=== PATIENT | male | born 1950 | race Caucasian/White ===

== ENCOUNTER 2022-01-17 22:57 | Inpatient (IN) | payer BC, MEDICARE ==
[2022-01-17] MEDS ORDERED: MORPHINE SULFATE 4 MG/ML SYRINGE IV STA (23:49)
[2022-01-18 00:29] LABS: Basophils % (A) 0 %; Eosinophils # (A) 0.1 k/uL (0-0.7); Eosinophils % (A) 1 %; HCT 43.8 % (39.0-53.0); HGB 13.9 gm/dL (13.0-17.5); Hypochromasia Slight; Lymphocytes # (A) 0.6 k/uL (1.0-4.8); Lymphocytes % (A) 6 %; MCH 26.7 pg (25.0-35.0); MCHC 31.7 g/dL (31.0-37.0); MCV 84.3 fL (80.0-100.0); Mean Platelet Volume 8.2; Monocytes # (A) 0.4 k/uL (0-1.0); Monocytes % (A) 4 %; Neutrophils # (A) 8.7 k/uL (1.3-7.7); Neutrophils % (A) 87 %; Platelet Count 189 k/uL (150-450); RBC 5.19 m/uL (4.30-5.90); RDW 15.9 % (11.5-15.5)
--- NOTE | 2022-01-18 00:49 | ED ---
Back Pain HPI - General Chief Complaint: Back Pain/Injury Stated Complaint: Back Pain Time Seen by Provider: 01/17/22 23:16 Source: patient, EMS Limitations: altered mental status - History of Present Illness Initial Comments: 's patient is 71-year-old man who presents with complaint of low back pain. He indicates approximately the L1-L2 level. The patient states that it is been present for weeks but seems to be worse tonight. He states that he was attempting to walk at his home when the pain became so great that he slumped to the floor and then was not able to get up for some time. They ended up calling EMS to bring him here. The patient also has some pain that radiates to his left leg. He is not having weakness or numbness of the extremities. No change in bladder or bowel function no saddle anesthesia. Patient was previously told that he had a compression fracture. He states that he had x-rays at an outside hospital that showed this. MD Complaint: back pain -: days(s) Similar Symptoms Previously: Yes Place: home Radiation: none Severity: severe Quality: aching Consistency: constant Improves With: none Worsens With: movement Associated Symptoms: denies other symptoms - Related Data Home Medications Medication Instructions Recorded Confirmed Furosemide [Lasix] 20 mg PO DAILY 01/18/22 01/18/22 Methadone [Dolophine] 2.5 mg PO Q12H 01/18/22 01/18/22 Potassium Chloride [Potassium 8 meq PO DAILY 01/18/22 01/18/22 Chloride ER] oxyCODONE-APAP 7.5-325MG [Percocet 1 tab PO Q6HR PRN 01/18/22 01/18/22 7.5-325 mg] Allergies Allergy/AdvReac Type Severity Reaction Status Date / Time cephalexin monohydrate Allergy Itching Verified 01/18/22 07:33 [From Keflex] Review of Systems ROS Statement: Those systems with pertinent positive or pertinent negative responses have been documented in the HPI. ROS Other: All systems not noted in ROS Statement are negative. Constitutional: Denies: fever, chills Respiratory: Denies: cough, dyspnea Cardiovascular: Denies: chest pain, palpitations Gastrointestinal: Denies: abdominal pain, nausea, vomiting Genitourinary: Denies: dysuria, hematuria Musculoskeletal: Reports: back pain Skin: Denies: rash Neurological: Denies: headache, weakness, numbness Past Medical History Additional Past Medical History / Comment(s): Patient previously had perforated sigmoid diverticulitis and had to establish colostomy which was reversed in August and has done well, back pain compression fx History of Any Multi-Drug Resistant Organisms: None Reported Past Surgical History: Appendectomy, Bowel Resection Additional Past Surgical History / Comment(s): colostomy reversed 11/19/13 Past Psychological History: No Psychological Hx Reported Past Alcohol Use History: None Reported, Occasional Past Drug Use History: None Reported General Exam Limitations: altered mental status General appearance: alert, in no apparent distress Head exam: Present: atraumatic, normocephalic Eye exam: Present: normal appearance. Absent: scleral icterus, conjunctival injection Neck exam: Present: normal inspection, full ROM Respiratory exam: Present: normal lung sounds bilaterally. Absent: respiratory distress, wheezes, rales, rhonchi, stridor Cardiovascular Exam: Present: regular rate, normal rhythm, normal heart sounds. Absent: systolic murmur, diastolic murmur, rubs, gallop GI/Abdominal exam: Present: soft. Absent: distended, tenderness, guarding, rebound, rigid, mass Extremities exam: Present: normal inspection, normal capillary refill, pedal edema, other (Neck venous stasis changes). Absent: tenderness, calf tenderness Back exam: Present: normal inspection, paraspinal tenderness. Absent: CVA tenderness (R), CVA tenderness (L) Neurological exam: Present: alert, reflexes normal. Absent: motor sensory deficit Skin exam: Present: warm, dry, intact, normal color. Absent: rash Course Vital Signs 01/17/22 01/18/22 23:06 01:16 Temperature 98.1 F Pulse Rate 102 H 95 Respiratory 18 Rate Blood Pressure 146/73 146/85 O2 Sat by Pulse 94 L Oximetry Medical Decision Making - Medical Decision Making Patient is 71-year-old man presenting with low back pain and radicular symptoms. No evidence of cauda equina at this time. His workup reveals suspected pathologic fracture as well as another lytic lesion of the bone. Patient be admitted to medical service with orthopedic surgery consult to further manage the fracture. - Lab Data Result diagrams: 01/19/22 05:52 01/19/22 05:52 Lab Results 01/18/22 01/18/22 01/18/22 Range/Units 00:20 00:20 00:20 WBC 10.0 (3.8-10.6) k/uL RBC 5.19 (4.30-5.90) m/uL Hgb 13.9 (13.0-17.5) gm/dL Hct 43.8 (39.0-53.0) % MCV 84.3 (80.0-100.0) fL MCH 26.7 (25.0-35.0) pg MCHC 31.7 (31.0-37.0) g/dL RDW 15.9 H (11.5-15.5) % Plt Count 189 (150-450) k/uL MPV 8.2 Neutrophils % 87 % Lymphocytes % 6 % Monocytes % 4 % Eosinophils % 1 % Basophils % 0 % Neutrophils # 8.7 H (1.3-7.7) k/uL Lymphocytes # 0.6 L (1.0-4.8) k/uL Monocytes # 0.4 (0-1.0) k/uL Eosinophils # 0.1 (0-0.7) k/uL Basophils # 0.0 (0-0.2) k/uL Hypochromasia Slight Sodium 136 L (137-145) mmol/L Potassium 4.3 (3.5-5.1) mmol/L Chloride 97 L (98-107) mmol/L Carbon Dioxide 30 (22-30) mmol/L Anion Gap 9 mmol/L BUN 21 H (9-20) mg/dL Creatinine 0.83 (0.66-1.25) mg/dL Est GFR (CKD-EPI)AfAm >90 (>60 ml/min/1.73 sqM) Est GFR (CKD-EPI)NonAf 89 (>60 ml/min/1.73 sqM) Glucose 105 H (74-99) mg/dL Calcium 8.7 (8.4-10.2) mg/dL Total Bilirubin 1.0 (0.2-1.3) mg/dL AST 27 (17-59) U/L ALT 21 (4-49) U/L Alkaline Phosphatase 92 (38-126) U/L Creatine Kinase 44 L (55-170) U/L CK-MB (CK-2) 1.9 (0.0-2.4) ng/mL Total Protein 6.8 (6.3-8.2) g/dL Albumin 3.5 (3.5-5.0) g/dL Disposition Clinical Impression: Mechanical back pain, Lytic lesion of bone on x-ray Disposition: ADMITTED IP TO THIS HOSP Condition: Poor Is patient prescribed a controlled substance at d/c from ED?: No
[2022-01-18] MEDS ORDERED: HYDROmorphone 1 MG/ML 1 ML SYRINGE IVP STA (01:25)
[2022-01-18 01:44] LABS: ALT 21 U/L (4-49); AST 27 U/L (17-59); African American GFR (CKD) >90 (>60 ml/min/1.73 sqM); Albumin 3.5 g/dL (3.5-5.0); Alkaline Phosphatase 92 U/L (38-126); Anion Gap 9 mmol/L; Blood Urea Nitrogen 21 mg/dL (9-20); Calcium 8.7 mg/dL (8.4-10.2); Carbon Dioxide 30 mmol/L (22-30); Chloride 97 mmol/L (98-107); Creatine Kinase 44 U/L (55-170); Glucose 105 mg/dL (74-99); Non-African American GFR(CKD) 89 (>60 ml/min/1.73 sqM); Potassium 4.3 mmol/L (3.5-5.1); Sodium 136 mmol/L (137-145); Total Protein 6.8 g/dL (6.3-8.2)
--- NOTE | 2022-01-18 01:50 | CT ---
EXAMINATION TYPE: CT lumbar spine wo con DATE OF EXAM: 01/18/2022 COMPARISON: None HISTORY: Fall CT DLP: 2589.6 mGycm Automated exposure control for dose reduction was used. Images obtained from the level of T9-S1 vertebra with no contrast. The lumbar vertebrae have normal a lignment. No significant lumbar disc space narrowing. No compression fracture. There are destructive changes in the T10 vertebral body with slight compression deformity of 20%. There is also apparent de struction of the posterior wall of the vertebral body and expansion into the spinal canal. Expansion is approximately 5 mm. There is some destruction of the left side pedicle. There is lytic lesion in the superior left side of the posterior L1 vertebral body. The visualized sacroiliac joints appear intact. There is hypertrophic facet arthropathy and moderate spinal stenosis at L4-5. IMPRESSION: There is destructive changes in the T10 vertebral body with expansion and pathologic fracture that co uld relate to tumor. No significant paraspinal mass seen to suggest osteomyelitis. There is expansion into the spinal canal and narrowing of the canal. Additional Lytic lesion in the L1 vertebral body. Spondylotic changes in the lumbar spine. L4-5 bony spinal stenosis.
[2022-01-18] MEDS ORDERED: ACETAMINOPHEN TAB 325 MG TAB PO PRN (02:13)
[2022-01-18] MEDS ORDERED: ONDANSETRON 4 MG/2 ML VIAL IVP PRN (02:13)
[2022-01-18] MEDS ORDERED: HYDROmorphone 0.5 MG/0.5 ML SYRINGE IVP PRN (02:13)
[2022-01-18] MEDS ORDERED: NALOXONE 0.4 MG/ML 1 ML VIAL IV PRN (02:13)
[2022-01-18] MEDS: SODIUM CHLORIDE 0.9% 1,000 ML IV SCH ×2 (03:59→21:20)
[2022-01-18] MEDS: HYDROmorphone 1 MG/ML 1 ML SYRINGE IVP PRN ×3 (05:27→17:25)
--- NOTE | 2022-01-18 10:32 | P.CNOR ---
History of Present Illness - HPI Consult date: 01/18/22 Consult reason: back pain History of present illness: Patient is a very pleasant 71-year-old male who we are counseled in regards to back pain. Apparently patient was found have a destructive lesion at T10 and newly diagnosed pulmonary nodule possible metastasis just past several weeks. The patient says that initially his pain started in October of this year when his dog jumped up on his test. He had increased pain at the middle of his back and went to urgent care was started on some steroid medication which helps him to some degree but the next day he was walking and sat on his couch and felt increased pain at the mid back. He went to the emergency room and had a computed tomography scan which showed possibility of lung nodule with metastasis. He started further management and evaluation for his possible long nodule metastasis. He was also told he had some disc bulging his lower back. He was given some pain medications and was able to mobilize and started with some physical therapy and chiropractic ambulation. The chiropractor evaluated the patient and took x-rays which showed some possible changes at T10 and the patient was sent for further evaluation. This was approximately 2 weeks ago as well. Past 2 weeks patient feels that he is been having worsening pain. He says he does have some shooting pain when he tries to move around his bilateral lower extremities on the left worse than the right. He denies any neurologic loss. He says he feels better when he lays down. He has pain when he tries to mobilize and change positions. He denies any changes in bowel bladder function. He denies any fevers chills or unexpected weight loss. He says he does somewhat hurt when he coughs or sneezes. He denies prior history of cancer or injury. Review of Systems As stated per HPI. Denies any fevers chills weight loss. Denies any night sweats. Denies a change in bowel bladder function. Denies any weakness of lower extremities but his back is significant pain whenever he tries to mobilize. Past Medical History Additional Past Medical History / Comment(s): Patient previously had perforated sigmoid diverticulitis and had to establish colostomy which was reversed in August and has done well, back pain compression fx History of Any Multi-Drug Resistant Organisms: None Reported Past Surgical History: Appendectomy, Bowel Resection Additional Past Surgical History / Comment(s): colostomy reversed 11/19/13 Past Psychological History: No Psychological Hx Reported Past Alcohol Use History: None Reported, Occasional Past Drug Use History: None Reported Medications and Allergies Home Medications Medication Instructions Recorded Confirmed Type Furosemide [Lasix] 20 mg PO DAILY 01/18/22 01/18/22 History Methadone [Dolophine] 2.5 mg PO Q12H 01/18/22 01/18/22 History Potassium Chloride [Potassium 8 meq PO DAILY 01/18/22 01/18/22 History Chloride ER] oxyCODONE-APAP 7.5-325MG [Percocet 1 tab PO Q6HR PRN 01/18/22 01/18/22 History 7.5-325 mg] Allergies Allergy/AdvReac Type Severity Reaction Status Date / Time cephalexin monohydrate Allergy Itching Verified 01/18/22 07:33 [From Keflex] Physical Examination Osteopathic Statement: *. No significant issues noted on an osteopathic structural exam other than those noted in the History and Physical/Consult. - L Spine: dermatomal strength & reflexes bilateral Strength: hip flexion: 5/5 (His back is nontender to palpation of the midline. He has pain when he tries to roll over. He is no saddle paresthesias. Negative Lasegue's. 5 out of 5 strength with dorsal flexion plantarflexion EHL. Sensory intact. His abdomen is obese but soft. His upper extremities have full active and pa) Strength: hip extension: 5/5 (Next nontender palpation range of motion. Upper extremity full active and passive range of motion.) Strength: knee flexion: 5/5 Strength: knee extension: 5/5 Strength: ankle dorsiflexion: 5/5 Strength: ankle plantar flexion: 5/5 Strength: ankle inversion: 5/5 Strength: ankle eversion: 5/5 Strength: great toe flexion: 5/5 Strength: great toe extension: 5/5 Reflexes: knee reflex: grade 2, ankle reflex: grade 2 Other reflexes: Babinski's: negative Results - Labs Labs: Abnormal Lab Results - Last 24 Hours (Table) 01/18/22 01/18/22 Range/Units 00:20 00:20 RDW 15.9 H (11.5-15.5) % Neutrophils # 8.7 H (1.3-7.7) k/uL Lymphocytes # 0.6 L (1.0-4.8) k/uL Sodium 136 L (137-145) mmol/L Chloride 97 L (98-107) mmol/L BUN 21 H (9-20) mg/dL Glucose 105 H (74-99) mg/dL Creatine Kinase 44 L (55-170) U/L H & H 01/18/22 Range/Units 00:20 Hgb 13.9 (13.0-17.5) gm/dL Hct 43.8 (39.0-53.0) % Result Diagrams: 01/18/22 00:20 01/18/22 00:20 - Diagnostic results CT Scan - lumbar: report reviewed (Lesion involves the vertebral body as well as the bilateral pedicles. It does seem to involve into the anterior aspect of the canal. There is some significant consultation anterior to T9 and T11), image reviewed (Lumbar computed tomography scan shows some degenerative disc disease lower back. He has a destructive-type lesion that T10. It is difficult to determine the extent of the lesion but does seem to involve the canal. There is no advanced collapse. The lesion does seem to involve the bilateral pedic) Assessment and Plan Assessment: T10 pathologic fracture with destructive lesion Thoracic back pain without acute neurologic loss Newly diagnosed pulmonary lesion with metastasis Plan: T10 pathologic fracture with destructive lesion Thoracic back pain without acute neurologic loss Newly diagnosed pulmonary lesion with metastasis The patient's pain seems to stem from the destructive lesion and likely pathologic fracture at T10. It is difficult to discern the full extent of the lesion and he will need further imaging with contrast MRI of his thoracic and lumbar spine. We should also obtain further imaging of entire spine and determine the extent of metastasis. Currently he is not having acute neurologic loss. He has good strength his bilateral lower extremities and functioning his bowel or bladder. I think we need to protect his spine while obtainings imaging and we will order him a TLSO brace and also have him on bedrest. His situation will be quite complex and we'll have to determine if he would do well with further surface at this hospital or consider the possibly of transfer to a tertiary facility. I'll discuss this further with my colleagues and determine the most appropriate course. We will continue to work on obtaining further imaging and keep him on bedrest at this point. I do not have plans for surgical intervention today and it is okay for him to have a regular diet today with nothing by mouth after midnight
[2022-01-18] MEDS ORDERED: HYDROmorphone 1 MG/ML 1 ML SYRINGE ONE (13:00)
[2022-01-18] MEDS ORDERED: DEXAMETHASONE SOD PHOSPHATE 10 MG/ML 1 ML VIAL IVP STA (17:04)
[2022-01-18] MEDS ORDERED: DEXAMETHASONE SOD PHOSPHATE 4 MG/ML 1 ML VIAL IVP PRN (17:04)
[2022-01-18] MEDS: METHADONE 5 MG TAB PO SCH (17:25)
[2022-01-18] MEDS: GABAPENTIN 300 MG CAP PO SCH ×2 (17:26→21:19)
[2022-01-18] MEDS: CYCLOBENZAPRINE 10 MG TAB PO SCH ×2 (17:26→21:19)
--- NOTE | 2022-01-18 17:43 | P.HPOR ---
History of Present Illness H&P Date: 01/18/22 Chief Complaint: back pain 71-year-old pleasant male presented to the emergency room with complaints of mid and low back pain has been going on since November. The patient states he got out of bed in November and felt a snap in his back and this is when most of his pain started. He is recently been worked up since October for a nodule on his long of which there has been no biopsy or diagnosis of as of yet. He presented to the emergency department in severe pain of his back with tingling and pain traveling down his lower extremities bilaterally. This was having so much so that he was unable to ambulate. He still states he has good strength in his lower extremities but it is difficult to move secondary to his pain in his back as well as the pain that goes down his legs. He denies any fevers or chills recently. He denies any shortness breath or chest pain at this time. He denies any recent weight gain or loss that is unintentional. He states no numbness or tingling in his genital region he states no bowel or bladder issues at this time. He does have a Weaver in place to is nonambulatory and bedridden status. There was pain with insertion of the Weaver as well as target. He denies any other symptoms at this time. His daughter is at bedside during examination and discussion. Review of Systems 14 points review of systems completed and as stated in HPI, all other systems reviewed are negative. Past Medical History Additional Past Medical History / Comment(s): Patient previously had perforated sigmoid diverticulitis and had to establish colostomy which was reversed in August and has done well, back pain compression fx History of Any Multi-Drug Resistant Organisms: None Reported Past Surgical History: Appendectomy, Bowel Resection Additional Past Surgical History / Comment(s): colostomy reversed 11/19/13 Past Psychological History: No Psychological Hx Reported Past Alcohol Use History: None Reported, Occasional Past Drug Use History: None Reported Medications and Allergies Home Medications Medication Instructions Recorded Confirmed Type Furosemide [Lasix] 20 mg PO DAILY 01/18/22 01/18/22 History Methadone [Dolophine] 2.5 mg PO Q12H 01/18/22 01/18/22 History Potassium Chloride [Potassium 8 meq PO DAILY 01/18/22 01/18/22 History Chloride ER] oxyCODONE-APAP 7.5-325MG [Percocet 1 tab PO Q6HR PRN 01/18/22 01/18/22 History 7.5-325 mg] Allergies Allergy/AdvReac Type Severity Reaction Status Date / Time cephalexin monohydrate Allergy Itching Verified 01/18/22 07:33 [From Keflex] Physical Examination Osteopathic Statement: *. No significant issues noted on an osteopathic structural exam other than those noted in the History and Physical/Consult. PHYSICAL EXAMINATION: Vitals: [VS] General: Awake, alert, appropriate for age, in no acute distress. HEENT: No unusual neck masses around region of lateral neck triangle, thyroid, supraclavicular groove. Extremities: Skin warm and dry without no acute lesions, coloration, temperature, skin intact, no tenderness or erythema. Integument: Hairy patches: Absent Dorsal skin dimples: Absent Cafe au lait spots: Absent Surgical incisions: no back incisions noted Palpation: Please see Pain drawing on Intake sheet for further detail. (Tenderness = T, Nontender = NT, Swelling = S, Ecchymosis = E) Findings on Midline and paraspinal palpation and percussion: Cervical: NT Thoracic: midline and paraspinal tenderness to palpation Lumbar: midline tenderness to palpation as well as paraspinal tenderness to palpation Sacral: NT Special findings: [] POSTURAL and MUSCULO-SKELETAL EVALUATION: Neck ROM: [Unrestricted in six directions] Lumbar ROM: restricted at this time as the patient is somewhat bedridden and cannot move due to the pain Shoulder ROM: Symmetric in abduction, ER/IR Hip ROM: Symmetric in abduction, adduction, ER/IR Knee ROM: Symmetric and intact in Flexion / extension Hands: Normal appearing structure L and R Feet: Normal appearing structure L and R VASCULAR STATUS : Wrist Pulses: [2/4 bilateral radial and ulnar] Pedal Pulses: [2/4 bilateral DP and PT] Color: mottling lower extremities anterior tibial portion, vasculopath Edema: 2+ pitting edema bilateral lower extremities NEUROLOGIC EXAMINATION: Mental Status: Awake and alert, fully oriented, with normal attention, concentration and memory, and fluent, appropriate speech. Cranial Nerves: I: Olfactory not tested. II: Visual acuity normal, no visual field deficit noted with confrontation. III,IV: Normal pupillary reflexes & intact extraocular movements without nystagmus. V,: Intact symmetrical facial sensation. VII: Intact symmetrical facial motor movement VIII: Hearing intact. IX,X: Intact gag, swallow, & normal voice. XI: Sternocleidomastoid, trapezius function intact. XII: Tongue midline with normal movements. Special Tests: Cubital percussion test: Absent Bilateral Sarah-Tinel sign - Carpal region: Absent Bilateral Straight Leg Raising: Absent Bilateral Motor Exam (0-5/5, N/T) STRENGTH UPPER EXTREMITY Shoulder Abd (Not part of PAUL Motor score): RIGHT [5] LEFT [5] Elbow Flexors: RIGHT [5] LEFT [5] Elbow Extensor: RIGHT [5] LEFT [5] Wrrist Dorsiflexors: RIGHT [5] LEFT [5] Finger Abductor: RIGHT [5] LEFT [5] Account Consultant: RIGHT [5] LEFT [5] LOWER EXTREMITY Hip Flexor (Not part of PAUL Motor Score): RIGHT 4 LEFT 4 this is secondary to pain at this time Knee Flexor: RIGHT 4 LEFT 4 also secondary to pain and difficult to do due to the pain that he is in his back Knee Extensor: RIGHT 4 LEFT 4 secondary to pain Ankle Dorsiflexion: RIGHT [5] LEFT [5] Ankle Plantarflexion: RIGHT [5] LEFT [5] EHL: RIGHT [5] LEFT [5] FHL: RIGHT [5] LEFT [5] PAUL Motor Score: RIGHT [50]/50 LEFT [50]/50 REFLEXES Biecp: RIGHT [2] LEFT [2] Tricep: RIGHT [2] LEFT [2] Brachioradialis: RIGHT [2] LEFT [2] Patellar: RIGHT [2] LEFT [2] Achilles: RIGHT [2] LEFT [2] Pathological Reflexes Barlow's: RIGHT [Absent] LEFT [Absent] Babinski: RIGHT [Absent] LEFT [Absent] Clonus: RIGHT [None] LEFT [None] SENSORY Joint Position: [Intact bilaterally] Vibration [Intact bilaterally] Pain and LT sense [Intact C5-T1 and L2-S1] Dermatomal deficit [None] Gait and Functional Evaluation: nonambulatory at this time due to pain Results CT of the lumbar spine is reviewed this demonstrates overall fairly well- maintained alignment throughout the lumbar and visualized thoracic spine. There are vacuum disks at L4 5 and L5-S1 which are noted. There is facet arthrosis L4 5 and L5-S1 which is moderate to severe. Lumbar lordosis is otherwise main tained. At T10 there is what appears to be a fracture which has features resembling a pathologic type fracture there is lytic bony destruction that is noted anteriorly within the vertebral body that tracks into bilateral pedicles. There is retropulsion of the posterior body wall into the spinal canal. The fracture when classified is likely an AO Type B2 fracture with a component of A4 burst. posterior tension band appears relatively intact. It is difficult to discern on this exam as it does not completely visualize the above and below levels. However the extension and the pedicle is concerning for posterior column involvement and potential instability along with the patient's increased pain. There are large anterior osteophytic changes of the adjacent segments which could also mean that this is a extension type fracture however this is again difficult to determine. MRI will better quantify the amount of stenosis related to this as well as a CT of the thoracic spine which will help visualize the above segments better. Due to the potential pathologic nature of this fracture MRIs should be done of the cervical thoracic and lumbar spine with and without contrast a thoracic CT is ordered as well for further visualization. there is a lytic foci noted in the L1 vertebral body on the left-hand side in the superior lateral portion just above the pedicle this also seems to have a central nidus of bone with surrounding lytic complex. No overt fracture of this area noted. There are other lytic foci within T12 articular processes as well as the spinous processes in the lower lumbar segments. - Labs Labs: Abnormal Lab Results - Last 24 Hours (Table) 01/18/22 01/18/22 Range/Units 00:20 00:20 RDW 15.9 H (11.5-15.5) % Neutrophils # 8.7 H (1.3-7.7) k/uL Lymphocytes # 0.6 L (1.0-4.8) k/uL Sodium 136 L (137-145) mmol/L Chloride 97 L (98-107) mmol/L BUN 21 H (9-20) mg/dL Glucose 105 H (74-99) mg/dL Creatine Kinase 44 L (55-170) U/L H & H 01/18/22 Range/Units 00:20 Hgb 13.9 (13.0-17.5) gm/dL Hct 43.8 (39.0-53.0) % Result Diagrams: 01/18/22 00:20 01/18/22 00:20 Assessment and Plan Assessment: 71 yo male mid/low back pain, severe Likely pathological fracture T10 AO type B2/A4 burst LE radiculopathy b/l LE weakness b/l L1 lytic foci Left Lung lobe nodule complex medical patient Plan: -Appreciate mental hygiene consultant and team management -Agree with urgent MRI CTL spine w/wo contrast for further characterization and visualization of T10 fracture, tumor and stenosis as well as neuraxis. Would likely need Brain MRI as some point as well if metastasis is confirmed for staging. -CT of T spine for better visualization of above levels as well as surgical planning -Consult to cardiology for clearance and work up for surgical intervention -decadron 10 mg IVP x1 then 6mg IV q 4 hr for neural protection and radicular symptoms -Gabapentin 300mg TID for nerve pain -Flexeril 10 mg TID for muscle spasms -Cont with oral and IV pain meds as needed -Cont with bed rest. Agree with TLSO brace. Pt did not tolerate fitting today, will try again tomorrow with better pain control. Does not need TLSO for MRI, but spine precautions need to be adhered to for MRI and CT -OK for HOB to comfort for patient -Plan for surgical stabilization T7 to L1-2 on Saturday01/23/22 once work up completed. If biopsy of lung can be done before this for possible dx that is fine. Will do pathology intraop as well. Need to rule out primary. Discussed all this at length with patient and his daughter who was at bedside. They understood and were on board with moving forward with work up and surgical stabilization due to patients extreme pain as well as LE pain, radiculopathy, weakness and inability to ambulate. We discussed potential outcomes as well as limitations of surgery and treatments. They understood. We will continue to follow and update them as his work up unfolds.
--- NOTE | 2022-01-18 19:50 | HP ---
HISTORY AND PHYSICAL CHIEF COMPLAINT: Back pain. HISTORY OF PRESENT ILLNESS: This 71-year-old gentleman with a past medical history of multiple medical problems, including appendectomy, bowel resection, being followed by Dr. Tre Ortega in the outpatient setting, was complaining of back pain. Prior to admission the patient apparently had severe back pain and apparently almost fell to the ground because of severe back pain. The patient was sent to [facility] and Dr. Domínguez saw the patient. The patient was found to have a destructive lesion at T10 and the patient had a newly diagnosed pulmonary nodule with possible metastasis. The patient is being evaluated for the same. The patient is admitted for further evaluation and treatment. There is no history of any fever, rigor or chills at this time. PAST MEDICAL HISTORY: History of recently diagnosed pulmonary nodule, appendectomy, bowel resection. HOME MEDICATIONS: Reviewed. They include oxycodone. Doses are reviewed. ALLERGIES: KEFLEX. FAMILY HISTORY: No history of heart disease or strokes in the family. SOCIAL HISTORY: Previous history of smoking. REVIEW OF SYSTEMS: Fourteen-point review of systems negative except as mentioned earlier. PHYSICAL EXAMINATION: Pulse is 104, blood pressure 144/81, respiration 18. HEENT: Conjunctivae normal. NECK: No jugular venous distention. CARDIOVASCULAR: S1, S2 muffled. RESPIRATION: Breath sounds diminished at the bases. Bilateral scattered rhonchi and crackles. ABDOMEN: Soft, nontender. LEGS: No edema. No swelling. NERVOUS SYSTEM: Diffusely weak. No focal deficit. EXAMINATION OF THE BACK: Tenderness present. SKIN: No ulcer, rash, bleeding. JOINTS: No active deforming arthropathy. LYMPHATICS: No lymph node palpable in neck, axillae or groin. LABS: Reviewed. Sodium ntd ASSESSMENT: 1. T10 and L1 vertebral body lesion, possibly lytic lesion; rule out secondary. 2. Severe back pain. 3. Pulmonary nodule. Rule out malignancy. 4. Hyponatremia. 5. Severe pain. 6. Gait dysfunction. RECOMMENDATIONS AND DISCUSSION: In this 71-year-old gentleman who presented with multiple complex medical issues, we will monitor the patient closely. Pain management. Orthopedic Surgery has seen the patient. I would also recommend hematology/oncology and pulmonology also. Guarded prognosis because of multiple complex medical issues. Further recommendations to follow. Discussed with the patient. See orders for further details. MMODL / IJN: [id number] / AMANDA
[2022-01-18] MEDS: HEPARIN SODIUM,PORCINE/PF 5,000 UNIT/0.5 ML SYRINGE SQ SCH (21:19)
--- NOTE | 2022-01-19 07:19 | P.CRDCN ---
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 Apparently the patient presented to the emergency department complaining of low back pain since November. He stated that last few days the pain was severe and was associated with tingling traveling down to the lower extremities. No other symptoms of any pain in the chest or shortness of breath. The patient underwent a workup and that revealed a destructive lesion involving T10. Subsequently he was seen by the orthopedic service. He underwent a workup including computed tomography scan and currently is in process of having an MRI. The workup seems to be consistent with possible malignancy because the patient was found to have a long nodule. He reports no pain in the chest and no shortness of breath and no dizziness or lightheadedness and no feeling of heart racing or fluttering and no presyncope or syncope. He also has no history of coronary artery disease or congestive heart failure or cardiac arrhythmia. Hemodynamically he is stable beside being slightly tachycardic and hypertensive. No EKG was done but is in process of getting one. The patient potentially is going to undergo surgical started as elevation of T10 to be performed in the next 24-48 hours. From a cardiovascular standpoint of view, the patient is stable to undergo the procedure and meanwhile I'm going to start the patient on small dose of beta kellen was metoprolol tartrate 12.5 mg by mouth twice a day because of the hypertension and tachycardia. On examination he does have distant heart sounds with a systolic murmur I'm going to obtain an echo for further clarification Past Medical History Additional Past Medical History / Comment(s): Patient previously had perforated sigmoid diverticulitis and had to establish colostomy which was reversed in August and has done well, back pain compression fx History of Any Multi-Drug Resistant Organisms: None Reported Past Surgical History: Appendectomy, Bowel Resection Additional Past Surgical History / Comment(s): colostomy reversed 11/19/13 Past Psychological History: No Psychological Hx Reported Past Alcohol Use History: None Reported, Occasional Past Drug Use History: None Reported Medications and Allergies Home Medications Medication Instructions Recorded Confirmed Type Furosemide [Lasix] 20 mg PO DAILY 01/18/22 01/18/22 History Methadone [Dolophine] 2.5 mg PO Q12H 01/18/22 01/18/22 History Potassium Chloride [Potassium 8 meq PO DAILY 01/18/22 01/18/22 History Chloride ER] oxyCODONE-APAP 7.5-325MG [Percocet 1 tab PO Q6HR PRN 01/18/22 01/18/22 History 7.5-325 mg] Allergies Allergy/AdvReac Type Severity Reaction Status Date / Time cephalexin monohydrate Allergy Itching Verified 01/18/22 07:33 [From Keflex] Physical Exam Vitals: Vital Signs Temp Pulse Resp BP Pulse Ox 01/19/22 05:00 98.0 F 93 16 154/88 93 L 01/18/22 21:00 98.0 F 109 H 16 144/85 93 L Intake and Output 01/18/22 01/19/22 01/19/22 22:59 06:59 14:59 Intake Total 900 0 Output Total 950 Balance 900 -950 Intake: Intake, IV Titration 900 Amount Sodium Chloride 0.9% 1, 900 000 ml @ 75 mls/hr IV . [id number] [facility] Rx#:[id number] Oral 0 Output: Urine 950 Uretheral (Weaver) 950 Other: Voiding Method Indwelling Catheter - Constitutional General appearance: no acute distress - Respiratory Respiratory: bilateral: CTA - Cardiovascular Rhythm: regular Heart sounds: normal: S1, S2 Abnormal Heart Sounds: systolic murmur Results 01/18/22 00:20 01/18/22 00:20 Current Medications Generic Name Dose Route Start Last Admin Trade Name Flyq PRN Reason Stop Dose Admin Acetaminophen 650 mg 01/18/22 02:13 Acetaminophen Tab 325 Mg Tab PO Q6HR PRN Mild Pain or Fever > 100.5 Cyclobenzaprine HCl 10 mg 01/18/22 17:15 01/18/22 21:19 Cyclobenzaprine 10 Mg Tab PO 10 mg TID KRISTIAN Administration Dexamethasone Sodium Phosphate 6 mg 01/18/22 17:04 Dexamethasone Sod Phosphate 4 Mg/Ml 1 Ml Vial IVP Q4HR PRN Nausea And Vomiting Furosemide 20 mg 01/19/22 09:00 Furosemide 20 Mg Tab PO DAILY KRISTIAN Gabapentin 300 mg 01/18/22 17:15 01/18/22 21:19 Gabapentin 300 Mg Cap PO 300 mg TID KRISTIAN Administration Heparin Sodium (Porcine) 5,000 unit 01/18/22 21:00 01/18/22 21:19 Heparin Sodium,Porcine/Pf 5,000 Unit/0.5 Ml Syringe SQ 5,000 unit Q12HR KRISTIAN Administration Hydromorphone HCl 0.5 mg 01/18/22 02:13 Hydromorphone 0.5 Mg/0.5 Ml Syringe IVP Q3HR PRN Moderate Pain Hydromorphone HCl 1 mg 01/18/22 02:13 01/18/22 17:25 Hydromorphone 1 Mg/Ml 1 Ml Syringe IVP 1 mg Q3HR PRN Administration Severe Pain Sodium Chloride 1,000 mls @ 75 mls/hr 01/18/22 02:15 01/18/22 21:20 Saline 0.9% IV 75 mls/hr .[id number] KRISTIAN Administration Methadone HCl 2.5 mg 01/18/22 18:00 01/18/22 17:25 Methadone 5 Mg Tab PO 2.5 mg Q12H KRISTIAN Administration Metoprolol Tartrate 12.5 mg 01/19/22 09:00 Metoprolol Tartrate 12.5 Mg Tab PO BID KRISTIAN Naloxone HCl 0.2 mg 01/18/22 02:13 Naloxone 0.4 Mg/Ml 1 Ml Vial IV Q2M PRN Opioid Reversal Ondansetron HCl 4 mg 01/18/22 02:13 Ondansetron 4 Mg/2 Ml Vial IVP Q8HR PRN Nausea And Vomiting Oxycodone/Acetaminophen 1 each 01/18/22 10:08 Oxycodone-Apap 7.5-325mg 1 Each Tab PO Q6HR PRN Pain Pantoprazole Sodium 40 mg 01/19/22 07:30 Pantoprazole 40 Mg Tablet PO AC-BRKFST KRISTIAN Potassium Chloride 10 meq 01/19/22 09:00 Potassium Chloride Er 10 Meq Tab.Er.Prt PO DAILY KRISTIAN Intake and Output 01/18/22 01/19/22 01/19/22 22:59 06:59 14:59 Intake Total 900 0 Output Total 950 Balance 900 -950 Intake: Intake, IV Titration 900 Amount Sodium Chloride 0.9% 1, 900 000 ml @ 75 mls/hr IV . [id number] [facility] Rx#:[id number] Oral 0 Output: Urine 950 Uretheral (Weaver) 950 Other: Voiding Method Indwelling Catheter 01/18/22 00:20 01/18/22 00:20 Assessment and Plan Assessment: Assessment #1 destructive lesion involving T10. Possible malignant lesion. #2 morbid obesity #3 hypertension #4 sinus tachycardia Plan #1 the patient is a stable to undergo the surgical stabilization of the spine #2 the start the patient on small dose of beta kellen #3 obtain an echocardiogram was Doppler #4 follow-up with the patient
[2022-01-19] MEDS: PANTOPRAZOLE 40 MG TABLET PO SCH (08:32)
[2022-01-19] MEDS: FUROSEMIDE 20 MG TAB PO SCH (08:32)
[2022-01-19] MEDS: GABAPENTIN 300 MG CAP PO SCH ×3 (08:32→20:31)
[2022-01-19] MEDS: METHADONE 5 MG TAB PO SCH ×2 (08:32→17:49)
[2022-01-19] MEDS: CYCLOBENZAPRINE 10 MG TAB PO SCH ×3 (08:32→20:32)
[2022-01-19] MEDS: METOPROLOL TARTRATE 12.5 MG TAB PO SCH ×2 (08:33→20:32)
[2022-01-19] MEDS: POTASSIUM CHLORIDE ER 10 MEQ TAB.ER.PRT PO SCH (08:33)
[2022-01-19] MEDS: HEPARIN SODIUM,PORCINE/PF 5,000 UNIT/0.5 ML SYRINGE SQ SCH (08:34)
--- NOTE | 2022-01-19 08:41 | CT ---
EXAMINATION TYPE: CT thoracic spine w con DATE OF EXAM: 01/19/2022 COMPARISON: CT lumbar spine from yesterday. Outside PET/CT 11 days ago HISTORY: T10 lesion/fracture. Back pain post fall. CT DLP: 2700 mGycm Automated exposure control for dose reduction was used. CONTRAST: Performed with IV Contrast, patient injected with 100ml mL of Isovue 300. FINDINGS: Redemonstration of lytic destructive lesion through the T10 vertebra with relative preservation of he ight. Degree of destruction is greatest anteriorly. Slight posterior retropulsion measuring 3 mm is f elt present with poor visualization of the posterior vertebral body margin suggesting lytic involveme nt on the sagittal images. Axial images confirm abnormal soft tissue extending 3 to 4 mm into the ant erior spinal canal at this level. There is redemonstration of a lytic 1.2 cm round lesion posterior left L1 level with central nidus ax ial image 129. Coronal images show scoliotic curvature. Large anterior osteophytes in the mid to lowe r thoracic spine greater right of midline are noted. No additional suspicious lytic or sclerotic lesi ons clearly seen in the thoracolumbar spine. There is moderate disc space narrowing C5-C6 and C6-C7 l evels incidentally seen. Spinal canal grossly preserved. No abnormal postcontrast enhancement is appr eciated There are small to tiny right greater than left pleural effusions. Normal excretion from both kidneys is seen. There is partial visualization of thin-walled cyst or cystic lesion laterally in the left k idney. Some fat replaced atrophy of the pancreas is present. 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 IMPRESSION: Lytic destructive T10 lesion with some anterior spinal canal effacement. Additional round lytic lesion in L1 vertebra redemonstrated.
[2022-01-19 08:46] LABS: Basophils # (A) 0.01 X 10*3/uL (0.00-0.10); Basophils % (A) 0.2 %; Eosinophils # (A) 0 X 10*3/uL (0.04-0.35); Eosinophils % (A) 0 %; HCT 45.9 % (39.6-50.0); Immature Grans, Automated 0.5 %; Lymphocytes # (A) 0.66 X 10*3/uL (0.90-5.00); MCH 25.7 pg (27.0-32.0); MCHC 30.5 g/dL (32.0-37.0); MCV 84.2 fL (80.0-97.0); Monocytes # (A) 0.16 X 10*3/uL (0.20-1.00); Monocytes % (A) 2.4 %; NRBC Per 100 WBC 0 /100 WBCS (0.0-0.0); Neutrophils # (A) 5.76 X 10*3/uL (1.80-7.70); Neutrophils % (A) 86.9 %; Platelet Count 192 X 10*3/uL (140-440); RBC 5.45 X 10*6/uL (4.40-5.60); RDW 16.3 % (11.5-14.5); WBC 6.62 X 10*3/uL (4.50-10.00)
--- NOTE | 2022-01-19 09:14 | MR ---
EXAMINATION TYPE: MR tspine/lspine wo/w con DATE OF EXAM: 01/19/2022 COMPARISON: CT thoracic spine earlier today. CT lumbar spine yesterday. HISTORY: T10 destructive lesion TECHNIQUE: Multiplanar, multisequence imaging of thoracic thoracic and lumbar spine are performed wit hout and with IV contrast. Patient injected with 15 cc of gadolinium. FINDINGS: Corresponding to recent CT there is heterogeneous lesion of low T1 and T2 signal centered i nvolving the anterior T10 vertebra without postcontrast enhancement causing mild height loss. There is slight posterior retropulsion of the posterior T10 vertebral body margin into the spinal canal chanelle suring up to 4 mm on sagittal image 8 causing slight increased T2 signal or cord edema confirmed on a xial image 11. No definitive bony destruction or extension of the more anterior low T1 and increased T2 lesion through the vertebral body margin as seen on MRI versus CT. Remainder of thoracic spine shows mild to moderate multilevel anterior spurring. There are multilevel small posterior disc herniation mildly effacing anterior thecal sac throughout the upper to midthora cic spine. There are small tiny bilateral pleural effusions redemonstrated. Images of lumbar spine show conus medullaris terminating at the inferior T12 levels without abnormal signal or clumping of lumbosacral nerve roots. There is nonspecific 3 mm round hyperintense or enhanc ing lesions superior L4 level sagittal image 8 corresponding to subtle round T2 hypointense lesion no miriam sagittal image 9 series 1101. This is less well seen on axial images. The lytic lesion on CT post erior superior L1 level is slightly hypointense on T1-weighted images without enhancement and fairly isointense on T2-weighted images on both sagittal and axial images without bony breakthrough. No spin al canal effacement. Multilevel disc desiccation is present. Vacuum disc phenomenon L4-L5 level is seen. There is facet ar thropathy and ligamentum flavum hypertrophy effacing the posterolateral thecal sac in the mid to lowe r lumbar spine on axial images this is greatest at the L4-L5 level axial image 10 series 1301. IMPRESSION: As above. Some cord edema due to expansile T10 lesion causing posterior T10 vertebral bod y margin bulging. Lesion at L1 level is less well impressive without spinal canal involvement. A 3 mm round intradural extra medullary suspected enhancing lesion superior L4 level is nonspecific but con cerning for possible drop metastatic focus.
[2022-01-19 09:55] LABS: African American GFR (CKD) 104.2 (60.0-200.0); Anion Gap 11.2 mmol/L (10.00-18.00); BUN/Creat Ratio 21.25 Ratio (12.00-20.00); Calcium 8.4 mg/dL (8.7-10.3); Carbon Dioxide 25.8 mmol/L (20.0-27.5); Non-African American GFR(CKD) 89.9 (60.0-200.0); Potassium 4.9 mmol/L (3.5-5.5)
[2022-01-19] MEDS: SODIUM CHLORIDE 0.9% 1,000 ML IV SCH ×2 (12:24→20:15)
--- NOTE | 2022-01-19 15:20 | P.CNPUL ---
History of Present Illness Consult date: 01/19/22 Reason for consult: lung mass History of present illness: 71-year-old male patient referred to me for a pulmonary nodule with a concern of underlying malignancy. This is a morbidly obese white male patient who is quite debilitated due to chronic back problems and arthritis. The patient has been living independently and [place] and he has been very limited in terms of his exercise capacity due to chronic back pain. Currently is taking methadone as maintenance for chronic back pain and takes Nenana on an as-needed basis. He moves around with help of a walker. Despite his limitations due to his obesity and his chronic back pain, the patient has been able to live independently. Denies having any respiratory difficulties. No reported cough sputum production chest tightness or wheezing. No hemoptysis. Recently, he had his dog jump on his chest which she thought caused some injury to his thoracic cage. He was complaining of pain and further investigation was done including a a CT that was done on 11/17/2021 that showed a lobulated spiculated 1.7 cm nodule in the right lung base, 7 mm pulmonary nodule in the right lower lobe and a 6 mm nodule in the right minor fissure.there was also evidence of centrilobular emphysema in the upper lobes and dependent atelectatic changes. This was followed up by a PET/CT that was done on 01/08/2022 and the PET scan showed increased FDG activity within the 1.7 cm nodule in the right lung base with an SUV of 9.54. In addition, there was a right hilar lymph node with a maximum SUV of 23. No abdomi nal metabolic activity within the abdomen. No activity within the pelvis. In terms of the bony structures, there was a metastatic deposit in the sternum with a maximum SUV of 16.06 and another T1 vertebral body lesion on the left and some metastatic deposits extending from T10 through L4 vertebral bodies. The findings were compatible with metastatic lung cancer and the patient was referred to me a ccordingly. There was some vague activity in the right parotid gland also. The patient is an ex-smoker. He has worked for the automotive industry in the past. this patient is morbidly obese. Denies having obstructive sleep apnea. He has chronic venous stasis and chronic edema lower extremities along with some chronic skin ulceration the legs for which she is doing wound care. No altered mentation. No headaches. He has exertional dyspnea. No dyspnea at rest. No angina. No palpitation. No cardiac arrhythmias. No recurrent pneumonias. No recurrent bronchitis and no history of any DVT or pulmonary embolism. . . No reported history of change in his voice quality, hoarseness, or hemoptysis. The patient doesn't utilize any form of respiratory medications or inhalers. He been on Lasix regarding his chronic lower extremity edema. I saw this patient my office on 01/17/2022 and I was planning to proceed with a lung biopsy. After the patient left my office, the patient became weak in the lower extremities to the point where he collapsed and he was unable to walk. The patient's stated that he had also some chronic back pain and was progressively getting more weak. He also reported some tingling in lower extremity is bilaterally. He had good strength in his upper extremities. No loss in the bowel and bladder control. Based on that, he presented himself to the MRSA problem and the patient's underwent further investigation. CAT scan of the lumbar spine was done and it showed facet arthrosis at the level of L4-L5 and L5-S1 which is moderate to severe in nature along with lumbar lordosis. The level of T10, there is a fracture which has the features of a pathologic fracture and there is a lytic bony destruction noted anteriorly within the vertebral body that tracks down into the pedicles. There is also retropulsion of the posterior body wall into the spinal canal. The patient was seen by spine surgery. There was a concern for the posterior column involvement and potential ly stability of the spine. There was also an anterior largest synthetic changes of the adjacent segments. There was also an L1 vertebral body lesion and other lytic foci at the level of T12. Based on all this, the patient is being considered for surgical stabilization of the spine. This may be an opportunity also to establish tissue diagnosis of this patient. For now, the patient on Decadron. He is resting, comfortably in bed. No Tay shortness of breath. Note that his FEV1 was also low in the spirometry. In my office showed a combination of obstructive and restrictive physiology. His FEV1 was in order of 32% of predicted. Review of Systems Patient reports exercise intolerance but reports no fever, no night sweats, and no significant weight loss. He reports snoring but reports no sore throat, no bleeding gums, no dry mouth, no mouth ulcers, and no teeth problems. He reports shortness of breath when walking but reports no chest pain, no arm pain on exertion, no shortness of breath when lying down, no palpitations, and no known heart murmur. He reports shortness of breath but reports no cough, no wheezing, no coughing up blood, and no sleep apnea. He reports arthralgias/joint pain and swelling in the extremities but reports no muscle aches, no muscle weakness, and no back pain. He reports no abnormal mole, no jaundice, no rashes, and no l aceration; soreness and skin lesion. He reports fatigue. He reports no dry eyes, no vision change, and no irritation. He reports no difficulty hearing and no ear pain. He reports no frequent nosebleeds, no nose problems, and no sinus problems. He reports no abdominal pain, no nausea, no vomiting, no constipation, normal appetite, no diarrhea, not vomiting blood, no dyspepsia, and no GERD. He reports no incontinence, no difficulty urinating, no hematuria, and no increased frequency. He reports no loss of consciousness, numbness / motor weakness in the lower extremities bilaterally, no seizures, no dizziness, no migraines, no headaches, and no tremor. He reports no depression, no sleep disturbances, feeling safe in a relationship, no alcohol abuse, no anxiety, no hallucinations, and no suicidal thoughts. He reports no swollen glands, no bruising, and no excessive bleeding. He reports no runny nose, no sinus pressure, no itching, no hives, and no frequent sneezing. In addition, the patient has been complaining of significant motor weakness on lower extremity is bilaterally Past Medical History Additional Past Medical History / Comment(s): Patient previously had perforated sigmoid diverticulitis and had to establish colostomy which was reversed in August and has done well, back pain compression fx History of Any Multi-Drug Resistant Organisms: None Reported Past Surgical History: Appendectomy, Bowel Resection Additional Past Surgical History / Comment(s): colostomy reversed 11/19/13 Past Psychological History: No Psychological Hx Reported Past Alcohol Use History: None Reported, Occasional Past Drug Use History: None Reported Medications and Allergies Home Medications Medication Instructions Recorded Confirmed Type Furosemide [Lasix] 20 mg PO DAILY 01/18/22 01/18/22 History Methadone [Dolophine] 2.5 mg PO Q12H 01/18/22 01/18/22 History Potassium Chloride [Potassium 8 meq PO DAILY 01/18/22 01/18/22 History Chloride ER] oxyCODONE-APAP 7.5-325MG [Percocet 1 tab PO Q6HR PRN 01/18/22 01/18/22 History 7.5-325 mg] Allergies Allergy/AdvReac Type Severity Reaction Status Date / Time cephalexin monohydrate Allergy Itching Verified 01/18/22 07:33 [From Keflex] Physical Exam Vitals: Vital Signs Temp Pulse Resp BP Pulse Ox 01/19/22 13:55 98.3 F 99 18 127/78 93 L 01/19/22 11:48 93 16 01/19/22 05:00 98.0 F 93 16 154/88 93 L 01/18/22 21:00 98.0 F 109 H 16 144/85 93 L Intake and Output 01/19/22 01/19/22 01/19/22 06:59 14:59 22:59 Intake Total 0 Output Total 950 Balance -950 Intake: Oral 0 Output: Urine 950 Uretheral (Weaver) 950 Other: Voiding Method Indwelling Catheter Results - Laboratory Findings CBC and BMP: 01/19/22 05:52 01/19/22 05:52 Abnormal lab findings: Abnormal Labs 01/18/22 01/18/22 01/19/22 00:20 00:20 05:52 MCH 25.7 L MCHC 30.5 L RDW 15.9 H 16.3 H Neutrophils # 8.7 H Lymphocytes # 0.6 L 0.66 L Monocytes # 0.16 L Eosinophils # 0 L Sodium 136 L Chloride 97 L BUN 21 H BUN/Creatinine Ratio Glucose 105 H Calcium Creatine Kinase 44 L 01/19/22 05:52 MCH MCHC RDW Neutrophils # Lymphocytes # Monocytes # Eosinophils # Sodium Chloride BUN BUN/Creatinine Ratio 21.25 H Glucose 128 H Calcium 8.4 L Creatine Kinase Assessment and Plan Plan: Acute on chronic lower back pain in addition to suspected pathologic fracture of the level of T10 with unstable spine. The patient is weakness and radiculopathy bilaterally. Patient also has metastatic foci the level of L1 spine. Lung mass/Nodule of lung - I reviewed the CAT scan of the chest and the PET scan. In summary, the patient has a 1.7 cm right lower lobe pulmonary nodule with increased FDG an SUV of 9.54 in addition to a right hilar lymph node with an SUV of 23. The patient also has intense uptake within the sternum and SUV of 16.06 and the findings are highly suspicious for metastatic lung cancer. The activity within the thoracic and lumbar spine was also noted.. For now, there is a suspicion that the patient has metastatic lung cancer and needs to be furth er investigated. He was made aware. He is known to have COPD. Is an ex-smoker. Chronic obstructive lung disease - the spirometry shows a combination of obstructive and restrictive pulmonary physiology. FEV1 is no other of 32% of predicted at baseline. The patient does not use any form of respiratory medications or inhalers and his resting pulse ox is 96%. J44.9: Chronic obstructive pulmonary disease, unspecified Morbid obesity E66.01: Morbid (severe) obesity due to excess calories Stasis dermatitis of lower limb due to chronic peripheral venous hypertension - with secondary ulcerations I87.399: Chronic venous hypertension (idiopathic) with other complications of unspecified lower extremity Chronic back pain - with significant limitation of mobility and the patient is moving around without a walker and wheelchair. He is on methadone and Nenana on an aggressive basis for breakthrough pain. Plan We'll start the patient on DuoNeb neb last treatment [id number] Provide the patient is in a spirometer The patient is going to undergo a spine surgery for stabilization and this will be an opportunity to establish a tissue diagnosis. The patient seeking cardiac clearance. Follow pulmonary standpoint, the patient carries a high risk of developing postoperative pulmonary Medications specially with his underlying COPD and restrictive lung physiology due to his morbid obesity. His FEV1 is order of 32% of predicted. Anticipate postoperative complications including atelectasis, pneumonias, respiratory failure requiring noninvasive or invasive ventilation. Continue Decadron Continue methadone for pain control Operative this patient Dilaudid for pain control Lovenox 40 mg subcu 40 prophylaxis We'll continue to follow
[2022-01-19] MEDS: ENOXAPARIN 40 MG/0.4 ML SYRINGE SQ SCH (15:43)
--- NOTE | 2022-01-19 16:12 | P.PN ---
Progress Note - Text Progress Note Date: 01/19/22 attempted to see patient earlier today he was an MRI we will visit him again today later MRI of the thoracic and lumbar spine is reviewed as well as CT of the thoracic spine again redemonstrated all these as the T10 fracture as well as lesion. This is hyperintense on T2 and hypointense on T1. it sits mostly in the anterior portion of the T10 body however this is likely the lytic portion the sclerotic portions posteriorly located within the pedicles and the posterior body as there is remodeling of the bone in this area causing expansile changes within the vertebral body which causes the stenosis within the T10 region. There is increased cord signal on T2 within the thoracic cord at T10 as well secondary to the compressive nature of this lesion.L1 lesion is less defined on MRI. There are no other lesions of the visualized cervical or thoracic spine above this or below. Patient does not area spondylosis in the lumbar spine with moderate to severe stenosis centrally as well as bilateral foraminal E from L2 through S1. There is disc desiccation degeneration height loss facet or pressure feeling mental hypertrophy contributing to these findings. No other fracture or dislocations noted at these times.
--- NOTE | 2022-01-19 16:21 | P.CONS ---
History of Present Illness - Reason for Consult Consult date: 01/19/22 spinal cord compression Requesting physician: Brendon Naranjo - Chief Complaint back pain, difficulty ambulating - History of Present Illness The patient is a 71-year-old male who is undergoing workup for a lung lesion, with suspicion of bone metastasis. However, he acutely presented with worsening lower back pain and difficulty with ambulation. He was found to have a spinal cord compression at the level of T10. The patient's oncologic history began this past October when he developed anterior chest wall pain. He attributed this to his dog jumping on him. He reportedly h ad a CT scan of the chest and [facility] ER on November 17, 2021. This study apparently revealed a 1.7 cm right lower lung nodule, and the patient was recommended to undergo further workup. He underwent a PET/CT also at [facility] on January 08. This revealed abnormal activity in the right lower lung nodule, as well as abnormal-appearing right hilar lymph nodes and several foci of bone metastases including the sternum, thoracic and lumbar spine. The patient was referred to Dr. Smith. Pulmonary function testing revealed an FEV1 of 32%. They were planning on undergoing biopsy, however the patient developed severe onset of lower back pain and presented to the ER. He presented to ER at [facility] on January 17 with severe back pain and inability to walk. A CT scan of the lumbar spine from January 18 revealed a destuctive of changes at the T10 vertebral body with 20% compression deformity felt to potentially be pathologic with retropulsion into the spinal canal. A subsequent CT scan of the thoracic spine and cervical spine redemonstrated the T10 lytic lesion, as well as showing an abnormal lesion in L1. MRI also revealed the T10 vertebral body lesion with 4 mm retropulsion into the spinal canal, and this was noted to cause cord edema at that level. There is a smaller, hypointense lesion at L1. The patient was subsequently started on dexamethasone as well as pain medications and placed on bedrest. He states that his pain is currently much improved, only one out of 10 with movement. He denies numbness or tingling of the lower extremities, but does state that the legs feel somewhat heavy. He has a Weaver catheter in place, and has not had any recent bowel movements. Of note, the patient has a history of chronic back pain and takes methadone. Review of Systems Constitutional: Denies chills, Denies fever Eyes: denies blurred vision Ears: deny: decreased hearing Ears, nose, mouth and throat: Denies headache Cardiovascular: Denies chest pain, Denies dyspnea on exertion Respiratory: Denies cough Gastrointestinal: Denies abdominal pain, Denies change in bowel habits Genitourinary: Denies dysuria Musculoskeletal: Reports as per HPI Integumentary: Denies rash Neurological: Denies ataxia, Denies confusion Psychiatric: Denies anxiety, Denies disorientation Past Medical History Additional Past Medical History / Comment(s): Patient previously had perforated sigmoid diverticulitis and had to establish colostomy which was reversed in August and has done well, back pain compression fx History of Any Multi-Drug Resistant Organisms: None Reported Past Surgical History: Appendectomy, Bowel Resection Additional Past Surgical History / Comment(s): colostomy reversed 11/19/13 Past Psychological History: No Psychological Hx Reported Past Alcohol Use History: None Reported, Occasional Past Drug Use History: None Reported Medications and Allergies Home Medications Medication Instructions Recorded Confirmed Type Furosemide [Lasix] 20 mg PO DAILY 01/18/22 01/18/22 History Methadone [Dolophine] 2.5 mg PO Q12H 01/18/22 01/18/22 History Potassium Chloride [Potassium 8 meq PO DAILY 01/18/22 01/18/22 History Chloride ER] oxyCODONE-APAP 7.5-325MG [Percocet 1 tab PO Q6HR PRN 01/18/22 01/18/22 History 7.5-325 mg] Allergies Allergy/AdvReac Type Severity Reaction Status Date / Time cephalexin monohydrate Allergy Itching Verified 01/18/22 07:33 [From Keflex] Physical Exam Vitals: Vital Signs Temp Pulse Resp BP Pulse Ox 01/19/22 13:55 98.3 F 99 18 127/78 93 L 01/19/22 11:48 93 16 01/19/22 05:00 98.0 F 93 16 154/88 93 L 01/18/22 21:00 98.0 F 109 H 16 144/85 93 L Intake and Output 01/19/22 01/19/22 01/19/22 06:59 14:59 22:59 Intake Total 0 Output Total 950 Balance -950 Intake: Oral 0 Output: Urine 950 Uretheral (Weaver) 950 Other: Voiding Method Indwelling Catheter - Constitutional General appearance: obese - EENT Eyes: EOMI, PERRLA ENT: hearing grossly normal - Neck Neck: no lymphadenopathy - Respiratory Respiratory: bilateral: CTA - Cardiovascular Rhythm: regular - Gastrointestinal General gastrointestinal: no distended, no tenderness - Integumentary Integumentary: no calor - Neurologic Neurologic: CNII-XII intact - Musculoskeletal Musculoskeletal: strength equal bilaterally (4/5 strength bilateral LE) - Psychiatric Psychiatric: A&O x's 3 Results CBC & Chem 7: 01/19/22 05:52 01/19/22 05:52 Labs: Abnormal Lab Results - Last 24 Hours (Table) 01/19/22 01/19/22 Range/Units 05:52 05:52 MCH 25.7 L (27.0-32.0) pg MCHC 30.5 L (32.0-37.0) g/dL RDW 16.3 H (11.5-14.5) % Lymphocytes # 0.66 L (0.90-5.00) X 10*3/uL Monocytes # 0.16 L (0.20-1.00) X 10*3/uL Eosinophils # 0 L (0.04-0.35) X 10*3/uL BUN/Creatinine Ratio 21.25 H (12.00-20.00) Ratio Glucose 128 H (70-110) mg/dL Calcium 8.4 L (8.7-10.3) mg/dL Assessment and Plan Assessment: The patient is a 71-year-old male who is undergoing workup for a lung lesion, with suspicion of bone metastasis. However, he acutely presented with worsening lower back pain and difficulty with ambulation. He was found to have a spinal cord compression at the level of T10. Plan: 1. Spinal cord compression: At the level of T10, there is appearance of spinal cord edema. This seems to be caused by pathologic retropulsion of the vertebral body into the spinal canal. Orthopedic spine surgery has evaluated the patient, and surgery is being mapped out for the next few days. In the interim, the patient has fairly good strength in the lower extremities. Continue dexamethasone, pain control as needed. I discussed with the patient this is likely a pathologic fracture, and we would likely recommend adjuvant radioth erapy following surgical resection. 2. Lung nodule - likely metastatic malignancy: Based on the patient's PET/CT, there is suspicion for lung cancer with bone metastases. MRI of the brain pending to complete workup. No biopsies have been performed yet, but if the patient moves forward with spinal surgery this will hopefully provide adequate pathology. I discussed with the patient that his imaging and presentation is suspicious for metastatic disease. Time with Patient: Greater than 30
[2022-01-19] MEDS: IPRATROPIUM-ALBUTEROL 3 ML NEB INHALATION SCH ×2 (20:04)
--- NOTE | 2022-01-19 21:15 | P.PN ---
Subjective Progress Note Date: 01/19/22 Principal diagnosis: Metastatic Malignancy affecting Cord Mr. López presented in October with worsening back pain to [facility] in which a work-up revealed lung mass and concern for osseous mets. Objective - Vital Signs Vital signs: Vital Signs Temp 98.0 F 01/19/22 05:00 Pulse 93 01/19/22 05:00 Resp 16 01/19/22 05:00 BP 154/88 01/19/22 05:00 Pulse Ox 93 L 01/19/22 05:00 FiO2 Intake & Output 01/18/22 01/19/22 01/19/22 18:59 06:59 18:59 Intake Total 900 0 Output Total 950 Balance 900 -950 Intake: Intake, IV Titration 900 Amount Sodium Chloride 0.9% 1, 900 000 ml @ 75 mls/hr IV . [id number] [facility] Rx#:[id number] Oral 0 Output: Urine 950 Uretheral (Weaver) 950 Other: Voiding Method Indwelling Catheter Indwelling Catheter - Constitutional General appearance: Present: cooperative, no acute distress - EENT Eyes: Present: EOMI ENT: Present: NA/AT - Neck Neck: Present: normal ROM - Respiratory Respiratory: right: wheezing - Cardiovascular Rhythm: regularly irregular - Gastrointestinal General gastrointestinal: Present: soft - Integumentary Integumentary: Present: pale - Musculoskeletal Musculoskeletal Comment(s): Lower ext weakness, sensation intact Musculoskeletal: Present: generalized weakness - Psychiatric Psychiatric: Present: A&O x's 3, appropriate affect - Labs CBC & Chem 7: 01/19/22 05:52 01/19/22 05:52 Labs: Abnormal Lab Results - Last 24 Hours (Table) 01/19/22 Range/Units 05:52 MCH 25.7 L (27.0-32.0) pg MCHC 30.5 L (32.0-37.0) g/dL RDW 16.3 H (11.5-14.5) % Lymphocytes # 0.66 L (0.90-5.00) X 10*3/uL Monocytes # 0.16 L (0.20-1.00) X 10*3/uL Eosinophils # 0 L (0.04-0.35) X 10*3/uL Assessment and Plan (1) Compression of spinal cord Narrative/Plan: Surgical intervention planned saturday and will obtain tissue for path at that time, discussed with Dr. Moreno Current Visit: Yes Status: Acute Code(s): G95.20 - UNSPECIFIED CORD COMPRESSION SNOMED Code(s): 87900144 (2) Lung mass Narrative/Plan: No tissue biopsy for definite diagnosis yet Current Visit: Yes Status: Acute Code(s): R91.8 - OTHER NONSPECIFIC ABNORMAL FINDING OF LUNG FIELD SNOMED Code(s): 959635008 (3) Lytic lesion of bone on x-ray Current Visit: Yes Status: Acute Code(s): M89.9 - DISORDER OF BONE, UNSPECIFIED SNOMED Code(s): 774633912 (4) Mechanical back pain Current Visit: Yes Status: Acute Code(s): M54.9 - DORSALGIA, UNSPECIFIED S NOMED Code(s): 025765052 Plan: Continue Dex, although lower to 4mg [id number] and add PPI Dr. Melgar: I have completed the full history and physical and devlloped the above impression and plan, agree with dictation, dictated as a scribe.
[2022-01-19] MEDS ORDERED: DEXAMETHASONE SOD PHOSPHATE 4 MG/ML 1 ML VIAL IVP PRN (21:16)
[2022-01-20] MEDS: METHADONE 5 MG TAB PO SCH ×2 (05:38→17:58)
[2022-01-20] MEDS: PANTOPRAZOLE 40 MG TABLET PO SCH (07:38)
[2022-01-20] MEDS: SODIUM CHLORIDE 0.9% 1,000 ML IV SCH ×2 (09:13→21:06)
[2022-01-20] MEDS: FUROSEMIDE 20 MG TAB PO SCH (09:17)
[2022-01-20] MEDS: ENOXAPARIN 40 MG/0.4 ML SYRINGE SQ SCH (09:17)
[2022-01-20] MEDS: CYCLOBENZAPRINE 10 MG TAB PO SCH ×3 (09:17→21:06)
[2022-01-20] MEDS: GABAPENTIN 300 MG CAP PO SCH ×3 (09:18→21:06)
[2022-01-20] MEDS: POTASSIUM CHLORIDE ER 10 MEQ TAB.ER.PRT PO SCH (09:18)
[2022-01-20] MEDS: METOPROLOL TARTRATE 12.5 MG TAB PO SCH ×2 (09:18→21:06)
--- NOTE | 2022-01-20 10:08 | P.PN ---
Subjective Progress Note Date: 01/20/22 Patient seen and examined this morning he is doing fairly well and in good spirits although he is very painful still. The patient has been unable to get up and move around secondary to the pain in his back. He has been laying in the common position has this is the most comfortable for him. He is unable to even sit up in bed due to the pain. He states the pain in his legs has somewhat subsided since starting the medication and steroids. He still is near full strength in his lower extremities and does not complain of any weakness at this time or increased symptoms. He denies any bowel or bladder issues he does have a Weaver in place due to his nonambulatory status at this time. He denies any c onstipation or other issues. He denies any numbness or tingling in his genital region. Objective - Vital Signs Vital signs: Vital Signs Temp 97.6 F 01/20/22 05:00 Pulse 92 01/20/22 09:16 Resp 16 01/20/22 05:00 BP 137/82 01/20/22 09:16 Pulse Ox 93 L 01/20/22 09:16 FiO2 Intake & Output 01/19/22 01/20/22 01/20/22 18:59 06:59 18:59 Intake Total 1360 Output Total 1500 800 Balance -140 -800 Intake: Intake, IV Titration 900 Amount Sodium Chloride 0.9% 1, 900 000 ml @ 75 mls/hr IV . [id number] [facility] Rx#:[id number] Oral 460 Output: Urine 1500 800 Other: Voiding Method Indwelling Catheter Indwelling Catheter - Exam Exam is repeated today and no real changes. No pathologic reflexes no decrease in sensation or strength. Still with good tone and control. PHYSICAL EXAMINATION: Vitals: Stable at this time General: Awake, alert, appropriate for age, in no acute distress. HEENT: No unusual neck masses around region of lateral neck triangle, thyroid, supraclavicular groove. Extremities: Skin warm and dry without no acute lesions, coloration, temperature, skin intact, no tenderness or erythema. Integument: Hairy patches: Absent Dorsal skin dimples: Absent Cafe au lait spots: Absent Surgical incisions: no back incisions noted Palpation: Please see Pain drawing on Intake sheet for further detail. (Tenderness = T, Nontender = NT, Swelling = S, Ecchymosis = E) Findings on Midline and paraspinal palpation and percussion: Cervical: NT Thoracic: midline and paraspinal tenderness to palpation Lumbar: midline tenderness to palpation as well as paraspinal tenderness to palpation Sacral: NT Special findings: [] POSTURAL and MUSCULO-SKELETAL EVALUATION: Neck ROM: [Unrestricted in six directions] Lumbar ROM: restricted at this time as the patient is somewhat bedridden and cannot move due to the pain Shoulder ROM: Symmetric in abduction, ER/IR Hip ROM: Symmetric in abduction, adduction, ER/IR Knee ROM: Symmetric and intact in Flexion / extension Hands: Normal appearing structure L and R Feet: Normal appearing structure L and R VASCULAR STATUS : Wrist Pulses: [2/4 bilateral radial and ulnar] Pedal Pulses: [2/4 bilateral DP and PT] Color: mottling lower extremities anterior tibial portion, vasculopath Edema: 2+ pitting edema bilateral lower extremities NEUROLOGIC EXAMINATION: Mental Status: Awake and alert, fully oriented, with normal attention, concentration and memory, and fluent, appropriate speech. Cranial Nerves: I: Olfactory not tested. II: Visual acuity normal, no visual field deficit noted with confrontation. III,IV: Normal pupillary reflexes & intact extraocular movements without nystagmus. V,: Intact symmetrical facial sensation. VII: Intact symmetrical facial motor movement VIII: Hearing intact. IX,X: Intact gag, swallow, & normal voice. XI: Sternocleidomastoid, trapezius function intact. XII: Tongue midline with normal movements. Special Tests: Cubital percussion test: Absent Bilateral Sarah-Tinel sign - Carpal region: Absent Bilateral Straight Leg Raising: Absent Bilateral Motor Exam (0-5/5, N/T) STRENGTH UPPER EXTREMITY Shoulder Abd (Not part of PAUL Motor score): RIGHT [5] LEFT [5] Elbow Flexors: RIGHT [5] LEFT [5] Elbow Extensor: RIGHT [5] LEFT [5] Wrrist Dorsiflexors: RIGHT [5] LEFT [5] Finger Abductor: RIGHT [5] LEFT [5] Programmer Developer: RIGHT [5] LEFT [5] LOWER EXTREMITY Hip Flexor (Not part of PAUL Motor Score): RIGHT 4 LEFT 4 this is secondary to pain at this time Knee Flexor: RIGHT 4 LEFT 4 also secondary to pain and difficult to do due to the pain that he is in his back Knee Extensor: RIGHT 4 LEFT 4 secondary to pain Ankle Dorsiflexion: RIGHT [5] LEFT [5] Ankle Plantarflexion: RIGHT [5] LEFT [5] EHL: RIGHT [5] LEFT [5] FHL: RIGHT [5] LEFT [5] PAUL Motor Score: RIGHT [50]/50 LEFT [50]/50 REFLEXES Biecp: RIGHT [2] LEFT [2] Tricep: RIGHT [2] LEFT [2] Brachioradialis: RIGHT [2] LEFT [2] Patellar: RIGHT [2] LEFT [2] Achilles: RIGHT [2] LEFT [2] Pathological Reflexes Barlow's: RIGHT [Absent] LEFT [Absent] Babinski: RIGHT [Absent] LEFT [Absent] Clonus: RIGHT [None] LEFT [None] SENSORY Joint Position: [Intact bilaterally] Vibration [Intact bilaterally] Pain and LT sense [Intact C5-T1 and L2-S1] Dermatomal deficit [None] Gait and Functional Evaluation: nonambulatory at this time due to pain - Constitutional General appearance: Present: cooperative - EENT Eyes: Present: PERRLA - Neurologic Neurologic: Present: CNII-XII intact - Psychiatric Psychiatric: Present: A&O x's 3 - Allied health notes Allied health notes reviewed: PT - Labs CBC & Chem 7: 01/19/22 05:52 01/19/22 05:52 - Imaging and Cardiology MRIs and CTs are reviewed again these are noted in previous textile. T10 lesion evaluated again this seems to be stabilized biopsy and likely resected Assessment and Plan Assessment: 71 yo male mid/low back pain, severe Likely pathological fracture T10 AO type B2/A4 burst LE radiculopathy b/l LE weakness b/l L1 lytic foci Left Lung lobe nodule complex medical patient Plan: -Appreciate consumer services consultant and team management -Agree with brain MRI and C-spine MRI for staging -MRI and CT reviewed -Continue Decadron -Continue Gabapentin 300mg TID for nerve pain -Continue Flexeril 10 mg TID for muscle spasms -Cont with oral and IV pain meds as needed -Cont with bed rest. Agree with TLSO brace. Patient not tolerating fitting of TLSO will likely tolerate better after surgery -OK for HOB to comfort for patient -Plan for surgical stabilization T7 to L1-2 on Saturday01/23/22. Discussed this at length with the patient again and he is on board we will plan on Saturday for surgical stabilization decompression biopsy.
[2022-01-20] MEDS: IPRATROPIUM-ALBUTEROL 3 ML NEB INHALATION SCH ×4 (10:26→19:51)
--- NOTE | 2022-01-20 11:27 | CA ---
Transthoracic Echo Report Name: Yamil López Age: 71 Gender: M : 1950 Exam Date: 01/20/2022 10:30 Exam Location: [facility] Ht (in): 71 Wt (lb): 320 Ordering Physician: Lilly Rodriguez Attending/Referring Phys: Senior Lead Java Developer Daniella Barclay RDCS Procedure CPT: Indications: heart murmur, pre-op Cardiac Hx: Technical Quality: Fair Contrast 1: Total Dose (mL): Contrast 2: Total Dose (mL): MEASUREMENTS (Male / Female) Normal Values 2D ECHO LV Diastolic Diameter PLAX 3.8 cm 4.2 - 5.9 / 3.9 - 5.3 cm LV Systolic Diameter PLAX 2.1 cm IVS Diastolic Thickness 1.2 cm 0.6 - 1.0 / 0.6 - 0.9 cm LVPW Diastolic Thickness 1.2 cm 0.6 - 1.0 / 0.6 - 0.9 cm LV Relative Wall Thickness 0.7 RV Internal Dim ED PLAX 3.6 cm M-MODE Aortic Root Diameter MM 3.6 cm LA Systolic Diameter MM 3.4 cm LA Ao Ratio MM 0.9 MV E Point Septal Separation 0.6 cm AV Cusp Separation MM 2.5 cm DOPPLER AV Peak Velocity 157.7 cm/s AV Peak Gradient 10.0 mmHg MV Area PHT 4.4 cm??? MR Peak Velocity 115.4 cm/s MR Peak Gradient 5.3 mmHg Mitral E Point Velocity 81.1 cm/s Mitral A Point Velocity 89.2 cm/s Mitral E to A Ratio 0.9 MV Deceleration Time 172.7 ms TR Peak Velocity 150.5 cm/s TR Peak Gradient 9.1 mmHg Right Ventricular Systolic Press 13.4 mmHg FINDINGS Left Ventricle left ventricular cavity size normal. ildly increased septal wall thickness. Left ventricular ejection fraction is estimated at 55-60_%. Right Ventricle Normal right ventricular size and function. Right Atrium The right atrium is normal in size. Left Atrium The left atrium is normal in size. Mitral Valve Structurally normal mitral valve without significant stenosis or prolapse. There is MILD mitral regurgitation. Aortic Valve Structurally normal aortic valve without significant sclerosis or stenosis. There is no aortic regurgitation. Tricuspid Valve Structurally normal tricuspid valve without significant stenosis. Pulmonary artery systolic pressure is normal. Mild tricuspid regurgitation. Pulmonic Valve Structurally normal pulmonic valve without significant stenosis. There is no pulmonic regurgitation. Pericardium Normal pericardium without effusion. Aorta Normal aortic root dimension. CONCLUSIONS Normal left ventricular size and systolic function Mild tricuspid regurgitation and mild mitral regurgitation Previewed by: Dr. Gabe Velásquez MD (Electronically Signed) Final Date: 20 Jan 2022 11:26
--- NOTE | 2022-01-20 12:00 | P.PN ---
Subjective Progress Note Date: 01/20/22 Patient is seen resting comfortably in bed today watching TV. With no signs of acute distress or shortness of breath. We were initially consulted for hypertension and tachycardia. Patient is tolerating beta ekllen and will continue. Heart rate is better controlled and blood pressure remains controlle d. Patient underwent an echocardiogram which shows a normal LV function and systolic function with mild tricuspid regurgitation and mild mitral regurgitation. Patient is awaiting surgery on Saturday. Objective - Vital Signs Vital signs: Vital Signs Temp 97.6 F 01/20/22 05:00 Pulse 92 01/20/22 09:16 Resp 16 01/20/22 05:00 BP 137/82 01/20/22 09:16 Pulse Ox 93 L 01/20/22 09:16 FiO2 Intake & Output 01/19/22 01/20/22 01/20/22 18:59 06:59 18:59 Intake Total 1360 Output Total 1500 800 Balance -140 -800 Intake: Intake, IV Titration 900 Amount Sodium Chloride 0.9% 1, 900 000 ml @ 75 mls/hr IV . [id number] [facility] Rx#:[id number] Oral 460 Output: Urine 1500 800 Other: Voiding Method Indwelling Catheter Indwelling Catheter Indwelling Catheter - Exam PHYSICAL EXAM: VITAL SIGNS: Reviewed. GENERAL: Well-developed in no acute distress. HEENT: Head is normocephalic. Pupils are equal, round. Sclerae anicteric. Mucous membranes of the mouth are moist. NECK: Supple. No JVD or thyromegaly RESPIRATORY: Respirations even and unlabored. Lungs diminished to auscultation bilaterally. CARDIO: Regular rate and rhythm. S1 and S2 heard. No murmur or gallops. EXTREMITIES: Normal range of motion. No clubbing or cyanosis. Peripheral pulses intact. Negative for bilateral lower extremity edema NEURO: Orientated to person, time, mood is appropriate - Labs CBC & Chem 7: 01/19/22 05:52 01/19/22 05:52 Assessment and Plan Assessment: destructive lesion involving T10. Possible malignant lesion. morbid obesity hypertension sinus tachycardia Plan: Echocardiogram reviewed patient is stable to undergo surgical stabilization of the spine. Continue with metoprolol mg daily Echocardiogram reviewed Further recommendations based on clinical course The above impression and plan of care have been discussed and directed by the signing physician. Lilly Rodriguez, nurse practitioner, acting as scribe for signing physician.
--- NOTE | 2022-01-20 13:11 | P.PN ---
Subjective Progress Note Date: 01/20/22 71-year-old male patient referred to me for a pulmonary nodule with a concern of underlying malignancy. This is a morbidly obese white male patient who is quite debilitated due to chronic back problems and arthritis. The patient has been living independently and [place] and he has been very limited in terms of his exercise capacity due to chronic back pain. Currently is taking methadone as maintenance for chronic back pain and takes Preston on an as-needed basis. He moves around with help of a walker. Despite his limitations due to his obesity and his chronic back pain, the patient has been able to live independently. Denies having any respiratory difficulties. No reported cough sputum production chest tightness or wheezing. No hemoptysis. Recently, he had his dog jump on his chest which she thought caused some injury to his thoracic cage. He was complaining of pain and further investigation was done including a a CT that was done on 11/17/2021 that showed a lobulated spiculated 1.7 cm nodule in the right lung base, 7 mm pulmonary nodule in the right lower lobe and a 6 mm nodule in the right minor fissure.there was also evidence of centrilobular emphysema in the upper lobes and dependent atelectatic changes. This was followed up by a PET/CT that was done on 01/08/2022 and the PET scan showed increased FDG activity within the 1.7 cm nodule in the right lung base with an SUV of 9.54. In addition, there was a right hilar lymph node with a maximum SUV of 23. No abdominal metabolic activity within the abdomen. No activity within the pelvis. In terms of the bony structures, there was a metastatic deposit in the sternum with a maximum SUV of 16.06 and another T1 vertebral body lesion on the left and some metastatic deposits extending from T10 through L4 vertebral bodies. The findings were compatible with metastatic lung cancer and the patient was referred to me accordingly. There was some vague activity in the right parotid gland also. The patient is an ex-smoker. He has worked for the automotive industry in the past. this patient is morbidly obese. Denies having obstructive sleep apnea. He has chronic venous stasis and chronic edema lower extremities along with some chroni c skin ulceration the legs for which she is doing wound care. No altered mentation. No headaches. He has exertional dyspnea. No dyspnea at rest. No angina. No palpitation. No cardiac arrhythmias. No recurrent pneumonias. No recurrent bronchitis and no history of any DVT or pulmonary embolism. . . No reported history of change in his voice quality, hoarseness, or hemoptysis. The patient doesn't utilize any form of respiratory medications or inhalers. He been on Lasix regarding his chronic lower extremity edema. I saw this patient my office on 01/17/2022 and I was planning to proceed with a lung biopsy. After the patient left my office, the patient became weak in the lower extremities to the point where he collapsed and he was unable to walk. The patient's stated that he had also some chronic back pain and was progressively getting more weak. He also reported some tingling in lower ext remity is bilaterally. He had good strength in his upper extremities. No loss in the bowel and bladder control. Based on that, he presented himself to the MRSA problem and the patient's underwent further investigation. CAT scan of the lumbar spine was done and it showed facet arthrosis at the level of L4-L5 and L5-S1 which is moderate to severe in nature along with lumbar lordosis. The level of T10, there is a fracture which has the features of a pathologic fracture and there is a lytic bony destruction noted anteriorly within the vertebral body that tracks down into the pedicles. There is also retropulsion of the posterior body wall into the spinal canal. The patient was seen by spine surgery. There was a concern for the posterior column involvement and potentially stability of the spine. There was also an anterior largest synthetic changes of the adjacent segments. There was also an L1 vertebral body lesion and other lytic foci at the level of T12. Based on all this, the patient is being considered for surgical stabilization of the spine. This may be an opportunity also to establish tissue diagnosis of this patient. For now, the patient on Decadron. He is resting, comfortably in bed. No Tay shortness of breath. Note that his FEV1 was also low in the spirometry. In my office showed a combination of obstructive and restrictive physiology. His FEV1 was in order of 32% of predicted. 01/20/2022, the patient is comfortable. No worsening shortness of breath. The patient is going to undergo an MRI of the brain. Echocardiogram showed normal LV function. The tentative plan is to proceed with surgery by next week. Objective - Vital Signs Vital signs: Vital Signs Temp 97.9 F 01/20/22 13:00 Pulse 86 01/20/22 13:00 Resp 16 01/20/22 13:00 BP 119/82 01/20/22 13:00 Pulse Ox 94 L 01/20/22 13:00 FiO2 Intake & Output 01/19/22 01/20/22 01/20/22 18:59 06:59 18:59 Intake Total 1360 Output Total 1500 800 700 Balance -140 -800 -700 Intake: Intake, IV Titration 900 Amount Sodium Chloride 0.9% 1, 900 000 ml @ 75 mls/hr IV . [id number] [facility] Rx#:[id number] Oral 460 Output: Urine 1500 800 700 Uretheral (Weaver) 700 Other: Voiding Method Indwelling Catheter Indwelling Catheter Indwelling Catheter - Exam GENERAL: Well-developed in no acute distress. Head exam was generally normal. There was no scleral icterus or corneal arcus. Mucous membranes were moist. HEENT: Head is normocephalic. Pupils are equal, round. Sclerae anicteric. Mucous membranes of the mouth are moist. NECK: Supple. No JVD or thyromegaly RESPIRATORY: Respirations even and unlabored. Lungs diminished to auscultation bilaterally. CARDIO: Regular rate and rhythm. S1 and S2 heard. No murmur or gallops. Abdominal exam revealed normal bowel sounds. The abdomen was soft, non-tender, and without masses, organomegaly, or appreciable enlargement of the abdominal aorta. EXTREMITIES: Normal range of motion. No clubbing or cyanosis. Peripheral pulses intact. Negative for bilateral lower extremity edema NEURO: Orientated to person, time, mood is appropriate Examination of the skin revealed no evidence of significant rashes, suspicious appearing nevi or other concerning lesions. - Labs CBC & Chem 7: 01/19/22 05:52 01/19/22 05:52 Assessment and Plan Plan: Acute on chronic lower back pain in addition to suspected pathologic fracture of the level of T10 with unstable spine. The patient is weakness and radiculopathy bilaterally. Patient also has metastatic foci the level of L1 spine. Patient is undergoing an MRI of the spine Lung mass/Nodule of lung - I reviewed the CAT scan of the chest and the PET scan. In summary, the patient has a 1.7 cm right lower lobe pulmonary nodule with increased FDG an SUV of 9.54 in addition to a right hilar lymph node with an SUV of 23. The patient also has intense uptake within the sternum and SUV of 16.06 and the findings are highly suspicious for metastatic lung cancer. The activity within the thoracic and lumbar spine was also noted.. For now, there is a suspicion that the patient has metastatic lung cancer and needs to be further investigated. He was made aware. He is known to have COPD. Is an ex- smoker. Chronic obstructive lung disease - the spirometry shows a combination of obstructive and restrictive pulmonary physiology. FEV1 is no other of 32% of predicted at baseline. The patient does not use any form of respiratory m edications or inhalers and his resting pulse ox is 96%. J44.9: Chronic obstructive pulmonary disease, unspecified Morbid obesity E66.01: Morbid (severe) obesity due to excess calories Stasis dermatitis of lower limb due to chronic peripheral venous hypertension - with secondary ulcerations I87.399: Chronic venous hypertension (idiopathic) with other complications of unspecified lower extremity Chronic back pain - with significant limitation of mobility and the patient is moving around without a walker and wheelchair. He is on methadone and Preston on an aggressive basis for breakthrough pain. Plan MRI of the spine Planning for surgery by next week Continue DuoNeb neb last treatment [id number] Continue using the spirometer The patient is going to undergo a spine surgery for stabilization and this will be an opportunity to establish a tissue diagnosis. The patient seeking cardiac clearance. Follow pulmonary standpoint, the patient carries a high risk of developing postoperative pulmonary complications specially with his underlying COPD and restrictive lung physiology due to his morbid obesity. His FEV1 is order of 32% of predicted. Anticipate postoperative complications including atelectasis, pneumonias, respiratory failure requiring noninvasive or invasive ventilation. Continue Decadron Continue methadone for pain control Operative this patient Dilaudid for pain control Lovenox 40 mg subcu 40 prophylaxis We'll continue to follow
--- NOTE | 2022-01-20 14:00 | MR ---
EXAMINATION TYPE: MR brain/cspine wo/w DATE OF EXAM: 01/20/2022 COMPARISON: None HISTORY: Metastatic cancer. CONTRAST: Performed utilizing 15 mL intravenous Gadavist gadolinium contrast. TECHNIQUE: Multiplanar, multiecho imaging on a 3.0 Merari magnet is performed through the brain. Stud y is performed within 24 hours of arrival to the hospital. The craniovertebral junction is normal. The pituitary is normal. Diffusion-weighted imaging is performed. No abnormal hyperintensity is present to suggest an acute i ntracranial infarct or acute ischemic change. There is periventricular white matter hyperintensities which are nonspecific but can be related to mi crovascular ischemic change. There are a few additional subcortical white matter changes which are no nspecific and can be related to microvascular ischemic change. Differential diagnosis does include me tastasis, migraine headaches, multiple sclerosis. No enhancement is evident within these regions. Ventricles and sulci are appropriate for the patient age. IMPRESSIONS: 1. White matter changes in the periventricular region more likely related to chronic microvascular is chemic change. No abnormal enhancement or other changes to suggest metastatic disease is identified. EXAMINATION TYPE: MR brain/cspine wo/w DATE OF EXAM: 01/20/2022 COMPARISON: None HISTORY: Metastatic cancer. CONTRAST: Performed utilizing 15 mL intravenous Gadavist gadolinium contrast. TECHNIQUE: Multiplanar multiecho imaging on a 3.0 Merari magnet is performed through the cervical spin e. FINDINGS: The craniovertebral junction is normal. Vertebral body alignment is normal. C7-T1: No focal disc herniation or significant disc bulge is evident. No spinal canal stenosis or n eural foraminal stenosis is present. C6-7: Based disc bulge is moderate anterior thecal sac compression. No cord contact is evident. No sp inal canal stenosis is present.. C5-6:Disc space narrowing is present. Broad-based disc bulge has moderate anterior thecal sac heron mariah. This comes in close approximation of the spinal cord. Spinal canal narrowing may be present. C4-5: No focal disc herniation or significant disc bulge is evident. No spinal canal stenosis or florina ral foraminal stenosis is present. C3-4: No focal disc herniation or significant disc bulge is evident. No spinal canal stenosis or florina ral foraminal stenosis is present. C2-3: No focal disc herniation or significant disc bulge is evident. No spinal canal stenosis or florina ral foraminal stenosis is present. Signal through the cervical spine appears normal. No abnormal enhancement is evident. Patient's repor miriam T1 metastatic lesion is not well appreciated on this cervical spine study. IMPRESSIONS: 1. Degenerative disc changes with disc bulging causing moderate anterior thecal sac compression C6-7 and to a lesser degree C5-6. Some cord contact and flattening is present at C6-7. 2. No suspicious changes to suggest metastatic disease.
--- NOTE | 2022-01-20 23:55 | P.PN ---
Subjective Progress Note Date: 01/19/22 Patient is a 71-year-old male with a known history of bowel resection and chronic back pain presents to ER with complaints of severe intractable back pain and almost fell to the ground because of severe back pain. Patient was found to have a destructive lesion at the T10 and also newly diagnosed pulmonary nodule with possible metastasis. 01/19/2022. Patient is currently lying in the bed. Still complains of back pain. Denies any complaints of numbness or tingling of the lower extremities. No bowel or bladder incontinence. Patient is on Weaver catheter currently. No fever no chills. No cough or sputum production. No headache or dizziness or lightheadedness. continued on dexamethasone 6 mg every 6 hourly. Also on Flexeril and Dilaudid and also on methadone 2.5 mg every 12. Laboratory showed WBC 6.6 hemoglobin 14.0 and platelets 192 Sodium 139 potassium 4.9 chloride 102 bicarb is 25.8 and BUN 17.0 and creatinine 0.8 and calcium 8.4. Pulmonary and orthopedic surgery is on board. Thoracic and lumbar spine CT showed some cord edema due to expansile T10 lesion causing posterior T10 vertebral body margin bulging. Lesion at the L1 level is less well impressive without spinal canal involvement. A 3 mm round intradural extramedullary suspected enhancing lesion superior L4 level is nonspecific but concerning for possible drop metastatic focus. Current medications reviewed Objective - Vital Signs Vital signs: Vital Signs Temp 98.3 F 01/19/22 19:51 Pulse 76 01/19/22 20:14 Resp 18 01/19/22 20:06 BP 124/75 01/19/22 19:51 Pulse Ox 92 L 01/19/22 19:51 FiO2 Intake & Output 01/19/22 01/19/22 01/20/22 06:59 18:59 06:59 Intake Total 0 1360 Output Total 950 1500 Balance -950 -140 Intake: Intake, IV Titration 900 Amount Sodium Chloride 0.9% 1, 900 000 ml @ 75 mls/hr IV . [id number] [facility] Rx#:[id number] Oral 0 460 Output: Urine 950 1500 Uretheral (Weaver) 950 Other: Voiding Method Indwelling Catheter Indwelling Catheter Indwelling Catheter - Exam PHYSICAL EXAMINATION: Patient is lying in the bed comfortably, no acute distress, awake alert and oriented.. HEENT: Normocephalic. Neck is supple. Pupils reactive. Nostrils clear. Oral cavity is moist. Neck reveals no JVD, carotid bruits, or thyromegaly. CHEST EXAMINATION: Trachea is central. Symmetrical expansion. Bibasilar diminished sounds. Mild expiratory wheeze.. CARDIAC: Normal S1, S2 with no gallops. No murmurs ABDOMEN: Soft. Bowel sounds normal. No organomegaly. No abdominal bruits. Extremities: reveal no edema. No clubbing or cyanosis Neurologically awake, alert, oriented x3 with well-coordinated movements. No focal deficits noted Skin: No rash or skin lesions. Psychiatric: Cooperative. Nonsuicidal Musculoskeletal: No joint swelling or deformity. Normal range of motion. - Labs CBC & Chem 7: 01/19/22 05:52 01/19/22 05:52 Labs: Abnormal Lab Results - Last 24 Hours (Table) 01/19/22 01/19/22 Range/Units 05:52 05:52 MCH 25.7 L (27.0-32.0) pg MCHC 30.5 L (32.0-37.0) g/dL RDW 16.3 H (11.5-14.5) % Lymphocytes # 0.66 L (0.90-5.00) X 10*3/uL Monocytes # 0.16 L (0.20-1.00) X 10*3/uL Eosinophils # 0 L (0.04-0.35) X 10*3/uL BUN/Creatinine Ratio 21.25 H (12.00-20.00) Ratio Glucose 128 H (70-110) mg/dL Calcium 8.4 L (8.7-10.3) mg/dL Assessment and Plan Assessment: Acute on chronic low back pain with T10 compression fracture with possible metastatic lesion. Newly diagnosed lung mass/nodule. Pulmonary primary. Patient had PET scan and CT chest recently. Chronic back pain on methadone at home. Morbid obesity BMI 42.1 DVT prophylaxis. Plan: Patient will be continued on pain management with Dilaudid and methadone and Percocet. Continue with duo nebs and incentive spirometry. Continue with dexamethasone 6 mg every 6 hourly. Pulmonary and orthopedic surgery is on board. Continue to follow closely. Discussed with the patient at bedside in detail. Time with Patient: Greater than 30
--- NOTE | 2022-01-20 23:58 | P.PN ---
Subjective Progress Note Date: 01/20/22 Patient is a 71-year-old male with a known history of bowel resection and chronic back pain presents to ER with complaints of severe intractable back pain and almost fell to the ground because of severe back pain. Patient was found to have a destructive lesion at the T10 and also newly diagnosed pulmonary nodule with possible metastasis. 01/19/2022. Patient is currently lying in the bed. Still complains of back pain. Denies any complaints of numbness or tingling of the lower extremities. No bowel or bladder incontinence. Patient is on Weaver catheter currently. No fever no chills. No cough or sputum production. No headache or dizziness or lightheadedness. continued on dexamethasone 6 mg every 6 hourly. Also on Flexeril and Dilaudid and also on methadone 2.5 mg every 12. Laboratory showed WBC 6.6 hemoglobin 14.0 and platelets 192 Sodium 139 potassium 4.9 chloride 102 bicarb is 25.8 and BUN 17.0 and creatinine 0.8 and calcium 8.4. Pulmonary and orthopedic surgery is on board. Thoracic and lumbar spine CT showed some cord edema due to expansile T10 lesion causing posterior T10 vertebral body margin bulging. Lesion at the L1 level is less well impressive without spinal canal involvement. A 3 mm round intradural extramedullary suspected enhancing lesion superior L4 level is nonspecific but concerning for possible drop metastatic focus. 01/20/2022. Patient is currently lying in the bed. Awake alert and oriented x3. Currently on room air. No complaints of chest pain. Pain is fairly controlled with medications. Patient is scheduled for orthopedic surgery. 2D echocardiogram showed normal left ventricular size and systolic function. Mild TR and mild MR. Patient is undergoing CT head and cervical spine. Otherwise patient denies any cough or sputum production. No fever no chills. No nausea vomiting abdominal pain or diarrhea. Current medications reviewed Objective - Vital Signs Vital signs: Vital Signs Temp 98.3 F 01/20/22 20:52 Pulse 92 01/20/22 20:52 Resp 16 01/20/22 20:52 BP 134/92 01/20/22 20:52 Pulse Ox 91 L 01/20/22 20:52 FiO2 Intake & Output 01/20/22 01/20/22 01/21/22 06:59 18:59 06:59 Output Total 800 2300 Balance -800 -2300 Output: Urine 800 2300 Uretheral (Weaver) 1700 Other: Voiding Method Indwelling Catheter Indwelling Catheter Indwelling Catheter # Voids 3 - Exam PHYSICAL EXAMINATION: Patient is lying in the bed comfortably, no acute distress, awake alert and demetri ented.. HEENT: Normocephalic. Neck is supple. Pupils reactive. Nostrils clear. Oral cavity is moist. Neck reveals no JVD, carotid bruits, or thyromegaly. CHEST EXAMINATION: Trachea is central. Symmetrical expansion. Bibasilar diminished sounds. Mild expiratory wheeze.. CARDIAC: Normal S1, S2 with no gallops. No murmurs ABDOMEN: Soft. Bowel sounds normal. No organomegaly. No abdominal bruits. Extremities: reveal no edema. No clubbing or cyanosis Neurologically awake, alert, oriented x3 with well-coordinated movements. No focal deficits noted Skin: No rash or skin lesions. Psychiatric: Cooperative. Nonsuicidal Musculoskeletal: No joint swelling or deformity. Normal range of motion. - Labs CBC & Chem 7: 01/19/22 05:52 01/19/22 05:52 Assessment and Plan Assessment: Acute on chronic low back pain with T10 compression fracture with possible metastatic lesion. Newly diagnosed lung mass/nodule. possible Pulmonary primary. Patient had PET scan and CT chest recently. Chronic back pain on methadone at home. Morbid obesity BMI 42.1 DVT prophylaxis. Plan: Patient will be continued on pain management with Dilaudid and methadone and Percocet. Continue with duo nebs and incentive spirometry. Continue with dexamethasone 6 mg every 6 hourly.Plan for orthopedic surgery tentatively on Saturday. Pulmonary and orthopedic surgery is on board. Continue to follow closely. Discussed with the patient at bedside in detail. Time with Patient: Greater than 30
[2022-01-21] MEDS: METHADONE 5 MG TAB PO SCH ×2 (05:30→17:07)
[2022-01-21] MEDS: POTASSIUM CHLORIDE ER 10 MEQ TAB.ER.PRT PO SCH (07:13)
[2022-01-21] MEDS: METOPROLOL TARTRATE 12.5 MG TAB PO SCH (07:13)
[2022-01-21] MEDS: GABAPENTIN 300 MG CAP PO SCH ×3 (07:13→21:25)
[2022-01-21] MEDS: FUROSEMIDE 20 MG TAB PO SCH (07:13)
[2022-01-21] MEDS: CYCLOBENZAPRINE 10 MG TAB PO SCH ×3 (07:13→21:25)
[2022-01-21] MEDS: PANTOPRAZOLE 40 MG TABLET PO SCH (07:13)
[2022-01-21] MEDS: oxyCODONE-APAP 7.5-325MG 1 EACH TAB PO PRN (07:14)
[2022-01-21] MEDS: ENOXAPARIN 40 MG/0.4 ML SYRINGE SQ SCH (07:14)
[2022-01-21] MEDS: IPRATROPIUM-ALBUTEROL 3 ML NEB INHALATION SCH ×4 (07:25→20:04)
--- NOTE | 2022-01-21 08:27 | P.PN ---
Subjective Progress Note Date: 01/21/22 Principal diagnosis: Back Pain Patient seen and examined at bedside. Patient states that his pain is better controlled today. Patient is lying supine in bed, head of bed slightly elevated. Encouraged patient to continue with bed exercises. Lung sounds are slightly diminished, ordered incentive spirometer and discussed this with patient he verbalizes understanding. Patient denies any numbness or tingling to bilateral groin or bilateral lower extremities. Weaver catheter remained patent. Patient states he is passing gas, no bowel movement. Patient has been afebrile, denies nausea/vomiting, or chest pain. Objective - Vital Signs Vital signs: Vital Signs Temp 98.5 F 01/21/22 07:11 Pulse 76 01/21/22 07:39 Resp 18 01/21/22 07:11 BP 148/78 01/21/22 07:11 Pulse Ox 92 L 01/21/22 07:11 FiO2 Intake & Output 01/20/22 01/21/22 01/21/22 18:59 06:59 18:59 Intake Total 590 Output Total 2300 Balance -2300 590 Intake: Oral 590 Output: Urine 2300 Uretheral (Weaver) 1700 Other: Voiding Method Indwelling Catheter Indwelling Catheter Indwelling Catheter # Voids 3 - Exam Physical Examination General: The patient is awake and alert, in no acute distress Skin: Skin is warm and dry with no obvious rashes or lesions. Hairy patches absent, no dorsal skin dimples, no cafe au lait spots, and no surgical incisions. Eye: Pupils are equal, round and reactive to light, extra-ocular movements are intact; there is normal conjunctiva bilaterally. Neck: The neck is supple, there is no tenderness and ROM intact. Cardiovascular: There is a regular rate and rhythm. No murmur, rub or gallop is appreciated. Respiratory: Lungs are diminished to auscultation, respirations are non- labored, breath sounds are equal, ordered incentive spirometer Gastrointestinal: Soft, non-distended, non-tender abdomen . Back: There is no tenderness to palpation in the midline, paralumbar, parathoracic or buttocks region. There is no obvious deformity . Musculoskeletal: Lumbar ROM limited secondary to pain, UPPER EXTREMITY Shoulder abduction 5/5, elbow flexors 5/5, wrist dorsiflexors 5/5. finger abductor 5/5, personal caregiver 5/5, LOWER EXTREMITY Hip Flexor (Not part of PAUL Motor Score): RIGHT 4 LEFT 4 this is secondary to pain at this time Knee Flexor: RIGHT 4 LEFT 4 also secondary to pain and difficult to do due to the pain that he is in his back Knee Extensor: RIGHT 4 LEFT 4 secondary to pain Ankle Dorsiflexion: RIGHT [5] LEFT [5] Ankle Plantarflexion: RIGHT [5] LEFT [5] EHL: RIGHT [5] LEFT [5] FHL: RIGHT [5] LEFT [5] Neurological: CN 2-12 intact. There are no obvious motor or sensory deficits. Movement and coordination equal and intact. Sensory exam to light touch intact C5-T1 and intact from L2-S1. Reflexes 2/4 in bilateral upper and lower extremities. Negative Hoffmans, babinski, and clonus signs. Psychiatric: Cooperative, appropriate mood & affect, normal judgment. - Labs CBC & Chem 7: 01/19/22 05:52 01/19/22 05:52 Assessment and Plan Assessment: Mid/low back pain, severe Likely pathological fracture T10 AO type B2/A4 burst LE radiculopathy b/l LE weakness b/l L1 lytic foci Left Lung lobe nodule complex medical patient Plan: Plan: -Appreciate client development consultant and team management. -Activity: as tolerated -Pain control: Adequate at this time -Meds: reviewed -GI ppx: senna, Miralax -Maintain Weaver catheter -DVT PPX: TEDS, SCDs -Encourage IS 10x/hr -Dispo: Surgery scheduled for Saturday01/23/22 *I reviewed and discussed this case with my attending Dr. Moreno, whom has reviewed this chart and films and is in agreement with assessment and plan of care as outlined above. I have personally seen and examined the patient, performed the documentation and the assessment and plan as written. Number of minutes spent on the visit: 20m. Time with Patient: Less than 30
[2022-01-21] MEDS: SODIUM CHLORIDE 0.9% 1,000 ML IV SCH (10:29)
[2022-01-21] MEDS ORDERED: METOPROLOL TARTRATE 12.5 MG TAB PO STA (11:04)
--- NOTE | 2022-01-21 11:04 | P.PN ---
Subjective Progress Note Date: 01/21/22 Patient is examined today laying in bed resting comfortably. Upon physical exam is noted to have bilateral expiratory wheezes. Will order an incentive spirometer for patient due to surgery is not total Saturday and patient mobility is limited due to back pain. He is encouraged to get up as tolerated. He denies shortness of breath or chest pain. Blood pressure remains uncontrolled Will increase metoprolol to 25 mg daily. Echocardiogram was reviewed and he has cleared for surgery under anesthesia . Objective - Vital Signs Vital signs: Vital Signs Temp 98.5 F 01/21/22 07:11 Pulse 76 01/21/22 07:39 Resp 18 01/21/22 07:11 BP 148/78 01/21/22 07:11 Pulse Ox 92 L 01/21/22 07:11 FiO2 Intake & Output 01/20/22 01/21/22 01/21/22 18:59 06:59 18:59 Intake Total 590 Output Total 2300 Balance -2300 590 Intake: Oral 590 Output: Urine 2300 Uretheral (Weaver) 1700 Other: Voiding Method Indwelling Catheter Indwelling Catheter Indwelling Catheter # Voids 3 - Exam PHYSICAL EXAM: VITAL SIGNS: Reviewed. GENERAL: Well-developed in no acute distress. HEENT: Head is normocephalic. Pupils are equal, round. Sclerae anicteric. Mucous membranes of the mouth are moist. NECK: Supple. No JVD or thyromegaly RESPIRATORY: Respirations even and unlabored. Lungs diminished to auscultation bilaterally. bilateral expiratory wheezes noted CARDIO: Regular rate and rhythm. S1 and S2 heard. No murmur or gallops. EXTREMITIES: Normal range of motion. No clubbing or cyanosis. Peripheral pulses intact. Negative for bilateral lower extremity edema NEURO: Orientated to person, time, mood is appropriate - Labs CBC & Chem 7: 01/19/22 05:52 01/19/22 05:52 Assessment and Plan Assessment: destructive lesion involving T10. Possible malignant lesion. morbid obesity hypertension sinus tachycardia Plan: Echocardiogram reviewed patient is stable to undergo surgical stabilization of the spine. Increase metoprolol to 25 mg daily Ordered incentive spirometer patient is encouraged to use 10 times an hour Further recommendations based on clinical course The above impression and plan of care have been discussed and directed by the signing physician. Lilly Rodriguez, nurse practitioner, acting as scribe for signing physician.
--- NOTE | 2022-01-21 12:06 | P.PN ---
Subjective Progress Note Date: 01/21/22 71-year-old male patient referred to me for a pulmonary nodule with a concern of underlying malignancy. This is a morbidly obese white male patient who is quite debilitated due to chronic back problems and arthritis. The patient has been living independently and [place] and he has been very limited in terms of his exercise capacity due to chronic back pain. Currently is taking methadone as maintenance for chronic back pain and takes Deal on an as-needed basis. He moves around with help of a walker. Despite his limitations due to his obesity and his chronic back pain, the patient has been able to live independently. Denies having any respiratory difficulties. No reported cough sputum production chest tightness or wheezing. No hemoptysis. Recently, he had his dog jump on his chest which she thought caused some injury to his thoracic cage. He was complaining of pain and further investigation was done including a a CT that was done on 11/17/2021 that showed a lobulated spiculated 1.7 cm nodule in the right lung base, 7 mm pulmonary nodule in the right lower lobe and a 6 mm nodule in the right minor fissure.there was also evidence of centrilobular emphysema in the upper lobes and dependent atelectatic changes. This was followed up by a PET/CT that was done on 01/08/2022 and the PET scan showed increased FDG activity within the 1.7 cm nodule in the right lung base with an SUV of 9.54. In addition, there was a right hilar lymph node with a maximum SUV of 23. No abdominal metabolic activity within the abdomen. No activity within the pelvis. In terms of the bony structures, there was a metastatic deposit in the sternum with a maximum SUV of 16.06 and another T1 vertebral body lesion on the left and some metastatic deposits extending from T10 through L4 vertebral bodies. The findings were compatible with metastatic lung cancer and the patient was referred to me accordingly. There was some vague activity in the right parotid gland also. The patient is an ex-smoker. He has worked for the automotive industry in the past. this patient is morbidly obese. Denies having obstructive sleep apnea. He has chronic venous stasis and chronic edema lower extremities along with some chroni c skin ulceration the legs for which she is doing wound care. No altered mentation. No headaches. He has exertional dyspnea. No dyspnea at rest. No angina. No palpitation. No cardiac arrhythmias. No recurrent pneumonias. No recurrent bronchitis and no history of any DVT or pulmonary embolism. . . No reported history of change in his voice quality, hoarseness, or hemoptysis. The patient doesn't utilize any form of respiratory medications or inhalers. He been on Lasix regarding his chronic lower extremity edema. I saw this patient my office on 01/17/2022 and I was planning to proceed with a lung biopsy. After the patient left my office, the patient became weak in the lower extremities to the point where he collapsed and he was unable to walk. The patient's stated that he had also some chronic back pain and was progressively getting more weak. He also reported some tingling in lower ext remity is bilaterally. He had good strength in his upper extremities. No loss in the bowel and bladder control. Based on that, he presented himself to the MRSA problem and the patient's underwent further investigation. CAT scan of the lumbar spine was done and it showed facet arthrosis at the level of L4-L5 and L5-S1 which is moderate to severe in nature along with lumbar lordosis. The level of T10, there is a fracture which has the features of a pathologic fracture and there is a lytic bony destruction noted anteriorly within the vertebral body that tracks down into the pedicles. There is also retropulsion of the posterior body wall into the spinal canal. The patient was seen by spine surgery. There was a concern for the posterior column involvement and potentially stability of the spine. There was also an anterior largest synthetic changes of the adjacent segments. There was also an L1 vertebral body lesion and other lytic foci at the level of T12. Based on all this, the patient is being considered for surgical stabilization of the spine. This may be an opportunity also to establish tissue diagnosis of this patient. For now, the patient on Decadron. He is resting, comfortably in bed. No Tay shortness of breath. Note that his FEV1 was also low in the spirometry. In my office showed a combination of obstructive and restrictive physiology. His FEV1 was in order of 32% of predicted. 01/20/2022, the patient is comfortable. No worsening shortness of breath. The patient is going to undergo an MRI of the brain. Echocardiogram showed normal LV function. The tentative plan is to proceed with surgery by next week. 01/21/2022, no new complaints and the patient underwent MRI of the brain and C- spine that showed no evidence of any metastases. Still weak in lower extremities. He remains on Decadron. Awaiting surgery next week Objective - Vital Signs Vital signs: Vital Signs Temp 98.5 F 01/21/22 07:11 Pulse 84 01/21/22 11:31 Resp 18 01/21/22 07:11 BP 148/78 01/21/22 07:11 Pulse Ox 92 L 01/21/22 07:11 FiO2 Intake & Output 01/20/22 01/21/22 01/21/22 18:59 06:59 18:59 Intake Total 590 Output Total 2300 Balance -2300 590 Intake: Oral 590 Output: Urine 2300 Uretheral (Weaver) 1700 Other: Voiding Method Indwelling Catheter Indwelling Catheter Indwelling Catheter # Voids 3 - Exam GENERAL: Well-developed in no acute distress. Head exam was generally normal. There was no scleral icterus or corneal arcus. Mucous membranes were moist. HEENT: Head is normocephalic. Pupils are equal, round. Sclerae anicteric. Mucous membranes of the mouth are moist. NECK: Supple. No JVD or thyromegaly RESPIRATORY: Respirations even and unlabored. Lungs diminished to auscultation bilaterally. CARDIO: Regular rate and rhythm. S1 and S2 heard. No murmur or gallops. Abdominal exam revealed normal bowel sounds. The abdomen was soft, non-tender, and without masses, organomegaly, or appreciable enlargement of the abdominal aorta. EXTREMITIES: Normal range of motion. No clubbing or cyanosis. Peripheral pulses intact. Negative for bilateral lower extremity edema NEURO: Orientated to person, time, mood is appropriate Examination of the skin revealed no evidence of significant rashes, suspicious appearing nevi or other concerning lesions. - Labs CBC & Chem 7: 01/19/22 05:52 01/19/22 05:52 Assessment and Plan Plan: Acute on chronic lower back pain in addition to suspected pathologic fracture of the level of T10 with unstable spine. The patient is weakness and radiculopathy bilaterally. Patient also has metastatic foci the level of L1 spine. Patient is undergoing an MRI of the spine, no change in the condition Lung mass/Nodule of lung - I reviewed the CAT scan of the chest and the PET scan. In summary, the patient has a 1.7 cm right lower lobe pulmonary nodule with increased FDG an SUV of 9.54 in addition to a right hilar lymph node with an SUV of 23. The patient also has intense uptake within the sternum and SUV of 16.06 and the findings are highly suspicious for metastatic lung cancer. The activity within the thoracic and lumbar spine was also noted.. For now, there is a suspicion that the patient has metastatic lung cancer and needs to be further investigated. He was made aware. He is known to have COPD. Is an ex- smoker. Chronic obstructive lung disease - the spirometry shows a combination of obstructive and restrictive pulmonary physiology. FEV1 is no other of 32% of predicted at baseline. The patient does not use any form of respiratory med ications or inhalers and his resting pulse ox is 96%. J44.9: Chronic obstructive pulmonary disease, unspecified Morbid obesity E66.01: Morbid (severe) obesity due to excess calories Stasis dermatitis of lower limb due to chronic peripheral venous hypertension - with secondary ulcerations I87.399: Chronic venous hypertension (idiopathic) with other complications of unspecified lower extremity Chronic back pain - with significant limitation of mobility and the patient is moving around without a walker and wheelchair. He is on methadone and Deal on an aggressive basis for breakthrough pain. Plan MRI of the C-spine and the brain was negative for any metastases Planning for surgery by next week, scheduled for next Saturday Continue DuoNeb neb last treatment [id number] Continue using the spirometer The patient is going to undergo a spine surgery for stabilization and this will be an opportunity to establish a tissue diagnosis. The patient seeking cardiac clearance. Follow pulmonary standpoint, the patient carries a high risk of developing postoperative pulmonary complications specially with his underlying COPD and restrictive lung physiology due to his morbid obesity. His FEV1 is order of 32% of predicted. Anticipate postoperative complications including atelectasis, pneumonias, respiratory failure requiring noninvasive or invasive ventilation. Continue Decadron Continue methadone for pain control Operative this patient Dilaudid for pain control Lovenox 40 mg subcu 40 prophylaxis We'll continue to follow
--- NOTE | 2022-01-21 18:55 | P.PN ---
Subjective Progress Note Date: 01/21/22 Principal diagnosis: Metastatic Malignancy affecting Cord Objective - Vital Signs Vital signs: Vital Signs Temp 98.5 F 01/21/22 07:11 Pulse 76 01/21/22 07:39 Resp 18 01/21/22 07:11 BP 148/78 01/21/22 07:11 Pulse Ox 92 L 01/21/22 07:11 FiO2 Intake & Output 01/20/22 01/21/22 01/21/22 18:59 06:59 18:59 Intake Total 590 Output Total 2300 Balance -2300 590 Intake: Oral 590 Output: Urine 2300 Uretheral (Weaver) 1700 Other: Voiding Method Indwelling Catheter Indwelling Catheter Indwelling Catheter # Voids 3 - Exam - Constitutional General appearance: Present: cooperative, no acute distress - EENT Eyes: Present: EOMI ENT: Present: NA/AT - Neck Neck: Present: normal ROM - Respiratory Respiratory: right: wheezing - Cardiovascular Rhythm: regularly irregular - Gastrointestinal General gastrointestinal: Present: soft - Integumentary Integumentary: Present: pale - Musculoskeletal Musculoskeletal Comment(s): Lower ext weakness, sensation intact Musculoskeletal: Present: generalized weakness - Psychiatric Psychiatric: Present: A&O x's 3, appropriate affect - Labs CBC & Chem 7: 01/19/22 05:52 01/19/22 05:52 Assessment and Plan (1) Compression of spinal cord Narrative/Plan: Surgical intervention planned saturday and will obtain tissue for path at that time, discussed with Dr. Moreno Current Visit: Yes Status: Acute Code(s): G95.20 - UNSPECIFIED CORD COMPRESSION SNOMED Code(s): 89151847 (2) Lung mass Narrative/Plan: No tissue biopsy for definite diagnosis yet Current Visit: Yes Status: Acute Code(s): R91.8 - OTHER NONSPECIFIC ABNORMAL FINDING OF LUNG FIELD SNOMED Code(s): 455262953 (3) Lytic lesion of bone on x-ray Current Visit: Yes Status: Acute Code(s): M89.9 - DISORDER OF BONE, UNSPECIFIED SNOMED Code(s): 828887699 (4) Mechanical back pain Current Visit: Yes Status: Acute Code(s): M54.9 - DORSALGIA, UNSPECIFIED SNOMED Code(s): 572954604 Plan: Continue Dex, although lower to 4mg n3oeamc and add PPI
[2022-01-21] MEDS: METOPROLOL TARTRATE 25 MG TAB PO SCH (21:25)
--- NOTE | 2022-01-22 01:38 | P.PN ---
Subjective Progress Note Date: 01/21/22 Patient is a 71-year-old male with a known history of bowel resection and chronic back pain presents to ER with complaints of severe intractable back pain and almost fell to the ground because of severe back pain. Patient was found to have a destructive lesion at the T10 and also newly diagnosed pulmonary nodule with possible metastasis. 01/19/2022. Patient is currently lying in the bed. Still complains of back pain. Denies any complaints of numbness or tingling of the lower extremities. No bowel or bladder incontinence. Patient is on Weaver catheter currently. No fever no chills. No cough or sputum production. No headache or dizziness or lightheadedness. continued on dexamethasone 6 mg every 6 hourly. Also on Flexeril and Dilaudid and also on methadone 2.5 mg every 12. Laboratory showed WBC 6.6 hemoglobin 14.0 and platelets 192 Sodium 139 potassium 4.9 chloride 102 bicarb is 25.8 and BUN 17.0 and creatinine 0.8 and calcium 8.4. Pulmonary and orthopedic surgery is on board. Thoracic and lumbar spine CT showed some cord edema due to expansile T10 lesion causing posterior T10 vertebral body margin bulging. Lesion at the L1 level is less well impressive without spinal canal involvement. A 3 mm round intradural extramedullary suspected enhancing lesion superior L4 level is nonspecific but concerning for possible drop metastatic focus. 01/20/2022. Patient is currently lying in the bed. Awake alert and oriented x3. Currently on room air. No complaints of chest pain. Pain is fairly controlled with medications. Patient is scheduled for orthopedic surgery. 2D echocardiogram showed normal left ventricular size and systolic function. Mild TR and mild MR. Patient is undergoing CT head and cervical spine. Otherwise patient denies any cough or sputum production. No fever no chills. No nausea vomiting abdominal pain or diarrhea. 01/21/2022 Patient is currently resting in bed comfortably. Awake alert and oriented x3. Back pain is controlled. Patient is steroids and muscle relaxants and narcotic pain medications. No complaints of chest pain or worsening shortness of breath. No fever no chills. MRI of the brain, cervical MRI showed white matter changes in the per iventricular region more likely related to chronic microvascular ischemic change. No abdominal enhancement or other changes to suggest metastatic disease is identified. Cardiology and pulmonary is on board and patient is scheduled for orthopedic surgery on Saturday. Current medications reviewed Objective - Vital Signs Vital signs: Vital Signs Temp 97.7 F 01/21/22 20:38 Pulse 105 H 01/21/22 21:24 Resp 18 01/21/22 20:38 BP 109/71 01/21/22 21:24 Pulse Ox 96 01/21/22 20:38 FiO2 Intake & Output 01/21/22 01/21/22 01/22/22 06:59 18:59 06:59 Intake Total 590 900 Output Total 1600 Balance 590 -700 Intake: Intake, IV Titration 900 Amount Sodium Chloride 0.9% 1, 900 000 ml @ 75 mls/hr IV . [id number] [facility] Rx#:[id number] Oral 590 Output: Urine 1600 Other: Voiding Method Indwelling Catheter Indwelling Catheter - Exam PHYSICAL EXAMINATION: Patient is lying in the bed comfortably, no acute distress, awake alert and oriented.. HEENT: Normocephalic. Neck is supple. Pupils reactive. Nostrils clear. Oral cavity is moist. Neck reveals no JVD, carotid bruits, or thyromegaly. CHEST EXAMINATION: Trachea is central. Symmetrical expansion. Bibasilar diminished sounds. Mild expiratory wheeze.. CARDIAC: Normal S1, S2 with no gallops. No murmurs ABDOMEN: Soft. Bowel sounds normal. No organomegaly. No abdominal bruits. Extremities: reveal no edema. No clubbing or cyanosis Neurologically awake, alert, oriented x3 with well-coordinated movements. No focal deficits noted Skin: No rash or skin lesions. Psychiatric: Cooperative. Nonsuicidal Musculoskeletal: No joint swelling or deformity. Normal range of motion. - Labs CBC & Chem 7: 01/19/22 05:52 01/19/22 05:52 Assessment and Plan Assessment: Acute on chronic low back pain with T10 compression fracture with possible metastatic lesion. Newly diagnosed lung mass/nodule. possible Pulmonary primary. Patient had PET scan and CT chest recently. Chronic back pain on methadone at home. Morbid obesity BMI 42.1 DVT prophylaxis. Plan: Patient will be continued on pain management with Dilaudid and methadone and Percocet. Continue with duo nebs and incentive spirometry. Continue with dexamethasone 6 mg every 6 hourly.Plan for orthopedic surgery tentatively on Saturday. Pulmonary and orthopedic surgery is on board. cardiac clearance. Continue to follow closely. Discussed with the patient at bedside in detail. Time with Patient: Greater than 30
[2022-01-22] MEDS: SODIUM CHLORIDE 0.9% 1,000 ML IV SCH ×2 (03:40→17:02)
[2022-01-22] MEDS: METHADONE 5 MG TAB PO SCH ×2 (05:50→17:06)
[2022-01-22] MEDS: PANTOPRAZOLE 40 MG TABLET PO SCH (08:04)
[2022-01-22] MEDS: GABAPENTIN 300 MG CAP PO SCH ×3 (08:04→21:17)
[2022-01-22] MEDS: CYCLOBENZAPRINE 10 MG TAB PO SCH ×3 (08:04→21:17)
[2022-01-22] MEDS: ENOXAPARIN 40 MG/0.4 ML SYRINGE SQ SCH (08:04)
[2022-01-22] MEDS: METOPROLOL TARTRATE 25 MG TAB PO SCH ×2 (08:04→20:07)
[2022-01-22] MEDS: FUROSEMIDE 20 MG TAB PO SCH (08:04)
[2022-01-22] MEDS: POTASSIUM CHLORIDE ER 10 MEQ TAB.ER.PRT PO SCH (08:04)
[2022-01-22] MEDS: IPRATROPIUM-ALBUTEROL 3 ML NEB INHALATION SCH ×4 (08:48→20:23)
[2022-01-22 10:50] LABS: Basophils # (A) 0.06 X 10*3/uL (0.00-0.10); Basophils % (A) 0.8 %; Eosinophils # (A) 0.32 X 10*3/uL (0.04-0.35); Eosinophils % (A) 4.5 %; HGB 14.4 g/dL (13.0-17.0); Immature Grans, Automated 0.3 %; Lymphocytes % (A) 16.7 %; MCH 25.4 pg (27.0-32.0); MCV 84.7 fL (80.0-97.0); Mean Platelet Volume 11.3 fL (9.5-12.2); Monocytes # (A) 0.65 X 10*3/uL (0.20-1.00); NRBC Per 100 WBC 0 /100 WBCS (0.0-0.0); Neutrophils # (A) 4.94 X 10*3/uL (1.80-7.70); Neutrophils % (A) 68.7 %; Platelet Count 230 X 10*3/uL (140-440); RBC 5.67 X 10*6/uL (4.40-5.60); WBC 7.19 X 10*3/uL (4.50-10.00)
--- NOTE | 2022-01-22 11:01 | P.PN ---
Subjective Progress Note Date: 01/22/22 Patient is examined today laying in bed resting comfortably. He denies chest pain or increased shortness of breath. Lungs are clear on physical examination. Blood pressure is well-controlled heart rate is controlled. continue with current dose of Lopressor. Patient has a normal LV function and is an a cceptable risk for surgery under anesthesia. . Objective - Vital Signs Vital signs: Vital Signs Temp 97.7 F 01/22/22 05:50 Pulse 80 01/22/22 08:48 Resp 16 01/22/22 08:00 BP 125/81 01/22/22 05:50 Pulse Ox 92 L 01/22/22 05:50 FiO2 Intake & Output 01/21/22 01/22/22 01/22/22 18:59 06:59 18:59 Intake Total 900 600 Output Total 1600 1100 Balance -700 -500 Intake: Intake, IV Titration 900 600 Amount Sodium Chloride 0.9% 1, 900 600 000 ml @ 75 mls/hr IV . [id number] [facility] Rx#:[id number] Output: Urine 1600 1100 Other: Voiding Method Indwelling Catheter Indwelling Catheter Indwelling Catheter - Exam PHYSICAL EXAM: VITAL SIGNS: Reviewed. GENERAL: Well-developed in no acute distress. HEENT: Head is normocephalic. Pupils are equal, round. Sclerae anicteric. Mucous membranes of the mouth are moist. NECK: Supple. No JVD or thyromegaly RESPIRATORY: Respirations even and unlabored. Lungs diminished to auscultation bilaterally. bilateral expiratory wheezes noted CARDIO: Regular rate and rhythm. S1 and S2 heard. No murmur or gallops. EXTREMITIES: Normal range of motion. No clubbing or cyanosis. Peripheral pulses intact. Negative for bilateral lower extremity edema NEURO: Orientated to person, time, mood is appropriate - Labs CBC & Chem 7: 01/22/22 06:22 01/19/22 05:52 Labs: Abnormal Lab Results - Last 24 Hours (Table) 01/22/22 Range/Units 06:22 RBC 5.67 H (4.40-5.60) X 10*6/uL MCH 25.4 L (27.0-32.0) pg MCHC 30.0 L (32.0-37.0) g/dL RDW 17.0 H (11.5-14.5) % Assessment and Plan Assessment: destructive lesion involving T10. Possible malignant lesion. morbid obesity hypertension sinus tachycardia Plan: Echocardiogram reviewed patient is stable to undergo surgical stabilization of the spine. Continue all current cardiac medications Ordered incentive spirometer patient is encouraged to use 10 times an hour Further recommendations based on clinical course The above impression and plan of care have been discussed and directed by the signing physician. Lilly Rodriguez, nurse practitioner, acting as scribe for signi physician.
[2022-01-22 11:13] LABS: Anion Gap 8.6 mmol/L (10.00-18.00); BUN/Creat Ratio 20.86 Ratio (12.00-20.00); Blood Urea Nitrogen 14.6 mg/dL (9.0-27.0); Calcium 8.8 mg/dL (8.7-10.3); Carbon Dioxide 30.4 mmol/L (20.0-27.5); Non-African American GFR(CKD) 94.9 (60.0-200.0); Potassium 4.4 mmol/L (3.5-5.5)
--- NOTE | 2022-01-22 12:01 | P.PN ---
Subjective Progress Note Date: 01/22/22 71-year-old male patient referred to me for a pulmonary nodule with a concern of underlying malignancy. This is a morbidly obese white male patient who is quite debilitated due to chronic back problems and arthritis. The patient has been living independently and [place] and he has been very limited in terms of his exercise capacity due to chronic back pain. Currently is taking methadone as maintenance for chronic back pain and takes [place] on an as-needed basis. He moves around with help of a walker. Despite his limitations due to his obesity and his chronic back pain, the patient has been able to live independently. Denies having any respiratory difficulties. No reported cough sputum production chest tightness or wheezing. No hemoptysis. Recently, he had his dog jump on his chest which she thought caused some injury to his thoracic cage. He was complaining of pain and further investigation was done including a a CT that was done on 11/17/2021 that showed a lobulated spiculated 1.7 cm nodule in the right lung base, 7 mm pulmonary nodule in the right lower lobe and a 6 mm nodule in the right minor fissure.there was also evidence of centrilobular emphysema in the upper lobes and dependent atelectatic changes. This was followed up by a PET/CT that was done on 01/08/2022 and the PET scan showed increased FDG activity within the 1.7 cm nodule in the right lung base with an SUV of 9.54. In addition, there was a right hilar lymph node with a maximum SUV of 23. No abdominal metabolic activity within the abdomen. No activity within the pelvis. In terms of the bony structures, there was a metastatic deposit in the sternum with a maximum SUV of 16.06 and another T1 vertebral body lesion on the left and some metastatic deposits extending from T10 through L4 vertebral bodies. The findings were compatible with metastatic lung cancer and the patient was referred to me accordingly. There was some vague activity in the right parotid gland also. The patient is an ex-smoker. He has worked for the automotive industry in the past. this patient is morbidly obese. Denies having obstructive sleep apnea. He has chronic venous stasis and chronic edema lower extremities along with some chroni c skin ulceration the legs for which she is doing wound care. No altered mentation. No headaches. He has exertional dyspnea. No dyspnea at rest. No angina. No palpitation. No cardiac arrhythmias. No recurrent pneumonias. No recurrent bronchitis and no history of any DVT or pulmonary embolism. . . No reported history of change in his voice quality, hoarseness, or hemoptysis. The patient doesn't utilize any form of respiratory medications or inhalers. He been on Lasix regarding his chronic lower extremity edema. I saw this patient my office on 01/17/2022 and I was planning to proceed with a lung biopsy. After the patient left my office, the patient became weak in the lower extremities to the point where he collapsed and he was unable to walk. The patient's stated that he had also some chronic back pain and was progressively getting more weak. He also reported some tingling in lower ext remity is bilaterally. He had good strength in his upper extremities. No loss in the bowel and bladder control. Based on that, he presented himself to the MRSA problem and the patient's underwent further investigation. CAT scan of the lumbar spine was done and it showed facet arthrosis at the level of L4-L5 and L5-S1 which is moderate to severe in nature along with lumbar lordosis. The level of T10, there is a fracture which has the features of a pathologic fracture and there is a lytic bony destruction noted anteriorly within the vertebral body that tracks down into the pedicles. There is also retropulsion of the posterior body wall into the spinal canal. The patient was seen by spine surgery. There was a concern for the posterior column involvement and potentially stability of the spine. There was also an anterior largest synthetic changes of the adjacent segments. There was also an L1 vertebral body lesion and other lytic foci at the level of T12. Based on all this, the patient is being considered for surgical stabilization of the spine. This may be an opportunity also to establish tissue diagnosis of this patient. For now, the patient on Decadron. He is resting, comfortably in bed. No Tay shortness of breath. Note that his FEV1 was also low in the spirometry. In my office showed a combination of obstructive and restrictive physiology. His FEV1 was in order of 32% of predicted. 01/20/2022, the patient is comfortable. No worsening shortness of breath. The patient is going to undergo an MRI of the brain. Echocardiogram showed normal LV function. The tentative plan is to proceed with surgery by next week. 01/21/2022, no new complaints and the patient underwent MRI of the brain and C- spine that showed no evidence of any metastases. Still weak in lower extremities. He remains on Decadron. Awaiting surgery next week 01/22/2022, no new complaints and the patient is going to undergo surgery tomorrow. Respiratory status is borderline is stable as the patient is known to have COPD with significant impairment in the FEV1. This obviously would put him on an increased risk of developing postoperative pulmonary complications. The patient is a normal LV function. Hemodynamically stable. Pulse ox is 92% on room air oxygen. Objective - Vital Signs Vital signs: Vital Signs Temp 97.8 F 01/22/22 11:10 Pulse 82 01/22/22 11:39 Resp 16 01/22/22 11:10 BP 123/76 01/22/22 11:10 Pulse Ox 92 L 01/22/22 11:10 FiO2 Intake & Output 01/21/22 01/22/22 01/22/22 18:59 06:59 18:59 Intake Total 900 600 Output Total 1600 1100 Balance -700 -500 Intake: Intake, IV Titration 900 600 Amount Sodium Chloride 0.9% 1, 900 600 000 ml @ 75 mls/hr IV . [id number] [facility] Rx#:[id number] Output: Urine 1600 1100 Other: Voiding Method Indwelling Catheter Indwelling Catheter Indwelling Catheter - Exam GENERAL: Well-developed in no acute distress. Head exam was generally normal. There was no scleral icterus or corneal arcus. Mucous membranes were moist. HEENT: Head is normocephalic. Pupils are equal, round. Sclerae anicteric. Mucous membranes of the mouth are moist. NECK: Supple. No JVD or thyromegaly RESPIRATORY: Respirations even and unlabored. Lungs diminished to auscultation bilaterally. CARDIO: Regular rate and rhythm. S1 and S2 heard. No murmur or gallops. Abdominal exam revealed normal bowel sounds. The abdomen was soft, non-tender, and without masses, organomegaly, or appreciable enlargement of the abdominal aorta. EXTREMITIES: Normal range of motion. No clubbing or cyanosis. Peripheral pulses intact. Negative for bilateral lower extremity edema NEURO: Orientated to person, time, mood is appropriate Examination of the skin revealed no evidence of significant rashes, suspicious appearing nevi or other concerning lesions. - Labs CBC & Chem 7: 01/22/22 06:22 01/22/22 06:22 Labs: Abnormal Lab Results - Last 24 Hours (Table) 01/22/22 01/22/22 Range/Units 06: 06:22 RBC 5.67 H (4.40-5.60) X 10*6/uL MCH 25.4 L (27.0-32.0) pg MCHC 30.0 L (32.0-37.0) g/dL RDW 17.0 H (11.5-14.5) % Carbon Dioxide 30.4 H (20.0-27.5) mmol/L Anion Gap 8.60 L (10.00-18.00) mmol/L BUN/Creatinine Ratio 20.86 H (12.00-20.00) Ratio Assessment and Plan Plan: Acute on chronic lower back pain in addition to suspected pathologic fracture of the level of T10 with unstable spine. The patient is weakness and radiculopathy bilaterally. Patient also has metastatic foci the level of L1 spine. Patient is undergoing an MRI of the spine, no change in the condition Lung mass/Nodule of lung - I reviewed the CAT scan of the chest and the PET scan. In summary, the patient has a 1.7 cm right lower lobe pulmonary nodule with increased FDG an SUV of 9.54 in addition to a right hilar lymph node with an SUV of 23. The patient also has intense uptake within the sternum and SUV of 16.06 and the findings are highly suspicious for metastatic lung cancer. The activity within the thoracic and lumbar spine was also noted.. For now, there is a suspicion that the patient has metastatic lung cancer and needs to be further investigated. He was made aware. He is known to have COPD. Is an ex-smoker. Chronic obstructive lung disease - the spirometry shows a combination of obstructive and restrictive pulmonary physiology. FEV1 is no other of 32% of predicted at baseline. The patient does not use any form of respiratory medications or inhalers and his resting pulse ox is 96%. J44.9: Chronic obstructive pulmonary disease, unspecified Morbid obesity E66.01: Morbid (severe) obesity due to excess calories Stasis dermatitis of lower limb due to chronic peripheral venous hypertension - with secondary ulcerations I87.399: Chronic venous hypertension (idiopathic) with other complications of unspecified lower extremity Chronic back pain - with significant limitation of mobility and the patient is moving around without a walker and wheelchair. He is on methadone and [place] on an aggressive basis for breakthrough pain. Plan Proceed for surgery tomorrow and hopefully the frozen section will be done intraoperatively to establish final diagnoses regarding his malignancy. Suspect lung cancer with metastases to the spine Increased risk of postoperative pulmonary complications due to his advanced lung disease and morbid obesity. MRI of the C-spine and the brain was negative for any metastases Continue DuoNeb neb last treatment [id number] Continue using the spirometer The patient is going to undergo a spine surgery for stabilization and this will be an opportunity to establish a tissue diagnosis. The patient seeking cardiac clearance. Follow pulmonary standpoint, the patient carries a high risk of developing postoperative pulmonary complications specially with his underlying COPD and restrictive lung physiology due to his morbid obesity. His FEV1 is order of 32% of predicted. Anticipate postoperative complications including atelectasis, pneumonias, respiratory failure requiring noninvasive or invasive ventilation. Continue Decadron Continue methadone for pain control Operative this patient Dilaudid for pain control May need intensive care unit postop and this will be further coordinated with her orthopedic surgeon. May also need the final pathologic diagnosis hopefully from the frozen sections collected at the time of surgery.
--- NOTE | 2022-01-22 12:22 | P.PN ---
Subjective Progress Note Date: 01/22/22 Pt s/e. Doing OK. No issues at this time. We discussed tomorrows surgical plans and he agreed again. Still with back pain, cannot sit up. LE still weakened, no focal deficits and no acute changes at this time. Still with radiculopathy in LE b/l. No perineal numbness/tingling. Reyes in place. Pass ing gas. No BM. Ready for surgery. Objective - Vital Signs Vital signs: Vital Signs Temp 97.7 F 01/22/22 05:50 Pulse 80 01/22/22 08:48 Resp 16 01/22/22 08:00 BP 125/81 01/22/22 05:50 Pulse Ox 92 L 01/22/22 05:50 FiO2 Intake & Output 01/21/22 01/22/22 01/22/22 18:59 06:59 18:59 Intake Total 900 600 Output Total 1600 1100 Balance -700 -500 Intake: Intake, IV Titration 900 600 Amount Sodium Chloride 0.9% 1, 900 600 000 ml @ 75 mls/hr IV . [id number] [facility] Rx#:[id number] Output: Urine 1600 1100 Other: Voiding Method Indwelling Catheter Indwelling Catheter Indwelling Catheter - Exam Exam repeated today, no significant changes. PHYSICAL EXAMINATION: Vitals: Stable at this time General: Awake, alert, appropriate for age, in no acute distress. HEENT: No unusual neck masses around region of lateral neck triangle, thyroid, supraclavicular groove. Extremities: Skin warm and dry without no acute lesions, coloration, temperature, skin intact, no tenderness or erythema. Integument: Hairy patches: Absent Dorsal skin dimples: Absent Cafe [place] lait spots: Absent Surgical incisions: no back incisions noted Palpation: Please see Pain drawing on Intake sheet for further detail. (Tenderness = T, Nontender = NT, Swelling = S, Ecchymosis = E) Findings on Midline and paraspinal palpation and percussion: Cervical: NT Thoracic: midline and paraspinal tenderness to palpation Lumbar: midline tenderness to palpation as well as paraspinal tenderness to pa lpation Sacral: NT Special findings: [] POSTURAL and MUSCULO-SKELETAL EVALUATION: Neck ROM: [Unrestricted in six directions] Lumbar ROM: restricted at this time as the patient is somewhat bedridden and cannot move due to the pain Shoulder ROM: Symmetric in abduction, ER/IR Hip ROM: Symmetric in abduction, adduction, ER/IR Knee ROM: Symmetric and intact in Flexion / extension Hands: Normal appearing structure L and R Feet: Normal appearing structure L and R VASCULAR STATUS : Wrist Pulses: [2/4 bilateral radial and ulnar] Pedal Pulses: [2/4 bilateral DP and PT] Color: mottling lower extremities anterior tibial portion, vasculopath Edema: 2+ pitting edema bilateral lower extremities NEUROLOGIC EXAMINATION: Mental Status: Awake and alert, fully oriented, with normal attention, concentration and memory, and fluent, appropriate speech. Cranial Nerves: I: Olfactory not tested. II: Visual acuity normal, no visual field deficit noted with confrontation. III,IV: Normal pupillary reflexes & intact extraocular movements without nystagmus. V,: Intact symmetrical facial sensation. VII: Intact symmetrical facial motor movement VIII: Hearing intact. IX,X: Intact gag, swallow, & normal voice. XI: Sternocleidomastoid, trapezius function intact. XII: Tongue midline with normal movements. Special Tests: Cubital percussion test: Absent Bilateral Sarah-Tinel sign - Carpal region: Absent Bilateral Straight Leg Raising: Absent Bilateral Motor Exam (0-5/5, N/T) STRENGTH UPPER EXTREMITY Shoulder Abd (Not part of PAUL Motor score): RIGHT [5] LEFT [5] Elbow Flexors: RIGHT [5] LEFT [5] Elbow Extensor: RIGHT [5] LEFT [5] Wrrist Dorsiflexors: RIGHT [5] LEFT [5] Finger Abductor: RIGHT [5] LEFT [5] Pathology Technologist: RIGHT [5] LEFT [5] LOWER EXTREMITY Hip Flexor (Not part of PAUL Motor Score): RIGHT 4 LEFT 4 this is secondary to pain at this time Knee Flexor: RIGHT 4 LEFT 4 also secondary to pain and difficult to do due to the pain that he is in his back Knee Extensor: RIGHT 4 LEFT 4 secondary to pain Ankle Dorsiflexion: RIGHT [5] LEFT [5] Ankle Plantarflexion: RIGHT [5] LEFT [5] EHL: RIGHT [5] LEFT [5] FHL: RIGHT [5] LEFT [5] PAUL Motor Score: RIGHT [50]/50 LEFT [50]/50 REFLEXES Biecp: RIGHT [2] LEFT [2] Tricep: RIGHT [2] LEFT [2] Brachioradialis: RIGHT [2] LEFT [2] Patellar: RIGHT [2] LEFT [2] Achilles: RIGHT [2] LEFT [2] Pathological Reflexes Barlow's: RIGHT [Absent] LEFT [Absent] Babinski: RIGHT [Absent] LEFT [Absent] Clonus: RIGHT [None] LEFT [None] SENSORY Joint Position: [Intact bilaterally] Vibration [Intact bilaterally] Pain and LT sense [Intact C5-T1 and L2-S1] Dermatomal deficit [None] Gait and Functional Evaluation: nonambulatory at this time due to pain - Labs CBC & Chem 7: 01/22/22 06:22 01/22/22 06:22 Labs: Abnormal Lab Results - Last 24 Hours (Table) 01/22/22 Range/Units 06:22 RBC 5.67 H (4.40-5.60) X 10*6/uL MCH 25.4 L (27.0-32.0) pg MCHC 30.0 L (32.0-37.0) g/dL RDW 17.0 H (11.5-14.5) % Assessment and Plan Assessment: 71 yo male mid/low back pain, severe Likely pathological fracture T10 AO type B2/A4 burst LE radiculopathy b/l LE weakness b/l L1 lytic foci Left Lung lobe nodule complex medical patient Plan: -Appreciate computer consultant and team management -Labs set for tomorrow AM -NPO @[place] -Pre op check list -Pre op abx -Hold anticoag -Mechanical DVT ppx -Plan for surgical stabilization T7 to L1-2 with T11 biopsy and stabilization on Saturday01/23/22.
[2022-01-22] MEDS ORDERED: TRANEXAMIC ACID IN NACL,ISO-OS 1,000 MG in SALINE 1 100ML.BAG IVPB ONE (12:27)
--- NOTE | 2022-01-22 18:10 | PN ---
PROGRESS NOTE DATE OF SERVICE: 01/22/2022 This 71-year-old gentleman who was admitted with severe back pain and acute T10 compression fracture is also being evaluated for possibility of metastases. Patient is complaining of severe pain. No chest pain. No palpitations. No fever. Surgery is being planned next week. PHYSICAL EXAMINATION: Pulse 86, blood pressure 127/60, respiratory rate 16. CHEST: A few scattered rhonchi. ABDOMEN: Soft. CARDIOVASCULAR: S1, S2 muffled. NERVOUS SYSTEM: No focal deficit. LABS: Reviewed. Sodium 137, potassium 4.4. ASSESSMENT: 1. Acute on chronic low back pain with a T10 compression fracture with possible metastatic lesion. 2. Newly diagnosed lung mass nodule, possibly pulmonary primary. 3. Chronic back pain, on methadone 4. Morbid obesity. 5. Deep vein thrombosis prophylaxis. RECOMMENDATIONS AND DISCUSSION: I recommend to continue current medications, continue with the monitoring, symptomatic treatment. Continue the DVT prophylaxis. Continue the pain management. Possible surgery, as mentioned earlier. Further recommendations to follow. MMODL / IJN: [id number] / AMANDA
[2022-01-23] MEDS: SODIUM CHLORIDE 0.9% 1,000 ML IV SCH ×2 (03:04→20:45)
[2022-01-23 03:45] LABS: Basophils # (A) 0.1 k/uL (0-0.2); Basophils % (A) 1 %; Eosinophils # (A) 0.5 k/uL (0-0.7); Eosinophils % (A) 6 %; HCT 47.5 % (39.0-53.0); HGB 14.3 gm/dL (13.0-17.5); Hypochromasia Slight; Lymphocytes # (A) 1.1 k/uL (1.0-4.8); Lymphocytes % (A) 14 %; MCH 25.6 pg (25.0-35.0); MCHC 30.1 g/dL (31.0-37.0); MCV 85.2 fL (80.0-100.0); Mean Platelet Volume 8.1; Monocytes # (A) 0.4 k/uL (0-1.0); Monocytes % (A) 5 %; Neutrophils # (A) 5.9 k/uL (1.3-7.7); Neutrophils % (A) 73 %; Platelet Count 238 k/uL (150-450); RBC 5.57 m/uL (4.30-5.90); RDW 15.7 % (11.5-15.5)
[2022-01-23 03:54] LABS: INR 1.1 (<1.2); Prothrombin Time 11.6 sec (9.0-12.0)
[2022-01-23 04:09] LABS: ALT 19 U/L (4-49); AST 27 U/L (17-59); African American GFR (CKD) >90 (>60 ml/min/1.73 sqM); Albumin 3.1 g/dL (3.5-5.0); Alkaline Phosphatase 85 U/L (38-126); Anion Gap 6 mmol/L; Blood Urea Nitrogen 15 mg/dL (9-20); Calcium 8.4 mg/dL (8.4-10.2); Carbon Dioxide 27 mmol/L (22-30); Chloride 100 mmol/L (98-107); Globulin 3.2 g/dL; Glucose 106 mg/dL (74-99); Non-African American GFR(CKD) >90 (>60 ml/min/1.73 sqM); Sodium 133 mmol/L (137-145); Total Bilirubin 0.7 mg/dL (0.2-1.3); Total Protein 6.3 g/dL (6.3-8.2)
[2022-01-23 04:40] LABS: Potassium 4.5 mmol/L (3.5-5.1)
[2022-01-23] MEDS ORDERED: VANCOMYCIN 2,000 MG in SODIUM CHLORIDE 0.9% 500 ML 500 ML IVPB ONE (05:00)
[2022-01-23] MEDS: METHADONE 5 MG TAB PO SCH ×2 (05:25→23:54)
[2022-01-23] MEDS ORDERED: TRANEXAMIC ACID 1,000 MG in SODIUM CHLORIDE 0.9% 100 ML IVPB ONE ×6 (06:00)
[2022-01-23] MEDS ORDERED: VANCOMYCIN IV PER PHARMACY 1 EACH MISC MISCELLANE PRN (06:00)
[2022-01-23] MEDS: IPRATROPIUM-ALBUTEROL 3 ML NEB INHALATION SCH ×4 (08:29→20:52)
[2022-01-23] MEDS: CYCLOBENZAPRINE 10 MG TAB PO SCH ×3 (12:29→23:54)
[2022-01-23] MEDS: FUROSEMIDE 20 MG TAB PO SCH (12:29)
[2022-01-23] MEDS: PANTOPRAZOLE 40 MG TABLET PO SCH (12:29)
[2022-01-23] MEDS: GABAPENTIN 300 MG CAP PO SCH ×2 (12:29→23:54)
[2022-01-23] MEDS: POTASSIUM CHLORIDE ER 10 MEQ TAB.ER.PRT PO SCH (12:29)
[2022-01-23] MEDS: METOPROLOL TARTRATE 25 MG TAB PO SCH (12:30)
--- NOTE | 2022-01-23 12:33 | P.PN ---
Subjective Progress Note Date: 01/23/22 HISTORY OF PRESENT ILLNESS: Patient examined this morning at the bedside. Patient denies chest pain or pressure. Denies SOB. He is scheduled for surgery today with orthopedics. Echo c ompleted revealing preserved systolic function. PHYSICAL EXAM: VITAL SIGNS: Reviewed. GENERAL: Well-developed in no acute distress. NECK: Supple. No JVD or thyromegaly LUNGS: Respirations even and unlabored. Lungs essentially clear to auscultation bilaterally. HEART: Regular rate and rhythm. S1 and S2 heard. Systolic murmur noted. EXTREMITIES: Normal range of motion. No clubbing or cyanosis. Peripheral pulses intact. No lower extremity edema ASSESSMENT: T10 fracture Left lung nodule Sinus tachycardia PLAN: Patient mildly tachycardic this morning. However, nursing reports she did not give his cardiac medications this morning. Reason is unknown. Nursing states she will give metoprolol now. Patient has been cleared to proceed with surgery from a cardiac standpoint We will follow on as needed basis. Please call with questions or concerns. Nurse practitioner note has been reviewed by physician. Signing provider agrees with the documented findings, assessment, and plan of care. Objective - Vital Signs Vital signs: Vital Signs Temp 98.2 F 01/23/22 11:06 Pulse 101 H 01/23/22 12:13 Resp 18 01/23/22 11:06 BP 132/85 01/23/22 11:06 Pulse Ox 93 L 01/23/22 11:06 FiO2 Intake & Output 01/22/22 01/23/22 01/23/22 18:59 06:59 18:59 Intake Total 900 Output Total 1050 1500 700 Balance -150 -1500 -700 Intake: Intake, IV Titration 900 Amount Sodium Chloride 0.9% 1, 900 000 ml @ 75 mls/hr IV . [id number] [facility] Rx#:[id number] Output: Urine 1050 1500 700 Other: Voiding Method Indwelling Catheter Indwelling Catheter Indwelling Catheter - Labs CBC & Chem 7: 01/23/22 03:31 01/23/22 03:31 Labs: Abnormal Lab Results - Last 24 Hours (Table) 01/23/22 01/23/22 Range/Units 03:31 03:31 MCHC 30.1 L (31.0-37.0) g/dL RDW 15.7 H (11.5-15.5) % Sodium 133 L (137-145) mmol/L Glucose 106 H (74-99) mg/dL Albumin 3.1 L (3.5-5.0) g/dL
[2022-01-23] MEDS: METOPROLOL TARTRATE 50 MG TAB PO SCH ×2 (12:41→23:54)
--- NOTE | 2022-01-23 14:02 | P.PN ---
Subjective Progress Note Date: 01/23/22 Principal diagnosis: Acute on chronic intractable lower back pain 71-year-old male patient referred to me for a pulmonary nodule with a concern of underlying malignancy. This is a morbidly obese white male patient who is quite debilitated due to chronic back problems and arthritis. The patient has been living independently and [place] and he has been very limited in terms of his exercise capacity due to chronic back pain. Currently is taking methadone as maintenance for chronic back pain and takes [place] on an as-needed basis. He moves around with help of a walker. Despite his limitations due to his obesity and his chronic back pain, the patient has been able to live independently. Denies having any respiratory difficulties. No reported cough sputum production chest tightness or wheezing. No hemoptysis. Recently, he had his dog jump on his chest which she thought caused some injury to his thoracic cage. He was complaining of pain and further investigation was done including a a CT that was done on 11/17/2021 that showed a lobulated spiculated 1.7 cm nodule in the right lung base, 7 mm pulmonary nodule in the right lower lobe and a 6 mm nodule in the right minor fissure.there was also evidence of centrilobular emphysema in the upper lobes and dependent atelectatic changes. This was followed up by a PET/CT that was done on 01/08/2022 and the PET scan showed increased FDG activity within the 1.7 cm nodule in the right lung base with an SUV of 9.54. In addition, there was a right hilar lymph node with a maximum SUV of 23. No abdominal metabolic activity within the abdomen. No activity within the pelvis. In terms of the bony structures, there was a metastatic deposit in the sternum with a maximum SUV of 16.06 and another T1 vertebral body lesion on the left and some metastatic deposits extending from T10 through L4 vertebral bodies. The findings were compatible with metastatic lung cancer and the patient was referred to me accordingly. There was some vague activity in the right parotid gland also. The patient is an ex-smoker. He has worked for the automotive industry in the past. this patient is morbidly obese. Denies having obstructive sleep apnea. He has chronic venous stasis and chronic edema lower extremities along with some chronic skin ulceration the legs for which she is doing wound care. No altered mentation. No headaches. He has exertional dyspnea. No dyspnea at rest. No angina. No palpitation. No cardiac arrhythmias. No recurrent pneumonias. No recurrent bronchitis and no history of any DVT or pulmonary embolism. . . No reported history of change in his voice quality, hoarseness, or hemoptysis. The patient doesn't utilize any form of respiratory medications or inhalers. He been on Lasix regarding his chronic lower extremity edema. I saw this patient my office on 01/17/2022 and I was planning to proceed with a lung biopsy. After the patient left my office, the patient became weak in the lower extremities to the point where he collapsed and he was unable to walk. The patient's stated that he had also some chronic back pain and was progressively getting more weak. He also reported some tingling in lower extremity is bilaterally. He had good strength in his upper extremities. No loss in the bowel and bladder control. Based on that, he presented himself to the MRSA problem and the patient's underwent further investigation. CAT scan of the lumbar spine was done and it showed facet arthrosis at the level of L4-L5 and L5-S1 which is moderate to severe in nature along with lumbar lordosis. The level of T10, there is a fracture which has the features of a pathologic fracture and there is a lytic bony destruction noted anteriorly within the vertebral body that tracks down into the pedicles. There is also retropulsion of the posterior body wall into the spinal canal. The patient was seen by spine surgery. There was a concern for the posterior column involvement and potentially stability of the spine. There was also an anterior largest synthetic changes of the adjacent segments. There was also an L1 vertebral body lesion and other lytic foci at the level of T12. Based on all this, the patient is being considered for surgical stabilization of the spine. This may be an opportunity also to establish tissue diagnosis of this patient. For now, the patient on Decadron. He is resting, comfortably in bed. No [place] shortness of breath. Note that his FEV1 was also low in the spirometry. In my office showed a combination of obstructive and restrictive physiology. His FEV1 was in order of 32% of predicted. 01/20/2022, the patient is comfortable. No worsening shortness of breath. The patient is going to undergo an MRI of the brain. Echocardiogram showed normal LV function. The tentative plan is to proceed with surgery by next week. 01/21/2022, no new complaints and the patient underwent MRI of the brain and C- spine that showed no evidence of any metastases. Still weak in lower extremities. He remains on Decadron. Awaiting surgery next week 01/22/2022, no new complaints and the patient is going to undergo surgery tomorrow. Respiratory status is borderline is stable as the patient is known to have COPD with significant impairment in the FEV1. This obviously would put him on an increased risk of developing postoperative pulmonary complications. The patient is a normal LV function. Hemodynamically stable. Pulse ox is 92% on room air oxygen. On 01/23/2022 patient seen in follow-up on medical oncology floor. He is awake alert, in no acute distress, is lying flat in bed, with head of the bed up at 15-20, does not appear to be in any acute distress, denies any shortness of breath, no chest pain no cough, no wheezing. Room air pulse ox is 93%, his been afebrile. Lung sounds are clear, diminished at the bases. Remains on DuoNeb, COPD seems to be stable. His thoracic spine CT lung windows showed small amount of bilateral pleural effusions and this was on 01/19/2022. Today's labs have been reviewed, white count is normal at 8.0, hemoglobin is 14.3, sodium is 133, the rest of the electrolytes and renal profile are unremarkable. Vital signs have been stable, no fever or chills. Patient is scheduled for surgery today with stabilization, and tissue diagnosis to rule out possibility of metastatic cancer possibly lung primary Objective - Vital Signs Vital signs: Vital Signs Temp 98.2 F 01/23/22 11:06 Pulse 101 H 01/23/22 12:13 Resp 18 01/23/22 11:06 BP 132/85 01/23/22 11:06 Pulse Ox 93 L 01/23/22 11:06 FiO2 Intake & Output 01/22/22 01/23/22 01/23/22 18:59 06:59 18:59 Intake Total 900 Output Total 1050 1500 700 Balance -150 -1500 -700 Intake: Intake, IV Titration 900 Amount Sodium Chloride 0.9% 1, 900 000 ml @ 75 mls/hr IV . [id number] [facility] Rx#:[id number] Output: Urine 1050 1500 700 Other: Voiding Method Indwelling Catheter Indwelling Catheter Indwelling Catheter - Exam GENERAL EXAM: Alert, active, comfortable in no apparent distress. HEAD: Normocephalic/atraumatic. EYES: Normal reaction of pupils, equal size. Conjunctiva pink, sclera white. NOSE: Clear with pink turbinates. THROAT: No erythema or exudates. NECK: No masses, no JVD, no thyroid enlargement, no adenopathy. CHEST: No chest wall deformity. Symmetrical expansion. LUNGS: Equal air entry with no crackles, wheeze, rhonchi or dullness. CVS: Regular rate and rhythm, normal S1 and S2, no gallops, no murmurs, no rubs ABDOMEN: Soft, nontender. No hepatosplenomegaly, normal bowel sounds, no guarding or rigidity. EXTREMITIES: No clubbing, no edema, no cyanosis, 2+ pulses and upper and lower extremities. MUSCULOSKELETAL: Muscle strength and tone normal. SPINE: No scoliosis or deformity SKIN: No rashes CENTRAL NERVOUS SYSTEM: Alert and oriented -3. No focal deficits, tone is normal in all 4 extremities. PSYCHIATRIC: Alert and oriented -3. Appropriate affect. Intact judgment and insight. - Labs CBC & Chem 7: 01/23/22 03:31 01/23/22 03:31 Labs: Abnormal Lab Results - Last 24 Hours (Table) 01/23/22 01/23/22 Range/Units 03:31 03:31 MCHC 30.1 L (31.0-37.0) g/dL RDW 15.7 H (11.5-15.5) % Sodium 133 L (137-145) mmol/L Glucose 106 H (74-99) mg/dL Albumin 3.1 L (3.5-5.0) g/dL Assessment and Plan Plan: Assessment: #1. Term chronic lower back pain related to suspected pathologic fracture of the level of T10 with unstable spine. Patient complained of weakness and radiculopathy bilaterally, patient had metastatic foci at the level of L1 spine on the PET scan, MRI of the C-spine and the brain was negative for metastasis. Patient is going for surgery today for stabilization of spine on 01/23/[address] Shaw #2. Lung mass/lung nodule, CT scan of the chest and the PET scan revealed a 1.7 cm right lower lobe pulmonary nodule with increased uptake on the PET scan an SUV of 9.54, and a right hilar lymph node with an SUV of 23. Patient also had intense uptake within the sternum with SUV of 16.06, besides these findings were highly suspicious for metastatic lung cancer. #3. History of COPD, advanced, stage III E. on FEV1 of 32% of predicted at baseline, patient has a combination of obstructive and restrictive pulmonary physiology related to morbid obesity and history of COPD #4. Morbid obesity with BMI 42.2 kg/m #5. Stasis dermatitis of bilateral lower extremities related to chronic peripheral venous hypertension with secondary ulcerations #6. Chronic back pain Plan: Patient remains stable from pulmonary perspective however he is a increased postoperative risk We will continue to follow his clinical course, and there is possibly patient may need ICU admission after his surgery Continue encouraging deep breathing and coughing Breathing treatments with DuoNeb 4 times daily Maintain pain control Continue Decadron We'll continue to follow I have personally seen and examined the patient, performed the documentation and the assessment and plan as written. Number of minutes spent on the visit: [10] Time with Patient: Less than 30
[2022-01-23] MEDS ORDERED: LACTATED RINGERS 1,000 ML IV ONE ×4 (15:24→21:33)
[2022-01-23] MEDS ORDERED: MIDAZOLAM 2 MG/2 ML VIAL IVP ONE (15:50)
[2022-01-23 16:20] LABS: Glucose,Whole Blood 78 mg/dL (75-99)
[2022-01-23] MEDS ORDERED: DEXTROSE 50% SYRINGE 50 ML IVP ONE (16:25)
[2022-01-23] MEDS ORDERED: THROMBIN (BOVINE) 5,000 UNIT VIAL TOPICAL ONE (16:44)
[2022-01-23] MEDS ORDERED: LIDOCAINE 0.5%-EPI 1:200,000 50 ML VIAL SQ ONE (16:44)
[2022-01-23] MEDS ORDERED: GELATIN SPONGE,ABSORB (LARGE) 1 EACH SPONGE TOPICAL ONE (16:44)
--- NOTE | 2022-01-23 18:17 | P.PN ---
Progress Note - Text Progress Note Date: 01/23/22 Patient is a 71-year-old male with a known history of bowel resection and chronic back pain presents to ER with complaints of severe intractable back pain and almost fell to the ground because of severe back pain. Patient was found to have a destructive lesion at the T10 and also newly diagnosed pulmonary nodule with possible metastasis. 01/19/2022. Patient is currently lying in the bed. Still complains of back pain. Denies any complaints of numbness or tingling of the lower extremities. No bowel or bladder incontinence. Patient is on Weaver catheter currently. No fever no chills. No cough or sputum production. No headache or dizziness or lightheadedness. continued on dexamethasone 6 mg every 6 hourly. Also on Flexeril and Dilaudid and also on methadone 2.5 mg every 12. Laboratory showed WBC 6.6 hemoglobin 14.0 and platelets 192 Sodium 139 potassium 4.9 chloride 102 bicarb is 25.8 and BUN 17.0 and creatinine 0.8 and calcium 8.4. Pulmonary and orthopedic surgery is on board. Thoracic and lumbar spine CT showed some cord edema due to expansile T10 lesion causing posterior T10 vertebral body margin bulging. Lesion at the L1 level is less well impressive without spinal canal involvement. A 3 mm round intradural extramedullary suspected enhancing lesion superior L4 level is nonspecific but concerning for possible drop metastatic focus. 01/20/2022. Patient is currently lying in the bed. Awake alert and oriented x3. Currently on room air. No complaints of chest pain. Pain is fairly controlled with medications. Patient is scheduled for orthopedic surgery. 2D echocardiogram showed normal left ventricular size and systolic function. Mild TR and mild MR. Patient is undergoing CT head and cervical spine. Otherwise patient denies any cough or sputum production. No fever no chills. No nausea vomiting abdominal pain or diarrhea. 01/21/2022 Patient is currently resting in bed comfortably. Awake alert and oriented x3. Back pain is controlled. Patient is steroids and muscle relaxants and narcotic pain medications. No complaints of chest pain or worsening shortness of breath. No fever no chills. MRI of the brain, cervical MRI showed white matter changes in the periventricular region more likely related to chronic microvascular ischemic change. No abdominal enhancement or other changes to suggest metastatic disease is identified. Cardiology and pulmonary is on board and patient is scheduled for orthopedic surgery on Saturday. January 23: I assumed care of patient today. Laying in bed. Nothing by mouth. Pending surgery later this afternoon. No new issues. Back pain present. Active Medications Acetaminophen (Acetaminophen Tab 325 Mg Tab) 650 mg PO Q6HR PRN PRN Reason: Mild Pain or Fever > 100.5 Albuterol/Ipratropium (Ipratropium-Albuterol 3 Ml Neb) 3 ml INHALATION RT-QID [facility] Last Admin: 01/23/22 15:42 Dose: Not Given Cyclobenzaprine HCl (Cyclobenzaprine 10 Mg Tab) 10 mg PO TID [facility] Last Admin: 01/23/22 12:29 Dose: Not Given Dexamethasone Sodium Phosphate (Dexamethasone Sod Phosphate 4 Mg/Ml 1 Ml Vial) 6 mg IVP Q6HR PRN PRN Reason: Nausea And Vomiting Furosemide (Furosemide 20 Mg Tab) 20 mg PO DAILY [facility] Last Admin: 01/23/22 12:29 Dose: Not Given Gabapentin (Gabapentin 300 Mg Cap) 300 mg PO TID [facility] Last Admin: 01/23/22 12:29 Dose: Not Given Hydromorphone HCl (Hydromorphone 0.5 Mg/0.5 Ml Syringe) 0.5 mg IVP Q3HR PRN PRN Reason: Moderate Pain Hydromorphone HCl (Hydromorphone 1 Mg/Ml 1 Ml Syringe) 1 mg IVP Q3HR PRN PRN Reason: Severe Pain Last Admin: 01/18/22 17:25 Dose: 1 mg Sodium Chloride (Saline 0.9%) 1,000 mls @ 75 mls/hr IV .[id number] [facility] Last Admin: 01/23/22 03:04 Dose: 75 mls/hr Methadone HCl (Methadone 5 Mg Tab) 2.5 mg PO Q12H [facility] Last Admin: 01/23/22 05:25 Dose: 2.5 mg Metoprolol Tartrate (Metoprolol Tartrate 50 Mg Tab) 50 mg PO BID [facility] Last Admin: 01/23/22 12:41 Dose: 50 mg Naloxone HCl (Naloxone 0.4 Mg/Ml 1 Ml Vial) 0.2 mg IV Q2M PRN PRN Reason: Opioid Reversal Ondansetron HCl (Ondansetron 4 Mg/2 Ml Vial) 4 mg IVP Q8HR PRN PRN Reason: Nausea And Vomiting Last Admin: 01/23/22 16:11 Dose: 4 mg Oxycodone/Acetaminophen (Oxycodone-Apap 7.5-325mg 1 Each Tab) 1 each PO Q6HR PRN PRN Reason: Pain Last Admin: 01/21/22 07:14 Dose: 1 each Pantoprazole Sodium (Pantoprazole 40 Mg Tablet) 40 mg PO AC-[id number] [facility] Last Admin: 01/23/22 12:29 Dose: Not Given Potassium Chloride (Potassium Chloride Er 10 Meq Tab.Er.Prt) 10 meq PO DAILY [facility] Last Admin: 01/23/22 12:29 Dose: Not Given On examination: VITAL SIGNS: [98.2, 100, 18, 132.85, 93% room air] GENERAL APPEARANCE: Laying in bed, awake, not in distress HEENT: Normal external appearance of nose and ear. Oral cavity normal EYES: Pupils equal. Conjunctiva normal. NECK: JVD not raised. Mass not palpable. RESPIRATORY: Respiratory effort normal. Lungs clear to auscultation. CARDIOVASCULAR: First and second sounds normal. No edema. ABDOMEN: Soft. Liver and spleen not palpable. No tenderness. No mass palpable. PSYCHIATRY: Alert and oriented x3. Mood and affect normal. INVESTIGATIONS, reviewed in the clinical context: White count 8 hemoglobin 14.3 platelets 238 potassium 4.5 creatinine 0.7 MRI brain and C-spine with and without contrast: White matter changes and periventricular region. Most likely chronic microvascular ischemic changes. Tobacco lumbar spine MRI with and without contrast: Some cord edema due to expansile T10 lesion causing posterior T10 1 to be bony margin bulging. Add joining findings suggestive may be metastatic disease Assessment and plan: -Acute on chronic low back pain with T10 compression fracture with possible metastatic lesion.: Slow to respond Pending surgery -Newly diagnosed lung mass/nodule. possible Pulmonary primary. Patient had PET scan and CT chest recently. Follow with pulmonary -Morbid obesity BMI 42.1 Weight loss measures DVT prophylaxis.
[2022-01-23 19:21] LABS: Glucose,Whole Blood 86 mg/dL (75-99)
[2022-01-23] MEDS ORDERED: METOPROLOL TARTRATE 25 MG TAB PO SCH (21:00)
[2022-01-23] MEDS ORDERED: VANCOMYCIN 1,000 MG VIAL MISCELLANE ONE (21:20)
[2022-01-23 22:49] LABS: Glucose,Whole Blood 114 mg/dL (75-99)
[2022-01-23] MEDS ORDERED: propofoL 100 ML IV ONE (22:54)
--- NOTE | 2022-01-23 23:18 | P.PN ---
Progress Note - Text Progress Note Date: 01/23/22 Breif Post op: Pt s/e in ICU. Vented, sedated but waking up. Doing OK, VSS. Team at bedside. New art line being placed. No other issues. Seen moving all 4 ext when he became light on sedation. MAP goals 80 over night Pain control TEDs/SCDs CT in the AM after extubation SBT in the AM per ICU OK for HOB 30 deg Record Drain out
[2022-01-23 23:56] LABS: ABG Base Excess 1.1 mmol/L; ABG HCO3 27 mmol/L (21-25); ABG PCO2 49 mmHg (35-45); ABG PH 7.35 (7.35-7.45); ABG PO2 257 mmHg (83-108); ABG TCO2 28 mmol/L (19-24); Allen Test Performed? Yes
[2022-01-24 04:21] LABS: Basophils % (A) 0 %; Eosinophils % (A) 0 %; HGB 13.5 gm/dL (13.0-17.5); Hypochromasia Marked; Lymphocytes # (A) 0.5 k/uL (1.0-4.8); Lymphocytes % (A) 5 %; MCH 26.1 pg (25.0-35.0); MCHC 30.1 g/dL (31.0-37.0); MCV 86.9 fL (80.0-100.0); Mean Platelet Volume 8.1; Monocytes # (A) 0.2 k/uL (0-1.0); Monocytes % (A) 2 %; Neutrophils # (A) 10.2 k/uL (1.3-7.7); Neutrophils % (A) 92 %; Platelet Count 207 k/uL (150-450); RBC 5.17 m/uL (4.30-5.90); RDW 15.8 % (11.5-15.5)
[2022-01-24 04:35] LABS: Potassium 4.5 mmol/L (3.5-5.1)
[2022-01-24 04:36] LABS: ALT 25 U/L (4-49); AST 36 U/L (17-59); African American GFR (CKD) >90 (>60 ml/min/1.73 sqM); Albumin 2.9 g/dL (3.5-5.0); Alkaline Phosphatase 89 U/L (38-126); Anion Gap 8 mmol/L; Blood Urea Nitrogen 17 mg/dL (9-20); Calcium 8.4 mg/dL (8.4-10.2); Carbon Dioxide 24 mmol/L (22-30); Chloride 99 mmol/L (98-107); Glucose 129 mg/dL (74-99); Non-African American GFR(CKD) 87 (>60 ml/min/1.73 sqM); Sodium 131 mmol/L (137-145); Total Protein 6.2 g/dL (6.3-8.2)
[2022-01-24] MEDS: SODIUM CHLORIDE 0.9% 1,000 ML IV SCH ×2 (05:01→16:22)
[2022-01-24 05:23] LABS: ABG Base Excess 3.2 mmol/L; ABG HCO3 28 mmol/L (21-25); ABG Oxygen Saturation 95.3 % (94-97); ABG PCO2 46 mmHg (35-45); ABG PO2 75 mmHg (83-108); ABG TCO2 29 mmol/L (19-24); Allen Test Performed? Yes
[2022-01-24] MEDS: HYDROmorphone 1 MG/ML 1 ML SYRINGE IVP PRN ×2 (06:34→12:19)
[2022-01-24] MEDS: METHADONE 5 MG TAB PO SCH ×2 (06:37→16:21)
[2022-01-24] MEDS: PANTOPRAZOLE 40 MG TABLET PO SCH ×2 (07:11→09:15)
--- NOTE | 2022-01-24 07:53 | XR ---
EXAMINATION TYPE: XR chest 1V portable DATE OF EXAM: 01/24/2022 COMPARISON: Chest x-ray 11/10/2013, PET/CT 01/08/2022 HISTORY: Intubated TECHNIQUE: Single frontal view of the chest is obtained. FINDINGS: Endotracheal tube and NG tube are overlying appropriate positions, distal tip of the NG tu be is not included on the exam however. There is a right jugular central venous catheter, distal tip near the cavoatrial junction level. Patient's lung nodules ot well seen. Artifacts are present. Posto p changes noted to the thoracolumbar spine. Interstitium is increased. No evident pneumothorax or ple ural effusion. Heart appears enlarged although exam is supine. Right costophrenic angle not included on exam, patient rotated. Lung volumes are low. IMPRESSION: There may be component of interstitial edema. Expiratory exam, suspect borderline cardio megaly may be attributed to technique. Additional findings above.
[2022-01-24] MEDS: IPRATROPIUM-ALBUTEROL 3 ML NEB INHALATION SCH ×4 (07:54→20:06)
--- NOTE | 2022-01-24 07:59 | FL ---
Fluoroscopy HISTORY: Spinal fusion 44 seconds fluoroscopy time supplied to the referring clinician. 8 intraoperative C-arm images docum ent the procedure. See dictated report from orthopedic surgery.
--- NOTE | 2022-01-24 07:59 | XR ---
EXAMINATION TYPE: XR lumbar spine 2 or 3V DATE OF EXAM: 01/23/2022 COMPARISON: NONE HISTORY: Posterior spinal fusion Fluoroscopy support supplied to the referring clinician. See dictated report from orthopedic surgery , 8 intraoperative C-arm images, 44 seconds fluoroscopy time supplied to the referring clinician
[2022-01-24] MEDS ORDERED: FUROSEMIDE 10 MG/ML 2 ML VIAL IV ONE (08:18)
[2022-01-24] MEDS: GABAPENTIN 300 MG CAP PO SCH ×3 (09:15→21:21)
[2022-01-24] MEDS: POTASSIUM CHLORIDE ER 10 MEQ TAB.ER.PRT PO SCH (09:16)
[2022-01-24] MEDS: FUROSEMIDE 20 MG TAB PO SCH (09:16)
[2022-01-24] MEDS: CYCLOBENZAPRINE 10 MG TAB PO SCH ×3 (09:16→21:20)
[2022-01-24] MEDS: CHLORHEXIDINE GLUCONATE 15 ML CUP MUCOUS MEM SCH ×2 (09:16→21:33)
[2022-01-24] MEDS: METOPROLOL TARTRATE 50 MG TAB PO SCH ×2 (09:17→21:19)
[2022-01-24] MEDS: oxyCODONE-APAP 7.5-325MG 1 EACH TAB PO PRN ×2 (09:52→21:20)
--- NOTE | 2022-01-24 10:50 | P.PN ---
Subjective Progress Note Date: 01/24/22 Principal diagnosis: Acute on chronic intractable lower back pain 71-year-old male patient referred to me for a pulmonary nodule with a concern of underlying malignancy. This is a morbidly obese white male patient who is quite debilitated due to chronic back problems and arthritis. The patient has been living independently and [place] and he has been very limited in terms of his exercise capacity due to chronic back pain. Currently is taking methadone as maintenance for chronic back pain and takes [place] on an as-needed basis. He moves around with help of a walker. Despite his limitations due to his obesity and his chronic back pain, the patient has been able to live independently. Denies having any respiratory difficulties. No reported cough sputum production chest tightness or wheezing. No hemoptysis. Recently, he had his dog jump on his chest which she thought caused some injury to his thoracic cage. He was complaining of pain and further investigation was done including a a CT that was done on 11/17/2021 that showed a lobulated spiculated 1.7 cm nodule in the right lung base, 7 mm pulmonary nodule in the right lower lobe and a 6 mm nodule in the right minor fissure.there was also evidence of centrilobular emphysema in the upper lobes and dependent atelectatic changes. This was followed up by a PET/CT that was done on 01/08/2022 and the PET scan showed increased FDG activity within the 1.7 cm nodule in the right lung base with an SUV of 9.54. In addition, there was a right hilar lymph node with a maximum SUV of 23. No abdominal metabolic activity within the abdomen. No activity within the pelvis. In terms of the bony structures, there was a metastatic deposit in the sternum with a maximum SUV of 16.06 and another T1 vertebral body lesion on the left and some metastatic deposits extending from T10 through L4 vertebral bodies. The findings were compatible with metastatic lung cancer and the patient was referred to me accordingly. There was some vague activity in the right parotid gland also. The patient is an ex-smoker. He has worked for the automotive industry in the past. this patient is morbidly obese. Denies having obstructive sleep apnea. He has chronic venous stasis and chronic edema lower extremities along with some chronic skin ulceration the legs for which she is doing wound care. No altered mentation. No headaches. He has exertional dyspnea. No dyspnea at rest. No angina. No palpitation. No cardiac arrhythmias. No recurrent pneumonias. No recurrent bronchitis and no history of any DVT or pulmonary embolism. . . No reported history of change in his voice quality, hoarseness, or hemoptysis. The patient doesn't utilize any form of respiratory medications or inhalers. He been on Lasix regarding his chronic lower extremity edema. I saw this patient my office on 01/17/2022 and I was planning to proceed with a lung biopsy. After the patient left my office, the patient became weak in the lower extremities to the point where he collapsed and he was unable to walk. The patient's stated that he had also some chronic back pain and was progressively getting more weak. He also reported some tingling in lower extremity is bilaterally. He had good strength in his upper extremities. No loss in the bowel and bladder control. Based on that, he presented himself to the MRSA problem and the patient's underwent further investigation. CAT scan of the lumbar spine was done and it showed facet arthrosis at the level of L4-L5 and L5-S1 which is moderate to severe in nature along with lumbar lordosis. The level of T10, there is a fracture which has the features of a pathologic fracture and there is a lytic bony destruction noted anteriorly within the vertebral body that tracks down into the pedicles. There is also retropulsion of the posterior body wall into the spinal canal. The patient was seen by spine surgery. There was a concern for the posterior column involvement and potentially stability of the spine. There was also an anterior largest synthetic changes of the adjacent segments. There was also an L1 vertebral body lesion and other lytic foci at the level of T12. Based on all this, the patient is being considered for surgical stabilization of the spine. This may be an opportunity also to establish tissue diagnosis of this patient. For now, the patient on Decadron. He is resting, comfortably in bed. No [place] shortness of breath. Note that his FEV1 was also low in the spirometry. In my office showed a combination of obstructive and restrictive physiology. His FEV1 was in order of 32% of predicted. 01/20/2022, the patient is comfortable. No worsening shortness of breath. The patient is going to undergo an MRI of the brain. Echocardiogram showed normal LV function. The tentative plan is to proceed with surgery by next week. 01/21/2022, no new complaints and the patient underwent MRI of the brain and C- spine that showed no evidence of any metastases. Still weak in lower extremities. He remains on Decadron. Awaiting surgery next week 01/22/2022, no new complaints and the patient is going to undergo surgery tomorrow. Respiratory status is borderline is stable as the patient is known to have COPD with significant impairment in the FEV1. This obviously would put him on an increased risk of developing postoperative pulmonary complications. The patient is a normal LV function. Hemodynamically stable. Pulse ox is 92% on room air oxygen. On 01/23/2022 patient seen in follow-up on medical oncology floor. He is awake alert, in no acute distress, is lying flat in bed, with head of the bed up at 15-20, does not appear to be in any acute distress, denies any shortness of breath, no chest pain no cough, no wheezing. Room air pulse ox is 93%, his been afebrile. Lung sounds are clear, diminished at the bases. Remains on DuoNeb, COPD seems to be stable. His thoracic spine CT lung windows showed small amount of bilateral pleural effusions and this was on 01/19/2022. Today's labs have been reviewed, white count is normal at 8.0, hemoglobin is 14.3, sodium is 133, the rest of the electrolytes and renal profile are unremarkable. Vital signs have been stable, no fever or chills. Patient is scheduled for surgery today with stabilization, and tissue diagnosis to rule out possibility of metastatic cancer possibly lung primary On 01/24/2022 patient is seen in follow-up in the intensive care unit. Patient is status post T7 to L1 stabilization with decompression and tumor biopsy on 01/23/[address] Moreno, today's postoperative day #1. Following his surgery patient remained intubated on mechanical ventilatory support overnight, and was admitted to the intensive care unit. This morning she remains sedated, on mechanical ventilator, on assist control with a rate of 18, tidal 500, FiO2 of 40% and PEEP of 5, this morning's blood gas shows pO2 of 75, pCO2 46, and pH of 7.40. His chest x-ray today shows a component of interstitial edema, but this was expiratory exam, with suspected borderline cardiomegaly. And low lung volumes. Patient is currently on 0.9 normal saline at a rate of 75 ML per hour, and improving and is at 35 mics per kilo per minute, has not been started on tube feedings as, today's labs have been reviewed showing white blood cell count of 11.0, hemoglobin of 13.5, platelet count of 207, sodium is 131, depressive electrolytes and renal profile were unremarkable. LFTs were unremarkable. No acute events overnight, patient has received a dose of vancomycin per orthopedic surgery. He remains on all of his cardiac medications including oral diuretics, Lopressor 50 mg twice daily, he is on his maintenance dose of methadone, Percocet, and has IV Dilaudid available for breakthrough pain. No acute issues overnight. Patient is opening eyes to voice, and following simple commands. Appears to be in no acute distress, we will proceed with sedation holiday, and weaning trials with a goal of extubation Objective - Vital Signs Vital signs: Vital Signs Temp 98 F 01/24/22 08:00 Pulse 81 01/24/22 10:00 Resp 11 L 01/24/22 10:00 BP 134/79 01/24/22 10:00 Pulse Ox 97 01/24/22 10:00 FiO2 40 01/24/22 08:00 Intake & Output 01/23/22 01/24/22 01/24/22 18:59 06:59 18:59 Intake Total 3100 1375.000 300 Output Total 1000 1680 900 Balance 2100 -305.000 -600 Intake: IV 2500 1275 300 Sodium Chloride 0.9% 1, 375 300 000 ml @ 75 mls/hr IV . [id number] [facility]STIAN Rx#:[id number] Intake, IV Titration 600 100.000 Amount Sodium Chloride 0.9% 1, 600 000 ml @ 75 mls/hr IV . [id number] [facility]STIAN Rx#:[id number] propofoL 1,000 mg In 100.000 Empty Bag 1 bag @ 5 MCG/ KG/MIN 4.355 mls/hr IV . [id number] [facility]STIAN Rx#:[id number] Output: Drainage 80 Right Back 80 Urine 1000 1100 900 Estimated Blood Loss 500 Other: Voiding Method Indwelling Catheter Indwelling Catheter Indwelling Catheter ABP, PAP, CO, CI - Last Documented Arterial Blood Pressure 0/0 - Exam GENERAL EXAM: 71-year-old white male, intubated, sedated, arouses to voice, opens eyes, follows simple commands HEAD: Normocephalic/atraumatic. EYES: Normal reaction of pupils, equal size. Conjunctiva pink, sclera white. NOSE: Clear with pink turbinates. THROAT: No erythema or exudates. NECK: No masses, no JVD, no thyroid enlargement, no adenopathy. CHEST: No chest wall deformity. Symmetrical expansion. LUNGS: Equal air entry with no crackles, wheeze, rhonchi or dullness. CVS: Regular rate and rhythm, normal S1 and S2, no gallops, no murmurs, no rubs ABDOMEN: Soft, nontender. No hepatosplenomegaly, normal bowel sounds, no guarding or rigidity. EXTREMITIES: No clubbing, no edema, no cyanosis, 2+ pulses and upper and lower extremities. MUSCULOSKELETAL: Muscle strength and tone normal. SPINE: No scoliosis or deformity, back incision from the level of T7 to L1, not examined SKIN: No rashes CENTRAL NERVOUS SYSTEM: Sedated but arousable to voice and follows simple command. No focal deficits, tone is normal in all 4 extremities. - Labs CBC & Chem 7: 01/24/22 03:31 01/24/22 03:31 Labs: Abnormal Lab Results - Last 24 Hours (Table) 01/23/22 01/23/22 01/24/22 Range/Units 22:47 23:54 03:31 WBC 11.0 H (3.8-10.6) k/uL MCHC 30.1 L (31.0-37.0) g/dL RDW 15.8 H (11.5-15.5) % Neutrophils # 10.2 H (1.3-7.7) k/uL Lymphocytes # 0.5 L (1.0-4.8) k/uL ABG pCO2 49 H (35-45) mmHg ABG pO2 257 H (83-108) mmHg ABG HCO3 27 H (21-25) mmol/L ABG Total CO2 28 H (19-24) mmol/L ABG O2 Saturation 100.0 H (94-97) % Sodium (137-145) mmol/L Glucose (74-99) mg/dL POC Glucose (mg/dL) 114 H (75-99) mg/dL Total Protein (6.3-8.2) g/dL Albumin (3.5-5.0) g/dL 01/24/22 01/24/22 Range/Units 03:31 05:20 WBC (3.8-10.6) k/uL MCHC (31.0-37.0) g/dL RDW (11.5-15.5) % Neutrophils # (1.3-7.7) k/uL Lymphocytes # (1.0-4.8) k/uL ABG pCO2 46 H (35-45) mmHg ABG pO2 75 L (83-108) mmHg ABG HCO3 28 H (21-25) mmol/L ABG Total CO2 29 H (19-24) mmol/L ABG O2 Saturation (94-97) % Sodium 131 L (137-145) mmol/L Glucose 129 H (74-99) mg/dL POC Glucose (mg/dL) (75-99) mg/dL Total Protein 6.2 L (6.3-8.2) g/dL Albumin 2.9 L (3.5-5.0) g/dL Microbiology - Last 24 Hours (Table) 01/23/22 23:02 Sputum Culture - Preliminary Sputum Assessment and Plan Plan: Assessment: #1. chronic lower back pain related to suspected pathologic fracture of the level of T10 with unstable spine. Patient complained of weakness and radiculopathy bilaterally, patient had metastatic foci at the level of L1 spine on the PET scan, MRI of the C-spine and the brain was negative for metastasis. Patient is status post surgical stabilization of T7 through L1 and tumor biopsy of spine on 01/23/[address] Moreno #2. Routine postoperative ventilator management, patient remained on mechanical ventilator after surgery overnight, successfully weaned and extubated today on 01/24/2022 on postoperative day #1 #3. Lung mass/lung nodule, CT scan of the chest and the PET scan revealed a 1.7 cm right lower lobe pulmonary nodule with increased uptake on the PET scan an SUV of 9.54, and a right hilar lymph node with an SUV of 23. Patient also had intense uptake within the sternum with SUV of 16.06, besides these findings were highly suspicious for metastatic lung cancer. #4. History of COPD, advanced, stage III E. on FEV1 of 32% of predicted at baseline, patient has a combination of obstructive and restrictive pulmonary physiology related to morbid obesity and history of COPD #5. Morbid obesity with BMI 42.2 kg/m #6. Stasis dermatitis of bilateral lower extremities related to chronic peripheral venous hypertension with secondary ulcerations #7. Chronic back pain Plan: Patient was examined at the bedside, labs blood gases chest x-ray was reviewed We'll give the patient 1 dose of IV Lasix 20 mg Patient had satisfactory weaning parameters, with spontaneous tidal labs of 500- 700, respiratory rate of 12, minute ventilation of 8.5, and if -50, Iris PI 21, vital capacity of 1.5 L, positive cuff leak Was extubated, tolerating extubation well Provide incentive spirometer, instructed patient on the use Maintain pain control Antibiotics per orthopedic surgery GI and DVT prophylaxis Continue breathing treatments We'll continue to follow I have personally seen and examined the patient, performed the documentation and the assessment and plan as written. Number of minutes spent on the visit: [15] Time with Patient: Greater than 30
--- NOTE | 2022-01-24 12:53 | P.PN ---
Subjective Progress Note Date: 01/24/22 Principal diagnosis: Status post T8-T12 decompression with posterior lateral stabilization, tumor resection Patient was evaluated today, he is resting in the hospital bed in the ICU unit. Patient was extubated and is currently doing very well. Patient states that he notices significant improvement in his back pain. He is moving his legs very well at this time. He currently is denying any numbness or tingling in the lower extremities. He denies any numbness or tingling of the upper extremities. He denies any numbness and tingling of the genital or perineal region. Urinary catheter still remains in place. Patient is being followed by multiple medical specialties at this time. Objective - Vital Signs Vital signs: Vital Signs Temp 97.9 F 01/24/22 12:00 Pulse 81 01/24/22 12:00 Resp 15 01/24/22 12:00 BP 132/72 01/24/22 12:00 Pulse Ox 91 L 01/24/22 12:00 FiO2 40 01/24/22 12:00 Intake & Output 01/23/22 01/24/22 01/24/22 18:59 06:59 18:59 Intake Total 3100 1375.000 450 Output Total 1000 1680 1900 Balance 2100 -305.000 -1450 Intake: IV 2500 1275 450 Sodium Chloride 0.9% 1, 375 450 000 ml @ 75 mls/hr IV . [id number] KRISTIAN Rx#:[id number] Intake, IV Titration 600 100.000 Amount Sodium Chloride 0.9% 1, 600 000 ml @ 75 mls/hr IV . [id number] KRISTIAN Rx#:[id number] propofoL 1,000 mg In 100.000 Empty Bag 1 bag @ 5 MCG/ KG/MIN 4.355 mls/hr IV . [id number] KRISTIAN Rx#:[id number] Output: Drainage 80 Right Back 80 Urine 1000 1100 1900 Estimated Blood Loss 500 Other: Voiding Method Indwelling Catheter Indwelling Catheter Indwelling Catheter ABP, PAP, CO, CI - Last Documented Arterial Blood Pressure 0/0 - Exam Gen: AOx3, NAD VSS stable at this time Integument: Dressing is in good position and condition, the drain site is clean and dry at this time. 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 strength appreciated to bilateral lower extremities with hip flexion, knee extension, knee flexion 55 strength appreciated bilateral lower extremities with plantar flexion, dorsiflexion, EHL, FHL Reflexes: 2/4 in all UE and LE Negative Doni's bilaterally Negative Babinski bilaterally Negative clonus bilaterally Special Test: Negative straight leg raise bilaterally - Labs CBC & Chem 7: 01/24/22 03:31 01/24/22 03:31 Labs: Abnormal Lab Results - Last 24 Hours (Table) 01/23/22 01/23/22 01/24/22 Range/Units 22:47 23:54 03:31 WBC 11.0 H (3.8-10.6) k/uL MCHC 30.1 L (31.0-37.0) g/dL RDW 15.8 H (11.5-15.5) % Neutrophils # 10.2 H (1.3-7.7) k/uL Lymphocytes # 0.5 L (1.0-4.8) k/uL ABG pCO2 49 H (35-45) mmHg ABG pO2 257 H (83-108) mmHg ABG HCO3 27 H (21-25) mmol/L ABG Total CO2 28 H (19-24) mmol/L ABG O2 Saturation 100.0 H (94-97) % Sodium (137-145) mmol/L Glucose (74-99) mg/dL POC Glucose (mg/dL) 114 H (75-99) mg/dL Total Protein (6.3-8.2) g/dL Albumin (3.5-5.0) g/dL 01/24/22 01/24/22 Range/Units 03:31 05:20 WBC (3.8-10.6) k/uL MCHC (31.0-37.0) g/dL RDW (11.5-15.5) % Neutrophils # (1.3-7.7) k/uL Lymphocytes # (1.0-4.8) k/uL ABG pCO2 46 H (35-45) mmHg ABG pO2 75 L (83-108) mmHg ABG HCO3 28 H (21-25) mmol/L ABG Total CO2 29 H (19-24) mmol/L ABG O2 Saturation (94-97) % Sodium 131 L (137-145) mmol/L Glucose 129 H (74-99) mg/dL POC Glucose (mg/dL) (75-99) mg/dL Total Protein 6.2 L (6.3-8.2) g/dL Albumin 2.9 L (3.5-5.0) g/dL Microbiology - Last 24 Hours (Table) 01/23/22 23:02 Gram Stain - Preliminary Sputum Sputum Culture - Preliminary Assessment and Plan Assessment: Postoperative day #1 status post T8-T12 decompression with posterior lateral stabilization, tumor resection Bilateral lower extremity radiculopathy Bilateral lower extremity weakness Plan: Pain control, continue with current oral and IV medication as needed DVT prophylaxis, will start subcu medication today Dressing instructions, leave current foam dressing in place along with drain. We'll continue monitoring drain output, likely remove in the next 2-3 days Activity level and restrictions, no lifting, bending or twisting. Prescription for a TLSO brace will be ordered, patient can get up with assistance and use of a walker to ambulate without brace at this time PT/OT evaluation Encourage incentive spirometer Await final pathology report Other medical specialty recommendations appreciated Further recommendations Time with Patient: Less than 30
--- NOTE | 2022-01-24 13:06 | P.OP ---
Date of Procedure: 01/23/22 Preoperative Diagnosis: 71 yo male mid/low back pain, severe, with pathological fracture T10 AO type B2/A4 burst LE radiculopathy b/l LE weakness b/l L1 lytic foci Left Lung lobe nodule complex medical patient Postoperative Diagnosis: 71 yo male mid/low back pain, severe, with pathological fracture T10 AO type B2/A4 burst LE radiculopathy b/l LE weakness b/l L1 lytic foci Left Lung lobe nodule complex medical patient Procedure(s) Performed: 1. Posterior midline approach to Thoracic spine 2. T9-T11 laminectomy for biopsy and excision of intraspinal neoplasm, extradural, thoracic (36846) 3. Trans pedicular approach T10 with decompression of spinal cord and nerve roots, Throacic (54822) 4. Posterior segmental instrumentation T8-T12 (99504) 5. Intralesional excision of tumor T10 with cementation T10 vertebral body (58334) 6. Open reduction and internal fixation of T10 pathological fracture (70513) 7. Arthrodesis posteriolateral T8-T12 (35539) 8. Use of [employer] intraoperative 3D navigation for screw placement (49925) 9. Use of intraoperative neuro monitoring 10. Interpretation of intraoperative flouroscopy <1 hr. (27863) Implants: -Harish Franklin screws cannulated and non -Harish cement -MagnatOs -Allograft for spine surgery Anesthesia: GETA Surgeon: Brendan Moreno New Car Make Ready Worker #1: Juni Lee (Was present and assisted for the entire case from positioning to hardware placement, decompression, closure and dressing. 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 It was my pleasure to have seen and examined Yamil. In our visit today we have had a chance to go over subjective complaints, physical examination findings and treatments including the natural course history without intervention and various interventional options. The patients imaging demonstrates T10 pathological fracture with lytic focus as well as extradural tumor extension causing severe stenosis T9-11 region. On physical exam, Yamil demonstrates Severe back pain with any motion, inability to ambulate due to this as well as b/l LE radiculopathy and new weakness. I have explained to the patient that as their condition progresses it will cause further neurological deficits and eventual paralysis. Based on the patients imaging, physical exam, and the rapid progression and disabling nature of their symptoms, at this time I recommend surgery in the form or a: Possible T7, T8-T12 possible L1 stabilization with decompression, biopsy and resection. I discussed the risk and benefits of this procedure at length with Yamil. The patient his daughter and son agreed to considered pursuing the procedure abovementioned. Prior to surgery, she should follow up with her PCP (Cardio, ID, IM etc) for clearance. Questions were invited and answered, and the patient wishes to proceed as outlined below. Currently, I am recommendin. T8-12 stabilization with decompression, biopsy of T10 and resection of tumor 2. Follow up with PCP for surgical clearance 3. Review of surgical risks and benefits as well as an educational packet on the proposed surgical procedure. Risks: All surgical procedures come with inherent risks, including those related to positioning, anesthesia, intraoperative findings, and postoperative complications. It is important to understand that surgery does not come with any guarantee of a successful outcome as complications and adverse events are always possible. The patient was given a handout in office today discussing the surgical procedure and risks associated with the intervention, both of which were discussed with the patient. These risks include but are not limited to the following: * Experiencing same, different or even worse symptoms in back, neck, arms, or legs compared to before surgery. * Requiring further surgery or other forms of treatment presently or at some time in the future at same or other levels of the intended spine surgery. * On an extreme but fortunately relatively rare basis severe complication such as blindness, stroke, heart attack, temporary and/or permanent nerve injury, paralysis, coma, or may occur, sometimes without known explanation. * Surgical complications may include but are not limited to risk of infection, fluid accumulation in the surgical dissection site, including a seroma or hematoma, that requires additional surgery, wound drainage, bleeding, new numbness or weakness, vision changes/loss, spinal fluid leakage, non-healing and/or infected incision, headaches, difficulty or inability to s wallow, hoarseness, hemopneumothorax, pneumothorax, impotence, retrograde ejaculation, vaginal dryness; injury to nerves, spinal cord, blood vessels, lymphatics or other vital organs (i.e., bowel injury, injury to the great vessels); heterotopic bone formation; complications related to the hardware such as screws, rods, cages including misplaced hardware, device failure, instrumentation at the wrong spine level, hardware fracture/breakage, or hardware loosening; vertebral failure of the spinal column above or below the newly placed hardware; retained surgical instrumentations or devices and the need for further surgery. * Medical risks of the planned spine surgery include but are not limited to generalized Infections to the whole body or local areas outside of the surgical site (sepsis), heart attack, bleeding, anaphylaxis, meningitis, seizure, epilepsy, hearing loss, burn davila, laceration of the head or other areas of the body, bruising, hypersensitivity of the skin, bladder over distension; allergic reaction; shoulder injury related to positioning; fat, blood and air clots to other areas of the body like heart, lungs, brain; failure of internal organs such as lungs, kidneys, liver and excessive bleeding. If blood transfusions are necessary, note that transfusions may cause intolerance reactions such as anaphylaxis or other complex reactions. * Despite best efforts, the results of spine surgery might not heal in terms of bone, soft tissues such as skin, fascia, ligaments, and joints. Additionally, in order to achieve best possible results, spine surgery may be carried out beyond the initially planned levels and involve decompression, fusion including insertion of hardware at levels other than the original intended area of surgical interest change some portions of the procedure in order to ensure the best possible outcomes. * With spine surgery and spinal fusion, there are different off label uses of instrumentation (devices, implants and hardware) as well as biological substances (bone morphogenic proteins, demineralized bone matrix) as well as using extra bone from allograft sources (i.e. cadaver bone) or autograft (iliac crest bone, ribs, or the spine itself). The patient has been given information about these practices and their inherent risks and benefits. The patient has had a chance to review all the listed information, has been given print outs detailing this information, and has had all his/her questions answered to their satisfaction. It was my pleasure to have seen and examined Yamil López. In our visit today we have had a chance to go over my understanding of our patient's current condition, the natural course history without intervention and various interventional options. Questions were invited and answered, and the patient wishes to proceed as outlined above. I have seen and examined the patient for 25 minutes and we have spent more than 50% of the time in repeat and detailed counseling about the patient's condition, its natural course history with out and as much as can be predicted with surgery and re-review of various surgical treatment options. In conclusion, Yamil López and his daughter and son requested we proceed with the above suggested surgery and are willing to accept risks and limitations of the suggested surgery as nature of the disease process and our best attempts at treatment for the condition. Thank you again for allowing us to be part of your patient's care. Please don't hesitate to contact me if you have any further questions. Signed and authenticated by: Brendan Segundo [facility] [address] [place] [id number] Description of Procedure: The patient was seen and examined in the preoperative area. All preoperative protocols were followed. Informed consent was obtained risks and benefits of the procedure were discussed at length. Risks including bleeding infection dam age to the surrounding tissue and risk of reoperation were discussed with the patient. Risk of anesthesia up to and including was a discussed with the patient. These are outlined in the risk review. They were willing to accept these risks and all of the risks of surgery. The patient was given a weight- based dose of antibiotics in the form of vancomycin weight-based dose. The patient was seen and evaluated by the anesthesia team who deemed them fit for surgery. The site was marked, the patient was willing to proceed with the procedure. The patient was transferred to the operative suite by the Department of anesthesia. They were then drifted off to sleep by the department anesthesia and GETA was performed. The patient tolerated this well. [Weaver catheter was placed by nursing staff, atraumatically]. Once confirmation of lines and ventilation the patient was transferred to a [prone Ajay table very carefully]. All bony prominences including wrists, elbows, axilla, chest, hips, and thighs, and feet were padded very well. Special attention was paid to the genitalia and these were padded accordingly. SCDs were placed on bilateral lower extremities and were connected. Arms were well padded and placed tucked at his side thumbs down well-padded. Once in position, again we confirmed good ventilation capabilities and that lines were running appropriately. The patien t's cervical thoracic lumbar spine was then exposed. 1010s were placed outlining the incision site. Standard alcohol was used to clean the incision site and allowed to dry. C-arm was used to biomark using a needle to localize the T10 vertebral body the patient and confirm level for incision which was marked with a skin marker. Operative briefing was performed with all teams and everyone in agreement to proceed. The patient was then prepped and draped in a normal sterile fashion. Timeout was then performed and all parties were in agreement with the procedure to be performed. Midline skin incision was made over the previously marked area and dissection taken down to the thoracic fascia which was identified over the spinous processes. Midline fasciotomy was then made and subperiosteal dissection taken down over the lamina and facet joints out to the transverse processes of T7 through L1. We confirmed our levels on lateral fluoroscopic imaging. We then performed laminectomy for biopsy of intraspinal lesion which was extradural using a high-speed bur at T10 remove the lamina in this fashion and then obtained tissue from the epidural space as well as the foramen and the vertebral body of T10 these were then sent for stat frozen pathologic reads. Then after this we proceeded with navigated placement of screws. The spinous processes clamp for the tracker for navigation was placed into T11 we then secured this into position and performed a 3-D C-arm intraoperative spin to acquire imaging. Once this was acquired we checked the accuracy of the navigation and it was accurate. We then proceeded with screw placement first at T8 using a navigated bur a facilities flight check pilot hole was made followed by a all-tap which was navigated we then used a ball probe feeler to ensure that we are within the 4 katz of the pedicle. A navigated car pick up driver was then used to place the screw in the same trajectory. Screws were then placed in this fashion bilaterally from T8 to T12 skipping T10 due to the disease. Once screws were placed they were tested and stable. We then proceeded under live lateral fluoroscopy to cement the chrome most cranial and caudal screws at T8 and T12 respectively this was done again under pulsed live lateral fluoroscopic imaging which showed good placement of cement without extravasation. AP images were then taken showing good placement of screws as well as cement. We then proceeded with further laminectomy of T9 through T11 to ensure wide laminectomy in this area. At this point pathology returned with a preliminary read on the tissue. 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 We then proceeded with transpedicular takedown at T10 high-speed bur was used to bur the pedicles from the inside out bilaterally around her was then used to remove these complete facetectomy was performed at T10-T11 as well as T9-T10 to expose the disc space above and below bilaterally. This allowed for complete decompression of the nerve and dura around this area. Anterior to the dura was noted that there was extreme intimacy of what appeared to be tumor material and tumor tissue with the dura which was unable to be removed from the dural tissue without damaging the dura itself. There is also intimate involvement of the left T10 nerve root which was cleaned of any tissue possible. There was again intimate involvement of tumorous tissue with this and unable to be from the tissue without undue harm to the area. We then proceeded with intralesional excision at T10 vertebral body using high-speed bur curettes suction and pituitary to remove the tumor from T10 vertebral body this was done bilaterally. Once the void had been created and tumorous tissue removed more samples were sent for permanent section of the T10 vertebral body. We then proceeded with placement of cement into this vertebral body void. Jamshidi's were placed into the vertebral body bilaterally and under pulsed lateral fluoroscopy cement was injected into this area until good fill of the T10 vertebral body and void had been achieved. There is no extravasation of cement and there was good fill of the void. We then used a flat down pusher to ensure that the cement was not putting pressure on the anterior dural sac as well as mold the cement anteriorly to create anterior column stability. We took an AP image to confirm good placement of cement and this confirmed it. We then sized and selected rods for the area these rods were then placed and secured with set screws the set screws were final tightened and the position performing open reduction and internal fixation of the fracture. We then placed 2 cross-links were then final tightened into position. We then decorticated posterior laterally with a high-speed bur. Once this was accomplished we copiously irrigated the wound with 6 L of normal sterile saline. Surgicel was then placed over the dura which was completely decompressed. We then placed a mixture of MagnatOs and allograft for spine surgery in the posterior lateral region. Surgicel was then placed over this. We then placed a deep drain and secured it with a stitch. Final fluoroscopic images were taken AP and lateral which confirmed good placement of the screws and good reduction of the fracture as well as decompression and stabilization. Then proceeded with layered closure #1 PDS was placed in the deep fascia in a [id number] fashion followed by 0 PDS in a simple fashion we then placed O PDS in the deep subcu tissue 2-0 PDS in the superficial subcu tissue and vinita in the skin. The wound edges approximated very well. The wound was then cleaned and dressed sterilely with operative foam dressing 4 x 4 and Tegaderm. The patient was transferred back to their hospital bed atraumatically. [Drain continued to hold suction and were in good position]. Patient was then awakened and extubated by the department of anesthesia having tolerated the procedure very well with no complications. They were transferred to the postoperative care unit in stable condition.
--- NOTE | 2022-01-24 13:41 | CT ---
EXAMINATION TYPE: CT thoracic spine wo con DATE OF EXAM: 01/24/2022 COMPARISON: 01/19/2022 HISTORY: S/P Thoracic Spine decompression with stabilization CT DLP: 1144.5 mGycm Automated exposure control for dose reduction was used. Contrast: None Technique: Axial images through the pulmonary thick sections. Reconstructed images in the coronal and sagittal plane. FINDINGS: Vertebroplasty is present T8, T10, T12 spondylosis is present. Vertebral body alignment appears prese rved. There is compression of T10. No new compression deformities are evident. Postsurgical changes are present with fixation of T8-T12. This causes beam hardening artifact in some limitation of evaluation. Note is made of a lytic area within the left pedicle of L1. Series 201 image 108 Other: Small right pleural effusion is present. IMPRESSION: 1. POSTSURGICAL CHANGES FROM THORACIC FIXATION T8-T12. 2. VERTEBROPLASTY THROUGH THE LYTIC AREA OF T10. THERE MAY BE AN ADDITIONAL LYTIC AREA IN THE LEFT NH OXIMAL PEDICLE OF L1.
[2022-01-24 14:38] VITALS: BMI 42.2
[2022-01-24] MEDS: HEPARIN SODIUM,PORCINE/PF 5,000 UNIT/0.5 ML SYRINGE SQ SCH (21:21)
--- NOTE | 2022-01-24 21:59 | P.PN ---
Progress Note - Text Progress Note Date: 01/24/22 Patient is a 71-year-old male with a known history of bowel resection and chronic back pain presents to ER with complaints of severe intractable back pain and almost fell to the ground because of severe back pain. Patient was found to have a destructive lesion at the T10 and also newly diagnosed pulmonary nodule with possible metastasis. 01/19/2022. Patient is currently lying in the bed. Still complains of back pain. Denies any complaints of numbness or tingling of the lower extremities. No bowel or bladder incontinence. Patient is on Weaver catheter currently. No fever no chills. No cough or sputum production. No headache or dizziness or lightheadedness. continued on dexamethasone 6 mg every 6 hourly. Also on Flexeril and Dilaudid and also on methadone 2.5 mg every 12. Laboratory showed WBC 6.6 hemoglobin 14.0 and platelets 192 Sodium 139 potassium 4.9 chloride 102 bicarb is 25.8 and BUN 17.0 and creatinine 0.8 and calcium 8.4. Pulmonary and orthopedic surgery is on board. Thoracic and lumbar spine CT showed some cord edema due to expansile T10 lesion causing posterior T10 vertebral body margin bulging. Lesion at the L1 level is less well impressive without spinal canal involvement. A 3 mm round intradural extramedullary suspected enhancing lesion superior L4 level is nonspecific but concerning for possible drop metastatic focus. 01/20/2022. Patient is currently lying in the bed. Awake alert and oriented x3. Currently on room air. No complaints of chest pain. Pain is fairly controlled with medications. Patient is scheduled for orthopedic surgery. 2D echocardiogram showed normal left ventricular size and systolic function. Mild TR and mild MR. Patient is undergoing CT head and cervical spine. Otherwise patient denies any cough or sputum production. No fever no chills. No nausea vomiting abdominal pain or diarrhea. 01/21/2022 Patient is currently resting in bed comfortably. Awake alert and oriented x3. Back pain is controlled. Patient is steroids and muscle relaxants and narcotic pain medications. No complaints of chest pain or worsening shortness of breath. No fever no chills. MRI of the brain, cervical MRI showed white matter changes in the periventricular region more likely related to chronic microvascular ischemic change. No abdominal enhancement or other changes to suggest metastatic disease is identified. Cardiology and pulmonary is on board and patient is scheduled for orthopedic surgery on Saturday. January 23: I assumed care of patient today. Laying in bed. Nothing by mouth. Pending surgery later this afternoon. No new issues. Back pain present. January 24: Patient underwent spinal surgery yesterday.T9-T11 laminectomy. Arthrodesis. Excision of intraspinal neoplasm. ICU: Laying in bed. Pain is controlled.. Liquid diet. Son is at the bedside. Hemovac in place Active Medications Acetaminophen (Acetaminophen Tab 325 Mg Tab) 650 mg PO Q6HR PRN PRN Reason: Mild Pain or Fever > 100.5 Albuterol/Ipratropium (Ipratropium-Albuterol 3 Ml Neb) 3 ml INHALATION RT-QID [facility] Last Admin: 01/24/22 20:06 Dose: 3 ml Chlorhexidine Gluconate (Chlorhexidine Gluconate 15 Ml Cup) 15 ml MUCOUS MEM BID [facility] Last Admin: 01/24/22 21:33 Dose: Not Given Cyclobenzaprine HCl (Cyclobenzaprine 10 Mg Tab) 10 mg PO TID [facility] Last Admin: 01/24/22 21:20 Dose: 10 mg Dexamethasone Sodium Phosphate (Dexamethasone Sod Phosphate 4 Mg/Ml 1 Ml Vial) 6 mg IVP Q6HR PRN PRN Reason: Nausea And Vomiting Furosemide (Furosemide 20 Mg Tab) 20 mg PO DAILY [facility] Last Admin: 01/24/22 09:16 Dose: 20 mg Gabapentin (Gabapentin 300 Mg Cap) 300 mg PO TID [facility] Last Admin: 01/24/22 21:21 Dose: 300 mg Heparin Sodium (Porcine) (Heparin Sodium,Porcine/Pf 5,000 Unit/0.5 Ml Syringe) 5,000 unit SQ Q12HR [facility] Last Admin: 01/24/22 21:21 Dose: 5,000 unit Hydromorphone HCl (Hydromorphone 0.5 Mg/0.5 Ml Syringe) 0.5 mg IVP Q3HR PRN PRN Reason: Moderate Pain Hydromorphone HCl (Hydromorphone 1 Mg/Ml 1 Ml Syringe) 1 mg IVP Q3HR PRN PRN Reason: Severe Pain Last Admin: 01/24/22 12:19 Dose: 1 mg Sodium Chloride (Saline 0.9%) 1,000 mls @ 75 mls/hr IV .[id number] [facility] Last Admin: 01/24/22 16:22 Dose: 75 mls/hr Propofol 1,000 mg/ IV Solution 100 mls @ 4.355 mls/hr IV .[id number] [facility]; Protocol Last Admin: 01/24/22 07:13 Dose: 35 mcg/kg/min, 30.482 mls/hr Methadone HCl (Methadone 5 Mg Tab) 2.5 mg PO Q12H [facility] Last Admin: 01/24/22 16:21 Dose: 2.5 mg Metoprolol Tartrate (Metoprolol Tartrate 50 Mg Tab) 50 mg PO BID [facility] Last Admin: 01/24/22 21:19 Dose: 50 mg Naloxone HCl (Naloxone 0.4 Mg/Ml 1 Ml Vial) 0.2 mg IV Q2M PRN PRN Reason: Opioid Reversal Ondansetron HCl (Ondansetron 4 Mg/2 Ml Vial) 4 mg IVP Q8HR PRN PRN Reason: Nausea And Vomiting Last Admin: 01/23/22 16:11 Dose: 4 mg Oxycodone/Acetaminophen (Oxycodone-Apap 7.5-325mg 1 Each Tab) 1 each PO Q6HR PRN PRN Reason: Pain Last Admin: 01/24/22 21:20 Dose: 1 each Pantoprazole Sodium (Pantoprazole 40 Mg Tablet) 40 mg PO AC-[id number] [facility] Last Admin: 01/24/22 09:15 Dose: 40 mg Potassium Chloride (Potassium Chloride Er 10 Meq Tab.Er.Prt) 10 meq PO DAILY [facility] Last Admin: 01/24/22 09:16 Dose: 10 meq On examination: VITAL SIGNS: 97.9, 85, 12, 18/55, 97% on 2 L] GENERAL APPEARANCE: Laying in bed, awake, comfortable. Hemovac in place. HEENT: Normal external appearance of nose and ear. Oral cavity normal EYES: Pupils equal. Conjunctiva normal. NECK: JVD not raised. Mass not palpable. RESPIRATORY: Respiratory effort normal. Lungs clear to auscultation. CARDIOVASCULAR: First and second sounds normal. No edema. ABDOMEN: Soft. Liver and spleen not palpable. No tenderness. No mass palpable. PSYCHIATRY: Alert and oriented x3. Mood and affect normal. INVESTIGATIONS, reviewed in the clinical context: January 24: White count 11 hemoglobin 13.5 platelets 207 potassium 4.5 creatinine 0.87 White count 8 hemoglobin 14.3 platelets 238 potassium 4.5 creatinine 0.7 MRI brain and C-spine with and without contrast: White matter changes and periventricular region. Most likely chronic microvascular ischemic changes. Tobacco lumbar spine MRI with and without contrast: Some cord edema due to expansile T10 lesion causing posterior T10 1 to be bony margin bulging. Add joining findings suggestive may be metastatic disease Assessment and plan: -Acute on chronic low back pain with T10 compression fracture with possible metastatic lesion.: January 23: Underwent laminectomy, excision of tumor. -Newly diagnosed lung mass/nodule. possible Pulmonary primary. Patient had PET scan and CT chest recently. Follow with pulmonary -Morbid obesity BMI 42.1 Weight loss measures -Stasis dermatitis of bilateral lower extremity secondary to chronic peripheral venous insufficiency. -COPD in a previous smoker. DuoNeb Continue current medication treatment plan. Pain control is good. Pending pathology. Discussed with patient and son at the bedside.
[2022-01-25] MEDS: METHADONE 5 MG TAB PO SCH ×2 (06:25→17:51)
[2022-01-25] MEDS: PANTOPRAZOLE 40 MG TABLET PO SCH (06:30)
[2022-01-25] MEDS: IPRATROPIUM-ALBUTEROL 3 ML NEB INHALATION SCH ×4 (07:46→20:11)
[2022-01-25] MEDS: CHLORHEXIDINE GLUCONATE 15 ML CUP MUCOUS MEM SCH (08:23)
[2022-01-25] MEDS: HEPARIN SODIUM,PORCINE/PF 5,000 UNIT/0.5 ML SYRINGE SQ SCH ×2 (08:26→20:29)
[2022-01-25] MEDS: GABAPENTIN 300 MG CAP PO SCH ×3 (08:27→20:30)
[2022-01-25] MEDS: CYCLOBENZAPRINE 10 MG TAB PO SCH ×3 (08:27→20:30)
[2022-01-25] MEDS: METOPROLOL TARTRATE 50 MG TAB PO SCH ×2 (08:27→20:30)
[2022-01-25] MEDS: FUROSEMIDE 20 MG TAB PO SCH (08:27)
[2022-01-25] MEDS: SODIUM CHLORIDE 0.9% 1,000 ML IV SCH (08:27)
[2022-01-25] MEDS: POTASSIUM CHLORIDE ER 10 MEQ TAB.ER.PRT PO SCH (08:27)
--- NOTE | 2022-01-25 09:21 | XR ---
EXAMINATION TYPE: XR chest 1V portable DATE OF EXAM: 01/25/2022 COMPARISON: 01/24/2022 HISTORY: Tube placement TECHNIQUE: Single frontal view of the chest is obtained. FINDINGS: Diffuse interstitial pattern with bilateral consolidation or pleural effusion. Surgical st aples and postsurgical change overlying vertebral column. ET and NG tube have been removed. Right-jonathan ed central line noted. IMPRESSION: Diffuse interstitial pattern with bilateral infiltrate and pleural effusion correlate fo r CHF otherwise considered interstitial pneumonia findings stable
[2022-01-25 09:49] LABS: Anisocytosis Slight; Basophils % (A) 0 %; Eosinophils # (A) 0.3 k/uL (0-0.7); Eosinophils % (A) 4 %; HCT 42.5 % (39.0-53.0); HGB 12.8 gm/dL (13.0-17.5); Hypochromasia Moderate; Lymphocytes # (A) 0.7 k/uL (1.0-4.8); Lymphocytes % (A) 8 %; MCHC 30.3 g/dL (31.0-37.0); MCV 85.9 fL (80.0-100.0); Monocytes # (A) 0.5 k/uL (0-1.0); Monocytes % (A) 6 %; Neutrophils # (A) 6.5 k/uL (1.3-7.7); Neutrophils % (A) 80 %; Platelet Count 221 k/uL (150-450); RBC 4.94 m/uL (4.30-5.90); WBC 8.1 k/uL (3.8-10.6)
[2022-01-25 09:58] LABS: African American GFR (CKD) >90 (>60 ml/min/1.73 sqM); Anion Gap 6 mmol/L; Blood Urea Nitrogen 18 mg/dL (9-20); Calcium 8.1 mg/dL (8.4-10.2); Carbon Dioxide 30 mmol/L (22-30); Chloride 100 mmol/L (98-107); Glucose 118 mg/dL (74-99); Non-African American GFR(CKD) 89 (>60 ml/min/1.73 sqM); Potassium 3.9 mmol/L (3.5-5.1); Sodium 136 mmol/L (137-145)
--- NOTE | 2022-01-25 10:42 | P.PN ---
Subjective Progress Note Date: 01/25/22 Principal diagnosis: Acute on chronic intractable lower back pain 71-year-old male patient referred to me for a pulmonary nodule with a concern of underlying malignancy. This is a morbidly obese white male patient who is quite debilitated due to chronic back problems and arthritis. The patient has been living independently and [place] and he has been very limited in terms of his exercise capacity due to chronic back pain. Currently is taking methadone as maintenance for chronic back pain and takes [place] on an as-needed basis. He moves around with help of a walker. Despite his limitations due to his obesity and his chronic back pain, the patient has been able to live independently. Denies having any respiratory difficulties. No reported cough sputum production chest tightness or wheezing. No hemoptysis. Recently, he had his dog jump on his chest which she thought caused some injury to his thoracic cage. He was complaining of pain and further investigation was done including a a CT that was done on 11/17/2021 that showed a lobulated spiculated 1.7 cm nodule in the right lung base, 7 mm pulmonary nodule in the right lower lobe and a 6 mm nodule in the right minor fissure.there was also evidence of centrilobular emphysema in the upper lobes and dependent atelectatic changes. This was followed up by a PET/CT that was done on 01/08/2022 and the PET scan showed increased FDG activity within the 1.7 cm nodule in the right lung base with an SUV of 9.54. In addition, there was a right hilar lymph node with a maximum SUV of 23. No abdominal metabolic activity within the abdomen. No activity within the pelvis. In terms of the bony structures, there was a metastatic deposit in the sternum with a maximum SUV of 16.06 and another T1 vertebral body lesion on the left and some metastatic deposits extending from T10 through L4 vertebral bodies. The findings were compatible with metastatic lung cancer and the patient was referred to me accordingly. There was some vague activity in the right parotid gland also. The patient is an ex-smoker. He has worked for the automotive industry in the past. this patient is morbidly obese. Denies having obstructive sleep apnea. He has chronic venous stasis and chronic edema lower extremities along with some chronic skin ulceration the legs for which she is doing wound care. No altered mentation. No headaches. He has exertional dyspnea. No dyspnea at rest. No angina. No palpitation. No cardiac arrhythmias. No recurrent pneumonias. No recurrent bronchitis and no history of any DVT or pulmonary embolism. . . No reported history of change in his voice quality, hoarseness, or hemoptysis. The patient doesn't utilize any form of respiratory medications or inhalers. He been on Lasix regarding his chronic lower extremity edema. I saw this patient my office on 01/17/2022 and I was planning to proceed with a lung biopsy. After the patient left my office, the patient became weak in the lower extremities to the point where he collapsed and he was unable to walk. The patient's stated that he had also some chronic back pain and was progressively getting more weak. He also reported some tingling in lower extremity is bilaterally. He had good strength in his upper extremities. No loss in the bowel and bladder control. Based on that, he presented himself to the MRSA problem and the patient's underwent further investigation. CAT scan of the lumbar spine was done and it showed facet arthrosis at the level of L4-L5 and L5-S1 which is moderate to severe in nature along with lumbar lordosis. The level of T10, there is a fracture which has the features of a pathologic fracture and there is a lytic bony destruction noted anteriorly within the vertebral body that tracks down into the pedicles. There is also retropulsion of the posterior body wall into the spinal canal. The patient was seen by spine surgery. There was a concern for the posterior column involvement and potentially stability of the spine. There was also an anterior largest synthetic changes of the adjacent segments. There was also an L1 vertebral body lesion and other lytic foci at the level of T12. Based on all this, the patient is being considered for surgical stabilization of the spine. This may be an opportunity also to establish tissue diagnosis of this patient. For now, the patient on Decadron. He is resting, comfortably in bed. No [place] shortness of breath. Note that his FEV1 was also low in the spirometry. In my office showed a combination of obstructive and restrictive physiology. His FEV1 was in order of 32% of predicted. 01/20/2022, the patient is comfortable. No worsening shortness of breath. The patient is going to undergo an MRI of the brain. Echocardiogram showed normal LV function. The tentative plan is to proceed with surgery by next week. 01/21/2022, no new complaints and the patient underwent MRI of the brain and C- spine that showed no evidence of any metastases. Still weak in lower extremities. He remains on Decadron. Awaiting surgery next week 01/22/2022, no new complaints and the patient is going to undergo surgery tomorrow. Respiratory status is borderline is stable as the patient is known to have COPD with significant impairment in the FEV1. This obviously would put him on an increased risk of developing postoperative pulmonary complications. The patient is a normal LV function. Hemodynamically stable. Pulse ox is 92% on room air oxygen. On 01/23/2022 patient seen in follow-up on medical oncology floor. He is awake alert, in no acute distress, is lying flat in bed, with head of the bed up at 15-20, does not appear to be in any acute distress, denies any shortness of breath, no chest pain no cough, no wheezing. Room air pulse ox is 93%, his been afebrile. Lung sounds are clear, diminished at the bases. Remains on DuoNeb, COPD seems to be stable. His thoracic spine CT lung windows showed small amount of bilateral pleural effusions and this was on 01/19/2022. Today's labs have been reviewed, white count is normal at 8.0, hemoglobin is 14.3, sodium is 133, the rest of the electrolytes and renal profile are unremarkable. Vital signs have been stable, no fever or chills. Patient is scheduled for surgery today with stabilization, and tissue diagnosis to rule out possibility of metastatic cancer possibly lung primary On 01/24/2022 patient is seen in follow-up in the intensive care unit. Patient is status post T7 to L1 stabilization with decompression and tumor biopsy on 01/23/[address] Moreno, today's postoperative day #1. Following his surgery patient remained intubated on mechanical ventilatory support overnight, and was admitted to the intensive care unit. This morning she remains sedated, on mechanical ventilator, on assist control with a rate of 18, tidal 500, FiO2 of 40% and PEEP of 5, this morning's blood gas shows pO2 of 75, pCO2 46, and pH of 7.40. His chest x-ray today shows a component of interstitial edema, but this was expiratory exam, with suspected borderline cardiomegaly. And low lung volumes. Patient is currently on 0.9 normal saline at a rate of 75 ML per hour, and improving and is at 35 mics per kilo per minute, has not been started on tube feedings as, today's labs have been reviewed showing white blood cell count of 11.0, hemoglobin of 13.5, platelet count of 207, sodium is 131, depressive electrolytes and renal profile were unremarkable. LFTs were unremarkable. No acute events overnight, patient has received a dose of vancomycin per orthopedic surgery. He remains on all of his cardiac medications including oral diuretics, Lopressor 50 mg twice daily, he is on his maintenance dose of methadone, Percocet, and has IV Dilaudid available for breakthrough pain. No acute issues overnight. Patient is opening eyes to voice, and following simple commands. Appears to be in no acute distress, we will proceed with sedation holiday, and weaning trials with a goal of extubation On 01/25/2022 patient is seen in follow-up in intensive care unit. Yesterday he was successfully weaned and extubated from mechanical ventilator, tolerated extubation quite well, he is on 2 L of oxygen with a pulse ox of 98%, breathing comfortably, lung sounds reveal some scattered wheezing bilaterally, no rhonchi, no complaints of chest pain. Today's chest x-ray showing diffuse interstitial pattern with bilateral infiltrates and pleural effusion, there is a dose of IV Lasix 20 mg IV push yesterday, he has diuresed, produced 3.9 L in urine output over the last 24 hours and overall he is in -2.1 L negative fluid balance over the last 24 hours. He remains on his home dose oral Lasix 20 mg daily. He remains on 0.9 with an area 75 ML per hour, he is tolerating oral intake. His work on incentive spirometer achieving [id number] on the today. Yesterday he was assisted up out of bed, and started at the bedside with assistance. His thoracic spine incision is clean dry and intact, Hemovac is in place, compressive draining small amount of sanguinous output. Today's labs have been reviewed, white blood, 0.1, hemoglobin is 12.8, platelet count is 221, sodium is 136, the rest of electrolytes and renal profile are unremarkable. LFTs are within normal limits. His pain is minimal according to the patient, hemodynamically has been stable, blood pressure stable, he is in sinus mechanism with a controlled rate. Objective - Vital Signs Vital signs: Vital Signs Temp 96.8 F L 01/25/22 04:00 Pulse 79 01/25/22 07:58 Resp 19 01/25/22 07:00 BP 108/54 01/25/22 07:00 Pulse Ox 98 01/25/22 07:00 FiO2 40 01/24/22 15:49 Intake & Output 01/24/22 01/25/22 01/25/22 18:59 06:59 18:59 Intake Total 900 900 75 Output Total 2795 1130 70 Balance -1895 -230 5 Weight 145.15 kg 136.4 kg Intake: IV 900 900 75 Sodium Chloride 0.9% 1, 900 900 75 000 ml @ 75 mls/hr IV . [id number] [facility] Rx#:[id number] Output: Drainage 120 120 Right Back 120 120 Urine 2675 1010 70 Other: Voiding Method Indwelling Catheter Indwelling Catheter ABP, PAP, CO, CI - Last Documented Arterial Blood Pressure 0/0 - Exam GENERAL EXAM: 71-year-old white male, awake and alert, in no acute distress, 2 L of oxygen pulse ox 98%, breathing comfortable, in no acute distress HEAD: Normocephalic/atraumatic. EYES: Normal reaction of pupils, equal size. Conjunctiva pink, sclera white. NOSE: Clear with pink turbinates. THROAT: No erythema or exudates. NECK: No masses, no JVD, no thyroid enlargement, no adenopathy. CHEST: No chest wall deformity. Symmetrical expansion. LUNGS: Equal air entry with diffuse wheezing CVS: Regular rate and rhythm, normal S1 and S2, no gallops, no murmurs, no rubs ABDOMEN: Soft, nontender. No hepatosplenomegaly, normal bowel sounds, no guarding or rigidity. EXTREMITIES: No clubbing, no edema, no cyanosis, 2+ pulses and upper and lower extremities. MUSCULOSKELETAL: Muscle strength and tone normal. SPINE: No scoliosis or deformity, back incision from the level of T7 to L1, not examined SKIN: No rashes CENTRAL NERVOUS SYSTEM: Awake and alert, oriented 3. No focal deficits, tone is normal in all 4 extremities. - Labs CBC & Chem 7: 01/25/22 09:35 01/25/22 09:35 Labs: Abnormal Lab Results - Last 24 Hours (Table) 01/25/22 01/25/22 Range/Units 09:35 09:35 Hgb 12.8 L (13.0-17.5) gm/dL MCHC 30.3 L (31.0-37.0) g/dL RDW 16.0 H (11.5-15.5) % Lymphocytes # 0.7 L (1.0-4.8) k/uL Sodium 136 L (137-145) mmol/L Glucose 118 H (74-99) mg/dL Calcium 8.1 L (8.4-10.2) mg/dL Microbiology - Last 24 Hours (Table) 01/23/22 23:02 Gram Stain - Preliminary Sputum Sputum Culture - Preliminary Assessment and Plan Plan: Assessment: #1. Chronic lower back pain related to suspected pathologic fracture of the level of T10 with unstable spine. Patient complained of weakness and radiculopathy bilaterally, patient had metastatic foci at the level of L1 spine on the PET scan, MRI of the C-spine and the brain was negative for metastasis. Patient is status post surgical stabilization of T7 through L1 and tumor biopsy of spine on 01/23/[address] Moreno #2. Routine postoperative ventilator management, patient remained on mechanical ventilator after surgery overnight, successfully weaned and extubated today on 01/24/2022 on postoperative day #1 #3. Lung mass/lung nodule, CT scan of the chest and the PET scan revealed a 1.7 cm right lower lobe pulmonary nodule with increased uptake on the PET scan an SUV of 9.54, and a right hilar lymph node with an SUV of 23. Patient also had intense uptake within the sternum with SUV of 16.06, besides these findings were highly suspicious for metastatic lung cancer. #4. History of COPD, advanced, stage III with FEV1 of 32% of predicted at baseline, patient has a combination of obstructive and restrictive pulmonary physiology related to morbid obesity and history of COPD #5. Morbid obesity with BMI 42.2 kg/m #6. Stasis dermatitis of bilateral lower extremities related to chronic peripheral venous hypertension with secondary ulcerations #7. Chronic back pain Plan: Patient is doing well on postoperative day #2 Continue increasing deep breathing and coughing We'll cut back IV fluids to KVO Patient is tolerating oral intake Continue home dose Lasix 20 mg daily Maintain pain control Up out of bed with assistance per orthopedic surgery recommendations Today's labs and chest x-ray have been noted Stable to go out of ICU today to the regular medical surgical floor if okay with orthopedic surgery I have personally seen and examined the patient, performed the documentation and the assessment and plan as written. Number of minutes spent on the visit: [15] Time with Patient: Less than 30
[2022-01-25] MEDS ORDERED: METOCLOPRAMIDE 5 MG/ML 2 ML VIAL IVP PRN (10:58)
[2022-01-25] MEDS ORDERED: HYDROmorphone 0.5 MG/0.5 ML SYRINGE IVP PRN (10:58)
[2022-01-25] MEDS ORDERED: LIDOCAINE 1% (10MG/ML) FOR IV START INTRADERMA PRN (10:58)
[2022-01-25] MEDS: LACTATED RINGERS 1,000 ML IV SCH (12:02)
[2022-01-25 12:50] LABS: Partial Thromboplastin Time 26.6 sec (22.0-30.0); Prothrombin Time 10.8 sec (9.0-12.0)
--- NOTE | 2022-01-25 12:59 | P.PN ---
Subjective Progress Note Date: 01/25/22 Principal diagnosis: Back Pain Patient seen and examined at bedside. Mr. López was sitting up in bed tolerating his diet. Patient states that his pain is controlled on current regimen. Patient is lying supine in bed, head of bed slightly elevated. Patient states he feels like his left lower extremity seems weak and was unable to make it to the chair. Encouraged patient to continue with bed exercises and to have a goal of getting up to the chair. Lung sounds are slightly diminished, instructed patient on use of incentive spirometer and patient demonstrated use with goal of 1500. Patient denies any numbness or tingling to bilateral groin or bilateral lower extremities. Weaver catheter remained patent. Hemovac drain remains intact and patent, possibly discontinue tomorrow pending output. Patient has been afebrile, denies nausea/vomiting, or chest pain. Objective - Vital Signs Vital signs: Vital Signs Temp 97.8 F 01/25/22 08:00 Pulse 75 01/25/22 11:15 Resp 13 01/25/22 11:00 BP 105/56 01/25/22 09:00 Pulse Ox 97 01/25/22 11:00 FiO2 40 01/24/22 15:49 Intake & Output 01/24/22 01/25/22 01/25/22 18:59 06:59 18:59 Intake Total 900 900 515 Output Total 2795 1130 370 Balance -1895 -230 145 Weight 145.15 kg 136.4 kg Intake: IV 900 900 155 Sodium Chloride 0.9% 1, 900 900 155 000 ml @ 20 mls/hr IV . Q24H [facility] Rx#:[id number] Oral 360 Output: Drainage 120 120 Right Back 120 120 Urine 2675 1010 370 Other: Voiding Method Indwelling Catheter Indwelling Catheter Indwelling Catheter ABP, PAP, CO, CI - Last Documented Arterial Blood Pressure 0/0 - Exam Physical Examination General: The patient is awake and alert, in no acute distress Skin: Skin is warm and dry with no obvious rashes or lesions. Hairy patches absent, no dorsal skin dimples, no cafe au lait spots. Surgical incision to lumbar region Eye: Pupils are equal, round and reactive to light, extra-ocular movements are intact; there is normal conjunctiva bilaterally. Neck: The neck is supple, there is no tenderness and ROM intact. Cardiovascular: There is a regular rate and rhythm. No murmur, rub or gallop is appreciated. Respiratory: Lungs are diminished to auscultation, respirations are non- labored, breath sounds are equal. Gastrointestinal: Soft, non-distended, non-tender abdomen . Back: There is slight tenderness to palpation in the midline and paralumbar region. There is no obvious deformity . Musculoskeletal: Lumbar ROM limited secondary to pain, UPPER EXTREMITY Shoulder abduction 5/5, elbow flexors 5/5, wrist dorsiflexors 5/5. finger abductor 5/5, nutrition services assistant 5/5, LOWER EXTREMITY Hip Flexor (Not part of PAUL Motor Score): RIGHT 4 LEFT 4 secondary to pain from procedure Knee Flexor: RIGHT 4 LEFT 4 secondary to pain from procedure Knee Extensor: RIGHT 4 LEFT 4 secondary to pain from procedure Ankle Dorsiflexion: RIGHT [5] LEFT [5] Ankle Plantarflexion: RIGHT [5] LEFT [5] EHL: RIGHT [5] LEFT [5] FHL: RIGHT [5] LEFT [5] Neurological: CN 2-12 intact. There are no obvious motor or sensory deficits. Movement and coordination equal and intact. Sensory exam to light touch intact C5-T1 and intact from L2-S1. Reflexes 2/4 in bilateral upper and lower extremities. Negative Hoffmans, babinski, and clonus signs. Psychiatric: Cooperative, appropriate mood & affect, normal judgment. - Labs CBC & Chem 7: 01/25/22 09:35 01/25/22 09:35 Labs: Abnormal Lab Results - Last 24 Hours (Table) 01/25/22 01/25/22 Range/Units 09:35 09:35 Hgb 12.8 L (13.0-17.5) gm/dL MCHC 30.3 L (31.0-37.0) g/dL RDW 16.0 H (11.5-15.5) % Lymphocytes # 0.7 L (1.0-4.8) k/uL Sodium 136 L (137-145) mmol/L Glucose 118 H (74-99) mg/dL Calcium 8.1 L (8.4-10.2) mg/dL Microbiology - Last 24 Hours (Table) 01/23/22 23:02 Gram Stain - Preliminary Sputum Sputum Culture - Preliminary Assessment and Plan Assessment: Postoperative day #2 status post T8-T12 decompression with posterior lateral stabilization, tumor resection Bilateral lower extremity radiculopathy Bilateral lower extremity weakness Plan: Plan: -Appreciate portrait consultant and team management. -Activity: as tolerated -Pain control: Adequate at this time -Meds: reviewed -GI ppx: senna, Miralax -Maintain Weaver catheter -Drain: Maintain and record output -DVT PPX: DEBBIES, SCDs -Encourage IS 10x/hr -Dispo: Anticipate [facility] within 3-4 days *I reviewed and discussed this case with my attending Dr. Moreno, whom has reviewed this chart and films and is in agreement with assessment and plan of care as outlined above. I have personally seen and examined the patient, performed the documentation and the assessment and plan as written. Number of minutes spent on the visit: 20m.
--- NOTE | 2022-01-25 18:00 | P.PN ---
Progress Note - Text Progress Note Date: 01/25/22 Patient is a 71-year-old male with a known history of bowel resection and chronic back pain presents to ER with complaints of severe intractable back pain and almost fell to the ground because of severe back pain. Patient was found to have a destructive lesion at the T10 and also newly diagnosed pulmonary nodule with possible metastasis. 01/19/2022. Patient is currently lying in the bed. Still complains of back pain. Denies any complaints of numbness or tingling of the lower extremities. No bowel or bladder incontinence. Patient is on Weaver catheter currently. No fever no chills. No cough or sputum production. No headache or dizziness or lightheadedness. continued on dexamethasone 6 mg every 6 hourly. Also on Flexeril and Dilaudid and also on methadone 2.5 mg every 12. Laboratory showed WBC 6.6 hemoglobin 14.0 and platelets 192 Sodium 139 potassium 4.9 chloride 102 bicarb is 25.8 and BUN 17.0 and creatinine 0.8 and calcium 8.4. Pulmonary and orthopedic surgery is on board. Thoracic and lumbar spine CT showed some cord edema due to expansile T10 lesion causing posterior T10 vertebral body margin bulging. Lesion at the L1 level is less well impressive without spinal canal involvement. A 3 mm round intradural extramedullary suspected enhancing lesion superior L4 level is nonspecific but concerning for possible drop metastatic focus. 01/20/2022. Patient is currently lying in the bed. Awake alert and oriented x3. Currently on room air. No complaints of chest pain. Pain is fairly controlled with medications. Patient is scheduled for orthopedic surgery. 2D echocardiogram showed normal left ventricular size and systolic function. Mild TR and mild MR. Patient is undergoing CT head and cervical spine. Otherwise patient denies any cough or sputum production. No fever no chills. No nausea vomiting abdominal pain or diarrhea. 01/21/2022 Patient is currently resting in bed comfortably. Awake alert and oriented x3. Back pain is controlled. Patient is steroids and muscle relaxants and narcotic pain medications. No complaints of chest pain or worsening shortness of breath. No fever no chills. MRI of the brain, cervical MRI showed white matter changes in the periventricular region more likely related to chronic microvascular ischemic change. No abdominal enhancement or other changes to suggest metastatic disease is identified. Cardiology and pulmonary is on board and patient is scheduled for orthopedic surgery on Saturday. January 23: I assumed care of patient today. Laying in bed. Nothing by mouth. Pending surgery later this afternoon. No new issues. Back pain present. January 24: Patient underwent spinal surgery yesterday.T9-T11 laminectomy. Arthrodesis. Excision of intraspinal neoplasm. ICU: Laying in bed. Pain is controlled.. Liquid diet. Son is at the bedside. Hemovac in place January 25: ICU. Eating well." Able to movelower extremity Pain well controlled. Active Medications Acetaminophen (Acetaminophen Tab 325 Mg Tab) 650 mg PO Q6HR PRN PRN Reason: Mild Pain or Fever > 100.5 Albuterol/Ipratropium (Ipratropium-Albuterol 3 Ml Neb) 3 ml INHALATION RT-QID [facility] Last Admin: 01/25/22 15:16 Dose: 3 ml Chlorhexidine Gluconate (Chlorhexidine Gluconate 15 Ml Cup) 15 ml MUCOUS MEM BID [facility] Last Admin: 01/25/22 08:23 Dose: Not Given Cyclobenzaprine HCl (Cyclobenzaprine 10 Mg Tab) 10 mg PO TID [facility] Last Admin: 01/25/22 08:27 Dose: 10 mg Dexamethasone Sodium Phosphate (Dexamethasone Sod Phosphate 4 Mg/Ml 1 Ml Vial) 6 mg IVP Q6HR PRN PRN Reason: Nausea And Vomiting Furosemide (Furosemide 20 Mg Tab) 20 mg PO DAILY [facility] Last Admin: 01/25/22 08:27 Dose: 20 mg Gabapentin (Gabapentin 300 Mg Cap) 300 mg PO TID [facility] Last Admin: 01/25/22 08:27 Dose: 300 mg Heparin Sodium (Porcine) (Heparin Sodium,Porcine/Pf 5,000 Unit/0.5 Ml Syringe) 5,000 unit SQ Q12HR [facility] Last Admin: 01/25/22 08:26 Dose: 5,000 unit Hydromorphone HCl (Hydromorphone 0.5 Mg/0.5 Ml Syringe) 0.5 mg IVP Q3HR PRN PRN Reason: Moderate Pain Hydromorphone HCl (Hydromorphone 1 Mg/Ml 1 Ml Syringe) 1 mg IVP Q3HR PRN PRN Reason: Severe Pain Last Admin: 01/24/22 12:19 Dose: 1 mg Hydromorphone HCl (Hydromorphone 0.5 Mg/0.5 Ml Syringe) 0.5 mg IVP Q5M PRN PRN Reason: Phase 1 or 2 - Pain Control Stop: 01/25/22 23:00 Sodium Chloride (Saline 0.9%) 1,000 mls @ 20 mls/hr IV .Q24H [facility] Last Admin: 01/25/22 08:27 Dose: 20 mls/hr Lactated Ringer's (Lactated Ringers) 1,000 mls @ 20 mls/hr IV .Q24H [facility] Last Admin: 01/25/22 12:02 Dose: Not Given Lidocaine HCl (Lidocaine 1% (10mg/Ml) For Iv Start) 0.1 ml INTRADERMA PER PROTOCOL PRN PRN Reason: IV Start Methadone HCl (Methadone 5 Mg Tab) 2.5 mg PO Q12H [facility] Last Admin: 01/25/22 06:25 Dose: 2.5 mg Metoclopramide HCl (Metoclopramide 5 Mg/Ml 2 Ml Vial) 10 mg IVP ONCE PRN PRN Reason: Phase 1 or 2 - Nausea/Vomiting Stop: 01/25/22 23:00 Metoprolol Tartrate (Metoprolol Tartrate 50 Mg Tab) 50 mg PO BID [facility] Last Admin: 01/25/22 08:27 Dose: 50 mg Naloxone HCl (Naloxone 0.4 Mg/Ml 1 Ml Vial) 0.2 mg IV Q2M PRN PRN Reason: Opioid Reversal Ondansetron HCl (Ondansetron 4 Mg/2 Ml Vial) 4 mg IVP Q8HR PRN PRN Reason: Nausea And Vomiting Last Admin: 01/23/22 16:11 Dose: 4 mg Oxycodone/Acetaminophen (Oxycodone-Apap 7.5-325mg 1 Each Tab) 1 each PO Q6HR PRN PRN Reason: Pain Last Admin: 01/24/22 21:20 Dose: 1 each Pantoprazole Sodium (Pantoprazole 40 Mg Tablet) 40 mg PO AC-BRKFST [facility] Last Admin: 01/25/22 06:30 Dose: 40 mg Potassium Chloride (Potassium Chloride Er 10 Meq Tab.Er.Prt) 10 meq PO DAILY [facility] Last Admin: 01/25/22 08:27 Dose: 10 meq On examination: VITAL SIGNS: Afebrile, 56, 95% 105/56 GENERAL APPEARANCE: Laying in bed, awake, comfortable. Hemovac in place. HEENT: Normal external appearance of nose and ear. Oral cavity normal EYES: Pupils equal. Conjunctiva normal. NECK: JVD not raised. Mass not palpable. RESPIRATORY: Respiratory effort normal. Lungs clear to auscultation. CARDIOVASCULAR: First and second sounds normal. No edema. ABDOMEN: Soft. Liver and spleen not palpable. No tenderness. No mass palpable. PSYCHIATRY: Alert and oriented x3. Mood and affect normal. INVESTIGATIONS, reviewed in the clinical context: January 24: White count 11 hemoglobin 13.5 platelets 207 potassium 4.5 creatinine 0.87 White count 8 hemoglobin 14.3 platelets 238 potassium 4.5 creatinine 0.7 MRI brain and C-spine with and without contrast: White matter changes and periventricular region. Most likely chronic microvascular ischemic changes. Tobacco lumbar spine MRI with and without contrast: Some cord edema due to expansile T10 lesion causing posterior T10 1 to be bony margin bulging. Add joining findings suggestive may be metastatic disease Assessment and plan: -Acute on chronic low back pain with T10 compression fracture with possible metastatic lesion.: January 23: Underwent laminectomy, excision of tumor. -Newly diagnosed lung mass/nodule. possible Pulmonary primary. Patient had PET scan and CT chest recently. Follow with pulmonary -Morbid obesity BMI 42.1 Weight loss measures -Stasis dermatitis of bilateral lower extremity secondary to chronic peripheral venous insufficiency. -COPD in a previous smoker. [facility] was discussed with the patient. Pending pathology. Clinically doing better. DC supplemental oxygen.
[2022-01-26] MEDS: METHADONE 5 MG TAB PO SCH ×2 (05:42→17:32)
[2022-01-26 05:48] LABS: Basophils # (A) 0.1 k/uL (0-0.2); Basophils % (A) 1 %; Eosinophils # (A) 0.4 k/uL (0-0.7); Eosinophils % (A) 5 %; HCT 37.6 % (39.0-53.0); HGB 11.2 gm/dL (13.0-17.5); Hypochromasia Slight; Lymphocytes # (A) 0.9 k/uL (1.0-4.8); Lymphocytes % (A) 12 %; MCH 25.5 pg (25.0-35.0); MCHC 29.8 g/dL (31.0-37.0); MCV 85.7 fL (80.0-100.0); Mean Platelet Volume 8.1; Monocytes # (A) 0.8 k/uL (0-1.0); Monocytes % (A) 10 %; Neutrophils # (A) 5.5 k/uL (1.3-7.7); Neutrophils % (A) 70 %; Platelet Count 236 k/uL (150-450); RBC 4.39 m/uL (4.30-5.90); RDW 15.6 % (11.5-15.5); WBC 7.9 k/uL (3.8-10.6)
[2022-01-26 06:22] LABS: African American GFR (CKD) >90 (>60 ml/min/1.73 sqM); Anion Gap 2 mmol/L; Blood Urea Nitrogen 15 mg/dL (9-20); Calcium 7.9 mg/dL (8.4-10.2); Carbon Dioxide 34 mmol/L (22-30); Chloride 100 mmol/L (98-107); Glucose 110 mg/dL (74-99); Non-African American GFR(CKD) 88 (>60 ml/min/1.73 sqM); Potassium 4.1 mmol/L (3.5-5.1); Sodium 136 mmol/L (137-145)
[2022-01-26] MEDS: IPRATROPIUM-ALBUTEROL 3 ML NEB INHALATION SCH ×4 (07:29→21:30)
[2022-01-26] MEDS: PANTOPRAZOLE 40 MG TABLET PO SCH (08:17)
[2022-01-26] MEDS: FUROSEMIDE 20 MG TAB PO SCH (08:17)
[2022-01-26] MEDS: POTASSIUM CHLORIDE ER 10 MEQ TAB.ER.PRT PO SCH (08:17)
[2022-01-26] MEDS: HEPARIN SODIUM,PORCINE/PF 5,000 UNIT/0.5 ML SYRINGE SQ SCH ×2 (08:18→21:29)
[2022-01-26] MEDS: CYCLOBENZAPRINE 10 MG TAB PO SCH ×3 (08:18→21:29)
[2022-01-26] MEDS: GABAPENTIN 300 MG CAP PO SCH ×3 (08:18→21:29)
[2022-01-26] MEDS: METOPROLOL TARTRATE 50 MG TAB PO SCH ×2 (08:18→21:29)
--- NOTE | 2022-01-26 08:35 | P.PN ---
Subjective Principal diagnosis: Back Pain Patient seen and examined at bedside. Mr. López was transferred from ICu to last night. Patient states that his pain is controlled on current regimen. Patient is lying supine in bed, with HOB elevated. He states that he has been up to the chair is that there for approximately 2 hours yesterday. Encouraged patient to work with physical therapy today and increased time being up as tolerated. Discussed with patient the possibility of going to rehab within the next 24-48 hours, patient verbalizes understanding. Spoke with shoe parts caser to assist patient and making decision of rehab facility. Patient denies any numbness or tingling to bilateral groin or bilateral lower extremities. Fu catheter remained patent. Hemovac drain removed output overnight 20ml. Patient has been afebrile, denies nausea/vomiting, or chest pain. Objective - Vital Signs Vital signs: Vital Signs Temp 97.8 F 01/26/22 02:00 Pulse 80 01/26/22 07:45 Resp 18 01/26/22 07:45 BP 115/70 01/26/22 02:00 Pulse Ox 98 01/26/22 07:29 FiO2 40 01/24/22 15:49 Intake & Output 01/25/22 01/26/22 01/26/22 18:59 06:59 18:59 Intake Total 1235 Output Total 1125 670 Balance 110 -670 Intake: IV 275 Sodium Chloride 0.9% 1, 275 000 ml @ 20 mls/hr IV . Q24H [facility] Rx#:[id number] Oral 960 Output: Drainage 20 Right Back 20 Urine 1125 650 Other: Voiding Method Indwelling Catheter Indwelling Catheter ABP, PAP, CO, CI - Last Documented Arterial Blood Pressure 0/0 - Exam Physical Examination General: The patient is awake and alert, in no acute distress Skin: Skin is warm and dry with no obvious rashes or lesions. Hairy patches absent, no dorsal skin dimples, no cafe au lait spots. Surgical incision to lumbar region Eye: Pupils are equal, round and reactive to light, extra-ocular movements are intact; there is normal conjunctiva bilaterally. Neck: The neck is supple, there is no tenderness and ROM intact. Cardiovascular: There is a regular rate and rhythm. No murmur, rub or gallop is appreciated. Respiratory: Lungs are diminished to auscultation, respirations are non- labored, breath sounds are equal. Gastrointestinal: Soft, non-distended, non-tender abdomen . Back: There is slight tenderness to palpation in the midline and paralumbar region. There is no obvious deformity . Musculoskeletal: Lumbar ROM limited secondary to pain, UPPER EXTREMITY Shoulder abduction 5/5, elbow flexors 5/5, wrist dorsiflexors 5/5. finger abductor 5/5, ergonomist 5/5, LOWER EXTREMITY Hip Flexor (Not part of PAUL Motor Score): RIGHT 4 LEFT 4 secondary to pain from procedure Knee Flexor: RIGHT 4 LEFT 4 secondary to pain from procedure Knee Extensor: RIGHT 4 LEFT 4 secondary to pain from procedure Ankle Dorsiflexion: RIGHT [5] LEFT [5] Ankle Plantarflexion: RIGHT [5] LEFT [5] EHL: RIGHT [5] LEFT [5] FHL: RIGHT [5] LEFT [5] Neurological: CN 2-12 intact. There are no obvious motor or sensory deficits. Movement and coordination equal and intact. Sensory exam to light touch intact C 5-T1 and intact from L2-S1. Reflexes 2/4 in bilateral upper and lower extremities. Negative Hoffmans, babinski, and clonus signs. Psychiatric: Cooperative, appropriate mood & affect, normal judgment. - Labs CBC & Chem 7: 01/26/22 05:17 01/26/22 05:17 Labs: Abnormal Lab Results - Last 24 Hours (Table) 01/25/22 01/25/22 01/26/22 Range/Units 09:35 09:35 05:17 Hgb 12.8 L 11.2 L (13.0-17.5) gm/dL Hct 37.6 L (39.0-53.0) % MCHC 30.3 L 29.8 L (31.0-37.0) g/dL RDW 16.0 H 15.6 H (11.5-15.5) % Lymphocytes # 0.7 L 0.9 L (1.0-4.8) k/uL Sodium 136 L (137-145) mmol/L Carbon Dioxide (22-30) mmol/L Glucose 118 H (74-99) mg/dL Calcium 8.1 L (8.4-10.2) mg/dL 01/26/22 Range/Units 05:17 Hgb (13.0-17.5) gm/dL Hct (39.0-53.0) % MCHC (31.0-37.0) g/dL RDW (11.5-15.5) % Lymphocytes # (1.0-4.8) k/uL Sodium 136 L (137-145) mmol/L Carbon Dioxide 34 H (22-30) mmol/L Glucose 110 H (74-99) mg/dL Calcium 7.9 L (8.4-10.2) mg/dL Assessment and Plan Assessment: Postoperative day #3 status post T8-T12 decompression with posterior lateral stabilization, tumor resection Bilateral lower extremity radiculopathy Bilateral lower extremity weakness Plan: Plan: -Appreciate senior market intelligence consultant and team management. -Activity: as tolerated -Pain control: Adequate at this time -Meds: reviewed -GI ppx: senna, Miralax -D/C fu catheter later this afternoon 01/26/22 -Drain: Maintain and record output -DVT PPX: TEDS, SCDs -Encourage IS 10x/hr -Dispo: Anticipate [facility] within 3-4 days *I reviewed and discussed this case with my attending Dr. Moreno, whom has reviewed this chart and films and is in agreement with assessment and plan of care as outlined above. I have personally seen and examined the patient, performed the documentation and the assessment and plan as written. Number of minutes spent on the visit: 20m.
[2022-01-26] MEDS: SODIUM CHLORIDE 0.9% 1,000 ML IV SCH (11:38)
[2022-01-26] MEDS: LACTATED RINGERS 1,000 ML IV SCH (11:38)
--- NOTE | 2022-01-26 12:12 | P.PN ---
Subjective Progress Note Date: 01/26/22 71-year-old male patient referred to me for a pulmonary nodule with a concern of underlying malignancy. This is a morbidly obese white male patient who is quite debilitated due to chronic back problems and arthritis. The patient has been living independently and [place] and he has been very limited in terms of his exercise capacity due to chronic back pain. Currently is taking methadone as maintenance for chronic back pain and takes Costilla on an as-needed basis. He moves around with help of a walker. Despite his limitations due to his obesity and his chronic back pain, the patient has been able to live independently. Denies having any respiratory difficulties. No reported cough sputum production chest tightness or wheezing. No hemoptysis. Recently, he had his dog jump on his chest which she thought caused some injury to his thoracic cage. He was complaining of pain and further investigation was done including a a CT that was done on 11/17/2021 that showed a lobulated spiculated 1.7 cm nodule in the right lung base, 7 mm pulmonary nodule in the right lower lobe and a 6 mm nodule in the right minor fissure.there was also evidence of centrilobular emphysema in the upper lobes and dependent atelectatic changes. This was followed up by a PET/CT that was done on 01/08/2022 and the PET scan showed increased FDG activity within the 1.7 cm nodule in the right lung base with an SUV of 9.54. In addition, there was a right hilar lymph node with a maximum SUV of 23. No abdominal metabolic activity within the abdomen. No activity within the pelvis. In terms of the bony structures, there was a metastatic deposit in the sternum with a maximum SUV of 16.06 and another T1 vertebral body lesion on the left and some metastatic deposits extending from T10 through L4 vertebral bodies. The findings were compatible with metastatic lung cancer and the patient was referred to me accordingly. There was some vague activity in the right parotid gland also. The patient is an ex-smoker. He has worked for the automotive industry in the past. this patient is morbidly obese. Denies having obstructive sleep apnea. He has chronic venous stasis and chronic edema lower extremities along with some chronic skin ulceration the legs for which she is doing wound care. No altered mentation. No headaches. He has exertional dyspnea. No dyspnea at rest. No angina. No palpitation. No cardiac arrhythmias. No recurrent pneumonias. No recurrent bronchitis and no history of any DVT or pulmonary embolism. . . No reported history of change in his voice quality, hoarseness, or hemoptysis. The patient doesn't utilize any form of respiratory medications or inhalers. He been on Lasix regarding his chronic lower extremity edema. I saw this patient my office on 01/17/2022 and I was planning to proceed with a lung biopsy. After the patient left my office, the patient became weak in the lower extremities to the point where he collapsed and he was unable to walk. The patient's stated that he had also some chronic back pain and was progressively getting more weak. He also reported some tingling in lower extr emity is bilaterally. He had good strength in his upper extremities. No loss in the bowel and bladder control. Based on that, he presented himself to the MRSA problem and the patient's underwent further investigation. CAT scan of the lumbar spine was done and it showed facet arthrosis at the level of L4-L5 and L5-S1 which is moderate to severe in nature along with lumbar lordosis. The level of T10, there is a fracture which has the features of a pathologic fracture and there is a lytic bony destruction noted anteriorly within the vertebral body that tracks down into the pedicles. There is also retropulsion of the posterior body wall into the spinal canal. The patient was seen by spine surgery. There was a concern for the posterior column involvement and potentially stability of the spine. There was also an anterior largest synthetic changes of the adjacent segments. There was also an L1 vertebral body lesion and other lytic foci at the level of T12. Based on all this, the patient is being considered for surgical stabilization of the spine. This may be an opportunity also to establish tissue diagnosis of this patient. For now, the patient on Decadron. He is resting, comfortably in bed. No Wray shortness of breath. Note that his FEV1 was also low in the spirometry. In my office showed a combination of obstructive and restrictive physiology. His FEV1 was in order of 32% of predicted. 01/20/2022, the patient is comfortable. No worsening shortness of breath. The patient is going to undergo an MRI of the brain. Echocardiogram showed normal LV function. The tentative plan is to proceed with surgery by next week. 01/21/2022, no new complaints and the patient underwent MRI of the brain and C- spine that showed no evidence of any metastases. Still weak in lower extremities. He remains on Decadron. Awaiting surgery next week 01/22/2022, no new complaints and the patient is going to undergo surgery tomorrow. Respiratory status is borderline is stable as the patient is known to have COPD with significant impairment in the FEV1. This obviously would put him on an increased risk of developing postoperative pulmonary complications. The patient is a normal LV function. Hemodynamically stable. Pulse ox is 92% on room air oxygen. On 01/23/2022 patient seen in follow-up on medical oncology floor. He is awake alert, in no acute distress, is lying flat in bed, with head of the bed up at 15-20, does not appear to be in any acute distress, denies any shortness of breath, no chest pain no cough, no wheezing. Room air pulse ox is 93%, his been afebrile. Lung sounds are clear, diminished at the bases. Remains on DuoNeb, COPD seems to be stable. His thoracic spine CT lung windows showed small amount of bilateral pleural effusions and this was on 01/19/2022. Today's labs have been reviewed, white count is normal at 8.0, hemoglobin is 14.3, sodium is 133, the rest of the electrolytes and renal profile are unremarkable. Vital signs have been stable, no fever or chills. Patient is scheduled for surgery today with stabilization, and tissue diagnosis to rule out possibility of metastatic cancer possibly lung primary On 01/24/2022 patient is seen in follow-up in the intensive care unit. Patient is status post T7 to L1 stabilization with decompression and tumor biopsy on 01/23/[address] Moreno, today's postoperative day #1. Following his surgery patient remained intubated on mechanical ventilatory support overnight, and was admitted to the intensive care unit. This morning she remains sedated, on mechanical ventilator, on assist control with a rate of 18, tidal 500, FiO2 of 40% and PEEP of 5, this morning's blood gas shows pO2 of 75, pCO2 46, and pH of 7.40. His chest x-ray today shows a component of interstitial edema, but this was expiratory exam, with suspected borderline cardiomegaly. And low lung volumes. Patient is currently on 0.9 normal saline at a rate of 75 ML per hour, and improving and is at 35 mics per kilo per minute, has not been started on tube feedings as, today's labs have been reviewed showing white blood cell count of 11.0, hemoglobin of 13.5, platelet count of 207, sodium is 131, depressive electrolytes and renal profile were unremarkable. LFTs were unremarkable. No acute events overnight, patient has received a dose of vancomycin per orthopedic surgery. He remains on all of his cardiac medications including oral diuretics, Lopressor 50 mg twice daily, he is on his maintenance dose of methadone, Percocet, and has IV Dilaudid available for breakthrough pain. No acute issues overnight. Patient is opening eyes to voice, and following simple commands. Appears to be in no acute distress, we will proceed with sedation holiday, and weaning trials with a goal of extubation On 01/25/2022 patient is seen in follow-up in intensive care unit. Yesterday he was successfully weaned and extubated from mechanical ventilator, tolerated extubation quite well, he is on 2 L of oxygen with a pulse ox of 98%, breathing comfortably, lung sounds reveal some scattered wheezing bilaterally, no rhonchi, no complaints of chest pain. Today's chest x-ray showing diffuse interstitial pattern with bilateral infiltrates and pleural effusion, there is a dose of IV Lasix 20 mg IV push yesterday, he has diuresed, produced 3.9 L in urine output over the last 24 hours and overall he is in -2.1 L negative fluid balance over the last 24 hours. He remains on his home dose oral Lasix 20 mg daily. He remains on 0.9 with an area 75 ML per hour, he is tolerating oral intake. His work on incentive spirometer achieving [id number] on the today. Yesterday he was assisted up out of bed, and started at the bedside with assistance. His thoracic spine incision is clean dry and intact, Hemovac is in place, compressive draining small amount of sanguinous output. Today's labs have been reviewed, white blood, 0.1, hemoglobin is 12.8, platelet count is 221, sodium is 136, the rest of electrolytes and renal profile are unremarkable. LFTs are within normal limits. His pain is minimal according to the patient, hemodynamically has been stable, blood pressure stable, he is in sinus mechanism with a controlled rate. The patient is seen today 01/26/2022 in follow-up on the regular medical floor. He is awake and alert in no acute distress. Currently resting fairly comfortably in bed. Maintaining O2 saturations in the 90s on 2 L/m per nasal cannula. He's been afebrile. Hemodynamically stable. Sputum culture revealed no growth. White count 7.9. Hemoglobin 11.2. Platelets 236. Sodium 136. Potassium 4.1. Bicarb 34. BUN 15. Creatinine 0.85. Glucose 110. His pain is well controlled currently. He was up in the chair yesterday. Working with physical therapy. Weaver catheter remains in place. Hemovac drain in place with minimal output. Objective - Vital Signs Vital signs: Vital Signs Temp 98.0 F 01/26/22 08:46 Pulse 84 01/26/22 08:46 Resp 18 01/26/22 08:18 BP 108/62 01/26/22 08:46 Pulse Ox 97 01/26/22 08:46 FiO2 40 01/24/22 15:49 Intake & Output 01/25/22 01/26/22 01/26/22 18:59 06:59 18:59 Intake Total 1235 Output Total 1125 670 Balance 110 -670 Intake: IV 275 Sodium Chloride 0.9% 1, 275 000 ml @ 20 mls/hr IV . Q24H [facility] Rx#:[id number] Oral 960 Output: Drainage 20 Right Back 20 Urine 1125 650 Other: Voiding Method Indwelling Catheter Indwelling Catheter Indwelling Catheter ABP, PAP, CO, CI - Last Documented Arterial Blood Pressure 0/0 - Exam GENERAL EXAM: 71-year-old male, awake and alert, in no acute distress, 2 L of oxygen pulse ox 97%, breathing comfortable, in no acute distress HEAD: Normocephalic/atraumatic. EYES: Normal reaction of pupils, equal size. Conjunctiva pink, sclera white. NOSE: Clear with pink turbinates. THROAT: No erythema or exudates. NECK: No masses, no JVD, no thyroid enlargement, no adenopathy. CHEST: No chest wall deformity. Symmetrical expansion. LUNGS: Equal air entry with mild end expiratory wheezing CVS: Regular rate and rhythm, normal S1 and S2, no gallops, no murmurs, no rubs ABDOMEN: Soft, nontender. No hepatosplenomegaly, normal bowel sounds, no guarding or rigidity. EXTREMITIES: No clubbing, no edema, no cyanosis, 2+ pulses and upper and lower extremities. MUSCULOSKELETAL: Muscle strength and tone normal. SPINE: No scoliosis or deformity, back incision from the level of T7 to L1, not examined, Hemovac in place SKIN: No rashes CENTRAL NERVOUS SYSTEM: Awake and alert, oriented 3. No focal deficits, tone is normal in all 4 extremities. - Labs CBC & Chem 7: 01/26/22 05:17 01/26/22 05:17 Labs: Abnormal Lab Results - Last 24 Hours (Table) 01/26/22 01/26/22 Range/Units 05:17 05:17 Hgb 11.2 L (13.0-17.5) gm/dL Hct 37.6 L (39.0-53.0) % MCHC 29.8 L (31.0-37.0) g/dL RDW 15.6 H (11.5-15.5) % Lymphocytes # 0.9 L (1.0-4.8) k/uL Sodium 136 L (137-145) mmol/L Carbon Dioxide 34 H (22-30) mmol/L Glucose 110 H (74-99) mg/dL Calcium 7.9 L (8.4-10.2) mg/dL Microbiology - Last 24 Hours (Table) 01/23/22 23:02 Gram Stain - Final Sputum Sputum Culture - Final Assessment and Plan Assessment: 1 Chronic lower back pain related to suspected pathologic fracture of the level of T10 with unstable spine. Patient complained of weakness and radiculopathy bilaterally, patient had metastatic foci at the level of L1 spine on the PET scan, MRI of the C-spine and the brain was negative for metastasis. Patient is status post surgical stabilization of T7 through L1 and tumor biopsy of spine on 01/23/[address] Moreno 2 Routine postoperative ventilator management, patient remained on mechanical ventilator after surgery overnight, successfully weaned and extubated on 01/24/2022 3 Lung mass/lung nodule, CT scan of the chest and the PET scan revealed a 1.7 cm right lower lobe pulmonary nodule with increased uptake on the PET scan an SUV of 9.54, and a right hilar lymph node with an SUV of 23. Patient also had intense uptake within the sternum with SUV of 16.06, besides these findings were highly suspicious for metastatic lung cancer. 4 History of COPD, advanced, stage III with FEV1 of 32% of predicted at baseline, patient has a combination of obstructive and restrictive pulmonary physiology related to morbid obesity and history of COPD 5 Morbid obesity with BMI 42.2 kg/m 6 Stasis dermatitis of bilateral lower extremities related to chronic peripheral venous hypertension with secondary ulcerations 7 Chronic back pain Plan: The patient was seen and evaluated Stable and on 2 L nasal cannula Continue with the use of the incentive spirometer Titrate down the FiO2 as tolerated Pain is currently well controlled Up in a chair at the bedside Working well with physical therapy We will continue to follow I have personally seen and examined the patient, performed the documentation and the assessment and plan as written. Number of minutes spent on the visit: 10.
[2022-01-26] MEDS: PSYLLIUM HUSK 100% 6 GM PACKET PO SCH (13:10)
--- NOTE | 2022-01-26 17:24 | P.PN ---
Progress Note - Text Progress Note Date: 01/26/22 Patient is a 71-year-old male with a known history of bowel resection and chronic back pain presents to ER with complaints of severe intractable back pain and almost fell to the ground because of severe back pain. Patient was found to have a destructive lesion at the T10 and also newly diagnosed pulmonary nodule with possible metastasis. 01/19/2022. Patient is currently lying in the bed. Still complains of back pain. Denies any complaints of numbness or tingling of the lower extremities. No bowel or bladder incontinence. Patient is on Weaver catheter currently. No fever no chills. No cough or sputum production. No headache or dizziness or lightheadedness. continued on dexamethasone 6 mg every 6 hourly. Also on Flexeril and Dilaudid and also on methadone 2.5 mg every 12. Laboratory showed WBC 6.6 hemoglobin 14.0 and platelets 192 Sodium 139 potassium 4.9 chloride 102 bicarb is 25.8 and BUN 17.0 and creatinine 0.8 and calcium 8.4. Pulmonary and orthopedic surgery is on board. Thoracic and lumbar spine CT showed some cord edema due to expansile T10 lesion causing posterior T10 vertebral body margin bulging. Lesion at the L1 level is less well impressive without spinal canal involvement. A 3 mm round intradural extramedullary suspected enhancing lesion superior L4 level is nonspecific but concerning for possible drop metastatic focus. 01/20/2022. Patient is currently lying in the bed. Awake alert and oriented x3. Currently on room air. No complaints of chest pain. Pain is fairly controlled with medications. Patient is scheduled for orthopedic surgery. 2D echocardiogram showed normal left ventricular size and systolic function. Mild TR and mild MR. Patient is undergoing CT head and cervical spine. Otherwise patient denies any cough or sputum production. No fever no chills. No nausea vomiting abdominal pain or diarrhea. 01/21/2022 Patient is currently resting in bed comfortably. Awake alert and oriented x3. Back pain is controlled. Patient is steroids and muscle relaxants and narcotic pain medications. No complaints of chest pain or worsening shortness of breath. No fever no chills. MRI of the brain, cervical MRI showed white matter changes in the periventricular region more likely related to chronic microvascular ischemic change. No abdominal enhancement or other changes to suggest metastatic disease is identified. Cardiology and pulmonary is on board and patient is scheduled for orthopedic surgery on Saturday. January 23: I assumed care of patient today. Laying in bed. Nothing by mouth. Pending surgery later this afternoon. No new issues. Back pain present. January 24: Patient underwent spinal surgery yesterday.T9-T11 laminectomy. Arthrodesis. Excision of intraspinal neoplasm. ICU: Laying in bed. Pain is controlled.. Liquid diet. Son is at the bedside. Hemovac in place January 25: ICU. Eating well." Able to movelower extremity Pain well controlled. January 26: Oral intake good. No BM. Metamucil added. Pain well controlled. Patient took a few steps with PT. Active Medications Acetaminophen (Acetaminophen Tab 325 Mg Tab) 650 mg PO Q6HR PRN PRN Reason: Mild Pain or Fever > 100.5 Albuterol/Ipratropium (Ipratropium-Albuterol 3 Ml Neb) 3 ml INHALATION RT-QID [facility] Last Admin: 01/26/22 16:14 Dose: 3 ml Cyclobenzaprine HCl (Cyclobenzaprine 10 Mg Tab) 10 mg PO TID [facility] Last Admin: 01/26/22 08:18 Dose: 10 mg Dexamethasone Sodium Phosphate (Dexamethasone Sod Phosphate 4 Mg/Ml 1 Ml Vial) 6 mg IVP Q6HR PRN PRN Reason: Nausea And Vomiting Furosemide (Furosemide 20 Mg Tab) 20 mg PO DAILY [facility] Last Admin: 01/26/22 08:17 Dose: 20 mg Gabapentin (Gabapentin 300 Mg Cap) 300 mg PO TID [facility] Last Admin: 01/26/22 08:18 Dose: 300 mg Heparin Sodium (Porcine) (Heparin Sodium,Porcine/Pf 5,000 Unit/0.5 Ml Syringe) 5,000 unit SQ Q12HR [facility] Last Admin: 01/26/22 08:18 Dose: 5,000 unit Hydromorphone HCl (Hydromorphone 0.5 Mg/0.5 Ml Syringe) 0.5 mg IVP Q3HR PRN PRN Reason: Moderate Pain Hydromorphone HCl (Hydromorphone 1 Mg/Ml 1 Ml Syringe) 1 mg IVP Q3HR PRN PRN Reason: Severe Pain Last Admin: 01/24/22 12:19 Dose: 1 mg Sodium Chloride (Saline 0.9%) 1,000 mls @ 20 mls/hr IV .Q24H [facility] Last Admin: 01/26/22 11:38 Dose: Not Given Lactated Ringer's (Lactated Ringers) 1,000 mls @ 20 mls/hr IV .Q24H [facility] Last Admin: 01/26/22 11:38 Dose: Not Given Lidocaine HCl (Lidocaine 1% (10mg/Ml) For Iv Start) 0.1 ml INTRADERMA PER PROTOCOL PRN PRN Reason: IV Start Methadone HCl (Methadone 5 Mg Tab) 2.5 mg PO Q12H [facility] Last Admin: 01/26/22 05:42 Dose: 2.5 mg Metoprolol Tartrate (Metoprolol Tartrate 50 Mg Tab) 50 mg PO BID [facility] Last Admin: 01/26/22 08:18 Dose: 50 mg Naloxone HCl (Naloxone 0.4 Mg/Ml 1 Ml Vial) 0.2 mg IV Q2M PRN PRN Reason: Opioid Reversal Ondansetron HCl (Ondansetron 4 Mg/2 Ml Vial) 4 mg IVP Q8HR PRN PRN Reason: Nausea And Vomiting Last Admin: 01/23/22 16:11 Dose: 4 mg Oxycodone/Acetaminophen (Oxycodone-Apap 7.5-325mg 1 Each Tab) 1 each PO Q6HR PRN PRN Reason: Pain Last Admin: 01/24/22 21:20 Dose: 1 each Pantoprazole Sodium (Pantoprazole 40 Mg Tablet) 40 mg PO AC-[id number] [facility] Last Admin: 01/26/22 08:17 Dose: 40 mg Potassium Chloride (Potassium Chloride Er 10 Meq Tab.Er.Prt) 10 meq PO DAILY [facility] Last Admin: 01/26/22 08:17 Dose: 10 meq Psyllium Hydrophilic Mucilloid (Psyllium Husk 100% 6 Gm Packet) 6 gm PO DAILY [facility] Last Admin: 01/26/22 13:10 Dose: 6 gm On examination: VITAL SIGNS: 98.2, 82, 16, 109 with 71, 96% on 2 L GENERAL APPEARANCE: Laying in bed, awake, comfortable. Hemovac in place. HEENT: Normal external appearance of nose and ear. Oral cavity normal EYES: Pupils equal. Conjunctiva normal. NECK: JVD not raised. Mass not palpable. RESPIRATORY: Respiratory effort normal. Lungs clear to auscultation. CARDIOVASCULAR: First and second sounds normal. No edema. ABDOMEN: Soft. Liver and spleen not palpable. No tenderness. No mass palpable. PSYCHIATRY: Alert and oriented x3. Mood and affect normal. 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 January 26: Hemoglobin 11.2 creatinine 0.8 January 24: White count 11 hemoglobin 13.5 platelets 207 potassium 4.5 creatinine 0.87 White count 8 hemoglobin 14.3 platelets 238 potassium 4.5 creatinine 0.7 MRI brain and C-spine with and without contrast: White matter changes and periventricular region. Most likely chronic microvascular ischemic changes. Tobacco lumbar spine MRI with and without contrast: Some cord edema due to expansile T10 lesion causing posterior T10 1 to be bony margin bulging. Add joining findings suggestive may be metastatic disease Assessment and plan: -Acute on chronic low back pain with T10 compression fracture from malignancy January 23: Underwent laminectomy, excision of tumor. -Newly diagnosed lung mass/nodule. possible Pulmonary primary. Patient had PET scan and CT chest recently. 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 -COPD in a previous smoker. DuoNeb -Acute postprocedure blood loss anemia expected from surgery IV iron Pathology noted. IV Ferrlecit. No radiation for at least 3 weeks following surgery. Await further input from oncology/radiation oncology
[2022-01-26] MEDS: SODIUM FERRIC GLUCONAT-SUCROSE 125 MG in SODIUM CHLORIDE 0.9% 100 ML IVPB SCH (19:51)
--- NOTE | 2022-01-26 23:07 | P.PN ---
Subjective Progress Note Date: 01/26/22 Principal diagnosis: Metastatic Malignancy affecting Cord Pathology reveals primary lung cancer. Will send for further testing with NGS and obtain MRi brain Objective - Vital Signs Vital signs: Vital Signs Temp 97.8 F 01/26/22 20:00 Pulse 80 01/26/22 21:43 Resp 16 01/26/22 20:00 BP 105/60 01/26/22 20:00 Pulse Ox 97 01/26/22 20:00 FiO2 40 01/24/22 15:49 Intake & Output 01/26/22 01/26/22 01/27/22 06:59 18:59 06:59 Output Total 670 Balance -670 Output: Drainage 20 Right Back 20 Urine 650 Other: Voiding Method Indwelling Catheter Indwelling Catheter Indwelling Catheter ABP, PAP, CO, CI - Last Documented Arterial Blood Pressure 0/0 - Exam - Constitutional General appearance: Present: cooperative, no acute distress - EENT Eyes: Present: EOMI ENT: Present: NA/AT - Neck Neck: Present: normal ROM - Respiratory Respiratory: right: wheezing - Cardiovascular Rhythm: regularly irregular - Gastrointestinal General gastrointestinal: Present: soft - Integumentary Integumentary: Present: pale - Musculoskeletal Musculoskeletal Comment(s): Lower ext weakness, sensation intact Musculoskeletal: Present: generalized weakness - Psychiatric Psychiatric: Present: A&O x's 3, appropriate affect - Labs CBC & Chem 7: 01/26/22 05:17 01/26/22 05:17 Labs: Abnormal Lab Results - Last 24 Hours (Table) 01/26/22 01/26/22 Range/Units 05:17 05:17 Hgb 11.2 L (13.0-17.5) gm/dL Hct 37.6 L (39.0-53.0) % MCHC 29.8 L (31.0-37.0) g/dL RDW 15.6 H (11.5-15.5) % Lymphocytes # 0.9 L (1.0-4.8) k/uL Sodium 136 L (137-145) mmol/L Carbon Dioxide 34 H (22-30) mmol/L Glucose 110 H (74-99) mg/dL Calcium 7.9 L (8.4-10.2) mg/dL Microbiology - Last 24 Hours (Table) 01/23/22 23:02 Gram Stain - Final Sputum Sputum Culture - Final Assessment and Plan (1) Compression of spinal cord Narrative/Plan: Surgical intervention planned saturday and will obtain tissue for path at that time, discussed with Dr. Moreno He is improving in strength post operatively Current Visit: Yes Status: Acute Code(s): G95.20 - UNSPECIFIED CORD COMPRESSION SNOMED Code(s): 14083684 (2) Lung mass Narrative/Plan: Metastatic site biopsy reveals positive primary lung cancer - NGS and initial work-up brain MRI Current Visit: Yes Status: Acute Code(s): R91.8 - OTHER NONSPECIFIC ABNORMAL FINDING OF LUNG FIELD SNOMED Code(s): 291283518 (3) Lytic lesion of bone on x-ray Current Visit: Yes Status: Acute Code(s): M89.9 - DISORDER OF BONE, UNSPECIFIED SNOMED Code(s): 652866209 (4) Mechanical back pain Current Visit: Yes Status: Acute Code(s): M54.9 - DORSALGIA, UNSPECIFIED SNOMED Code(s): 799227607 Plan: COntinues to increase stregnth Review of path and plan discussed in detail with patient Decrease dex initiate tapering 4q8, montior for neurological changes Radiaiton Onc following Dr. Melgar: I have completed the full history and physical and developed the above impression and plan, agree with dictation, dictated as a scribe.
[2022-01-27] MEDS: DEXAMETHASONE SOD PHOSPHATE 4 MG/ML 1 ML VIAL IVP SCH ×4 (00:52→23:16)
[2022-01-27] MEDS: METHADONE 5 MG TAB PO SCH ×2 (05:46→18:09)
[2022-01-27] MEDS: SODIUM CHLORIDE 0.9% 1,000 ML IV SCH (08:07)
[2022-01-27] MEDS: IPRATROPIUM-ALBUTEROL 3 ML NEB INHALATION SCH ×4 (08:10→20:07)
[2022-01-27] MEDS: CYCLOBENZAPRINE 10 MG TAB PO SCH ×3 (09:24→21:07)
[2022-01-27] MEDS: FUROSEMIDE 20 MG TAB PO SCH (09:24)
[2022-01-27] MEDS: POTASSIUM CHLORIDE ER 10 MEQ TAB.ER.PRT PO SCH (09:24)
[2022-01-27] MEDS: HEPARIN SODIUM,PORCINE/PF 5,000 UNIT/0.5 ML SYRINGE SQ SCH ×2 (09:24→21:07)
[2022-01-27] MEDS: GABAPENTIN 300 MG CAP PO SCH ×3 (09:24→21:07)
[2022-01-27] MEDS: PANTOPRAZOLE 40 MG TABLET PO SCH (09:24)
[2022-01-27] MEDS: METOPROLOL TARTRATE 50 MG TAB PO SCH ×2 (09:24→21:07)
[2022-01-27] MEDS: PSYLLIUM HUSK 100% 6 GM PACKET PO SCH (09:25)
[2022-01-27] MEDS: LACTATED RINGERS 1,000 ML IV SCH (09:25)
--- NOTE | 2022-01-27 09:37 | P.PN ---
Subjective Progress Note Date: 01/27/22 Principal diagnosis: 71 yo male mid/low back pain, severe, with pathological fracture T10 AO type B2/A4 burst LE radiculopathy b/l LE weakness b/l L1 lytic foci Left Lung lobe nodule Patient was seen at bedside this morning resting comfortably lying in semirecumbent position. Patient says he was up with physical therapy yesterday using his brace and walking around the room with walker. Patient says he is beginning to feel some increase in strength in both his lower extremities as well as decrease numbness/tingling in BLE since surgery was performed. Patient says he is in moderate amount of pain in his lower back, however, it is under pretty decent control with pain medication. Patient denies chest pain, fever, shortness breath, nausea, vomiting, change in vision. Objective - Vital Signs Vital signs: Vital Signs Temp 98.4 F 01/27/22 08:42 Pulse 91 01/27/22 08:42 Resp 17 01/27/22 08:42 BP 125/84 01/27/22 08:42 Pulse Ox 96 01/27/22 08:42 FiO2 40 01/24/22 15:49 Intake & Output 01/26/22 01/27/22 01/27/22 18:59 06:59 18:59 Output Total 1300 Balance -1300 Output: Urine 1300 Other: Voiding Method Indwelling Catheter Indwelling Catheter ABP, PAP, CO, CI - Last Documented Arterial Blood Pressure 0/0 - Exam Negative for any open fractures, ecchymosis, significant erythema, ulcers. Patient does have moderate tenderness to palpation along the midline and paraspinal regions of the thoracic and lumbar spines. Patient is nontender to palpation throughout rest exam. Patient sensation is intact bilaterally in the upper extremities. Sensation is intact in the bilateral lower extremities. Patient does have a little bit of limited range of motion in bilateral lower extremities in hip flexion/extension as well as knee flexion/extension. Patient has full range of motion bilateral upper extremities. Strength 5/5 in bilateral upper extremities. Strength 4/5 in resisted hip flexion/extension and knee fle xion/extension in bilateral lower extremities. Radial pulses intact, 2+ bilaterally. Cap refill under 3 seconds in digits of upper extremities. Negative [place] bilaterally. - Labs CBC & Chem 7: 01/26/22 05:17 01/26/22 05:17 Labs: Microbiology - Last 24 Hours (Table) 01/23/22 23:02 Gram Stain - Final Sputum Sputum Culture - Final Assessment and Plan Assessment: 1. pathological fracture T10 AO type B2/A4 burst; LE radiculopathy b/l; LE weakness b/l; L1 lytic foci; Left Lung lobe nodule Postoperative day 4 status post T9-T11 laminectomy for biopsy and excision of intraspinal neoplasm, extradural, thoracic; ORIF T10 pathological fracture; posterior segmental instrumentation T8T12; intralesional excision of tumor T10 with T10 kyphoplasty; arthrodesis posterior lateral T8T12 Plan: 1. pathological fracture T10 AO type B2/A4 burst; LE radiculopathy b/l; LE weakness b/l; L1 lytic foci; Left Lung lobe nodule - surgery performed 01/23/2022 - T9-T11 laminectomy for biopsy and excision of intraspinal neoplasm, extradural, thoracic; ORIF T10 pathological fracture; posterior segmental instrumentation T8T12; intralesional excision of tumor T10 with T10 kyphoplasty; arthrodesis posterior lateral T8T12. Patient stable at bedside this morning. Patient says he has been up with therapy walking around room in sitting in chair using back brace. Continue with steroids. We'll continue to follow patient while in hospital 2. Appreciate medical management 3. Pain management - oxycodone; gabapentin; Flexeril; Tylenol; ; Dilaudid only if necessary 4. GI prophylaxis - Protonix 5. DVT prophylaxis - heparin 6. PT/OT - weightbearing as tolerated with walker and brace on while up and about 7. Encourage incentive spirometer use Time with Patient: Less than 30
[2022-01-27] MEDS: SODIUM FERRIC GLUCONAT-SUCROSE 125 MG in SODIUM CHLORIDE 0.9% 100 ML IVPB SCH (10:05)
--- NOTE | 2022-01-27 11:44 | P.PN ---
Subjective Progress Note Date: 01/27/22 71-year-old male patient referred to me for a pulmonary nodule with a concern of underlying malignancy. This is a morbidly obese white male patient who is quite debilitated due to chronic back problems and arthritis. The patient has been living independently and [place] and he has been very limited in terms of his exercise capacity due to chronic back pain. Currently is taking methadone as maintenance for chronic back pain and takes [place] on an as-needed basis. He moves around with help of a walker. Despite his limitations due to his obesity and his chronic back pain, the patient has been able to live independently. Denies having any respiratory difficulties. No reported cough sputum production chest tightness or wheezing. No hemoptysis. Recently, he had his dog jump on his chest which she thought caused some injury to his thoracic cage. He was complaining of pain and further investigation was done including a a CT that was done on 11/17/2021 that showed a lobulated spiculated 1.7 cm nodule in the right lung base, 7 mm pulmonary nodule in the right lower lobe and a 6 mm nodule in the right minor fissure.there was also evidence of centrilobular emphysema in the upper lobes and dependent atelectatic changes. This was followed up by a PET/CT that was done on 01/08/2022 and the PET scan showed increased FDG activity within the 1.7 cm nodule in the right lung base with an SUV of 9.54. In addition, there was a right hilar lymph node with a maximum SUV of 23. No abdominal metabolic activity within the abdomen. No activity within the pelvis. In terms of the bony structures, there was a metastatic deposit in the sternum with a maximum SUV of 16.06 and another T1 vertebral body lesion on the left and some metastatic deposits extending from T10 through L4 vertebral bodies. The findings were compatible with metastatic lung cancer and the patient was referred to me accordingly. There was some vague activity in the right parotid gland also. The patient is an ex-smoker. He has worked for the automotive industry in the past. this patient is morbidly obese. Denies having obstructive sleep apnea. He has chronic venous stasis and chronic edema lower extremities along with some chronic skin ulceration the legs for which she is doing wound care. No altered mentation. No headaches. He has exertional dyspnea. No dyspnea at rest. No angina. No palpitation. No cardiac arrhythmias. No recurrent pneumonias. No recurrent bronchitis and no history of any DVT or pulmonary embolism. . . No reported history of change in his voice quality, hoarseness, or hemoptysis. The patient doesn't utilize any form of respiratory medications or inhalers. He been on Lasix regarding his chronic lower extremity edema. I saw this patient my office on 01/17/2022 and I was planning to proceed with a lung biopsy. After the patient left my office, the patient became weak in the lower extremities to the point where he collapsed and he was unable to walk. The patient's stated that he had also some chronic back pain and was progressively getting more weak. He also reported some tingling in lower extr emity is bilaterally. He had good strength in his upper extremities. No loss in the bowel and bladder control. Based on that, he presented himself to the MRSA problem and the patient's underwent further investigation. CAT scan of the lumbar spine was done and it showed facet arthrosis at the level of L4-L5 and L5-S1 which is moderate to severe in nature along with lumbar lordosis. The level of T10, there is a fracture which has the features of a pathologic fracture and there is a lytic bony destruction noted anteriorly within the vertebral body that tracks down into the pedicles. There is also retropulsion of the posterior body wall into the spinal canal. The patient was seen by spine surgery. There was a concern for the posterior column involvement and potentially stability of the spine. There was also an anterior largest synthetic changes of the adjacent segments. There was also an L1 vertebral body lesion and other lytic foci at the level of T12. Based on all this, the patient is being considered for surgical stabilization of the spine. This may be an opportunity also to establish tissue diagnosis of this patient. For now, the patient on Decadron. He is resting, comfortably in bed. No [place] shortness of breath. Note that his FEV1 was also low in the spirometry. In my office showed a combination of obstructive and restrictive physiology. His FEV1 was in order of 32% of predicted. 01/20/2022, the patient is comfortable. No worsening shortness of breath. The patient is going to undergo an MRI of the brain. Echocardiogram showed normal LV function. The tentative plan is to proceed with surgery by next week. 01/21/2022, no new complaints and the patient underwent MRI of the brain and C- spine that showed no evidence of any metastases. Still weak in lower extremities. He remains on Decadron. Awaiting surgery next week 01/22/2022, no new complaints and the patient is going to undergo surgery tomorrow. Respiratory status is borderline is stable as the patient is known to have COPD with significant impairment in the FEV1. This obviously would put him on an increased risk of developing postoperative pulmonary complications. The patient is a normal LV function. Hemodynamically stable. Pulse ox is 92% on room air oxygen. On 01/23/2022 patient seen in follow-up on medical oncology floor. He is awake alert, in no acute distress, is lying flat in bed, with head of the bed up at 15-20, does not appear to be in any acute distress, denies any shortness of breath, no chest pain no cough, no wheezing. Room air pulse ox is 93%, his been afebrile. Lung sounds are clear, diminished at the bases. Remains on DuoNeb, COPD seems to be stable. His thoracic spine CT lung windows showed small amount of bilateral pleural effusions and this was on 01/19/2022. Today's labs have been reviewed, white count is normal at 8.0, hemoglobin is 14.3, sodium is 133, the rest of the electrolytes and renal profile are unremarkable. Vital signs have been stable, no fever or chills. Patient is scheduled for surgery today with stabilization, and tissue diagnosis to rule out possibility of metastatic cancer possibly lung primary On 01/24/2022 patient is seen in follow-up in the intensive care unit. Patient is status post T7 to L1 stabilization with decompression and tumor biopsy on 01/23/[address] Moreno, today's postoperative day #1. Following his surgery patient remained intubated on mechanical ventilatory support overnight, and was admitted to the intensive care unit. This morning she remains sedated, on mechanical ventilator, on assist control with a rate of 18, tidal 500, FiO2 of 40% and PEEP of 5, this morning's blood gas shows pO2 of 75, pCO2 46, and pH of 7.40. His chest x-ray today shows a component of interstitial edema, but this was expiratory exam, with suspected borderline cardiomegaly. And low lung volumes. Patient is currently on 0.9 normal saline at a rate of 75 ML per hour, and improving and is at 35 mics per kilo per minute, has not been started on tube feedings as, today's labs have been reviewed showing white blood cell count of 11.0, hemoglobin of 13.5, platelet count of 207, sodium is 131, depressive electrolytes and renal profile were unremarkable. LFTs were unremarkable. No acute events overnight, patient has received a dose of vancomycin per orthopedic surgery. He remains on all of his cardiac medications including oral diuretics, Lopressor 50 mg twice daily, he is on his maintenance dose of methadone, Percocet, and has IV Dilaudid available for breakthrough pain. No acute issues overnight. Patient is opening eyes to voice, and following simple commands. Appears to be in no acute distress, we will proceed with sedation holiday, and weaning trials with a goal of extubation On 01/25/2022 patient is seen in follow-up in intensive care unit. Yesterday he was successfully weaned and extubated from mechanical ventilator, tolerated extubation quite well, he is on 2 L of oxygen with a pulse ox of 98%, breathing comfortably, lung sounds reveal some scattered wheezing bilaterally, no rhonchi, no complaints of chest pain. Today's chest x-ray showing diffuse interstitial pattern with bilateral infiltrates and pleural effusion, there is a dose of IV Lasix 20 mg IV push yesterday, he has diuresed, produced 3.9 L in urine output over the last 24 hours and overall he is in -2.1 L negative fluid balance over the last 24 hours. He remains on his home dose oral Lasix 20 mg daily. He remains on 0.9 with an area 75 ML per hour, he is tolerating oral intake. His work on incentive spirometer achieving [id number] on the today. Yesterday he was assisted up out of bed, and started at the bedside with assistance. His thoracic spine incision is clean dry and intact, Hemovac is in place, compressive draining small amount of sanguinous output. Today's labs have been reviewed, white blood, 0.1, hemoglobin is 12.8, platelet count is 221, sodium is 136, the rest of electrolytes and renal profile are unremarkable. LFTs are within normal limits. His pain is minimal according to the patient, hemodynamically has been stable, blood pressure stable, he is in sinus mechanism with a controlled rate. The patient is seen today 01/26/2022 in follow-up on the regular medical floor. He is awake and alert in no acute distress. Currently resting fairly comfortably in bed. Maintaining O2 saturations in the 90s on 2 L/m per nasal cannula. He's been afebrile. Hemodynamically stable. Sputum culture revealed no growth. White count 7.9. Hemoglobin 11.2. Platelets 236. Sodium 136. Potassium 4.1. Bicarb 34. BUN 15. Creatinine 0.85. Glucose 110. His pain is well controlled currently. He was up in the chair yesterday. Working with physical therapy. Weaver catheter remains in place. Hemovac drain in place with minimal output. The patient is seen today 01/27/2022 in follow-up on the regular medical floor. He is awake and alert in no acute distress. He is maintaining O2 saturations in the 90s on 3 L/m per nasal cannula. He is continuing to work with the incentive spirometer. He's been afebrile. Hemodynamically stable. He was up with assistance yesterday in physical therapy. He wears a back brace when up. His lower extremity weakness is improved slightly today compared to yesterday. His pain is fairly well controlled. 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 This information was relayed to the patient. He has been seen by oncology. He remains on Decadron 4 mg IV every 8 hours. Heparin for DVT prophylaxis. Objective - Vital Signs Vital signs: Vital Signs Temp 98.4 F 01/27/22 08:42 Pulse 91 01/27/22 08:42 Resp 17 01/27/22 08:42 BP 125/84 01/27/22 08:42 Pulse Ox 96 01/27/22 08:42 FiO2 40 01/24/22 15:49 Intake & Output 01/26/22 01/27/22 01/27/22 18:59 06:59 18:59 Output Total 1300 Balance -1300 Output: Urine 1300 Other: Voiding Method Indwelling Catheter Indwelling Catheter Indwelling Catheter ABP, PAP, CO, CI - Last Documented Arterial Blood Pressure 0/0 - Exam GENERAL EXAM: 71-year-old male, awake and alert, in no acute distress, 3 L of oxygen pulse ox 96%, breathing comfortable, in no acute distress HEAD: Normocephalic/atraumatic. EYES: Normal reaction of pupils, equal size. Conjunctiva pink, sclera white. NOSE: Clear with pink turbinates. THROAT: No erythema or exudates. NECK: No masses, no JVD, no thyroid enlargement, no adenopathy. CHEST: No chest wall deformity. Symmetrical expansion. LUNGS: Equal air entry with mild end expiratory wheezing CVS: Regular rate and rhythm, normal S1 and S2, no gallops, no murmurs, no rubs ABDOMEN: Soft, nontender. No hepatosplenomegaly, normal bowel sounds, no guarding or rigidity. EXTREMITIES: No clubbing, no edema, no cyanosis, 2+ pulses and upper and lower extremities. MUSCULOSKELETAL: Muscle strength and tone normal. SPINE: No scoliosis or deformity, back incision from the level of T7 to L1 SKIN: No rashes CENTRAL NERVOUS SYSTEM: Awake and alert, oriented 3. No focal deficits, tone is normal in all 4 extremities. - Labs CBC & Chem 7: 01/26/22 05:17 01/26/22 05:17 Labs: Microbiology - Last 24 Hours (Table) 01/23/22 23:02 Gram Stain - Final Sputum Sputum Culture - Final Assessment and Plan Assessment: 1 Chronic lower back pain related to suspected pathologic fracture of the level of T10 with unstable spine. Patient complained of weakness and radiculopathy bilaterally, patient had metastatic foci at the level of L1 spine on the PET scan, MRI of the C-spine and the brain was negative for metastasis. Patient is status post surgical stabilization of T7 through L1 and tumor biopsy of spine on 01/23/[address] Moreno. 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 2 Routine postoperative ventilator management, patient remained on mechanical ventilator after surgery overnight, successfully weaned and extubated on 01/24/2022 3 Lung mass/lung nodule, CT scan of the chest and the PET scan revealed a 1.7 cm right lower lobe pulmonary nodule with increased uptake on the PET scan an SUV of 9.54, and a right hilar lymph node with an SUV of 23. Patient also had intense uptake within the sternum with SUV of 16.06, besides these findings were highly suspicious for metastatic lung cancer. T10 bone biopsied and positive for metastatic pulmonary adenocarcinoma. 4 History of COPD, advanced, stage III with FEV1 of 32% of predicted at ba seline, patient has a combination of obstructive and restrictive pulmonary physiology related to morbid obesity and history of COPD 5 Morbid obesity with BMI 42.2 kg/m 6 Stasis dermatitis of bilateral lower extremities related to chronic peripheral venous hypertension with secondary ulcerations 7 Chronic back pain Plan: The patient was seen and evaluated Aware of his primary lung cancer with metastasis MRI of the brain pending Stable and on 3 L nasal cannula Continue with the use of the incentive spirometer Titrate down the FiO2 as tolerated Pain is currently fairly well controlled Working well with physical therapy We will continue to follow I have personally seen and examined the patient, performed the documentation and the assessment and plan as written. Number of minutes spent on the visit: 10.
[2022-01-27] MEDS: oxyCODONE-APAP 7.5-325MG 1 EACH TAB PO PRN (12:20)
--- NOTE | 2022-01-27 12:22 | MR ---
EXAMINATION TYPE: MR brain wo/w con DATE OF EXAM: 01/27/2022 COMPARISON: MR brain 01/20/2022 HISTORY: Staging TECHNIQUE: Multiplanar, multisequence images of the brain and brainstem is performed without and with IV contras t, utilizing 15 mL intravenous Gadavist . FINDINGS: Diffusion weighted images demonstrate no evidence of a recent infarct or other diffusion ab normality. There is no extra-axial fluid collection or significant white matter signal abnormality. The ventricular system and cisternal spaces are normal in size and appearance. The brain volume is age appropriate. Patchy periventricular and deep white matter T2 signal. Midline structures demonstrate normal morphology. The craniocervical junction appears within normal limits. Post contrast images demonstrate no abnormal enhancement. The dural venous sinuses appear pa tent. The visualized sinuses are clear and the globes are intact. IMPRESSION: 1. No evidence for intracranial mass, no significant change from 01/12/2022 2. Similar nonspecific white matter changes
--- NOTE | 2022-01-27 13:09 | P.PN ---
Progress Note - Text Progress Note Date: 01/27/22 Patient is a 71-year-old male with a known history of bowel resection and chronic back pain presents to ER with complaints of severe intractable back pain and almost fell to the ground because of severe back pain. Patient was found to have a destructive lesion at the T10 and also newly diagnosed pulmonary nodule with possible metastasis. 01/19/2022. Patient is currently lying in the bed. Still complains of back pain. Denies any complaints of numbness or tingling of the lower extremities. No bowel or bladder incontinence. Patient is on Weaver catheter currently. No fever no chills. No cough or sputum production. No headache or dizziness or lightheadedness. continued on dexamethasone 6 mg every 6 hourly. Also on Flexeril and Dilaudid and also on methadone 2.5 mg every 12. Laboratory showed WBC 6.6 hemoglobin 14.0 and platelets 192 Sodium 139 potassium 4.9 chloride 102 bicarb is 25.8 and BUN 17.0 and creatinine 0.8 and calcium 8.4. Pulmonary and orthopedic surgery is on board. Thoracic and lumbar spine CT showed some cord edema due to expansile T10 lesion causing posterior T10 vertebral body margin bulging. Lesion at the L1 level is less well impressive without spinal canal involvement. A 3 mm round intradural extramedullary suspected enhancing lesion superior L4 level is nonspecific but concerning for possible drop metastatic focus. 01/20/2022. Patient is currently lying in the bed. Awake alert and oriented x3. Currently on room air. No complaints of chest pain. Pain is fairly controlled with medications. Patient is scheduled for orthopedic surgery. 2D echocardiogram showed normal left ventricular size and systolic function. Mild TR and mild MR. Patient is undergoing CT head and cervical spine. Otherwise patient denies any cough or sputum production. No fever no chills. No nausea vomiting abdominal pain or diarrhea. 01/21/2022 Patient is currently resting in bed comfortably. Awake alert and oriented x3. Back pain is controlled. Patient is steroids and muscle relaxants and narcotic pain medications. No complaints of chest pain or worsening shortness of breath. No fever no chills. MRI of the brain, cervical MRI showed white matter changes in the periventricular region more likely related to chronic microvascular ischemic change. No abdominal enhancement or other changes to suggest metastatic disease is identified. Cardiology and pulmonary is on board and patient is scheduled for orthopedic surgery on Saturday. January 23: I assumed care of patient today. Laying in bed. Nothing by mouth. Pending surgery later this afternoon. No new issues. Back pain present. January 24: Patient underwent spinal surgery yesterday.T9-T11 laminectomy. Arthrodesis. Excision of intraspinal neoplasm. ICU: Laying in bed. Pain is controlled.. Liquid diet. Son is at the bedside. Hemovac in place January 25: ICU. Eating well." Able to movelower extremity Pain well controlled. January 26: Oral intake good. No BM. Metamucil added. Pain well controlled. Patient took a few steps with PT. January 27: No BM. Oral intake good. MRI of the brain done today. Pain well controlled. Discussed with the patient and son at the bedside. Active Medications Acetaminophen (Acetaminophen Tab 325 Mg Tab) 650 mg PO Q6HR PRN PRN Reason: Mild Pain or Fever > 100.5 Albuterol/Ipratropium (Ipratropium-Albuterol 3 Ml Neb) 3 ml INHALATION RT-QID [facility] Last Admin: 01/27/22 11:41 Dose: Not Given Cyclobenzaprine HCl (Cyclobenzaprine 10 Mg Tab) 10 mg PO TID [facility] Last Admin: 01/27/22 09:24 Dose: 10 mg Dexamethasone Sodium Phosphate (Dexamethasone Sod Phosphate 4 Mg/Ml 1 Ml Vial) 2 mg IVP Q8HR [facility] Furosemide (Furosemide 20 Mg Tab) 20 mg PO DAILY [facility] Last Admin: 01/27/22 09:24 Dose: 20 mg Gabapentin (Gabapentin 300 Mg Cap) 300 mg PO TID [facility] Last Admin: 01/27/22 09:24 Dose: 300 mg Heparin Sodium (Porcine) (Heparin Sodium,Porcine/Pf 5,000 Unit/0.5 Ml Syringe) 5,000 unit SQ Q12HR [facility] Last Admin: 01/27/22 09:24 Dose: 5,000 unit Hydromorphone HCl (Hydromorphone 0.5 Mg/0.5 Ml Syringe) 0.5 mg IVP Q3HR PRN PRN Reason: Moderate Pain Hydromorphone HCl (Hydromorphone 1 Mg/Ml 1 Ml Syringe) 1 mg IVP Q3HR PRN PRN Reason: Severe Pain Last Admin: 01/24/22 12:19 Dose: 1 mg Sodium Chloride (Saline 0.9%) 1,000 mls @ 20 mls/hr IV .Q24H [facility] Last Admin: 01/27/22 08:07 Dose: Not Given Lactated Ringer's (Lactated Ringers) 1,000 mls @ 20 mls/hr IV .Q24H [facility] Last Admin: 01/27/22 09:25 Dose: Not Given Lidocaine HCl (Lidocaine 1% (10mg/Ml) For Iv Start) 0.1 ml INTRADERMA PER PROTOCOL PRN PRN Reason: IV Start Methadone HCl (Methadone 5 Mg Tab) 2.5 mg PO Q12H [facility] Last Admin: 01/27/22 05:46 Dose: 2.5 mg Metoprolol Tartrate (Metoprolol Tartrate 50 Mg Tab) 50 mg PO BID [facility] Last Admin: 01/27/22 09:24 Dose: 50 mg Naloxone HCl (Naloxone 0.4 Mg/Ml 1 Ml Vial) 0.2 mg IV Q2M PRN PRN Reason: Opioid Reversal Ondansetron HCl (Ondansetron 4 Mg/2 Ml Vial) 4 mg IVP Q8HR PRN PRN Reason: Nausea And Vomiting Last Admin: 01/23/22 16:11 Dose: 4 mg Oxycodone/Acetaminophen (Oxycodone-Apap 7.5-325mg 1 Each Tab) 1 each PO Q6HR PRN PRN Reason: Pain Last Admin: 01/27/22 12:20 Dose: 1 each Pantoprazole Sodium (Pantoprazole 40 Mg Tablet) 40 mg PO AC-BRKFST [facility] Last Admin: 01/27/22 09:24 Dose: 40 mg Potassium Chloride (Potassium Chloride Er 10 Meq Tab.Er.Prt) 10 meq PO DAILY [facility] Last Admin: 01/27/22 09:24 Dose: 10 meq Psyllium Hydrophilic Mucilloid (Psyllium Husk 100% 6 Gm Packet) 6 gm PO DAILY [facility] Last Admin: 01/27/22 09:25 Dose: 6 gm On examination: VITAL SIGNS: 98.4, 91, 17, 125/84, 96% on 3 L GENERAL APPEARANCE: Laying in bed, awake, comfortable. HEENT: Normal external appearance of nose and ear. Oral cavity normal EYES: Pupils equal. Conjunctiva normal. NECK: JVD not raised. Mass not palpable. RESPIRATORY: Respiratory effort normal. Lungs clear to auscultation. CARDIOVASCULAR: First and second sounds normal. No edema. ABDOMEN: Soft. Liver and spleen not palpable. No tenderness. No mass palpable. PSYCHIATRY: Alert and oriented x3. Mood and affect normal. 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 January 26: Hemoglobin 11.2 creatinine 0.8 January 24: White count 11 hemoglobin 13.5 platelets 207 potassium 4.5 creatinine 0.87 White count 8 hemoglobin 14.3 platelets 238 potassium 4.5 creatinine 0.7 MRI brain and C-spine with and without contrast: White matter changes and periventricular region. Most likely chronic microvascular ischemic changes. Tobacco lumbar spine MRI with and without contrast: Some cord edema due to expansile T10 lesion causing posterior T10 1 to be bony margin bulging. Add joining findings suggestive may be metastatic disease Assessment and plan: -Acute on chronic low back pain with T10 compression fracture from malignancy January 23: Underwent laminectomy, excision of tumor. -Newly diagnosed lung mass/nodule. possible Pulmonary primary. Patient had PET scan and CT chest recently. 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 -COPD in a previous smoker. DuoNeb -Acute postprocedure blood loss anemia expected from surgery IV iron -Acute medical debility and gait dysfunction from malignancy and surgery PTOT Pathology noted. IV Ferrlecit. No radiation for at least 3 weeks following surgery. Await further input from oncology/radiation oncology. Decadron being tapered
[2022-01-28] MEDS: METHADONE 5 MG TAB PO SCH ×2 (05:07→16:29)
[2022-01-28] MEDS: GABAPENTIN 300 MG CAP PO SCH ×3 (07:38→19:41)
[2022-01-28] MEDS: POTASSIUM CHLORIDE ER 10 MEQ TAB.ER.PRT PO SCH (07:38)
[2022-01-28] MEDS: CYCLOBENZAPRINE 10 MG TAB PO SCH ×3 (07:38→19:41)
[2022-01-28] MEDS: PANTOPRAZOLE 40 MG TABLET PO SCH (07:38)
[2022-01-28] MEDS: PSYLLIUM HUSK 100% 6 GM PACKET PO SCH (07:39)
[2022-01-28] MEDS: DEXAMETHASONE SOD PHOSPHATE 4 MG/ML 1 ML VIAL IVP SCH ×3 (07:39→23:55)
[2022-01-28] MEDS: METOPROLOL TARTRATE 50 MG TAB PO SCH ×2 (07:39→19:41)
[2022-01-28] MEDS: FUROSEMIDE 20 MG TAB PO SCH (07:39)
[2022-01-28] MEDS: HEPARIN SODIUM,PORCINE/PF 5,000 UNIT/0.5 ML SYRINGE SQ SCH ×2 (07:40→19:41)
[2022-01-28] MEDS: SODIUM CHLORIDE 0.9% 1,000 ML IV SCH (07:40)
[2022-01-28] MEDS: LACTATED RINGERS 1,000 ML IV SCH (07:41)
[2022-01-28] MEDS: IPRATROPIUM-ALBUTEROL 3 ML NEB INHALATION SCH ×4 (08:18→19:47)
--- NOTE | 2022-01-28 11:55 | P.PN ---
Subjective Progress Note Date: 01/28/22 Principal diagnosis: Status post T8-T12 decompression with posterior lateral stabilization, tumor resection Patient was evaluated today, he is sitting up in his hospital bed. Patient is utilizing his TLSO brace. He states that he is feeling stronger each day. He has mild pain in his back. The bandages were changed yesterday at bedside. He denies any numbness and tingling of the genital or perineal region. Urinary catheter still remains in place. Patient is being followed by multiple medical specialties at this time. Objective - Vital Signs Vital signs: Vital Signs Temp 97.4 F L 01/28/22 07:42 Pulse 77 01/28/22 11:51 Resp 18 01/28/22 07:42 BP 128/75 01/28/22 07:42 Pulse Ox 98 01/28/22 07:42 FiO2 40 01/24/22 15:49 Intake & Output 01/27/22 01/28/22 01/28/22 18:59 06:59 18:59 Output Total 800 900 Balance -800 -900 Output: Urine 800 900 Other: Voiding Method Indwelling Catheter Indwelling Catheter Indwelling Catheter ABP, PAP, CO, CI - Last Documented Arterial Blood Pressure 0/0 - Exam Gen: AOx3, NAD VSS stable at this time Integument: Dressings are in good position and condition Palpation: Mild tenderness midline and paraspinal region of the lower thoracic spine ROM: Full range of motion in all major muscle groups of the bilateral upper and lower extremities, no obvious focal deficits appreciated Sensory Exam: Senory exam to light touch is intact C5-T1 Senosry exam to light touch is intact L2-S1 Motor: 55 strength appreciated in the bilateral upper extremities with shoulder elevation, shoulder abduction, elbow extension, elbow flexion, wrist extension, wrist flexion, wire weaver 55 strength appreciated to bilateral lower extremities with hip flexion, knee extension, knee flexion 55 strength appreciated bilateral lower extremities with plantar flexion, dorsiflexion, EHL, FHL Reflexes: 2/4 in all UE and LE Negative Doni's bilaterally Negative Babinski bilaterally Negative clonus bilaterally Special Test: Negative straight leg raise bilaterally - Labs CBC & Chem 7: 01/26/22 05:17 01/26/22 05:17 Assessment and Plan Assessment: Postoperative day #5 status post T8-T12 decompression with posterior lateral stabilization, tumor resection Bilateral lower extremity radiculopathy Bilateral lower extremity weakness Plan: Pain control, continue with current oral and IV medication as needed DVT prophylaxis, continue heparin Continue to monitor dressings, we'll apply new dressings prior to discharge Activity level and restrictions, no lifting, bending or twisting. Continue use of the TLSO brace when up and ambulating, okay to discontinue when resting in bed Continue with daily physical therapy Encourage incentive spirometer Other medical specialty recommendations appreciated Discharge planning: Anticipated discharge to subacute rehab when medically stable. Time with Patient: Less than 30
--- NOTE | 2022-01-28 13:33 | P.PN ---
Subjective Progress Note Date: 01/28/22 71-year-old male patient referred to me for a pulmonary nodule with a concern of underlying malignancy. This is a morbidly obese white male patient who is quite debilitated due to chronic back problems and arthritis. The patient has been living independently and [place] and he has been very limited in terms of his exercise capacity due to chronic back pain. Currently is taking methadone as maintenance for chronic back pain and takes [place] on an as-needed basis. He moves around with help of a walker. Despite his limitations due to his obesity and his chronic back pain, the patient has been able to live independently. Denies having any respiratory difficulties. No reported cough sputum production chest tightness or wheezing. No hemoptysis. Recently, he had his dog jump on his chest which she thought caused some injury to his thoracic cage. He was complaining of pain and further investigation was done including a a CT that was done on 11/17/2021 that showed a lobulated spiculated 1.7 cm nodule in the right lung base, 7 mm pulmonary nodule in the right lower lobe and a 6 mm nodule in the right minor fissure.there was also evidence of centrilobular emphysema in the upper lobes and dependent atelectatic changes. This was followed up by a PET/CT that was done on 01/08/2022 and the PET scan showed increased FDG activity within the 1.7 cm nodule in the right lung base with an SUV of 9.54. In addition, there was a right hilar lymph node with a maximum SUV of 23. No abdominal metabolic activity within the abdomen. No activity within the pelvis. In terms of the bony structures, there was a metastatic deposit in the sternum with a maximum SUV of 16.06 and another T1 vertebral body lesion on the left and some metastatic deposits extending from T10 through L4 vertebral bodies. The findings were compatible with metastatic lung cancer and the patient was referred to me accordingly. There was some vague activity in the right parotid gland also. The patient is an ex-smoker. He has worked for the automotive industry in the past. this patient is morbidly obese. Denies having obstructive sleep apnea. He has chronic venous stasis and chronic edema lower extremities along with some chronic skin ulceration the legs for which she is doing wound care. No altered mentation. No headaches. He has exertional dyspnea. No dyspnea at rest. No angina. No palpitation. No cardiac arrhythmias. No recurrent pneumonias. No recurrent bronchitis and no history of any DVT or pulmonary embolism. . . No reported history of change in his voice quality, hoarseness, or hemoptysis. The patient doesn't utilize any form of respiratory medications or inhalers. He been on Lasix regarding his chronic lower extremity edema. I saw this patient my office on 01/17/2022 and I was planning to proceed with a lung biopsy. After the patient left my office, the patient became weak in the lower extremities to the point where he collapsed and he was unable to walk. The patient's stated that he had also some chronic back pain and was progressively getting more weak. He also reported some tingling in lower extr emity is bilaterally. He had good strength in his upper extremities. No loss in the bowel and bladder control. Based on that, he presented himself to the MRSA problem and the patient's underwent further investigation. CAT scan of the lumbar spine was done and it showed facet arthrosis at the level of L4-L5 and L5-S1 which is moderate to severe in nature along with lumbar lordosis. The level of T10, there is a fracture which has the features of a pathologic fracture and there is a lytic bony destruction noted anteriorly within the vertebral body that tracks down into the pedicles. There is also retropulsion of the posterior body wall into the spinal canal. The patient was seen by spine surgery. There was a concern for the posterior column involvement and potentially stability of the spine. There was also an anterior largest synthetic changes of the adjacent segments. There was also an L1 vertebral body lesion and other lytic foci at the level of T12. Based on all this, the patient is being considered for surgical stabilization of the spine. This may be an opportunity also to establish tissue diagnosis of this patient. For now, the patient on Decadron. He is resting, comfortably in bed. No [place] shortness of breath. Note that his FEV1 was also low in the spirometry. In my office showed a combination of obstructive and restrictive physiology. His FEV1 was in order of 32% of predicted. 01/20/2022, the patient is comfortable. No worsening shortness of breath. The patient is going to undergo an MRI of the brain. Echocardiogram showed normal LV function. The tentative plan is to proceed with surgery by next week. 01/21/2022, no new complaints and the patient underwent MRI of the brain and C- spine that showed no evidence of any metastases. Still weak in lower extremities. He remains on Decadron. Awaiting surgery next week 01/22/2022, no new complaints and the patient is going to undergo surgery tomorrow. Respiratory status is borderline is stable as the patient is known to have COPD with significant impairment in the FEV1. This obviously would put him on an increased risk of developing postoperative pulmonary complications. The patient is a normal LV function. Hemodynamically stable. Pulse ox is 92% on room air oxygen. On 01/23/2022 patient seen in follow-up on medical oncology floor. He is awake alert, in no acute distress, is lying flat in bed, with head of the bed up at 15-20, does not appear to be in any acute distress, denies any shortness of breath, no chest pain no cough, no wheezing. Room air pulse ox is 93%, his been afebrile. Lung sounds are clear, diminished at the bases. Remains on DuoNeb, COPD seems to be stable. His thoracic spine CT lung windows showed small amount of bilateral pleural effusions and this was on 01/19/2022. Today's labs have been reviewed, white count is normal at 8.0, hemoglobin is 14.3, sodium is 133, the rest of the electrolytes and renal profile are unremarkable. Vital signs have been stable, no fever or chills. Patient is scheduled for surgery today with stabilization, and tissue diagnosis to rule out possibility of metastatic cancer possibly lung primary On 01/24/2022 patient is seen in follow-up in the intensive care unit. Patient is status post T7 to L1 stabilization with decompression and tumor biopsy on 01/23/[address] Moreno, today's postoperative day #1. Following his surgery patient remained intubated on mechanical ventilatory support overnight, and was admitted to the intensive care unit. This morning she remains sedated, on mechanical ventilator, on assist control with a rate of 18, tidal 500, FiO2 of 40% and PEEP of 5, this morning's blood gas shows pO2 of 75, pCO2 46, and pH of 7.40. His chest x-ray today shows a component of interstitial edema, but this was expiratory exam, with suspected borderline cardiomegaly. And low lung volumes. Patient is currently on 0.9 normal saline at a rate of 75 ML per hour, and improving and is at 35 mics per kilo per minute, has not been started on tube feedings as, today's labs have been reviewed showing white blood cell count of 11.0, hemoglobin of 13.5, platelet count of 207, sodium is 131, depressive electrolytes and renal profile were unremarkable. LFTs were unremarkable. No acute events overnight, patient has received a dose of vancomycin per orthopedic surgery. He remains on all of his cardiac medications including oral diuretics, Lopressor 50 mg twice daily, he is on his maintenance dose of methadone, Percocet, and has IV Dilaudid available for breakthrough pain. No acute issues overnight. Patient is opening eyes to voice, and following simple commands. Appears to be in no acute distress, we will proceed with sedation holiday, and weaning trials with a goal of extubation On 01/25/2022 patient is seen in follow-up in intensive care unit. Yesterday he was successfully weaned and extubated from mechanical ventilator, tolerated extubation quite well, he is on 2 L of oxygen with a pulse ox of 98%, breathing comfortably, lung sounds reveal some scattered wheezing bilaterally, no rhonchi, no complaints of chest pain. Today's chest x-ray showing diffuse interstitial pattern with bilateral infiltrates and pleural effusion, there is a dose of IV Lasix 20 mg IV push yesterday, he has diuresed, produced 3.9 L in urine output over the last 24 hours and overall he is in -2.1 L negative fluid balance over the last 24 hours. He remains on his home dose oral Lasix 20 mg daily. He remains on 0.9 with an area 75 ML per hour, he is tolerating oral intake. His work on incentive spirometer achieving [id number] on the today. Yesterday he was assisted up out of bed, and started at the bedside with assistance. His thoracic spine incision is clean dry and intact, Hemovac is in place, compressive draining small amount of sanguinous output. Today's labs have been reviewed, white blood, 0.1, hemoglobin is 12.8, platelet count is 221, sodium is 136, the rest of electrolytes and renal profile are unremarkable. LFTs are within normal limits. His pain is minimal according to the patient, hemodynamically has been stable, blood pressure stable, he is in sinus mechanism with a controlled rate. The patient is seen today 01/26/2022 in follow-up on the regular medical floor. He is awake and alert in no acute distress. Currently resting fairly comfortably in bed. Maintaining O2 saturations in the 90s on 2 L/m per nasal cannula. He's been afebrile. Hemodynamically stable. Sputum culture revealed no growth. White count 7.9. Hemoglobin 11.2. Platelets 236. Sodium 136. Potassium 4.1. Bicarb 34. BUN 15. Creatinine 0.85. Glucose 110. His pain is well controlled currently. He was up in the chair yesterday. Working with physical therapy. Weaver catheter remains in place. Hemovac drain in place with minimal output. The patient is seen today 01/27/2022 in follow-up on the regular medical floor. He is awake and alert in no acute distress. He is maintaining O2 saturations in the 90s on 3 L/m per nasal cannula. He is continuing to work with the incentive spirometer. He's been afebrile. Hemodynamically stable. He was up with assistance yesterday in physical therapy. He wears a back brace when up. His lower extremity weakness is improved slightly today compared to yesterday. His pain is fairly well controlled. 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 This information was relayed to the patient. He has been seen by oncology. He remains on Decadron 4 mg IV every 8 hours. Heparin for DVT prophylaxis. The patient is seen today 01/28/2022 in follow-up on the regular medical floor. He is status post T8 through T12 decompression with posterior lateral stabilization, tumor resection. Pathology was positive for pulmonary adenocarcinoma. He has a TLSO brace in place. He is currently sitting up in a chair at the bedside. His pain is well controlled. Awake and alert in no acute distress. Doing better today compared to yesterday. MRI of the brain revealed no evidence of intracranial mass. Nonspecific white matter changes. He's been afebrile. Hemodynamically stable. Normal saline at 10 MLS per hour. He is maintaining good O2 saturation 90s on 2 L. Still with some end expiratory wheeze. Sputum culture reveals no growth. Currently in a -800 ML balance. Weaver catheter remains in place. Continued on oral diuretics. Decadron has been decreased to 2 mg IV every 8 hours. Remains on bronchodilators. Heparin for DVT prophylaxis. Objective - Vital Signs Vital signs: Vital Signs Temp 97.4 F L 01/28/22 07:42 Pulse 77 01/28/22 11:51 Resp 18 01/28/22 07:42 BP 128/75 01/28/22 07:42 Pulse Ox 98 01/28/22 07:42 FiO2 40 01/24/22 15:49 Intake & Output 01/27/22 01/28/22 01/28/22 18:59 06:59 18:59 Intake Total 120 Output Total 791 835 1145 Balance -800 900 1180 Intake: IV 120 Sodium Chloride 0.9% 1, 120 000 ml @ 20 mls/hr IV . Q24H COUNT INCLUDES THE [facility] Rx#:[id number] Output: Urine 830 036 0355 Other: Voiding Method Indwelling Catheter Indwelling Catheter Indwelling Catheter ABP, PAP, CO, CI - Last Documented Arterial Blood Pressure 0/0 - Exam GENERAL EXAM: 71-year-old male, awake and alert, up in a chair at the bedside, 3 L of oxygen pulse ox 98%, breathing comfortable, in no acute distress HEAD: Normocephalic/atraumatic. EYES: Normal reaction of pupils, equal size. Conjunctiva pink, sclera white. NOSE: Clear with pink turbinates. THROAT: No erythema or exudates. NECK: No masses, no JVD, no thyroid enlargement, no adenopathy. CHEST: No chest wall deformity. Symmetrical expansion. LUNGS: Equal air entry with mild end expiratory wheezing CVS: Regular rate and rhythm, normal S1 and S2, no gallops, no murmurs, no rubs ABDOMEN: Soft, nontender. No hepatosplenomegaly, normal bowel sounds, no guarding or rigidity. EXTREMITIES: No clubbing, no edema, no cyanosis, 2+ pulses and upper and lower extremities. MUSCULOSKELETAL: Muscle strength and tone normal. SPINE: No scoliosis or deformity, back incision with dressing dry and intact. Lumbar support belt in place SKIN: No rashes CENTRAL NERVOUS SYSTEM: Awake and alert, oriented 3. No focal deficits, tone is normal in all 4 extremities. - Labs CBC & Chem 7: 01/26/22 05:17 01/26/22 05:17 Assessment and Plan Assessment: Chronic lower back pain related to suspected pathologic fracture of the level of T10 with unstable spine. Patient complained of weakness and radiculopathy hayde aterally, patient had metastatic foci at the level of L1 spine on the PET scan, MRI of the C-spine and the brain was negative for metastasis. Patient is status post surgical stabilization of T7 through L1 and tumor biopsy of spine on 01/23/[address] Moreno. 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 Routine postoperative ventilator management, patient remained on mechanical ventilator after surgery overnight, successfully weaned and extubated on 01/24/2022 Lung mass/lung nodule, CT scan of the chest and the PET scan revealed a 1.7 cm right lower lobe pulmonary nodule with increased uptake on the PET scan an SUV of 9.54, and a right hilar lymph node with an SUV of 23. Patient also had intense uptake within the sternum with SUV of 16.06, besides these findings were highly suspicious for metastatic lung cancer. T10 bone biopsied and positive for metastatic pulmonary adenocarcinoma. History of COPD, advanced, stage III with FEV1 of 32% of predicted at baseline, patient has a combination of obstructive and restrictive pulmonary physiology related to morbid obesity and history of COPD Morbid obesity with BMI 42.2 kg/m Stasis dermatitis of bilateral lower extremities related to chronic peripheral venous hypertension with secondary ulcerations Chronic back pain Plan: The patient was seen and evaluated Able to be up in a chair at the bedside MRI of the brain revealed no metastasis Stable and on 3 L nasal cannula Continue with the use of the incentive spirometer Titrate down the FiO2 as tolerated Pain is currently fairly well controlled Working well with physical therapy We will continue to follow I have personally seen and examined the patient, performed the documentation and the assessment and plan as written. Number of minutes spent on the visit: 10.
[2022-01-28] MEDS ORDERED: MAGNESIUM CITRATE 296 ML BOTTLE PO ONE (17:44)
--- NOTE | 2022-01-28 17:45 | P.PN ---
Progress Note - Text Progress Note Date: 01/28/22 Patient is a 71-year-old male with a known history of bowel resection and chronic back pain presents to ER with complaints of severe intractable back pain and almost fell to the ground because of severe back pain. Patient was found to have a destructive lesion at the T10 and also newly diagnosed pulmonary nodule with possible metastasis. 01/19/2022. Patient is currently lying in the bed. Still complains of back pain. Denies any complaints of numbness or tingling of the lower extremities. No bowel or bladder incontinence. Patient is on Weaver catheter currently. No fever no chills. No cough or sputum production. No headache or dizziness or lightheadedness. continued on dexamethasone 6 mg every 6 hourly. Also on Flexeril and Dilaudid and also on methadone 2.5 mg every 12. Laboratory showed WBC 6.6 hemoglobin 14.0 and platelets 192 Sodium 139 potassium 4.9 chloride 102 bicarb is 25.8 and BUN 17.0 and creatinine 0.8 and calcium 8.4. Pulmonary and orthopedic surgery is on board. Thoracic and lumbar spine CT showed some cord edema due to expansile T10 lesion causing posterior T10 vertebral body margin bulging. Lesion at the L1 level is less well impressive without spinal canal involvement. A 3 mm round intradural extramedullary suspected enhancing lesion superior L4 level is nonspecific but concerning for possible drop metastatic focus. 01/20/2022. Patient is currently lying in the bed. Awake alert and oriented x3. Currently on room air. No complaints of chest pain. Pain is fairly controlled with medications. Patient is scheduled for orthopedic surgery. 2D echocardiogram showed normal left ventricular size and systolic function. Mild TR and mild MR. Patient is undergoing CT head and cervical spine. Otherwise patient denies any cough or sputum production. No fever no chills. No nausea vomiting abdominal pain or diarrhea. 01/21/2022 Patient is currently resting in bed comfortably. Awake alert and oriented x3. Back pain is controlled. Patient is steroids and muscle relaxants and narcotic pain medications. No complaints of chest pain or worsening shortness of breath. No fever no chills. MRI of the brain, cervical MRI showed white matter changes in the periventricular region more likely related to chronic microvascular ischemic change. No abdominal enhancement or other changes to suggest metastatic disease is identified. Cardiology and pulmonary is on board and patient is scheduled for orthopedic surgery on Saturday. January 23: I assumed care of patient today. Laying in bed. Nothing by mouth. Pending surgery later this afternoon. No new issues. Back pain present. January 24: Patient underwent spinal surgery yesterday.T9-T11 laminectomy. Arthrodesis. Excision of intraspinal neoplasm. ICU: Laying in bed. Pain is controlled.. Liquid diet. Son is at the bedside. Hemovac in place January 25: ICU. Eating well." Able to movelower extremity Pain well controlled. January 26: Oral intake good. No BM. Metamucil added. Pain well controlled. Patient took a few steps with PT. January 27: No BM. Oral intake good. MRI of the brain done today. Pain well controlled. Discussed with the patient and son at the bedside. January 28: No BM. Magnesium citrate ordered. Pain control. No new issues. Active Medications Acetaminophen (Acetaminophen Tab 325 Mg Tab) 650 mg PO Q6HR PRN PRN Reason: Mild Pain or Fever > 100.5 Albuterol/Ipratropium (Ipratropium-Albuterol 3 Ml Neb) 3 ml INHALATION RT-QID [facility] Last Admin: 01/28/22 15:45 Dose: 3 ml Cyclobenzaprine HCl (Cyclobenzaprine 10 Mg Tab) 10 mg PO TID [facility] Last Admin: 01/28/22 16:29 Dose: 10 mg Dexamethasone Sodium Phosphate (Dexamethasone Sod Phosphate 4 Mg/Ml 1 Ml Vial) 1 mg IVP Q8HR [facility] Stop: 01/29/22 06:00 Last Admin: 01/28/22 16:29 Dose: 1 mg Furosemide (Furosemide 20 Mg Tab) 20 mg PO DAILY [facility] Last Admin: 01/28/22 07:39 Dose: 20 mg Gabapentin (Gabapentin 300 Mg Cap) 300 mg PO TID [facility] Last Admin: 01/28/22 16:29 Dose: 300 mg Heparin Sodium (Porcine) (Heparin Sodium,Porcine/Pf 5,000 Unit/0.5 Ml Syringe) 5,000 unit SQ Q12HR [facility] Last Admin: 01/28/22 07:40 Dose: 5,000 unit Hydromorphone HCl (Hydromorphone 0.5 Mg/0.5 Ml Syringe) 0.5 mg IVP Q3HR PRN PRN Reason: Moderate Pain Hydromorphone HCl (Hydromorphone 1 Mg/Ml 1 Ml Syringe) 1 mg IVP Q3HR PRN PRN Reason: Severe Pain Last Admin: 01/24/22 12:19 Dose: 1 mg Sodium Chloride (Saline 0.9%) 1,000 mls @ 20 mls/hr IV .Q24H [facility] Last Admin: 01/28/22 07:40 Dose: 20 mls/hr Lactated Ringer's (Lactated Ringers) 1,000 mls @ 20 mls/hr IV .Q24H [facility] Last Admin: 01/28/22 07:41 Dose: Not Given Lidocaine HCl (Lidocaine 1% (10mg/Ml) For Iv Start) 0.1 ml INTRADERMA PER PROT OCOL PRN PRN Reason: IV Start Magnesium Citrate (Magnesium Citrate 296 Ml Bottle) 296 ml PO ONCE ONE Stop: 01/28/22 17:45 Methadone HCl (Methadone 5 Mg Tab) 2.5 mg PO Q12H [facility] Last Admin: 01/28/22 16:29 Dose: 2.5 mg Metoprolol Tartrate (Metoprolol Tartrate 50 Mg Tab) 50 mg PO BID [facility] Last Admin: 01/28/22 07:39 Dose: 50 mg Naloxone HCl (Naloxone 0.4 Mg/Ml 1 Ml Vial) 0.2 mg IV Q2M PRN PRN Reason: Opioid Reversal Ondansetron HCl (Ondansetron 4 Mg/2 Ml Vial) 4 mg IVP Q8HR PRN PRN Reason: Nausea And Vomiting Last Admin: 01/23/22 16:11 Dose: 4 mg Oxycodone/Acetaminophen (Oxycodone-Apap 7.5-325mg 1 Each Tab) 1 each PO Q6HR PRN PRN Reason: Pain Last Admin: 01/27/22 12:20 Dose: 1 each Pantoprazole Sodium (Pantoprazole 40 Mg Tablet) 40 mg PO AC-BRKFST [facility] Last Admin: 01/28/22 07:38 Dose: 40 mg Potassium Chloride (Potassium Chloride Er 10 Meq Tab.Er.Prt) 10 meq PO DAILY [facility] Last Admin: 01/28/22 07:38 Dose: 10 meq Psyllium Hydrophilic Mucilloid (Psyllium Husk 100% 6 Gm Packet) 6 gm PO DAILY [facility] Last Admin: 01/28/22 07:39 Dose: 6 gm On examination: VITAL SIGNS: 97.8, 66, 17, 122/66, 99% room air GENERAL APPEARANCE: Laying in bed, awake, comfortable. HEENT: Normal external appearance of nose and ear. Oral cavity normal EYES: Pupils equal. Conjunctiva normal. NECK: JVD not raised. Mass not palpable. RESPIRATORY: Respiratory effort normal. Lungs clear to auscultation. CARDIOVASCULAR: First and second sounds normal. No edema. ABDOMEN: Soft. Liver and spleen not palpable. No tenderness. No mass palpable. PSYCHIATRY: Alert and oriented x3. Mood and affect normal. 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 January 26: Hemoglobin 11.2 creatinine 0.8 January 24: White count 11 hemoglobin 13.5 platelets 207 potassium 4.5 creatinine 0.87 White count 8 hemoglobin 14.3 platelets 238 potassium 4.5 creatinine 0.7 MRI brain and C-spine with and without contrast: White matter changes and periventricular region. Most likely chronic microvascular ischemic changes. Tobacco lumbar spine MRI with and without contrast: Some cord edema due to expansile T10 lesion causing posterior T10 1 to be bony margin bulging. Add joining findings suggestive may be metastatic disease Assessment and plan: -Acute on chronic low back pain with T10 compression fracture from malignancy January 23: Underwent laminectomy, excision of tumor. -Newly diagnosed lung mass/nodule. possible Pulmonary primary. Patient had PET scan and CT chest recently. 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 -COPD in a previous smoker. DuoNeb -Acute postprocedure blood loss anemia expected from surgery IV iron -Acute medical debility and gait dysfunction from malignancy and surgery PTOT -Acute constipation, multifactorial Has failed regular laxatives. Give magnesium citrate. Decadron taper. Give magnesium citrate. Other medications to continue.
[2022-01-29] MEDS: METHADONE 5 MG TAB PO SCH ×2 (05:25→17:38)
[2022-01-29] MEDS: POTASSIUM CHLORIDE ER 10 MEQ TAB.ER.PRT PO SCH (06:47)
[2022-01-29] MEDS: GABAPENTIN 300 MG CAP PO SCH ×3 (06:47→21:19)
[2022-01-29] MEDS: METOPROLOL TARTRATE 50 MG TAB PO SCH ×2 (06:47→21:19)
[2022-01-29] MEDS: CYCLOBENZAPRINE 10 MG TAB PO SCH ×3 (06:47→21:19)
[2022-01-29] MEDS: FUROSEMIDE 20 MG TAB PO SCH (06:47)
[2022-01-29] MEDS: PANTOPRAZOLE 40 MG TABLET PO SCH (06:47)
[2022-01-29] MEDS: HEPARIN SODIUM,PORCINE/PF 5,000 UNIT/0.5 ML SYRINGE SQ SCH ×2 (06:48→21:18)
[2022-01-29] MEDS: PSYLLIUM HUSK 100% 6 GM PACKET PO SCH (06:50)
[2022-01-29] MEDS: IPRATROPIUM-ALBUTEROL 3 ML NEB INHALATION SCH ×4 (07:05→20:39)
[2022-01-29] MEDS: LACTATED RINGERS 1,000 ML IV SCH (08:28)
[2022-01-29] MEDS: SODIUM CHLORIDE 0.9% 1,000 ML IV SCH (08:28)
--- NOTE | 2022-01-29 08:59 | P.PN ---
Subjective Progress Note Date: 01/29/22 Principal diagnosis: Back Pain Patient seen and examined at bedside. Mr. López was laying in bed this morning with HOB elevated. Patient states that his pain is controlled on current regimen. Encouraged patient to work with physical therapy today and increased time being up as tolerated. Discussed with patient about going to rehab within the next 24-48 hours, patient verbalizes that him and his family have decided on a facility. Patient denies any numbness or tingling to bilateral groin or bilateral lower extremities. Pt is urinating without difficulty. Patient has not had a BM, medicine has prescribed medications to assist patient. Patient has been afebrile, denies nausea/vomiting, or chest pain. Objective - Vital Signs Vital signs: Vital Signs Temp 98.5 F 01/29/22 02:00 Pulse 80 01/29/22 07:17 Resp 18 01/29/22 07:17 BP 144/83 01/29/22 02:00 Pulse Ox 93 L 01/29/22 07:05 FiO2 40 01/24/22 15:49 Intake & Output 01/28/22 01/29/22 01/29/22 18:59 06:59 18:59 Intake Total 120 Output Total 1400 Balance -1280 Intake: IV 120 Sodium Chloride 0.9% 1, 120 000 ml @ 20 mls/hr IV . Q24H [facility] Rx#:[id number] Output: Urine 1400 Other: Voiding Method Indwelling Catheter # Voids 1 4 ABP, PAP, CO, CI - Last Documented Arterial Blood Pressure 0/0 - Exam Physical Examination General: The patient is awake and alert, in no acute distress Skin: Skin is warm and dry with no obvious rashes or lesions. Hairy patches absent, no dorsal skin dimples, no cafe au lait spots. Surgical incision to lumbar region Eye: Pupils are equal, round and reactive to light, extra-ocular movements are intact; there is normal conjunctiva bilaterally. Neck: The neck is supple, there is no tenderness and ROM intact. Cardiovascular: There is a regular rate and rhythm. No murmur, rub or gallop is appreciated. Respiratory: Lungs are diminished to auscultation, respirations are non- labored, breath sounds are equal. Gastrointestinal: Soft, non-distended, non-tender abdomen . Back: There is slight tenderness to palpation in the paralumbar region. There is no obvious deformity . Musculoskeletal: Lumbar ROM limited secondary to pain, UPPER EXTREMITY Shoulder abduction 5/5, elbow flexors 5/5, wrist dorsiflexors 5/5. finger abductor 5/5, call center trainer 5/5, LOWER EXTREMITY Hip Flexor (Not part of PAUL Motor Score): RIGHT 4 LEFT 4 secondary to pain from procedure Knee Flexor: RIGHT 4 LEFT 4 secondary to pain from procedure Knee Extensor: RIGHT 4 LEFT 4 secondary to pain from procedure Ankle Dorsiflexion: RIGHT [5] LEFT [5] Ankle Plantarflexion: RIGHT [5] LEFT [5] EHL: RIGHT [5] LEFT [5] FHL: RIGHT [5] LEFT [5] Neurological: CN 2-12 intact. There are no obvious motor or sensory deficits. Movement and coordination equal and intact. Sensory exam to light touch intact C5-T1 and intact from L2-S1. Reflexes 2/4 in bilateral upper and lower extremities. Negative Hoffmans, babinski, and clonus signs. Psychiatric: Cooperative, appropriate mood & affect, normal judgment. - Labs CBC & Chem 7: 01/26/22 05:17 01/26/22 05:17 Assessment and Plan Assessment: Postoperative day #6 status post T8-T12 decompression with posterior lateral stabilization, tumor resection Bilateral lower extremity radiculopathy Bilateral lower extremity weakness Plan: Plan: -Appreciate cardiology clinical consultant and team management. -Activity: as tolerated -Pain control: Adequate at this time -Meds: reviewed -GI ppx: senna, Miralax -DVT PPX: TEDS, SCDs -Encourage IS 10x/hr -Dispo: Anticipate [facility] within 24-48hrs *I reviewed and discussed this case with my attending Dr. Moreno, whom has reviewed this chart and films and is in agreement with assessment and plan of care as outlined above. I have personally seen and examined the patient, performed the documentation and the assessment and plan as written. Number of minutes spent on the visit: 20m.
[2022-01-29] MEDS ORDERED: SENNOSIDES 8.6 MG TAB PO SCH (10:45)
[2022-01-29] MEDS: dexAMETHasone 4 MG TAB PO SCH ×3 (11:35→21:19)
--- NOTE | 2022-01-29 13:29 | P.PN ---
Subjective Progress Note Date: 01/29/22 71-year-old male patient referred to me for a pulmonary nodule with a concern of underlying malignancy. This is a morbidly obese white male patient who is quite debilitated due to chronic back problems and arthritis. The patient has been living independently and [place] and he has been very limited in terms of his exercise capacity due to chronic back pain. Currently is taking methadone as maintenance for chronic back pain and takes Lamoni on an as-needed basis. He moves around with help of a walker. Despite his limitations due to his obesity and his chronic back pain, the patient has been able to live independently. Denies having any respiratory difficulties. No reported cough sputum production chest tightness or wheezing. No hemoptysis. Recently, he had his dog jump on his chest which she thought caused some injury to his thoracic cage. He was complaining of pain and further investigation was done including a a CT that was done on 11/17/2021 that showed a lobulated spiculated 1.7 cm nodule in the right lung base, 7 mm pulmonary nodule in the right lower lobe and a 6 mm nodule in the right minor fissure.there was also evidence of centrilobular emphysema in the upper lobes and dependent atelectatic changes. This was followed up by a PET/CT that was done on 01/08/2022 and the PET scan showed increased FDG activity within the 1.7 cm nodule in the right lung base with an SUV of 9.54. In addition, there was a right hilar lymph node with a maximum SUV of 23. No abdominal metabolic activity within the abdomen. No activity within the pelvis. In terms of the bony structures, there was a metastatic deposit in the sternum with a maximum SUV of 16.06 and another T1 vertebral body lesion on the left and some metastatic deposits extending from T10 through L4 vertebral bodies. The findings were compatible with metastatic lung cancer and the patient was referred to me accordingly. There was some vague activity in the right parotid gland also. The patient is an ex-smoker. He has worked for the automotive industry in the past. this patient is morbidly obese. Denies having obstructive sleep apnea. He has chronic venous stasis and chronic edema lower extremities along with some chroni c skin ulceration the legs for which she is doing wound care. No altered mentation. No headaches. He has exertional dyspnea. No dyspnea at rest. No angina. No palpitation. No cardiac arrhythmias. No recurrent pneumonias. No recurrent bronchitis and no history of any DVT or pulmonary embolism. . . No reported history of change in his voice quality, hoarseness, or hemoptysis. The patient doesn't utilize any form of respiratory medications or inhalers. He been on Lasix regarding his chronic lower extremity edema. I saw this patient my office on 01/17/2022 and I was planning to proceed with a lung biopsy. After the patient left my office, the patient became weak in the lower extremities to the point where he collapsed and he was unable to walk. The patient's stated that he had also some chronic back pain and was progressively getting more weak. He also reported some tingling in lower ext remity is bilaterally. He had good strength in his upper extremities. No loss in the bowel and bladder control. Based on that, he presented himself to the MRSA problem and the patient's underwent further investigation. CAT scan of the lumbar spine was done and it showed facet arthrosis at the level of L4-L5 and L5-S1 which is moderate to severe in nature along with lumbar lordosis. The level of T10, there is a fracture which has the features of a pathologic fracture and there is a lytic bony destruction noted anteriorly within the vertebral body that tracks down into the pedicles. There is also retropulsion of the posterior body wall into the spinal canal. The patient was seen by spine surgery. There was a concern for the posterior column involvement and potentially stability of the spine. There was also an anterior largest synthetic changes of the adjacent segments. There was also an L1 vertebral body lesion and other lytic foci at the level of T12. Based on all this, the patient is being considered for surgical stabilization of the spine. This may be an opportunity also to establish tissue diagnosis of this patient. For now, the patient on Decadron. He is resting, comfortably in bed. No Tay shortness of breath. Note that his FEV1 was also low in the spirometry. In my office showed a combination of obstructive and restrictive physiology. His FEV1 was in order of 32% of predicted. 01/29/2022, the patient sitting up comfortably on the recliner. No respiratory difficulties. Using incentive spirometer. Tolerating his diet. His pain is under good control and today's postop day #6. He is looking to go to rehabilitation at [facility]. He does have no major difficulties in breathing. He has chronic edema lower extremity bilaterally. His blood work from today shows a white cell count was 7.9 with a hemoglobin of 11.2 and normal electrolytes. He remains on Decadron. He remains on pain control using methadone 2.5 mg twice a day and is using also Percocet 7.5 one tablet every 6 hours on a when necessary basis. Objective - Vital Signs Vital signs: Vital Signs Temp 97.6 F 01/29/22 08:53 Pulse 80 01/29/22 11:20 Resp 16 01/29/22 11:20 BP 152/86 01/29/22 08:53 Pulse Ox 89 L 01/29/22 08:53 FiO2 40 01/24/22 15:49 Intake & Output 01/28/22 01/29/22 01/29/22 18:59 06:59 18:59 Intake Total 120 Output Total 1400 Balance -1280 Intake: IV 120 Sodium Chloride 0.9% 1, 120 000 ml @ 20 mls/hr IV . Q24H [facility] Rx#:[id number] Output: Urine 1400 Other: Voiding Method Indwelling Catheter Urinal # Voids 1 4 # Bowel Movements 1 ABP, PAP, CO, CI - Last Documented Arterial Blood Pressure 0/0 - Exam GENERAL EXAM: 71-year-old male, awake and alert, up in a chair at the bedside, 3 L of oxygen pulse ox 98%, breathing comfortable, in no acute distress HEAD: Normocephalic/atraumatic. EYES: Normal reaction of pupils, equal size. Conjunctiva pink, sclera white. NOSE: Clear with pink turbinates. THROAT: No erythema or exudates. NECK: No masses, no JVD, no thyroid enlargement, no adenopathy. CHEST: No chest wall deformity. Symmetrical expansion. LUNGS: Equal air entry with mild end expiratory wheezing CVS: Regular rate and rhythm, normal S1 and S2, no gallops, no murmurs, no rubs ABDOMEN: Soft, nontender. No hepatosplenomegaly, normal bowel sounds, no guarding or rigidity. EXTREMITIES: No clubbing, no edema, no cyanosis, 2+ pulses and upper and lower extremities. MUSCULOSKELETAL: Muscle strength and tone normal. SPINE: No scoliosis or deformity, back incision with dressing dry and intact. Lumbar support belt in place SKIN: No rashes CENTRAL NERVOUS SYSTEM: Awake and alert, oriented 3. No focal deficits, tone is normal in all 4 extremities. - Labs CBC & Chem 7: 01/26/22 05:17 01/26/22 05:17 Assessment and Plan Plan: Chronic lower back pain related to suspected pathologic fracture of the level of T10 with unstable spine. Patient complained of weakness and radiculopathy bilaterally, patient had metastatic foci at the level of L1 spine on the PET scan, MRI of the C-spine and the brain was negative for metastasis. Patient is status post surgical stabilization of T7 through L1 and tumor biopsy of spine on 01/23/[address] Moreno. 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 Patient is postop day #6. The patient is doing well. He is wearing a back brace. Pain is under adequate control. Final pathology is also available. Routine postoperative ventilator management, patient remained on mechanical ventilator after surgery overnight, successfully weaned and extubated on 01/24/2022 Lung mass/lung nodule, CT scan of the chest and the PET scan revealed a 1.7 cm right lower lobe pulmonary nodule with increased uptake on the PET scan an SUV of 9.54, and a right hilar lymph node with an SUV of 23. Patient also had intense uptake within the sternum with SUV of 16.06, besides these findings were highly suspicious for metastatic lung cancer. T10 bone biopsied and positive for metastatic pulmonary adenocarcinoma. History of COPD, advanced, stage III with FEV1 of 32% of predicted at baseline, patient has a combination of obstructive and restrictive pulmonary physiology related to morbid obesity and history of COPD Morbid obesity with BMI 42.2 kg/m Stasis dermatitis of bilateral lower extremities related to chronic peripheral venous hypertension with secondary ulcerations Chronic back pain Plan Clinically stable Respiratory status is stable Continue Decadron Back brace Percocet for pain control Incentive spirometer May need rehabilitation at [facility]
--- NOTE | 2022-01-29 18:29 | P.PN ---
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 He is ambulating with assistance and walker Objective - Vital Signs Vital signs: Vital Signs Temp 98.5 F 01/29/22 02:00 Pulse 80 01/29/22 07:17 Resp 18 01/29/22 07:17 BP 144/83 01/29/22 02:00 Pulse Ox 93 L 01/29/22 07:05 FiO2 40 01/24/22 15:49 Intake & Output 01/28/22 01/29/22 01/29/22 18:59 06:59 18:59 Intake Total 120 Output Total 1400 Balance -1280 Intake: IV 120 Sodium Chloride 0.9% 1, 120 000 ml @ 20 mls/hr IV . Q24H [facility] Rx#:[id number] Output: Urine 1400 Other: Voiding Method Indwelling Catheter # Voids 1 4 # Bowel Movements 1 ABP, PAP, CO, CI - Last Documented Arterial Blood Pressure 0/0 - Constitutional General appearance: Present: cooperative, no acute distress, obese - EENT Eyes: Present: anicteric sclerae, EOMI ENT: Present: hearing grossly normal - Respiratory Details: resp even and unlabored at rest - Peripheral edema leg Peripheral Edema: bilateral: 1+ - Neurologic Neurologic: Present: CNII-XII intact (grossly) - Psychiatric Psychiatric: Present: A&O x's 3, appropriate affect, intact judgment & insight - Labs CBC & Chem 7: 01/26/22 05:17 01/26/22 05:17 - Imaging and Cardiology MRI - head: report reviewed (no metastatic disease) Assessment and Plan (1) Adenocarcinoma, lung Current Visit: Yes Status: Acute Priority: High Code(s): C34.90 - MALIGNANT NEOPLASM OF UNSP PART OF UNSP BRONCHUS OR LUNG SNOMED Code(s): 140323368 (2) Compression of spinal cord Current Visit: Yes Status: Acute Priority: High Code(s): G95.20 - UNSPECIFIED CORD COMPRESSION SNOMED Code(s): 97312711 Plan: New diagnosis of NSCLC, path from soft tissue mass/vertebral mets. Pt is s/p surgery for cord compression. He is doing fairly well and is able to ambulate. Discussed with Masonry Instructor, pt is going to rehab at [facility]. Will plan for f/u after DC to home. Will plan for treatment after adequate rehabilitation and back home. Rx given for steroid taper to cont while in rehab and to complete what is left when he is discharged. PPI ordered for prevention of steroid induced gastritis. MRI brain neg for malignancy Pt is going to be coming from [place]-he is ok with that. Pending NGS tresting, PD-L1 Pt verbalized understanding the plan.
--- NOTE | 2022-01-29 22:27 | P.PN ---
Progress Note - Text Progress Note Date: 01/29/22 Patient is a 71-year-old male with a known history of bowel resection and chronic back pain presents to ER with complaints of severe intractable back pain and almost fell to the ground because of severe back pain. Patient was found to have a destructive lesion at the T10 and also newly diagnosed pulmonary nodule with possible metastasis. 01/19/2022. Patient is currently lying in the bed. Still complains of back pain. Denies any complaints of numbness or tingling of the lower extremities. No bowel or bladder incontinence. Patient is on Weaver catheter currently. No fever no chills. No cough or sputum production. No headache or dizziness or lightheadedness. continued on dexamethasone 6 mg every 6 hourly. Also on Flexeril and Dilaudid and also on methadone 2.5 mg every 12. Laboratory showed WBC 6.6 hemoglobin 14.0 and platelets 192 Sodium 139 potassium 4.9 chloride 102 bicarb is 25.8 and BUN 17.0 and creatinine 0.8 and calcium 8.4. Pulmonary and orthopedic surgery is on board. Thoracic and lumbar spine CT showed some cord edema due to expansile T10 lesion causing posterior T10 vertebral body margin bulging. Lesion at the L1 level is less well impressive without spinal canal involvement. A 3 mm round intradural extramedullary suspected enhancing lesion superior L4 level is nonspecific but concerning for possible drop metastatic focus. 01/20/2022. Patient is currently lying in the bed. Awake alert and oriented x3. Currently on room air. No complaints of chest pain. Pain is fairly controlled with medications. Patient is scheduled for orthopedic surgery. 2D echocardiogram showed normal left ventricular size and systolic function. Mild TR and mild MR. Patient is undergoing CT head and cervical spine. Otherwise patient denies any cough or sputum production. No fever no chills. No nausea vomiting abdominal pain or diarrhea. 01/21/2022 Patient is currently resting in bed comfortably. Awake alert and oriented x3. Back pain is controlled. Patient is steroids and muscle relaxants and narcotic pain medications. No complaints of chest pain or worsening shortness of breath. No fever no chills. MRI of the brain, cervical MRI showed white matter changes in the periventricular region more likely related to chronic microvascular ischemic change. No abdominal enhancement or other changes to suggest metastatic disease is identified. Cardiology and pulmonary is on board and patient is scheduled for orthopedic surgery on Saturday. January 23: I assumed care of patient today. Laying in bed. Nothing by mouth. Pending surgery later this afternoon. No new issues. Back pain present. January 24: Patient underwent spinal surgery yesterday.T9-T11 laminectomy. Arthrodesis. Excision of intraspinal neoplasm. ICU: Laying in bed. Pain is controlled.. Liquid diet. Son is at the bedside. Hemovac in place January 25: ICU. Eating well." Able to movelower extremity Pain well controlled. January 26: Oral intake good. No BM. Metamucil added. Pain well controlled. Patient took a few steps with PT. January 27: No BM. Oral intake good. MRI of the brain done today. Pain well controlled. Discussed with the patient and son at the bedside. January 28: No BM. Magnesium citrate ordered. Pain control. No new issues. January 29: Patient is a very large bowel movement. Did need several initial disimpaction. Maintained on laxatives. Rehab was declined at [facility]. Patient did took a few steps to the bathroom with a walker. Active Medications Acetaminophen (Acetaminophen Tab 325 Mg Tab) 650 mg PO Q6HR PRN PRN Reason: Mild Pain or Fever > 100.5 Albuterol/Ipratropium (Ipratropium-Albuterol 3 Ml Neb) 3 ml INHALATION RT-QID [facility] Last Admin: 01/29/22 20:39 Dose: 3 ml Cyclobenzaprine HCl (Cyclobenzaprine 10 Mg Tab) 10 mg PO TID [facility] Last Admin: 01/29/22 21:19 Dose: 10 mg Dexamethasone (Dexamethasone 4 Mg Tab) 4 mg PO TID [facility] Stop: 02/04/22 22:01 Last Admin: 01/29/22 21:19 Dose: 4 mg Dexamethasone (Dexamethasone 4 Mg Tab) 4 mg PO BID [facility] Stop: 02/11/22 21:01 Dexamethasone (Dexamethasone 4 Mg Tab) 4 mg PO DAILY [facility] Stop: 02/18/22 23:00 Dexamethasone (Dexamethasone 2 Mg Tab) 2 mg PO DAILY [facility] Stop: 02/25/22 09:01 Furosemide (Furosemide 20 Mg Tab) 20 mg PO DAILY [facility] Last Admin: 01/29/22 06:47 Dose: 20 mg Gabapentin (Gabapentin 300 Mg Cap) 300 mg PO TID [facility] Last Admin: 01/29/22 21:19 Dose: 300 mg Heparin Sodium (Porcine) (Heparin Sodium,Porcine/Pf 5,000 Unit/0.5 Ml Syringe) 5,000 unit SQ Q12HR [facility] Last Admin: 01/29/22 21:18 Dose: 5,000 unit Hydromorphone HCl (Hydromorphone 0.5 Mg/0.5 Ml Syringe) 0.5 mg IVP Q3HR PRN PRN Reason: Moderate Pain Hydromorphone HCl (Hydromorphone 1 Mg/Ml 1 Ml Syringe) 1 mg IVP Q3HR PRN PRN Reason: Severe Pain Last Admin: 01/24/22 12:19 Dose: 1 mg Sodium Chloride (Saline 0.9%) 1,000 mls @ 20 mls/hr IV .Q24H [facility] Last Admin: 01/29/22 08:28 Dose: Not Given Lactated Ringer's (Lactated Ringers) 1,000 mls @ 20 mls/hr IV .Q24H [facility] Last Admin: 01/29/22 08:28 Dose: Not Given Lidocaine HCl (Lidocaine 1% (10mg/Ml) For Iv Start) 0.1 ml INTRADERMA PER PROTOCOL PRN PRN Reason: IV Start Methadone HCl (Methadone 5 Mg Tab) 2.5 mg PO Q12H [facility] Last Admin: 01/29/22 17:38 Dose: 2.5 mg Metoprolol Tartrate (Metoprolol Tartrate 50 Mg Tab) 50 mg PO BID [facility] Last Admin: 01/29/22 21:19 Dose: 50 mg Naloxone HCl (Naloxone 0.4 Mg/Ml 1 Ml Vial) 0.2 mg IV Q2M PRN PRN Reason: Opioid Reversal Ondansetron HCl (Ondansetron 4 Mg/2 Ml Vial) 4 mg IVP Q8HR PRN PRN Reason: Nausea And Vomiting Last Admin: 01/23/22 16:11 Dose: 4 mg Oxycodone/Acetaminophen (Oxycodone-Apap 7.5-325mg 1 Each Tab) 1 each PO Q6HR PRN PRN Reason: Pain Last Admin: 01/27/22 12:20 Dose: 1 each Pantoprazole Sodium (Pantoprazole 40 Mg Tablet) 40 mg PO AC-BRKFST [facility] Last Admin: 01/29/22 06:47 Dose: 40 mg Potassium Chloride (Potassium Chloride Er 10 Meq Tab.Er.Prt) 10 meq PO DAILY [facility] Last Admin: 01/29/22 06:47 Dose: 10 meq Psyllium Hydrophilic Mucilloid (Psyllium Husk 100% 6 Gm Packet) 6 gm PO DAILY [facility] Last Admin: 01/29/22 06:50 Dose: Not Given Senna (Sennosides 8.6 Mg Tab) 8.6 mg PO DAILY [facility] Last Admin: 01/29/22 11:35 Dose: 8.6 mg On examination: VITAL SIGNS: 97.6, 84, 20, 1 10 x 70, 92% on 2 L GENERAL APPEARANCE: Laying in bed, awake, comfortable. HEENT: Normal external appearance of nose and ear. Oral cavity normal EYES: Pupils equal. Conjunctiva normal. NECK: JVD not raised. Mass not palpable. RESPIRATORY: Respiratory effort normal. Lungs clear to auscultation. CARDIOVASCULAR: First and second sounds normal. No edema. ABDOMEN: Soft. Liver and spleen not palpable. No tenderness. No mass palpable. PSYCHIATRY: Alert and oriented x3. Mood and affect normal. 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 January 26: Hemoglobin 11.2 creatinine 0.8 January 24: White count 11 hemoglobin 13.5 platelets 207 potassium 4.5 creatinine 0.87 White count 8 hemoglobin 14.3 platelets 238 potassium 4.5 creatinine 0.7 MRI brain and C-spine with and without contrast: White matter changes and periventricular region. Most likely chronic microvascular ischemic changes. Tobacco lumbar spine MRI with and without contrast: Some cord edema due to expansile T10 lesion causing posterior T10 1 to be bony margin bulging. Add joining findings suggestive may be metastatic disease Assessment and plan: -Acute on chronic low back pain with T10 compression fracture from malignancy January 23: Underwent laminectomy, excision of tumor. -Newly diagnosed lung mass/nodule. possible Pulmonary primary. Patient had PET scan and CT chest recently. 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 -COPD in a previous smoker. DuoNeb -Acute postprocedure blood loss anemia expected from surgery IV iron -Acute medical debility and gait dysfunction from malignancy and surgery PTOT -Acute constipation, multifactorial Had a large BM. Continue laxatives Decadron taper. Pending transfer to rehab. Discussed with patient. Follow with showcase trimmer
[2022-01-30] MEDS: METHADONE 5 MG TAB PO SCH (05:05)
[2022-01-30] MEDS ORDERED: SENNOSIDES 8.6 MG TAB PO PRN (07:03)
--- NOTE | 2022-01-30 07:28 | P.PN ---
Subjective Progress Note Date: 01/30/22 Principal diagnosis: Back Pain Patient seen and examined at bedside. Mr. López was laying in bed this morning with HOB elevated. RN stated that patient had an assisted fall to the floor yesterday as patient was attempting to ambulate to the restroom. No direct injury noted. RN assisted pt to floor. Patient denies any numbness or tingling to bilateral groin or bilateral lower extremities. Pt is urinating without difficulty. Patient states he has had a large BM and is feeling better than yesterday morning. Patient is anticipating going to [facility] pending auth. Patient has been afebrile, denies nausea/vomiting, or chest pain. Objective - Vital Signs Vital signs: Vital Signs Temp 98.1 F 01/30/22 02:00 Pulse 58 L 01/30/22 02:00 Resp 17 01/30/22 02:00 BP 151/80 01/30/22 03:46 Pulse Ox 93 L 01/30/22 02:00 FiO2 40 01/24/22 15:49 Intake & Output 01/29/22 01/30/22 01/30/22 18:59 06:59 18:59 Other: Voiding Method Urinal # Voids 1 3 # Bowel Movements 1 1 ABP, PAP, CO, CI - Last Documented Arterial Blood Pressure 0/0 - Exam Physical Examination General: The patient is awake and alert, in no acute distress Skin: Skin is warm and dry with no obvious rashes or lesions. Hairy patches absent, no dorsal skin dimples, no cafe au lait spots. Surgical incision to lumbar region Eye: Pupils are equal, round and reactive to light, extra-ocular movements are intact; there is normal conjunctiva bilaterally. Neck: The neck is supple, there is no tenderness and ROM intact. Cardiovascular: There is a regular rate and rhythm. No murmur, rub or gallop is appreciated. Respiratory: Lungs are diminished to auscultation, respirations are non- labored, breath sounds are equal. Gastrointestinal: Soft, non-distended, non-tender abdomen . Back: There is slight tenderness to palpation in the paralumbar region. There is no obvious deformity . Musculoskeletal: Lumbar ROM limited secondary to pain, UPPER EXTREMITY Shoulder abduction 5/5, elbow flexors 5/5, wrist dorsiflexors 5/5. finger abductor 5/5, field reimbursement manager 5/5, LOWER EXTREMITY Hip Flexor (Not part of PAUL Motor Score): RIGHT 4 LEFT 4 secondary to pain from procedure Knee Flexor: RIGHT 4 LEFT 4 secondary to pain from procedure Knee Extensor: RIGHT 4 LEFT 4 secondary to pain from procedure Ankle Dorsiflexion: RIGHT [5] LEFT [5] Ankle Plantarflexion: RIGHT [5] LEFT [5] EHL: RIGHT [5] LEFT [5] FHL: RIGHT [5] LEFT [5] Neurological: CN 2-12 intact. There are no obvious motor or sensory deficits. Movement and coordination equal and intact. Sensory exam to light touch intact C5-T1 and intact from L2-S1. Reflexes 2/4 in bilateral upper and lower extremities. Negative Hoffmans, babinski, and clonus signs. Psychiatric: Cooperative, appropriate mood & affect, normal judgment. - Labs CBC & Chem 7: 01/26/22 05:17 06 05:17 Assessment and Plan Assessment: Postoperative day #7 status post T8-T12 decompression with posterior lateral sta bilization, tumor resection Bilateral lower extremity radiculopathy Bilateral lower extremity weakness Plan: Plan: -Appreciate program consultant and team management. -Activity: as tolerated -Pain control: Adequate at this time -Meds: reviewed -GI ppx: senna, Miralax -DVT PPX: MARIAMA SCDs -Encourage IS 10x/hr -Dispo: Anticipate [facility] today or tomorrow *I reviewed and discussed this case with my attending Dr. Moreno, whom has reviewed this chart and films and is in agreement with assessment and plan of care as outlined above. I have personally seen and examined the patient, performed the documentation and the assessment and plan as written. Number of minutes spent on the visit: 20m.
[2022-01-30] MEDS: IPRATROPIUM-ALBUTEROL 3 ML NEB INHALATION SCH ×3 (07:44→16:19)
[2022-01-30] MEDS: PSYLLIUM HUSK 100% 6 GM PACKET PO SCH (09:04)
[2022-01-30] MEDS: METOPROLOL TARTRATE 50 MG TAB PO SCH (09:04)
[2022-01-30] MEDS: GABAPENTIN 300 MG CAP PO SCH ×2 (09:04→15:15)
[2022-01-30] MEDS: CYCLOBENZAPRINE 10 MG TAB PO SCH ×2 (09:04→15:16)
[2022-01-30] MEDS: PANTOPRAZOLE 40 MG TABLET PO SCH (09:04)
[2022-01-30] MEDS: POTASSIUM CHLORIDE ER 10 MEQ TAB.ER.PRT PO SCH (09:04)
[2022-01-30] MEDS: FUROSEMIDE 20 MG TAB PO SCH (09:04)
[2022-01-30] MEDS: HEPARIN SODIUM,PORCINE/PF 5,000 UNIT/0.5 ML SYRINGE SQ SCH (09:04)
[2022-01-30] MEDS: dexAMETHasone 4 MG TAB PO SCH ×2 (09:12→15:15)
[2022-01-30] MEDS: LACTATED RINGERS 1,000 ML IV SCH (09:24)
[2022-01-30] MEDS: SODIUM CHLORIDE 0.9% 1,000 ML IV SCH (09:24)
--- NOTE | 2022-01-30 12:53 | P.DS ---
Providers Date of admission: 01/18/22 02:13 Expected date of discharge: 01/30/22 Attending physician: Hardik Kelley Consults: 01/18/22 02:14 Consult Physician Routine Consulting Provider: Daija Domínguez Consult Reason/Comments: Intractable back pain. Vertebral fractures Do you want consulting provider notified?: Yes 01/18/22 10:37 Consult Physician Urgent Consulting Provider: Brendan Moreno Consult Reason/Comments: T10 lytic lesion Do you want consulting provider notified?: Already Contacted 01/18/22 16:16 Consult Physician Routine Consulting Provider: Paulina Smith Consult Reason/Comments: pul noudle Do you want consulting provider notified?: Yes Consult Physician Routine Consulting Provider: Brendon Naranjo Consult Reason/Comments: malignancy Do you want consulting provider notified?: Yes 01/19/22 09:51 Consult Physician Routine Consulting Provider: Jonas Mantilla Consult Reason/Comments: cord compression Do you want consulting provider notified?: Yes, Notify in am Primary care physician: Tre [facility] Course: Patient is a 71-year-old male with a known history of bowel resection and chronic back pain presents to ER with complaints of severe intractable back pain and almost fell to the ground because of severe back pain. Patient was found to have a destructive lesion at the T10 and also newly diagnosed pulmonary nodule with possible metastasis. 01/19/2022. Patient is currently lying in the bed. Still complains of back pain. Denies any complaints of numbness or tingling of the lower extremities. No bowel or bladder incontinence. Patient is on Weaver catheter currently. No fever no chills. No cough or sputum production. No headache or dizziness or lightheadedness. continued on dexamethasone 6 mg every 6 hourly. Also on Flexeril and Dilaudid and also on methadone 2.5 mg every 12. Laboratory showed WBC 6.6 hemoglobin 14.0 and platelets 192 Sodium 139 potassium 4.9 chloride 102 bicarb is 25.8 and BUN 17.0 and creatinine 0.8 and calcium 8.4. Pulmonary and orthopedic surgery is on board. Thoracic and lumbar spine CT showed some cord edema due to expansile T10 lesion causing posterior T10 vertebral body margin bulging. Lesion at the L1 level is less well impressive without spinal canal involvement. A 3 mm round intradural extramedullary suspected enhancing lesion superior L4 level is nonspecific but concerning for possible drop metastatic focus. 01/20/2022. Patient is currently lying in the bed. Awake alert and oriented x3. Currently on room air. No complaints of chest pain. Pain is fairly controlled with medications. Patient is scheduled for orthopedic surgery. 2D echocardiogram showed normal left ventricular size and systolic function. Mild TR and mild MR. Patient is undergoing CT head and cervical spine. Otherwise patient denies any cough or sputum production. No fever no chills. No nausea vomiting abdominal pain or diarrhea. 01/21/2022 Patient is currently resting in bed comfortably. Awake alert and oriented x3. Back pain is controlled. Patient is steroids and muscle relaxants and narcotic pain medications. No complaints of chest pain or worsening shortness of breath. No fever no chills. MRI of the brain, cervical MRI showed white matter changes in the periventricular region more likely related to chronic microvascular ischemic change. No abdominal enhancement or other changes to suggest metastatic disease is identified. Cardiology and pulmonary is on board and patient is scheduled for orthopedic surgery on Saturday. January 23: I assumed care of patient today. Laying in bed. Nothing by mouth. Pending surgery later this afternoon. No new issues. Back pain present. January 24: Patient underwent spinal surgery yesterday.T9-T11 laminectomy. Arthrodesis. Excision of intraspinal neoplasm. ICU: Laying in bed. Pain is controlled.. Liquid diet. Son is at the bedside. Hemovac in place January 25: ICU. Eating well." Able to movelower extremity Pain well controlled. January 26: Oral intake good. No BM. Metamucil added. Pain well controlled. Patient took a few steps with PT. January 27: No BM. Oral intake good. MRI of the brain done today. Pain well controlled. Discussed with the patient and son at the bedside. January 28: No BM. Magnesium citrate ordered. Pain control. No new issues. January 29: Patient is a very large bowel movement. Did need several initial dis impaction. Maintained on laxatives. Rehab was declined at [facility] on. Patient did took a few steps to the bathroom with a walker. January 30: Stable. Pain control. DC to rehab today. We'll follow up with oncology after rehab is completed. Back brace. Has been walking to the bathroom with walker. Discussion and discharge planning more than 35 minutes On examination: VITAL SIGNS: 97.9, 73, 17, 165-78, 93% room air GENERAL APPEARANCE: Laying in bed, awake, comfortable. HEENT: Normal external appearance of nose and ear. Oral cavity normal EYES: Pupils equal. Conjunctiva normal. NECK: JVD not raised. Mass not palpable. RESPIRATORY: Respiratory effort normal. Lungs clear to auscultation. CARDIOVASCULAR: First and second sounds normal. No edema. ABDOMEN: Soft. Liver and spleen not palpable. No tenderness. No mass palpable. PSYCHIATRY: Alert and oriented x3. Mood and affect normal. 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 January 26: Hemoglobin 11.2 creatinine 0.8 January 24: White count 11 hemoglobin 13.5 platelets 207 potassium 4.5 creatinine 0.87 White count 8 hemoglobin 14.3 platelets 238 potassium 4.5 creatinine 0.7 MRI brain and C-spine with and without contrast: White matter changes and periventricular region. Most likely chronic microvascular ischemic changes. Tobacco lumbar spine MRI with and without contrast: Some cord edema due to expansile T10 lesion causing posterior T10 1 to be bony margin bulging. Add joining findings suggestive may be metastatic disease Assessment and plan: -Acute on chronic low back pain with T10 compression fracture from malignancy January 23: Underwent laminectomy, excision of tumor. Back brace Lung mass/lung nodule, CT scan of the chest and the PET scan revealed a 1.7 cm right lower lobe pulmonary nodule with increased uptake on the PET scan an SUV of 9.54, and a right hilar lymph node with an SUV of 23. Patient also had intense uptake within the sternum with SUV of 16.06, besides these findings were highly suspicious for metastatic lung cancer. T10 bone biopsied and positive for metastatic pulmonary adenocarcinoma. Being followed by pulmonary. -Morbid obesity BMI 42.1 Weight loss measures -Stasis dermatitis of bilateral lower extremity secondary to chronic peripheral venous insufficiency. -COPD in a previous smoker. DuoNeb -Acute postprocedure blood loss anemia expected from surgery IV iron -Acute medical debility and gait dysfunction from malignancy and surgery PTOT -Acute constipation, multifactorial Had a large BM. Continue laxatives Disposition: Rehab at [facility] Plan - Discharge Summary Discharge Rx Participant: No New Discharge Prescriptions: New Ipratropium-Albuterol Nebulize [Duoneb 0.5 mg-3 mg/3 ml Soln] 3 ml INHALATION TID each dexAMETHasone ORAL [Hexadrol] 2 mg PO DAILY tab dexAMETHasone ORAL [Hexadrol] 4 mg PO TID tab Metoprolol Tartrate [Lopressor] 50 mg PO BID tab Pantoprazole Sodium [Protonix] 40 mg PO DAILY #30 tab Sulfamethox-Tmp 800-160Mg [Bactrim DS 800-160 mg] 1 tab PO Q12HR 5 Days #10 tab Cyclobenzaprine [Flexeril] 10 mg PO TID #90 tab Gabapentin 300 mg PO TID #90 cap dexAMETHasone ORAL [Hexadrol] 4 mg PO DAILY tab dexAMETHasone ORAL [Hexadrol] 4 mg PO BID tab Psyllium Husk 100% [Metamucil Packet] 6 gm PO DAILY packet Sennosides [Senokot] 8.6 mg PO DAILY PRN tab PRN Reason: Constipation Continue Potassium Chloride [Potassium Chloride ER] 8 meq PO DAILY Methadone [Dolophine] 2.5 mg PO Q12H #6 tab Furosemide [Lasix] 20 mg PO DAILY oxyCODONE-APAP 7.5-325MG [Percocet 7.5-325 mg] 1 tab PO Q6HR PRN #12 tab PRN Reason: Pain Discharge Medication List Furosemide [Lasix] 20 mg PO DAILY 01/18/22 [History] Potassium Chloride [Potassium Chloride ER] 8 meq PO DAILY 01/18/22 [History] Pantoprazole Sodium [Protonix] 40 mg PO DAILY #30 tab 01/29/22 [Rx] Cyclobenzaprine [Flexeril] 10 mg PO TID #90 tab 01/30/22 [Rx] Gabapentin 300 mg PO TID #90 cap 01/30/22 [Rx] Ipratropium-Albuterol Nebulize [Duoneb 0.5 mg-3 mg/3 ml Soln] 3 ml INHALATION TID each 01/30/22 [Rx] Methadone [Dolophine] 2.5 mg PO Q12H #6 tab 01/30/22 [Rx] Metoprolol Tartrate [Lopressor] 50 mg PO BID tab 01/30/22 [Rx] Psyllium Husk 100% [Metamucil Packet] 6 gm PO DAILY packet 01/30/22 [Rx] Sennosides [Senokot] 8.6 mg PO DAILY PRN tab 01/30/22 [Rx] Sulfamethox-Tmp 800-160Mg [Bactrim DS 800-160 mg] 1 tab PO Q12HR 5 Days #10 tab 01/30/22 [Rx] dexAMETHasone ORAL [Hexadrol] 2 mg PO DAILY tab 01/30/22 [Rx] dexAMETHasone ORAL [Hexadrol] 4 mg PO BID tab 01/30/22 [Rx] dexAMETHasone ORAL [Hexadrol] 4 mg PO DAILY tab 01/30/22 [Rx] dexAMETHasone ORAL [Hexadrol] 4 mg PO TID tab 01/30/22 [Rx] oxyCODONE-APAP 7.5-325MG [Percocet 7.5-325 mg] 1 tab PO Q6HR PRN #12 tab 01/30/22 [Rx] Follow up Appointment(s)/Referral(s): Brendon Naranjo MD [STAFF PHYSICIAN] - 3 Weeks Tre Ortega DO [Primary Care Provider] - 1-2 days [facility] [place], [NON-STAFF] - As Needed Activity/Diet/Wound Care/Special Instructions: Written Rx for dexamethasone taper as it will need to be given in rehab and completed outpt
[2022-01-30 14:25] VITALS: TEMP 97.7
[2022-01-30 15:09] VITALS: BP 165/81; RESP 18
[2022-01-30 16:31] VITALS: PULSE 75
--- NOTE | 2022-01-30 18:32 | P.PN ---
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 He did have an assisted fall yesterday but, he states this was after he is sitting on the toilet for very long time and his legs went numb. He is moving his legs well today, he is anxious for rehabilitation. He is tolerating oral intake Objective - Vital Signs Vital signs: Vital Signs Temp 97.7 F 01/30/22 14:00 Pulse 75 01/30/22 16:30 Resp 18 01/30/22 14:50 BP 165/81 01/30/22 14:50 Pulse Ox 94 L 01/30/22 16:19 FiO2 40 01/24/22 15:49 Intake & Output 01/29/22 01/30/22 01/30/22 18:59 06:59 18:59 Intake Total 480 Balance 480 Intake: Oral 480 Other: Voiding Method Urinal Urinal # Voids 1 3 # Bowel Movements 1 1 ABP, PAP, CO, CI - Last Documented Arterial Blood Pressure 0/0 - Constitutional General appearance: Present: cooperative, no acute distress, obese - EENT Eyes: Present: anicteric sclerae, EOMI ENT: Present: hearing grossly normal - Respiratory Details: respirations even and unlabored - Neurologic Neurologic: Present: CNII-XII intact - Psychiatric Psychiatric: Present: A&O x's 3, appropriate affect, intact judgment & insight - Labs CBC & Chem 7: 01/26/22 05:17 01/26/22 05:17 Assessment and Plan (1) Adenocarcinoma, lung Status: Acute Priority: High Code(s): C34.90 - MALIGNANT NEOPLASM OF UNSP PART OF UNSP BRONCHUS OR LUNG SNOMED Code(s): 130307707 (2) Compression of spinal cord Status: Acute Priority: High Code(s): G95.20 - UNSPECIFIED CORD COMPRESSION SNOMED Code(s): 04165717 Plan: New diagnosis of NSCLC, path from soft tissue mass/vertebral mets. Pt is s/p surgery for cord compression. He is doing well and is able to am bulate. Will likely have palliative radiation in the near future. Following with Dr. Mantilla Discussed with Linux Security Administrator, pt is going to rehab at [facility]. follow-up after DC to home for reassessment of patient and discussion of treatment options. Rx given for steroid taper to cont while in rehab and to complete what is left when he is discharged. PPI ordered for prevention of steroid induced gastritis. MRI brain neg for malignancy Pt is going to be coming from [place]-he is ok with that. Pending NGS testing, PD-L1 Pt verbalized understanding the plan.
[2022-02-05] MEDS ORDERED: dexAMETHasone 4 MG TAB PO SCH (09:00)
[2022-02-12] MEDS ORDERED: dexAMETHasone 4 MG TAB PO SCH (09:00)
[2022-02-19] MEDS ORDERED: dexAMETHasone 2 MG TAB PO SCH (09:00)
== END 2022-01-30 16:36 | DRG 457 ==
LOC: EC 22:57 → 5NMEDONC 01-18 02:13 → 2SICU 01-23 19:04 → 4SSUR 01-25 21:54
PROVIDERS: ADMIT Hospitalist; ATTEND Hospitalist
PROC: 01N80ZZ Release Thoracic Nerve, Open Approach (ICD-10-PCS; principal; 2022-01-23 07:30)
PROC: 00NX0ZZ Release Thoracic Spinal Cord, Open Approach (ICD-10-PCS; principal; 2022-01-23 07:30)
PROC: 4A11X4G Monitoring of Peripheral Nervous Electrical Activity, Intraoperative, External Approach (ICD-10-PCS; principal; 2022-01-23 07:30)
PROC: 0PU40JZ Supplement Thoracic Vertebra with Synthetic Substitute, Open Approach (ICD-10-PCS; principal; 2022-01-23 07:30)
PROC: 0RG70K1 Fusion of 2 to 7 Thoracic Vertebral Joints with Nonautologous Tissue Substitute, Posterior Approach, Posterior Column, Open Approach (ICD-10-PCS; principal; 2022-01-23 07:30)
PROC: 0PB40ZX Excision of Thoracic Vertebra, Open Approach, Diagnostic (ICD-10-PCS; principal; 2022-01-23 07:30)
PROC: 0PS404Z Reposition Thoracic Vertebra with Internal Fixation Device, Open Approach (ICD-10-PCS; principal; 2022-01-23 07:30)
DX: M48.54XA Collapsed vertebra, not elsewhere classified, thoracic region, initial encounter for fracture (principal); E87.1 Hypo-osmolality and hyponatremia; C79.51 Secondary malignant neoplasm of bone; J90 Pleural effusion, not elsewhere classified; G95.29 Other cord compression; I87.319 Chronic venous hypertension (idiopathic) with ulcer of unspecified lower extremity; D62 Acute posthemorrhagic anemia; C34.31 Malignant neoplasm of lower lobe, right bronchus or lung; L97.929 Non-pressure chronic ulcer of unspecified part of left lower leg with unspecified severity; L97.919 Non-pressure chronic ulcer of unspecified part of right lower leg with unspecified severity; Z68.41 Body mass index [BMI] 40.0-44.9, adult; M48.04 Spinal stenosis, thoracic region; E66.01 Morbid (severe) obesity due to excess calories; J44.9 Chronic obstructive pulmonary disease, unspecified; M54.10 Radiculopathy, site unspecified; M62.838 Other muscle spasm; G89.3 Neoplasm related pain (acute) (chronic); M47.816 Spondylosis without myelopathy or radiculopathy, lumbar region; M47.817 Spondylosis without myelopathy or radiculopathy, lumbosacral region; I08.1 Rheumatic disorders of both mitral and tricuspid valves; K59.00 Constipation, unspecified; I10 Essential (primary) hypertension; I87.2 Venous insufficiency (chronic) (peripheral); R26.2 Difficulty in walking, not elsewhere classified; M19.90 Unspecified osteoarthritis, unspecified site; Z79.891 Long term (current) use of opiate analgesic; Z79.899 Other long term (current) drug therapy; Z87.891 Personal history of nicotine dependence; Z74.01 Bed confinement status; Z87.19 Personal history of other diseases of the digestive system; Z90.49 Acquired absence of other specified parts of digestive tract; Z98.890 Other specified postprocedural states; Z71.3 Dietary counseling and surveillance; W18.30XA Fall on same level, unspecified, initial encounter; Z88.1 Allergy status to other antibiotic agents
CPT/HCPCS: 36415; 36600; 70553; 71045; 72100; 72128; 72129; 72131; 72156; 72157; 72158; 80048; 80053; 82550; 82553; 82805; 85025; 85610; 85730; 86850; 86900; 86901; 87070; 87205; 88305; 88331; 88341; 88342; 93005; 93306; 94002; 94003; 94640; 94760; 96374; 96375; 99285

== ENCOUNTER → 2022-01-19 | Outpatient (CLI) | payer MEDICARE | END | disposition home or self-care (01) | LOC: RADONCKCI 10:48 | PROVIDERS: ATTEND Radiology Radiation Oncology | DX: Z53.9 Procedure and treatment not carried out, unspecified reason (principal) ==

== ENCOUNTER 2022-02-02 23:05 | Inpatient (IN) | payer MEDICARE ==
[2022-02-02] MEDS ORDERED: SODIUM CHLORIDE 0.9% 1,000 ML IV STA (23:20)
[2022-02-02] MEDS ORDERED: SODIUM CHLORIDE 0.9% 500 ML 500 ML IV STA (23:20)
--- NOTE | 2022-02-02 23:44 | ED ---
Recheck HPI - General Chief Complaint: Recheck/Abnormal Lab/Rx Stated Complaint: Abnormal labs Time Seen by Provider: 02/02/22 23:17 Source: patient, EMS, RN notes reviewed, old records reviewed Mode of arrival: EMS Limitations: no limitations - History of Present Illness Initial Comments: This is a 71-year-old male to the ER for evaluation is no presents today for evaluation of complaints presented for abnormal lab values. Patient was admitted for abnormal BUN. Patient has no complaints currently. No headache chest pain shows with abdominal pain, no recent change in medications. MD Complaint: abnormal lab (BUN) -: unknown Returns Today for: Called Because of Abnormal Lab/Test Symptoms Since Prior Visit: no new symptoms Context: planned re-check Associated Symptoms: none Treatments Prior to Arrival: other (none) - Related Data Home Medications Medication Instructions Recorded Confirmed Furosemide [Lasix] 20 mg PO DAILY 01/18/22 01/18/22 Potassium Chloride [Potassium 8 meq PO DAILY 01/18/22 01/18/22 Chloride ER] Previous Rx's Medication Instructions Recorded Pantoprazole Sodium [Protonix] 40 mg PO DAILY #30 tab 01/29/22 Cyclobenzaprine [Flexeril] 10 mg PO TID #90 tab 01/30/22 Gabapentin 300 mg PO TID #90 cap 01/30/22 Ipratropium-Albuterol Nebulize 3 ml INHALATION TID each 01/30/22 [Duoneb 0.5 mg-3 mg/3 ml Soln] Methadone [Dolophine] 2.5 mg PO Q12H #6 tab 01/30/22 Metoprolol Tartrate [Lopressor] 50 mg PO BID tab 01/30/22 Psyllium Husk 100% [Metamucil 6 gm PO DAILY packet 01/30/22 Packet] Sennosides [Senokot] 8.6 mg PO DAILY PRN tab 01/30/22 Sulfamethox-Tmp 800-160Mg [Bactrim 1 tab PO Q12HR 5 Days #10 tab 01/30/22 DS 800-160 mg] dexAMETHasone ORAL [Hexadrol] 2 mg PO DAILY tab 01/30/22 dexAMETHasone ORAL [Hexadrol] 4 mg PO BID tab 01/30/22 dexAMETHasone ORAL [Hexadrol] 4 mg PO DAILY tab 01/30/22 dexAMETHasone ORAL [Hexadrol] 4 mg PO TID tab 01/30/22 oxyCODONE-APAP 7.5-325MG [Percocet 1 tab PO Q6HR PRN #12 tab 01/30/22 7.5-325 mg] Allergies Allergy/AdvReac Type Severity Reaction Status Date / Time cephalexin monohydrate Allergy Itching Verified 01/18/22 07:33 [From Keflex] Review of Systems ROS Statement: Those systems with pertinent positive or pertinent negative responses have been documented in the HPI. ROS Other: All systems not noted in ROS Statement are negative. Past Medical History Additional Past Medical History / Comment(s): Patient previously had perforated sigmoid diverticulitis and had to establish colostomy which was reversed in August and has done well, back pain compression fx History of Any Multi-Drug Resistant Organisms: None Reported Past Surgical History: Appendectomy, Bowel Resection Additional Past Surgical History / Comment(s): colostomy reversed 11/19/13 Past Psychological History: No Psychological Hx Reported Past Alcohol Use History: None Reported, Occasional Past Drug Use History: None Reported General Exam General appearance: alert, in no apparent distress Head exam: Present: atraumatic, normocephalic, normal inspection Eye exam: Present: normal appearance, PERRL, EOMI. Absent: scleral icterus, conjunctival injection, periorbital swelling ENT exam: Present: normal exam, mucous membranes moist Neck exam: Present: normal inspection. Absent: tenderness, meningismus, lymphadenopathy Respiratory exam: Present: normal lung sounds bilaterally. Absent: respiratory distress, wheezes, rales, rhonchi, stridor Cardiovascular Exam: Present: regular rate, normal rhythm, normal heart sounds. Absent: systolic murmur, diastolic murmur, rubs, gallop, clicks GI/Abdominal exam: Present: soft, normal bowel sounds. Absent: distended, tenderness, guarding, rebound, rigid Extremities exam: Present: normal inspection, full ROM, normal capillary refill. Absent: tenderness, pedal edema, joint swelling, calf tenderness Back exam: Present: normal inspection Neurological exam: Present: alert, oriented X3, CN II-XII intact Psychiatric exam: Present: normal affect, normal mood Skin exam: Present: warm, dry, intact, normal color. Absent: rash Course Vital Signs 02/02/22 23:09 Temperature 97 F L Pulse Rate 77 Respiratory 20 Rate Blood Pressure 126/73 O2 Sat by Pulse 93 L Oximetry - Reevaluation(s) Reevaluation #1: 02/03/22 00:25 Medical record is reviewed Reevaluation #2: 02/03/22 02:14 Patient informed results and questions answered Reevaluation #3: 02/03/22 02:14 No acute change in the emergency department - Consultations Consultation #1: Spoke with [facility] were agreeable to admit this patient Medical Decision Making - Medical Decision Making 71 male sent to the emergency department for abnormal labs. Patient is significantly uremia with acute renal failure. Hyperkalemia. Patient will be admitted for correction of potassium nephrology consult - Lab Data Result diagrams: 02/03/22 00:07 02/03/22 00:07 Lab Results 02/03/22 02/03/22 02/03/22 Range/Units 00:07 00:07 00:07 WBC 20.2 H (3.8-10.6) k/uL RBC 4.70 (4.30-5.90) m/uL Hgb 12.1 L (13.0-17.5) gm/dL Hct 39.4 (39.0-53.0) % MCV 83.9 (80.0-100.0) fL MCH 25.7 (25.0-35.0) pg MCHC 30.7 L (31.0-37.0) g/dL RDW 16.3 H (11.5-15.5) % Plt Count 357 (150-450) k/uL MPV 7.9 Neutrophils % 94 % Lymphocytes % 2 % Monocytes % 3 % Eosinophils % 0 % Basophils % 0 % Neutrophils # 19.1 H (1.3-7.7) k/uL Lymphocytes # 0.4 L (1.0-4.8) k/uL Monocytes # 0.6 (0-1.0) k/uL Eosinophils # 0.1 (0-0.7) k/uL Basophils # 0.0 (0-0.2) k/uL Anisocytosis Slight PT 11.2 (9.0-12.0) sec INR 1.0 (<1.2) APTT 24.3 (22.0-30.0) sec Sodium 131 L (137-145) mmol/L Potassium 6.8 H* (3.5-5.1) mmol/L Chloride 95 L (98-107) mmol/L Carbon Dioxide 24 (22-30) mmol/L Anion Gap 12 mmol/L BUN 99 H (9-20) mg/dL Creatinine 6.48 H (0.66-1.25) mg/dL Est GFR (CKD-EPI)AfAm 9 (>60 ml/min/1.73 sqM) Est GFR (CKD-EPI)NonAf 8 (>60 ml/min/1.73 sqM) Glucose 163 H (74-99) mg/dL Calcium 7.8 L (8.4-10.2) mg/dL Phosphorus 6.5 H (2.5-4.5) mg/dL Magnesium 2.8 H (1.6-2.3) mg/dL Total Bilirubin 0.3 (0.2-1.3) mg/dL AST 24 (17-59) U/L ALT 24 (4-49) U/L Alkaline Phosphatase 94 (38-126) U/L Total Protein 6.6 (6.3-8.2) g/dL Albumin 3.3 L (3.5-5.0) g/dL - EKG Data -: EKG Interpreted by Me (EKG is sinus rhythm 69 SC 200 QRS 78 QTc 408) - Radiology Data Radiology results: report reviewed (CT abdomen and pelvis), image reviewed Critical Care Time Critical Care Time: Yes Total Critical Care Time: 31 Disposition Clinical Impression: Hyperkalemia, FLOWER (acute kidney injury), Leukocytosis, Uremia, Altered mental state Disposition: ADMITTED IP TO THIS [facility] Condition: Serious Is patient prescribed a controlled substance at d/c from ED?: No Referrals: Iron Moreno MD [Primary Care Provider] - 1-2 days
[2022-02-03 00:26] LABS: Anisocytosis Slight; Basophils % (A) 0 %; Eosinophils # (A) 0.1 k/uL (0-0.7); Eosinophils % (A) 0 %; HCT 39.4 % (39.0-53.0); HGB 12.1 gm/dL (13.0-17.5); Lymphocytes # (A) 0.4 k/uL (1.0-4.8); Lymphocytes % (A) 2 %; MCH 25.7 pg (25.0-35.0); MCHC 30.7 g/dL (31.0-37.0); MCV 83.9 fL (80.0-100.0); Mean Platelet Volume 7.9; Monocytes # (A) 0.6 k/uL (0-1.0); Monocytes % (A) 3 %; Neutrophils # (A) 19.1 k/uL (1.3-7.7); Neutrophils % (A) 94 %; Platelet Count 357 k/uL (150-450); RDW 16.3 % (11.5-15.5); WBC 20.2 k/uL (3.8-10.6)
[2022-02-03 00:43] LABS: Partial Thromboplastin Time 24.3 sec (22.0-30.0); Prothrombin Time 11.2 sec (9.0-12.0)
[2022-02-03 01:11] LABS: Albumin 3.3 g/dL (3.5-5.0); Calcium 7.8 mg/dL (8.4-10.2); Magnesium 2.8 mg/dL (1.6-2.3); Phosphorus 6.5 mg/dL (2.5-4.5); Total Bilirubin 0.3 mg/dL (0.2-1.3); Total Protein 6.6 g/dL (6.3-8.2)
[2022-02-03 01:40] LABS: Potassium 6.8 mmol/L (3.5-5.1)
[2022-02-03] MEDS ORDERED: DEXTROSE 50% SYRINGE 50 ML IVP STA (02:09)
[2022-02-03] MEDS ORDERED: SODIUM BICARB 8.4% 50 ML SYR (1 MEQ/ML) IV STA (02:09)
[2022-02-03] MEDS ORDERED: SODIUM CHLORIDE 0.9% 1,000 ML IV STA (02:09)
[2022-02-03] MEDS ORDERED: INSULIN REGULAR 100 UNIT/ML VIAL (IV) IV ONE (02:09)
[2022-02-03] MEDS ORDERED: AMPICILLIN-SULBACTAM 3 GM in SODIUM CHLORIDE 0.9% 100 ML IVPB STA (02:11)
[2022-02-03] MEDS ORDERED: MORPHINE SULFATE 4 MG/ML SYRINGE IV PRN (02:15)
[2022-02-03] MEDS ORDERED: NALOXONE 0.4 MG/ML 1 ML VIAL IV PRN (02:15)
[2022-02-03] MEDS ORDERED: LORazepam 2 MG/ML INJ IV PRN (02:15)
[2022-02-03] MEDS ORDERED: ONDANSETRON 4 MG/2 ML VIAL IVP PRN (02:15)
[2022-02-03 02:44] LABS: Appearance,Urine Clear (Clear); Bilirubin,Urine Negative (Negative); Blood,Urine Moderate (Negative); Color,Urine Yellow; Glucose,Urine (UA) Negative (Negative); Ketones,Urine Negative (Negative); Leukocyte Esterase,Urine Negative (Negative); Nitrite,Urine Negative (Negative); Protein,Urine Negative (Negative); RBC,Urine 13 /hpf (0-5); Specific Gravity,Urine 1.007 (1.001-1.035); Urobilinogen,Urine <2.0 mg/dL (<2.0); WBC,Urine 3 /hpf (0-5)
--- NOTE | 2022-02-03 03:02 | CT ---
EXAMINATION TYPE: CT abdomen pelvis wo con DATE OF EXAM: 02/03/2022 COMPARISON: None HISTORY: Pt. in for abnormal labs. FLOWER. no prior on PACS CT DLP: 1806.4 mGycm Automated exposure control for dose reduction was used. Images obtained from the diaphragm to the floor the pelvis with no contrast. There is infiltrate and atelectasis at both lung bases. There are bilateral pleural effusions. There is also some right middle lobe infiltrate and atelectasis. Heart size is fairly normal. No pericardia l effusion. Liver is intact. Spleen is intact. There is no pancreatic mass. There is no adrenal mass. There is extensive fat stranding around the left kidney. There is left-side d hydronephrosis and periureteral edema. No calculus identified. There is some mild to moderate stran ding also around the right kidney and right ureter. There is no retroperitoneal adenopathy. There is previous bowel surgery in the anterior abdomen. There is Weaver catheter in the bladder. Bladder is al most empty. No free fluid in the pelvis. No inguinal hernia. There is multilevel lumbar spondylotic changes as posterior fusion surgery at the thoracolumbar junct ion. There is posterior skin vinita. There is a 4 cm cortical cyst lateral left kidney. There is no ascites or free air. No sign of a bowel obstruction. IMPRESSION: Extensive bilateral retroperitoneal fat stranding around the kidneys and ureters. The distal ureters are not dilated and no ureteral calculus seen. Mild bilateral hydronephrosis. This could relate to ac [place] severe pyelonephritis and ureteritis. Bilateral lower lobe pneumonia and atelectasis and pleural effusions. Pulmonary abnormalities not albert nged compared to 01/24/2022. Renal abnormalities appear new compared to 01/24/2022 exam.
[2022-02-03] MEDS: SODIUM CHLORIDE 0.9% 1,000 ML IV SCH ×2 (03:12→17:03)
--- NOTE | 2022-02-03 04:15 | XR ---
EXAMINATION TYPE: XR chest 1V portable DATE OF EXAM: 02/03/2022 COMPARISON: 01/25/2022 HISTORY: Weakness TECHNIQUE: FINDINGS: There is some infiltrate and atelectasis in both lower lobes and more on the right side. No obvious heart failure. Heart size is fairly normal. There are chest leads. There is multilevel thora columbar spine fusion surgery. IMPRESSION: Lower lobe pulmonary infiltrates and atelectasis which appear worse than last exam.
[2022-02-03 08:00] LABS: Calcium 7.5 mg/dL (8.4-10.2); Magnesium 2.7 mg/dL (1.6-2.3); Potassium 5.5 mmol/L (3.5-5.1)
[2022-02-03] MEDS ORDERED: FUROSEMIDE 10 MG/ML 4 ML VIAL IV STA (10:23)
[2022-02-03] MEDS ORDERED: SENNOSIDES 8.6 MG TAB PO PRN (10:27)
--- NOTE | 2022-02-03 10:27 | P.NPCON ---
History of Present Illness - Reason for Consult acute renal failure, hyperkalemia - History of Present Illness Reason for consultation: Acute kidney injury and hyperkalemia History of present illness: Patient is a 71-year-old male seen in renal consultation for acute kidney injury and hyperkalemia. Patient's baseline creatinine is near 1 and was elevated to 6.48 on admission. Patient states he is currently residing at a rehab facility and was sent to the hospital due to abnormal blood work. States he recently had back surgery and has been undergoing rehab. He also states the he had not urinated for about a day and a half. Oral intake has been fair. No vomiting or diarrhea. Denies history of coronary artery disease. No history of diabetes.Weaver catheter was placed due to urinary retention. Patient's had good urine output since insertion of Weaver. CT of the abdomen and pelvis showed bi lateral hydronephrosis with concern for pyelonephritis. He denies use of nonsteroidals. I do see Bactrim and his home medication list however patient is not sure if he's been taking it and for what reason. He is currently receiving IV fluids. He also takes Lasix outpatient which is currently held. Vital signs are stable. General: Awake. No acute distress. HEENT: Head exam is unremarkable. LUNGS: Breath sounds decreased. HEART: Rate and Rhythm are regular. ABDOMEN: Soft, nontender. EXTREMITITES: 1+ edema. Past Medical History Additional Past Medical History / Comment(s): Patient previously had perforated sigmoid diverticulitis and had to establish colostomy which was reversed in August and has done well, back pain compression fx History of Any Multi-Drug Resistant Organisms: None Reported Past Surgical History: Appendectomy, Bowel Resection Additional Past Surgical History / Comment(s): colostomy reversed 11/19/13 Past Psychological History: No Psychological Hx Reported Smoking Status: Former smoker Past Alcohol Use History: Occasional Past Drug Use History: Marijuana Medications and Allergies Home Medications Medication Instructions Recorded Confirmed Type Furosemide [Lasix] 20 mg PO DAILY 01/18/22 01/18/22 History Potassium Chloride [Potassium 8 meq PO DAILY 01/18/22 01/18/22 History Chloride ER] Pantoprazole Sodium [Protonix] 40 mg PO DAILY #30 tab 01/29/22 Rx Cyclobenzaprine [Flexeril] 10 mg PO TID #90 tab 01/30/22 Rx Gabapentin 300 mg PO TID #90 cap 01/30/22 Rx Ipratropium-Albuterol Nebulize 3 ml INHALATION TID each 01/30/22 Rx [Duoneb 0.5 mg-3 mg/3 ml Soln] Methadone [Dolophine] 2.5 mg PO Q12H #6 tab 01/30/22 Rx Metoprolol Tartrate [Lopressor] 50 mg PO BID tab 01/30/22 Rx Psyllium Husk 100% [Metamucil 6 gm PO DAILY packet 01/30/22 Rx Packet] Sennosides [Senokot] 8.6 mg PO DAILY PRN tab 01/30/22 Rx Sulfamethox-Tmp 800-160Mg [Bactrim 1 tab PO Q12HR 5 Days #10 tab 01/30/22 Rx DS 800-160 mg] dexAMETHasone ORAL [Hexadrol] 2 mg PO DAILY tab 01/30/22 Rx dexAMETHasone ORAL [Hexadrol] 4 mg PO BID tab 01/30/22 Rx dexAMETHasone ORAL [Hexadrol] 4 mg PO DAILY tab 01/30/22 Rx dexAMETHasone ORAL [Hexadrol] 4 mg PO TID tab 01/30/22 Rx oxyCODONE-APAP 7.5-325MG [Percocet 1 tab PO Q6HR PRN #12 tab 01/30/22 Rx 7.5-325 mg] Allergies Allergy/AdvReac Type Severity Reaction Status Date / Time cephalexin monohydrate Allergy Itching Verified 01/18/22 07:33 [From Keflex] Physical Exam Vitals: Vital Signs Temp Pulse Pulse Resp BP BP Pulse Ox 02/03/22 08:40 97.6 F 77 18 132/84 95 02/03/22 04:00 97.6 F 77 12 118/71 94 L 02/03/22 02:52 70 19 112/68 98 02/02/22 23:09 97 F L 77 20 126/73 93 L Intake and Output 02/02/22 02/03/22 02/03/22 22:59 06:59 14:59 Intake Total 240 Output Total 1900 1450 Balance -1900 -1210 Intake: Oral 240 Output: Urine 1900 1450 Other: Voiding Method Indwelling Catheter # Bowel Movements 0 Weight 140.614 kg Results - Lab Results Most recent lab results Calcium 7.5 mg/dL (8.4-10.2) L 02/03/22 07:34 Phosphorus 6.5 mg/dL (2.5-4.5) H 02/03/22 00:07 Magnesium 2.7 mg/dL (1.6-2.3) H 02/03/22 07:34 02/03/22 00:07 02/03/22 07:34 Assessment and Plan Plan: Assessment: 1. Acute kidney injury secondary to obstructive uropathy. Creatinine 6.4 done admission and is 4.7 today. Baseline creatinine near 1. No proteinuria on UA. 2. Hyperkalemia secondary to acute kidney injury, urinary retention. ?Bactrim. Improved with medical management. 3. Urinary retention with bilateral hydronephrosis. 4. Lower extremity edema. 5. Hypervolemic hyponatremia. Improved. 6. Status post T9 to T11 laminectomy in December 2021. Plan: Hep-Lock IV fluids. Lasix 40 mg IV once today. Repeat BMP this evening. Consult urology. Add Flomax. Avoid nephrotoxins. Continue to monitor renal function and urine output. Thank you for the consultation. I will continue to follow the patient with you during his hospital stay
[2022-02-03 10:57] LABS: Anisocytosis Slight; Basophils % (A) 0 %; Eosinophils % (A) 0 %; HCT 36.7 % (39.0-53.0); HGB 11.2 gm/dL (13.0-17.5); Hypochromasia Slight; Lymphocytes # (A) 0.5 k/uL (1.0-4.8); Lymphocytes % (A) 3 %; MCHC 30.6 g/dL (31.0-37.0); MCV 85.1 fL (80.0-100.0); Mean Platelet Volume 8.3; Monocytes # (A) 0.6 k/uL (0-1.0); Monocytes % (A) 4 %; Neutrophils # (A) 14.6 k/uL (1.3-7.7); Neutrophils % (A) 91 %; Platelet Count 338 k/uL (150-450); RBC 4.31 m/uL (4.30-5.90); RDW 16.8 % (11.5-15.5)
[2022-02-03] MEDS: IPRATROPIUM-ALBUTEROL 3 ML NEB INHALATION SCH ×2 (12:23→18:55)
[2022-02-03] MEDS: TAMSULOSIN 0.4 MG CAP.ER.24H PO SCH (12:39)
--- NOTE | 2022-02-03 13:40 | P.GSCN ---
History of Present Illness Consult date: 02/03/22 History of present illness: The patient is a 71-year-old gentleman who was transferred from [facility] because of renal insufficiency. The patient underwent a back surgery approximately week ago. He has been in [facility] and apparently was found to have renal failure. He is found to be in urine retention of a large volume in this hospitalization. The patient states that prior to his back surgery and subsequent from his back surgery is not having too much difficulty urination. He has not had incontinence. He denies pain or discomfort with urination. Ther e's been no hematuria. On alpha blockers prior to this hospitalization the. He does have an indwelling catheter. I saw him many years ago for apparent voiding dysfunction but never needed follow-up and has not had any problems subsequent. Review of Systems All systems: negative - Constitutional Denies fever, Denies weight loss - EENT Eyes: denies blurred vision Ears, nose, mouth and throat: Denies dysphagia - Cardiovascular Denies chest pain, Denies shortness of breath - Respiratory Denies cough, Denies 7 - Gastrointestinal Reports as per HPI - Genitourinary Denies dysuria, Denies hematuria - Integumentary Denies rash, Denies unusual bruising - Neurological Denies headaches, Denies syncope - Hematologic/Lymphatic Denies easy bleeding, Denies easy bruising Past Medical History Additional Past Medical History / Comment(s): Patient previously had perforated sigmoid diverticulitis and had to establish colostomy which was reversed in [facility] and has done well, back pain compression fx History of Any Multi-Drug Resistant Organisms: None Reported Past Surgical History: Appendectomy, Bowel Resection Additional Past Surgical History / Comment(s): colostomy reversed 11/19/13 Past Psychological History: No Psychological Hx Reported Smoking Status: Former smoker Past Alcohol Use History: Occasional Past Drug Use History: Marijuana Medications and Allergies Home Medications Medication Instructions Recorded Confirmed Type Furosemide [Lasix] 20 mg PO DAILY 01/18/22 02/03/22 History Potassium Chloride [Potassium 8 meq PO DAILY 01/18/22 02/03/22 History Chloride ER] Methadone [Dolophine] 2.5 mg PO Q12H #6 tab 01/30/22 02/03/22 Rx Metoprolol Tartrate [Lopressor] 50 mg PO BID tab 01/30/22 02/03/22 Rx Psyllium Husk 100% [Metamucil 6 gm PO DAILY packet 01/30/22 02/03/22 Rx Packet] Sennosides [Senokot] 8.6 mg PO DAILY PRN tab 01/30/22 02/03/22 Rx Sulfamethox-Tmp 800-160Mg [Bactrim 1 tab PO Q12HR 5 Days #10 tab 01/30/22 02/03/22 Rx DS 800-160 mg] oxyCODONE-APAP 7.5-325MG [Percocet 1 tab PO Q6HR PRN #12 tab 01/30/22 02/03/22 Rx 7.5-325 mg] Cyclobenzaprine [Flexeril] 10 mg PO TID@0600,1400,2200 02/03/22 02/03/22 History Dexamethasone [Decadron] See Taper PO DIRECTED 02/03/22 02/03/22 History Gabapentin [Neurontin] 300 mg PO TID@0600,1400,2200 02/03/22 02/03/22 History Ipratropium-Albuterol Nebulize 3 ml INHALATION RT-Q8H 02/03/22 02/03/22 History [Duoneb 0.5 mg-3 mg/3 ml Soln] Pantoprazole [Protonix] 40 mg PO DAILY@0600 02/03/22 02/03/22 History Allergies Allergy/AdvReac Type Severity Reaction Status Date / Time cephalexin monohydrate Allergy Itching Verified 02/03/22 12:16 [From Keflex] Surgical - Exam Vital Signs Temp Pulse Resp BP Pulse Ox 97 F L 77 20 126/73 93 L 02/02/22 23:09 02/02/22 23:09 02/02/22 23:09 02/02/22 23:09 02/02/22 23:09 - General well developed, well nourished, no distress, obese - Eyes PERRL - ENT no hearing loss - Neck trachea midline - Respiratory normal expansion, normal respiratory effort - Cardiovascular Rhythm: regular - Abdomen Abdomen: soft, non tender - Genitourinary Indwelling catheter. Small benign prostate normal penis with no external lesions, testicles present - Integumentary no growths - Neurologic normal sensation - Musculoskeletal normal posture - Psychiatric oriented to time, oriented to person, oriented to place, speech is normal, memory intact Results - Labs 02/03/22 07:34 02/03/22 07:34 Abnormal Lab Results - Last 24 Hours (Table) 02/03/22 02/03/22 02/03/22 Range/Units 00:07 00:07 02:34 WBC 20.2 H (3.8-10.6) k/uL Hgb 12.1 L (13.0-17.5) gm/dL Hct (39.0-53.0) % MCHC 30.7 L (31.0-37.0) g/dL RDW 16.3 H (11.5-15.5) % Neutrophils # 19.1 H (1.3-7.7) k/uL Lymphocytes # 0.4 L (1.0-4.8) k/uL Sodium 131 L (137-145) mmol/L Potassium 6.8 H* (3.5-5.1) mmol/L Chloride 95 L (98-107) mmol/L BUN 99 H (9-20) mg/dL Creatinine 6.48 H (0.66-1.25) mg/dL Glucose 163 H (74-99) mg/dL Calcium 7.8 L (8.4-10.2) mg/dL Phosphorus 6.5 H (2.5-4.5) mg/dL Magnesium 2.8 H (1.6-2.3) mg/dL Albumin 3.3 L (3.5-5.0) g/dL Urine Blood Moderate H (Negative) Urine RBC 13 H (0-5) /hpf 02/03/22 02/03/22 Range/Units 07:34 07:34 WBC 16.0 H (3.8-10.6) k/uL Hgb 11.2 L (13.0-17.5) gm/dL Hct 36.7 L (39.0-53.0) % MCHC 30.6 L (31.0-37.0) g/dL RDW 16.8 H (11.5-15.5) % Neutrophils # 14.6 H (1.3-7.7) k/uL Lymphocytes # 0.5 L (1.0-4.8) k/uL Sodium 136 L (137-145) mmol/L Potassium 5.5 H (3.5-5.1) mmol/L Chloride (98-107) mmol/L BUN 78 H (9-20) mg/dL Creatinine 4.72 H (0.66-1.25) mg/dL Glucose 105 H (74-99) mg/dL Calcium 7.5 L (8.4-10.2) mg/dL Phosphorus (2.5-4.5) mg/dL Magnesium 2.7 H (1.6-2.3) mg/dL Albumin (3.5-5.0) g/dL Urine Blood (Negative) Urine RBC (0-5) /hpf Diabetes panel 02/03/22 02/03/22 Range/Units 00:07 07:34 Sodium 131 L 136 L (137-145) mmol/L Potassium 6.8 H* 5.5 H (3.5-5.1) mmol/L Chloride 95 L 100 (98-107) mmol/L Carbon Dioxide 24 28 (22-30) mmol/L BUN 99 H 78 H (9-20) mg/dL Creatinine 6.48 H 4.72 H (0.66-1.25) mg/dL Glucose 163 H 105 H (74-99) mg/dL Calcium 7.8 L 7.5 L (8.4-10.2) mg/dL AST 24 (17-59) U/L ALT 24 (4-49) U/L Alkaline Phosphatase 94 (38-126) U/L Total Protein 6.6 (6.3-8.2) g/dL Albumin 3.3 L (3.5-5.0) g/dL Calcium panel 02/03/22 02/03/22 Range/Units 00:07 07:34 Calcium 7.8 L 7.5 L (8.4-10.2) mg/dL Phosphorus 6.5 H (2.5-4.5) mg/dL Albumin 3.3 L (3.5-5.0) g/dL Pituitary panel 02/03/22 02/03/22 Range/Units 00:07 07:34 Sodium 131 L 136 L (137-145) mmol/L Potassium 6.8 H* 5.5 H (3.5-5.1) mmol/L Chloride 95 L 100 (98-107) mmol/L Carbon Dioxide 24 28 (22-30) mmol/L BUN 99 H 78 H (9-20) mg/dL Creatinine 6.48 H 4.72 H (0.66-1.25) mg/dL Glucose 163 H 105 H (74-99) mg/dL Calcium 7.8 L 7.5 L (8.4-10.2) mg/dL Adrenal panel 02/03/22 02/03/22 Range/Units 00:07 07:34 Sodium 131 L 136 L (137-145) mmol/L Potassium 6.8 H* 5.5 H (3.5-5.1) mmol/L Chloride 95 L 100 (98-107) mmol/L Carbon Dioxide 24 28 (22-30) mmol/L BUN 99 H 78 H (9-20) mg/dL Creatinine 6.48 H 4.72 H (0.66-1.25) mg/dL Glucose 163 H 105 H (74-99) mg/dL Calcium 7.8 L 7.5 L (8.4-10.2) mg/dL Total Bilirubin 0.3 (0.2-1.3) mg/dL AST 24 (17-59) U/L ALT 24 (4-49) U/L Alkaline Phosphatase 94 (38-126) U/L Total Protein 6.6 (6.3-8.2) g/dL Albumin 3.3 L (3.5-5.0) g/dL Assessment and Plan Assessment: Impression: Renal failure post-back surgery. Urine retention probably contributing to the renal failure. Urine retention due to either myogenic decompensation of the bladder or perhaps neurologic issues Recommendation: From a urologic standpoint I would leave indwelling cath until the renal failure subsides. The creatinine is falling from yesterday today. When the patient is ambulatory and feeling better in the renal failure is subsided I consider remove the catheter for voiding trial. I'll follow this patient with you.
--- NOTE | 2022-02-03 15:50 | P.CNOR ---
History of Present Illness - [facility] Consult date: 02/03/22 Consult reason: other (Recent spine surgery) History of present illness: Patient is a 71-year-old male who was admitted to [facility] on 02/02/2022 after being transferred from a rehab facility due to significant lab abnormalities. Patient was admitted under internal medicine with other medical consults place. Our orthopedic team was consulted due to his recent surgery on 01/23/2022. Patient had underwent a T8-T12 decompression with posterior lateral stabilization and tumor resection on 01/23/[address] Moreno. At that time patient spent multiple days in the hospital recovering from surgery. 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 Patient had multiple medical specialists following the patient. He was then subsequently discharged to rehab. Patient states that he has been utilizing the TLSO brace. He has been getting daily physical therapy. He's had no significant changes in his back pain. He denies any numbness or tingling in bilateral upper or lower extremities. He denies any genital or peroneal numbness or tingling. He denies any loss of bowel or bladder function. Review of Systems Constitutional: Reports as per HPI Past Medical History Additional Past Medical History / Comment(s): Patient previously had perforated sigmoid diverticulitis and had to establish colostomy which was reversed in August and has done well, back pain compression fx History of Any Multi-Drug Resistant Organisms: None Reported Past Surgical History: Appendectomy, Bowel Resection Additional Past Surgical History / Comment(s): colostomy reversed 11/19/13 Past Psychological History: No Psychological Hx Reported Smoking Status: Former smoker Past Alcohol Use History: Occasional Past Drug Use History: Marijuana Medications and Allergies Home Medications Medication Instructions Recorded Confirmed Type Furosemide [Lasix] 20 mg PO DAILY 01/18/22 02/03/22 History Potassium Chloride [Potassium 8 meq PO DAILY 01/18/22 02/03/22 History Chloride ER] Methadone [Dolophine] 2.5 mg PO Q12H #6 tab 01/30/22 02/03/22 Rx Metoprolol Tartrate [Lopressor] 50 mg PO BID tab 01/30/22 02/03/22 Rx Psyllium Husk 100% [Metamucil 6 gm PO DAILY packet 01/30/22 02/03/22 Rx Packet] Sennosides [Senokot] 8.6 mg PO DAILY PRN tab 01/30/22 02/03/22 Rx Sulfamethox-Tmp 800-160Mg [Bactrim 1 tab PO Q12HR 5 Days #10 tab 01/30/22 02/03/22 Rx DS 800-160 mg] oxyCODONE-APAP 7.5-325MG [Percocet 1 tab PO Q6HR PRN #12 tab 01/30/22 02/03/22 Rx 7.5-325 mg] Cyclobenzaprine [Flexeril] 10 mg PO TID@0600,1400,2200 02/03/22 02/03/22 History Dexamethasone [Decadron] See Taper PO DIRECTED 02/03/22 02/03/22 History Gabapentin [Neurontin] 300 mg PO TID@0600,1400,2200 02/03/22 02/03/22 History Ipratropium-Albuterol Nebulize 3 ml INHALATION RT-Q8H 02/03/22 02/03/22 History [Duoneb 0.5 mg-3 mg/3 ml Soln] Pantoprazole [Protonix] 40 mg PO DAILY@0600 02/03/22 02/03/22 History Allergies Allergy/AdvReac Type Severity Reaction Status Date / Time cephalexin monohydrate Allergy Itching Verified 02/03/22 12:16 [From Keflex] Physical Examination Gen: AOx3, NAD VSS stable at this time Integument: Foam dressing was removed today at bedside, vinita are all in good position and condition. There is no erythema surrounding the incision. There is no areas of fluctuance appreciated Palpation: No severe tenderness with palpation to the midline and paraspinal region of the lower thoracic spine ROM: Full range of motion in all major muscle groups of the bilateral upper and lower extremities, no focal deficits appreciated Sensory Exam: Senory exam to light touch is intact C5-T1 Senosry exam to light touch is intact L2-S1 Motor: 55 strength appreciated in the bilateral upper extremities with shoulder elevation, shoulder abduction, elbow extension, elbow flexion, wrist extension, wrist flexion, surgical instrument technician 4+/5 strength appreciated the bilateral lower extremities with hip flexion, knee extension, knee flexion 55 strength appreciated the bilateral lower extremities with plantar flexion, dorsiflexion, EHL, FHL Reflexes: 2/4 in all UE and LE Negative Doni's bilaterally Negative Babinski bilaterally Negative clonus right, positive clonus left 2 beats Results - Labs Labs: Abnormal Lab Results - Last 24 Hours (Table) 02/03/22 02/03/22 02/03/22 Range/Units 00:07 00:07 02:34 WBC 20.2 H (3.8-10.6) k/uL Hgb 12.1 L (13.0-17.5) gm/dL Hct (39.0-53.0) % MCHC 30.7 L (31.0-37.0) g/dL RDW 16.3 H (11.5-15.5) % Neutrophils # 19.1 H (1.3-7.7) k/uL Lymphocytes # 0.4 L (1.0-4.8) k/uL Sodium 131 L (137-145) mmol/L Potassium 6.8 H* (3.5-5.1) mmol/L Chloride 95 L (98-107) mmol/L BUN 99 H (9-20) mg/dL Creatinine 6.48 H (0.66-1.25) mg/dL Glucose 163 H (74-99) mg/dL Calcium 7.8 L (8.4-10.2) mg/dL Phosphorus 6.5 H (2.5-4.5) mg/dL Magnesium 2.8 H (1.6-2.3) mg/dL Albumin 3.3 L (3.5-5.0) g/dL Urine Blood Moderate H (Negative) Urine RBC 13 H (0-5) /hpf 02/03/22 02/03/22 Range/Units 07:34 07:34 WBC 16.0 H (3.8-10.6) k/uL Hgb 11.2 L (13.0-17.5) gm/dL Hct 36.7 L (39.0-53.0) % MCHC 30.6 L (31.0-37.0) g/dL RDW 16.8 H (11.5-15.5) % Neutrophils # 14.6 H (1.3-7.7) k/uL Lymphocytes # 0.5 L (1.0-4.8) k/uL Sodium 136 L (137-145) mmol/L Potassium 5.5 H (3.5-5.1) mmol/L Chloride (98-107) mmol/L BUN 78 H (9-20) mg/dL Creatinine 4.72 H (0.66-1.25) mg/dL Glucose 105 H (74-99) mg/dL Calcium 7.5 L (8.4-10.2) mg/dL Phosphorus (2.5-4.5) mg/dL Magnesium 2.7 H (1.6-2.3) mg/dL Albumin (3.5-5.0) g/dL Urine Blood (Negative) Urine RBC (0-5) /hpf H & H 02/03/22 02/03/22 Range/Units 00:07 07:34 Hgb 12.1 L 11.2 L (13.0-17.5) gm/dL Hct 39.4 36.7 L (39.0-53.0) % Coagulation 02/03/22 Range/Units 00:07 INR 1.0 (<1.2) Result Diagrams: 02/03/22 07:34 02/03/22 07:34 Assessment and Plan Assessment: Status post T8-T12 decompression with posterior lateral stabilization, tumor resection Significant lab abnormalities Multiple medical comorbidities Plan: Dr. Moreno was available to examine the patient today bedside and discuss his current state. Orthopedically the patient remains very stable at this time. No orthopedic surgical intervention is recommended at this time Activity level instructions were discussed the patient, this to include no bending, lifting or twisting. Patient needs TLSO brace when up and ambulating with a walker. Okay to not utilize brace if transferring to chair and bed. Wound care instructions, new dressing was applied today. We will utilize new silver foam dressing in the next day or so. We'll leave vinita in place at this time. Maintain meticulous cleaning especially with bowel movements to avoid contamination GI and DVT prophylaxis per primary medical service Pain control, would recommend continuing his current pain medication he was taking at discharge Other medical specialty recommendations We'll continue to follow during his inpatient stay Time with Patient: Less than 30
[2022-02-03] MEDS: AMPICILLIN-SULBACTAM 3 GM in SODIUM CHLORIDE 0.9% 100 ML IVPB SCH (17:04)
--- NOTE | 2022-02-03 17:21 | P.HPIM ---
History of Present Illness H&P Date: 02/03/22 Chief Complaint: Abnormal lab 71-year-old male patient with history of hypertension, asthma and chronic back pain with recent back surgery, at which time he was discharged to rehab facility, presents to ED with complaint of abnormal labs, markedly elevated BUN; patient is chest pain, abdominal pain or shortness of breath The patient underwent a back surgery approximately week ago. He has been in [facility] and apparently was found to have renal failure. He is found to be in urine retention of a large volume in this hospitalization. The patient states that prior to his back surgery and subsequent from his back surgery is not having too much difficulty urination. He has not had incontinence. He denies pain or discomfort with urination. There's been no hematuria. On alpha blockers prior to this hospitalization the. He does have an indwelling catheter. I saw him many years ago for apparent voiding dysfunction but never needed follow-up and has not had any problems subsequent. In the ED CT of the abdomen and pelvis showed bilateral hydronephrosis with concern for pyelonephritis. Chest x-ray reveals pneumonia Labs revealed a WBC of 20.2, hemoglobin of 12.1, sodium 131, potassium 6.8, BUN/creatinine of 199/6.48 Review of Systems REVIEW OF SYSTEMS: CONSTITUTIONAL: No fever, no malaise, no fatigue. HEENT: No recent visual problems or hearing problems. Denied any sore throat. CARDIOVASCULAR: No chest pain, orthopnea, PND, no palpitations, no syncope. PULMONARY: No shortness of breath, no cough, no hemoptysis. GASTROINTESTINAL: No diarrhea, no nausea, no vomiting, no abdominal pain. NEUROLOGICAL: No headaches, no weakness, no numbness. HEMATOLOGICAL: Denies any bleeding or petechiae. GENITOURINARY: Denies any burning micturition, frequency, or urgency. MUSCULOSKELETAL/RHEUMATOLOGICAL: Denies any joint pain, swelling, or any muscle pain. ENDOCRINE: Denies any polyuria or polydipsia. The rest of the 14-point review of systems is negative. Past Medical History Additional Past Medical History / Comment(s): Patient previously had perforated sigmoid diverticulitis and had to establish colostomy which was reversed in August and has done well, back pain compression fx History of Any Multi-Drug Resistant Organisms: None Reported Past Surgical History: Appendectomy, Bowel Resection Additional Past Surgical History / Comment(s): colostomy reversed 11/19/13 Past Psychological History: No Psychological Hx Reported Smoking Status: Former smoker Past Alcohol Use History: Occasional Past Drug Use History: Marijuana Medications and Allergies Home Medications Medication Instructions Recorded Confirmed Type Furosemide [Lasix] 20 mg PO DAILY 01/18/22 02/03/22 History Potassium Chloride [Potassium 8 meq PO DAILY 01/18/22 02/03/22 History Chloride ER] Methadone [Dolophine] 2.5 mg PO Q12H #6 tab 01/30/22 02/03/22 Rx Metoprolol Tartrate [Lopressor] 50 mg PO BID tab 01/30/22 02/03/22 Rx Psyllium Husk 100% [Metamucil 6 gm PO DAILY packet 01/30/22 02/03/22 Rx Packet] Sennosides [Senokot] 8.6 mg PO DAILY PRN tab 01/30/22 02/03/22 Rx Sulfamethox-Tmp 800-160Mg [Bactrim 1 tab PO Q12HR 5 Days #10 tab 01/30/22 02/03/22 Rx DS 800-160 mg] oxyCODONE-APAP 7.5-325MG [Percocet 1 tab PO Q6HR PRN #12 tab 01/30/22 02/03/22 Rx 7.5-325 mg] Cyclobenzaprine [Flexeril] 10 mg PO TID@0600,1400,2200 02/03/22 02/03/22 History Dexamethasone [Decadron] See Taper PO DIRECTED 02/03/22 02/03/22 History Gabapentin [Neurontin] 300 mg PO TID@0600,1400,2200 02/03/22 02/03/22 History Ipratropium-Albuterol Nebulize 3 ml INHALATION RT-Q8H 02/03/22 02/03/22 History [Duoneb 0.5 mg-3 mg/3 ml Soln] Pantoprazole [Protonix] 40 mg PO DAILY@0600 02/03/22 02/03/22 History Allergies Allergy/AdvReac Type Severity Reaction Status Date / Time cephalexin monohydrate Allergy Itching Verified 02/03/22 12:16 [From Keflex] Physical Exam Vitals: Vital Signs Temp Pulse Pulse Resp BP BP Pulse Ox 02/03/22 08:40 97.6 F 77 18 132/84 95 02/03/22 04:00 97.6 F 77 12 118/71 94 L 02/03/22 02:52 70 19 112/68 98 02/02/22 23:09 97 F L 77 20 126/73 93 L Intake and Output 02/02/22 02/03/22 02/03/22 22:59 06:59 14:59 Intake Total 240 Output Total 1900 1450 Balance -1900 -1210 Intake: Oral 240 Output: Urine 1900 1450 Other: Voiding Method Indwelling Catheter # Bowel Movements 0 Weight 140.614 kg PHYSICAL EXAMINATION: GENERAL: The patient is alert and oriented x3, not in any acute distress. Well developed, well nourished. HEENT: Pupils are round and equally reacting to light. EOMI. No scleral icterus. No conjunctival pallor. Normocephalic, atraumatic. No pharyngeal erythema. No thyromegaly. CARDIOVASCULAR: S1 and S2 present. No murmurs, rubs, or gallops. PULMONARY: Chest is clear to auscultation, no wheezing or crackles. ABDOMEN: Soft, nontender, nondistended, normoactive bowel sounds. No palpable organomegaly. MUSCULOSKELETAL: No joint swelling or deformity. EXTREMITIES: No cyanosis, clubbing, or pedal edema. NEUROLOGICAL: Gross neurological examination did not reveal any focal deficits. SKIN: No rashes. Results CBC & Chem 7: 02/03/22 07:34 02/03/22 07:34 Labs: Abnormal Lab Results - Last 24 Hours (Table) 02/03/22 02/03/22 02/03/22 Range/Units 00:07 00:07 02:34 WBC 20.2 H (3.8-10.6) k/uL Hgb 12.1 L (13.0-17.5) gm/dL MCHC 30.7 L (31.0-37.0) g/dL RDW 16.3 H (11.5-15.5) % Neutrophils # 19.1 H (1.3-7.7) k/uL Lymphocytes # 0.4 L (1.0-4.8) k/uL Sodium 131 L (137-145) mmol/L Potassium 6.8 H* (3.5-5.1) mmol/L Chloride 95 L (98-107) mmol/L BUN 99 H (9-20) mg/dL Creatinine 6.48 H (0.66-1.25) mg/dL Glucose 163 H (74-99) mg/dL Calcium 7.8 L (8.4-10.2) mg/dL Phosphorus 6.5 H (2.5-4.5) mg/dL Magnesium 2.8 H (1.6-2.3) mg/dL Albumin 3.3 L (3.5-5.0) g/dL Urine Blood Moderate H (Negative) Urine RBC 13 H (0-5) /hpf 02/03/22 Range/Units 07:34 WBC (3.8-10.6) k/uL Hgb (13.0-17.5) gm/dL MCHC (31.0-37.0) g/dL RDW (11.5-15.5) % Neutrophils # (1.3-7.7) k/uL Lymphocytes # (1.0-4.8) k/uL Sodium 136 L (137-145) mmol/L Potassium 5.5 H (3.5-5.1) mmol/L Chloride (98-107) mmol/L BUN 78 H (9-20) mg/dL Creatinine 4.72 H (0.66-1.25) mg/dL Glucose 105 H (74-99) mg/dL Calcium 7.5 L (8.4-10.2) mg/dL Phosphorus (2.5-4.5) mg/dL Magnesium 2.7 H (1.6-2.3) mg/dL Albumin (3.5-5.0) g/dL Urine Blood (Negative) Urine RBC (0-5) /hpf Thrombosis Risk Factor Assmnt - Choose All That Apply Each Factor Represents 1 point: Medical pt on bed rest, Obesity (BMI >25) Other Risk Factors: Yes Each Risk Factor Represents 2 Points: Age 61-74 years Other congenital or acquired thrombophilia - If yes, enter type in comment: No Thrombosis Risk Factor Assessment Total Risk Factor Score: 4 Thrombosis Risk Factor Assessment Level: Moderate Risk Assessment and Plan Assessment: 1. Sepsis; likely related to pneumonia and UTI; as indicated by elevated WBCs, altered mental status -- we will continue with current antibiotics; monitor CBC, CRP and pro- calcitonin 2. Possible pneumonia; patient has been placed on Unasyn 3 g IV every 8 hours; we will add IV doxycycline; we will check for mycoplasma antibodies along with Legionella and Streptococcus antigen; order sputum and blood culture if patient able to give a sputum specimen; DuoNeb nebulizer treatments 4 times a day and when necessary - Symptomatically treatment of pneumonia 3. UTI; patient placed on Unasyn; blood and urine cultures are obtained; we will tailor antibiotic therapy 4. Acute renal failure; likely related to obstructive uropathy; creatinine has improved from 6.4 upon admission down to 4.7 today; patient has a baseline creatinine of 1 - Nephrology on board and recommending to continue Hep-Lock IV fluids; patient will receive a dose of Lasix 40 mg IV 1; monitor strict CHARU's, daily weights, renal function and electrolytes; avoid nephrotoxins and hypotension 5. Critical hyperkalemia; treated in ED; potassium level at 5.5 this morning; we will continue to monitor lites closely 6. Bilateral hydronephrosis/obstructive uropathy; urology is consulted; patient has been placed on Flomax 0.4 mg daily; we will continue to monitor renal function and urine output 7. Altered mental status; likely related to acute renal failure/uremia versus sepsis with UTI and pneumonia 8. Hypertension; stable on home antihypertensive therapy 9. Status post T9 to T11 laminectomy; orthopedic consult in place CODE STATUS; full code
[2022-02-03] MEDS: oxyCODONE-APAP 7.5-325MG 1 EACH TAB PO PRN (18:13)
[2022-02-03 18:42] LABS: Potassium 5.7 mmol/L (3.5-5.1)
[2022-02-03] MEDS: METOPROLOL TARTRATE 50 MG TAB PO SCH (20:54)
[2022-02-03] MEDS: DOXYCYCLINE 100 MG in SODIUM CHLORIDE 0.9% 100 ML IVPB SCH (20:54)
[2022-02-03] MEDS: GABAPENTIN 300 MG CAP PO SCH (20:55)
[2022-02-04] MEDS: AMPICILLIN-SULBACTAM 3 GM in SODIUM CHLORIDE 0.9% 100 ML IVPB SCH ×2 (05:11→16:30)
[2022-02-04] MEDS: GABAPENTIN 300 MG CAP PO SCH ×3 (05:11→22:41)
[2022-02-04] MEDS ORDERED: AMPICILLIN-SULBACTAM 3 GM in SODIUM CHLORIDE 0.9% 100 ML IVPB SCH (06:00)
--- NOTE | 2022-02-04 06:10 | P.PN ---
Subjective Progress Note Date: 02/04/22 Principal diagnosis: History of recent spine surgery, lab abnormalities Patient evaluated at bedside today, he is resting his hospital bed. He states he's having no acute changes with regards to his back. Patient denies any fevers or chills this time. Patient also denies any chest pain or shortness of breath at this time. Objective - Vital Signs Vital signs: Vital Signs Temp 97.6 F 02/04/22 04:00 Pulse 65 02/04/22 04:00 Resp 16 02/04/22 04:00 BP 123/65 02/04/22 04:00 Pulse Ox 95 02/04/22 04:00 FiO2 Intake & Output 02/03/22 02/03/22 02/04/22 06:59 18:59 06:59 Intake Total 840 10 Output Total 1900 5350 1450 Balance -1900 -4510 -1440 Weight 140.614 kg Intake: IV 10 Invasive Line 1 10 Oral 840 Output: Urine 1900 5350 1450 Other: Voiding Method Indwelling Catheter Indwelling Catheter Indwelling Catheter # Bowel Movements 0 - Exam Gen: AOx3, NAD VSS stable at this time Integument: Foam dressing was removed today at bedside, vinita are all in good position and condition. There is no erythema surrounding the incision. There is no areas of fluctuance appreciated Palpation: No severe tenderness with palpation to the midline and paraspinal region of the lower thoracic spine ROM: Full range of motion in all major muscle groups of the bilateral upper and lower extremities, no focal deficits appreciated Sensory Exam: Senory exam to light touch is intact C5-T1 Senosry exam to light touch is intact L2-S1 Motor: 55 strength appreciated in the bilateral upper extremities with shoulder elevation, shoulder abduction, elbow extension, elbow flexion, wrist extension, wrist flexion, supplemental manager 4+/5 strength appreciated the bilateral lower extremities with hip flexion, knee extension, knee flexion 55 strength appreciated the bilateral lower extremities with plantar flexion, dorsiflexion, EHL, FHL Reflexes: 2/4 in all UE and LE Negative Doni's bilaterally Negative Babinski bilaterally Negative clonus right, positive clonus left 2 beats - Labs CBC & Chem 7: 02/03/22 07:34 02/03/22 17:51 Labs: Abnormal Lab Results - Last 24 Hours (Table) 02/03/22 02/03/2222 Range/Units 07:34 07:34 17:51 WBC 16.0 H (3.8-10.6) k/uL Hgb 11.2 L (13.0-17.5) gm/dL Hct 36.7 L (39.0-53.0) % MCHC 30.6 L (31.0-37.0) g/dL RDW 16.8 H (11.5-15.5) % Neutrophils # 14.6 H (1.3-7.7) k/uL Lymphocytes # 0.5 L (1.0-4.8) k/uL Sodium 136 L 133 L (137-145) mmol/L Potassium 5.5 H 5.7 H (3.5-5.1) mmol/L Chloride 97 L (98-107) mmol/L BUN 78 H 59 H (9-20) mg/dL Creatinine 4.72 H 3.18 H (0.66-1.25) mg/dL Glucose 105 H 207 H (74-99) mg/dL Calcium 7.5 L 8.0 L (8.4-10.2) mg/dL Magnesium 2.7 H (1.6-2.3) mg/dL Microbiology - Last 24 Hours (Table) 02/03/22 03:20 Blood Culture - Preliminary Blood No Growth after 24 hours 02/03/22 03:00 Blood Culture - Preliminary Blood No Growth after 24 hours Assessment and Plan Assessment: Status post T8-T12 decompression with posterior lateral stabilization, tumor resection Significant lab abnormalities Multiple medical comorbidities Plan: Orthopedically patient remains very stable at this time. Activity level instructions were discussed the patient, this to include no bending, lifting or twisting. Patient needs TLSO brace when up and ambulating with a walker. Okay to not utilize brace if transferring to chair and bed. Wound care instructions, will apply up to foam dressing on 02/05/2022 GI and DVT prophylaxis per primary medical service Pain control, would recommend continuing his current pain medication he was taking at discharge Other medical specialty recommendations We'll continue to follow during his inpatient stay Time with Patient: Less than 30
[2022-02-04 08:19] LABS: Anisocytosis Slight; Basophils % (A) 0 %; Eosinophils # (A) 0.1 k/uL (0-0.7); Eosinophils % (A) 1 %; HGB 12.2 gm/dL (13.0-17.5); Hypochromasia Slight; Lymphocytes # (A) 1.1 k/uL (1.0-4.8); Lymphocytes % (A) 9 %; MCH 26.4 pg (25.0-35.0); MCHC 31.3 g/dL (31.0-37.0); MCV 84.3 fL (80.0-100.0); Mean Platelet Volume 7.4; Monocytes # (A) 0.5 k/uL (0-1.0); Monocytes % (A) 4 %; Neutrophils # (A) 9.8 k/uL (1.3-7.7); Neutrophils % (A) 84 %; Platelet Count 321 k/uL (150-450); RBC 4.63 m/uL (4.30-5.90); RDW 16.6 % (11.5-15.5); WBC 11.7 k/uL (3.8-10.6)
[2022-02-04] MEDS: PSYLLIUM HUSK 100% 6 GM PACKET PO SCH (08:23)
[2022-02-04] MEDS: TAMSULOSIN 0.4 MG CAP.ER.24H PO SCH (08:25)
[2022-02-04] MEDS: PANTOPRAZOLE 40 MG TABLET PO SCH (08:25)
[2022-02-04] MEDS: oxyCODONE-APAP 7.5-325MG 1 EACH TAB PO PRN (08:25)
[2022-02-04] MEDS: METOPROLOL TARTRATE 50 MG TAB PO SCH ×2 (08:25→19:48)
[2022-02-04] MEDS: dexAMETHasone 2 MG TAB PO SCH (08:25)
[2022-02-04 08:30] LABS: Calcium 8.1 mg/dL (8.4-10.2); Magnesium 2.2 mg/dL (1.6-2.3); Potassium 5.3 mmol/L (3.5-5.1); Total Bilirubin 0.3 mg/dL (0.2-1.3); Total Protein 6.2 g/dL (6.3-8.2)
[2022-02-04] MEDS: IPRATROPIUM-ALBUTEROL 3 ML NEB INHALATION SCH ×3 (09:00→19:11)
[2022-02-04] MEDS ORDERED: FUROSEMIDE 10 MG/ML 4 ML VIAL IV STA (09:25)
--- NOTE | 2022-02-04 09:27 | P.PN ---
Subjective Patient is seen in follow-up for acute kidney injury. Renal function improving. Potassium level also improved. Nonoliguric. Has Weaver catheter. Oral intake good. No vomiting or diarrhea. Vital signs are stable. General: Awake and alert. No acute distress. HEENT: Head exam is unremarkable. LUNGS: Breath sounds decreased. HEART: Rate and Rhythm are regular. ABDOMEN: Soft, no distention. EXTREMITITES: 1+ edema. Objective - Vital Signs Vital signs: Vital Signs Temp 97.6 F 02/04/22 04:00 Pulse 65 02/04/22 09:14 Resp 16 02/04/22 04:00 BP 123/65 02/04/22 04:00 Pulse Ox 95 02/04/22 04:00 FiO2 Intake & Output 02/03/22 02/04/22 02/04/22 18:59 06:59 18:59 Intake Total 840 10 Output Total 5350 1450 Balance -4510 -1440 Weight 154 kg Intake: IV 10 Invasive Line 1 10 Oral 840 Output: Urine 5350 1450 Other: Voiding Method Indwelling Catheter Indwelling Catheter - Labs CBC & Chem 7: 02/04/22 08:02 02/04/22 08:02 Labs: Abnormal Lab Results - Last 24 Hours (Table) 02/03/22 02/03/22 02/04/22 Range/Units 07:34 17:51 08:02 WBC 16.0 H 11.7 H (3.8-10.6) k/uL Hgb 11.2 L 12.2 L (13.0-17.5) gm/dL Hct 36.7 L (39.0-53.0) % MCHC 30.6 L (31.0-37.0) g/dL RDW 16.8 H 16.6 H (11.5-15.5) % Neutrophils # 14.6 H 9.8 H (1.3-7.7) k/uL Lymphocytes # 0.5 L (1.0-4.8) k/uL Sodium 133 L (137-145) mmol/L Potassium 5.7 H (3.5-5.1) mmol/L Chloride 97 L (98-107) mmol/L BUN 59 H (9-20) mg/dL Creatinine 3.18 H (0.66-1.25) mg/dL Glucose 207 H (74-99) mg/dL Calcium 8.0 L (8.4-10.2) mg/dL Total Protein (6.3-8.2) g/dL Albumin (3.5-5.0) g/dL 02/04/22 Range/Units 08:02 WBC (3.8-10.6) k/uL Hgb (13.0-17.5) gm/dL Hct (39.0-53.0) % MCHC (31.0-37.0) g/dL RDW (11.5-15.5) % Neutrophils # (1.3-7.7) k/uL Lymphocytes # (1.0-4.8) k/uL Sodium 136 L (137-145) mmol/L Potassium 5.3 H (3.5-5.1) mmol/L Chloride (98-107) mmol/L BUN 53 H (9-20) mg/dL Creatinine 2.77 H (0.66-1.25) mg/dL Glucose 106 H (74-99) mg/dL Calcium 8.1 L (8.4-10.2) mg/dL Total Protein 6.2 L (6.3-8.2) g/dL Albumin 3.0 L (3.5-5.0) g/dL Microbiology - Last 24 Hours (Table) 02/03/22 03:20 Blood Culture - Preliminary Blood No Growth after 24 hours 02/03/22 03:00 Blood Culture - Preliminary Blood No Growth after 24 hours Assessment and Plan Plan: Assessment: 1. Acute kidney injury secondary to obstructive uropathy. Creatinine 6.4 done admission and is 2.77 today. Baseline creatinine near 1. No proteinuria on UA. 2. Hyperkalemia secondary to acute kidney injury, urinary retention. ?Bactrim. Improved with medical management. 3. Urinary retention with bilateral hydronephrosis. Currently has Weaver catheter. Urology following. On Flomax. 4. Lower extremity edema. Improving with diuresis. 5. Hypervolemic hyponatremia. Improved. 6. Status post T9 to T11 laminectomy in December 2021. Plan: Repeat IV Lasix 40 mg today. Avoid nephrotoxins. Continue to monitor renal function and urine output. Renal diet.
--- NOTE | 2022-02-04 12:30 | P.PN ---
Subjective Progress Note Date: 02/04/22 The patient has urine retention was secondary renal failure and hydronephrosis. An indwelling catheter is allowing his creatinine come down. It was 2.7. He has been placed on Flomax. The plan is to leave indwelling catheter until we see the normalization of his creatinine. At that point time a voiding trial could be considered. Objective - Vital Signs Vital signs: Vital Signs Temp 97.8 F 02/04/22 08:10 Pulse 65 02/04/22 09:14 Resp 16 02/04/22 08:10 BP 105/65 02/04/22 08:10 Pulse Ox 94 L 02/04/22 08:10 FiO2 Intake & Output 02/03/22 02/04/22 02/04/22 18:59 06:59 18:59 Intake Total 840 10 Output Total 5350 1450 650 Balance -4510 -1440 -650 Weight 154 kg Intake: IV 10 Invasive Line 1 10 Oral 840 Output: Urine 5350 1450 650 Other: Voiding Method Indwelling Catheter Indwelling Catheter Indwelling Catheter - Labs CBC & Chem 7: 02/04/22 08:02 02/04/22 08:02 Labs: Abnormal Lab Results - Last 24 Hours (Table) 02/03/22 02/04/22 02/04/22 Range/Units 17:51 08:02 08:02 WBC 11.7 H (3.8-10.6) k/uL Hgb 12.2 L (13.0-17.5) gm/dL RDW 16.6 H (11.5-15.5) % Neutrophils # 9.8 H (1.3-7.7) k/uL Sodium 133 L 136 L (137-145) mmol/L Potassium 5.7 H 5.3 H (3.5-5.1) mmol/L Chloride 97 L (98-107) mmol/L BUN 59 H 53 H (9-20) mg/dL Creatinine 3.18 H 2.77 H (0.66-1.25) mg/dL Glucose 207 H 106 H (74-99) mg/dL Calcium 8.0 L 8.1 L (8.4-10.2) mg/dL Total Protein 6.2 L (6.3-8.2) g/dL Albumin 3.0 L (3.5-5.0) g/dL Microbiology - Last 24 Hours (Table) 02/03/22 03:20 Blood Culture - Preliminary Blood No Growth after 24 hours 02/03/22 03:00 Blood Culture - Preliminary Blood No Growth after 24 hours
[2022-02-04] MEDS: DOXYCYCLINE 100 MG in SODIUM CHLORIDE 0.9% 100 ML IVPB SCH ×2 (12:38→22:41)
--- NOTE | 2022-02-04 22:22 | P.CONS ---
History of Present Illness - Reason for Consult Consult date: 02/04/22 FLOWER, Met lung cancer - History of Present Illness The patient is a 71-year-old male, recently seen in consult, around 01/17/22. He was undergoing workup for a lung lesion, with suspicion of bone metastasis. However, he acutely presented with worsening lower back pain and difficulty with ambulation. He was found to have a spinal cord compression at the level of T10. The patient's oncologic history began this past October when he developed anterior chest wall pain. He attributed this to his dog jumping on him. He reportedly had a CT scan of the chest and [facility] ER on November 17, 2021. This study apparently revealed a 1.7 cm right lower lung nodule, and the patient was recommended to undergo further workup. He underwent a PET/CT also at [facility] on January 08. This revealed abnormal activity in the right lower lung nodule, as well as abnormal-appearing right hilar lymph nodes and several foci of bone metastases including the sternum, thoracic and lumbar spine. The patient was referred to Dr. Smith. Pulmonary function testing revealed an FEV1 of 32%. They were planning on undergoing biopsy, however the patient developed severe onset of lower back pain and presented to the ER. He presented to ER at [facility] on January 17 with severe back pain and inability to walk. A CT scan of the lumbar spine from January 18 revealed a destuctive of changes at the T10 vertebral body with 20% compression deformity felt to potentially be pathologic with retropulsion into the spinal canal. A subsequent CT scan of the thoracic spine and cervical spine redemonstrated the T10 lytic lesion, as well as showing an abnormal lesion in L1. MRI also revealed the T10 vertebral body lesion with 4 mm retropulsion into the spinal canal, and this was noted to cause cord edema at that level. There was a smaller, hypointense lesion at L1. The patient was subsequently started on dexamethasone as well as pain med ications and placed on bedrest. he was seen by orthopedic spine surgery, and underwent a decompressive laminectomy on 01/23/22. 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 the patient was discharged to [facility] on 02/09/22. He was brought back to the hospital because of abnormal labs, specifically markedly elevated BUN/creatinine.CT scan of the abdomen and pelvis showed bilateral perinephric stranding, and hydronephrosis/hydroureter on the right. CAT scan was done after Weaver catheter placement. 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 after placement of the Weaver catheter, creatinine has been improving. Review of Systems Constitutional: Reports fatigue, Reports weakness Eyes: denies blurred vision, denies pain Ears: deny: decreased hearing, ear discharge, earache, tinnitus Ears, nose, mouth and throat: Denies headache, Denies sore throat Cardiovascular: Reports decreased exercise tolerance Respiratory: Denies cough Gastrointestinal: Denies abdominal pain, Denies diarrhea, Denies nausea, Denies vomiting Genitourinary: Reports as per HPI, Reports urinary hesitancy Musculoskeletal: Reports as per HPI, Reports leg numbness/tingling, Reports low back pain, Reports muscle weakness Integumentary: Denies pruritus, Denies rash Neurological: Reports as per HPI, Reports balance difficulties, Reports motor disturbance, Reports weakness Psychiatric: Denies anxiety, Denies depression Endocrine: Reports fatigue Hematologic/Lymphatic: Reports as per HPI Past Medical History Additional Past Medical History / Comment(s): Patient previously had perforated sigmoid diverticulitis and had to establish colostomy which was reversed in August and has done well, back pain compression fx History of Any Multi-Drug Resistant Organisms: None Reported Past Surgical History: Appendectomy, Bowel Resection Additional Past Surgical History / Comment(s): colostomy reversed 11/19/13 Past Psychological History: No Psychological Hx Reported Smoking Status: Former smoker Past Alcohol Use History: Occasional Past Drug Use History: Marijuana Medications and Allergies Home Medications Medication Instructions Recorded Confirmed Type Furosemide [Lasix] 20 mg PO DAILY 01/18/22 02/03/22 History Potassium Chloride [Potassium 8 meq PO DAILY 01/18/22 02/03/22 History Chloride ER] Methadone [Dolophine] 2.5 mg PO Q12H #6 tab 01/30/22 02/03/22 Rx Metoprolol Tartrate [Lopressor] 50 mg PO BID tab 01/30/22 02/03/22 Rx Psyllium Husk 100% [Metamucil 6 gm PO DAILY packet 01/30/22 02/03/22 Rx Packet] Sennosides [Senokot] 8.6 mg PO DAILY PRN tab 01/30/22 02/03/22 Rx Sulfamethox-Tmp 800-160Mg [Bactrim 1 tab PO Q12HR 5 Days #10 tab 01/30/22 02/03/22 Rx DS 800-160 mg] oxyCODONE-APAP 7.5-325MG [Percocet 1 tab PO Q6HR PRN #12 tab 01/30/22 02/03/22 Rx 7.5-325 mg] Cyclobenzaprine [Flexeril] 10 mg PO TID@0600,1400,2200 02/03/22 02/03/22 History Dexamethasone [Decadron] See Taper PO DIRECTED 02/03/22 02/03/22 History Gabapentin [Neurontin] 300 mg PO TID@0600,1400,2200 02/03/22 02/03/22 History Ipratropium-Albuterol Nebulize 3 ml INHALATION RT-Q8H 02/03/22 02/03/22 History [Duoneb 0.5 mg-3 mg/3 ml Soln] Pantoprazole [Protonix] 40 mg PO DAILY@0600 02/03/22 02/03/22 History Allergies Allergy/AdvReac Type Severity Reaction Status Date / Time cephalexin monohydrate Allergy Itching Verified 02/03/22 12:16 [From Keflex] Physical Exam Vitals: Vital Signs Temp Pulse Pulse Resp BP Pulse Ox 02/04/22 20:00 98 F 77 20 121/77 92 L 02/04/22 19:23 85 02/04/22 19:11 82 02/04/22 16:25 98.1 F 73 18 118/78 95 02/04/22 14:30 73 16 02/04/22 12:30 73 16 102/58 92 L 02/04/22 09:14 65 02/04/22 09:00 65 02/04/22 08:10 97.8 F 70 16 105/65 94 L 02/04/22 04:00 97.6 F 65 16 123/65 95 02/04/22 00:00 97.7 F 92 16 116/74 92 L Intake and Output 02/04/22 02/04/22 02/04/22 06:59 14:59 22:59 Intake Total 1350 480 Output Total 1450 2150 500 Balance -1450 -800 -20 Intake: Oral 1350 480 Output: Urine 1450 2150 500 Other: Voiding Method Indwelling Catheter Indwelling Catheter Indwelling Catheter Weight 154 kg - Constitutional General appearance: no acute distress - EENT Eyes: EOMI, PERRLA ENT: hearing grossly normal, normal oropharynx - Neck Neck: no lymphadenopathy Thyroid: bilateral: normal size - Respiratory Respiratory: bilateral: CTA - Cardiovascular Rhythm: regular Heart sounds: normal: S1, S2 - Gastrointestinal General gastrointestinal: normal bowel sounds, soft - Integumentary Integumentary: normal - Neurologic Neurologic: CNII-XII intact - Musculoskeletal lower extremity strength, for-4+ over 5 in that breast. Gait not tested. Lower abdominal, perineal, and lower extremity sensation appears to be grossly intact Musculoskeletal: generalized weakness - Psychiatric Psychiatric: A&O x's 3, appropriate affect Results CBC & Chem 7: 02/04/22 08:02 02/04/22 08:02 Labs: Abnormal Lab Results - Last 24 Hours (Table) 02/04/22 02/04/22 Range/Units 08:02 08:02 WBC 11.7 H (3.8-10.6) k/uL Hgb 12.2 L (13.0-17.5) gm/dL RDW 16.6 H (11.5-15.5) % Neutrophils # 9.8 H (1.3-7.7) k/uL Sodium 136 L (137-145) mmol/L Potassium 5.3 H (3.5-5.1) mmol/L BUN 53 H (9-20) mg/dL Creatinine 2.77 H (0.66-1.25) mg/dL Glucose 106 H (74-99) mg/dL Calcium 8.1 L (8.4-10.2) mg/dL Total Protein 6.2 L (6.3-8.2) g/dL Albumin 3.0 L (3.5-5.0) g/dL Microbiology - Last 24 Hours (Table) 02/03/22 17:51 Blood Culture - Preliminary Blood No Growth after 24 hours 02/03/22 03:20 Blood Culture - Preliminary Blood No Growth after 24 hours 02/03/22 03:00 Blood Culture - Preliminary Blood No Growth after 24 hours Comments: EKG report and image reviewed CT scan - abdomen: report reviewed CT scan - pelvis: report reviewed Assessment and Plan (1) FLOWER (acute kidney injury) Narrative/Plan: this was felt to be due to bladder atonia, causing urinary retention. The patient's urine output has been quite satisfactorily since placement of Weaver catheter, and creatinine is improving. Urology and nephrology are following. It has been recommended that Weaver be left in Current Visit: Yes Status: Acute Code(s): N17.9 - ACUTE KIDNEY FAILURE, UNSPECIFIED SNOMED Code(s): 58597295 (2) Adenocarcinoma, lung Narrative/Plan: diagnostic and therapeutic circumstances so far, described in the HPI. The plan is for the patient to start radiation, after sufficient wound healing. He will then be seen in the office to start systemic therapy. N GS for biomarker testing has been ordered. Current Visit: No Status: Acute Priority: High Code(s): C34.90 - MALIGNANT NEOPLASM OF UNSP PART OF UNSP BRONCHUS OR LUNG SNOMED Code(s): 997266569 (3) Compression of spinal cord Narrative/Plan: lower extremity strength has improved since surgery. Patient is able to bear weight. He will continue rehabilitation post discharge Current Visit: No Status: Acute Priority: High Code(s): G95.20 - UNSPECIFIED CORD COMPRESSION SNOMED Code(s): 86356581
[2022-02-05] MEDS: AMPICILLIN-SULBACTAM 3 GM in SODIUM CHLORIDE 0.9% 100 ML IVPB SCH (03:26)
[2022-02-05] MEDS ORDERED: VANCOMYCIN IV PER PHARMACY 1 EACH MISC MISCELLANE PRN (04:30)
[2022-02-05] MEDS ORDERED: VANCOMYCIN 2,250 MG in SODIUM CHLORIDE 0.9% 500 ML 500 ML IVPB ONE (04:45)
[2022-02-05] MEDS: GABAPENTIN 300 MG CAP PO SCH ×3 (05:44→22:51)
[2022-02-05] MEDS: IPRATROPIUM-ALBUTEROL 3 ML NEB INHALATION SCH ×3 (07:40→19:25)
[2022-02-05 07:57] LABS: Calcium 8.3 mg/dL (8.4-10.2); Potassium 5.3 mmol/L (3.5-5.1)
[2022-02-05] MEDS: PANTOPRAZOLE 40 MG TABLET PO SCH (08:23)
[2022-02-05] MEDS: PSYLLIUM HUSK 100% 6 GM PACKET PO SCH (08:23)
[2022-02-05] MEDS: TAMSULOSIN 0.4 MG CAP.ER.24H PO SCH (08:23)
[2022-02-05] MEDS: METOPROLOL TARTRATE 50 MG TAB PO SCH ×2 (08:23→19:37)
[2022-02-05] MEDS: dexAMETHasone 2 MG TAB PO SCH (08:23)
--- NOTE | 2022-02-05 08:32 | P.PN ---
Subjective Progress Note Date: 02/05/22 Principal diagnosis: History of recent spine surgery lab abnormalities Patient seen and examined at bedside. Patient lying recumbent in bed while eating breakfast. He states his pain is controlled on current regimen. Patient states he is feeling better today and has been working with physical therapy getting up to chair. TLSO brace is at bedside. Surgical dressing will be changed today. Patient states he has not had bowel movement in a few days, MiraLAX has been added. Patient has been afebrile, denies nausea/vomiting, or chest pain. Objective - Vital Signs Vital signs: Vital Signs Temp 97.9 F 02/05/22 04:00 Pulse 72 02/05/22 07:50 Resp 18 02/05/22 04:00 BP 109/60 02/05/22 04:00 Pulse Ox 90 L 02/05/22 07:43 FiO2 Intake & Output 02/04/22 02/05/22 02/05/22 18:59 06:59 18:59 Intake Total 1590 240 Output Total 2150 1250 Balance -560 -1010 Intake: Oral 1590 240 Output: Urine 2150 1250 Other: Voiding Method Indwelling Catheter Indwelling Catheter - Exam Physical Examination General: The patient is awake and alert, in no acute distress Skin: Skin is warm and dry with no obvious rashes or lesions. Hairy patches absent, no dorsal skin dimples, no cafe au lait spots, surgical incision to thoracic region. Eye: Pupils are equal, round and reactive to light, extra-ocular movements are intact; there is normal conjunctiva bilaterally. Neck: The neck is supple, there is no tenderness and ROM intact. Cardiovascular: There is a regular rate and rhythm. No murmur, rub or gallop is appreciated. Respiratory: Lungs are clear to auscultation, respirations are non-labored, breath sounds are equal. Gastrointestinal: Soft, non-distended, non-tender abdomen . Back: There is no tenderness to palpation in the midline, paralumbar, parathoracic or buttocks region. There is no obvious deformity . Musculoskeletal: ROM limited secondary to pain and stiffness from surgical procedure. Shoulder abduction 5/5, elbow flexors 5/5, wrist dorsiflexors 5/5. finger abductor 5/5, automotive project engineer 5/5, hip flexor 4/5, knee flexor 4/5, ankle dorsiflexor 4/5, ankle plantarflexion 4/5 and extensor hallucis 4/5. Neurological: CN 2-12 intact. There are no obvious motor or sensory deficits. Movement and coordination equal and intact. Sensory exam to light touch intact C5-T1 and intact from L2-S1. Reflexes 2/4 in bilateral upper and lower extremities. Negative Hoffmans, babinski, and clonus signs. Psychiatric: Cooperative, appropriate mood & affect, normal judgment. - Labs CBC & Chem 7: 02/04/22 08:02 02/05/22 07:18 Labs: Abnormal Lab Results - Last 24 Hours (Table) 02/04/22 02/04/22 02/05/22 Range/Units 08:02 08:02 07:18 WBC 11.7 H (3.8-10.6) k/uL Hgb 12.2 L (13.0-17.5) gm/dL RDW 16.6 H (11.5-15.5) % Neutrophils # 9.8 H (1.3-7.7) k/uL Sodium 136 L (137-145) mmol/L Potassium 5.3 H 5.3 H (3.5-5.1) mmol/L Carbon Dioxide 32 H (22-30) mmol/L BUN 53 H 51 H (9-20) mg/dL Creatinine 2.77 H 2.65 H (0.66-1.25) mg/dL Glucose 106 H (74-99) mg/dL Calcium 8.1 L 8.3 L (8.4-10.2) mg/dL Total Protein 6.2 L (6.3-8.2) g/dL Albumin 3.0 L (3.5-5.0) g/dL Microbiology - Last 24 Hours (Table) 02/03/22 03:20 Blood Culture - Preliminary Blood No Growth after 48 hours 02/03/22 03:00 Blood Culture - Preliminary Blood No Growth after 48 hours 02/03/22 17:51 Blood Culture Gram Stain - Preliminary Blood 02/03/22 17:51 Blood Culture - Final Blood Assessment and Plan Assessment: Status post T8-T12 decompression with posterior lateral stabilization, tumor resection Significant lab abnormalities Multiple medical comorbidities Plan: Plan: -Appreciate clinical education consultant and team management. -Activity: Ambulate QID, OOB all meals, up and about, limit lifting bending twisting to less than 5 lbs. Use walker or cane if needed for stability. -Daily PT/OT, increase ambulation strength and balance. -Brace when up and about, not needed in bed or chair -Pain control: Adequate at this time -Incision care: dressing to be changed 02/05/22 -Meds: reviewed -GI ppx: senna, Miralax -DVT PPX: SCDs -Encourage IS 10x/hr -Dispo: We will continue to follow while patient is hospitalized. *I reviewed and discussed this case with my attending Dr. Moreno, whom has reviewed this chart and films and is in agreement with assessment and plan of care as outlined above. I have personally seen and examined the patient, performed the documentation and the assessment and plan as written. Number of minutes spent on the visit: [ ].
--- NOTE | 2022-02-05 11:20 | P.PN ---
Subjective Progress Note Date: 02/04/22 71-year-old male patient with history of hypertension, asthma and chronic back pain with recent back surgery, at which time he was discharged to rehab facility, presents to ED with complaint of abnormal labs, markedly elevated BUN; patient is chest pain, abdominal pain or shortness of breath The patient underwent a back surgery approximately week ago. He has been in [facility] and apparently was found to have renal failure. He is found to be in urine retention of a large volume in this hospitalization. The patient states that prior to his back surgery and subsequent from his back surgery is not havi ng too much difficulty urination. He has not had incontinence. He denies pain or discomfort with urination. There's been no hematuria. On alpha blockers prior to this hospitalization the. He does have an indwelling catheter. I saw him many years ago for apparent voiding dysfunction but never needed follow-up and has not had any problems subsequent. In the ED CT of the abdomen and pelvis showed bilateral hydronephrosis with concern for pyelonephritis. Chest x-ray reveals pneumonia Labs revealed a WBC of 20.2, hemoglobin of 12.1, sodium 131, potassium 6.8, BUN/creatinine of 199/6.48 02/04/2022 Patient is currently resting in the bed. Awake alert and oriented 3. No complains of chest pain or shortness of breath. Denied any abdominal pain. Patient does have Weaver catheter indwelling in place. Creatinine level trending down today. No complains of fever or chills. Patient is also on antibiotics doxycycline and Augmentin.. Blood cultures showed gram-positive cocci in clusters. Vancomycin was added empirically and follow up final culture report. Patient has been afebrile. Symmetrical improving. Nephrology and urology is on board. Current medications reviewed. Objective - Vital Signs Vital signs: Vital Signs Temp 97.8 F 02/04/22 08:10 Pulse 73 02/04/22 14:30 Resp 16 02/04/22 14:30 BP 102/58 02/04/22 12:30 Pulse Ox 92 L 02/04/22 12:30 FiO2 Intake & Output 02/03/22 02/04/22 02/04/22 18:59 06:59 18:59 Intake Total 840 10 Output Total 5350 1450 2150 Balance -4510 -1440 -2150 Weight 154 kg Intake: IV 10 Invasive Line 1 10 Oral 840 Output: Urine 5350 1450 2150 Other: Voiding Method Indwelling Catheter Indwelling Catheter Indwelling Catheter - Exam PHYSICAL EXAMINATION: GENERAL: The patient is alert and oriented x3, not in any acute distress. Well developed, well nourished. HEENT: Pupils are round and equally reacting to light. EOMI. No scleral icterus. No conjunctival pallor. Normocephalic, atraumatic. No pharyngeal erythema. No thyromegaly. CARDIOVASCULAR: S1 and S2 present. No murmurs, rubs, or gallops. PULMONARY: Chest is clear to auscultation, no wheezing or crackles. ABDOMEN: Soft, nontender, nondistended, normoactive bowel sounds. No palpable organomegaly. MUSCULOSKELETAL: No joint swelling or deformity. EXTREMITIES: No cyanosis, clubbing, or pedal edema. NEUROLOGICAL: Gross neurological examination did not reveal any focal deficits. SKIN: No rashes. - Labs CBC & Chem 7: 02/04/22 08:02 02/05/22 07:18 Labs: Abnormal Lab Results - Last 24 Hours (Table) 02/03/22 02/04/22 02/04/22 Range/Units 17:51 08:02 08:02 WBC 11.7 H (3.8-10.6) k/uL Hgb 12.2 L (13.0-17.5) gm/dL RDW 16.6 H (11.5-15.5) % Neutrophils # 9.8 H (1.3-7.7) k/uL Sodium 133 L 136 L (137-145) mmol/L Potassium 5.7 H 5.3 H (3.5-5.1) mmol/L Chloride 97 L (98-107) mmol/L BUN 59 H 53 H (9-20) mg/dL Creatinine 3.18 H 2.77 H (0.66-1.25) mg/dL Glucose 207 H 106 H (74-99) mg/dL Calcium 8.0 L 8.1 L (8.4-10.2) mg/dL Total Protein 6.2 L (6.3-8.2) g/dL Albumin 3.0 L (3.5-5.0) g/dL Microbiology - Last 24 Hours (Table) 02/03/22 03:20 Blood Culture - Preliminary Blood No Growth after 24 hours 02/03/22 03:00 Blood Culture - Preliminary Blood No Growth after 24 hours Assessment and Plan Assessment: 1. Sepsis; likely related to pneumonia and UTI; as indicated by elevated WBCs, altered mental status -- we will continue with current antibiotics; monitor CBC, CRP and pro- calcitonin 2. Possible pneumonia; patient was initially on on Unasyn 3 g IV every 8 hours; added IV doxycycline; ordered mycoplasma antibodies along with Legionella and Streptococcus antigen; order sputum and blood culture if patient able to give a sputum specimen; DuoNeb nebulizer treatments 4 times a day and when necessary - Symptomatically treatment of pneumonia 3. UTI; patient placed on Unasyn; blood and urine cultures are obtained; we will tailor antibiotic therapy 4. Acute renal failure; likely related to obstructive uropathy; creatinine has improved from 6.4 upon admission down to 4.7 today; patient has a baseline creatinine of 1 - Nephrology on board and recommending to continue Hep-Lock IV fluids; patient will receive a dose of Lasix 40 mg IV 1; monitor strict CHARU's, daily weights, renal function and electrolytes; avoid nephrotoxins and hypotension 5. Critical hyperkalemia; treated in ED; potassium level at 5.5 this morning; we will continue to monitor lites closely 6. Bilateral hydronephrosis/obstructive uropathy; urology is consulted; patient has been placed on Flomax 0.4 mg daily; we will continue to monitor renal function and urine output 7. Altered mental status; likely related to acute renal failure/uremia versus sepsis with UTI and pneumonia 8. Hypertension; stable on home antihypertensive therapy 9. Status post T9 to T11 laminectomy; orthopedic consult in place CODE STATUS; full code Time with Patient: Greater than 30
--- NOTE | 2022-02-05 11:26 | P.PN ---
Subjective Patient is seen for follow-up for acute kidney injury which is mostly obstructive. Renal function is currently improving with Weaver catheter. No significant complaints today Urine output 3.4 L last 24 hours. Objective - Vital Signs Vital signs: Vital Signs Temp 98 F 02/05/22 08:00 Pulse 83 02/05/22 08:00 Resp 18 02/05/22 08:00 BP 108/73 02/05/22 08:00 Pulse Ox 91 L 02/05/22 08:00 FiO2 Intake & Output 02/04/22 02/05/22 02/05/22 18:59 06:59 18:59 Intake Total 1590 240 Output Total 2150 1250 Balance -560 -1010 Intake: Oral 1590 240 Output: Urine 2150 1250 Other: Voiding Method Indwelling Catheter Indwelling Catheter Indwelling Catheter - Exam Awake, comfortable, not in any acute distress Examination of the heart S1 and S2 Exertion lungs bilateral breath sounds are heard Abdomen is soft nontender Examination lower extremity shows no significant edema LABORER ORCHARD exam grossly intact - Labs CBC & Chem 7: 02/04/22 08:02 02/05/22 07:18 Labs: Abnormal Lab Results - Last 24 Hours (Table) 02/05/22 Range/Units 07:18 Potassium 5.3 H (3.5-5.1) mmol/L Carbon Dioxide 32 H (22-30) mmol/L BUN 51 H (9-20) mg/dL Creatinine 2.65 H (0.66-1.25) mg/dL Calcium 8.3 L (8.4-10.2) mg/dL Microbiology - Last 24 Hours (Table) 02/03/22 17:51 Blood Culture Gram Stain - Preliminary Blood 02/03/22 03:20 Blood Culture - Preliminary Blood No Growth after 48 hours 02/03/22 03:00 Blood Culture - Preliminary Blood No Growth after 48 hours 02/03/22 17:51 Blood Culture - Final Blood Assessment and Plan Assessment: 1. Acute kidney injury secondary to obstructive uropathy. Creatinine 6.4 and admission and now down to 2.6. Baseline creatinine around 1. No evidence of proteinuria on UA. Patient is maintained on vancomycin. Need to monitor levels closely. 2. Hyperkalemia associated with acute kidney injury and urine retention and possibly related to Bactrim as well. Currently improved 3. Urine retention with bilateral hydronephrosis currently with indwelling Weaver catheter. Patient is maintained on Flomax. Patient is being followed by urology 4. Hypervolemic hyponatremia now improved 5. Status post T9 to T11 laminectomy in December 2021 Plan: Lokelma by mouth 1 Repeat labs in a.m. Monitor vancomycin levels closely given the acute kidney injury Recommend discontinuation of vancomycin
[2022-02-05] MEDS ORDERED: SODIUM ZIRCONIUM CYCLOSILICATE 10 GM PACKET PO ONE (12:00)
[2022-02-05] MEDS: polyethylene glycoL 3350 17 GM POWD.PACK PO SCH (12:38)
[2022-02-05] MEDS: DOXYCYCLINE 100 MG in SODIUM CHLORIDE 0.9% 100 ML IVPB SCH ×2 (12:41→22:51)
--- NOTE | 2022-02-05 15:05 | P.PN ---
Subjective Progress Note Date: 02/05/22 Feeling a little better, urine out in catheter adequate. Creatininwe is trending down Objective - Vital Signs Vital signs: Vital Signs Temp 98 F 02/05/22 08:00 Pulse 83 02/05/22 08:00 Resp 18 02/05/22 08:00 BP 108/73 02/05/22 08:00 Pulse Ox 91 L 02/05/22 08:00 FiO2 Intake & Output 02/04/22 02/05/22 02/05/22 18:59 06:59 18:59 Intake Total 1590 240 Output Total 2150 1250 Balance -560 -1010 Intake: Oral 1590 240 Output: Urine 2150 1250 Other: Voiding Method Indwelling Catheter Indwelling Catheter - Exam - Constitutional General appearance: no acute distress - EENT Eyes: EOMI, PERRLA ENT: hearing grossly normal, normal oropharynx - Neck Neck: no lymphadenopathy Thyroid: bilateral: normal size - Respiratory Respiratory: bilateral: CTA - Cardiovascular Rhythm: regular Heart sounds: normal: S1, S2 - Gastrointestinal General gastrointestinal: normal bowel sounds, soft - Integumentary Integumentary: normal - Neurologic Neurologic: CNII-XII intact - Musculoskeletal lower extremity strength, for-4+ over 5 in that breast. Gait not tested. Lower abdominal, perineal, and lower extremity sensation appears to be grossly intact Musculoskeletal: generalized weakness - Psychiatric Psychiatric: A&O x's 3, appropriate affect - Labs CBC & Chem 7: 02/04/22 08:02 02/05/22 07:18 Labs: Abnormal Lab Results - Last 24 Hours (Table) 02/05/22 Range/Units 07:18 Potassium 5.3 H (3.5-5.1) mmol/L Carbon Dioxide 32 H (22-30) mmol/L BUN 51 H (9-20) mg/dL Creatinine 2.65 H (0.66-1.25) mg/dL Calcium 8.3 L (8.4-10.2) mg/dL Microbiology - Last 24 Hours (Table) 02/03/22 03:20 Blood Culture - Preliminary Blood No Growth after 48 hours 02/03/22 03:00 Blood Culture - Preliminary Blood No Growth after 48 hours 02/03/22 17:51 Blood Culture Gram Stain - Preliminary Blood 02/03/22 17:51 Blood Culture - Final Blood Assessment and Plan Plan: Comments: EKG report and image reviewed CT scan - abdomen: report reviewed CT scan - pelvis: report reviewed Assessment and Plan (1) FLOWER (acute kidney injury) Narrative/Plan: - Urinary retention with likely atonia - Improved with Catheter and trend of creatinine - Urology and nephrology following Current Visit: Yes Status: Acute Code(s): N17.9 - ACUTE KIDNEY FAILURE, UNSPECIFIED SNOMED Code(s): 92017663 (2) Adenocarcinoma, lung Narrative/Plan: - The plan is for the patient to start radiation, after sufficient wound healing. - He will then be seen in the office to start systemic therapy. - N GS for biomarker testing has been ordered. Current Visit: No Status: Acute Priority: High Code(s): C34.90 - MALIGNANT NEOPLASM OF UNSP PART OF UNSP BRONCHUS OR LUNG SNOMED Code(s): 289190928 (3) Compression of spinal cord Narrative/Plan: - lower extremity strength has improved since surgery. - Patient is able to bear weight. He will continue rehabilitation post discharge and once recovered from surgery and improved performance will folllow up in ooffice for initiation of systemic treatment Current Visit: No Status: Acute Priority: High Code(s): G95.20 - UNSPECIFIED CORD COMPRESSION SNOMED Code(s): 26043809
[2022-02-05] MEDS: AMOXIC-POT CLAV 500-125 MG 1 EACH TAB PO SCH (19:37)
[2022-02-06] MEDS ORDERED: VANCOMYCIN 2,250 MG in SODIUM CHLORIDE 0.9% 500 ML 500 ML IVPB ONE (06:00)
[2022-02-06] MEDS: AMOXIC-POT CLAV 500-125 MG 1 EACH TAB PO SCH (06:06)
[2022-02-06] MEDS: GABAPENTIN 300 MG CAP PO SCH ×2 (06:06→15:54)
[2022-02-06] MEDS: IPRATROPIUM-ALBUTEROL 3 ML NEB INHALATION SCH ×3 (07:42→19:34)
[2022-02-06 08:04] LABS: Anisocytosis Slight; Basophils % (A) 0 %; Eosinophils # (A) 0.2 k/uL (0-0.7); Eosinophils % (A) 2 %; HCT 41.1 % (39.0-53.0); HGB 12.3 gm/dL (13.0-17.5); Hypochromasia Moderate; Lymphocytes # (A) 1.4 k/uL (1.0-4.8); Lymphocytes % (A) 11 %; MCV 86.9 fL (80.0-100.0); Mean Platelet Volume 7.7; Monocytes # (A) 0.4 k/uL (0-1.0); Monocytes % (A) 3 %; Neutrophils # (A) 10.6 k/uL (1.3-7.7); Neutrophils % (A) 82 %; Platelet Count 332 k/uL (150-450); RBC 4.74 m/uL (4.30-5.90); RDW 16.8 % (11.5-15.5); WBC 12.9 k/uL (3.8-10.6)
[2022-02-06 08:06] LABS: Calcium 8.6 mg/dL (8.4-10.2); Potassium 3.9 mmol/L (3.5-5.1)
[2022-02-06 08:24] VITALS: RESP 16; TEMP 98.1
[2022-02-06] MEDS: TAMSULOSIN 0.4 MG CAP.ER.24H PO SCH (08:28)
[2022-02-06] MEDS: PSYLLIUM HUSK 100% 6 GM PACKET PO SCH (08:28)
[2022-02-06] MEDS: PANTOPRAZOLE 40 MG TABLET PO SCH (08:28)
[2022-02-06] MEDS: METOPROLOL TARTRATE 50 MG TAB PO SCH (08:28)
[2022-02-06] MEDS: polyethylene glycoL 3350 17 GM POWD.PACK PO SCH (08:28)
[2022-02-06] MEDS: dexAMETHasone 2 MG TAB PO SCH (08:28)
--- NOTE | 2022-02-06 09:08 | P.PN ---
Subjective Progress Note Date: 02/06/22 No acute overnight event, creat is down to 1.33 this am. no evidence of gross hematuria, denies any abdominal pain Objective - Vital Signs Vital signs: Vital Signs Temp 98.1 F 02/06/22 08:00 Pulse 83 02/06/22 08:00 Resp 16 02/06/22 08:00 BP 105/60 02/06/22 08:00 Pulse Ox 95 02/06/22 08:00 FiO2 Intake & Output 02/05/22 02/06/22 02/06/22 18:59 06:59 18:59 Intake Total 240 120 Output Total 1700 975 Balance -1700 -735 120 Intake: Oral 240 120 Output: Urine 1700 975 Other: Voiding Method Indwelling Catheter Indwelling Catheter - Constitutional General appearance: Present: no acute distress - Gastrointestinal General gastrointestinal: Present: soft. Absent: distended, tenderness - Psychiatric Psychiatric: Present: A&O x's 3 - Labs CBC & Chem 7: 02/06/22 07:22 02/06/22 07:22 Labs: Abnormal Lab Results - Last 24 Hours (Table) 02/06/22 02/06/22 Range/Units 07:22 07:22 WBC 12.9 H (3.8-10.6) k/uL Hgb 12.3 L (13.0-17.5) gm/dL MCHC 30.0 L (31.0-37.0) g/dL RDW 16.8 H (11.5-15.5) % Neutrophils # 10.6 H (1.3-7.7) k/uL BUN 37 H (9-20) mg/dL Creatinine 1.33 H (0.66-1.25) mg/dL Glucose 115 H (74-99) mg/dL Microbiology - Last 24 Hours (Table) 02/03/22 03:20 Blood Culture - Preliminary Blood No Growth after 72 hours 02/03/22 03:00 Blood Culture - Preliminary Blood No Growth after 72 hours 02/03/22 17:51 Blood Culture Gram Stain - Preliminary Blood Blood Culture - Preliminary Coagulase Negative Staph Assessment and Plan Assessment: 71-year-old admitted with renal failure, and urinary retention. Creatinine down to 1.33 this morning -From urology standpoint ok to remove Weaver catheter, check postvoid residual after catheter removal. If PVR is greater than 400 recommend reinserting a Weaver -Continue Flomax, recommend discharging home on Flomax
--- NOTE | 2022-02-06 10:42 | P.PN ---
Subjective Patient is seen for follow-up for acute kidney injury which is mostly obstructive. Renal function is currently improving with Weaver catheter. No significant complaints today Urine output 2.6 L last 24 hours. Objective - Vital Signs Vital signs: Vital Signs Temp 98.1 F 02/06/22 08:00 Pulse 83 02/06/22 08:00 Resp 16 02/06/22 08:00 BP 105/60 02/06/22 08:00 Pulse Ox 95 02/06/22 08:00 FiO2 Intake & Output 02/05/22 02/06/22 02/06/22 18:59 06:59 18:59 Intake Total 240 120 Output Total 1700 975 Balance -1700 -735 120 Intake: Oral 240 120 Output: Urine 1700 975 Other: Voiding Method Indwelling Catheter Indwelling Catheter - Exam Awake, comfortable, not in any acute distress Examination of the heart S1 and S2 Examination of the lungs bilateral breath sounds are heard Abdomen is soft nontender Examination lower extremity shows no significant edema FELTMAKER exam grossly intact - Labs CBC & Chem 7: 02/06/22 07:22 02/06/22 07:22 Labs: Abnormal Lab Results - Last 24 Hours (Table) 02/06/22 02/06/22 Range/Units 07:22 07:22 WBC 12.9 H (3.8-10.6) k/uL Hgb 12.3 L (13.0-17.5) gm/dL MCHC 30.0 L (31.0-37.0) g/dL RDW 16.8 H (11.5-15.5) % Neutrophils # 10.6 H (1.3-7.7) k/uL BUN 37 H (9-20) mg/dL Creatinine 1.33 H (0.66-1.25) mg/dL Glucose 115 H (74-99) mg/dL Microbiology - Last 24 Hours (Table) 02/03/22 03:20 Blood Culture - Preliminary Blood No Growth after 72 hours 02/03/22 03:00 Blood Culture - Preliminary Blood No Growth after 72 hours 02/03/22 17:51 Blood Culture Gram Stain - Preliminary Blood Blood Culture - Preliminary Coagulase Negative Staph Assessment and Plan Assessment: 1. Acute kidney injury secondary to obstructive uropathy. Creatinine 6.4 and admission and now down to 1.3 today. Baseline creatinine around 1. No evidence of proteinuria on UA. Patient is maintained on vancomycin. Need to monitor levels closely. 2. Hyperkalemia associated with acute kidney injury and urine retention and possibly related to Bactrim as well. Currently improved 3. Urine retention with bilateral hydronephrosis currently with indwelling Weaver catheter. Patient is maintained on Flomax. Patient is being followed by urology 4. Hypervolemic hyponatremia now improved 5. Status post T9 to T11 laminectomy in December 2021 Plan: Continue Flomax Continue with Weaver catheter Monitor renal function as outpatient. Acute kidney injury has improved significantly
[2022-02-06] MEDS: DOXYCYCLINE 100 MG in SODIUM CHLORIDE 0.9% 100 ML IVPB SCH (11:49)
--- NOTE | 2022-02-06 13:49 | P.PN ---
Subjective Progress Note Date: 02/05/22 71-year-old male patient with history of hypertension, asthma and chronic back pain with recent back surgery, at which time he was discharged to rehab facility, presents to ED with complaint of abnormal labs, markedly elevated BUN; patient is chest pain, abdominal pain or shortness of breath The patient underwent a back surgery approximately week ago. He has been in [facility] and apparently was found to have renal failure. He is found to be in urine retention of a large volume in this hospitalization. The patient states that prior to his back surgery and subsequent from his back surgery is not havi ng too much difficulty urination. He has not had incontinence. He denies pain or discomfort with urination. There's been no hematuria. On alpha blockers prior to this hospitalization the. He does have an indwelling catheter. I saw him many years ago for apparent voiding dysfunction but never needed follow-up and has not had any problems subsequent. In the ED CT of the abdomen and pelvis showed bilateral hydronephrosis with concern for pyelonephritis. Chest x-ray reveals pneumonia Labs revealed a WBC of 20.2, hemoglobin of 12.1, sodium 131, potassium 6.8, BUN/creatinine of 199/6.48 02/04/2022 Patient is currently resting in the bed. Awake alert and oriented 3. No complains of chest pain or shortness of breath. Denied any abdominal pain. Patient does have Weaver catheter indwelling in place. Creatinine level trending down today. No complains of fever or chills. Patient is also on antibiotics doxycycline and Augmentin.. Blood cultures showed gram-positive cocci in clusters. Vancomycin was added empirically and follow up final culture report. Patient has been afebrile. Symmetrical improving. Nephrology and urology is on board. 02/05/2022 Patient is currently resting in the bed. Awake alert and oriented 3. No complaints of chest pain or shortness of breath. Patient does have good urine output. Weaver catheter in place. Creatinine level is improving. Potassium normalized. Next and cultures have been negative. Patient is maintained on antibiotics in the form of Augmentin and doxycycline. Nephrology and urology on board. Continue the pain medications and follow. Current medications reviewed. Objective - Vital Signs Vital signs: Vital Signs Temp 98 F 02/05/22 20:00 Pulse 93 02/05/22 20:00 Resp 20 02/05/22 20:00 BP 100/60 02/05/22 20:00 Pulse Ox 91 L 02/05/22 20:00 FiO2 Intake & Output 02/05/22 02/05/22 02/06/22 06:59 18:59 06:59 Intake Total 240 240 Output Total 1250 1700 300 Balance -1010 -1700 -60 Intake: Oral 240 240 Output: Urine 1250 1700 300 Other: Voiding Method Indwelling Catheter Indwelling Catheter Indwelling Catheter - Exam PHYSICAL EXAMINATION: GENERAL: The patient is alert and oriented x3, not in any acute distress. Well developed, well nourished. HEENT: Pupils are round and equally reacting to light. EOMI. No scleral icterus. No conjunctival pallor. Normocephalic, atraumatic. No pharyngeal erythema. No thyromegaly. CARDIOVASCULAR: S1 and S2 present. No murmurs, rubs, or gallops. PULMONARY: Chest is clear to auscultation, no wheezing or crackles. ABDOMEN: Soft, nontender, nondistended, normoactive bowel sounds. No palpable organomegaly. MUSCULOSKELETAL: No joint swelling or deformity. EXTREMITIES: No cyanosis, clubbing, or pedal edema. NEUROLOGICAL: Gross neurological examination did not reveal any focal deficits. SKIN: No rashes. - Labs CBC & Chem 7: 02/06/22 07:22 02/06/22 07:22 Labs: Abnormal Lab Results - Last 24 Hours (Table) 02/05/22 Range/Units 07:18 Potassium 5.3 H (3.5-5.1) mmol/L Carbon Dioxide 32 H (22-30) mmol/L BUN 51 H (9-20) mg/dL Creatinine 2.65 H (0.66-1.25) mg/dL Calcium 8.3 L (8.4-10.2) mg/dL Microbiology - Last 24 Hours (Table) 02/03/22 17:51 Blood Culture Gram Stain - Preliminary Blood Blood Culture - Preliminary Coagulase Negative Staph 02/03/22 03:20 Blood Culture - Preliminary Blood No Growth after 48 hours 02/03/22 03:00 Blood Culture - Preliminary Blood No Growth after 48 hours 02/03/22 17:51 Blood Culture - Final Blood Assessment and Plan Assessment: 1. Sepsis; likely related to pneumonia and UTI; as indicated by elevated WBCs, altered mental status -- we will continue with current antibiotics; follow cultures. 2. Possible pneumonia; patient was initially on on Unasyn 3 g IV every 8 hours; added IV doxycycline; ordered mycoplasma antibodies along with Legionella and Streptococcus antigen; order sputum and blood culture if patient able to give a sputum specimen; DuoNeb nebulizer treatments 4 times a day and when necessary - Symptomatically treatment of pneumonia 3. UTI; patient placed on Unasyn; blood and urine cultures are obtained; cultures have been negative. 4. Acute renal failure; likely related to obstructive uropathy; creatinine has improved from 6.4 upon admission down to 4.7 today; patient has a baseline creatinine of 1 - Nephrology on board and recommending to continue Hep-Lock IV fluids; monitor strict CHARU's, daily weights, renal function and electrolytes; avoid nephrotoxins and hypotension Patient is status post Weaver catheter placement and continue with Flomax. 5. Critical hyperkalemia; treated in ED; potassium level at 5.3 this morning; improved now. 6. Bilateral hydronephrosis/obstructive uropathy; urology has seen the patient.; patient has been placed on Flomax 0.4 mg daily; trial void prior to d ischarge. 7. Altered mental status; likely related to acute renal failure/uremia versus sepsis with UTI and pneumonia 8. Hypertension; stable on home antihypertensive therapy 9. Status post T9 to T11 laminectomy; orthopedic surgery has seen the patient. Continue steroid tapering course. 10. Adenocarcinoma the lung. Patient is on follow up oncology and is getting radiation therapy. CODE STATUS; full code
--- NOTE | 2022-02-06 14:48 | P.DS ---
Providers Date of admission: 02/03/22 02:15 Expected date of discharge: 02/06/22 Attending physician: Helen Vera Consults: 02/03/22 02:15 Consult Physician Routine Consulting Provider: Sol Costello Consult Reason/Comments: FLOWER Do you want consulting provider notified?: Yes 02/03/22 03:19 Consult Physician Routine Consulting Provider: Brendan Moreno Consult Reason/Comments: known Do you want consulting provider notified?: Yes 02/03/22 10:25 Consult Physician Routine Consulting Provider: Eleazar Burns Consult Reason/Comments: pyelonephritis; hydronephrosis Do you want consulting provider notified?: Yes 02/03/22 10:26 Consult Physician Routine Consulting Provider: Eleazar Burns Consult Reason/Comments: hydronephrosis Do you want consulting provider notified?: Yes 02/03/22 16:21 Consult Physician Routine Consulting Provider: Brendon Naranjo Consult Reason/Comments: pt. known to service, lung cancer Do you want consulting provider notified?: Yes, Notify in am Primary care physician: Iron Valdezqvi Hospital Course: Hospital course Most recent lab results Calcium 8.6 mg/dL (8.4-10.2) 02/06/22 07:22 Phosphorus 6.5 mg/dL (2.5-4.5) H 02/03/22 00:07 Magnesium 2.0 mg/dL (1.6-2.3) 02/05/22 07:18 Diabetes panel 02/06/22 Range/Units 07:22 Sodium 138 (137-145) mmol/L Potassium 3.9 (3.5-5.1) mmol/L Chloride 101 (98-107) mmol/L Carbon Dioxide 30 (22-30) mmol/L BUN 37 H (9-20) mg/dL Creatinine 1.33 H (0.66-1.25) mg/dL Glucose 115 H (74-99) mg/dL Calcium 8.6 (8.4-10.2) mg/dL Calcium panel 02/06/22 Range/Units 07:22 Calcium 8.6 (8.4-10.2) mg/dL Pituitary panel 02/06/22 Range/Units 07:22 Sodium 138 (137-145) mmol/L Potassium 3.9 (3.5-5.1) mmol/L Chloride 101 (98-107) mmol/L Carbon Dioxide 30 (22-30) mmol/L BUN 37 H (9-20) mg/dL Creatinine 1.33 H (0.66-1.25) mg/dL Glucose 115 H (74-99) mg/dL Calcium 8.6 (8.4-10.2) mg/dL Adrenal panel 02/06/22 Range/Units 07:22 Sodium 138 (137-145) mmol/L Potassium 3.9 (3.5-5.1) mmol/L Chloride 101 (98-107) mmol/L Carbon Dioxide 30 (22-30) mmol/L BUN 37 H (9-20) mg/dL Creatinine 1.33 H (0.66-1.25) mg/dL Glucose 115 H (74-99) mg/dL Calcium 8.6 (8.4-10.2) mg/dL 1. Sepsis; likely related to pneumonia and UTI; as indicated by elevated WBCs, altered mental status --Patient was continued on antibiotics. cultures have been negative. He 2. Possible pneumonia; patient was initially on on Unasyn 3 g IV every 8 hours; added IV doxycycline; ordered mycoplasma antibodies along with Legionella and Streptococcus antigen negative study.-; Blood cultures and sputum cultures negative.n; DuoNeb nebulizer treatments 4 times a day and when necessary Improved clinically. 3. UTI; patient placed on Unasyn; blood and urine cultures are obtained; cultures have been negative. 4. Acute renal failure; likely related to obstructive uropathy; creatinine has improved from 6.4 upon admission down to 4.7 today; patient has a baseline creatinine of 1 - Nephrology on board and recommending to continue Hep-Lock IV fluids; monitor strict CHARU's, daily weights, renal function and electrolytes; avoid nephrotoxins and hypotension Patient is status post Weaver catheter placement and continue with Flomax.Trial void within next 24 hours. 5. Critical hyperkalemia; treated in ED; potassium level at 5.3 this morning; improved now. 6. Bilateral hydronephrosis/obstructive uropathy; urology has seen the patient.; patient has been placed on Flomax 0.4 mg daily; trial void prior to discharge. 7. Altered mental status; likely related to acute renal failure/uremia versus sepsis with UTI and pneumonia 8. Hypertension; stable on home antihypertensive therapy 9. Status post T9 to T11 laminectomy; orthopedic surgery has seen the patient. Continue steroid tapering course. 10. Adenocarcinoma the lung. Patient is on follow up oncology and is getting radiation therapy. CODE STATUS; full code Hospital course 71-year-old male patient with history of hypertension, asthma and chronic back pain with recent back surgery, at which time he was discharged to rehab facility, presents to ED with complaint of abnormal labs, markedly elevated BUN; patient is chest pain, abdominal pain or shortness of breath The patient underwent a back surgery approximately week ago. He has been in [facility] and apparently was found to have renal failure. He is found to be in urine retention of a large volume in this hospitalization. The patient states that prior to his back surgery and subsequent from his back surgery is not having too much difficulty urination. He has not had incontinence. He denies pain or discomfort with urination. There's been no hematuria. On alpha blockers prior to this hospitalization the. He does have an indwelling catheter. I saw him many years ago for apparent voiding dysfunction but never needed follow-up and has not had any problems subsequent. In the ED CT of the abdomen and pelvis showed bilateral hydronephrosis with concern for pyelonephritis. Chest x-ray reveals pneumonia Labs revealed a WBC of 20.2, hemoglobin of 12.1, sodium 131, potassium 6.8, BUN/creatinine of 199/6.48 02/04/2022 Patient is currently resting in the bed. Awake alert and oriented 3. No complains of chest pain or shortness of breath. Denied any abdominal pain. Patient does have Weaver catheter indwelling in place. Creatinine level trending down today. No complains of fever or chills. Patient is also on antibiotics doxycycline and Augmentin.. Blood cultures showed gram-positive cocci in clusters. Vancomycin was added empirically and follow up final culture report. Patient has been afebrile. Symmetrical improving. Nephrology and urology is on board. 02/05/2022 Patient is currently resting in the bed. Awake alert and oriented 3. No complaints of chest pain or shortness of breath. Patient does have good urine output. Weaver catheter in place. Creatinine level is improving. Potassium normalized. Next and cultures have been negative. Patient is maintained on antibiotics in the form of Augmentin and doxycycline. Nephrology and urology on board. Continue the pain medications and follow. 02/06/2022 Patient is awake alert and oriented. Able to sit in the chair comfortably. No complaints of chest pain or shortness of breath. Renal function improved with creatinine level I.3 today. patient was seen by urology and recommended Weaver catheter to be discontinued and trial void. Continue with Flomax.. Trial void tomorrow and check post wide residual. reinsert Weaver catheter if greater than 400 mL urine. Follow with urology as an outpatient. Potassium normalized to 3.9 today. Patient is tolerating oral diet. Back pain from recent surgery is controlled. Continue the steroid tapering course. Continue 2 mg of dexamethasone for 3 more days and stop. Follow with oncology as an outpatient for radiation/adenocarcinoma the lung... [facility]. PHYSICAL EXAMINATION: GENERAL: The patient is alert and oriented x3, not in any acute distress. Well developed, well nourished. HEENT: Pupils are round and equally reacting to light. EOMI. No scleral icterus. No conjunctival pallor. Normocephalic, atraumatic. No pharyngeal erythema. No thyromegaly. CARDIOVASCULAR: S1 and S2 present. No murmurs, rubs, or gallops. PULMONARY: Chest is clear to auscultation, no wheezing or crackles. ABDOMEN: Soft, nontender, nondistended, normoactive bowel sounds. No palpable organomegaly. MUSCULOSKELETAL: No joint swelling or deformity. EXTREMITIES: No cyanosis, clubbing, or pedal edema. NEUROLOGICAL: Gross neurological examination did not reveal any focal deficits. SKIN: No rashes. Vital Signs 02/06/22 02/06/22 02/06/22 07:42 07:53 08:00 Temperature 98.1 F Pulse Rate 87 90 Pulse Rate [ 83 Pulse Oximetery ] Respiratory 16 Rate Blood Pressure 105/60 [Left Arm Supine] O2 Sat by Pulse 94 L 95 Oximetry 02/06/22 02/06/22 02/06/22 11:09 11:19 11:46 Temperature Pulse Rate 84 83 Pulse Rate [ 85 Pulse Oximetery ] Respiratory 16 Rate Blood Pressure 128/58 [Left Arm Supine] O2 Sat by Pulse 96 Oximetry Total time taken greater than 35 minutes including 18 minutes for counseling and coordination of care. Patient Condition at Discharge: Serious Plan - Discharge Summary New Discharge Prescriptions: New Amoxic-Pot Clav 500-125 mg [Augmentin 500-125 mg] 1 each PO Q12H 4 Days #8 tab Tamsulosin [Flomax] 0.4 mg PO PC-BRKFST #30 cap Continue Metoprolol Tartrate [Lopressor] 50 mg PO BID tab Methadone [Dolophine] 2.5 mg PO Q12H #6 tab Psyllium Husk 100% [Metamucil Packet] 6 gm PO DAILY packet Sennosides [Senokot] 8.6 mg PO DAILY PRN tab PRN Reason: Constipation oxyCODONE-APAP 7.5-325MG [Percocet 7.5-325 mg] 1 tab PO Q6HR PRN #12 tab PRN Reason: Pain Gabapentin [Neurontin] 300 mg PO TID@0600,1400,2200 Cyclobenzaprine [Flexeril] 10 mg PO TID@0600,1400,2200 Pantoprazole [Protonix] 40 mg PO DAILY@0600 Dexamethasone [Decadron] See Taper PO DIRECTED Ipratropium-Albuterol Nebulize [Duoneb 0.5 mg-3 mg/3 ml Soln] 3 ml INHALATION RT-Q8H Discontinued Potassium Chloride [Potassium Chloride ER] 8 meq PO DAILY Furosemide [Lasix] 20 mg PO DAILY Sulfamethox-Tmp 800-160Mg [Bactrim DS 800-160 mg] 1 tab PO Q12HR 5 Days #10 tab Discharge Medication List Methadone [Dolophine] 2.5 mg PO Q12H #6 tab 01/30/22 [Rx] Metoprolol Tartrate [Lopressor] 50 mg PO BID tab 01/30/22 [Rx] Psyllium Husk 100% [Metamucil Packet] 6 gm PO DAILY packet 01/30/22 [Rx] Sennosides [Senokot] 8.6 mg PO DAILY PRN tab 01/30/22 [Rx] oxyCODONE-APAP 7.5-325MG [Percocet 7.5-325 mg] 1 tab PO Q6HR PRN #12 tab 0 01/30/22 [Rx] Cyclobenzaprine [Flexeril] 10 mg PO TID@0600,1400,2200 02/03/22 [History] Dexamethasone [Decadron] See Taper PO DIRECTED 02/03/22 [History] Gabapentin [Neurontin] 300 mg PO TID@0600,1400,2200 02/03/22 [History] Ipratropium-Albuterol Nebulize [Duoneb 0.5 mg-3 mg/3 ml Soln] 3 ml INHALATION RT-Q8H 02/03/22 [History] Pantoprazole [Protonix] 40 mg PO DAILY@0600 02/03/22 [History] Amoxic-Pot Clav 500-125 mg [Augmentin 500-125 mg] 1 each PO Q12H 4 Days #8 tab 02/06/22 [Rx] Tamsulosin [Flomax] 0.4 mg PO PC-BRKFST #30 cap 02/06/22 [Rx] Follow up Appointment(s)/Referral(s): Iron Moreno MD [Primary Care Provider] - 1-2 days Brednan Moreno DO [Doctor of Osteopathic Medicine] - 1 Week Discharge Disposition: TRANSFER TO SNF/ECF
[2022-02-06 18:12] VITALS: BP 123/58
[2022-02-06 19:54] VITALS: PULSE 84
== END 2022-02-06 20:10 | DRG 871 ==
LOC: EC 23:05 → 3SCARD 02-03 02:15
PROVIDERS: ADMIT Hospitalist; ATTEND Hospitalist
DX: A41.9 Sepsis, unspecified organism (principal); J18.9 Pneumonia, unspecified organism; C34.90 Malignant neoplasm of unspecified part of unspecified bronchus or lung; C79.51 Secondary malignant neoplasm of bone; E87.1 Hypo-osmolality and hyponatremia; G95.20 Unspecified cord compression; N13.6 Pyonephrosis; N17.9 Acute kidney failure, unspecified; C78.00 Secondary malignant neoplasm of unspecified lung; E87.5 Hyperkalemia; R33.9 Retention of urine, unspecified; E87.70 Fluid overload, unspecified; G89.29 Other chronic pain; I10 Essential (primary) hypertension; J45.909 Unspecified asthma, uncomplicated; R33.8 Other retention of urine; T36.8X5A Adverse effect of other systemic antibiotics, initial encounter; Z79.899 Other long term (current) drug therapy; Z87.891 Personal history of nicotine dependence; Z98.890 Other specified postprocedural states; Z88.1 Allergy status to other antibiotic agents; Z87.19 Personal history of other diseases of the digestive system
CPT/HCPCS: 36415; 71045; 74176; 80048; 80053; 81001; 83735; 84100; 85025; 85610; 85730; 86738; 86850; 86900; 86901; 87040; 87449; 93005; 94640; 94760; 96361; 96374; 96375; 99291

== ENCOUNTER 2022-03-11 09:04 | Emergency (ER) | payer MEDICARE ==
[2022-03-11 09:15] VITALS: RESP 18; TEMP 97.8
--- NOTE | 2022-03-11 09:30 | ED ---
General Adult HPI - General Chief complaint: Urogenital Stated complaint: UTI Time Seen by Provider: 03/11/22 09:04 Source: patient, EMS, RN notes reviewed, old records reviewed Mode of arrival: EMS Limitations: no limitations - History of Present Illness Initial comments: This is a 71-year-old male who resides in a long-term for rehabilitation secondary to a back surgery approximately one month ago. Patient states he has been getting catheterize daily for urine and today they noted that his urine looked cloudy and his blood pressure was a little bit low as was his pulse ox only symptom to the emergency department. Patient denies any shortness of breath difficulty breathing or cough. Patient denies any chest pain patient denies any fever chills. Patient is alert and oriented 4. Patient denies abdominal pain patient denies any back pain patient states since the surgeries back felt considerably better. Patient himself has no complaints. EMS stated that his blood pressure was normal in route over his pulse ox was about 90% - Related Data Home Medications Medication Instructions Recorded Confirmed Cyclobenzaprine [Flexeril] 10 mg PO TID@0600,1400,2200 02/03/22 02/03/22 Ipratropium-Albuterol Nebulize 3 ml INHALATION RT-Q8H 02/03/22 02/03/22 [Duoneb 0.5 mg-3 mg/3 ml Soln] Pantoprazole [Protonix] 40 mg PO DAILY@0600 02/03/22 02/03/22 dexAMETHasone [Decadron] See Taper PO DIRECTED 02/03/22 02/03/22 Previous Rx's Medication Instructions Recorded Metoprolol Tartrate [Lopressor] 50 mg PO BID tab 01/30/22 Psyllium Husk 100% [Metamucil 6 gm PO DAILY packet 01/30/22 Packet] Sennosides [Senokot] 8.6 mg PO DAILY PRN tab 01/30/22 Amoxic-Pot Clav 500-125 mg 1 each PO Q12H 4 Days #8 tab 02/06/22 [Augmentin 500-125 mg] Gabapentin [Neurontin] 300 mg PO TID@0600,1400,2200 3 02/06/22 Days #9 cap Methadone [Dolophine] 2.5 mg PO Q12H 3 Days #6 tab 02/06/22 Tamsulosin [Flomax] 0.4 mg PO PC-BRKFST #30 cap 02/06/22 oxyCODONE-APAP 7.5-325MG [Percocet 1 tab PO Q6HR PRN 3 Days #12 tab 02/06/22 7.5-325 mg] Sulfamethox-Tmp 800-160Mg [Bactrim 1 each PO Q12HR #20 tab 03/11/22 DS 800-160 mg] Allergies Allergy/AdvReac Type Severity Reaction Status Date / Time cephalexin monohydrate Allergy Itching Verified 02/03/22 12:16 [From Keflex] Review of Systems ROS Statement: Those systems with pertinent positive or pertinent negative responses have been documented in the HPI. ROS Other: All systems not noted in ROS Statement are negative. Past Medical History Additional Past Medical History / Comment(s): Patient previously had perforated sigmoid diverticulitis and had to establish colostomy which was reversed in August and has done well, back pain compression fx History of Any Multi-Drug Resistant Organisms: None Reported Past Surgical History: Appendectomy, Bowel Resection Additional Past Surgical History / Comment(s): colostomy reversed 11/19/13 Past Psychological History: No Psychological Hx Reported Smoking Status: Former smoker Past Alcohol Use History: Occasional Past Drug Use History: Marijuana General Exam - General Exam Comments Initial Comments: GENERAL: Patient is well-developed and well-nourished. Patient is nontoxic and well- hydrated and is in no acute distress. ENT: Neck is soft and supple. No significant lymphadenopathy is noted. Oropharynx is clear. Moist mucous membranes. Neck has full range of motion without eliciting any pain. EYES: The sclera were anicteric and conjunctiva were pink and moist. Extraocular movements were intact and pupils were equal round and reactive to light. Ey elids were unremarkable. PULMONARY: Unlabored respirations. Good breath sounds bilaterally. No audible rales rhonchi or wheezing was noted. CARDIOVASCULAR: There is a regular rate and rhythm without any murmurs gallops or rubs. ABDOMEN: Soft and nontender with normal bowel sounds. SKIN: Skin is clear with no lesions or rashes and otherwise unremarkable. NEUROLOGIC: Patient is alert and oriented x3. Cranial nerves II through XII are grossly intact. Motor and sensory are also intact. Normal speech, volume and content. Symmetrical smile. MUSCULOSKELETAL: Normal extremities with adequate strength and full range of motion. LYMPHATICS: No significant lymphadenopathy is noted PSYCHIATRIC: Normal psychiatric evaluation. Limitations: no limitations Course Vital Signs 03/11/22 03/11/22 09:07 10:17 Temperature 97.8 F Pulse Rate 96 97 Respiratory 18 18 Rate Blood Pressure 105/61 140/50 O2 Sat by Pulse 94 L 95 Oximetry Medical Decision Making - Medical Decision Making EKG shows sinus rhythm at 97 bpm MS interval 103 QRS 77 QT interval 347 QTC is 411. Patient's EKG shows no ST segment elevation or depression. Patient's x-ray shows some atelectasis in the right base much improved over the previous x-ray. Patient denies any difficulty breathing. Patient is able to oxygenate 93-94% on room air. Patient was given Bactrim in the emergency department. - Lab Data Result diagrams: 03/11/22 09:30 03/11/22 09:30 Lab Results 03/11/22 03/11/22 03/11/22 Range/Units 09:30 09:30 09:30 WBC 8.3 (3.8-10.6) k/uL RBC 4.67 (4.30-5.90) m/uL Hgb 12.3 L (13.0-17.5) gm/dL Hct 39.7 (39.0-53.0) % MCV 85.0 (80.0-100.0) fL MCH 26.3 (25.0-35.0) pg MCHC 30.9 L (31.0-37.0) g/dL RDW 17.1 H (11.5-15.5) % Plt Count 239 (150-450) k/uL MPV 8.1 Neutrophils % 73 % Lymphocytes % 16 % Monocytes % 6 % Eosinophils % 3 % Basophils % 1 % Neutrophils # 6.0 (1.3-7.7) k/uL Lymphocytes # 1.4 (1.0-4.8) k/uL Monocytes # 0.5 (0-1.0) k/uL Eosinophils # 0.3 (0-0.7) k/uL Basophils # 0.1 (0-0.2) k/uL Hypochromasia Slight Anisocytosis Slight PT 11.6 (9.0-12.0) sec INR 1.1 (<1.2) APTT 19.6 L (22.0-30.0) sec Sodium 136 L (137-145) mmol/L Potassium 4.0 (3.5-5.1) mmol/L Chloride 100 (98-107) mmol/L Carbon Dioxide 32 H (22-30) mmol/L Anion Gap 4 mmol/L BUN 16 (9-20) mg/dL Creatinine 0.91 (0.66-1.25) mg/dL Est GFR (CKD-EPI)AfAm >90 (>60 ml/min/1.73 sqM) Est GFR (CKD-EPI)NonAf 85 (>60 ml/min/1.73 sqM) Glucose 75 (74-99) mg/dL Plasma Lactic Acid Jj (0.7-2.0) mmol/L Calcium 8.6 (8.4-10.2) mg/dL Total Bilirubin 0.5 (0.2-1.3) mg/dL AST 21 (17-59) U/L ALT 11 (4-49) U/L Alkaline Phosphatase 103 (38-126) U/L Troponin I (0.000-0.034) ng/mL Total Protein 6.7 (6.3-8.2) g/dL Albumin 3.0 L (3.5-5.0) g/dL Urine Color Urine Appearance (Clear) Urine pH (5.0-8.0) Ur Specific [place] (1.001-1.035) Urine Protein (Negative) Urine Glucose (UA) (Negative) Urine Ketones (Negative) Urine Blood (Negative) Urine Nitrite (Negative) Urine Bilirubin (Negative) Urine Urobilinogen (<2.0) mg/dL Ur Leukocyte Esterase (Negative) Urine RBC (0-5) /hpf Urine WBC (0-5) /hpf Urine WBC Clumps (None) /hpf Urine Bacteria (None) /hpf Urine Mucus (None) /hpf 03/11/22 03/11/22 03/11/22 Range/Units 09:30 09:30 09:30 WBC (3.8-10.6) k/uL RBC (4.30-5.90) m/uL Hgb (13.0-17.5) gm/dL Hct (39.0-53.0) % MCV (80.0-100.0) fL MCH (25.0-35.0) pg MCHC (31.0-37.0) g/dL RDW (11.5-15.5) % Plt Count (150-450) k/uL MPV Neutrophils % % Lymphocytes % % Monocytes % % Eosinophils % % Basophils % % Neutrophils # (1.3-7.7) k/uL Lymphocytes # (1.0-4.8) k/uL Monocytes # (0-1.0) k/uL Eosinophils # (0-0.7) k/uL Basophils # (0-0.2) k/uL Hypochromasia Anisocytosis PT (9.0-12.0) sec INR (<1.2) APTT (22.0-30.0) sec Sodium (137-145) mmol/L Potassium (3.5-5.1) mmol/L Chloride (98-107) mmol/L Carbon Dioxide (22-30) mmol/L Anion Gap mmol/L BUN (9-20) mg/dL Creatinine (0.66-1.25) mg/dL Est GFR (CKD-EPI)AfAm (>60 ml/min/1.73 sqM) Est GFR (CKD-EPI)NonAf (>60 ml/min/1.73 sqM) Glucose (74-99) mg/dL Plasma Lactic Acid Jj 1.2 (0.7-2.0) mmol/L Calcium (8.4-10.2) mg/dL Total Bilirubin (0.2-1.3) mg/dL AST (17-59) U/L ALT (4-49) U/L Alkaline Phosphatase (38-126) U/L Troponin I 0.031 (0.000-0.034) ng/mL Total Protein (6.3-8.2) g/dL Albumin (3.5-5.0) g/dL Urine Color Yellow Urine Appearance Turbid (Clear) Urine pH 6.0 (5.0-8.0) Ur Specific [place] 1.015 (1.001-1.035) Urine Protein 2+ H (Negative) Urine Glucose (UA) Negative (Negative) Urine Ketones Negative (Negative) Urine Blood Large H (Negative) Urine Nitrite Positive (Negative) Urine Bilirubin Negative (Negative) Urine Urobilinogen <2.0 (<2.0) mg/dL Ur Leukocyte Esterase Large H (Negative) Urine RBC 81 H (0-5) /hpf Urine WBC >182 H (0-5) /hpf Urine WBC Clumps Many H (None) /hpf Urine Bacteria Many H (None) /hpf Urine Mucus Many H (None) /hpf Disposition Clinical Impression: Urinary tract infection Disposition: HOME SELF-CARE Instructions (If sedation given, give patient instructions): Urinary Tract Infection in Men (ED) Additional Instructions: Patient should be catheterized in a sterile manner. Prescriptions: Sulfamethox-Tmp 800-160Mg [Bactrim DS 800-160 mg] 1 each PO Q12HR #20 tab Is patient prescribed a controlled substance at d/c from ED?: No Referrals: Iron Moreno MD [Primary Care Provider] - 1-2 days Time of Disposition: 12:12
[2022-03-11] MEDS: SODIUM CHLORIDE 0.9% 500 ML 500 ML IV SCH ×2 (09:45→09:56)
[2022-03-11 09:58] LABS: ALT 11 U/L (4-49); AST 21 U/L (17-59); African American GFR (CKD) >90 (>60 ml/min/1.73 sqM); Alkaline Phosphatase 103 U/L (38-126); Anion Gap 4 mmol/L; Blood Urea Nitrogen 16 mg/dL (9-20); Calcium 8.6 mg/dL (8.4-10.2); Carbon Dioxide 32 mmol/L (22-30); Chloride 100 mmol/L (98-107); Glucose 75 mg/dL (74-99); Non-African American GFR(CKD) 85 (>60 ml/min/1.73 sqM); Sodium 136 mmol/L (137-145); Total Bilirubin 0.5 mg/dL (0.2-1.3); Total Protein 6.7 g/dL (6.3-8.2)
--- NOTE | 2022-03-11 09:59 | XR ---
EXAMINATION TYPE: XR chest 2V DATE OF EXAM: 03/11/2022 COMPARISON: 02/03/2022 HISTORY: Shortness of breath TECHNIQUE: Frontal and lateral views of the chest are obtained. FINDINGS: Scattered senescent parenchymal changes noted. Hyperinflation compatible with COPD. Persistent but much improved density right lower lobe which may reflect residual infiltrate and/or at electasis. Heart size is stable. Mediastinal structures are stable and grossly unremarkable. No evidence for hilar prominence. Degenerative changes dorsal spine. Postoperative changes thoracolumbar spine. IMPRESSION: 1. Persistent but much improved density right lower lobe which may reflect residual infiltrate and/or atelectasis.
[2022-03-11 10:08] LABS: INR 1.1 (<1.2); Prothrombin Time 11.6 sec (9.0-12.0)
[2022-03-11 10:10] LABS: Anisocytosis Slight; Appearance,Urine Turbid (Clear); Bacteria,Urine Many /hpf; Basophils # (A) 0.1 k/uL (0-0.2); Basophils % (A) 1 %; Bilirubin,Urine Negative (Negative); Blood,Urine Large (Negative); Color,Urine Yellow; Eosinophils # (A) 0.3 k/uL (0-0.7); Eosinophils % (A) 3 %; Glucose,Urine (UA) Negative (Negative); HCT 39.7 % (39.0-53.0); HGB 12.3 gm/dL (13.0-17.5); Hypochromasia Slight; Ketones,Urine Negative (Negative); Leukocyte Esterase,Urine Large (Negative); Lymphocytes # (A) 1.4 k/uL (1.0-4.8); Lymphocytes % (A) 16 %; MCH 26.3 pg (25.0-35.0); MCHC 30.9 g/dL (31.0-37.0); Mean Platelet Volume 8.1; Monocytes # (A) 0.5 k/uL (0-1.0); Monocytes % (A) 6 %; Mucus,Urine Many /hpf; Neutrophils % (A) 73 %; Nitrite,Urine Positive (Negative); Platelet Count 239 k/uL (150-450); Protein,Urine 2+ (Negative); RBC 4.67 m/uL (4.30-5.90); RBC,Urine 81 /hpf (0-5); RDW 17.1 % (11.5-15.5); Urobilinogen,Urine <2.0 mg/dL (<2.0); WBC 8.3 k/uL (3.8-10.6); WBC,Urine >182 /hpf (0-5)
[2022-03-11 10:11] LABS: Partial Thromboplastin Time 19.6 sec (22.0-30.0)
[2022-03-11 10:14] LABS: Specific Gravity,Urine 1.015 (1.001-1.035)
[2022-03-11 10:19] VITALS: BP 140/50; PULSE 97
[2022-03-11] MEDS ORDERED: SULFAMETHOX-TMP 800-160MG 1 EACH TAB PO STA (10:19)
== END 2022-03-11 12:55 | disposition home or self-care (01) ==
LOC: EC 09:04
DX: N39.0 Urinary tract infection, site not specified (principal); Z87.891 Personal history of nicotine dependence; Z88.1 Allergy status to other antibiotic agents
CPT/HCPCS: 36415; 71046; 80053; 81001; 83605; 84484; 85025; 85610; 85730; 87040; 87077; 87086; 87186; 93005; 96360; 99284

== ENCOUNTER 2022-03-27 11:44 | Inpatient (IN) | payer MEDICARE ==
[2022-03-27] MEDS ORDERED: ASPIRIN 81 MG PO STA (12:13)
[2022-03-27] MEDS ORDERED: SODIUM CHLORIDE 0.9% 500 ML 500 ML IV STA (12:13)
[2022-03-27] MEDS ORDERED: SODIUM CHLORIDE 0.9% 1,000 ML IV STA (12:13)
[2022-03-27] MEDS ORDERED: HEPARIN SODIUM 1,000 UN/ML (10ML VL) IV ONE (12:13)
[2022-03-27] MEDS ORDERED: DILTIAZEM 125 MG in SODIUM CHLORIDE 0.9% 100 ML IV SCH (12:15)
[2022-03-27] MEDS ORDERED: HEPARIN SOD,PORK IN 0.45% NACL 25,000 UNIT in 0.45% NACL 1 250ML.BAG IV SCH (12:15)
--- NOTE | 2022-03-27 12:17 | ED ---
General Adult HPI - General Chief complaint: Chest Pain Stated complaint: Chest Pain Time Seen by Provider: 03/27/22 12:00 Source: patient, EMS, RN notes reviewed, old records reviewed Mode of arrival: EMS - History of Present Illness Initial comments: This is a 71-year-old male who presents emergency department after having experienced chest pain and lightheadedness. Patient thought he might pass out while he was at the nursing that sentiment on a chair in the chest pain and lightheadedness continued. Patient states that lasted for about 20-30 minutes and then it subsided. Patient noted that his heart felt like it was racing. Patient states she has no history of atrial fibrillation. Patient states she was a smoker until 2012. Patient also has high blood pressure. Patient denies high cholesterol any cardiac disease previously and diabetes. Patient denies any fever chills or cough per patient denies abdominal pain patient denies nausea vomiting diarrhea. Patient states she's not eating or drinking very much while he's been at the correction. Patient denies any headache patient denies any numbness or weakness. - Related Data Home Medications Medication Instructions Recorded Confirmed Cyclobenzaprine [Flexeril] 10 mg PO TID@0600,1400,2200 02/03/22 03/27/22 Ipratropium-Albuterol Nebulize 3 ml INHALATION RT-Q8H 02/03/22 03/27/22 [Duoneb 0.5 mg-3 mg/3 ml Soln] Pantoprazole [Protonix] 40 mg PO DAILY@0600 02/03/22 03/27/22 Lactose-Reduced Food [Ensure Plus] 1 can PO TID@0900,1300,2100 03/27/22 03/27/22 Lactulose 10 gm PO BID 03/27/22 03/27/22 Magnesium Hydroxide [Milk of 2,400 mg PO ONCE@81403/27/22 03/27/22 Magnesia] Na Phos,M-B/Na Phos,Di-Ba [Fleet 133 ml RECTAL ONCE@201403/27/22 03/27/22 Adult] Povidone-Iodine [Betadine] 1 applic TOPICAL 03/27/22 03/27/22 Psyllium Husk 100% [Metamucil 6 gm PO 03/27/22 03/27/22 Packet] Sennosides [Senokot] 8.6 mg PO DAILY 03/27/22 03/27/22 Tamsulosin [Flomax] 0.4 mg PO DAILY 03/27/22 03/27/22 bisacodyL [Dulcolax] 10 mg RECTAL ONCE@1515 03/27/22 03/27/22 Previous Rx's Medication Instructions Recorded Metoprolol Tartrate [Lopressor] 50 mg PO BID tab 01/30/22 Gabapentin [Neurontin] 300 mg PO TID@0600,1400,2200 3 02/06/22 Days #9 cap oxyCODONE-APAP 7.5-325MG [Percocet 1 tab PO Q6HR PRN 3 Days #12 tab 02/06/22 7.5-325 mg] Allergies Allergy/AdvReac Type Severity Reaction Status Date / Time cephalexin monohydrate Allergy Itching Verified 03/27/22 12:45 [From Pylba] Review of Systems ROS Statement: Those systems with pertinent positive or pertinent negative responses have been documented in the HPI. ROS Other: All systems not noted in ROS Statement are negative. Past Medical History Additional Past Medical History / Comment(s): Patient previously had perforated sigmoid diverticulitis and had to establish colostomy which was reversed in August and has done well, back pain compression fx History of Any Multi-Drug Resistant Organisms: None Reported Past Surgical History: Appendectomy, Bowel Resection Additional Past Surgical History / Comment(s): colostomy reversed 11/19/13 Past Psychological History: No Psychological Hx Reported Smoking Status: Former smoker Past Alcohol Use History: Occasional Past Drug Use History: Marijuana General Exam - General Exam Comments Initial Comments: GENERAL: Patient is well-developed and well-nourished. Patient is nontoxic and well- hydrated and is in mild distress. ENT: Neck is soft and supple. No significant lymphadenopathy is noted. Oropharynx is clear. Dry mucous membranes. Neck has full range of motion without eliciting any pain. EYES: The sclera were anicteric and conjunctiva were pink and moist. Extraocular move ments were intact and pupils were equal round and reactive to light. Eyelids were unremarkable. PULMONARY: Unlabored respirations. Good breath sounds bilaterally. No audible rales rhonchi or wheezing was noted. CARDIOVASCULAR: Patient's heart rate is about 150 beats a minute and irregular ABDOMEN: Soft and nontender with normal bowel sounds. SKIN: Skin is clear with no lesions or rashes and otherwise unremarkable. NEUROLOGIC: Patient is alert and oriented x3. Cranial nerves II through XII are grossly intact. Motor and sensory are also intact. Normal speech, volume and content. Symmetrical smile. MUSCULOSKELETAL: Normal extremities with adequate strength and full range of motion. No lower extremity swelling or edema. No calf tenderness. LYMPHATICS: No significant lymphadenopathy is noted PSYCHIATRIC: Normal psychiatric evaluation. Course Vital Signs 03/27/22 03/27/22 03/27/22 11:49 11:57 12:00 Pulse Rate 132 H 112 H 146 H Respiratory 22 20 21 Rate Blood Pressure 95/74 95/74 O2 Sat by Pulse 92 L 96 95 Oximetry 03/27/22 03/27/22 12:20 13:20 Pulse Rate 151 H 142 H Respiratory 23 16 Rate Blood Pressure 108/84 110/63 O2 Sat by Pulse 95 98 Oximetry Medical Decision Making - Medical Decision Making EKG shows atrial fibrillation with rapid ventricular response at 143 bpm QRS is 76 QT interval is 268 QTC is 351. Patient's EKG shows some ST segment depression in precordial leads V2 through V6. And T-wave inversions in 1 and aVL I started the patient on heparin. I started the patient on a Cardizem drip. Patient converted to a sinus rhythm at a repeat EKG was done shows sinus rhythm at 89 bpm DC interval 283 QRS 75 QT interval 354 QTC is 411. Patient's EKG shows no ST segment elevation or depression. - Lab Data Result diagrams: 03/27/22 12:19 03/27/22 12:19 Lab Results 03/27/22 03/27/22 03/27/22 Range/Units 12:19 12:19 12:19 WBC 15.6 H (3.8-10.6) k/uL RBC 4.73 (4.30-5.90) m/uL Hgb 12.5 L (13.0-17.5) gm/dL Hct 39.9 (39.0-53.0) % MCV 84.4 (80.0-100.0) fL MCH 26.5 (25.0-35.0) pg MCHC 31.3 (31.0-37.0) g/dL RDW 16.4 H (11.5-15.5) % Plt Count 343 (150-450) k/uL MPV 8.4 Neutrophils % 83 % Lymphocytes % 8 % Monocytes % 5 % Eosinophils % 2 % Basophils % 0 % Neutrophils # 13.0 H (1.3-7.7) k/uL Lymphocytes # 1.3 (1.0-4.8) k/uL Monocytes # 0.8 (0-1.0) k/uL Eosinophils # 0.4 (0-0.7) k/uL Basophils # 0.1 (0-0.2) k/uL Hypochromasia Slight Anisocytosis Slight PT 11.3 (9.0-12.0) sec INR 1.0 (<1.2) APTT 25.5 (22.0-30.0) sec Sodium 136 L (137-145) mmol/L Potassium 4.6 (3.5-5.1) mmol/L Chloride 104 (98-107) mmol/L Carbon Dioxide 27 (22-30) mmol/L Anion Gap 5 mmol/L BUN 18 (9-20) mg/dL Creatinine 0.95 (0.66-1.25) mg/dL Est GFR (CKD-EPI)AfAm >90 (>60 ml/min/1.73 sqM) Est GFR (CKD-EPI)NonAf 81 (>60 ml/min/1.73 sqM) Glucose 138 H (74-99) mg/dL Calcium 8.9 (8.4-10.2) mg/dL Magnesium 1.9 (1.6-2.3) mg/dL Total Bilirubin 0.5 (0.2-1.3) mg/dL AST 21 (17-59) U/L ALT 16 (4-49) U/L Alkaline Phosphatase 102 (38-126) U/L Troponin I (0.000-0.034) ng/mL Total Protein 7.3 (6.3-8.2) g/dL Albumin 3.0 L (3.5-5.0) g/dL 03/27/22 Range/Units 12:19 WBC (3.8-10.6) k/uL RBC (4.30-5.90) m/uL Hgb (13.0-17.5) gm/dL Hct (39.0-53.0) % MCV (80.0-100.0) fL MCH (25.0-35.0) pg MCHC (31.0-37.0) g/dL RDW (11.5-15.5) % Plt Count (150-450) k/uL MPV Neutrophils % % Lymphocytes % % Monocytes % % Eosinophils % % Basophils % % Neutrophils # (1.3-7.7) k/uL Lymphocytes # (1.0-4.8) k/uL Monocytes # (0-1.0) k/uL Eosinophils # (0-0.7) k/uL Basophils # (0-0.2) k/uL Hypochromasia Anisocytosis PT (9.0-12.0) sec INR (<1.2) APTT (22.0-30.0) sec Sodium (137-145) mmol/L Potassium (3.5-5.1) mmol/L Chloride (98-107) mmol/L Carbon Dioxide (22-30) mmol/L Anion Gap mmol/L BUN (9-20) mg/dL Creatinine (0.66-1.25) mg/dL Est GFR (CKD-EPI)AfAm (>60 ml/min/1.73 sqM) Est GFR (CKD-EPI)NonAf (>60 ml/min/1.73 sqM) Glucose (74-99) mg/dL Calcium (8.4-10.2) mg/dL Magnesium (1.6-2.3) mg/dL Total Bilirubin (0.2-1.3) mg/dL AST (17-59) U/L ALT (4-49) U/L Alkaline Phosphatase (38-126) U/L Troponin I <0.012 (0.000-0.034) ng/mL Total Protein (6.3-8.2) g/dL Albumin (3.5-5.0) g/dL Critical Care Time Critical Care Time: Yes Total Critical Care Time: 35 Disposition Clinical Impression: Atrial fibrillation with RVR, Chest pain, Pneumonia Disposition: ADMITTED IP TO THIS [facility] Time of Disposition: 13:48
[2022-03-27 12:49] LABS: Anisocytosis Slight; Basophils # (A) 0.1 k/uL (0-0.2); Basophils % (A) 0 %; Eosinophils # (A) 0.4 k/uL (0-0.7); Eosinophils % (A) 2 %; HCT 39.9 % (39.0-53.0); HGB 12.5 gm/dL (13.0-17.5); Hypochromasia Slight; Lymphocytes # (A) 1.3 k/uL (1.0-4.8); Lymphocytes % (A) 8 %; MCH 26.5 pg (25.0-35.0); MCHC 31.3 g/dL (31.0-37.0); MCV 84.4 fL (80.0-100.0); Mean Platelet Volume 8.4; Monocytes # (A) 0.8 k/uL (0-1.0); Monocytes % (A) 5 %; Neutrophils % (A) 83 %; Platelet Count 343 k/uL (150-450); RBC 4.73 m/uL (4.30-5.90); RDW 16.4 % (11.5-15.5); WBC 15.6 k/uL (3.8-10.6)
[2022-03-27 13:02] LABS: Partial Thromboplastin Time 25.5 sec (22.0-30.0); Prothrombin Time 11.3 sec (9.0-12.0)
--- NOTE | 2022-03-27 13:03 | XR ---
EXAMINATION TYPE: XR chest 2V DATE OF EXAM: 03/27/2022 COMPARISON: Chest x-ray 03/11/2022 HISTORY: Chest pain TECHNIQUE: Frontal and lateral views of the chest are obtained. FINDINGS: There is been interval progression of abnormal increased attenuation at the right lung bas e. No evident pneumothorax. There are overlying artifacts. Postop changes are again noted to the spin e. Cardiac mediastinal silhouette is stable. There is some blunting of the costophrenic angle on the right. IMPRESSION: Correlate for pneumonia versus atelectasis, difficult to exclude effusion. Prominence of the cardiac silhouette is at least in part due to epicardial fat pads.
[2022-03-27 13:16] LABS: ALT 16 U/L (4-49); AST 21 U/L (17-59); African American GFR (CKD) >90 (>60 ml/min/1.73 sqM); Alkaline Phosphatase 102 U/L (38-126); Anion Gap 5 mmol/L; Blood Urea Nitrogen 18 mg/dL (9-20); Calcium 8.9 mg/dL (8.4-10.2); Carbon Dioxide 27 mmol/L (22-30); Chloride 104 mmol/L (98-107); Glucose 138 mg/dL (74-99); Magnesium 1.9 mg/dL (1.6-2.3); Non-African American GFR(CKD) 81 (>60 ml/min/1.73 sqM); Potassium 4.6 mmol/L (3.5-5.1); Sodium 136 mmol/L (137-145); Total Bilirubin 0.5 mg/dL (0.2-1.3); Total Protein 7.3 g/dL (6.3-8.2)
[2022-03-27] MEDS ORDERED: LEVOFLOXACIN 750MG-D5W PMX 750 MG in DEXTROSE/WATER 1 150ML.BAG IVPB STA (13:50)
[2022-03-27] MEDS ORDERED: LEVOFLOXACIN 750MG-D5W PMX 750 MG in DEXTROSE/WATER 1 150ML.BAG IVPB SCH (14:00)
[2022-03-27] MEDS ORDERED: NITROGLYCERIN SL TABS 0.4 MG TAB SUBLINGUAL PRN (14:07)
[2022-03-27] MEDS ORDERED: oxyCODONE-APAP 7.5-325MG 1 EACH TAB PO PRN (15:14)
[2022-03-27] MEDS ORDERED: IPRATROPIUM-ALBUTEROL 3 ML NEB INHALATION PRN (15:14)
[2022-03-27] MEDS: MAGNESIUM HYDROXIDE 2,400 MG/10 ML CUP PO SCH (16:36)
[2022-03-27] MEDS: bisacodyL 10 MG SUPP RECTAL SCH (16:36)
[2022-03-27] MEDS ORDERED: DEXTROSE 50% SYRINGE 50 ML IVP PRN ×2 (18:23)
--- NOTE | 2022-03-27 19:41 | CT ---
EXAMINATION TYPE: CT angio chest DATE OF EXAM: 03/27/2022 COMPARISON: PET/CT scan 01/08/2022 HISTORY: elevated d-dimer CT DLP: 818.2 mGycm Automated exposure control for dose reduction was used. CONTRAST: Performed with IV Contrast, patient injected with 100 mL of Isovue 370. Images obtained from the thoracic inlet to the diaphragm with IV contrast. There are Three-D postproc essed images. There is mild to moderate right pleural effusion. There is right lower lobe infiltrate and atelectasi s. There is some consolidation in the right middle lobe adjacent to the major fissure. There is no me diastinal adenopathy. There are no hilar masses. There is normal contrast opacification of the pulmon [place] arteries. No filling defect. Heart size is normal. No pericardial effusion. There is posterior fu mariah surgery in the lower thoracic spine. There are spondylotic changes in the lumbar spine. There is multilevel anterior bridging osteophyte formation. There is multilevel thoracic vertebroplasty. Ther e are some destructive changes involving sternum. This area measures 4 cm in length. There is some pa tchy sclerosis. IMPRESSION: Right-sided pulmonary infiltrates and consolidation as above. Right pleural effusion. No evidence of pulmonary embolism. Lung abnormality is significantly increased compared to the PET/CT scan of 2. Destructive changes in the sternum also present on previous CT scan and appear more extensive on toabel y's exam.
[2022-03-27 20:23] LABS: Glucose,Whole Blood 135 mg/dL (70-110)
[2022-03-27] MEDS: IPRATROPIUM-ALBUTEROL 3 ML NEB INHALATION SCH (20:33)
[2022-03-27] MEDS: INSULIN ASPART (NovoLOG) 100 UNIT/ML VIAL SQ SCH (20:46)
[2022-03-27] MEDS: METOPROLOL TARTRATE 50 MG TAB PO SCH (20:52)
[2022-03-27] MEDS: CYCLOBENZAPRINE 10 MG TAB PO SCH (20:52)
[2022-03-27] MEDS: GABAPENTIN 300 MG CAP PO SCH (20:52)
[2022-03-27] MEDS: NA PHOS,M-B/NA PHOS,DI-BA 133 ML ENEMA RECTAL SCH (20:53)
[2022-03-27] MEDS: PSYLLIUM HUSK 100% 6 GM PACKET PO SCH (20:53)
[2022-03-27] MEDS: LACTULOSE 20 GM/30 ML CUP PO SCH (20:54)
[2022-03-27] MEDS ORDERED: NON FORMULARY DRUG (Lactose-Reduced Food [Ensure Plus] 237 ML Ml) PO SCH (21:00)
[2022-03-27] MEDS ORDERED: POVIDONE IODINE TOPICAL SCH (21:00)
[2022-03-27] MEDS ORDERED: HEPARIN SODIUM 1,000 UN/ML (10ML VL) IV PRN ×2 (22:48→23:14)
[2022-03-27] MEDS: methylPREDNISolone SOD SUCCI 125 MG/2 ML VIAL IV SCH (23:19)
--- NOTE | 2022-03-27 23:55 | HP ---
HISTORY AND PHYSICAL CHIEF COMPLAINTS: Multiple including chest pain and shortness of breath. HISTORY OF PRESENT ILLNESS: This is a 71-year-old gentleman with a past medical history of multiple medical problems including pneumonia, being followed by Dr. Moreno in the outpatient setting, was complaining of central and right-sided chest pain and shortness of breath. The patient is also found to have atrial fibrillation with fast ventricular rate. The patient is started on Cardizem and heparin. He is also found to have pneumonia. The patient is admitted for further evaluation and treatment. The patient also had some lightheadedness prior to admission. The initial labs showed white count of 15.6. The chest x-ray which was personally reviewed by me showed pneumonia, mainly on the right side, and the patient is being admitted for further evaluation and treatment. There is no history of any fever, rigors, or chills at this time. PAST MEDICAL HISTORY: History of pneumonia, history of sigmoid diverticulitis, and multiple medical issues. HOME MEDICATIONS: Reviewed and include DuoNeb. The rest of the medications and doses are reviewed. ALLERGIES: Include cephalexin. FAMILY HISTORY: No history of heart disease or strokes in the family. SOCIAL HISTORY: Previous history of smoking. Occasional alcohol intake. REVIEW OF SYSTEMS: Fourteen-point review is negative except as mentioned earlier. PHYSICAL EXAMINATION: VITAL SIGNS: Pulse is 146 and irregular, blood pressure is 95/74, and respirations are 21. HEENT: Conjunctivae normal. RESPIRATORY: scattered rhonchi and crackles. Breath sounds are markedly diminished on the right base. ABDOMEN: Soft and nontender. LEGS: Minimal bilateral leg edema. NERVOUS SYSTEM: Higher functions as mentioned earlier. Moves all 4 limbs. No focal deficit. SKIN: No ulcer, rash, or bleeding. JOINTS: No active deforming arthropathy. LYMPHATICS: No lymph node palpable in neck, axillae, or groin. LABORATORY DATA: WBC is 10.3, hemoglobin is 12.4. Sodium 135. ASSESSMENT: 1. Atrial fibrillation with fast ventricular rate. 2. Right lower lobe pneumonia, possibly gram-negative, present on admission. 3. Increased WBC. 4. History of pneumonia. 5. Chronic obstructive pulmonary disease. 6. Multiple medical issues. RECOMMENDATIONS: This is a 71-year-old gentleman presented with multiple complex medical issues. We will monitor the patient closely. I would recommend intensive bronchodilator treatment and empiric antibiotics. I also recommended D-dimer, and if it is positive, I would recommend a CT angio of the chest also. COVID-19 also will be ordered. See orders for further details. Overall prognosis is extremely guarded because of multiple complex medical issues. Further recommendations to follow. WALT / IJN: [id number] / MTDD
[2022-03-28 06:05] LABS: Glucose,Whole Blood 143 mg/dL (70-110)
[2022-03-28] MEDS: GABAPENTIN 300 MG CAP PO SCH ×3 (06:27→20:59)
[2022-03-28] MEDS: INSULIN ASPART (NovoLOG) 100 UNIT/ML VIAL SQ SCH ×3 (06:27→17:58)
[2022-03-28] MEDS: PANTOPRAZOLE 40 MG TABLET PO SCH (06:27)
[2022-03-28] MEDS: CYCLOBENZAPRINE 10 MG TAB PO SCH ×3 (06:27→20:58)
[2022-03-28] MEDS: methylPREDNISolone SOD SUCCI 125 MG/2 ML VIAL IV SCH ×2 (06:27→12:25)
[2022-03-28 08:07] LABS: Anisocytosis Slight; Basophils % (A) 0 %; Eosinophils % (A) 0 %; HCT 37.3 % (39.0-53.0); HGB 11.1 gm/dL (13.0-17.5); Hypochromasia Marked; Lymphocytes # (A) 0.8 k/uL (1.0-4.8); Lymphocytes % (A) 7 %; MCH 25.7 pg (25.0-35.0); MCHC 29.7 g/dL (31.0-37.0); MCV 86.5 fL (80.0-100.0); Monocytes # (A) 0.2 k/uL (0-1.0); Monocytes % (A) 1 %; Neutrophils # (A) 10.8 k/uL (1.3-7.7); Neutrophils % (A) 91 %; Platelet Count 351 k/uL (150-450); RBC 4.31 m/uL (4.30-5.90); RDW 16.1 % (11.5-15.5); WBC 11.8 k/uL (3.8-10.6)
[2022-03-28 08:21] LABS: ALT 16 U/L (4-49); AST 26 U/L (17-59); African American GFR (CKD) >90 (>60 ml/min/1.73 sqM); Albumin 2.9 g/dL (3.5-5.0); Alkaline Phosphatase 99 U/L (38-126); Anion Gap 7 mmol/L; Blood Urea Nitrogen 19 mg/dL (9-20); Calcium 8.6 mg/dL (8.4-10.2); Carbon Dioxide 22 mmol/L (22-30); Chloride 108 mmol/L (98-107); Glucose 150 mg/dL (74-99); Non-African American GFR(CKD) 89 (>60 ml/min/1.73 sqM); Potassium 4.9 mmol/L (3.5-5.1); Sodium 137 mmol/L (137-145); Total Bilirubin 0.3 mg/dL (0.2-1.3); Total Protein 7.2 g/dL (6.3-8.2)
[2022-03-28] MEDS: IPRATROPIUM-ALBUTEROL 3 ML NEB INHALATION SCH ×3 (08:42→19:54)
[2022-03-28] MEDS ORDERED: ASPIRIN 325 MG TAB PO SCH (09:00)
--- NOTE | 2022-03-28 09:11 | CA ---
Transthoracic Echo Report Name: Yamil López Age: 71 Gender: M : 1950 Exam Date: 03/28/2022 07:45 Exam Location: [place] [facility] Ht (in): 71 Wt (lb): 230 Ordering Physician: Helen Vera MD Attending/Referring Phys: Transport Analyst Daniella Barclay RDCS Procedure CPT: Indications: nos afib Cardiac Hx: No cardiac hx Technical Quality: Fair Contrast 1: Total Dose (mL): Contrast 2: Total Dose (mL): MEASUREMENTS (Male / Female) Normal Values 2D ECHO LV Diastolic Diameter PLAX 3.6 cm 4.2 - 5.9 / 3.9 - 5.3 cm LV Systolic Diameter PLAX 2.3 cm IVS Diastolic Thickness 1.0 cm 0.6 - 1.0 / 0.6 - 0.9 cm LVPW Diastolic Thickness 1.2 cm 0.6 - 1.0 / 0.6 - 0.9 cm LV Relative Wall Thickness 0.6 RV Internal Dim ED PLAX 2.8 cm FINDINGS Left Ventricle Normal Left ventricular size, wall thickness, systolic function with no obvious regional wall motion abnormalities. Normal Left ventricular diastolic filling pattern. Left ventricular ejection fraction is estimated at 55-60 %. Left ventricle not well visualized. Right Ventricle Right Atrium Left Atrium Mitral Valve Aortic Valve Tricuspid Valve Pulmonic Valve Pericardium No pericardial effusion. Aorta CONCLUSIONS Normal LV systolic function No pericardial effusion Previewed by: Dr. Cj Hernandez MD (Electronically Signed) Final Date: 28 March 2022 09:10
[2022-03-28] MEDS: SENNOSIDES 8.6 MG TAB PO SCH (09:17)
[2022-03-28] MEDS: APIXABAN 5 MG TAB PO SCH ×2 (09:17→20:58)
[2022-03-28] MEDS: METOPROLOL TARTRATE 50 MG TAB PO SCH ×2 (09:17→20:59)
[2022-03-28] MEDS: TAMSULOSIN 0.4 MG CAP.ER.24H PO SCH (09:17)
[2022-03-28] MEDS: MAGNESIUM HYDROXIDE 2,400 MG/10 ML CUP PO SCH (09:17)
[2022-03-28] MEDS: LACTULOSE 20 GM/30 ML CUP PO SCH ×3 (09:18→20:51)
--- NOTE | 2022-03-28 10:33 | P.CRDCN ---
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 We have been asked to see in consultation for atrial fibrillation with rapid ventricular response. Patient presents to the emergency department with complaints of chest discomfort, lightheadedness, and felt as if he might pass out. He also felt his heart racing. He chest discomfort was midsternal, non-radiating, non-exertional. He denied any shortness of breath, nausea, vomiting, diaphoresis. He denies any history of CAD, CT, stroke, diabetes, atrial fibrillation, heart failure. On admission patient found to be in atrial fibrillation with rapid ventricular response, he was started on IV heparin and IV Cardizem drip. Patient converted to sinus mechanism. Patient also found to have pneumonia. DIAGNOSTICS * EKG on admission revealed H fibrillation with rapid ventricular response, heart rate 143, nonspecific STT wave abnormalities. * Echocardiogram revealed an EF 5560 percent, no pericardial effusion. * Repeat EKG revealed sinus rhythm, heart rate 89, nonspecific sT- T-wave abnormalities. * Telemetry tracings indicate patient is maintaining sinus mechanism heart rate 80s90s * Chest CTA- no evidence of pulmonary embolism, right-sided pulmonary infiltrates and consolidation reported. Long abnormalities significantly increased compared to pet/computed tomography scan and 01/08/2022 * Laboratory reviewed, troponin negative 3, WBC 11.8, hemoglobin 11.1, platelets 351, sodium 137, potassium 4.9, BUN 19, serum gram 0.8 * Current home cardiac medications include metoprolol tartrate 50 mg twice a day REVIEW OF SYSTEMS At the time of my exam: CONSTITUTIONAL: Denies fever or chills. CARDIOVASCULAR: Denies chest pain, shortness of breath, orthopnea, PND or palpitations. RESPIRATORY: Denies cough. GASTROINTESTINAL: Denies abdominal pain, diarrhea, constipation, nausea or vomiting. MUSCULOSKELETAL: Denies myalgias. NEUROLOGIC: Denies numbness, tingling, headacbe or weakness. ENDOCRINE: Denies fatigue, weight change, polydipsia or polyurina. GENITOURINARY: Denies burning, hematuria or urgency with micturation. HEMATOLOGIC: Denies history of anemia or bleeding. PHYSICAL EXAMINATION Vitals 126/80, heart rate 93, afebrile, oxygen saturation is 94% on 2 L nasal cannula CONSTITUTIONAL: No apparent distress. HEENT: Head is normocephalic. Pupils are equal, round. Sclerae anicteric. Mucous membranes of the mouth are moist. No JVD. No carotid bruit. CHEST EXAMINATION: Lungs are diminished bilaterally to auscultation. No chest wall tenderness is noted on palpation or with deep breathing. HEART EXAMINATION: Regular rate and rhythm. S1, S2 heard. No murmurs, gallops or rub. ABDOMEN: Soft, nontender. Positive bowel sounds. EXTREMITIES: 2+ peripheral pulses, no lower extremity edema and no calf tenderness. SKIN: warm, dry NEUROLOGIC EXAMINATION: Patient is awake, alert and oriented x3. ASSESSMENT New onset paroxysmal atrial fibrillation [id number] score 2 Pneumonia Lung cancer with metastasis to the spine History of Hypertension Former smoker History of perforated sigmoid diverticulitis status post colostomy and reversal PLAN Stop IV heparin, Transition to Eliquis 5mg BID Case management consultation for assistance in cost Continue Metoprolol tartrate Echocardiogram with EF 55-60% From a cardiology perspective, patient is stable, maintaining sinus mechanism, ok to discharge when cleared by medicine and other consultants Follow up outpatient with Dr. Chua Nurse practitioner note has been reviewed by physician. Signing provider agrees with the documented findings, assessment, and plan of care. Past Medical History Additional Past Medical History / Comment(s): Patient previously had perforated sigmoid diverticulitis and had to establish colostomy which was reversed in August and has done well, back pain compression fx History of Any Multi-Drug Resistant Organisms: None Reported Past Surgical History: Appendectomy, Bowel Resection Additional Past Surgical History / Comment(s): colostomy reversed 11/19/13 Past Anesthesia/Blood Transfusion Reactions: No Reported Reaction Past Psychological History: No Psychological Hx Reported Smoking Status: Former smoker Past Alcohol Use History: Occasional Past Drug Use History: Marijuana Medications and Allergies Home Medications Medication Instructions Recorded Confirmed Type Metoprolol Tartrate [Lopressor] 50 mg PO BID tab 01/30/22 03/27/22 Rx Cyclobenzaprine [Flexeril] 10 mg PO TID@0600,1400,2200 02/03/22 03/27/22 History Ipratropium-Albuterol Nebulize 3 ml INHALATION RT-Q8H 02/03/22 03/27/22 History [Duoneb 0.5 mg-3 mg/3 ml Soln] Pantoprazole [Protonix] 40 mg PO DAILY@0600 02/03/22 03/27/22 History Gabapentin [Neurontin] 300 mg PO TID@0600,1400,2200 3 02/06/22 03/27/22 Rx Days #9 cap oxyCODONE-APAP 7.5-325MG [Percocet 1 tab PO Q6HR PRN 3 Days #12 tab 02/06/22 03/27/22 Rx 7.5-325 mg] Lactose-Reduced Food [Ensure Plus] 1 can PO TID@0900,1300,2100 03/27/22 03/27/22 History Lactulose 10 gm PO BID 03/27/22 03/27/22 History Magnesium Hydroxide [Milk of 2,400 mg PO ONCE@0815 03/27/22 03/27/22 History Magnesia] Na Phos,M-B/Na Phos,Di-Ba [Fleet 133 ml RECTAL ONCE@201403/27/22 03/27/22 History Adult] Povidone-Iodine [Betadine] 1 applic TOPICAL HS 03/27/22 03/27/22 History Psyllium Husk 100% [Metamucil 6 gm PO HS 03/27/22 03/27/22 History Packet] Sennosides [Senokot] 8.6 mg PO DAILY 03/27/22 03/27/22 History Tamsulosin [Flomax] 0.4 mg PO DAILY 03/27/22 03/27/22 History bisacodyL [Dulcolax] 10 mg RECTAL ONCE@1515 03/27/22 03/27/22 History Apixaban [Eliquis] 5 mg PO BID #60 tab 03/28/22 Rx Allergies Allergy/AdvReac Type Severity Reaction Status Date / Time cephalexin monohydrate Allergy Itching Verified 03/27/22 12:45 [From Keflex] Physical Exam Vitals: Vital Signs Temp Pulse Pulse Resp BP BP Pulse Ox 03/28/22 04:00 86 16 117/74 94 L 03/27/22 23:51 97.7 F 84 19 108/72 97 03/27/22 20:51 96 03/27/22 20:35 94 03/27/22 20:00 97.4 F L 94 20 108/72 96 03/27/22 16:20 84 13 94/50 03/27/22 16:00 83 19 91/52 03/27/22 15:40 86 14 94/51 03/27/22 15:00 92 26 H 92/53 03/27/22 14:40 97 27 H 102/54 03/27/22 14:20 98 19 100/50 93 L 03/27/22 14:00 149 H 15 96/69 03/27/22 13:40 152 H 13 101/71 96 03/27/22 13:20 142 H 16 110/63 98 03/27/22 12:20 151 H 23 108/84 95 03/27/22 12:00 146 H 21 95/74 95 03/27/22 11:57 112 H 20 96 03/27/22 11:49 132 H 22 95/74 92 L Intake and Output 03/27/22 03/28/22 03/28/22 22:59 06:59 14:59 Intake Total 105.667 Output Total 900 Balance -794.333 Intake: Intake, IV Titration 105.667 Amount Heparin Sod,Pork in 0.45% 105.667 NaCl 25,000 unit In 0.45 % NaCl 1 250ml.bag @ 9. 5853 UNITS/KG/HR 10 mls/ hr IV .Q24H [facility] Rx#: [id number] Output: Urine 900 Other: Voiding Method Indwelling Catheter Indwelling Catheter Results 03/28/22 07:34 03/28/22 07:34 Cardiac Enzymes 03/27/22 03/27/22 03/27/22 Range/Units 12:19 12:19 14:27 AST 21 (17-59) U/L Troponin I <0.012 <0.012 (0.000-0.034) ng/mL 03/27/22 Range/Units 17:04 AST (17-59) U/L Troponin I <0.012 (0.000-0.034) ng/mL Coagulation 03/27/22 03/27/22 Range/Units 12:19 21:41 PT 11.3 (9.0-12.0) sec APTT 25.5 27.9 (22.0-30.0) sec CBC 03/27/22 Range/Units 12:19 WBC 15.6 H (3.8-10.6) k/uL RBC 4.73 (4.30-5.90) m/uL Hgb 12.5 L (13.0-17.5) gm/dL Hct 39.9 (39.0-53.0) % Plt Count 343 (150-450) k/uL Comprehensive Metabolic Panel 03/27/22 Range/Units 12:19 Sodium 136 L (137-145) mmol/L Potassium 4.6 (3.5-5.1) mmol/L Chloride 104 (98-107) mmol/L Carbon Dioxide 27 (22-30) mmol/L BUN 18 (9-20) mg/dL Creatinine 0.95 (0.66-1.25) mg/dL Glucose 138 H (74-99) mg/dL Calcium 8.9 (8.4-10.2) mg/dL AST 21 (17-59) U/L ALT 16 (4-49) U/L Alkaline Phosphatase 102 (38-126) U/L Total Protein 7.3 (6.3-8.2) g/dL Albumin 3.0 L (3.5-5.0) g/dL Current Medications Generic Name Dose Route Start Last Admin Trade Name Freq PRN Reason Stop Dose Admin Albuterol/Ipratropium 3 ml 03/27/22 20:00 03/27/22 20:33 Ipratropium-Albuterol 3 Ml Neb INHALATION 3 ml RT-TID KRISTIAN Administration Albuterol/Ipratropium 3 ml 03/27/22 15:14 Ipratropium-Albuterol 3 Ml Neb INHALATION RT-TID PRN Shortness Of Breath Or Wheezing Aspirin 325 mg 03/28/22 09:00 Aspirin 325 Mg Tab PO DAILY [facility] Bisacodyl 10 mg 03/27/22 15:15 03/27/22 16:36 Bisacodyl 10 Mg Supp RECTAL Not Given ONCE@1515 [facility] Cyclobenzaprine HCl 10 mg 03/27/22 22:00 03/28/22 06:27 Cyclobenzaprine 10 Mg Tab PO 10 mg TID@0600,1400,2200 KRISTIAN Administration Dextrose/Water 25 ml 03/27/22 18:23 Dextrose 50% Syringe 50 Ml IVP PER PROTOCOL PRN Hypoglycemia Protocol Dextrose/Water 50 ml 03/27/22 18:23 Dextrose 50% Syringe 50 Ml IVP PER PROTOCOL PRN Hypoglycemia Protocol Gabapentin 300 mg 03/27/22 22:00 03/28/22 06:27 Gabapentin 300 Mg Cap PO 300 mg TID@0600,1400,2200 [facility] Administration Heparin Sodium (Porcine) 0 unit 03/27/22 23:14 03/27/22 23:19 Heparin Sodium 1,000 Un/Ml (10ml Vl) IV 4,000 unit PER PROTOCOL PRN Administration Low PTT Protocol Heparin Sodium/Sodium Chloride 250 mls @ 10 mls/hr 03/27/22 12:15 03/27/22 23:19 25,000 unit/ Sodium Chloride IV 12.58 units/kg/hr .Q24H [facility] 13.124 mls/hr Titration Protocol 9.5853 UNITS/KG/HR Levofloxacin 750 mg/ IV 150 mls @ 100 mls/hr 03/28/22 14:00 Solution IVPB Q24H [facility] Protocol Insulin Aspart 0 unit 03/27/22 21:00 03/28/22 06:27 Insulin Aspart (Novolog) 100 Unit/Ml Vial SQ Not Given ACHS [facility] Protocol Lactulose 10 gm 03/27/22 21:00 03/27/22 20:54 Lactulose 20 Gm/30 Ml Cup PO Not Given BID [facility] Magnesium Hydroxide 2,400 mg 03/27/22 15:15 03/27/22 16:36 Magnesium Hydroxide 2,400 Mg/10 Ml Cup PO Not Given ONCE@0815 [facility] Methylprednisolone Sodium Succinate 60 mg 03/28/22 00:00 03/28/22 06:27 Methylprednisolone Sod Succi 125 Mg/2 Ml Vial IV 60 mg Q6HR [facility] Administration Metoprolol Tartrate 50 mg 03/27/22 21:00 03/27/22 20:52 Metoprolol Tartrate 50 Mg Tab PO 50 mg BID [facility] Administration Nitroglycerin 0.4 mg 03/27/22 14:07 Nitroglycerin Sl Tabs 0.4 Mg Tab SUBLINGUAL Q5M PRN Chest Pain Oxycodone/Acetaminophen 1 each 03/27/22 15:14 Oxycodone-Apap 7.5-325mg 1 Each Tab PO Q6HR PRN Pain Pantoprazole Sodium 40 mg 03/28/22 06:00 03/28/22 06:27 Pantoprazole 40 Mg Tablet PO 40 mg DAILY@0600 [facility] Administration Psyllium Hydrophilic Mucilloid 6 gm 03/27/22 21:00 03/27/22 20:53 Psyllium Husk 100% 6 Gm Packet PO Not Given HS [facility] Senna 8.6 mg 03/28/22 09:00 Sennosides 8.6 Mg Tab PO DAILY [facility] Sodium Biphosphate/Sodium Phosphate 133 ml 03/27/22 20:15 03/27/22 20:53 Na Phos,M-B/Na Phos,Di-Ba 133 Ml Enema RECTAL Not Given ONCE@2014 [facility] Tamsulosin HCl 0.4 mg 03/28/22 09:00 Tamsulosin 0.4 Mg Cap.Er.24h PO DAILY [facility] Intake and Output 03/27/22 03/28/22 03/28/22 22:59 06:59 14:59 Intake Total 105.667 Output Total 900 Balance -794.333 Intake: Intake, IV Titration 105.667 Amount Heparin Sod,Pork in 0.45% 105.667 NaCl 25,000 unit In 0.45 % NaCl 1 250ml.bag @ 9. 5853 UNITS/KG/HR 10 mls/ hr IV .Q24H [facility] Rx#: [id number] Output: Urine 900 Other: Voiding Method Indwelling Catheter Indwelling Catheter 03/27/22 12:19 03/27/22 12:19
[2022-03-28 12:10] LABS: Glucose,Whole Blood 145 mg/dL (70-110)
--- NOTE | 2022-03-28 15:02 | P.CNPUL ---
History of Present Illness Consult date: 03/28/22 Requesting physician: Helen Vera Reason for consult: chest pain, lung mass Chief complaint: Chest pain. History of present illness: Pulmonary consult dated 03/28/2022. 71-year-old male who was seen in the emergency department on 03/27/2022. The patient apparently is a resident at one of the local nursing homes, and experienced chest pain and lightheadedness. He felt like he was going to pass out. Anyway, this lasted for about 20 or 30 minutes, and because of a racing heart rate, the patient was sent to the emergency room, to be evaluated. The patient smoked until 2012. Recently, he had a orthopedic procedure, and a biopsy, revealed metastatic adenocarcinoma, primary lung cancer. The patient has not received any treatment for his lung cancer as yet. Getting back to the ER visit, on March 27, the patient was made with a diagnosis of atrial fibrillation with rapid ventricular response. Currently, he's on 2 L nasal cannula. He is getting saline at 50 mL an hour. The patient had a bone biopsy done at [facility], on January 23, by the orthopedic surgeon, which revealed metastatic poo rly differentiated carcinoma, consistent with pulmonary adenocarcinoma. Chest x-ray revealed possible pneumonia versus atelectasis at the right lung base. CT angiogram showed right-sided pulmonary infiltrates and consolidation, with a right pleural effusion. There is no evidence of pulmonary embolism. There is also distracted changes in the sternum which was more extensive on the study done on this admission. White count 11.8, hemoglobin 11.1, hematocrit 37.3, and platelet count 351,000. PTT is 36.3. Sodium 137, potassium 4.9, chlorides 108, CO2 22, BUN 19, and creatinine 0.81. TSH is normal. Albumin 2.9. Review of Systems REVIEW OF SYSTEMS: CONSTITUTIONAL: Weakness. NEUROLOGIC: Lightheadedness. HEENT: [ Negative.] CARDIAC: Chest pain and racing heart rate. PULMONARY: Shortness of breath. GI: [Negative.] : [Negative.] RHEUMATOLOGIC: [ Negative.] IMMUNOLOGIC: [ Negative.] ENDOCRINE: [Negative. ] DERMATOLOGIC: [Negative.] Past Medical History Past Medical History: Cancer Additional Past Medical History / Comment(s): Patient previously had perforated sigmoid diverticulitis and had to establish colostomy which was reversed in August and has done well, back pain compression fx History of Any Multi-Drug Resistant Organisms: None Reported Past Surgical History: Appendectomy, Bowel Resection Additional Past Surgical History / Comment(s): colostomy reversed 11/19/13. Spinal surgery for cord compression from metastatic cancer Past Anesthesia/Blood Transfusion Reactions: No Reported Reaction Past Psychological History: No Psychological Hx Reported Smoking Status: Former smoker Past Alcohol Use History: Occasional Past Drug Use History: Marijuana Medications and Allergies Home Medications Medication Instructions Recorded Confirmed Type Metoprolol Tartrate [Lopressor] 50 mg PO BID tab 01/30/22 03/27/22 Rx Cyclobenzaprine [Flexeril] 10 mg PO TID@0600,1400,2200 02/03/22 03/27/22 History Ipratropium-Albuterol Nebulize 3 ml INHALATION RT-Q8H 02/03/22 03/27/22 History [Duoneb 0.5 mg-3 mg/3 ml Soln] Pantoprazole [Protonix] 40 mg PO DAILY@0600 02/03/22 03/27/22 History Gabapentin [Neurontin] 300 mg PO TID@0600,1400,2200 3 02/06/22 03/27/22 Rx Days #9 cap oxyCODONE-APAP 7.5-325MG [Percocet 1 tab PO Q6HR PRN 3 Days #12 tab 02/06/22 03/27/22 Rx 7.5-325 mg] Lactose-Reduced Food [Ensure Plus] 1 can PO TID@0900,1300,2100 03/27/22 03/27/22 History Lactulose 10 gm PO BID 03/27/22 03/27/22 History Magnesium Hydroxide [Milk of 2,400 mg PO ONCE@81403/27/22 03/27/22 History Magnesia] Na Phos,M-B/Na Phos,Di-Ba [Fleet 133 ml RECTAL ONCE@201403/27/22 03/27/22 History Adult] Povidone-Iodine [Betadine] 1 applic TOPICAL 03/27/22 03/27/22 History Psyllium Husk 100% [Metamucil 6 gm PO HS 03/27/22 03/27/22 History Packet] Sennosides [Senokot] 8.6 mg PO DAILY 03/27/22 03/27/22 History Tamsulosin [Flomax] 0.4 mg PO DAILY 03/27/22 03/27/22 History bisacodyL [Dulcolax] 10 mg RECTAL ONCE@1515 03/27/22 03/27/22 History Apixaban [Eliquis] 5 mg PO BID #60 tab 03/28/22 Rx Allergies Allergy/AdvReac Type Severity Reaction Status Date / Time cephalexin monohydrate Allergy Itching Verified 03/27/22 12:45 [From Keflex] Physical Exam Osteopathic Statement: *. No significant issues noted on an osteopathic structural exam other than those noted in the History and Physical/Consult. Vitals: Vital Signs Temp Pulse Pulse Resp BP BP Pulse Ox 03/28/22 12:24 78 16 125/79 94 L 03/28/22 09:07 93 16 126/80 94 L 03/28/22 08:54 90 16 03/28/22 08:42 90 16 94 L 03/28/22 04:00 86 16 117/74 94 L 03/27/22 23:51 97.7 F 84 19 108/72 97 03/27/22 20:51 96 03/27/22 20:35 94 03/27/22 20:00 97.4 F L 94 20 108/72 96 03/27/22 16:20 84 13 94/50 03/27/22 16:00 83 19 91/52 03/27/22 15:40 86 14 94/51 03/27/22 15:00 92 26 H 92/53 Intake and Output 03/27/22 03/28/22 03/28/22 22:59 06:59 14:59 Intake Total 105.667 Output Total 900 Balance -794.333 Intake: Intake, IV Titration 105.667 Amount Heparin Sod,Pork in 0.45% 105.667 NaCl 25,000 unit In 0.45 % NaCl 1 250ml.bag @ 9. 5853 UNITS/KG/HR 10 mls/ hr IV .Q24H [facility] Rx#: [id number] Output: Urine 900 Other: Voiding Method Indwelling Catheter Indwelling Catheter # Voids 1 No acute distress, oriented 3. Currently on 2 L with adequate saturations. No use of accessory muscles or conversational dyspnea. HEENT examination is grossly unremarkable. Neck supple. Full range of motion. No adenopathy thyromegaly or neck vein distention. Cardiovascular examination reveals regular rhythm rate. S1-S2 normal. No S3 or S4. No discernible murmur noted. Heart rate 78 bpm. Lungs reveal mostly clear breath sounds. Minimal scattered rhonchi noted. No wheezes. No crackles. Breath sounds equal bilaterally. Abdomen soft bowel sounds are heard. No masses or tenderness. Extremities are intact. No cyanosis clubbing or edema. Skin is without rash or lesion. Neurologic examination is brief but nonfocal. Results - Laboratory Findings CBC and BMP: 03/28/22 07:34 03/28/22 07:34 PT/INR, D-dimer PT 11.3 sec (9.0-12.0) 03/27/22 12:19 INR 1.0 (<1.2) 03/27/22 12:19 D-Dimer 7.90 mg/L FEU (<0.60) H 03/27/22 12:19 Abnormal lab findings: Abnormal Labs 03/27/22 03/27/22 03/27/22 12:19 12:19 12:19 WBC 15.6 H Hgb 12.5 L Hct MCHC RDW 16.4 H Neutrophils # 13.0 H Lymphocytes # APTT D-Dimer 7.90 H Sodium 136 L Chloride Glucose 138 H POC Glucose (mg/dL) Albumin 3.0 L 03/27/22 03/28/22 03/28/22 20:02 05:50 07:34 WBC 11.8 H Hgb 11.1 L Hct 37.3 L MCHC 29.7 L RDW 16.1 H Neutrophils # 10.8 H Lymphocytes # 0.8 L APTT D-Dimer Sodium Chloride Glucose POC Glucose (mg/dL) 135 H 143 H Albumin 03/28/22 03/28/22 03/28/22 07:34 07:34 12:02 WBC Hgb Hct MCHC RDW Neutrophils # Lymphocytes # APTT 36.3 H D-Dimer Sodium Chloride 108 H Glucose 150 H POC Glucose (mg/dL) 145 H Albumin 2.9 L - Diagnostic Findings Chest x-ray: image reviewed CT scan - chest: image reviewed Assessment and Plan Assessment: Chest pain, possibly related to the patient's atrial fibrillation/RVR, or the metastatic deposit in his sternum. New onset atrial fibrillation with rapid ventricular response. Possible pneumonia right lower lobe, versus lung malignancy. Recent diagnosis of metastatic adenocarcinoma, lung primary, on T10 bone biopsy. Recent extensive back procedure, for T10 pathologic fracture, 01/23/2022. History of perforated sigmoid diverticulitis, status post colostomy and subsequent reversal. History of appendectomy. Prior history of tobacco use. Plan: Plan dated March 2022. The patient is very stable from the pulmonary standpoint. He is on 2 L of oxygen. His saturations are excellent. He is getting saline at 50 mL an hour. The patient was on IV heparin but that has been discontinued. The patient is on a factor X a inhibitor. The patient's currently on updrafts and antibiotics. Corticosteroids can be discontinued. I would check a pro-calcitonin level. I'm not sure that the patient has active infection at this time. Additional recommendations and suggestions are forthcoming. We will continue to follow along with you. Time with Patient: Greater than 30
[2022-03-28] MEDS: LEVOFLOXACIN 750MG-D5W PMX 750 MG in DEXTROSE/WATER 1 150ML.BAG IVPB SCH (15:06)
--- NOTE | 2022-03-28 15:06 | P.CONS ---
History of Present Illness - Reason for Consult Consult date: 03/28/22 lung adenocarcinoma Requesting physician: Helen Vera - Chief Complaint chest pain - History of Present Illness Mr. López is a very is an 71-year-old male patient of Dr. Italo Strickland with an Oncologic history began October 2021. He developed anterior chest wall pain, attributed this to his dog jumping on him. CT chest in [facility] ER on November 17, 2021, study apparently revealed a 1.7 cm right lower lung nodule, it was recommended to patient that he undergo further workup. PET/CT in [place] January 08. This revealed abnormal activity in the right lower lung nodule, as well as abnormal-appearing right hilar lymph nodes and several foci of bone metastases including the sternum, thoracic and lumbar spine. The patient was referred to Dr. Smiht. Pulmonary function testing revealed an FEV1 of 32%. They were planning on undergoing biopsy, however the patient developed severe onset of lower back pain and presented to the ER [facility] on January 17. He lost ability to walk. CT lumbar spine revealed destructive changes at the T10 vertebral body with 20% compression deformity, felt to potentially be pathologic with retropulsion into the spinal canal. A subsequent CT scan of the thoracic spine and cervical spine redemonstrated the T10 lytic lesion, as well as showing an abnormal lesion in L1. MRI revealed the T10 vertebral body lesion with 4 mm retropulsion into the spinal canal and this was noted to cause cord edema at that level. There was a smaller, hypointense lesion at L1. Pt started on dexamethasone as well as pain medications and placed on bedrest. Orthopedic Spine Surgeon performed a decompressive laminectomy on 01/23/22. 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 DC to [facility] on 02/09/22. He was brought back to the hospital because of abnormal labs, specifically markedly elevated BUN/creatinine. CT AP showed bilateral perinephric stranding and hydronephrosis/hydroureter on the right. CAT scan was done after Weaver catheter placement. 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 After placement of the Weaver catheter, creatinine improved. patient has been able to walk. Patient states when seen today that he is still in rehabilitation. He has been seen in the office by Dr. Adela Strickland, 03/13/22. repeat imaging, referral to radiation oncology. PDL 195%, April losing lab offered as first-line. Just pending patient's discharge from rehabilitation to begin treatment of cancer. Patient is admitted with complaints of chest pain, lightheadedness and near syncope. When seen, he is denying any of the previously mentioned symptoms. He is feeling okay since admit. Denies any fevers, chills, oral irritation, unusual cough, nausea, vomiting, abdominal pain or cramping, acute changes in bowel or bladder habits, swelling in the legs, he has been working with physical therapy and has been able to ambulate. Review of Systems 10 point ROS is neg except as stated in HPI Past Medical History Past Medical History: Cancer Additional Past Medical History / Comment(s): Patient previously had perforated sigmoid diverticulitis and had to establish colostomy which was reversed in August and has done well, back pain compression fx History of Any Multi-Drug Resistant Organisms: None Reported Past Surgical History: Appendectomy, Bowel Resection Additional Past Surgical History / Comment(s): colostomy reversed 11/19/13. Spinal surgery for cord compression from metastatic cancer Past Anesthesia/Blood Transfusion Reactions: No Reported Reaction Past Psychological History: No Psychological Hx Reported Smoking Status: Former smoker Past Alcohol Use History: Occasional Past Drug Use History: Marijuana - Past Family History Father Family Medical History: Cancer (bladder) Additional Family Medical History / Comment(s): 3 sisters, breast, kidney and lung cancer. Daughter(s) Family Medical History: Cancer (breast) Medications and Allergies Home Medications Medication Instructions Recorded Confirmed Type Metoprolol Tartrate [Lopressor] 50 mg PO BID tab 01/30/22 03/27/22 Rx Cyclobenzaprine [Flexeril] 10 mg PO TID@0600,1400,2200 02/03/22 03/27/22 History Ipratropium-Albuterol Nebulize 3 ml INHALATION RT-Q8H 02/03/22 03/27/22 History [Duoneb 0.5 mg-3 mg/3 ml Soln] Pantoprazole [Protonix] 40 mg PO DAILY@0600 02/03/22 03/27/22 History Gabapentin [Neurontin] 300 mg PO TID@0600,1400,2200 3 02/06/22 03/27/22 Rx Days #9 cap oxyCODONE-APAP 7.5-325MG [Percocet 1 tab PO Q6HR PRN 3 Days #12 tab 02/06/22 03/27/22 Rx 7.5-325 mg] Lactose-Reduced Food [Ensure Plus] 1 can PO TID@0900,1300,2100 03/27/22 03/27/22 History Lactulose 10 gm PO BID 03/27/22 03/27/22 History Magnesium Hydroxide [Milk of 2,400 mg PO ONCE@0815 03/27/22 03/27/22 History Magnesia] Na Phos,M-B/Na Phos,Di-Ba [Fleet 133 ml RECTAL ONCE@201403/27/22 03/27/22 History Adult] Povidone-Iodine [Betadine] 1 applic TOPICAL 03/27/22 03/27/22 History Psyllium Husk 100% [Metamucil 6 gm PO HS 03/27/22 03/27/22 History Packet] Sennosides [Senokot] 8.6 mg PO DAILY 03/27/22 03/27/22 History Tamsulosin [Flomax] 0.4 mg PO DAILY 03/27/22 03/27/22 History bisacodyL [Dulcolax] 10 mg RECTAL ONCE@1515 03/27/22 03/27/22 History Apixaban [Eliquis] 5 mg PO BID #60 tab 03/28/22 Rx Allergies Allergy/AdvReac Type Severity Reaction Status Date / Time cephalexin monohydrate Allergy Itching Verified 03/27/22 12:45 [From Keflex] Physical Exam Vitals: Vital Signs Temp Pulse Pulse Resp BP BP Pulse Ox 03/28/22 08:42 90 16 94 L 03/28/22 04:00 86 16 117/74 94 L 03/27/22 23:51 97.7 F 84 19 108/72 97 03/27/22 20:51 96 03/27/22 20:35 94 03/27/22 20:00 97.4 F L 94 20 108/72 96 03/27/22 16:20 84 13 94/50 03/27/22 16:00 83 19 91/52 03/27/22 15:40 86 14 94/51 03/27/22 15:00 92 26 H 92/53 03/27/22 14:40 97 27 H 102/54 03/27/22 14:20 98 19 100/50 93 L 03/27/22 14:00 149 H 15 96/69 03/27/22 13:40 152 H 13 101/71 96 03/27/22 13:20 142 H 16 110/63 98 03/27/22 12:20 151 H 23 108/84 95 03/27/22 12:00 146 H 21 95/74 95 03/27/22 11:57 112 H 20 96 03/27/22 11:49 132 H 22 95/74 92 L Intake and Output 03/27/22 03/28/22 03/28/22 22:59 06:59 14:59 Intake Total 105.667 Output Total 900 Balance -794.333 Intake: Intake, IV Titration 105.667 Amount Heparin Sod,Pork in 0.45% 105.667 NaCl 25,000 unit In 0.45 % NaCl 1 250ml.bag @ 9. 5853 UNITS/KG/HR 10 mls/ hr IV .Q24H [facility] Rx#: [id number] Output: Urine 900 Other: Voiding Method Indwelling Catheter Indwelling Catheter - Constitutional General appearance: cooperative, no acute distress, obese - EENT Eyes: anicteric sclerae, EOMI ENT: hearing grossly normal, normal oropharynx - Neck Neck: no lymphadenopathy - Respiratory Respiratory: right: diminished, left: CTA - Cardiovascular Rhythm: irregularly irregular Heart sounds: normal: S1, S2 Abnormal Heart Sounds: no systolic murmur, no diastolic murmur, no rub, no S3 Gallop, no S4 Gallop, no click, no other leg Peripheral Edema: bilateral: None - Gastrointestinal General gastrointestinal: no absent bowel sounds, no decreased bowel sounds, no distended, no hepatomegaly, no hyperactive bowel sounds, normal bowel sounds, no organomegaly, no rigid, no scaphoid, soft, no splenomegaly, no tenderness, no umbilical hernia, no ventral hernia - Integumentary Integumentary: normal - Neurologic Neurologic: CNII-XII intact - Musculoskeletal Musculoskeletal: strength equal bilaterally - Psychiatric Psychiatric: A&O x's 3, appropriate affect, intact judgment & insight Results CBC & Chem 7: 03/28/22 07:34 03/28/22 07:34 Labs: Abnormal Lab Results - Last 24 Hours (Table) 03/27/22 03/27/22 03/27/22 Range/Units 12:19 12:19 12:19 WBC 15.6 H (3.8-10.6) k/uL Hgb 12.5 L (13.0-17.5) gm/dL Hct (39.0-53.0) % MCHC (31.0-37.0) g/dL RDW 16.4 H (11.5-15.5) % Neutrophils # 13.0 H (1.3-7.7) k/uL Lymphocytes # (1.0-4.8) k/uL APTT (22.0-30.0) sec D-Dimer 7.90 H (<0.60) mg/L FEU Sodium 136 L (137-145) mmol/L Chloride (98-107) mmol/L Glucose 138 H (74-99) mg/dL POC Glucose (mg/dL) (70-110) mg/dL Albumin 3.0 L (3.5-5.0) g/dL 03/27/22 03/28/22 03/28/22 Range/Units 20:02 05:50 07:34 WBC 11.8 H (3.8-10.6) k/uL Hgb 11.1 L (13.0-17.5) gm/dL Hct 37.3 L (39.0-53.0) % MCHC 29.7 L (31.0-37.0) g/dL RDW 16.1 H (11.5-15.5) % Neutrophils # 10.8 H (1.3-7.7) k/uL Lymphocytes # 0.8 L (1.0-4.8) k/uL APTT (22.0-30.0) sec D-Dimer (<0.60) mg/L FEU Sodium (137-145) mmol/L Chloride (98-107) mmol/L Glucose (74-99) mg/dL POC Glucose (mg/dL) 135 H 143 H (70-110) mg/dL Albumin (3.5-5.0) g/dL 03/28/22 03/28/22 Range/Units 07:34 07:34 WBC (3.8-10.6) k/uL Hgb (13.0-17.5) gm/dL Hct (39.0-53.0) % MCHC (31.0-37.0) g/dL RDW (11.5-15.5) % Neutrophils # (1.3-7.7) k/uL Lymphocytes # (1.0-4.8) k/uL APTT 36.3 H (22.0-30.0) sec D-Dimer (<0.60) mg/L FEU Sodium (137-145) mmol/L Chloride 108 H (98-107) mmol/L Glucose 150 H (74-99) mg/dL POC Glucose (mg/dL) (70-110) mg/dL Albumin 2.9 L (3.5-5.0) g/dL Chest x-ray: report reviewed CT scan - chest: report reviewed Assessment and Plan (1) Chest pain Current Visit: Yes Status: Acute Code(s): R07.9 - CHEST PAIN, UNSPECIFIED SNOMED Code(s): 46041203 (2) Adenocarcinoma, lung Current Visit: No Status: Acute Priority: High Code(s): C34.90 - MALIGNANT NEOPLASM OF UNSP PART OF UNSP BRONCHUS OR LUNG SNOMED Code(s): 074982263 (3) Compression of spinal cord Current Visit: No Status: Acute Priority: High Code(s): G95.20 - UNSPECIFIED CORD COMPRESSION SNOMED Code(s): 46543726 Plan: Patient presentation Cardiology consult and Pulmonary consult. He is feeling better since admission. Agree with antibiotics based on CT chest/chest x-ray, possible pneumonia/postob structive pneumonia near patient's known lung cancer. Follow-up appointments in the chart for Medical Oncology. Will discuss the case with radiation oncology to ensure patient is being followed up there. attests: I preformed H&P, seen and examined patient, developed impression and plan of care. Discussed with dictator. Agree with documentation, dictated as a scribe
[2022-03-28] MEDS: bisacodyL 10 MG SUPP RECTAL SCH (16:19)
[2022-03-28 16:41] LABS: Glucose,Whole Blood 231 mg/dL (70-110)
[2022-03-28 17:08] LABS: Chol/HDL Ratio 4.49 Ratio; LDL Cholesterol,Calculated 108.8 mg/dL (0.0-131.0)
[2022-03-28 20:12] LABS: Glucose,Whole Blood 132 mg/dL (70-110)
[2022-03-28] MEDS: NA PHOS,M-B/NA PHOS,DI-BA 133 ML ENEMA RECTAL SCH (20:51)
[2022-03-28] MEDS: PSYLLIUM HUSK 100% 6 GM PACKET PO SCH (20:51)
[2022-03-29] MEDS: INSULIN ASPART (NovoLOG) 100 UNIT/ML VIAL SQ SCH ×5 (03:20→20:31)
[2022-03-29 06:07] LABS: Glucose,Whole Blood 159 mg/dL (70-110)
[2022-03-29] MEDS: PANTOPRAZOLE 40 MG TABLET PO SCH (06:38)
[2022-03-29] MEDS: GABAPENTIN 300 MG CAP PO SCH ×3 (06:38→20:31)
[2022-03-29] MEDS: CYCLOBENZAPRINE 10 MG TAB PO SCH ×3 (06:38→20:30)
[2022-03-29] MEDS: MAGNESIUM HYDROXIDE 2,400 MG/10 ML CUP PO SCH (07:55)
--- NOTE | 2022-03-29 08:17 | PN ---
PROGRESS NOTE SUBJECTIVE: This 71-year-old gentleman was admitted with atrial fibrillation, also had possible right lower pneumonia NTD. No chest pain, no palpitations. No fever. PHYSICAL EXAMINATION: VITAL SIGNS: Pulse 78, blood pressure ntd, respirations ntd HEENT: Conjunctivae normal. CARDIOVASCULAR: S1, S2 muffled. RESPIRATION: Bilateral scattered rhonchi ABDOMEN: Soft and obese. LABS: Reviewed, WBC 11.8, other labs are reviewed. ASSESSMENT: 1. Atrial fibrillation with fast ventricular rate. 2. Right lower pneumonia, possibly gram-negative present on admission. 3. Increased WBC. 4. History of pneumonia. 5. Chronic obstructive pulmonary disease. 6. Multiple medical issues. 7. Possible lung cancer with metastasis, will continue to monitor. RECOMMENDATIONS AND DISCUSSION: I recommend to continue the current medications, continue the bronchodilators. Follow closely with multiple consultants. A CTA which was done yesterday which was reviewed personally by me showed right-sided pulmonary infiltrate and consolidation. No evidence of pulmonary embolism, lung abnormality increased and destructive changes in the sternum was also noted. MMODL / IJN: [id number] / MTDD
[2022-03-29] MEDS: LACTULOSE 20 GM/30 ML CUP PO SCH ×2 (08:19→20:30)
[2022-03-29] MEDS: SENNOSIDES 8.6 MG TAB PO SCH (08:19)
[2022-03-29] MEDS: TAMSULOSIN 0.4 MG CAP.ER.24H PO SCH (08:19)
[2022-03-29] MEDS: APIXABAN 5 MG TAB PO SCH ×2 (08:19→20:31)
[2022-03-29] MEDS: METOPROLOL TARTRATE 50 MG TAB PO SCH ×2 (08:19→20:31)
[2022-03-29] MEDS: IPRATROPIUM-ALBUTEROL 3 ML NEB INHALATION SCH ×3 (08:50→20:14)
[2022-03-29 11:08] LABS: Anisocytosis Slight; Basophils # (A) 0.1 k/uL (0-0.2); Basophils % (A) 1 %; Eosinophils % (A) 0 %; HCT 39.7 % (39.0-53.0); HGB 11.6 gm/dL (13.0-17.5); Hypochromasia Marked; Lymphocytes # (A) 0.7 k/uL (1.0-4.8); Lymphocytes % (A) 7 %; MCH 26.8 pg (25.0-35.0); MCHC 29.3 g/dL (31.0-37.0); Mean Platelet Volume 8.1; Monocytes # (A) 0.6 k/uL (0-1.0); Monocytes % (A) 6 %; Neutrophils # (A) 9.1 k/uL (1.3-7.7); Neutrophils % (A) 86 %; Platelet Count 310 k/uL (150-450); RBC 4.34 m/uL (4.30-5.90); RDW 16.1 % (11.5-15.5); WBC 10.6 k/uL (3.8-10.6)
[2022-03-29 11:20] LABS: African American GFR (CKD) >90 (>60 ml/min/1.73 sqM); Anion Gap 7 mmol/L; Blood Urea Nitrogen 23 mg/dL (9-20); Calcium 9.1 mg/dL (8.4-10.2); Carbon Dioxide 25 mmol/L (22-30); Chloride 103 mmol/L (98-107); Glucose 167 mg/dL (74-99); Non-African American GFR(CKD) >90 (>60 ml/min/1.73 sqM); Sodium 135 mmol/L (137-145)
[2022-03-29 11:48] LABS: Glucose,Whole Blood 271 mg/dL (70-110)
[2022-03-29 12:37] LABS: MCV 91.6 fL (80.0-100.0)
--- NOTE | 2022-03-29 13:48 | P.PN ---
Subjective Progress Note Date: 03/29/22 Principal diagnosis: Chest pain. Pulmonary consult dated 03/28/2022. 71-year-old male who was seen in the emergency department on 03/27/2022. The patient apparently is a resident at one of the local nursing homes, and experienced chest pain and lightheadedness. He felt like he was going to pass out. Anyway, this lasted for about 20 or 30 minutes, and because of a racing he art rate, the patient was sent to the emergency room, to be evaluated. The patient smoked until 2012. Recently, he had a orthopedic procedure, and a biopsy, revealed metastatic adenocarcinoma, primary lung cancer. The patient has not received any treatment for his lung cancer as yet. Getting back to the ER visit, on March 27, the patient was made with a diagnosis of atrial fibrillation with rapid ventricular response. Currently, he's on 2 L nasal cannula. He is getting saline at 50 mL an hour. The patient had a bone biopsy done at T[facility], on January 23, by the orthopedic surgeon, which revealed metastatic poorly differentiated carcinoma, consistent with pulmonary adenocarcinoma. Chest x-ray revealed possible pneumonia versus atelectasis at the right lung base. CT angiogram showed right-sided pulmonary infiltrates and consolidation, with a right pleural effusion. There is no evidence of pulmonary embolism. There is also distracted changes in the sternum which was more extensive on the study done on this admission. White count 11.8, hemoglobin 11.1, hematocrit 37.3, and platelet count 351,000. PTT is 36.3. Sodium 137, potassium 4.9, chlorides 108, CO2 22, BUN 19, and creatinine 0.81. TSH is normal. Albumin 2.9. Progress note dated 03/29/2022. 71-year-old gentleman with history of metastatic adenocarcinoma, lung primary. The patient was seen in consultation yesterday, March 28. He was seen initially in the emergency department on March 27, with chest pain, lightheadedness, and racing heart rate. Clinically, the patient's very stable today. He's on room air. He is getting saline at 20 mL an hour. He was found to have atrial fibrillation with RVR. Yesterday, he was on IV heparin but that has been discontinued. Clinically, he is not having any shortness of breath. White count 10.6, hemoglobin 11.6, hematocrit 39.7, and platelet count 310,000. Sodium 135, potassium 5, chlorides 103, CO2 25, with a BUN and creatinine of 23 and 0.75. Calcium 9.1. Blood cultures are negative. No recent chest x-ray to speak of. Objective - Vital Signs Vital signs: Vital Signs Temp 97.5 F L 03/29/22 08:00 Pulse 82 03/29/22 12:19 Resp 16 03/29/22 11:49 BP 113/59 03/29/22 11:49 Pulse Ox 96 03/29/22 11:49 FiO2 Intake & Output 03/28/22 03/29/22 03/29/22 18:59 06:59 18:59 Intake Total 390 118 Output Total 875 200 Balance 390 -875 -82 Intake: IV 150 Levofloxacin 750Mg-D5w 150 Pmx 750 mg In Dextrose/ Water 1 150ml.bag @ 100 mls/hr IVPB Q24H [facility] Rx#: [id number] Oral 240 118 Output: Urine 875 200 Other: Voiding Method Indwelling Catheter Indwelling Catheter Indwelling Catheter # Voids 1 - Exam No acute distress, oriented 3. Currently on room air. No use of accessory muscles or conversational dyspnea. Saturations are 96%. HEENT examination is grossly unremarkable. Neck supple. Full range of motion. No adenopathy thyromegaly or neck vein distention. Cardiovascular examination reveals regular rhythm rate. S1-S2 normal. No S3 or S4. No discernible murmur noted. Heart rate 82 bpm. Lungs reveal mostly clear breath sounds. Minimal scattered rhonchi noted. No wheezes. No crackles. Breath sounds equal bilaterally. Abdomen soft bowel sounds are heard. No masses or tenderness. Extremities are intact. No cyanosis clubbing or edema. Skin is without rash or lesion. Neurologic examination is brief but nonfocal. - Labs CBC & Chem 7: 03/29/22 10:26 03/29/22 10:26 Labs: Abnormal Lab Results - Last 24 Hours (Table) 03/28/22 03/28/22 03/28/22 Range/Units 07:34 16:39 20:10 Hgb (13.0-17.5) gm/dL MCHC (31.0-37.0) g/dL RDW (11.5-15.5) % Neutrophils # (1.3-7.7) k/uL Lymphocytes # (1.0-4.8) k/uL Sodium (137-145) mmol/L BUN (9-20) mg/dL Glucose (74-99) mg/dL POC Glucose (mg/dL) 231 H 132 H (70-110) mg/dL HDL Cholesterol 39.00 L (40.00-60.00) mg/dL 03/29/22 03/29/22 03/29/22 Range/Units 06:05 10:26 10:26 Hgb 11.6 L (13.0-17.5) gm/dL MCHC 29.3 L (31.0-37.0) g/dL RDW 16.1 H (11.5-15.5) % Neutrophils # 9.1 H (1.3-7.7) k/uL Lymphocytes # 0.7 L (1.0-4.8) k/uL Sodium 135 L (137-145) mmol/L BUN 23 H (9-20) mg/dL Glucose 167 H (74-99) mg/dL POC Glucose (mg/dL) 159 H (70-110) mg/dL HDL Cholesterol (40.00-60.00) mg/dL 03/29/22 Range/Units 11:47 Hgb (13.0-17.5) gm/dL MCHC (31.0-37.0) g/dL RDW (11.5-15.5) % Neutrophils # (1.3-7.7) k/uL Lymphocytes # (1.0-4.8) k/uL Sodium (137-145) mmol/L BUN (9-20) mg/dL Glucose (74-99) mg/dL POC Glucose (mg/dL) 271 H (70-110) mg/dL HDL Cholesterol (40.00-60.00) mg/dL Microbiology - Last 24 Hours (Table) 03/27/22 13:57 Blood Culture - Preliminary Blood No Growth after 24 hours 03/27/22 14:07 Blood Culture - Preliminary Blood No Growth after 24 hours Assessment and Plan Assessment: Chest pain, possibly related to the patient's atrial fibrillation/RVR, or the metastatic deposit in his sternum. New onset atrial fibrillation with rapid ventricular response. Possible pneumonia right lower lobe, versus lung malignancy. Recent diagnosis of metastatic adenocarcinoma, lung primary, on T10 bone biopsy. Recent extensive back procedure, for T10 pathologic fracture, 01/23/2022. History of perforated sigmoid diverticulitis, status post colostomy and subseq uent reversal. History of appendectomy. Prior history of tobacco use. Plan: Plan dated March 2022. The patient is very stable from the pulmonary standpoint. He is on 2 L of oxygen. His saturations are excellent. He is getting saline at 50 mL an hour. The patient was on IV heparin but that has been discontinued. The patient is on a factor X a inhibitor. The patient's currently on updrafts and antibiotics. Corticosteroids can be discontinued. I would check a pro-calcitonin level. I'm not sure that the patient has active infection at this time. Additional recommendations and suggestions are forthcoming. We will continue to follow along with you. Plan dated 03/29/2022. The patient is stable from the pulmonary standpoint. Saturations are excellent on room air. I did a pro-calcitonin level. I don't see on the medical record. I was hoping to discontinue his antibiotics, if the pro-calcitonin level was in the normal range. We'll have to call the lab, to find out its results. Currently, he's on Levaquin. He is also getting breathing treatments. Finally, the steroids were discontinued yesterday by myself. He did not need them. The patient has been switched from heparin to Eliquis. Time with Patient: Less than 30
--- NOTE | 2022-03-29 14:14 | P.PN ---
Subjective Progress Note Date: 03/29/22 Principal diagnosis: A. fib with RVR, pneumonia In follow-up today patient denies chest pain, shortness of breath, he has not ambulated to the restroom yet. He denies any other pain. He is tolerating oral intake. Objective - Vital Signs Vital signs: Vital Signs Temp 97.5 F L 03/29/22 08:00 Pulse 82 03/29/22 12:19 Resp 16 03/29/22 11:49 BP 113/59 03/29/22 11:49 Pulse Ox 96 03/29/22 11:49 FiO2 Intake & Output 03/28/22 03/29/22 03/29/22 18:59 06:59 18:59 Intake Total 390 118 Output Total 875 200 Balance 390 -875 -82 Intake: IV 150 Levofloxacin 750Mg-D5w 150 Pmx 750 mg In Dextrose/ Water 1 150ml.bag @ 100 mls/hr IVPB Q24H [facility] Rx#: [id number] Oral 240 118 Output: Urine 875 200 Other: Voiding Method Indwelling Catheter Indwelling Catheter Indwelling Catheter # Voids 1 - Constitutional General appearance: Present: average body habitus, cooperative, no acute distress - EENT Eyes: Present: anicteric sclerae, EOMI ENT: Present: hearing grossly normal - Respiratory Respiratory: bilateral: CTA, diminished (Bases) - Cardiovascular Rhythm: regular Abnormal Heart Sounds: Present: systolic murmur. Absent: diastolic murmur, rub, S3 Gallop, S4 Gallop, click, other - Peripheral edema leg Peripheral Edema: bilateral: None - Gastrointestinal General gastrointestinal: Present: normal bowel sounds, soft - Neurologic Neurologic: Present: CNII-XII intact (Grossly) - Musculoskeletal Musculoskeletal: Present: generalized weakness, strength equal bilaterally - Psychiatric Psychiatric: Present: A&O x's 3, appropriate affect, intact judgment & insight - Labs CBC & Chem 7: 03/29/22 10:26 03/29/22 10:26 Labs: Abnormal Lab Results - Last 24 Hours (Table) 03/28/22 03/28/22 03/28/22 Range/Units 07:34 16:39 20:10 Hgb (13.0-17.5) gm/dL MCHC (31.0-37.0) g/dL RDW (11.5-15.5) % Neutrophils # (1.3-7.7) k/uL Lymphocytes # (1.0-4.8) k/uL Sodium (137-145) mmol/L BUN (9-20) mg/dL Glucose (74-99) mg/dL POC Glucose (mg/dL) 231 H 132 H (70-110) mg/dL HDL Cholesterol 39.00 L (40.00-60.00) mg/dL 03/29/22 03/29/22 03/29/22 Range/Units 06:05 10:26 10:26 Hgb 11.6 L (13.0-17.5) gm/dL MCHC 29.3 L (31.0-37.0) g/dL RDW 16.1 H (11.5-15.5) % Neutrophils # 9.1 H (1.3-7.7) k/uL Lymphocytes # 0.7 L (1.0-4.8) k/uL Sodium 135 L (137-145) mmol/L BUN 23 H (9-20) mg/dL Glucose 167 H (74-99) mg/dL POC Glucose (mg/dL) 159 H (70-110) mg/dL HDL Cholesterol (40.00-60.00) mg/dL 03/29/22 Range/Units 11:47 Hgb (13.0-17.5) gm/dL MCHC (31.0-37.0) g/dL RDW (11.5-15.5) % Neutrophils # (1.3-7.7) k/uL Lymphocytes # (1.0-4.8) k/uL Sodium (137-145) mmol/L BUN (9-20) mg/dL Glucose (74-99) mg/dL POC Glucose (mg/dL) 271 H (70-110) mg/dL HDL Cholesterol (40.00-60.00) mg/dL Microbiology - Last 24 Hours (Table) 03/27/22 13:57 Blood Culture - Preliminary Blood No Growth after 24 hours 03/27/22 14:07 Blood Culture - Preliminary Blood No Growth after 24 hours Assessment and Plan (1) Chest pain Current Visit: Yes Status: Acute Priority: High Code(s): R07.9 - CHEST PAIN, UNSPECIFIED SNOMED Code(s): 30225553 (2) Adenocarcinoma, lung Current Visit: Yes Status: Acute Priority: High Code(s): C34.90 - MALIGNANT NEOPLASM OF UNSP PART OF UNSP BRONCHUS OR LUNG SNOMED Code(s): 585134929 (3) Compression of spinal cord Current Visit: No Status: Acute Priority: Medium Code(s): G95.20 - UNSPECIFIED CORD COMPRESSION SNOMED Code(s): 04756201 Plan: Patient presentation Cardiology consult and Pulmonary consult. He is feeling better since admission. He is being treated for pneumonia. Follow-up appointment with Medical Oncology after discharge from rehab. There are plans for immunotherapy as PDL1 was 95%. Did speak with Radiation Oncology. Patient is on their list of people to contact for follow-up appointment. attests: I preformed H&P, seen and examined patient, developed impression and plan of care. Discussed with dictator. Agree with documentation, dictated as a scribe
[2022-03-29] MEDS: LEVOFLOXACIN 750MG-D5W PMX 750 MG in DEXTROSE/WATER 1 150ML.BAG IVPB SCH (14:23)
[2022-03-29] MEDS: bisacodyL 10 MG SUPP RECTAL SCH (14:24)
[2022-03-29 16:58] LABS: Glucose,Whole Blood 175 mg/dL (70-110)
[2022-03-29 19:44] LABS: Glucose,Whole Blood 109 mg/dL (70-110)
[2022-03-29] MEDS: NA PHOS,M-B/NA PHOS,DI-BA 133 ML ENEMA RECTAL SCH (19:50)
[2022-03-29 20:30] VITALS: RESP 18
[2022-03-29] MEDS: PSYLLIUM HUSK 100% 6 GM PACKET PO SCH (20:30)
--- NOTE | 2022-03-30 03:53 | PN ---
PROGRESS NOTE SUBJECTIVE: This is a 71-year-old gentleman who was admitted with atrial fibrillation with fast ventricular rate, also had right lower pneumonia. The patient is on broad spectrum IV antibiotics. No chest pain. No palpitations. No fever. PHYSICAL EXAMINATION: VITAL SIGNS: Pulse is 85, blood pressure , respirations 16. HEENT: Conjunctivae normal. CARDIOVASCULAR: S1, S2 muffled. RESPIRATION: Breath sounds diminished at the bases. A few scattered rhonchi and crackles. ABDOMEN: Soft. NERVOUS SYSTEM: No focal deficits. LABORATORY DATA: Sodium 135. Other labs are noted. ASSESSMENT: 1. Atrial fibrillation with fast ventricular rate. 2. Right lower pneumonia, possibly gram-negative, present on admission. 3. Increased WBC. 4. History of pneumonia. 5. Chronic obstructive pulmonary disease. 6. Multiple medical issues. 7. Lung cancer with metastases, was on radiation. RECOMMENDATIONS AND DISCUSSION: . We will continue the rest of medications and antibiotics. Closely follow with Hematology/Oncology as well as Pulmonary. Prognosis guarded. Further recommendations to follow. See orders for further details. MMODL / IJN: [id number] /
[2022-03-30 06:11] LABS: Glucose,Whole Blood 77 mg/dL (70-110)
[2022-03-30] MEDS: INSULIN ASPART (NovoLOG) 100 UNIT/ML VIAL SQ SCH ×2 (06:13→12:19)
[2022-03-30] MEDS: PANTOPRAZOLE 40 MG TABLET PO SCH (06:14)
[2022-03-30] MEDS: GABAPENTIN 300 MG CAP PO SCH ×2 (06:14→13:53)
[2022-03-30] MEDS: CYCLOBENZAPRINE 10 MG TAB PO SCH ×2 (06:14→13:53)
[2022-03-30] MEDS: IPRATROPIUM-ALBUTEROL 3 ML NEB INHALATION SCH ×2 (07:41→11:39)
[2022-03-30] MEDS: METOPROLOL TARTRATE 50 MG TAB PO SCH (09:12)
[2022-03-30] MEDS: MAGNESIUM HYDROXIDE 2,400 MG/10 ML CUP PO SCH (09:12)
[2022-03-30] MEDS: APIXABAN 5 MG TAB PO SCH (09:12)
[2022-03-30] MEDS: LACTULOSE 20 GM/30 ML CUP PO SCH (09:12)
[2022-03-30] MEDS: TAMSULOSIN 0.4 MG CAP.ER.24H PO SCH (09:12)
[2022-03-30] MEDS: SENNOSIDES 8.6 MG TAB PO SCH (09:12)
[2022-03-30 09:31] VITALS: TEMP 97.6
[2022-03-30 11:47] LABS: Glucose,Whole Blood 117 mg/dL (70-110)
[2022-03-30 12:20] VITALS: BP 107/72; PULSE 102
--- NOTE | 2022-03-30 12:56 | P.PN ---
Subjective Progress Note Date: 03/30/22 Principal diagnosis: Chest pain. Pulmonary consult dated 03/28/2022. 71-year-old male who was seen in the emergency department on 03/27/2022. The patient apparently is a resident at one of the local nursing homes, and experienced chest pain and lightheadedness. He felt like he was going to pass out. Anyway, this lasted for about 20 or 30 minutes, and because of a racing he art rate, the patient was sent to the emergency room, to be evaluated. The patient smoked until 2012. Recently, he had a orthopedic procedure, and a biopsy, revealed metastatic adenocarcinoma, primary lung cancer. The patient has not received any treatment for his lung cancer as yet. Getting back to the ER visit, on March 27, the patient was made with a diagnosis of atrial fibrillation with rapid ventricular response. Currently, he's on 2 L nasal cannula. He is getting saline at 50 mL an hour. The patient had a bone biopsy done at [facility], on January 23, by the orthopedic surgeon, which revealed metastatic poorly differentiated carcinoma, consistent with pulmonary adenocarcinoma. Chest x-ray revealed possible pneumonia versus atelectasis at the right lung base. CT angiogram showed right-sided pulmonary infiltrates and consolidation, with a right pleural effusion. There is no evidence of pulmonary embolism. There is also distracted changes in the sternum which was more extensive on the study done on this admission. White count 11.8, hemoglobin 11.1, hematocrit 37.3, and platelet count 351,000. PTT is 36.3. Sodium 137, potassium 4.9, chlorides 108, CO2 22, BUN 19, and creatinine 0.81. TSH is normal. Albumin 2.9. Progress note dated 03/29/2022. 71-year-old gentleman with history of metastatic adenocarcinoma, lung primary. The patient was seen in consultation yesterday, March 28. He was seen initially in the emergency department on March 27, with chest pain, lightheadedness, and racing heart rate. Clinically, the patient's very stable today. He's on room air. He is getting saline at 20 mL an hour. He was found to have atrial fibrillation with RVR. Yesterday, he was on IV heparin but that has been discontinued. Clinically, he is not having any shortness of breath. White count 10.6, hemoglobin 11.6, hematocrit 39.7, and platelet count 310,000. Sodium 135, potassium 5, chlorides 103, CO2 25, with a BUN and creatinine of 23 and 0.75. Calcium 9.1. Blood cultures are negative. No recent chest x-ray to speak of. Progress note dated 03/30/2022. 71-year-old male again seen today in room 369. Currently, the patient is not receiving any supplemental oxygen, or IV fluids. The patient has a history of metastatic adenocarcinoma, lung primary. The patient was recently seen in consultation, because of chest pain, lightheadedness, and racing heart rate. He was found have atrial fibrillation with RVR. Currently, he is resting comfortably, without distress. No new labs today. Blood cultures are negative. No chest x-ray today. Antibiotic is discontinued. Objective - Vital Signs Vital signs: Vital Signs Temp 97.6 F 03/30/22 12:19 Pulse 102 H 03/30/22 12:19 Resp 18 03/30/22 12:19 BP 107/72 03/30/22 12:19 Pulse Ox 90 L 03/30/22 12:19 FiO2 Intake & Output 03/29/22 03/30/22 03/30/22 18:59 06:59 18:59 Intake Total 626 240 Output Total 525 550 Balance 101 -550 240 Intake: IV 150 Levofloxacin 750Mg-D5w 150 Pmx 750 mg In Dextrose/ Water 1 150ml.bag @ 100 mls/hr IVPB Q24H [facility] Rx#: [id number] Oral 476 240 Output: Urine 525 550 Other: Voiding Method Indwelling Catheter Indwelling Catheter Indwelling Catheter # Bowel Movements 0 - Exam No acute distress, oriented 3. Currently on room air. No use of accessory muscles or conversational dyspnea. Saturations are 94 %. HEENT examination is grossly unremarkable. Neck supple. Full range of motion. No adenopathy thyromegaly or neck vein distention. Cardiovascular examination reveals regular rhythm rate. S1-S2 normal. No S3 or S4. No discernible murmur noted. Heart rate 89 bpm. Lungs reveal mostly clear breath sounds. Minimal scattered rhonchi noted. No wheezes. No crackles. Breath sounds equal bilaterally. Abdomen soft bowel sounds are heard. No masses or tenderness. Extremities are intact. No cyanosis clubbing or edema. Skin is without rash or lesion. Neurologic examination is brief but nonfocal. - Labs CBC & Chem 7: 03/29/22 10:26 03/29/22 10:26 Labs: Abnormal Lab Results - Last 24 Hours (Table) 03/28/22 03/29/22 03/29/22 Range/Units 07:34 10:26 16:56 POC Glucose (mg/dL) 175 H (70-110) mg/dL Procalcitonin 0.17 H 0.12 H (0.02-0.09) ng/mL 03/30/22 Range/Units 11:45 POC Glucose (mg/dL) 117 H (70-110) mg/dL Procalcitonin (0.02-0.09) ng/mL Microbiology - Last 24 Hours (Table) 03/27/22 14:07 Blood Culture - Preliminary Blood No Growth after 48 hours 03/27/22 13:57 Blood Culture - Preliminary Blood No Growth after 48 hours Assessment and Plan Assessment: Chest pain, probably related to the patient's atrial fibrillation/RVR, or the metastatic deposit in his sternum. New onset atrial fibrillation with rapid ventricular response. Possible pneumonia right lower lobe, versus lung malignancy. Recent diagnosis of metastatic adenocarcinoma, lung primary, on T10 bone biopsy. Recent extensive back procedure, for T10 pathologic fracture, 01/23/2022. History of perforated sigmoid diverticulitis, status post colostomy and subsequent reversal. History of appendectomy. Prior history of tobacco use. Plan: Plan dated March 2022. The patient is very stable from the pulmonary standpoint. He is on 2 L of oxygen. His saturations are excellent. He is getting saline at 50 mL an hour. The patient was on IV heparin but that has been discontinued. The patient is on a factor X a inhibitor. The patient's currently on updrafts and antibiotics. Corticosteroids can be discontinued. I would check a pro-calcitonin level. I'm not sure that the patient has active infection at this time. Additional recommendations and suggestions are forthcoming. We will continue to follow along with you. Plan dated 03/29/2022. The patient is stable from the pulmonary standpoint. Saturations are excellent on room air. I did a pro-calcitonin level. I don't see on the medical record. I was hoping to discontinue his antibiotics, if the pro-calcitonin level was in the normal range. We'll have to call the lab, to find out its results. Currently, he's on Levaquin. He is also getting breathing treatments. Finally, the steroids were discontinued yesterday by myself. He did not need them. The patient has been switched from heparin to Eliquis. Plan dated 03/30/2022. The patient is currently stable from the pulmonary standpoint. He is on room air. The patient is not receiving any IV fluids. Antibiotic was discontinued. Pro-calcitonin level was 0.12. He is currently on a factor X a inhibitor. Moving forward, we will see the patient when necessary. Time with Patient: Less than 30
[2022-03-30] MEDS ORDERED: LEVOFLOXACIN 750 MG TAB PO SCH (14:00)
--- NOTE | 2022-03-30 14:11 | P.DS ---
Providers Date of admission: 03/27/22 14:07 Expected date of discharge: 03/30/22 Attending physician: Helen Vera Consults: 03/27/22 14:07 Consult Physician Urgent Consulting Provider: [facility] Consult Reason/Comments: A. fib with rapid ventricular response Do you want consulting provider notified?: Yes 03/27/22 15:13 Consult Physician Routine Consulting Provider: Jered Brand Consult Reason/Comments: PNEUMONIA Do you want consulting provider notified?: Yes 03/27/22 15:18 Consult Physician Routine Consulting Provider: Brendon Naranjo Consult Reason/Comments: malignancy, LUNG CA Do you want consulting provider notified?: Yes Primary care physician: [facility] Hospital Course: 71-year-old male who was seen in the emergency department on 03/27/2022. The patient apparently is a resident at one of the local nursing homes, and experienced chest pain and lightheadedness. He felt like he was going to pass out. Anyway, this lasted for about 20 or 30 minutes, and because of a racing heart rate, the patient was sent to the emergency room, to be evaluated. The patient smoked until 2012. Recently, he had a orthopedic procedure, and a biopsy, revealed metastatic adenocarcinoma, primary lung cancer. The patient has not received any treatment for his lung cancer as yet. Getting back to the ER visit, on March 27, the patient was made with a diagnosis of atrial fibrillation with rapid ventricular response. Currently, he's on 2 L nasal cannula. He is getting saline at 50 mL an hour. The patient had a bone biopsy done at [facility], on January 23, by the orthopedic surgeon, which revealed metastatic poorly differentiated carcinoma, consistent with pulmonary adenocarcinoma. Chest x-ray revealed possible pneumonia versus atelectasis at the right lung base. CT angiogram showed right-sided pulmonary infiltrates and consolidation, with a right pleural effusion. There is no evidence of pulmonary embolism. There is also distracted changes in the sternum which was more extensive on the study done on this admission. White count 11.8, hemoglobin 11.1, hematocrit 37.3, and platelet count 351,000. PTT is 36.3. Sodium 137, potassium 4.9, chlorides 108, CO2 22, BUN 19, and creatinine 0.81. TSH is normal. Albumin 2.9. --- He was seen initially in the emergency department on March 27, with chest pain, lightheadedness, and racing heart rate. Clinically, the patient's very stable today. He's on room air. He is getting saline at 20 mL an hour. He was found to have atrial fibrillation with RVR. Yesterday, he was on IV heparin but that has been discontinued. Clinically, he is not having any shortness of breath. White count 10.6, hemoglobin 11.6, hematocrit 39.7, and platelet count 310,000. Sodium 135, potassium 5, chlorides 103, CO2 25, with a BUN and creatinine of 23 and 0.75. Calcium 9.1. Blood cultures are negative. No recent chest x-ray to speak of. The patient is very stable from the pulmonary standpoint. He is on 2 L of oxygen. His saturations are excellent. He is getting saline at 50 mL an hour. The patient was on IV heparin but that has been discontinued. The patient is on a factor X a inhibitor. The patient's currently on updrafts and antibiotics. Corticosteroids can be discontinued. Patient was evaluated by cardiology and no further recommendations at placed; patient remains chest pain-free and heart rate remained controlled Patient is cleared for discharge from Plan - Discharge Summary Discharge Rx Participant: No New Discharge Prescriptions: New Apixaban [Eliquis] 5 mg PO BID #60 tab Continue Metoprolol Tartrate [Lopressor] 50 mg PO BID tab Gabapentin [Neurontin] 300 mg PO TID@0600,1400,2200 3 Days #9 cap Magnesium Hydroxide [Milk of Magnesia] 2,400 mg PO ONCE@0815 Na Phos,M-B/Na Phos,Di-Ba [Fleet Adult] 133 ml RECTAL ONCE@2014 Lactulose 10 gm PO BID Povidone-Iodine [Betadine] 1 applic TOPICAL HS Cyclobenzaprine [Flexeril] 10 mg PO TID@0600,1400,2200 Pantoprazole [Protonix] 40 mg PO DAILY@0600 Ipratropium-Albuterol Nebulize [Duoneb 0.5 mg-3 mg/3 ml Soln] 3 ml INHALATION RT-Q8H oxyCODONE-APAP 7.5-325MG [Percocet 7.5-325 mg] 1 tab PO Q6HR PRN 3 Days #12 tab PRN Reason: Pain bisacodyL [Dulcolax] 10 mg RECTAL ONCE@1515 Lactose-Reduced Food [Ensure Plus] 1 can PO TID@0900,1300,2100 Sennosides [Senokot] 8.6 mg PO DAILY Tamsulosin [Flomax] 0.4 mg PO DAILY Psyllium Husk 100% [Metamucil Packet] 6 gm PO HS Discharge Medication List Metoprolol Tartrate [Lopressor] 50 mg PO BID tab 01/30/22 [Rx] Cyclobenzaprine [Flexeril] 10 mg PO TID@0600,1400,2200 02/03/22 [History] Ipratropium-Albuterol Nebulize [Duoneb 0.5 mg-3 mg/3 ml Soln] 3 ml INHALATION RT-Q8H 02/03/22 [History] Pantoprazole [Protonix] 40 mg PO DAILY@0600 02/03/22 [History] Gabapentin [Neurontin] 300 mg PO TID@0600,1400,2200 3 Days #9 cap 02/06/22 [Rx] oxyCODONE-APAP 7.5-325MG [Percocet 7.5-325 mg] 1 tab PO Q6HR PRN 3 Days #12 tab 02/06/22 [Rx] Lactose-Reduced Food [Ensure Plus] 1 can PO TID@0900,1300,2100 03/27/22 [History] Lactulose 10 gm PO BID 03/27/22 [History] Magnesium Hydroxide [Milk of Magnesia] 2,400 mg PO ONCE@0803/27/22 [History] Na Phos,M-B/Na Phos,Di-Ba [Fleet Adult] 133 ml RECTAL ONCE@201403/27/22 [History] Povidone-Iodine [Betadine] 1 applic TOPICAL HS 03/27/22 [History] Psyllium Husk 100% [Metamucil Packet] 6 gm PO HS 03/27/22 [History] Sennosides [Senokot] 8.6 mg PO DAILY 03/27/22 [History] Tamsulosin [Flomax] 0.4 mg PO DAILY 03/27/22 [History] bisacodyL [Dulcolax] 10 mg RECTAL ONCE@1515 03/27/22 [History] Apixaban [Eliquis] 5 mg PO BID #60 tab 03/28/22 [Rx] Follow up Appointment(s)/Referral(s): Juan J Chua MD [STAFF PHYSICIAN] - 2 Weeks Adela Strickland MD [STAFF PHYSICIAN] - 2 Weeks None,Stated [REFERRING] - 1-2 days Patient Instructions/Handouts: Safe Use of Anticoagulants (DC) Discharge Disposition: HOME SELF-CARE
--- NOTE | 2022-03-30 18:14 | P.PN ---
Subjective Progress Note Date: 03/30/22 Oxygen saturation was documented at 90%, discussed with Nurse Sofya to confirm as he appears to be saturating 98-100%. The plan is for discharge today to [facility] so discussed with nursing that if he is truly more hypoxia we should further evaluate, she stated she is with another patient and will re-evaluate after. Objective - Vital Signs Vital signs: Vital Signs Temp 97.6 F 03/30/22 12:19 Pulse 102 H 03/30/22 12:19 Resp 18 03/30/22 12:19 BP 107/72 03/30/22 12:19 Pulse Ox 90 L 03/30/22 12:19 FiO2 Intake & Output 03/29/22 03/30/22 03/30/22 18:59 06:59 18:59 Intake Total 626 240 Output Total 525 550 Balance 101 -550 240 Intake: IV 150 Levofloxacin 750Mg-D5w 150 Pmx 750 mg In Dextrose/ Water 1 150ml.bag @ 100 mls/hr IVPB Q24H [facility] Rx#: [id number] Oral 476 240 Output: Urine 525 550 Other: Voiding Method Indwelling Catheter Indwelling Catheter Indwelling Catheter # Bowel Movements 0 - Exam - Constitutional General appearance: Present: average body habitus, cooperative, no acute distress - EENT Eyes: Present: anicteric sclerae, EOMI ENT: Present: hearing grossly normal - Respiratory Respiratory: bilateral: CTA, diminished (Bases) - Cardiovascular Rhythm: regular Abnormal Heart Sounds: Present: systolic murmur. Absent: diastolic murmur, rub, S3 Gallop, S4 Gallop, click, other - Peripheral edema leg Peripheral Edema: bilateral: None - Gastrointestinal General gastrointestinal: Present: normal bowel sounds, soft - Neurologic Neurologic: Present: CNII-XII intact (Grossly) - Musculoskeletal Musculoskeletal: Present: generalized weakness, strength equal bilaterally - Psychiatric Psychiatric: Present: A&O x's 3, appropriate affect, intact judgment & insight - Labs CBC & Chem 7: 03/29/22 10:26 03/29/22 10:26 Labs: Abnormal Lab Results - Last 24 Hours (Table) 03/28/22 03/29/22 03/29/22 Range/Units 07:34 10:26 16:56 POC Glucose (mg/dL) 175 H (70-110) mg/dL Procalcitonin 0.17 H 0.12 H (0.02-0.09) ng/mL 03/30/22 Range/Units 11:45 POC Glucose (mg/dL) 117 H (70-110) mg/dL Procalcitonin (0.02-0.09) ng/mL Microbiology - Last 24 Hours (Table) 03/27/22 14:07 Blood Culture - Preliminary Blood No Growth after 48 hours 03/27/22 13:57 Blood Culture - Preliminary Blood No Growth after 48 hours Assessment and Plan Plan: Assessment and Plan (1) Chest pain Current Visit: Yes Status: Acute Priority: High Code(s): R07.9 - CHEST PAIN, UNSPECIFIED SNOMED Code(s): 05514542 (2) Adenocarcinoma, lung Current Visit: Yes Status: Acute Priority: High Code(s): C34.90 - MAL IGNANT NEOPLASM OF UNSP PART OF UNSP BRONCHUS OR LUNG SNOMED Code(s): 254 899469 (3) Compression of spinal cord Current Visit: No Status: Acute Priority: Medium Code(s): G95.20 - UNSPECIFIED CORD COMPRESSION SNOMED Code(s): 24653539 Plan: Patient presentation Cardiology consult and Pulmonary consult. He is feeling better since admission. He is being treated for pneumonia. Follow-up appointment with Medical Oncology after discharge from rehab. There are plans for immunotherapy as PDL1 was 95%. Did speak with Radiation Oncology. Patient is on their list of people to contact for follow-up appointment. attests: I preformed H&P, seen and examined patient, developed impression and plan of care. Discussed with dictator. Agree with documentation, dictated as a scribe
== END 2022-03-30 16:19 | DRG 308 ==
LOC: EC 11:44 → 3SCARD 14:07
PROVIDERS: ADMIT Hospitalist; ATTEND Hospitalist
DX: I48.0 Paroxysmal atrial fibrillation (principal); J15.6 Pneumonia due to other Gram-negative bacteria; C79.51 Secondary malignant neoplasm of bone; J44.0 Chronic obstructive pulmonary disease with (acute) lower respiratory infection; G95.29 Other cord compression; C34.31 Malignant neoplasm of lower lobe, right bronchus or lung; J90 Pleural effusion, not elsewhere classified; I10 Essential (primary) hypertension; M84.58XD Pathological fracture in neoplastic disease, other specified site, subsequent encounter for fracture with routine healing; Z79.899 Other long term (current) drug therapy; Z87.891 Personal history of nicotine dependence; Z87.19 Personal history of other diseases of the digestive system; Z90.49 Acquired absence of other specified parts of digestive tract; Z87.01 Personal history of pneumonia (recurrent); Z88.1 Allergy status to other antibiotic agents; Z80.52 Family history of malignant neoplasm of bladder; Z80.1 Family history of malignant neoplasm of trachea, bronchus and lung; Z80.3 Family history of malignant neoplasm of breast
CPT/HCPCS: 36415; 71046; 71275; 80048; 80053; 80061; 83735; 84145; 84443; 84484; 85025; 85379; 85610; 85730; 87040; 93005; 93308; 94640; 94760; 96365; 96366; 96368; 99291

== ENCOUNTER 2022-04-02 16:02 | Inpatient (IN) | payer MEDICARE ==
[2022-04-02] MEDS ORDERED: SODIUM CHLORIDE 0.9% 1,000 ML IV ONE (16:20)
--- NOTE | 2022-04-02 16:32 | ED ---
General Adult HPI - General Chief complaint: Nausea/Vomiting/Diarrhea Stated complaint: vomiting Time Seen by Provider: 04/02/22 16:10 Source: patient, EMS, RN notes reviewed, old records reviewed Mode of arrival: EMS Limitations: altered mental status - History of Present Illness Initial comments: This is a 71-year-old male who presents emergency Department from a senior care after he vomited twice. Because the emesis was dark brown they thought maybe he was vomiting up some blood however he just had a chocolate Ensure. Patient denies any abdominal pain. Patient denies being nauseated currently. Patient denies any diarrhea. Patient denies any recent fever chills per patient denies any chest pain or difficulty breathing. - Related Data Home Medications Medication Instructions Recorded Confirmed Cyclobenzaprine [Flexeril] 10 mg PO TID@0600,1400,2200 02/03/22 04/02/22 Ipratropium-Albuterol Nebulize 3 ml INHALATION RT-Q8H 02/03/22 04/02/22 [Duoneb 0.5 mg-3 mg/3 ml Soln] Lactose-Reduced Food [Ensure Plus] 1 can PO TID@0900,1200,2100 03/27/22 04/02/22 Lactulose 10 gm PO BID 03/27/22 04/02/22 Psyllium Husk 100% [Metamucil 6 gm PO HS 03/27/22 04/02/22 Packet] Sennosides [Senokot] 8.6 mg PO DAILY 03/27/22 04/02/22 Tamsulosin [Flomax] 0.4 mg PO DAILY 03/27/22 04/02/22 Omeprazole 20 mg PO DAILY@0600 04/02/22 04/02/22 oxyCODONE-APAP 7.5-325MG [Percocet 1 tab PO Q6HR PRN 04/02/22 04/02/22 7.5-325 mg] Previous Rx's Medication Instructions Recorded Metoprolol Tartrate [Lopressor] 50 mg PO BID tab 01/30/22 Apixaban [Eliquis] 5 mg PO BID #60 tab 03/28/22 Gabapentin [Neurontin] 300 mg PO TID@0600,1400,2200 3 03/30/22 Days #9 cap Allergies Allergy/AdvReac Type Severity Reaction Status Date / Time cephalexin monohydrate Allergy Itching Verified 04/02/22 18:56 [From Keflex] Review of Systems ROS Statement: Those systems with pertinent positive or pertinent negative responses have been documented in the HPI. ROS Other: All systems not noted in ROS Statement are negative. Past Medical History Past Medical History: Cancer Additional Past Medical History / Comment(s): Patient previously had perforated sigmoid diverticulitis and had to establish colostomy which was reversed in August and has done well, back pain compression fx History of Any Multi-Drug Resistant Organisms: None Reported Past Surgical History: Appendectomy, Bowel Resection Additional Past Surgical History / Comment(s): colostomy reversed 11/19/13. Spinal surgery for cord compression from metastatic cancer Past Anesthesia/Blood Transfusion Reactions: No Reported Reaction Past Psychological History: No Psychological Hx Reported Smoking Status: Former smoker Past Alcohol Use History: Occasional Past Drug Use History: Marijuana - Past Family History Father Family Medical History: Cancer (bladder) Additional Family Medical History / Comment(s): 3 sisters, breast, kidney and lung cancer. Daughter(s) Family Medical History: Cancer (breast) General Exam - General Exam Comments Initial Comments: GENERAL: Patient is well-developed and well-nourished. Patient is nontoxic and well- hydrated and is in no acute distress. ENT: Neck is soft and supple. No significant lymphadenopathy is noted. Oropharynx is clear. Moist mucous membranes. Neck has full range of motion without eliciting any pain. EYES: The sclera were anicteric and conjunctiva were pink and moist. Extraocular movements were intact and pupils were equal round and reactive to light. Eyelids were unremarkable. PULMONARY: Unlabored respirations. Good breath sounds bilaterally. No audible rales rhonchi or wheezing was noted. CARDIOVASCULAR: There is a regular rate and rhythm without any murmurs gallops or rubs. ABDOMEN: Patient's abdomen is distended there is significant right sided tenderness with rebound. Patient has some left-sided tenderness but much more significant on the right side SKIN: Skin is clear with no lesions or rashes and otherwise unremarkable. NEUROLOGIC: Patient is alert and oriented x3. Cranial nerves II through XII are grossly intact. Motor and sensory are also intact. Normal speech, volume and content. Symmetrical smile. MUSCULOSKELETAL: Normal extremities with adequate strength and full range of motion. No lower extremity swelling or edema. No calf tenderness. LYMPHATICS: No significant lymphadenopathy is noted PSYCHIATRIC: Normal psychiatric evaluation. Limitations: altered mental status Course Vital Signs 04/02/22 04/02/22 16:11 18:23 Temperature 98.2 F Pulse Rate 105 H 101 H Respiratory 18 20 Rate Blood Pressure 133/70 137/67 O2 Sat by Pulse 92 L 96 Oximetry Medical Decision Making - Medical Decision Making Patient has an ileitis on the CAT scan of the abdomen and pelvis. Patient has a pneumonia on the x-ray of the lung. I started the patient on Zosyn. I spoke with the significant hospital stay agreed to admit the patient admitted the patient wrote admitting orders Patient was diagnosed with pneumonia and terminal ileitis at 704 pm - Lab Data Result diagrams: 04/02/22 16:48 04/02/22 16:48 Lab Results 04/02/22 04/02/22 04/02/22 Range/Units 16:48 16:48 16:48 WBC 22.3 H (3.8-10.6) k/uL RBC 4.49 (4.30-5.90) m/uL Hgb 11.5 L (13.0-17.5) gm/dL Hct 37.4 L (39.0-53.0) % MCV 83.5 D (80.0-100.0) fL MCH 25.6 (25.0-35.0) pg MCHC 30.7 L (31.0-37.0) g/dL RDW 17.1 H (11.5-15.5) % Plt Count 399 (150-450) k/uL MPV 7.8 Neutrophils % 91 % Lymphocytes % 4 % Monocytes % 3 % Eosinophils % 1 % Basophils % 0 % Neutrophils # 20.3 H (1.3-7.7) k/uL Lymphocytes # 0.8 L (1.0-4.8) k/uL Monocytes # 0.8 (0-1.0) k/uL Eosinophils # 0.2 (0-0.7) k/uL Basophils # 0.1 (0-0.2) k/uL Hypochromasia Slight Anisocytosis Slight Sodium 137 (137-145) mmol/L Potassium 4.5 (3.5-5.1) mmol/L Chloride 102 (98-107) mmol/L Carbon Dioxide 28 (22-30) mmol/L Anion Gap 7 mmol/L BUN 21 H (9-20) mg/dL Creatinine 0.80 (0.66-1.25) mg/dL Est GFR (CKD-EPI)AfAm >90 (>60 ml/min/1.73 sqM) Est GFR (CKD-EPI)NonAf >90 (>60 ml/min/1.73 sqM) Glucose 172 H (74-99) mg/dL Plasma Lactic Acid Jj 1.4 (0.7-2.0) mmol/L Calcium 9.0 (8.4-10.2) mg/dL Total Bilirubin 0.9 (0.2-1.3) mg/dL AST 22 (17-59) U/L ALT 13 (4-49) U/L Alkaline Phosphatase 95 (38-126) U/L Total Protein 6.7 (6.3-8.2) g/dL Albumin 3.0 L (3.5-5.0) g/dL Amylase 50 (30-110) U/L Lipase 35 (23-300) U/L Urine Color Urine Appearance (Clear) Urine pH (5.0-8.0) Ur Specific [place] (1.001-1.035) Urine Protein (Negative) Urine Glucose (UA) (Negative) Urine Ketones (Negative) Urine Blood (Negative) Urine Nitrite (Negative) Urine Bilirubin (Negative) Urine Urobilinogen (<2.0) mg/dL Ur Leukocyte Esterase (Negative) Urine RBC (0-5) /hpf Urine WBC (0-5) /hpf Calcium Oxalate Crystal (None) /hpf Urine Mucus (None) /hpf 04/02/22 Range/Units 19:36 WBC (3.8-10.6) k/uL RBC (4.30-5.90) m/uL Hgb (13.0-17.5) gm/dL Hct (39.0-53.0) % MCV (80.0-100.0) fL MCH (25.0-35.0) pg MCHC (31.0-37.0) g/dL RDW (11.5-15.5) % Plt Count (150-450) k/uL MPV Neutrophils % % Lymphocytes % % Monocytes % % Eosinophils % % Basophils % % Neutrophils # (1.3-7.7) k/uL Lymphocytes # (1.0-4.8) k/uL Monocytes # (0-1.0) k/uL Eosinophils # (0-0.7) k/uL Basophils # (0-0.2) k/uL Hypochromasia Anisocytosis Sodium (137-145) mmol/L Potassium (3.5-5.1) mmol/L Chloride (98-107) mmol/L Carbon Dioxide (22-30) mmol/L Anion Gap mmol/L BUN (9-20) mg/dL Creatinine (0.66-1.25) mg/dL Est GFR (CKD-EPI)AfAm (>60 ml/min/1.73 sqM) Est GFR (CKD-EPI)NonAf (>60 ml/min/1.73 sqM) Glucose (74-99) mg/dL Plasma Lactic Acid Jj (0.7-2.0) mmol/L Calcium (8.4-10.2) mg/dL Total Bilirubin (0.2-1.3) mg/dL AST (17-59) U/L ALT (4-49) U/L Alkaline Phosphatase (38-126) U/L Total Protein (6.3-8.2) g/dL Albumin (3.5-5.0) g/dL Amylase (30-110) U/L Lipase (23-300) U/L Urine Color Yellow Urine Appearance Cloudy (Clear) Urine pH 5.0 (5.0-8.0) Ur Specific [place] 1.029 (1.001-1.035) Urine Protein 1+ H (Negative) Urine Glucose (UA) Negative (Negative) Urine Ketones 1+ H (Negative) Urine Blood Large H (Negative) Urine Nitrite Negative (Negative) Urine Bilirubin Negative (Negative) Urine Urobilinogen 2.0 (<2.0) mg/dL Ur Leukocyte Esterase Moderate H (Negative) Urine RBC >182 H (0-5) /hpf Urine WBC 31 H (0-5) /hpf Calcium Oxalate Crystal Occasional H (None) /hpf Urine Mucus Moderate H (None) /hpf Disposition Clinical Impression: Ileitis, terminal, Pneumonia, Lytic lesion of bone on x-ray Disposition: [facility] Referrals: Iron Moreno MD [Primary Care Provider] - 1-2 days Time of Disposition: 19:54
[2022-04-02 16:57] LABS: Anisocytosis Slight; Basophils # (A) 0.1 k/uL (0-0.2); Basophils % (A) 0 %; Eosinophils # (A) 0.2 k/uL (0-0.7); Eosinophils % (A) 1 %; HCT 37.4 % (39.0-53.0); HGB 11.5 gm/dL (13.0-17.5); Hypochromasia Slight; Lymphocytes # (A) 0.8 k/uL (1.0-4.8); Lymphocytes % (A) 4 %; MCH 25.6 pg (25.0-35.0); MCHC 30.7 g/dL (31.0-37.0); Mean Platelet Volume 7.8; Monocytes # (A) 0.8 k/uL (0-1.0); Monocytes % (A) 3 %; Neutrophils # (A) 20.3 k/uL (1.3-7.7); Neutrophils % (A) 91 %; Platelet Count 399 k/uL (150-450); RBC 4.49 m/uL (4.30-5.90); RDW 17.1 % (11.5-15.5); WBC 22.3 k/uL (3.8-10.6)
[2022-04-02 17:06] LABS: ALT 13 U/L (4-49); AST 22 U/L (17-59); African American GFR (CKD) >90 (>60 ml/min/1.73 sqM); Alkaline Phosphatase 95 U/L (38-126); Amylase 50 U/L (30-110); Anion Gap 7 mmol/L; Blood Urea Nitrogen 21 mg/dL (9-20); Carbon Dioxide 28 mmol/L (22-30); Chloride 102 mmol/L (98-107); Glucose 172 mg/dL (74-99); Lipase 35 U/L (23-300); Non-African American GFR(CKD) >90 (>60 ml/min/1.73 sqM); Potassium 4.5 mmol/L (3.5-5.1); Sodium 137 mmol/L (137-145); Total Bilirubin 0.9 mg/dL (0.2-1.3); Total Protein 6.7 g/dL (6.3-8.2)
[2022-04-02 17:14] LABS: MCV 83.5 fL (80.0-100.0)
--- NOTE | 2022-04-02 18:19 | CT ---
EXAMINATION TYPE: CT abdomen pelvis w con CT DLP: 2875.4 mGycm, Automated exposure control for dose reduction was used. DATE OF EXAM: 04/02/2022 5:17 PM COMPARISON: CT chest dated 03/27/2022. CLINICAL INDICATION:Male, 71 years old with history of abdominal pain; Vomiting. TECHNIQUE: Axial CT of the abdomen and pelvis. Sagittal and coronal reformats were created on a [employer] workstation. Contrast used:100ml mL of Isovue 300 with IV Contrast, Oral contrast used: without Oral Contrast FINDINGS: LOWER CHEST: Moderate right pleural effusion with associated atelectasis. ABDOMEN LIVER: Unremarkable GALLBLADDER AND BILE DUCTS: Unremarkable. PANCREAS: Unremarkable. SPLEEN: Unremarkable. ADRENAL GLANDS: Unremarkable. KIDNEYS AND URETERS: No evidence of hydronephrosis or renal calculus. The ureters are unremarkable. Bilateral renal cysts. Information PELVIS BLADDER: Nondistended with Weaver catheter in place. REPRODUCTIVE: Unremarkable. ABDOMEN & PELVIS STOMACH AND BOWEL: Postsurgical changes to the mid abdominal bowel small bowel with dilation up to 3. 7 cm at the anastomotic site. There is large stool burden within the colon. Large fecaloma seen withi n the rectum measuring up to 7.8 cm. Scattered gaseous distention of the colon.. Terminal ileum circu mference or wall thickening measuring up to 7 mm fat stranding changes in the right lower quadrant. T he appendix is not definitively visualized may be surgically absent. PERITONEUM: No evidence of pneumoperitoneum or free fluid. VASCULATURE: No evidence of aortic aneurysm. Scattered atherosclerosis of the arterial vasculature. MUSCULOSKELETAL: No acute osseous abnormalities, postsurgical changes to the spine with hardware in p lace and intact. There is vertebroplasty changes also present. There is lytic lesions within the left iliac bone as well as the right iliac bone, sacrum and L3, L4 vertebral body. LYMPH NODES: No gross evidence for lymphadenopathy. SOFT TISSUE/ABDOMINAL WALL: Unremarkable IMPRESSION: 1. Terminal ileum circumferential wall thickening which may represent terminal ileitis given right l ower quadrant fat stranding changes. Additionally multiple dilated loops of small bowel are present. If this concern for small bowel obstruction consider dedicated small bowel follow-through. 2. Large stool burden throughout the colon with gaseous distention of parts of the colon as well. 3. Small bowel anastomotic dilation correlate for anastomotic stricture. 4. Scattered lytic lesions throughout the osseous structures concerning for metastatic disease, umesh elate with history of malignancy. 5. Moderate right pleural effusion which is increased in size from prior.
[2022-04-02] MEDS ORDERED: PIPERACILLIN-TAZOBACTAM 3.375 GM in SODIUM CHLORIDE 0.9% 100 ML IVPB STA (19:06)
--- NOTE | 2022-04-02 19:26 | XR ---
EXAMINATION TYPE: XR chest 2V DATE OF EXAM: 04/02/2022 7:13 PM COMPARISON: 03/27/2022. TECHNIQUE: XR chest 2V Frontal and lateral views of the chest. CLINICAL INDICATION:Male, 71 years old with history of Difficulty breathing ; FINDINGS: Lungs/Pleura: There is no evidence of pleural effusion, focal consolidation, or pneumothorax. Elevat ed right diaphragm. There is associated atelectasis in the right lung base. Pulmonary vascularity: Unremarkable. Heart/mediastinum: Cardiomediastinal silhouette is unremarkable. Musculoskeletal: No acute osseous pathology. Postsurgical changes spine hardware appears intact. IMPRESSION: Increased consolidation right lung base correlate for pneumonia.
[2022-04-02 19:52] LABS: Appearance,Urine Cloudy (Clear); Bilirubin,Urine Negative (Negative); Blood,Urine Large (Negative); Calcium Oxalate Crystals,Urine Occasional /hpf; Color,Urine Yellow; Glucose,Urine (UA) Negative (Negative); Ketones,Urine 1+ (Negative); Leukocyte Esterase,Urine Moderate (Negative); Mucus,Urine Moderate /hpf; Nitrite,Urine Negative (Negative); Protein,Urine 1+ (Negative); RBC,Urine >182 /hpf (0-5); Specific Gravity,Urine 1.029 (1.001-1.035); WBC,Urine 31 /hpf (0-5)
[2022-04-02] MEDS ORDERED: PNEUMONIA PROTOCOL UTILIZED 1 EACH MISC PO PRN (20:00)
[2022-04-02] MEDS ORDERED: AZITHROMYCIN 500 MG in SODIUM CHLORIDE 0.9% 250 ML IVPB STA (20:00)
[2022-04-03] MEDS: PIPERACILLIN-TAZOBACTAM 3.375 GM in SODIUM CHLORIDE 0.9% 100 ML IVPB SCH ×4 (03:10→23:41)
[2022-04-03] MEDS: SODIUM CHLORIDE 0.9% 1,000 ML IV SCH ×3 (08:21→20:53)
--- NOTE | 2022-04-03 08:27 | XR ---
EXAMINATION TYPE: XR chest 2V DATE OF EXAM: 04/03/2022 COMPARISON: 04/02/2022 TECHNIQUE: PA and lateral views submitted. HISTORY: Shortness of breath FINDINGS: Heart is stable in size and is postsurgical changes in alignment of vertebral column. Arthropathy eduar ulders. Right-sided consolidation and pleural effusion stable. Left lung clear. Hypertrophic changes spine. IMPRESSION: 1. Stable right lower lobe infiltrate and pleural effusion correlate for pneumonia.
[2022-04-03] MEDS ORDERED: AZITHROMYCIN 500 MG in SODIUM CHLORIDE 0.9% 250 ML IVPB SCH (09:00)
[2022-04-03] MEDS ORDERED: CYCLOBENZAPRINE 10 MG TAB PO PRN (09:38)
[2022-04-03] MEDS ORDERED: LACTULOSE 20 GM/30 ML CUP PO PRN (09:38)
[2022-04-03] MEDS ORDERED: oxyCODONE-APAP 7.5-325MG 1 EACH TAB PO PRN (09:38)
[2022-04-03] MEDS: METOPROLOL TARTRATE 50 MG TAB PO SCH ×2 (10:14→20:20)
[2022-04-03] MEDS ORDERED: bisacodyL 10 MG SUPP RECTAL STA (10:56)
--- NOTE | 2022-04-03 11:03 | P.HPIM ---
History of Present Illness Patient is an 71-year-old male came in with complaints of nausea vomiting abdominal pain and abdominal pain is nonspecific crampy in nature mostly in the upper abdomen mid upper abdomen and right upper abdomen. Patient vomiting reso lved at this time. Patient pain in the abdomen was moderate severity. Patient did have white count of 20,000. Patient has history of lung cancer. Patient was treated for right lower lobe pneumonia in month of October. Patient is found to have similar infiltrate at this time. Patient had a CT of the abdomen which showed terminal ileal circumferential thickening and concern for ileitis. Patient is constipated with last reported, possible ileus and there is a small bowel anastomotic dilatation and scattered lytic lesions throughout the osseous structures consistent with metastatic disease. Patient is bit tachycardic as well. REVIEW OF SYSTEMS: CONSTITUTIONAL: No fever, no malaise, no fatigue. HEENT: No recent visual problems or hearing problems. Denied any sore throat. CARDIOVASCULAR: No chest pain, orthopnea, PND, no palpitations, no syncope. PULMONARY: No shortness of breath, no cough, no hemoptysis. GASTROINTESTINAL: As mentioned in HPI NEUROLOGICAL: No headaches, no weakness, no numbness. HEMATOLOGICAL: Denies any bleeding or petechiae. GENITOURINARY: Denies any burning micturition, frequency, or urgency. MUSCULOSKELETAL/RHEUMATOLOGICAL: Denies any joint pain, swelling, or any muscle pain. ENDOCRINE: Denies any polyuria or polydipsia. The rest of the 14-point review of systems is negative. PHYSICAL EXAMINATION: GENERAL: The patient is alert and oriented x3, not in any acute distress. Obese HEENT: Pupils are round and equally reacting to light. EOMI. No scleral icterus. No conjunctival pallor. Normocephalic, atraumatic. No pharyngeal erythema. No t hyromegaly. CARDIOVASCULAR: S1 and S2 present. No murmurs, rubs, or gallops. PULMONARY: Chest is clear to auscultation, no wheezing or crackles. ABDOMEN: Soft, distended mild tenderness in the right upper quadrant and midabdomen tympanic. MUSCULOSKELETAL: No joint swelling or deformity. EXTREMITIES: No cyanosis, clubbing, or pedal edema. NEUROLOGICAL: Gross neurological examination did not reveal any focal deficits. SKIN: No rashes. Assessment and plan -Possible sepsis etiology is not clear intra-abdominal source or a may be recurrence of pneumonia patient had right lower lobe infiltrate which is not new and pleural effusion which is also markedly patient had lung mass. Patient was diagnosed with the metastatic adenocarcinoma was not started on chemotherapy yet. Patient was started on Zosyn and azithromycin treating for both abdominal source as well as right lower lobe pneumonia. Infectious disease and general surgery were consulted from ER. -Tachycardia probably secondary to sepsis continue with IV fluids and present antibiotics we'll cut down the fluids to 75 mL per hour -Possible ileus/constipation will order Dulcolax suppository. -Atrial fibrillation with the mild rapid unclear rate continue with anticoagulation patient was resumed on rate control medications -6 COPD without any acute exacerbation -obesity DVT prophylaxis: On Eliquis which will be continued Past Medical History Past Medical History: Cancer Additional Past Medical History / Comment(s): Patient previously had perforated sigmoid diverticulitis and had to establish colostomy which was reversed in August and has done well, back pain compression fx History of Any Multi-Drug Resistant Organisms: None Reported Past Surgical History: Appendectomy, Bowel Resection Additional Past Surgical History / Comment(s): colostomy reversed 11/19/13. Spinal surgery for cord compression from metastatic cancer Past Anesthesia/Blood Transfusion Reactions: No Reported Reaction Past Psychological History: No Psychological Hx Reported Smoking Status: Former smoker Past Alcohol Use History: Occasional Past Drug Use History: Marijuana - Past Family History Father Family Medical History: Cancer (bladder) Additional Family Medical History / Comment(s): 3 sisters, breast, kidney and lung cancer. Daughter(s) Family Medical History: Cancer (breast) Medications and Allergies Home Medications Medication Instructions Recorded Confirmed Type Metoprolol Tartrate [Lopressor] 50 mg PO BID tab 01/30/22 04/02/22 Rx Cyclobenzaprine [Flexeril] 10 mg PO TID@0600,1400,2200 02/03/22 04/02/22 History Ipratropium-Albuterol Nebulize 3 ml INHALATION RT-Q8H 02/03/22 04/02/22 History [Duoneb 0.5 mg-3 mg/3 ml Soln] Lactose-Reduced Food [Ensure Plus] 1 can PO TID@0900,1200,2100 03/27/22 04/02/22 History Lactulose 10 gm PO BID 03/27/22 04/02/22 History Psyllium Husk 100% [Metamucil 6 gm PO HS 03/27/22 04/02/22 History Packet] Sennosides [Senokot] 8.6 mg PO DAILY 03/27/22 04/02/22 History Tamsulosin [Flomax] 0.4 mg PO DAILY 03/27/22 04/02/22 History Apixaban [Eliquis] 5 mg PO BID #60 tab 03/28/22 04/02/22 Rx Gabapentin [Neurontin] 300 mg PO TID@0600,1400,2200 3 03/30/22 04/02/22 Rx Days #9 cap Omeprazole 20 mg PO DAILY@0600 04/02/22 04/02/22 History oxyCODONE-APAP 7.5-325MG [Percocet 1 tab PO Q6HR PRN 04/02/22 04/02/22 History 7.5-325 mg] Allergies Allergy/AdvReac Type Severity Reaction Status Date / Time cephalexin monohydrate Allergy Itching Verified 04/02/22 18:56 [From Keflex] Physical Exam Vitals: Vital Signs Temp Pulse Resp BP Pulse Ox 04/03/22 10:14 107 H 20 132/76 96 04/03/22 08:27 99 F 110 H 16 128/66 95 04/03/22 07:58 96 04/03/22 06:57 109 H 18 125/80 94 L 04/03/22 05:42 84 18 128/87 97 04/02/22 18:23 101 H 20 137/67 96 04/02/22 16:11 98.2 F 105 H 18 133/70 92 L Intake and Output 04/02/22 04/03/22 04/03/22 22:59 06:59 14:59 Other: Weight 127.006 kg Results CBC & Chem 7: 04/02/22 16:48 04/02/22 16:48 Labs: Abnormal Lab Results - Last 24 Hours (Table) 04/02/22 04/02/22 04/02/22 Range/Units 16:48 16:48 19:36 WBC 22.3 H (3.8-10.6) k/uL Hgb 11.5 L (13.0-17.5) gm/dL Hct 37.4 L (39.0-53.0) % MCHC 30.7 L (31.0-37.0) g/dL RDW 17.1 H (11.5-15.5) % Neutrophils # 20.3 H (1.3-7.7) k/uL Lymphocytes # 0.8 L (1.0-4.8) k/uL BUN 21 H (9-20) mg/dL Glucose 172 H (74-99) mg/dL Albumin 3.0 L (3.5-5.0) g/dL Urine Protein 1+ H (Negative) Urine Ketones 1+ H (Negative) Urine Blood Large H (Negative) Ur Leukocyte Esterase Moderate H (Negative) Urine RBC >182 H (0-5) /hpf Urine WBC 31 H (0-5) /hpf Calcium Oxalate Crystal Occasional H (None) /hpf Urine Mucus Moderate H (None) /hpf Microbiology - Last 24 Hours (Table) 04/02/22 19:36 Urine Culture - Preliminary Urine,Voided
[2022-04-03] MEDS ORDERED: NON FORMULARY DRUG (Lactose-Reduced Food [Ensure Plus] 237 ML Ml) PO SCH (12:00)
[2022-04-03] MEDS ORDERED: IOPAMIDOL CONTRAST (ORAL USE) VIAL PO PRN (12:38)
[2022-04-03] MEDS: GABAPENTIN 300 MG CAP PO SCH ×2 (14:12→20:52)
--- NOTE | 2022-04-03 16:06 | P.GSCN ---
History of Present Illness Consult date: 04/03/22 History of present illness: CHIEF COMPLAINT: Nausea and vomiting HISTORY OF PRESENT ILLNESS: This is a 71-year-old male who came into the emergency room from a correction after he vomited twice. The emesis was dark in color due to a chocolate ensure. Patient did have multiple episodes of vomiting. And had one episode of vomiting in the ER. The vomiting has reso lved. Patient complains of right-sided abdominal pain. He reports that symptoms all started yesterday. He reports that he's been having regular bowel movements. Denies any blood in the stools. 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 Patient has required spinal surgery in the past. He also has a history of A. fib on Eliquis for anticoagulation. Past surgical history includes perforated sigmoid diverticulitis with colostomy and reversal. History of bowel resection, and appendectomy. Patient reports decreased oral intake. Reports that food incre ases his pain. Patient is also being treated for possible pneumonia. Patient seen and examined with Dr. avendano PAST MEDICAL HISTORY: See list. PAST SURGICAL HISTORY: See list. MEDICATIONS: See list. ALLERGIES: See list. SOCIAL HISTORY: No illicit drug use. REVIEW OF SYSTEMS: CONSTITUTIONAL: Denies fever or chills. HEENT: Denies blurred vision, vision changes, or eye pain. Denies hemoptysis CARDIOVASCULAR: Denies chest pain or pressure. RESPIRATORY: No shortness of breath. GASTROINTESTINAL: See HPI for pertinent findings HEMATOLOGIC: Denies bleeding disorders. GENITOURINARY: Denies any blood in urine or increased urinary frequency. SKIN: Denies pruitis. Denies rash. PHYSICAL EXAM: VITAL SIGNS: Reviewed GENERAL: Well-developed in no acute distress. HEENT: No sclera icterus. Extraocular movements grossly intact. Moist buccal mucosa. Head is atraumatic, normocephalic. No nasal drainage. ABDOMEN: Soft. Nondistended. Tenderness with palpation of the right side of the abdomen Neuro: Patient is awake and able to answer questions LABORATORY DATA: WBC is 22.3 HGB 11.5 platelets are 399 Sodium 137 potassium 4.5 creatinine 0.8 Lactic acid 1.4 Lipase 35 IMAGING: Computed tomography scan abdomen and pelvis with IV contrast shows terminal ileum circumferential wall thickening which may represent terminal ileitis given right lower quadrant fat stranding changes. Additionally multiple dilated loops of small bowel are present. If this concern for small bowel obstruction consider dedicated small bowel follow-through. Large stool burden throughout the colon with gaseous distention of parts of the colon as well. Small bowel anastomotic dilation correlate for anastomotic stricture scattered lytic lesions throughout the osseous structures concerning for metastatic disease. Correlate for history of malignancy. Moderate right pleural effusion with increased in size from prior Chest x-ray stable right lower lobe infiltrate and pleural effusion correlate for pneumonia ASSESSMENT: 1. Right-sided abdominal pain with vomiting 2. Possible ileitis 3. Small bowel anastomotic dilation concerns for possible anastomotic stricture 4. Constipation 5. History of lung cancer with metastatic disease to the spine 6. Pneumonia PLAN: -Computed tomography scan abdomen and pelvis with oral contrast ordered for further evaluation of abdominal pain and concerns for possible anastomotic stricture -Downgrade diet nothing by mouth -Continue IV fluids -Medicine service has ordered duplex suppository and resume patient's home stool softeners and laxatives -Continue pain management -Further recommendations forthcoming depending on computed tomography scan results -Discontinue Eliquis for now in case patient requires surgical intervention Thank you for this consultation Physician All Around Gear Machine Operator note has been reviewed by physician. Signing provider agrees with the documented findings, assessment, and plan of care. Past Medical History Past Medical History: Cancer Additional Past Medical History / Comment(s): Patient previously had perforated sigmoid diverticulitis and had to establish colostomy which was reversed in August and has done well, back pain compression fx History of Any Multi-Drug Resistant Organisms: None Reported Past Surgical History: Appendectomy, Bowel Resection Additional Past Surgical History / Comment(s): colostomy reversed 11/19/13. Spinal surgery for cord compression from metastatic cancer Past Anesthesia/Blood Transfusion Reactions: No Reported Reaction Past Psychological History: No Psychological Hx Reported Smoking Status: Former smoker Past Alcohol Use History: Occasional Past Drug Use History: Marijuana - Past Family History Father Family Medical History: Cancer (bladder) Additional Family Medical History / Comment(s): 3 sisters, breast, kidney and lung cancer. Daughter(s) Family Medical History: Cancer (breast) Medications and Allergies Home Medications Medication Instructions Recorded Confirmed Type Metoprolol Tartrate [Lopressor] 50 mg PO BID tab 01/30/22 04/02/22 Rx Cyclobenzaprine [Flexeril] 10 mg PO TID@0600,1400,2200 02/03/22 04/02/22 History Ipratropium-Albuterol Nebulize 3 ml INHALATION RT-Q8H 02/03/22 04/02/22 History [Duoneb 0.5 mg-3 mg/3 ml Soln] Lactose-Reduced Food [Ensure Plus] 1 can PO TID@0900,1200,2100 03/27/22 04/02/22 History Lactulose 10 gm PO BID 03/27/22 04/02/22 History Psyllium Husk 100% [Metamucil 6 gm PO HS 03/27/22 04/02/22 History Packet] Sennosides [Senokot] 8.6 mg PO DAILY 03/27/22 04/02/22 History Tamsulosin [Flomax] 0.4 mg PO DAILY 03/27/22 04/02/22 History Apixaban [Eliquis] 5 mg PO BID #60 tab 03/28/22 04/02/22 Rx Gabapentin [Neurontin] 300 mg PO TID@0600,1400,2200 3 03/30/22 04/02/22 Rx Days #9 cap Omeprazole 20 mg PO DAILY@0600 04/02/22 04/02/22 History oxyCODONE-APAP 7.5-325MG [Percocet 1 tab PO Q6HR PRN 04/02/22 04/02/22 History 7.5-325 mg] Allergies Allergy/AdvReac Type Severity Reaction Status Date / Time cephalexin monohydrate Allergy Itching Verified 04/02/22 18:56 [From Keflex] Surgical - Exam Vital Signs Temp Pulse Resp BP Pulse Ox 98.2 F 105 H 18 133/70 92 L 04/02/22 16:11 04/02/22 16:11 04/02/22 16:11 04/02/22 16:11 04/02/22 16:11 Results - Labs 04/02/22 16:48 04/02/22 16:48 Abnormal Lab Results - Last 24 Hours (Table) 04/02/22 04/02/22 04/02/22 Range/Units 16:48 16:48 19:36 WBC 22.3 H (3.8-10.6) k/uL Hgb 11.5 L (13.0-17.5) gm/dL Hct 37.4 L (39.0-53.0) % MCHC 30.7 L (31.0-37.0) g/dL RDW 17.1 H (11.5-15.5) % Neutrophils # 20.3 H (1.3-7.7) k/uL Lymphocytes # 0.8 L (1.0-4.8) k/uL BUN 21 H (9-20) mg/dL Glucose 172 H (74-99) mg/dL Albumin 3.0 L (3.5-5.0) g/dL Urine Protein 1+ H (Negative) Urine Ketones 1+ H (Negative) Urine Blood Large H (Negative) Ur Leukocyte Esterase Moderate H (Negative) Urine RBC >182 H (0-5) /hpf Urine WBC 31 H (0-5) /hpf Calcium Oxalate Crystal Occasional H (None) /hpf Urine Mucus Moderate H (None) /hpf Microbiology - Last 24 Hours (Table) 04/02/22 19:36 Urine Culture - Preliminary Urine,Voided Diabetes panel 04/02/22 Range/Units 16:48 Sodium 137 (137-145) mmol/L Potassium 4.5 (3.5-5.1) mmol/L Chloride 102 (98-107) mmol/L Carbon Dioxide 28 (22-30) mmol/L BUN 21 H (9-20) mg/dL Creatinine 0.80 (0.66-1.25) mg/dL Glucose 172 H (74-99) mg/dL Calcium 9.0 (8.4-10.2) mg/dL AST 22 (17-59) U/L ALT 13 (4-49) U/L Alkaline Phosphatase 95 (38-126) U/L Total Protein 6.7 (6.3-8.2) g/dL Albumin 3.0 L (3.5-5.0) g/dL Calcium panel 04/02/22 Range/Units 16:48 Calcium 9.0 (8.4-10.2) mg/dL Albumin 3.0 L (3.5-5.0) g/dL Pituitary panel 04/02/22 Range/Units 16:48 Sodium 137 (137-145) mmol/L Potassium 4.5 (3.5-5.1) mmol/L Chloride 102 (98-107) mmol/L Carbon Dioxide 28 (22-30) mmol/L BUN 21 H (9-20) mg/dL Creatinine 0.80 (0.66-1.25) mg/dL Glucose 172 H (74-99) mg/dL Calcium 9.0 (8.4-10.2) mg/dL Adrenal panel 04/02/22 Range/Units 16:48 Sodium 137 (137-145) mmol/L Potassium 4.5 (3.5-5.1) mmol/L Chloride 102 (98-107) mmol/L Carbon Dioxide 28 (22-30) mmol/L BUN 21 H (9-20) mg/dL Creatinine 0.80 (0.66-1.25) mg/dL Glucose 172 H (74-99) mg/dL Calcium 9.0 (8.4-10.2) mg/dL Total Bilirubin 0.9 (0.2-1.3) mg/dL AST 22 (17-59) U/L ALT 13 (4-49) U/L Alkaline Phosphatase 95 (38-126) U/L Total Protein 6.7 (6.3-8.2) g/dL Albumin 3.0 L (3.5-5.0) g/dL
[2022-04-03] MEDS: IPRATROPIUM-ALBUTEROL 3 ML NEB INHALATION SCH (17:31)
--- NOTE | 2022-04-03 17:39 | CT ---
EXAMINATION TYPE: CT abdomen pelvis wo con CT DLP: 1207.1 mGycm, Automated exposure control for dose reduction was used. DATE OF EXAM: 04/03/2022 4:46 PM COMPARISON: One day prior CLINICAL INDICATION:Male, 71 years old with history of abdominal pain; TECHNIQUE: Axial CT of the abdomen and pelvis. Sagittal and coronal reformats were created on a [employer] workstation. Contrast used: None. Oral contrast used: with Oral Contrast FINDINGS: LOWER CHEST: Moderate right pleural effusion with associated atelectasis. ABDOMEN LIVER: Unremarkable GALLBLADDER AND BILE DUCTS: Unremarkable. PANCREAS: Unremarkable. SPLEEN: Unremarkable. ADRENAL GLANDS: Unremarkable. KIDNEYS AND URETERS: No evidence of hydronephrosis or renal calculus. The ureters are unremarkable. Bilateral renal cysts. Information PELVIS BLADDER: Nondistended with Weaver catheter in place. Circumference of bladder wall thickening is prese nt. REPRODUCTIVE: Unremarkable. ABDOMEN & PELVIS STOMACH AND BOWEL: Postsurgical changes to the mid abdominal bowel small bowel with dilation again th roughout the abdomen measuring up to 3.9 cm compared to 3.7 cm from one day prior at the anastomotic site. There is large stool burden within the colon. Large fecaloma seen within the rectum measuring u p to 7.8 cm. Scattered gaseous distention of the colon. Similar appearance of the terminal ileum with circumference or wall thickening measuring up to 7 mm f at stranding changes in the right lower quadrant. The appendix is not definitively visualized may be surgically absent. PERITONEUM: No evidence of pneumoperitoneum or free fluid. VASCULATURE: No evidence of aortic aneurysm. Scattered atherosclerosis of the arterial vasculature. MUSCULOSKELETAL: No acute osseous abnormalities, postsurgical changes to the spine with hardware in p lace and intact. There is vertebroplasty changes also present. There is lytic lesions within the left iliac bone as well as the right iliac bone, sacrum and L3, L4 vertebral body and ribs. LYMPH NODES: No gross evidence for lymphadenopathy. SOFT TISSUE/ABDOMINAL WALL: Unremarkable IMPRESSION: 1. Overall exam is not significantly changed in the from one day prior there is Oral contrast diseas e on this exam with contrast extending into the left abdomen. Findings are suspicious for at least pa rtial bowel obstruction possibly at the anastomotic site. Continued follow-up abdominal radiographs o f the oral contrast contrast is recommended. 2. There is persistent large stool burden throughout the colon. 3. A component of bladder wall thickening correlate with urinalysis for cystitis.
[2022-04-03] MEDS: PSYLLIUM HUSK 100% 6 GM PACKET PO SCH (20:21)
[2022-04-03] MEDS ORDERED: APIXABAN 5 MG TAB PO SCH (21:00)
--- NOTE | 2022-04-03 23:03 | P.CONS ---
History of Present Illness - Reason for Consult Consult date: 04/03/22 Pneumonia Requesting physician: Zuleyka Souza - Chief Complaint Abdominal pain x few days - History of Present Illness Patient is a 71-year-old male presenting to the hospital with right- sided abdominal pain in this patient symptom started the day before presentation to the hospital patient describes the pain to be more on the right side describing to be more of a sharp colicky almost 10 out of 10 in severity with associated nausea and vomiting did have 2 episodes of vomiting denies any diarrhea or any constipation. Denies having any chest pain or shortness of breath or cough with the symptoms the patient presented to hospital on arrival to the ER the patient was afebrile subsequently have low-grade fever of 99 F patient was tachycardic with a heart rate of 102 F patient did have white count 22.3 with a left shift creatinine has been normal with some low normal patient did have a positive UA blood cultures growing gram-positive cocci patient is currently being treated with the Zosyn and Zithromax infectious disease was consulted for further management of antibiotic therapy patient did have a CT of abdominal pelvis which did shows evidence of terminal ileum circumferential wall thickening which may represent terminal ileitis large stool burden and moderate right effusion, infectious was consulted for further management of antibiotic th erapy Review of Systems Positive point has been mentioned in the HPI rest of the systems are negative Past Medical History Past Medical History: Cancer Additional Past Medical History / Comment(s): Patient previously had perforated sigmoid diverticulitis and had to establish colostomy which was reversed in August and has done well, back pain compression fx History of Any Multi-Drug Resistant Organisms: None Reported Past Surgical History: Appendectomy, Bowel Resection Additional Past Surgical History / Comment(s): colostomy reversed 11/19/13. Spinal surgery for cord compression from metastatic cancer Past Anesthesia/Blood Transfusion Reactions: No Reported Reaction Past Psychological History: No Psychological Hx Reported Smoking Status: Former smoker Past Alcohol Use History: Occasional Past Drug Use History: Marijuana - Past Family History Father Family Medical History: Cancer (bladder) Additional Family Medical History / Comment(s): 3 sisters, breast, kidney and lung cancer. Daughter(s) Family Medical History: Cancer (breast) Medications and Allergies Home Medications Medication Instructions Recorded Confirmed Type Cyclobenzaprine [Flexeril] 10 mg PO TID@0600,1400,2200 02/03/22 04/02/22 History Ipratropium-Albuterol Nebulize 3 ml INHALATION RT-Q8H 02/03/22 04/02/22 History [Duoneb 0.5 mg-3 mg/3 ml Soln] Lactose-Reduced Food [Ensure Plus] 1 can PO TID@0900,1200,2100 03/27/22 04/02/22 History Lactulose 10 gm PO BID 03/27/22 04/02/22 History Psyllium Husk 100% [Metamucil 6 gm PO HS 03/27/22 04/02/22 History Packet] Sennosides [Senokot] 8.6 mg PO DAILY 03/27/22 04/02/22 History Tamsulosin [Flomax] 0.4 mg PO DAILY 03/27/22 04/02/22 History Apixaban [Eliquis] 5 mg PO BID #60 tab 03/28/22 04/02/22 Rx Omeprazole 20 mg PO DAILY@0600 04/02/22 04/02/22 History oxyCODONE-APAP 7.5-325MG [Percocet 1 tab PO Q6HR PRN 04/02/22 04/02/22 History 7.5-325 mg] Amoxic-Pot Clav 875-125Mg 1 tab PO Q12HR 10 Days #20 tab 04/06/22 Rx [Augmentin 875-125] Gabapentin [Neurontin] 300 mg PO TID@0600,1400,2200 3 04/06/22 Rx Days #9 cap Ipratropium-Albuterol Nebulize 3 ml INHALATION RT-Q2H PRN each 04/06/22 Rx [Duoneb 0.5 mg-3 mg/3 ml Soln] Metoprolol Tartrate [Lopressor] 50 mg PO TID tab 04/06/22 Rx oxyCODONE-APAP 7.5-325MG [Percocet 1 each PO Q6HR PRN 3 Days #12 tab 04/06/22 Rx 7.5-325 mg] Allergies Allergy/AdvReac Type Severity Reaction Status Date / Time cephalexin monohydrate Allergy Itching Verified 04/02/22 18:56 [From Keflex] Physical Exam Vitals: Vital Signs Temp Pulse Resp BP Pulse Ox 04/03/22 10:14 107 H 20 132/76 96 08/09/22 08:27 99 F 110 H 16 128/66 95 04/03/22 07:58 96 04/03/22 06:57 109 H 18 125/80 94 L 04/03/22 05:42 84 18 128/87 97 04/02/22 18:23 101 H 20 137/67 96 04/02/22 16:11 98.2 F 105 H 18 133/70 92 L Intake and Output 04/02/22 04/03/22 04/03/22 22:59 06:59 14:59 Other: Weight 127.006 kg GENERAL DESCRIPTION: Elderly male lying in bed, no distress. No tachypnea or accessory muscle of respiration use. HEENT: Shows Pallor , no scleral icterus. Oral mucous membrane is dry. No pharyngeal erythema or thrush NECK: Trachea central, no thyromegaly. LUNGS: Unlabored breathing. Decreased present the base. No wheeze or crackle. HEART: S1, S2, regular rate and rhythm. No loud murmur ABDOMEN: Soft, right lower quadrant tenderness , no guarding or rigidity, no organomegaly EXTREMITIES: No edema of feet. SKIN: No rash, no masses palpable. NEUROLOGICAL: The patient is awake, alert, oriented x3, mood and affect normal. Results CBC & Chem 7: 04/06/22 07:10 04/02/22 16:48 Labs: Abnormal Lab Results - Last 24 Hours (Table) 04/02/22 04/02/22 04/02/22 Range/Units 16:48 16:48 19:36 WBC 22.3 H (3.8-10.6) k/uL Hgb 11.5 L (13.0-17.5) gm/dL Hct 37.4 L (39.0-53.0) % MCHC 30.7 L (31.0-37.0) g/dL RDW 17.1 H (11.5-15.5) % Neutrophils # 20.3 H (1.3-7.7) k/uL Lymphocytes # 0.8 L (1.0-4.8) k/uL BUN 21 H (9-20) mg/dL Glucose 172 H (74-99) mg/dL Albumin 3.0 L (3.5-5.0) g/dL Urine Protein 1+ H (Negative) Urine Ketones 1+ H (Negative) Urine Blood Large H (Negative) Ur Leukocyte Esterase Moderate H (Negative) Urine RBC >182 H (0-5) /hpf Urine WBC 31 H (0-5) /hpf Calcium Oxalate Crystal Occasional H (None) /hpf Urine Mucus Moderate H (None) /hpf Microbiology - Last 24 Hours (Table) 04/02/22 19:36 Urine Culture - Preliminary Urine,Voided Assessment and Plan (1) Ileitis, terminal Current Visit: Yes Status: Acute Code(s): K50.00 - CROHN'S DISEASE OF SMALL INTESTINE WITHOUT COMPLICATIONS SNOMED Code(s): 093471868 Plan: 1patient presented to hospital with abdominal pain and vomiting in this patient did have evidence of abnormal CT suggestive of ileitis and partial small bowel obstruction likely etiology of his symptoms and will need to cover for the enteric gram-negative both aerobes and anaerobes. 2patient also have a positive UA with some evidence of cystitis on the CT possible enteric gram-negative pathogen. 3positive blood culture with gram-positive cocci possible staph epi and likely skin contaminant. 4patient would not have respiratory symptoms suggestive of pneumonia. 5patient to continue with the Zosyn however discontinue Zithromax. We will follow on clinical condition and cultures to further adjust medication if needed Thank you for this consultation will follow this patient along with you Time with Patient: Greater than 30
[2022-04-04] MEDS: IPRATROPIUM-ALBUTEROL 3 ML NEB INHALATION SCH ×4 (00:09→20:30)
[2022-04-04] MEDS: SODIUM CHLORIDE 0.9% 1,000 ML IV SCH ×2 (01:55→15:12)
[2022-04-04] MEDS: GABAPENTIN 300 MG CAP PO SCH ×3 (06:05→20:58)
[2022-04-04] MEDS: PANTOPRAZOLE 40 MG TABLET PO SCH (06:05)
[2022-04-04] MEDS: SENNOSIDES 8.6 MG TAB PO SCH ×2 (08:10→12:54)
[2022-04-04] MEDS: TAMSULOSIN 0.4 MG CAP.ER.24H PO SCH ×2 (08:10→12:54)
[2022-04-04] MEDS: METOPROLOL TARTRATE 50 MG TAB PO SCH ×2 (08:43→20:58)
[2022-04-04] MEDS: PIPERACILLIN-TAZOBACTAM 3.375 GM in SODIUM CHLORIDE 0.9% 100 ML IVPB SCH ×3 (08:44→23:56)
--- NOTE | 2022-04-04 15:07 | P.PN ---
Subjective Progress Note Date: 04/04/22 CHIEF COMPLAINT: Abdominal pain with vomiting HISTORY OF PRESENT ILLNESS: Patient had a repeat computed tomography scan abdomen and pelvis with oral contrast findings are suspicious for partial small bowel obstruction possibly at the anastomotic site there is large stool burden throughout the colon. And component of bladder wall thickening correlate with urinalysis for cystitis. Patient lying in bed comfortably. Pain control. No bowel movement recorded. Afebrile. tachycardia heart rate into the 150s known history of A. fib. Patient seen and examined with Dr. Elmore PHYSICAL EXAM: VITAL SIGNS: Reviewed. GENERAL: Well-developed in no acute distress. HEENT: No sclera icterus. Extraocular movements grossly intact. Moist buccal mucosa. Head is atraumatic, normocephalic. ABDOMEN: Soft. Nondistended. NEUROLOGIC: Alert and oriented. Cranial nerves II through XII grossly intact. ASSESSMENT: 1. Partial small bowel obstruction possibly at the anastomotic site 2. Possible ileitis 3. History of lung cancer with metastatic disease to the spine PLAN: -Start full liquid diet -Observe patient -Possible surgical intervention to be completed outpatient Physician Script Developer note has been reviewed by physician. Signing provider agrees with the documented findings, assessment, and plan of care. Objective - Vital Signs Vital signs: Vital Signs Temp 98.0 F 04/04/22 11:28 Pulse 98 04/04/22 11:28 Resp 14 04/04/22 11:28 BP 106/68 04/04/22 11:28 Pulse Ox 94 L 04/04/22 11:28 FiO2 Intake & Output 04/03/22 04/04/22 04/04/22 18:59 06:59 18:59 Intake Total 200 Output Total 1500 600 Balance -1500 200 -600 Weight 127.006 kg Intake: Oral 200 Output: Urine 1500 600 Other: Voiding Method Indwelling Catheter Indwelling Catheter Indwelling Catheter - Labs CBC & Chem 7: 04/02/22 16:48 04/02/22 16:48 Labs: Abnormal Lab Results - Last 24 Hours (Table) 04/04/22 04/04/22 Range/Units 06:15 06:15 C-Reactive Protein 15.40 H (0.00-0.80) mg/dL Procalcitonin 0.28 H (0.02-0.09) ng/mL Microbiology - Last 24 Hours (Table) 04/02/22 22:15 Blood Culture Gram Stain - Preliminary Blood 04/02/22 22:00 Blood Culture Gram Stain - Preliminary Blood 04/02/22 18:45 Blood Culture Gram Stain - Preliminary Blood Blood Culture - Preliminary Staphylococcus epidermidis 04/02/22 22:15 Blood Culture - Final Blood 04/02/22 19:00 Blood Culture Gram Stain - Preliminary Blood 04/02/22 19:36 Urine Culture - Final Urine,Voided 04/02/22 22:00 Blood Culture - Final Blood 04/02/22 19:00 Blood Culture - Final Blood 04/02/22 18:45 Blood Culture - Final Blood
[2022-04-04 16:01] VITALS: BMI 35.9
--- NOTE | 2022-04-04 16:36 | P.PN ---
Subjective Progress Note Date: 04/04/22 Patient is an 71-year-old male came in with complaints of nausea vomiting abdominal pain and abdominal pain is nonspecific crampy in nature mostly in the upper abdomen mid upper abdomen and right upper abdomen. Patient vomiting resolved at this time. Patient pain in the abdomen was moderate severity. Patient did have white count of 20,000. Patient has history of lung cancer. Patient was treated for right lower lobe pneumonia in month of October. Patient is found to have similar infiltrate at this time. Patient had a CT of the abdomen which showed terminal ileal circumferential thickening and concern for ileitis. Patient is constipated with last reported, possible ileus and there is a small bowel anastomotic dilatation and scattered lytic lesions throughout the osseous structures consistent with metastatic disease. Patient is bit tachycardic as well. 04/04/2022 Patient is seen and evaluated in follow-up this morning with general surgery and infectious disease following. Patient was nothing by mouth per surgery recommendations for possible ileus and is being advanced to full liquid diet. Patient reports he feels hungry and reports to passing gas but no bowel movement as of yet. Patient does have an indwelling Weaver catheter and urine culture has finalized showing no growth. Blood cultures currently pending with infectious disease following an patient is maintained on IV Zosyn. CRP is elevated at 15.4 improved calcitonin 0.28. Awaiting urinalysis culture and will follow-up with repeat labs in the morning. Patient continues to be extremely weak and physical therapy following the patient recommending ECF. Case management following and referrals have been placed as patient would like to return to [facility]. Follow- up CT abdomen shows persistent large stool burden throughout the colon and overall exam is not 66 significantly changed from previous and there is oral contrast extending into the left abdomen with findings suspicious for at least partial obstruction and possibly at the anastomotic site. Review of systems: Constitutional: No reports of fatigue, fever, or chills Cardiovascular: No reports of chest pain or palpitations Respiratory: No reports of shortness of breath or cough GI: No reports of nausea, vomiting, or diarrhea : No reports of dysuria or retention Neurovascular: No reports of weakness or numbness All medications have been reviewed PHYSICAL EXAMINATION: GENERAL: The patient is alert and oriented x3, not in any acute distress. Obese HEENT: Pupils are round and equally reacting to light. EOMI. No scleral icterus. No conjunctival pallor. Normocephalic, atraumatic. No pharyngeal erythema. No thyromegaly. CARDIOVASCULAR: S1 and S2 present. No murmurs, rubs, or gallops. PULMONARY: Chest is clear to auscultation, no wheezing or crackles. ABDOMEN: Soft, distended mild tenderness in the right upper quadrant and midabdomen tympanic. MUSCULOSKELETAL: No joint swelling or deformity. EXTREMITIES: No cyanosis, clubbing, or pedal edema. NEUROLOGICAL: Gross neurological examination did not reveal any focal deficits. SKIN: No rashes. Assessment: -Possible sepsis etiology is not clear intra-abdominal source or a may be recurrence of pneumonia patient had right lower lobe infiltrate which is not new and pleural effusion which is also markedly patient had lung mass. Patient was diagnosed with the metastatic adenocarcinoma was not started on chemotherapy yet. Patient was started on Zosyn. Infectious disease and general surgery following -Tachycardia probably secondary to sepsis -Possible ileus/constipation -Atrial fibrillation with the mild rapid ventricular rate continue with anticoagulation patient was resumed on rate control medications -COPD without any acute exacerbation -obesity with a BMI of 35.9 -DVT prophylaxis: On Eliquis which will be continued -Full code PLan: Recommend to continue current medications and management with surgery following. Abdomen pelvis CT continues to so possible small bowel obstruction at the anastomotic site with possible ileitis Monitor for any signs of bowel movements. Patient reports the passing gas with no bowel movement as of yet patient reports to feeling hungry and would like an advancement in his diet. Patient was maintained on nothing by mouth and being started on full liquid diet per surgery Patient did have some positive blood cultures with coag negative staph and staph epidermis and awaiting repeat cultures to finalize Infectious disease is following and patient is maintained on IV Zosyn and will continue for now Recommend repeat labs in a.m. PT/OT following and patient is agreeable to rehab and would like to go to [facility] with case management following. Referrals were placed and awaiting acceptance Due to multiple complex medical issues, prognosis is guarded The impression and plan of care has been dictated by Rhina Villanueva, Nurse Practitioner as directed. Dr. Ac MD I have performed a history and examination and MDM of this patient, discussed the same with the dictator, and agree with the dictator's assessment and plan as written ,documented as a scribe. Based on total visit time, I have performed more than 50% of the visit. Objective - Vital Signs Vital signs: Vital Signs Temp 97.7 F 04/04/22 04:33 Pulse 103 H 04/04/22 08:16 Resp 20 04/04/22 04:33 BP 106/72 04/04/22 05:15 Pulse Ox 93 L 04/04/22 08:06 FiO2 Intake & Output 04/03/22 04/04/22 04/04/22 18:59 06:59 18:59 Intake Total 200 Output Total 1500 600 Balance -1500 200 -600 Weight 127.006 kg Intake: Oral 200 Output: Urine 1500 600 Other: Voiding Method Indwelling Catheter Indwelling Catheter - Labs CBC & Chem 7: 04/02/22 16:48 04/02/22 16:48 Labs: Microbiology - Last 24 Hours (Table) 04/02/22 22:15 Blood Culture Gram Stain - Preliminary Blood 04/02/22 22:00 Blood Culture Gram Stain - Preliminary Blood 04/02/22 18:45 Blood Culture Gram Stain - Preliminary Blood Blood Culture - Preliminary Staphylococcus epidermidis 04/02/22 22:15 Blood Culture - Final Blood 04/02/22 19:00 Blood Culture Gram Stain - Preliminary Blood 04/02/22 19:36 Urine Culture - Final Urine,Voided 04/02/22 22:00 Blood Culture - Final Blood 04/02/22 19:00 Blood Culture - Final Blood 04/02/22 18:45 Blood Culture - Final Blood
[2022-04-04] MEDS ORDERED: IPRATROPIUM-ALBUTEROL 3 ML NEB INHALATION PRN (19:06)
[2022-04-04] MEDS: PSYLLIUM HUSK 100% 6 GM PACKET PO SCH (20:58)
[2022-04-05] MEDS: GABAPENTIN 300 MG CAP PO SCH ×4 (05:28→21:18)
[2022-04-05] MEDS: PANTOPRAZOLE 40 MG TABLET PO SCH (05:29)
[2022-04-05] MEDS: SODIUM CHLORIDE 0.9% 1,000 ML IV SCH ×2 (05:30→08:50)
[2022-04-05] MEDS: IPRATROPIUM-ALBUTEROL 3 ML NEB INHALATION SCH ×4 (08:32→19:41)
[2022-04-05] MEDS: PIPERACILLIN-TAZOBACTAM 3.375 GM in SODIUM CHLORIDE 0.9% 100 ML IVPB SCH ×3 (08:44→23:24)
[2022-04-05] MEDS: SENNOSIDES 8.6 MG TAB PO SCH (08:45)
[2022-04-05] MEDS: TAMSULOSIN 0.4 MG CAP.ER.24H PO SCH (08:45)
[2022-04-05] MEDS: METOPROLOL TARTRATE 50 MG TAB PO SCH ×3 (08:45→22:30)
[2022-04-05 09:03] LABS: Basophils # (A) 0.03 X 10*3/uL (0.00-0.10); Basophils % (A) 0.2 %; Eosinophils # (A) 0.62 X 10*3/uL (0.04-0.35); Eosinophils % (A) 4.7 %; HGB 9.6 g/dL (13.0-17.0); Immature Grans, Automated 0.8 %; Lymphocytes % (A) 9.1 %; MCH 25.5 pg (27.0-32.0); MCV 84.9 fL (80.0-97.0); Mean Platelet Volume 11.2 fL (9.5-12.2); Monocytes # (A) 0.83 X 10*3/uL (0.20-1.00); Monocytes % (A) 6.3 %; NRBC Per 100 WBC 0 /100 WBCS (0.0-0.0); Neutrophils # (A) 10.36 X 10*3/uL (1.80-7.70); Neutrophils % (A) 78.9 %; Platelet Count 353 X 10*3/uL (140-440); RBC 3.77 X 10*6/uL (4.40-5.60); WBC 13.14 X 10*3/uL (4.50-10.00)
--- NOTE | 2022-04-05 12:57 | CDI ---
Documentation Clarification Form Date: 04/05/2022 12:42:41 PM From: Leida Fletcher CCS, CCDS Admit Date: 04/02/2022 08:00:00 PM Patient Name: Yamil López Visit Number: [id number] Discharge Date: ATTENTION: The Clinical Documentation Specialists (CDI) and [facility] Coding Staff appreciate your assistance in clarifying documentation. Please respond to the clarification below the line at the bottom and electronically sign. The CDI & [facility] Coding staff will review the response and follow-up if needed. Please note: Queries are made part of the Legal Health Record. If you have any questions, please contact the author of this message via ITS. Dr. Helen Vera The patient is admitted with Sepsis with possible Ileitis and Pneumonia with right lung base consolidation and atelectasis. Was treated for Pneumonia in October. He presented from a Correction with nausea & vomiting. Additional clarification regarding the type of Pneumonia is requested. 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 Diverticulitis requiring bowel resection, Colostomy & Reversal, Spinal surgery for cord compression from metastatic cancer, Former smoker. Clinical Indicators: Presented to the ED on 04/02 via EMS with Altered mental status, nausea, vomiting.. Ileitis seen on CT of the Abdomen & Pelvis, Pneumonia on the CXR. Admit with Pneumonia and Terminal Ileitis. 04/02 VS: T 98.2, P 105, R 18, 20; BP 133/70, PO 92 RA, 96 2Lnc, BMI: 35.9 04/02 LAB: WBC 22.3, Hgb 11.5, Hct 37.4, Neutrophils 20.3, Lymphocytes 0.8; BUN 21, Glucose 172, Albumin 3.0. 04/02 Blood cultures: x5 Final: negative. x1 Preliminary: Staphylococcus Epidermidis. x1 preliminary: Coagulase Negative Staph. x3 Preliminary: Gram stain. 04/02 CXR: Increased consolidation right lung base correlate for pneumonia with associated atelectasis. 04/03 CXR: Stable right lower lobe infiltrate and pleural effusion correlate for pneumonia. Treatment 04/02: Telemetry, Infectious Disease Consult, O2 2Lnc, IV Na Chl 1,000 mls @ 999 mls/hr q1H, IV zosyn 100 mls @ 200 mls/hr x1, IV Azithromycin 250 mls @ 250 mls/hr x1, IV Na Chl 1,000 mls @ 75 mls/hr q13H. Please clarify the type of Pneumonia, if known: [ ] Aspiration Pneumonia, Due to food or vomitus [ ] Bacterial Pneumonia, specify causal organism (if known) [ ] Gram Negative Bacterial Pneumonia [ ] Other bacteria (please specify: [ ] Viral Pneumonia, specify casual organism (if known):; [ ] Other, please specify: [ ] Unable to determine (Template Last Revised: October 2020) -Right pleural effusion, pneumonia not likely Dictated By: Rhina Villanueva Signed By: <Electronically signed by Rhina MORFIN> 04/06/[id number]: Helen Vera MD Discharge Summary : [id number] [facility]
--- NOTE | 2022-04-05 15:45 | P.PN ---
Subjective Progress Note Date: 04/05/22 CHIEF COMPLAINT: Abdominal pain with vomiting HISTORY OF PRESENT ILLNESS: Surgical service following regards to patient's partial small bowel obstruction. Patient is tolerating a full liquid diet. He is having bowel movements and flatus. Denies any pain. He is lying comfortably in bed. Afebrile. WBC 22.3 down to 13.1 4H she be 9.6 platelets 353 Patient seen and examined with Dr. Elmore PHYSICAL EXAM: VITAL SIGNS: Reviewed. GENERAL: Well-developed in no acute distress. HEENT: No sclera icterus. Extraocular movements grossly intact. Moist buccal mucosa. Head is atraumatic, normocephalic. ABDOMEN: Soft. Nondistended. NEUROLOGIC: Alert and oriented. Cranial nerves II through XII grossly intact. ASSESSMENT: 1. Partial small bowel obstruction at the anastomotic site 2. Possible ileitis 3. History of lung cancer with metastatic disease to the spine PLAN: -Patient can be discharged from surgical standpoint when medically cleared -Continue on a full liquid diet after discharge until seen by surgeon -Surgical intervention to be completed outpatient Physician Client Manager note has been reviewed by physician. Signing provider agrees with the documented findings, assessment, and plan of care. Objective - Vital Signs Vital signs: Vital Signs Temp 97.5 F L 04/05/22 11:33 Pulse 90 04/05/22 12:51 Resp 17 04/05/22 11:33 BP 116/74 04/05/22 11:33 Pulse Ox 93 L 04/05/22 11:33 FiO2 Intake & Output 04/04/22 04/05/22 04/05/22 18:59 06:59 18:59 Intake Total 925 Output Total 600 Balance -600 925 Weight 127.006 kg Intake: Intake, IV Titration 925 Amount Piperacillin-Tazobactam 3 100 .375 gm In Sodium Chloride 0.9% 100 ml @ 25 mls/hr IVPB Q8HR [facility] Rx# :[id number] Sodium Chloride 0.9% 1, 825 000 ml @ 75 mls/hr IV . [id number] [facility] Rx#:[id number] Output: Urine 600 Other: Voiding Method Indwelling Catheter Indwelling Catheter Indwelling Catheter - Labs CBC & Chem 7: 04/05/22 05:47 04/02/22 16:48 Labs: Abnormal Lab Results - Last 24 Hours (Table) 04/05/22 Range/Units 05:47 WBC 13.14 H (4.50-10.00) X 10*3/uL RBC 3.77 L (4.40-5.60) X 10*6/uL Hgb 9.6 L (13.0-17.0) g/dL Hct 32.0 L (39.6-50.0) % MCH 25.5 L (27.0-32.0) pg MCHC 30.0 L (32.0-37.0) g/dL RDW 18.0 H (11.5-14.5) % Immature Gran # 0.10 H (0.00-0.04) X 10*3/uL Neutrophils # 10.36 H (1.80-7.70) X 10*3/uL Eosinophils # 0.62 H (0.04-0.35) X 10*3/uL Microbiology - Last 24 Hours (Table) 04/02/22 22:15 Blood Culture Gram Stain - Preliminary Blood Blood Culture - Preliminary Coagulase Negative Staph 04/04/22 06:15 Blood Culture - Preliminary Blood No Growth after 24 hours 04/02/22 19:00 Blood Culture Gram Stain - Preliminary Blood Blood Culture - Preliminary Coagulase Negative Staph 04/02/22 18:45 Blood Culture Gram Stain - Preliminary Blood Blood Culture - Preliminary Staphylococcus epidermidis
[2022-04-05] MEDS: APIXABAN 5 MG TAB PO SCH (19:36)
[2022-04-05] MEDS: PSYLLIUM HUSK 100% 6 GM PACKET PO SCH (19:36)
--- NOTE | 2022-04-05 19:53 | P.PN ---
Subjective Progress Note Date: 04/05/22 Patient is an 71-year-old male came in with complaints of nausea vomiting abdominal pain and abdominal pain is nonspecific crampy in nature mostly in the upper abdomen mid upper abdomen and right upper abdomen. Patient vomiting resolved at this time. Patient pain in the abdomen was moderate severity. Patient did have white count of 20,000. Patient has history of lung cancer. Patient was treated for right lower lobe pneumonia in month of October. Patient is found to have similar infiltrate at this time. Patient had a CT of the abdomen which showed terminal ileal circumferential thickening and concern for ileitis. Patient is constipated with last reported, possible ileus and there is a small bowel anastomotic dilatation and scattered lytic lesions throughout the osseous structures consistent with metastatic disease. Patient is bit tachycardic as well. 04/04/2022 Patient is seen and evaluated in follow-up this morning with general surgery and infectious disease following. Patient was nothing by mouth per surgery recommendations for possible ileus and is being advanced to full liquid diet. Patient reports he feels hungry and reports to passing gas but no bowel movement as of yet. Patient does have an indwelling Weaver catheter and urine culture has finalized showing no growth. Blood cultures currently pending with infectious disease following an patient is maintained on IV Zosyn. CRP is elevated at 15.4 improved calcitonin 0.28. Awaiting urinalysis culture and will follow-up with repeat labs in the morning. Patient continues to be extremely weak and physical therapy following the patient recommending ECF. Case management following and referrals have been placed as patient would like to return to [facility]. Follow- up CT abdomen shows persistent large stool burden throughout the colon and overall exam is not 66 significantly changed from previous and there is oral contrast extending into the left abdomen with findings suspicious for at least partial obstruction and possibly at the anastomotic site. Review of systems: Constitutional: No reports of fatigue, fever, or chills Cardiovascular: No reports of chest pain or palpitations Respiratory: No reports of shortness of breath or cough GI: No reports of nausea, vomiting, or diarrhea : No reports of dysuria or retention Neurovascular: No reports of weakness or numbness All medications have been reviewed PHYSICAL EXAMINATION: GENERAL: The patient is alert and oriented x3, not in any acute distress. Obese HEENT: Pupils are round and equally reacting to light. EOMI. No scleral icterus. No conjunctival pallor. Normocephalic, atraumatic. No pharyngeal erythema. No thyromegaly. CARDIOVASCULAR: S1 and S2 present. No murmurs, rubs, or gallops. PULMONARY: Chest is clear to auscultation, no wheezing or crackles. ABDOMEN: Soft, distended mild tenderness in the right upper quadrant and midabdomen tympanic. MUSCULOSKELETAL: No joint swelling or deformity. EXTREMITIES: No cyanosis, clubbing, or pedal edema. NEUROLOGICAL: Gross neurological examination did not reveal any focal deficits. SKIN: No rashes. Assessment: -Sepsis, present on admission, most likely intra-abdominal source or urinary tract infection, pneumonia less likely. -Right pleural effusion, pneumonia not likely. Patient also with right lung mass. Patient was diagnosed with the metastatic adenocarcinoma was not started on chemotherapy yet. -bacteremia, most likely contaminant or possibly secondary to UTI, and ID fo llowing and continued on Zosyn awaiting finalized cultures. Most recent repeat blood cultures are negative thus far for 24 hours. -Tachycardia probably secondary to sepsis -Possible ileus/constipation, improving, patient is having bowel movements, cleared by surgery to ECF and ok to resume eliquis -Atrial fibrillation with the mild rapid ventricular rate continue with anticoagulation patient was resumed on rate control medications -COPD without any acute exacerbation -obesity with a BMI of 35.9 -DVT prophylaxis: On Eliquis which will be resumed -Full code PLan: Recommend to continue current medications and management with surgery and ID following. Recommend to continue with full liquid diet per surgery recommendations OK to resume eliquis Patient did have some positive blood cultures with coag negative staph and staph epidermis and awaiting repeat cultures to finalize Infectious disease is following and patient is maintained on IV Zosyn and will continue for now,need to discuss with ID about discharge abx Recommend repeat am labs, WBC trending down and patient is afebrile. PT/OT following and patient is agreeable to rehab and would like to go to [facility] with case management following. Due to multiple complex medical issues, prognosis is guarded The impression and plan of care has been dictated by Rhina Villanueva, Nurse Practitioner as directed. Dr. Ac MD I have performed a history and examination and MDM of this patient, discussed the same with the dictator, and agree with the dictator's assessment and plan as written ,documented as a scribe. Based on total visit time, I have performed more than 50% of the visit. Objective - Vital Signs Vital signs: Vital Signs Temp 97.6 F 04/05/22 04:32 Pulse 90 04/05/22 08:42 Resp 15 04/05/22 04:32 BP 139/75 04/05/22 04:32 Pulse Ox 93 L 04/05/22 04:32 FiO2 Intake & Output 04/04/22 04/05/22 04/05/22 18:59 06:59 18:59 Intake Total 925 Output Total 600 Balance -600 925 Weight 127.006 kg Intake: Intake, IV Titration 925 Amount Piperacillin-Tazobactam 3 100 .375 gm In Sodium Chloride 0.9% 100 ml @ 25 mls/hr IVPB Q8HR [facility] Rx# :[id number] Sodium Chloride 0.9% 1, 825 000 ml @ 75 mls/hr IV . [id number] [facility] Rx#:[id number] Output: Urine 600 Other: Voiding Method Indwelling Catheter Indwelling Catheter - Labs CBC & Chem 7: 04/05/22 05:47 04/02/22 16:48 Labs: Abnormal Lab Results - Last 24 Hours (Table) 04/04/22 04/04/22 04/05/22 Range/Units 06:15 06:15 05:47 WBC 13.14 H (4.50-10.00) X 10*3/uL RBC 3.77 L (4.40-5.60) X 10*6/uL Hgb 9.6 L (13.0-17.0) g/dL Hct 32.0 L (39.6-50.0) % MCH 25.5 L (27.0-32.0) pg MCHC 30.0 L (32.0-37.0) g/dL RDW 18.0 H (11.5-14.5) % Immature Gran # 0.10 H (0.00-0.04) X 10*3/uL Neutrophils # 10.36 H (1.80-7.70) X 10*3/uL Eosinophils # 0.62 H (0.04-0.35) X 10*3/uL C-Reactive Protein 15.40 H (0.00-0.80) mg/dL Procalcitonin 0.28 H (0.02-0.09) ng/mL Microbiology - Last 24 Hours (Table) 04/04/22 06:15 Blood Culture - Preliminary Blood No Growth after 24 hours 04/02/22 19:00 Blood Culture Gram Stain - Preliminary Blood Blood Culture - Preliminary Coagulase Negative Staph 04/02/22 18:45 Blood Culture Gram Stain - Preliminary Blood Blood Culture - Preliminary Staphylococcus epidermidis 04/02/22 22:15 Blood Culture Gram Stain - Preliminary Blood 04/02/22 22:00 Blood Culture Gram Stain - Preliminary Blood
[2022-04-05] MEDS ORDERED: SODIUM CHLORIDE 0.9% 1,000 ML IV ONE ×2 (20:10→22:19)
[2022-04-06] MEDS: GABAPENTIN 300 MG CAP PO SCH ×2 (05:47→12:55)
[2022-04-06] MEDS: PANTOPRAZOLE 40 MG TABLET PO SCH (05:47)
[2022-04-06] MEDS: SODIUM CHLORIDE 0.9% 1,000 ML IV SCH (05:47)
[2022-04-06 07:51] LABS: Anisocytosis Slight; Basophils # (A) 0.1 k/uL (0-0.2); Basophils % (A) 0 %; Eosinophils # (A) 0.5 k/uL (0-0.7); Eosinophils % (A) 4 %; HCT 36.8 % (39.0-53.0); HGB 10.8 gm/dL (13.0-17.5); Hypochromasia Marked; Lymphocytes # (A) 1.1 k/uL (1.0-4.8); Lymphocytes % (A) 8 %; MCH 25.6 pg (25.0-35.0); MCHC 29.4 g/dL (31.0-37.0); MCV 87.1 fL (80.0-100.0); Mean Platelet Volume 7.9; Monocytes # (A) 0.7 k/uL (0-1.0); Monocytes % (A) 5 %; Neutrophils # (A) 10.6 k/uL (1.3-7.7); Neutrophils % (A) 81 %; Platelet Count 352 k/uL (150-450); RBC 4.22 m/uL (4.30-5.90); RDW 16.7 % (11.5-15.5)
--- NOTE | 2022-04-06 07:59 | P.PN ---
Subjective Progress Note Date: 04/04/22 Principal diagnosis: Leukocytosis/abdominal source Patient is a 71 year old male with multiple comorbidities including metastatic lung cancer also with a history of perforated sigmoid colitis requiring colostomy and subsequent reversal bowel resection and appendectomy p resented to the hospital for right-sided abdominal pain and did have elevated white count and abnormal CT suggestive ileitis and small bowel ileus. On today's evaluation that is 04/04/2022, the patient denies having any fever or any chills, the patient's accompanying of right lower abdominal pain though slightly decreased in intensity patient denies having any nausea no vomiting has been passing some gas but no bowel movement and no chest pain shortness of breath or cough Objective - Vital Signs Vital signs: Vital Signs Temp 98.0 F 04/04/22 11:28 Pulse 98 04/04/22 11:28 Resp 14 04/04/22 11:28 BP 106/68 04/04/22 11:28 Pulse Ox 94 L 04/04/22 11:28 FiO2 Intake & Output 04/03/22 04/04/22 04/04/22 18:59 06:59 18:59 Intake Total 200 Output Total 1500 600 Balance -1500 200 -600 Weight 127.006 kg Intake: Oral 200 Output: Urine 1500 600 Other: Voiding Method Indwelling Catheter Indwelling Catheter Indwelling Catheter - Exam GENERAL DESCRIPTION: An elderly male lying in bed in no distress RESPIRATORY SYSTEM: Unlabored breathing , decreased breath sounds at bases HEART: S1 S2 regular rate and rhythm , ABDOMEN: Soft , mild distention and tenderness EXTREMITIES: No edema feet - Labs CBC & Chem 7: 04/06/22 07:10 04/02/22 16:48 Labs: Abnormal Lab Results - Last 24 Hours (Table) 04/04/22 04/04/22 Range/Units 06:15 06:15 C-Reactive Protein 15.40 H (0.00-0.80) mg/dL Procalcitonin 0.28 H (0.02-0.09) ng/mL Microbiology - Last 24 Hours (Table) 04/02/22 22:15 Blood Culture Gram Stain - Preliminary Blood 04/02/22 22:00 Blood Culture Gram Stain - Preliminary Blood 04/02/22 18:45 Blood Culture Gram Stain - Preliminary Blood Blood Culture - Preliminary Staphylococcus epidermidis 04/02/22 22:15 Blood Culture - Final Blood 04/02/22 19:00 Blood Culture Gram Stain - Preliminary Blood 04/02/22 19:36 Urine Culture - Final Urine,Voided 04/02/22 22:00 Blood Culture - Final Blood 04/02/22 19:00 Blood Culture - Final Blood 04/02/22 18:45 Blood Culture - Final Blood Assessment and Plan (1) Ileitis, terminal Current Visit: Yes Status: Acute Code(s): K50.00 - CROHN'S DISEASE OF SMALL INTESTINE WITHOUT COMPLICATIONS SNOMED Code(s): 857388680 (2) Positive blood cultures Current Visit: Yes Status: Acute Code(s): R78.81 - BACTEREMIA SNOMED Code(s): 540278048 Plan: 1patient presented to hospital with abdominal pain and vomiting in this patient did have evidence of abnormal CT suggestive of ileitis and partial small bowel obstruction likely etiology of his symptoms and will need to cover for the enteric gram-negative both aerobes and anaerobes. 2patient also have a positive UA with some evidence of cystitis on the CT possible enteric gram-negative pathogen. 3positive blood culture with gram-positive cocci which has been finalized as st aph epi and likely skin contaminant. 4 patient to continue with the Zosyn and monitor clinical course closely Time with Patient: Less than 30
--- NOTE | 2022-04-06 08:00 | P.PN ---
Subjective Progress Note Date: 04/05/22 Principal diagnosis: Leukocytosis/abdominal source Patient is a 71 year old male with multiple comorbidities including metastatic lung cancer also with a history of perforated sigmoid colitis requiring colostomy and subsequent reversal bowel resection and appendectomy p resented to the hospital for right-sided abdominal pain and did have elevated white count and abnormal CT suggestive ileitis and small bowel ileus. On today's evaluation that is 04/05/2022, the patient remains to be afebrile, the is breathing comfortably, the patient right lower abdominal pain has s lightly decreased in intensity denies any nausea vomiting patient mentioned having a bowel movement, and no chest pain shortness of breath or cough Objective - Vital Signs Vital signs: Vital Signs Temp 97.5 F L 04/05/22 11:33 Pulse 90 04/05/22 12:51 Resp 17 04/05/22 11:33 BP 116/74 04/05/22 11:33 Pulse Ox 93 L 04/05/22 11:33 FiO2 Intake & Output 04/04/22 04/05/22 04/05/22 18:59 06:59 18:59 Intake Total 925 Output Total 600 Balance -600 925 Weight 127.006 kg Intake: Intake, IV Titration 925 Amount Piperacillin-Tazobactam 3 100 .375 gm In Sodium Chloride 0.9% 100 ml @ 25 mls/hr IVPB Q8HR KRISTIAN Rx# :[id number] Sodium Chloride 0.9% 1, 825 000 ml @ 75 mls/hr IV . [id number] KRISTIAN Rx#:[id number] Output: Urine 600 Other: Voiding Method Indwelling Catheter Indwelling Catheter Indwelling Catheter - Exam GENERAL DESCRIPTION: An elderly male lying in bed in no distress RESPIRATORY SYSTEM: Unlabored breathing , decreased breath sounds at bases HEART: S1 S2 regular rate and rhythm , ABDOMEN: Soft , mild distention and tenderness EXTREMITIES: No edema feet - Labs CBC & Chem 7: 04/06/22 07:10 04/02/22 16:48 Labs: Abnormal Lab Results - Last 24 Hours (Table) 04/05/22 Range/Units 05:47 WBC 13.14 H (4.50-10.00) X 10*3/uL RBC 3.77 L (4.40-5.60) X 10*6/uL Hgb 9.6 L (13.0-17.0) g/dL Hct 32.0 L (39.6-50.0) % MCH 25.5 L (27.0-32.0) pg MCHC 30.0 L (32.0-37.0) g/dL RDW 18.0 H (11.5-14.5) % Immature Gran # 0.10 H (0.00-0.04) X 10*3/uL Neutrophils # 10.36 H (1.80-7.70) X 10*3/uL Eosinophils # 0.62 H (0.04-0.35) X 10*3/uL Microbiology - Last 24 Hours (Table) 04/04/22 06:15 Blood Culture - Preliminary Blood No Growth after 24 hours 04/02/22 19:00 Blood Culture Gram Stain - Preliminary Blood Blood Culture - Preliminary Coagulase Negative Staph 04/02/22 18:45 Blood Culture Gram Stain - Preliminary Blood Blood Culture - Preliminary Staphylococcus epidermidis Assessment and Plan (1) Ileitis, terminal Current Visit: Yes Status: Acute Code(s): K50.00 - CROHN'S DISEASE OF SMALL INTESTINE WITHOUT COMPLICATIONS SNOMED Code(s): 856612113 (2) Positive blood cultures Current Visit: Yes Status: Acute Code(s): R78.81 - BACTEREMIA SNOMED Code(s): 009739997 Plan: 1patient presented to hospital with abdominal pain and vomiting in this patient did have evidence of abnormal CT suggestive of ileitis and partial small bowel obstruction likely etiology of his symptoms and will need to cover for the enteric gram-negative both aerobes and anaerobes. 2patient also have a positive UA with some evidence of cystitis on the CT possible enteric gram-negative pathogen. 3positive blood culture with gram-positive cocci which has been finalized as staph epi and likely skin contaminant, repeat blood culture had been negative so far. 4 patient seemed to have show some clinical improvement and will continue with the Zosyn , possible plan to finish therapy with oral antibiotics Time with Patient: Less than 30
[2022-04-06] MEDS: IPRATROPIUM-ALBUTEROL 3 ML NEB INHALATION SCH ×2 (08:10→11:24)
[2022-04-06] MEDS: SENNOSIDES 8.6 MG TAB PO SCH (08:22)
[2022-04-06] MEDS: METOPROLOL TARTRATE 50 MG TAB PO SCH (08:22)
[2022-04-06] MEDS: TAMSULOSIN 0.4 MG CAP.ER.24H PO SCH (08:22)
[2022-04-06] MEDS: APIXABAN 5 MG TAB PO SCH (08:22)
[2022-04-06] MEDS: PIPERACILLIN-TAZOBACTAM 3.375 GM in SODIUM CHLORIDE 0.9% 100 ML IVPB SCH (08:22)
--- NOTE | 2022-04-06 11:19 | P.CRDCN ---
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 We have been consult to see the patient for tachycardia. Patient does not follow with a distribution lineman in the office, he was previously admitted the beginning of this month and was seen by Dr. Chua. he initially came in from [facility] with nausea and vomiting. Last night patient's heart rate went up as high as 170, EKG shows patient in atrial fibrillation. His CT showed ileitis. His chest x-ray showed pneumonia. Patient examined today resting comfortably in bed, he has no complaints of increased shortness of breath or chest pain. On examination he is found to have a bilateral lower extremity edema in bilateral wheezes. Will restart patient's home Eliquis and Lopressor. Heart rate is been controlled and remains in sinus rhythm. We'll follow patient hasn't had any basis. He is cleared for discharge back to [facility] Review of Systems REVIEW OF SYSTEMS At the time of my exam: CONSTITUTIONAL: Denies fever or chills. EYES: Negative for vision changes ENT: Negative for hearing loss CARDIOVASCULAR: Denies chest pain, shortness of breath, diaphoresis, orthopnea, PND or palpitations. VASCULAR: Denies edema RESPIRATORY: Denies cough. GASTROINTESTINAL: Denies abdominal pain, diarrhea, constipation, nausea or vomiting. MUSCULOSKELETAL: Denies myalgias. NEUROLOGIC: Denies numbness, tingling, headache or weakness. ENDOCRINE: Denies fatigue, weight change, polydipsia or polyurina. GENITOURINARY: Denies burning, hematuria or urgency with micturation. HEMATOLOGIC: Denies history of anemia or bleeding. DERMATOLOGY: Denies rash or skin sores PSYCH: Negative for depression or hallucinations. Past Medical History Past Medical History: Cancer Additional Past Medical History / Comment(s): Patient previously had perforated sigmoid diverticulitis and had to establish colostomy which was reversed in August and has done well, back pain compression fx History of Any Multi-Drug Resistant Organisms: None Reported Past Surgical History: Appendectomy, Bowel Resection Additional Past Surgical History / Comment(s): colostomy reversed 11/19/13. Spinal surgery for cord compression from metastatic cancer Past Anesthesia/Blood Transfusion Reactions: No Reported Reaction Past Psychological History: No Psychological Hx Reported Smoking Status: Former smoker Past Alcohol Use History: Occasional Past Drug Use History: Marijuana - Past Family History Father Family Medical History: Cancer (bladder) Additional Family Medical History / Comment(s): 3 sisters, breast, kidney and lung cancer. Daughter(s) Family Medical History: Cancer (breast) Medications and Allergies Home Medications Medication Instructions Recorded Confirmed Type Metoprolol Tartrate [Lopressor] 50 mg PO BID tab 01/30/22 04/02/22 Rx Cyclobenzaprine [Flexeril] 10 mg PO TID@0600,1400,2200 02/03/22 04/02/22 History Ipratropium-Albuterol Nebulize 3 ml INHALATION RT-Q8H 02/03/22 04/02/22 History [Duoneb 0.5 mg-3 mg/3 ml Soln] Lactose-Reduced Food [Ensure Plus] 1 can PO TID@0900,1200,2100 03/27/22 04/02/22 History Lactulose 10 gm PO BID 03/27/22 04/02/22 History Psyllium Husk 100% [Metamucil 6 gm PO HS 03/27/22 04/02/22 History Packet] Sennosides [Senokot] 8.6 mg PO DAILY 03/27/22 04/02/22 History Tamsulosin [Flomax] 0.4 mg PO DAILY 03/27/22 04/02/22 History Apixaban [Eliquis] 5 mg PO BID #60 tab 03/28/22 04/02/22 Rx Gabapentin [Neurontin] 300 mg PO TID@0600,1400,2200 3 03/30/22 04/02/22 Rx Days #9 cap Omeprazole 20 mg PO DAILY@0600 04/02/22 04/02/22 History oxyCODONE-APAP 7.5-325MG [Percocet 1 tab PO Q6HR PRN 04/02/22 04/02/22 History 7.5-325 mg] Allergies Allergy/AdvReac Type Severity Reaction Status Date / Time cephalexin monohydrate Allergy Itching Verified 04/02/22 18:56 [From Keflex] Physical Exam Vitals: Vital Signs Temp Pulse Pulse Resp BP Pulse Ox 04/06/22 08:26 83 16 04/06/22 08:10 81 16 96 08/12/22 08:00 87 16 04/06/22 04:27 97.7 F 87 16 111/68 94 L 04/06/22 00:36 147 H 109/76 04/05/22 23:20 147 H 18 100/70 04/05/22 22:45 147 H 18 04/05/22 17:35 97.6 F 87 17 106/67 93 L 04/05/22 12:51 90 04/05/22 12:40 90 04/05/22 11:33 97.5 F L 76 17 116/74 93 L Intake and Output 04/05/22 04/06/22 04/06/22 22:59 06:59 14:59 Output Total 1000 600 Balance -1000 -600 Output: Urine 1000 600 Other: Voiding Method Indwelling Catheter Indwelling Catheter # Bowel Movements 1 PHYSICAL EXAMINATION VITAL SIGNS: Reviewed General: The patient is awake and alert, in no distress, and does not appear a cutely ill. Skin: Skin is warm and dry and no rashes or lesions are noted. Eye: Pupils are equal, round and reactive to light, extra-ocular movements are intact; there is normal conjunctiva bilaterally. Ears, nose, mouth and throat: There are moist mucous membranes and no oral lesions. Neck: The neck is supple, there is no tenderness or JVD. Cardiovascular: There is regular rate and rhythm. No murmur, rub or gallop is appreciated. Respiratory: Lungs are diminished to auscultation, wheezes throughout respirations are non-labored, breath sounds are equal. Gastrointestinal: Soft, non-distended, non-tender abdomen without masses or organomegaly noted. There is no rebound or guarding present. Bowel sounds are unremarkable. Back: There is no tenderness to palpation in the midline. There is no obvious deformity. Musculoskeletal: Normal ROM, no tenderness, There is no pedal edema. There is no calf tenderness or swelling. Extremities: Mild bilateral +1 pitting edema Vascular: Femoral pulse is normal. Posterior tibial pulses are normal .Dorsalis pedis is palpable. Neurological: CN II-XII intact. There are no obvious motor or sensory deficits. Speech is normal. Psychiatric: Cooperative, appropriate mood & affect, normal judgment Results 04/06/22 07:10 04/02/22 16:48 CBC 04/06/22 Range/Units 07:10 WBC 13.0 H (3.8-10.6) k/uL RBC 4.22 L (4.30-5.90) m/uL Hgb 10.8 L (13.0-17.5) gm/dL Hct 36.8 L (39.0-53.0) % Plt Count 352 (150-450) k/uL Current Medications Generic Name Dose Route Start Last Admin Trade Name Freq PRN Reason Stop Dose Admin Albuterol/Ipratropium 3 ml 04/04/22 20:00 04/06/22 08:10 Ipratropium-Albuterol 3 Ml Neb INHALATION 3 ml RT-TID KRISTIAN Administration Albuterol/Ipratropium 3 ml 04/04/22 19:06 Ipratropium-Albuterol 3 Ml Neb INHALATION RT-Q2H PRN Shortness Of Breath Or Wheezing Apixaban 5 mg 04/05/22 21:00 04/06/22 08:22 Apixaban 5 Mg Tab PO 5 mg BID KRISTIAN Administration Protocol Cyclobenzaprine HCl 5 mg 04/03/22 09:38 Cyclobenzaprine 10 Mg Tab PO TID@0600,1400,2200 PRN Muscle Spasm Gabapentin 300 mg 04/03/22 14:00 04/06/22 05:47 Gabapentin 300 Mg Cap PO 300 mg TID@0600,1400,2200 KRISTIAN Administration Piperacillin Sod/Tazobactam 100 mls @ 25 mls/hr 04/03/22 00:00 04/06/22 08:22 Sod 3.375 gm/ Sodium Chloride IVPB 25 mls/hr Q8HR KRISTIAN Administration Protocol Sodium Chloride 1,000 mls @ 75 mls/hr 04/02/22 20:15 04/06/22 05:47 Saline 0.9% IV 75 mls/hr .[id number] KRISTIAN Administration Lactulose 10 gm 04/03/22 09:38 Lactulose 20 Gm/30 Ml Cup PO BID PRN Constipation Metoprolol Tartrate 50 mg 04/05/22 22:30 04/06/22 08:22 Metoprolol Tartrate 50 Mg Tab PO 50 mg TID KRISTIAN Administration Miscellaneous Information 1 each 04/02/22 20:00 Pneumonia Protocol Utilized 1 Each Misc PO ONCE PRN Per Protocol Oxycodone/Acetaminophen 1 each 04/03/22 09:38 Oxycodone-Apap 7.5-325mg 1 Each Tab PO Q6HR PRN Pain Pantoprazole Sodium 40 mg 04/04/22 06:00 04/06/22 05:47 Pantoprazole 40 Mg Tablet PO 40 mg DAILY@0600 KRISTIAN Administration Psyllium Hydrophilic Mucilloid 6 gm 04/03/22 21:00 04/05/22 19:36 Psyllium Husk 100% 6 Gm Packet PO 6 gm HS KRISTIAN Administration Senna 8.6 mg 04/04/22 09:00 04/06/22 08:22 Sennosides 8.6 Mg Tab PO 8.6 mg DAILY KRISTIAN Administration Tamsulosin HCl 0.4 mg 04/04/22 09:00 04/06/22 08:22 Tamsulosin 0.4 Mg Cap.Er.24h PO 0.4 mg DAILY KRISTIAN Administration Intake and Output 04/05/22 04/06/22 04/06/22 22:59 06:59 14:59 Output Total 1000 600 Balance -1000 -600 Output: Urine 1000 600 Other: Voiding Method Indwelling Catheter Indwelling Catheter # Bowel Movements 1 04/06/22 07:10 04/02/22 16:48 Assessment and Plan Assessment: Proximal atrial fibrillation with RVR Acute pneumonia Plan: Continue with Eliquis and Lopressor Continue with all other current cardiac medications Patient will be followed by cardiology on an as-needed basis He is cleared for discharge to [facility] The above impression and plan of care have been discussed and directed by the signing physician. Lilly Rodriguez, nurse practitioner, acting as scribe for signing physician.
[2022-04-06 11:26] VITALS: RESP 18
--- NOTE | 2022-04-06 12:00 | P.PN ---
Subjective Progress Note Date: 04/06/22 Principal diagnosis: Partial small bowel obstruction Patient doing better today. Tolerating full liquids. Denies abdominal pain. States he still feels bloated. No nausea or vomiting. Objective - Vital Signs Vital signs: Vital Signs Temp 97.7 F 04/06/22 04:27 Pulse 82 04/06/22 11:34 Resp 18 04/06/22 11:34 BP 111/68 04/06/22 04:27 Pulse Ox 96 04/06/22 08:10 FiO2 Intake & Output 04/05/22 04/06/22 04/06/22 18:59 06:59 18:59 Output Total 100 1500 Balance -100 -1500 Output: Urine 100 1500 Other: Voiding Method Indwelling Catheter Indwelling Catheter Indwelling Catheter # Bowel Movements 1 - Exam Abdomen: Soft, mild distention, nontender - Labs CBC & Chem 7: 04/06/22 07:10 04/02/22 16:48 Labs: Abnormal Lab Results - Last 24 Hours (Table) 04/06/22 Range/Units 07:10 WBC 13.0 H (3.8-10.6) k/uL RBC 4.22 L (4.30-5.90) m/uL Hgb 10.8 L (13.0-17.5) gm/dL Hct 36.8 L (39.0-53.0) % MCHC 29.4 L (31.0-37.0) g/dL RDW 16.7 H (11.5-15.5) % Neutrophils # 10.6 H (1.3-7.7) k/uL Microbiology - Last 24 Hours (Table) 04/04/22 06:15 Blood Culture - Preliminary Blood No Growth after 48 hours 04/02/22 19:00 Blood Culture Gram Stain - Final Blood Blood Culture - Final Staphylococcus epidermidis 04/02/22 18:45 Blood Culture Gram Stain - Final Blood Blood Culture - Final Staphylococcus epidermidis 04/02/22 22:15 Blood Culture Gram Stain - Preliminary Blood Blood Culture - Preliminary Coagulase Negative Staph Assessment and Plan (1) Ileitis, terminal Narrative/Plan: 71-year-old male with small bowel obstruction and terminal ileitis. Continue full liquids. Ambulate. Monitor abdominal distention. Current Visit: Yes Status: Acute Code(s): K50.00 - CROHN'S DISEASE OF SMALL INTESTINE WITHOUT COMPLICATIONS SNOMED Code(s): 916826064
[2022-04-06 12:27] VITALS: BP 102/77; PULSE 78; TEMP 97.9
--- NOTE | 2022-04-06 12:56 | P.DS ---
Providers Date of admission: 04/02/22 20:00 Expected date of discharge: 04/06/22 Attending physician: Helen Vera Consults: 04/02/22 20:00 Consult Physician Routine Consulting Provider: Harshil Elmore Consult Reason/Comments: Terminal ileitis Do you want consulting provider notified?: Yes 04/03/22 09:43 Consult Physician Routine Consulting Provider: Cheyenne Cheung Consult Reason/Comments: Pneumonia Do you want consulting provider notified?: Yes 04/06/22 00:06 Consult Physician Stat Consulting Provider: [facility] Consult Reason/Comments: sinus tachycardia Do you want consulting provider notified?: Yes Primary care physician: Iron Moreno Hospital Course: Final Diagnosis -Sepsis, present on admission, most likely urinary tract infection, pneumonia less likely. -Right pleural effusion, pneumonia not likely. Patient also with right lung mass. Patient was diagnosed with the metastatic adenocarcinoma was not started on chemotherapy yet. -bacteremia, most likely contaminant or possibly secondary to UTI, Most recent repeat blood cultures are negative -Tachycardia probably secondary to sepsis -Possible ileus/constipation, improved -Atrial fibrillation with the mild rapid ventricular rate continue with anticoagulation patient was resumed on rate control medications -COPD without any acute exacerbation -obesity with a BMI of 35.9 -DVT prophylaxis -Full code Discharge disposition Patient is being discharged in a stable condition with guarded prognosis to [facility]. Patient will follow-up with in the outpatient setting upon discharge. Patient is to continue with oral augmentin bid for the next 10 days. Patient needs cardiology and oncology follow up outpatient. Total time taken is greater than 35 minutes. Hospital course Patient is an 71-year-old male came in with complaints of nausea vomiting abdominal pain and abdominal pain is nonspecific crampy in nature mostly in the upper abdomen mid upper abdomen and right upper abdomen. Patient vomiting resolved at this time. Patient pain in the abdomen was moderate severity. Patient did have white count of 20,000. Patient has history of lung cancer. Patient was treated for right lower lobe pneumonia in month of October. Patient is found to have similar infiltrate at this time. Patient had a CT of the abdomen which showed terminal ileal circumferential thickening and concern for ileitis. Patient is constipated with last reported, possible ileus and there is a small bowel anastomotic dilatation and scattered lytic lesions throughout the osseous structures consistent with metastatic disease. Patient is bit tachycardic as well. Patient was seen and evaluated by surgery and recommend to continue with full liquids and current bowel regimen. Patient is having bowel movements. Most recent blood cultures are negative and will continue on oral augmentin bid for 10 days. Patient needs cardiology and oncology follow up outpatient. Currently no reports of chest pain, shortness of breath, or palpitations. Patient is afebrile. No reports of nausea or vomiting and patient is tolerating diet. Patient will be discharged to [facility] on the [place] today. Guarded prognosis. High risk for readmissions. On exam vital signs are stable. Cardio S1, S2 are muffled. Respiratory system shows diminished breath sounds at the bases with no wheezing or rhonchi noted. Abdomen is soft, obese, and nontender. Nervous system shows diffuse weakness. Please refer to medication reconciliation sheet for a list of medications. The impression and plan of care has been dictated by Rhina Villanueva, Nurse Practitioner as directed. Dr. Ac MD I have performed a history and examination and MDM of this patient, discussed the same with the dictator, and agree with the dictator's assessment and plan as written ,documented as a scribe. Based on total visit time, I have performed more than 50% of the visit. Patient Condition at Discharge: Fair Plan - Discharge Summary Discharge Rx Participant: No New Discharge Prescriptions: New Amoxic-Pot Clav 875-125Mg [Augmentin 875-125] 1 tab PO Q12HR 10 Days #20 tab Ipratropium-Albuterol Nebulize [Duoneb 0.5 mg-3 mg/3 ml Soln] 3 ml INHALATION RT-Q2H PRN each PRN Reason: Shortness Of Breath Or Wheezing Metoprolol Tartrate [Lopressor] 50 mg PO TID tab Continue Lactulose 10 gm PO BID Apixaban [Eliquis] 5 mg PO BID #60 tab Cyclobenzaprine [Flexeril] 10 mg PO TID@0600,1400,2200 Ipratropium-Albuterol Nebulize [Duoneb 0.5 mg-3 mg/3 ml Soln] 3 ml INHALATION RT-Q8H Lactose-Reduced Food [Ensure Plus] 1 can PO TID@0900,1200,2100 Sennosides [Senokot] 8.6 mg PO DAILY Tamsulosin [Flomax] 0.4 mg PO DAILY Psyllium Husk 100% [Metamucil Packet] 6 gm PO HS Gabapentin [Neurontin] 300 mg PO TID@0600,1400,2200 3 Days #9 cap oxyCODONE-APAP 7.5-325MG [Percocet 7.5-325 mg] 1 tab PO Q6HR PRN PRN Reason: Pain Omeprazole 20 mg PO DAILY@0600 Discontinued Metoprolol Tartrate [Lopressor] 50 mg PO BID tab Discharge Medication List Cyclobenzaprine [Flexeril] 10 mg PO TID@0600,1400,2200 02/03/22 [History] Ipratropium-Albuterol Nebulize [Duoneb 0.5 mg-3 mg/3 ml Soln] 3 ml INHALATION RT-Q8H 02/03/22 [History] Lactose-Reduced Food [Ensure Plus] 1 can PO TID@0900,1200,2100 03/27/22 [History] Lactulose 10 gm PO BID 03/27/22 [History] Psyllium Husk 100% [Metamucil Packet] 6 gm PO HS 03/27/22 [History] Sennosides [Senokot] 8.6 mg PO DAILY 03/27/22 [History] Tamsulosin [Flomax] 0.4 mg PO DAILY 03/27/22 [History] Apixaban [Eliquis] 5 mg PO BID #60 tab 03/28/22 [Rx] Gabapentin [Neurontin] 300 mg PO TID@0600,1400,2200 3 Days #9 cap 03/30/22 [Rx] Omeprazole 20 mg PO DAILY@0600 04/02/22 [History] oxyCODONE-APAP 7.5-325MG [Percocet 7.5-325 mg] 1 tab PO Q6HR PRN 04/02/22 [History] Amoxic-Pot Clav 875-125Mg [Augmentin 875-125] 1 tab PO Q12HR 10 Days #20 tab 04/06/22 [Rx] Ipratropium-Albuterol Nebulize [Duoneb 0.5 mg-3 mg/3 ml Soln] 3 ml INHALATION RT-Q2H PRN each 04/06/22 [Rx] Metoprolol Tartrate [Lopressor] 50 mg PO TID tab 04/06/22 [Rx] Follow up Appointment(s)/Referral(s): Iron Mroeno MD [Primary Care Provider] - 1-2 days Harshil Elmore MD [STAFF PHYSICIAN] - 1 Week Activity/Diet/Wound Care/Special Instructions: Continue on a full liquid diet until seen by surgeon
--- NOTE | 2022-04-06 16:29 | P.PN ---
Subjective Progress Note Date: 04/06/22 Principal diagnosis: Leukocytosis/abdominal source Patient is a 71 year old male with multiple comorbidities including metastatic lung cancer also with a history of perforated sigmoid colitis requiring colostomy and subsequent reversal bowel resection and appendectomy p resented to the hospital for right-sided abdominal pain and did have elevated white count and abnormal CT suggestive ileitis and small bowel ileus. On today's evaluation that is 04/06/2022, the patient denies any fever or any chills, the is breathing comfortably on room air, the patient right lower abdominal pain has decreased in intensity, the patient denies any nausea vomiting patient mentioned having a bowel movement, and no chest pain shortness of breath or cough Objective - Vital Signs Vital signs: Vital Signs Temp 97.7 F 04/06/22 04:27 Pulse 82 04/06/22 11:34 Resp 18 04/06/22 11:34 BP 111/68 04/06/22 04:27 Pulse Ox 96 04/06/22 08:10 FiO2 Intake & Output 04/05/22 04/06/22 04/06/22 18:59 06:59 18:59 Output Total 100 1500 Balance -100 -1500 Output: Urine 100 1500 Other: Voiding Method Indwelling Catheter Indwelling Catheter Indwelling Catheter # Bowel Movements 1 - Exam GENERAL DESCRIPTION: An elderly male lying in bed in no distress RESPIRATORY SYSTEM: Unlabored breathing , decreased breath sounds at bases HEART: S1 S2 regular rate and rhythm , ABDOMEN: Soft , mild distention and tenderness EXTREMITIES: No edema feet - Labs CBC & Chem 7: 04/06/22 07:10 04/02/22 16:48 Labs: Abnormal Lab Results - Last 24 Hours (Table) 04/06/22 Range/Units 07:10 WBC 13.0 H (3.8-10.6) k/uL RBC 4.22 L (4.30-5.90) m/uL Hgb 10.8 L (13.0-17.5) gm/dL Hct 36.8 L (39.0-53.0) % MCHC 29.4 L (31.0-37.0) g/dL RDW 16.7 H (11.5-15.5) % Neutrophils # 10.6 H (1.3-7.7) k/uL Microbiology - Last 24 Hours (Table) 04/04/22 06:15 Blood Culture - Preliminary Blood No Growth after 48 hours 04/02/22 19:00 Blood Culture Gram Stain - Final Blood Blood Culture - Final Staphylococcus epidermidis 04/02/22 18:45 Blood Culture Gram Stain - Final Blood Blood Culture - Final Staphylococcus epidermidis 04/02/22 22:15 Blood Culture Gram Stain - Preliminary Blood Blood Culture - Preliminary Coagulase Negative Staph Assessment and Plan (1) Ileitis, terminal Current Visit: Yes Status: Acute Code(s): K50.00 - CROHN'S DISEASE OF SMALL INTESTINE WITHOUT COMPLICATIONS SNOMED Code(s): 195965802 (2) Positive blood cultures Current Visit: Yes Status: Acute Code(s): R78.81 - BACTEREMIA SNOMED Code(s): 799324414 Plan: 1patient presented to hospital with abdominal pain and vomiting in this patient did have evidence of abnormal CT suggestive of ileitis and partial small bowel obstruction likely etiology of his symptoms and will need to cover for the enteric gram-negative both aerobes and anaerobes. 2patient also have a positive UA with some evidence of cystitis on the CT possible enteric gram-negative pathogen. 3positive blood culture with gram-positive cocci which has been finalized as staph epi and likely skin contaminant, repeat blood culture had been negative so far. 4 patient has shown clinical improvement with the Zosyn, with plan to finish therapy with oral Augmentin 7-10 days and a close outpatient follow-up Time with Patient: Less than 30
== END 2022-04-06 17:30 | DRG 872 ==
LOC: EC 16:02 → 4SSUR 20:00 → 5NMEDONC 04-03 14:07
PROVIDERS: ADMIT Hospitalist; ATTEND Hospitalist
DX: A41.9 Sepsis, unspecified organism (principal); C79.51 Secondary malignant neoplasm of bone; C34.31 Malignant neoplasm of lower lobe, right bronchus or lung; K50.012 Crohn's disease of small intestine with intestinal obstruction; K56.600 Partial intestinal obstruction, unspecified as to cause; J90 Pleural effusion, not elsewhere classified; Z87.891 Personal history of nicotine dependence; E66.9 Obesity, unspecified; I10 Essential (primary) hypertension; I48.0 Paroxysmal atrial fibrillation; Z79.01 Long term (current) use of anticoagulants; J44.9 Chronic obstructive pulmonary disease, unspecified; N30.90 Cystitis, unspecified without hematuria; K59.00 Constipation, unspecified; Z68.35 Body mass index [BMI] 35.0-35.9, adult; Z79.899 Other long term (current) drug therapy; Z80.1 Family history of malignant neoplasm of trachea, bronchus and lung; Z80.52 Family history of malignant neoplasm of bladder; Z90.49 Acquired absence of other specified parts of digestive tract; Z80.3 Family history of malignant neoplasm of breast; Z80.51 Family history of malignant neoplasm of kidney; Z88.1 Allergy status to other antibiotic agents
CPT/HCPCS: 36415; 71046; 74176; 74177; 80053; 81001; 82150; 83605; 83690; 84145; 85025; 86140; 87040; 87077; 87086; 87186; 93005; 94640; 94760; 99285

== ENCOUNTER 2022-04-09 12:48 | Inpatient (IN) | payer MEDICARE ==
[2022-04-09] MEDS ORDERED: SODIUM CHLORIDE 0.9% 1,000 ML IV ONE (13:17)
[2022-04-09] MEDS ORDERED: fentaNYL (PF) 50 MCG/ML 2 ML AMP IVP STA (13:32)
[2022-04-09] MEDS ORDERED: ONDANSETRON 4 MG/2 ML VIAL IVP STA (13:37)
[2022-04-09 13:40] LABS: Anisocytosis Slight; Basophils # (A) 0.1 k/uL (0-0.2); Basophils % (A) 1 %; Eosinophils # (A) 0.1 k/uL (0-0.7); Eosinophils % (A) 0 %; HCT 39.8 % (39.0-53.0); HGB 12.2 gm/dL (13.0-17.5); Hypochromasia Moderate; Lymphocytes # (A) 2.1 k/uL (1.0-4.8); Lymphocytes % (A) 10 %; MCH 25.7 pg (25.0-35.0); MCHC 30.7 g/dL (31.0-37.0); MCV 83.6 fL (80.0-100.0); Mean Platelet Volume 8.2; Monocytes # (A) 0.8 k/uL (0-1.0); Monocytes % (A) 4 %; Neutrophils # (A) 16.8 k/uL (1.3-7.7); Neutrophils % (A) 83 %; Platelet Count 480 k/uL (150-450); RBC 4.76 m/uL (4.30-5.90); RDW 17.1 % (11.5-15.5); WBC 20.2 k/uL (3.8-10.6)
--- NOTE | 2022-04-09 13:44 | ED ---
General Adult HPI - General Chief complaint: Altered Mental Status Stated complaint: elevated heart rate Time Seen by Provider: 04/09/22 13:10 Source: patient, EMS, RN notes reviewed, old records reviewed Mode of arrival: EMS Limitations: altered mental status, physical limitation - History of Present Illness Initial comments: She is a 71-year-old male with past medical history remarkable for cancer, atrial fibrillation on eliquis, previously perforated sigmoid diverticulitis and colostomy reversal, chronic back pain secondary to compression fracture, fu catheter dependent who presents emergency Department complaining of altered mental status. Patient had one episode of emesis earlier today, and is normally alert and oriented 3-4. Currently is alert and oriented 2-3. Is complaining of abdominal pain. Fu bag was empty when he arrived, nursing staff was able to flush it and had a large amount of urine output initially. Patient is tender in the suprapubic region. Suspect there may have been an obstructed Fu causing this. Difficult to obtain a bladder scan secondary to a large amount of subcutaneous tissue and obesity. Has no other acute complaints other than the episode of nausea as well as abdominal pain earlier. He is uncertain where he is, but does know the year as well as person. His no other acute complaints at this time. Presents for further evaluation. Denies chest pain, shortness breath, fevers, chills, cough. - Related Data Home Medications Medication Instructions Recorded Confirmed Cyclobenzaprine [Flexeril] 10 mg PO TID@0600,1400,2200 02/03/22 04/09/22 Ipratropium-Albuterol Nebulize 3 ml INHALATION RT-Q8H 02/03/22 04/09/22 [Duoneb 0.5 mg-3 mg/3 ml Soln] Lactulose 10 gm PO BID 03/27/22 04/09/22 Psyllium Husk 100% [Metamucil 6 gm PO HS 03/27/22 04/09/22 Packet] Sennosides [Senokot] 8.6 mg PO DAILY 03/27/22 04/09/22 Tamsulosin [Flomax] 0.4 mg PO DAILY 03/27/22 04/09/22 Omeprazole 20 mg PO DAILY@0600 04/02/22 04/09/22 oxyCODONE-APAP 7.5-325MG [Percocet 1 tab PO Q6HR PRN 04/02/22 04/09/22 7.5-325 mg] Metoprolol Tartrate [Lopressor] 50 mg PO TID@0800,1400,2200 04/09/22 04/09/22 Previous Rx's Medication Instructions Recorded Apixaban [Eliquis] 5 mg PO BID #60 tab 03/28/22 Amoxic-Pot Clav 875-125Mg 1 tab PO Q12HR 10 Days #20 tab 04/06/22 [Augmentin 875-125] Gabapentin [Neurontin] 300 mg PO TID@0600,1400,2200 3 04/06/22 Days #9 cap Allergies Allergy/AdvReac Type Severity Reaction Status Date / Time cephalexin monohydrate Allergy Itching Verified 04/09/22 13:55 [From [employer]] Review of Systems ROS Statement: Those systems with pertinent positive or pertinent negative responses have been documented in the HPI. Review of Systems: CONST: Denies fever EYES: Denies blurry vision ENT: Denies nasal congestion C/V: Denies Chest pain RESP: Denies shortness of breath GI: Endorses abdominal pain : Denies dysuria SKIN: Denies rash. MSK: Denies joint pain. NEURO: Denies headache ROS Other: All systems not noted in ROS Statement are negative. Past Medical History Past Medical History: Cancer Additional Past Medical History / Comment(s): Patient previously had perforated sigmoid diverticulitis and had to establish colostomy which was reversed in August and has done well, back pain compression fx History of Any Multi-Drug Resistant Organisms: None Reported Past Surgical History: Appendectomy, Bowel Resection Additional Past Surgical History / Comment(s): colostomy reversed 11/19/13. Spinal surgery for cord compression from metastatic cancer Past Anesthesia/Blood Transfusion Reactions: No Reported Reaction Past Psychological History: No Psychological Hx Reported Smoking Status: Former smoker Past Alcohol Use History: Occasional Past Drug Use History: Marijuana - Past Family History Father Family Medical History: Cancer (bladder) Additional Family Medical History / Comment(s): 3 sisters, breast, kidney and lung cancer. Daughter(s) Family Medical History: Cancer (breast) General Exam - General Exam Comments Initial Comments: General: Appears in no acute distress. HEAD: Normal with no signs of head trauma. EYES: PERRLA, EOMI, conjunctiva normal, no discharge. ENT: Hearing grossly intact, normal oropharynx. dry mucus membranes. RESPIRATORY: Clear breath sounds bilaterally. No wheezes, rales, or rhonchi. C/V: Irregular rate and rhythm. Tachycardic. S1 and S2 auscultated. No peripheral edema. Peripheral pulses 2+ intact throughout. ABD: Abdomen is soft, nondistended, tenderness palpation in the suprapubic region with distention in the suprapubic region. No guarding. No peritoneal signs. No rebound tenderness. : Fu catheter in place. Fu site unremarkable. Draining dark urine. Intermittent clamping. EXT: Normal range of motion, no obvious deformity SKIN: Very mild erythema located over the midline sacrum. Possible stage I early onset of stage I decubitus ulcer. Patient was in soniya boot on bilateral feet. NEURO: Alert and oriented 2-3. No focal sensory strength deficits. GCS of 15. Mildly confused. Limitations: altered mental status, physical limitation Course Vital Signs 04/09/22 04/09/22 04/09/22 12:50 14:06 15:24 Temperature 98.2 F Pulse Rate 152 H 154 H 149 H Respiratory 20 22 22 Rate Blood Pressure 100/86 86/44 127/89 O2 Sat by Pulse 97 96 94 L Oximetry 04/09/22 04/09/22 04/09/22 15:36 15:43 15:58 Temperature Pulse Rate 133 H 123 H 123 H Respiratory 20 20 18 Rate Blood Pressure 108/72 114/61 100/78 O2 Sat by Pulse 98 95 93 L Oximetry 04/09/22 04/09/22 04/09/22 16:03 16:09 16:15 Temperature Pulse Rate 114 H 120 H 113 H Respiratory 20 20 20 Rate Blood Pressure 107/57 117/75 O2 Sat by Pulse 94 L 95 94 L Oximetry 04/09/22 04/09/22 04/09/22 16:19 17:52 18:15 Temperature 98.9 F Pulse Rate 121 H 131 H 137 H Respiratory 20 20 20 Rate Blood Pressure 105/67 106/83 108/83 O2 Sat by Pulse 94 L 94 L 97 Oximetry 04/09/22 04/09/22 18:45 19:04 Temperature Pulse Rate 130 H 141 H Respiratory 20 20 Rate Blood Pressure 90/68 118/68 O2 Sat by Pulse 94 L 94 L Oximetry Procedures - Sepsis Sepsis Focused Exam #1 Time Sepsis Criteria Met: 13:46 Sepsis Focused Exam Date: 04/09/22 Sepsis Focused Exam Time: 18:30 Sepsis Focused Exam Complete: Yes Vital Signs & RN Notes Reviewed: Yes Capillary Refill: > 2 Seconds: Fingers, Toes Peripheral Pulses: Normal: Radial (R), Radial (L) Skin Color: Normal for Patient Respiratory Exam: normal lung sounds Cardiovascular Exam: tachycardia, irregular rhythm Medical Decision Making - Medical Decision Making Based on the patient's presentation and physical exam, I'm concerned for urinary retention and pain is the cause of his atrial flutter becoming rapid ventricular response. Patient was slightly hypotensive will be given a 1 L fluid bolus. We'll continue to drain his Fu catheter. CT brain, chest x-ray, CT abdomen and pelvis are ordered in addition to infectious labs. Patient will be treated for a mild COPD exacerbation as well. He'll be connected to continuous cardiac monitoring. Patient was in agreement this plan. He will be given IV fluids in addition to IV analgesia and antiemetics.Vital signs are within normal limits. EKG shows atrial flutter with RVR, likely secondary to the suspected urinary retention or underlying infectious etiology. Patient is already on Eliquis for atrial flutter/atrial fibrillation.Initial laboratory studies returned with a CBC elevated at 20.2. Patient's [place] 12.2 which is chronic. Patient also has an elevated platelet count 480. Lactic acid is slightly elevated to 3.1. Troponin is elevated, likely secondary to infectious etiology and his atrial flutter to 0.054. Urinalysis is concerning for a possible UTI, particularly with chronic indwelling Fu with moderate amount of leuk esterase, 15 WBCs, as well as mucus present. At this time, patient didn't meet sepsis criteria at 1346. Patient was started on empiric vancomycin, Zosyn due to his cephalexin ALLERGY. Source is likely his urine. However we will obtain CT abdomen and pelvis as well as CT brain for his mild confusion. Chest x-ray will also be obtained. Patient was in agreement this plan. Blood pressure at this time did improve with systolics in the 100s. Heart rate remained elevated. At this time as the patient is on metoprolol at home, I'll provide him with multiple doses of IV metoprolol to try to control his rate. I believe this will also improve his pressures, is fo llowing the fluid boluses his rate did not overly improved. The rapid ventricular response is likely secondary to his sepsis and infection. Patient is already on AND my plan is to continue ventless otherwise indicated. Chest x-ray revealed similar right lower lobe infiltrate and pleural effusions, which are chronic. CT brain revealed no acute intracranial process. CT abdomen and pelvis revealed possible slightly worsening partial small bowel obstruction versus ileus. Metastatic diseases scene as well, this patient does have a history of malignancy. Patient has a similar-appearing right moderate pleural effusion with associated atelectasis.Fu catheter will be replaced. On reevaluation, patient's vital signs are improved, and heart rate improving down to the 110s to 120s. I discussed with him his results like to admitted to the hospital. He was made nothing by mouth. I did discuss the case with Dr. Cook and she agreed to consultation. Was in agreement with the nothing by mouth plan. Will evaluate the patient tomorrow. Cardiology was consulted for the patient's atrial fibrillation/flutter with RVR. We'll trend the troponin. Patient was started on a heparin drip as he is nothing by mouth now. We'll also start the patient a Cardizem drip he is nothing by mouth and will be unable to take his home oral metoprolol. Pulmonology will also be consulted due to the moderate right pleural effusion. Echo will be obtained. BNP is pending. I spoke with the admitting physician, Dr. Shen who was in agreement with the plan. Patient was admitted to telemetry bed in serious condition. - Lab Data Result diagrams: 04/09/22 13:27 04/09/22 13:27 Lab Results 04/09/22 04/09/22 04/09/22 Range/Units 13:27 13:27 13:27 WBC 20.2 H (3.8-10.6) k/uL RBC 4.76 (4.30-5.90) m/uL Hgb 12.2 L (13.0-17.5) gm/dL Hct 39.8 (39.0-53.0) % MCV 83.6 (80.0-100.0) fL MCH 25.7 (25.0-35.0) pg MCHC 30.7 L (31.0-37.0) g/dL RDW 17.1 H (11.5-15.5) % Plt Count 480 H (150-450) k/uL MPV 8.2 Neutrophils % 83 % Lymphocytes % 10 % Monocytes % 4 % Eosinophils % 0 % Basophils % 1 % Neutrophils # 16.8 H (1.3-7.7) k/uL Lymphocytes # 2.1 (1.0-4.8) k/uL Monocytes # 0.8 (0-1.0) k/uL Eosinophils # 0.1 (0-0.7) k/uL Basophils # 0.1 (0-0.2) k/uL Hypochromasia Moderate Anisocytosis Slight PT 11.9 (9.0-12.0) sec INR 1.1 (<1.2) APTT 27.5 (22.0-30.0) sec Sodium (137-145) mmol/L Potassium (3.5-5.1) mmol/L Chloride (98-107) mmol/L Carbon Dioxide (22-30) mmol/L Anion Gap mmol/L BUN (9-20) mg/dL Creatinine (0.66-1.25) mg/dL Est GFR (CKD-EPI)AfAm (>60 ml/min/1.73 sqM) Est GFR (CKD-EPI)NonAf (>60 ml/min/1.73 sqM) Glucose (74-99) mg/dL POC Glucose (mg/dL) (70-110) mg/dL POC Glu Fruit Room Hand ID Lactic Ac Sepsis Rflx Plasma Lactic Acid Jj (0.7-2.0) mmol/L Calcium (8.4-10.2) mg/dL Total Bilirubin (0.2-1.3) mg/dL AST (17-59) U/L ALT (4-49) U/L Alkaline Phosphatase (38-126) U/L Ammonia (<30) umol/L Troponin I (0.000-0.034) ng/mL Total Protein (6.3-8.2) g/dL Albumin (3.5-5.0) g/dL Urine Color Yellow Urine Appearance Turbid (Clear) Urine pH 5.5 (5.0-8.0) Ur Specific [place] 1.023 (1.001-1.035) Urine Protein 1+ H (Negative) Urine Glucose (UA) Negative (Negative) Urine Ketones 1+ H (Negative) Urine Blood Moderate H (Negative) Urine Nitrite Negative (Negative) Urine Bilirubin 1+ H (Negative) Urine Urobilinogen 3.0 (<2.0) mg/dL Ur Leukocyte Esterase Moderate H (Negative) Urine RBC 89 H (0-5) /hpf Urine WBC 15 H (0-5) /hpf Calcium Oxalate Crystal Moderate H (None) /hpf Urine Bacteria Rare H (None) /hpf Hyaline Casts 13 H (0-2) /lpf Granular Casts 13 (0) /lpf Urine Mucus Occasional H (None) /hpf Urine Yeast (Budding) Many H (None) /hpf Urine Opiates Screen Not Detected (NotDetected) Ur Oxycodone Screen Detected H (NotDetected) Urine Methadone Screen Not Detected (NotDetected) Ur Propoxyphene Screen Not Detected (NotDetected) Ur Barbiturates Screen Not Detected (NotDetected) U Tricyclic Antidepress Detected H (NotDetected) Ur Phencyclidine Scrn Not Detected (NotDetected) Ur Amphetamines Screen Not Detected (NotDetected) U Methamphetamines Scrn Not Detected (NotDetected) U Benzodiazepines Scrn Not Detected (NotDetected) Urine Cocaine Screen Not Detected (NotDetected) U Marijuana (THC) Screen Not Detected (NotDetected) Serum Alcohol mg/dL Coronavirus (PCR) (Not Detectd) 04/09/22 04/09/22 04/09/22 Range/Units 13:27 13:27 13:27 WBC (3.8-10.6) k/uL RBC (4.30-5.90) m/uL Hgb (13.0-17.5) gm/dL Hct (39.0-53.0) % MCV (80.0-100.0) fL MCH (25.0-35.0) pg MCHC (31.0-37.0) g/dL RDW (11.5-15.5) % Plt Count (150-450) k/uL MPV Neutrophils % % Lymphocytes % % Monocytes % % Eosinophils % % Basophils % % Neutrophils # (1.3-7.7) k/uL Lymphocytes # (1.0-4.8) k/uL Monocytes # (0-1.0) k/uL Eosinophils # (0-0.7) k/uL Basophils # (0-0.2) k/uL Hypochromasia Anisocytosis PT (9.0-12.0) sec INR (<1.2) APTT (22.0-30.0) sec Sodium 137 (137-145) mmol/L Potassium 4.5 (3.5-5.1) mmol/L Chloride 104 (98-107) mmol/L Carbon Dioxide 19 L (22-30) mmol/L Anion Gap 14 mmol/L BUN 32 H (9-20) mg/dL Creatinine 0.97 (0.66-1.25) mg/dL Est GFR (CKD-EPI)AfAm >90 (>60 ml/min/1.73 sqM) Est GFR (CKD-EPI)NonAf 79 (>60 ml/min/1.73 sqM) Glucose 134 H (74-99) mg/dL POC Glucose (mg/dL) (70-110) mg/dL POC Glu Fruit Room Hand ID Lactic Ac Sepsis Rflx Plasma Lactic Acid Jj 3.1 H* (0.7-2.0) mmol/L Calcium 8.9 (8.4-10.2) mg/dL Total Bilirubin 0.6 (0.2-1.3) mg/dL AST 23 (17-59) U/L ALT 13 (4-49) U/L Alkaline Phosphatase 141 H (38-126) U/L Ammonia 12 (<30) umol/L Troponin I 0.054 H* (0.000-0.034) ng/mL Total Protein 6.4 (6.3-8.2) g/dL Albumin 2.9 L (3.5-5.0) g/dL Urine Color Urine Appearance (Clear) Urine pH (5.0-8.0) Ur Specific [place] (1.001-1.035) Urine Protein (Negative) Urine Glucose (UA) (Negative) Urine Ketones (Negative) Urine Blood (Negative) Urine Nitrite (Negative) Urine Bilirubin (Negative) Urine Urobilinogen (<2.0) mg/dL Ur Leukocyte Esterase (Negative) Urine RBC (0-5) /hpf Urine WBC (0-5) /hpf Calcium Oxalate Crystal (None) /hpf Urine Bacteria (None) /hpf Hyaline Casts (0-2) /lpf Granular Casts (0) /lpf Urine Mucus (None) /hpf Urine Yeast (Budding) (None) /hpf Urine Opiates Screen (NotDetected) Ur Oxycodone Screen (NotDetected) Urine Methadone Screen (NotDetected) Ur Propoxyphene Screen (NotDetected) Ur Barbiturates Screen (NotDetected) U Tricyclic Antidepress (NotDetected) Ur Phencyclidine Scrn (NotDetected) Ur Amphetamines Screen (NotDetected) U Methamphetamines Scrn (NotDetected) U Benzodiazepines Scrn (NotDetected) Urine Cocaine Screen (NotDetected) U Marijuana (THC) Screen (NotDetected) Serum Alcohol <10 mg/dL Coronavirus (PCR) (Not Detectd) 04/09/22 04/09/22 04/09/22 Range/Units 13:27 13:56 14:01 WBC (3.8-10.6) k/uL RBC (4.30-5.90) m/uL Hgb (13.0-17.5) gm/dL Hct (39.0-53.0) % MCV (80.0-100.0) fL MCH (25.0-35.0) pg MCHC (31.0-37.0) g/dL RDW (11.5-15.5) % Plt Count (150-450) k/uL MPV Neutrophils % % Lymphocytes % % Monocytes % % Eosinophils % % Basophils % % Neutrophils # (1.3-7.7) k/uL Lymphocytes # (1.0-4.8) k/uL Monocytes # (0-1.0) k/uL Eosinophils # (0-0.7) k/uL Basophils # (0-0.2) k/uL Hypochromasia Anisocytosis PT (9.0-12.0) sec INR (<1.2) APTT (22.0-30.0) sec Sodium (137-145) mmol/L Potassium (3.5-5.1) mmol/L Chloride (98-107) mmol/L Carbon Dioxide (22-30) mmol/L Anion Gap mmol/L BUN (9-20) mg/dL Creatinine (0.66-1.25) mg/dL Est GFR (CKD-EPI)AfAm (>60 ml/min/1.73 sqM) Est GFR (CKD-EPI)NonAf (>60 ml/min/1.73 sqM) Glucose (74-99) mg/dL POC Glucose (mg/dL) 126 H (70-110) mg/dL POC Glu Fruit Room Hand ID Ana Rosa Holder Lactic Ac Sepsis Rflx Y Plasma Lactic Acid Jj (0.7-2.0) mmol/L Calcium (8.4-10.2) mg/dL Total Bilirubin (0.2-1.3) mg/dL AST (17-59) U/L ALT (4-49) U/L Alkaline Phosphatase (38-126) U/L Ammonia (<30) umol/L Troponin I (0.000-0.034) ng/mL Total Protein (6.3-8.2) g/dL Albumin (3.5-5.0) g/dL Urine Color Urine Appearance (Clear) Urine pH (5.0-8.0) Ur Specific [place] (1.001-1.035) Urine Protein (Negative) Urine Glucose (UA) (Negative) Urine Ketones (Negative) Urine Blood (Negative) Urine Nitrite (Negative) Urine Bilirubin (Negative) Urine Urobilinogen (<2.0) mg/dL Ur Leukocyte Esterase (Negative) Urine RBC (0-5) /hpf Urine WBC (0-5) /hpf Calcium Oxalate Crystal (None) /hpf Urine Bacteria (None) /hpf Hyaline Casts (0-2) /lpf Granular Casts (0) /lpf Urine Mucus (None) /hpf Urine Yeast (Budding) (None) /hpf Urine Opiates Screen (NotDetected) Ur Oxycodone Screen (NotDetected) Urine Methadone Screen (NotDetected) Ur Propoxyphene Screen (NotDetected) Ur Barbiturates Screen (NotDetected) U Tricyclic Antidepress (NotDetected) Ur Phencyclidine Scrn (NotDetected) Ur Amphetamines Screen (NotDetected) U Methamphetamines Scrn (NotDetected) U Benzodiazepines Scrn (NotDetected) Urine Cocaine Screen (NotDetected) U Marijuana (THC) Screen (NotDetected) Serum Alcohol mg/dL Coronavirus (PCR) Not Detected (Not Detectd) - EKG Data -: EKG Interpreted by Me EKG Comments: 12-lead Electrocardiogram Interpretation Note EKG was reviewed and interpreted by myself. 12-lead ECG performed at 1257 is interpreted by me as revealing atrial flutter with RVR at a rate of 153 beats per minute. [place] is normal. QRS duration is 83 ms, QTc is 350 ms.. There were no ST or T wave abnormalities to suggest myocardial ischemia or injury. R wave progression across the precordium was satisfactory. By my interpretation this E KG is non-diagnostic for acute ischemia. atrial flutter with RVR, history of atrial flutter/atrial fibrillation. Critical Care Time Critical Care Time: Yes Total Critical Care Time: 35 Critical Care Time: Upon my evaluation, this patient had a high probability of imminent or life-thr eatening deterioration due to sepsis, UTI, atrial flutter with RVR, which required my direct attention, intervention, and personal management. I have personally provided 35 minutes of critical care time exclusive of time spent on separately billable procedures. Time includes review of laboratory data, radiology results, discussion with consultants, and monitoring for potential decompensation. Interventions were performed as documented in my note. Disposition Clinical Impression: Sepsis, UTI (urinary tract infection), Atrial flutter with rapid ventricular response, Elevated troponin, COPD exacerbation, History of lung cancer Disposition: ADMITTED IP TO THIS HOSP Condition: Serious Time of Disposition: 16:40
[2022-04-09] MEDS ORDERED: VANCOMYCIN IV PER PHARMACY 1 EACH MISC MISCELLANE PRN (13:45)
[2022-04-09] MEDS ORDERED: methylPREDNISolone SOD SUCCI 125 MG/2 ML VIAL IV STA (13:45)
[2022-04-09] MEDS ORDERED: SODIUM CHLORIDE 0.9% 1,000 ML IV STA (13:47)
[2022-04-09] MEDS ORDERED: PIPERACILLIN-TAZOBACTAM 3.375 GM in SODIUM CHLORIDE 0.9% 100 ML IVPB STA (13:48)
[2022-04-09 13:49] LABS: Appearance,Urine Turbid (Clear); Bacteria,Urine Rare /hpf; Bilirubin,Urine 1+ (Negative); Blood,Urine Moderate (Negative); Budding Yeast,Urine Many /hpf; Calcium Oxalate Crystals,Urine Moderate /hpf; Color,Urine Yellow; Glucose,Urine (UA) Negative (Negative); Granular Casts,Urine 13 /lpf (0); Hyaline Casts,Urine 13 /lpf (0-2); Ketones,Urine 1+ (Negative); Leukocyte Esterase,Urine Moderate (Negative); Mucus,Urine Occasional /hpf; Nitrite,Urine Negative (Negative); PH, Urine 5.5 (5.0-8.0); Protein,Urine 1+ (Negative); RBC,Urine 89 /hpf (0-5); Specific Gravity,Urine 1.023 (1.001-1.035); WBC,Urine 15 /hpf (0-5)
[2022-04-09 13:52] LABS: ALT 13 U/L (4-49); AST 23 U/L (17-59); African American GFR (CKD) >90 (>60 ml/min/1.73 sqM); Albumin 2.9 g/dL (3.5-5.0); Alcohol <10 mg/dL; Alkaline Phosphatase 141 U/L (38-126); Anion Gap 14 mmol/L; Blood Urea Nitrogen 32 mg/dL (9-20); Calcium 8.9 mg/dL (8.4-10.2); Carbon Dioxide 19 mmol/L (22-30); Chloride 104 mmol/L (98-107); Glucose 134 mg/dL (74-99); INR 1.1 (<1.2); Non-African American GFR(CKD) 79 (>60 ml/min/1.73 sqM); Partial Thromboplastin Time 27.5 sec (22.0-30.0); Potassium 4.5 mmol/L (3.5-5.1); Prothrombin Time 11.9 sec (9.0-12.0); Sodium 137 mmol/L (137-145); Total Bilirubin 0.6 mg/dL (0.2-1.3); Total Protein 6.4 g/dL (6.3-8.2)
[2022-04-09] MEDS ORDERED: VANCOMYCIN 2,000 MG in SODIUM CHLORIDE 0.9% 500 ML 500 ML IVPB STA (13:52)
[2022-04-09 13:56] LABS: Lactic Acid, Venous 3.1 mmol/L (0.7-2.0)
[2022-04-09 13:59] LABS: Amphetamine Screen,Urine Not Detected (NotDetected); Barbiturate Screen,Urine Not Detected (NotDetected); Benzodiazepines Screen,Urine Not Detected (NotDetected); Cocaine Screen,Urine Not Detected (NotDetected); Methadone Screen, Urine Not Detected (NotDetected); Opiate Screen,Urine Not Detected (NotDetected); Oxycodone Screen, Urine Detected (NotDetected); Phencyclidine Screen,Urine Not Detected (NotDetected); Tricyclic Antidepressant,Urine Detected (NotDetected); Urn Cannabinoid Scrn Not Detected (NotDetected)
[2022-04-09 14:11] LABS: Glucose,Whole Blood 126 mg/dL (70-110)
[2022-04-09] MEDS ORDERED: LACTATED RINGERS 1,000 ML IV ONE (14:15)
--- NOTE | 2022-04-09 14:37 | XR ---
EXAMINATION TYPE: XR chest 2V DATE OF EXAM: 04/09/2022 2:28 PM COMPARISON: Chest radiographs from 04/03/2022. TECHNIQUE: XR chest 2V Frontal and lateral views of the chest. CLINICAL INDICATION:Male, 71 years old with history of altered mental status; FINDINGS: Lungs/Pleura: Similar right lower lobe infiltrate and pleural effusions. Pulmonary vascularity: Unremarkable. Heart/mediastinum: Cardiomediastinal silhouette is enlarged and stable. Musculoskeletal: Multiple level degenerative disc disease changes seen throughout the spine. Postsurg ical changes of the lower thoracic/lumbar spine with bilateral pedicular screws and rods and vertebra l augmentation. IMPRESSION: Similar right lower lobe infiltrate and pleural effusions. Correlate for pneumonia versus CHF exacerb ation.
--- NOTE | 2022-04-09 14:46 | CT ---
EXAMINATION TYPE: CT brain wo con CT DLP: 1097.2 mGycm, Automated exposure control for dose reduction was used. DATE OF EXAM: 04/09/2022 2:40 PM COMPARISON: None. CLINICAL INDICATION:Male, 71 years old with history of altered mental status, weakness, ams TECHNIQUE: Brain: Multiple axial CT images of the brain were obtained without IV contrast. Coronal and sagittal reformats reviewed. FINDINGS: Brain: Extra-axial spaces: No abnormal extra-axial fluid collections. Ventricular system: Within normal limits Cerebral parenchyma: No acute intraparenchymal hemorrhage or mass effect. The sinclair-white junction is well differentiated. Scattered hypoattenuating areas are seen within the white matter. Cerebral vol ume loss. Empty sella morphology. Cerebellum: Unremarkable. Mass effect: No evidence of midline shift. Intracranial vasculature: unremarkable Soft tissues: Normal. Calvarium/osseous structures: No depressed skull fracture. Paranasal sinuses and mastoid air cells: Clear Visualized orbits: Orbital contents are intact. IMPRESSION: 1. No acute intracranial process. 2. Nonspecific white matter changes, likely secondary to chronic small vessel ischemic disease.
--- NOTE | 2022-04-09 14:59 | CT ---
EXAMINATION TYPE: CT abdomen pelvis w con CT DLP: 3084.2 mGycm, Automated exposure control for dose reduction was used. DATE OF EXAM: 04/09/2022 2:43 PM COMPARISON: CT abdomen pelvis most recent from 04/03/2022. CLINICAL INDICATION:Male, 71 years old with history of abd pain; TECHNIQUE: Standard CT of the abdomen and pelvis following the administration of 100 cc of Isovue 3 00 IV contrast material. Coronal and sagittal reformats were performed. FINDINGS: LOWER CHEST: Moderate right pleural effusion with associated atelectasis redemonstrated. ABDOMEN LIVER: Unremarkable GALLBLADDER AND BILE DUCTS: Unremarkable. PANCREAS: Mild atrophic appearance. SPLEEN: Unremarkable. ADRENAL GLANDS: Unremarkable. KIDNEYS AND URETERS: No evidence of hydronephrosis or renal calculus. Kidneys enhance symmetrically. Stable bilateral renal cysts. PELVIS BLADDER: Nondistended with Weaver catheter in place. REPRODUCTIVE: Unremarkable. ABDOMEN & PELVIS STOMACH AND BOWEL: Postsurgical changes of the mid abdominal small bowel with dilatation again throug hout the abdomen measuring up to 4.7 cm which is progressed, previously 4.0 cm. No pneumatosis or por jean venous gas. Large colonic stool burden redemonstrated. The colon measures up to 9.37 m in diamete r. Rectal fecaloma measuring up to 8.0 cm. Small bowel air-fluid levels identified. There is again si milar underdistention of the terminal ileum. The appendix is not definitively visualized and may be s urgically absent. No evidence of bowel obstruction. PERITONEUM: No evidence of pneumoperitoneum or free fluid. VASCULATURE: Mild atherosclerotic calcifications are present throughout the abdominal aorta and its b ranches. No evidence of aortic aneurysm. MUSCULOSKELETAL: No acute osseous abnormalities. Postsurgical changes to the spine with hardware in p lace and intact. Vertebroplasty changes also present. Stable lytic lesions within the left iliac bone as well as the right iliac bone, sacrum, and L3 and L4 vertebral bodies and ribs. LYMPH NODES: No gross evidence for lymphadenopathy. SOFT TISSUE/ABDOMINAL WALL: Anasarca. IMPRESSION: 1. Increased diffuse dilatation of the small bowel and colon compared to prior examination 04/03/2022. This is concerning for partial small bowel obstruction versus ileus. No pneumatosis or portal venous gas. 2. Persistent large amount stool burden. 3. Stable small scattered lytic lesions throughout the osseous structures concerning for metastatic d isease. Correlate with history of malignancy. 4. Similar moderate right pleural effusion with associated atelectasis.
[2022-04-09] MEDS: METOPROLOL TARTRATE 5 MG/5 ML VIAL IVP SCH ×3 (15:31→15:44)
[2022-04-09] MEDS ORDERED: METOPROLOL TARTRATE 5 MG/5 ML VIAL IVP SCH (15:57)
[2022-04-09] MEDS ORDERED: METOPROLOL TARTRATE 5 MG/5 ML VIAL IVP STA (16:00)
[2022-04-09] MEDS ORDERED: METOPROLOL TARTRATE 5 MG/5 ML VIAL IVP ONE ×2 (16:10→16:20)
[2022-04-09] MEDS: LACTATED RINGERS 1,000 ML IV SCH ×2 (16:11→23:20)
[2022-04-09] MEDS ORDERED: ASPIRIN 81 MG PO STA (16:14)
[2022-04-09] MEDS ORDERED: NALOXONE 0.4 MG/ML 1 ML VIAL IV PRN (16:46)
[2022-04-09] MEDS ORDERED: ONDANSETRON 4 MG/2 ML VIAL IVP PRN (16:46)
[2022-04-09] MEDS ORDERED: HEPARIN SODIUM 1,000 UN/ML (10ML VL) IV ONE (16:49)
[2022-04-09] MEDS ORDERED: MORPHINE SULFATE 4 MG/ML SYRINGE IVP PRN (16:50)
[2022-04-09] MEDS: HEPARIN SOD,PORK IN 0.45% NACL 25,000 UNIT in 0.45% NACL 1 250ML.BAG IV SCH (18:26)
[2022-04-09] MEDS: DILTIAZEM 125 MG in SODIUM CHLORIDE 0.9% 100 ML IV SCH (18:34)
[2022-04-09] MEDS: IPRATROPIUM-ALBUTEROL 3 ML NEB INHALATION SCH ×2 (19:34→23:55)
[2022-04-09 19:56] LABS: Glucose,Whole Blood 155 mg/dL (70-110)
[2022-04-09] MEDS: PIPERACILLIN-TAZOBACTAM 3.375 GM in SODIUM CHLORIDE 0.9% 100 ML IVPB SCH (22:01)
[2022-04-09] MEDS: methylPREDNISolone SOD SUCCI 40 MG/ML 1 ML VIAL IV SCH (22:05)
[2022-04-09] MEDS: GABAPENTIN 300 MG CAP PO SCH (22:05)
--- NOTE | 2022-04-09 23:18 | XR ---
EXAMINATION TYPE: XR chest 1V confirm line [facility] DATE OF EXAM: 04/09/2022 COMPARISON: Today HISTORY: Line placement TECHNIQUE: FINDINGS: There is nasogastric tube overlying the greater curvature of the stomach. There is some ate lectasis and infiltrate at the lung bases. There is thoracolumbar posterior fusion surgery. IMPRESSION: NG tube is in the stomach. Pleural reaction and atelectasis at the lung bases without albert nge.
[2022-04-10] MEDS: HEPARIN SODIUM 1,000 UN/ML (10ML VL) IV PRN ×2 (01:56→10:39)
--- NOTE | 2022-04-10 02:08 | US ---
EXAMINATION TYPE: US chest DATE OF EXAM: 04/10/2022 COMPARISON: XRAY 04/09/22 CLINICAL HISTORY: Markings for thoracentesis by pulmonary staff. Markings for thora, fluid seen on ri ght side on xray.. TECHNIQUE: Targeted ultrasound of the posterior lower right hemithorax EXAM MEASUREMENTS: Right Pleural Effusion pocket size: 6.8 cm Right skin surface to fluid distance: 3.82 cm Limited due to patient body habitus and scanned with patient on left side. Needed 2 nurses to roll on side. Left side not scanned. Right side marked for possible thoracentesis outside the dept. Pulmonologists are able to review the images in the patient?s EMR. IMPRESSIONS: Images show evidence of a moderate-sized right pleural effusion.
[2022-04-10] MEDS: IPRATROPIUM-ALBUTEROL 3 ML NEB INHALATION SCH ×6 (03:56→23:51)
[2022-04-10] MEDS: VANCOMYCIN 2,000 MG in SODIUM CHLORIDE 0.9% 500 ML 500 ML IVPB SCH ×2 (04:19→16:05)
[2022-04-10] MEDS: GABAPENTIN 300 MG CAP PO SCH ×3 (05:00→21:47)
[2022-04-10] MEDS: PIPERACILLIN-TAZOBACTAM 3.375 GM in SODIUM CHLORIDE 0.9% 100 ML IVPB SCH ×3 (05:00→22:14)
[2022-04-10 06:12] LABS: Glucose,Whole Blood 143 mg/dL (70-110)
[2022-04-10] MEDS: DILTIAZEM 125 MG in SODIUM CHLORIDE 0.9% 100 ML IV SCH ×2 (07:01→16:24)
[2022-04-10] MEDS: LACTATED RINGERS 1,000 ML IV SCH ×2 (07:08→16:02)
[2022-04-10] MEDS: TAMSULOSIN 0.4 MG CAP.ER.24H PO SCH (08:49)
[2022-04-10 08:55] LABS: INR 1.1 (<1.2); Partial Thromboplastin Time 41.8 sec (22.0-30.0); Prothrombin Time 12.1 sec (9.0-12.0)
[2022-04-10] MEDS: methylPREDNISolone SOD SUCCI 40 MG/ML 1 ML VIAL IV SCH ×2 (08:56→22:13)
[2022-04-10] MEDS: PANTOPRAZOLE 40 MG/10 ML VIAL IV SCH (08:56)
[2022-04-10 08:59] LABS: African American GFR (CKD) >90 (>60 ml/min/1.73 sqM); Anion Gap 10 mmol/L; Blood Urea Nitrogen 27 mg/dL (9-20); Calcium 7.8 mg/dL (8.4-10.2); Carbon Dioxide 24 mmol/L (22-30); Chloride 107 mmol/L (98-107); Glucose 145 mg/dL (74-99); Non-African American GFR(CKD) >90 (>60 ml/min/1.73 sqM); Potassium 4.2 mmol/L (3.5-5.1); Sodium 141 mmol/L (137-145)
[2022-04-10 09:11] LABS: Anisocytosis Slight; Basophils % (A) 0 %; Eosinophils % (A) 0 %; HCT 34.1 % (39.0-53.0); HGB 10.3 gm/dL (13.0-17.5); Hypochromasia Marked; Lymphocytes # (A) 1.1 k/uL (1.0-4.8); Lymphocytes % (A) 7 %; MCH 26.2 pg (25.0-35.0); MCHC 30.1 g/dL (31.0-37.0); Mean Platelet Volume 8.9; Monocytes # (A) 0.5 k/uL (0-1.0); Monocytes % (A) 3 %; Neutrophils # (A) 14.8 k/uL (1.3-7.7); Neutrophils % (A) 89 %; Platelet Count 326 k/uL (150-450); RBC 3.91 m/uL (4.30-5.90); RDW 17.1 % (11.5-15.5); WBC 16.6 k/uL (3.8-10.6)
--- NOTE | 2022-04-10 10:38 | P.CRDCN ---
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 Patient does not follow with a starch treating assistant. We have been asked to see the patient in consultation for atrial flutter with RVR. Patient examined at the bedside. Patient is somewhat of a poor historian. The patient states he has been at [facility] for rehab after having a back surgery a few months ago. The patient was brought to the hospital secondary to urinary tract infection and altered mental status. The patient was also found to have a partial small bowel obstruction. He is currently nothing by mouth. He has an NG tube in place to low intermittent suction. The patient was found to be in atrial flutter with RVR. Patient was started on IV heparin and IV Cardizem due to his NPO status. He subsequently converted to sinus mechanism. The patient denies any chest pain or pressure. He denies any shortness of breath. He reports some abdominal pain. He denies passing flatus or having a bowel movement. * EKG reveals atrial flutter with RVR * Chest xray pleural reaction and atelectasis at the lung bases without change. * CT abdomen and pelvis: Increased diffuse dilatation of the small bowel and colon compared to prior examination. Concerning for partial small bowel obstruction versus ileus. Persistent large amount of stool burden. Stable small scattered lytic lesions throughout the osseous structures concerning for metastatic disease. Similar moderate right pleural effusion with associated atelectasis. * Chest ultrasound: Evidence of moderate right-sided pleural effusion * Laboratory data: WBC 16.6. Hemoglobin 10.3. Platelet count 17.1. Sodium 141. Potassium 4.2. BUN 27. Creatinine 0.80. Troponin 0.054. 0.050. 0.048. * Current home cardiac medications include metoprolol 50 mg 3 times a day and Eliquis 5 mg twice a day * Most recent echocardiogram obtained on 03/28/2022 revealed normal LV systolic function with EF 55-60%. No pericardial effusion. * Cardiac catheterization history: Unknown REVIEW OF SYSTEMS: At the time of my exam: CONSTITUTIONAL: Denies fever or chills. HEENT: Denies blurred vision, vision changes, or eye pain. Denies hemoptysis CARDIOVASCULAR: Denies chest pain. Denies orthopnea. Denies PND. Denies palpitations RESPIRATORY: Denies shortness of breath. GASTROINTESTINAL: Denies abdominal pain. Denies nausea or vomiting. HEMATOLOGIC: Denies bleeding disorders. GENITOURINARY: Denies any blood in urine. SKIN: Denies pruitis. Denies rash. PHYSICAL EXAM: VITAL SIGNS: Reviewed. GENERAL: Well-developed in no acute distress. HEENT: Head is normocephalic. Pupils are equal, round. Sclerae anicteric. Mucous membranes of the mouth are moist. Neck supple. No JVD or thyromegaly LUNGS: Respirations even and unlabored. Lungs essentially clear to auscultation bilaterally. HEART: Regular rate and rhythm. S1 and S2 heard. ABDOMEN: Soft. Positive tenderness. Distended. NG tube noted. EXTREMITIES: Normal range of motion. No clubbing or cyanosis. Peripheral pulses intact. Mild bilateral nonpitting edema. NEUROLOGIC: Awake and alert. Oriented x 1-2. ASSESSMENT: Altered mental status Urinary tract infection Partial small bowel obstruction versus ileus, per CT scan Moderate right sided pleural effusion Paroxysmal atrial fibrillation/atypical atrial flutter with RVR, currently maintaining sinus mechanism Abnormal troponins, flat, secondary to RVR, ACS ruled out Lung cancer with metastasis to spine, per patient PLAN: No need to repeat echo as this was performed earlier this month Patient is currently NPO with NG tube. Continue IV heparin. Resume Eliquis when patient can tolerate oral medications Decrease Cardizem drip to 5mg/hr. Continue IV Cardizem while patient is nothing by mouth. When able to tolerate oral medications, resume metoprolol General surgery has been consulted. Await evaluation Further recommendations pending patient's course Nurse practitioner note has been reviewed by physician. Signing provider agrees with the documented findings, assessment, and plan of care. Past Medical History Past Medical History: Cancer Additional Past Medical History / Comment(s): Patient previously had perforated sigmoid diverticulitis and had to establish colostomy which was reversed in August and has done well, back pain compression fx History of Any Multi-Drug Resistant Organisms: None Reported Past Surgical History: Appendectomy, Bowel Resection Additional Past Surgical History / Comment(s): colostomy reversed 11/19/13. Spinal surgery for cord compression from metastatic cancer Past Anesthesia/Blood Transfusion Reactions: No Reported Reaction Past Psychological History: No Psychological Hx Reported Smoking Status: Former smoker Past Alcohol Use History: Occasional Past Drug Use History: Marijuana - Past Family History Father Family Medical History: Cancer (bladder) Additional Family Medical History / Comment(s): 3 sisters, breast, kidney and lung cancer. Daughter(s) Family Medical History: Cancer (breast) Medications and Allergies Home Medications Medication Instructions Recorded Confirmed Type Cyclobenzaprine [Flexeril] 10 mg PO TID@0600,1400,2200 02/03/22 04/09/22 History Ipratropium-Albuterol Nebulize 3 ml INHALATION RT-Q8H 02/03/22 04/09/22 History [Duoneb 0.5 mg-3 mg/3 ml Soln] Lactulose 10 gm PO BID 03/27/22 04/09/22 History Psyllium Husk 100% [Metamucil 6 gm PO HS 03/27/22 04/09/22 History Packet] Sennosides [Senokot] 8.6 mg PO DAILY 03/27/22 04/09/22 History Tamsulosin [Flomax] 0.4 mg PO DAILY 03/27/22 04/09/22 History Apixaban [Eliquis] 5 mg PO BID #60 tab 03/28/22 04/09/22 Rx Omeprazole 20 mg PO DAILY@0600 04/02/22 04/09/22 History oxyCODONE-APAP 7.5-325MG [Percocet 1 tab PO Q6HR PRN 04/02/22 04/09/22 History 7.5-325 mg] Amoxic-Pot Clav 875-125Mg 1 tab PO Q12HR 10 Days #20 tab 04/06/22 04/09/22 Rx [Augmentin 875-125] Gabapentin [Neurontin] 300 mg PO TID@0600,1400,2200 3 04/06/22 04/09/22 Rx Days #9 cap Metoprolol Tartrate [Lopressor] 50 mg PO TID@0800,1400,2200 04/09/22 04/09/22 History Allergies Allergy/AdvReac Type Severity Reaction Status Date / Time cephalexin monohydrate Allergy Itching Verified 04/09/22 13:55 [From Keflex] Physical Exam Vitals: Vital Signs Temp Pulse Pulse Resp BP BP Pulse Ox 04/10/22 04:10 93 04/10/22 03:57 107 H 04/10/22 03:44 98.5 F 120 H 16 116/74 95 04/09/22 23:26 98.7 F 157 H 18 108/77 96 04/09/22 19:53 99.0 F 146 H 18 111/69 93 L 04/09/22 19:46 146 H 04/09/22 19:34 148 H 94 L 04/09/22 19:04 141 H 20 118/68 94 L 04/09/22 18:45 130 H 20 90/68 94 L 04/09/22 18:15 137 H 20 108/83 97 04/09/22 17:52 98.9 F 131 H 20 106/83 94 L 04/09/22 16:19 121 H 20 105/67 94 L 04/09/22 16:15 113 H 20 94 L 04/09/22 16:09 120 H 20 117/75 95 04/09/22 16:03 114 H 20 107/57 94 L 04/09/22 15:58 123 H 18 100/78 93 L 04/09/22 15:43 123 H 20 114/61 95 04/09/22 15:36 133 H 20 108/72 98 04/09/22 15:24 149 H 22 127/89 94 L 04/09/22 14:06 154 H 22 86/44 96 04/09/22 12:50 98.2 F 152 H 20 100/86 97 Intake and Output 04/09/22 04/10/22 04/10/22 22:59 06:59 14:59 Intake Total 300 104.556 64.5 Output Total 1275 Balance 300 -1170.444 64.5 Intake: Intake, IV Titration 104.556 64.5 Amount Diltiazem 125 mg In 30 64.5 Sodium Chloride 0.9% 100 ml @ Per Protocol IV .Q0M [facility] Rx#:[id number] Heparin Sod,Pork in 0.45% 74.556 NaCl 25,000 unit In 0.45 % NaCl 1 250ml.bag @ 7.6 UNITS/KG/HR 9.963 mls/hr IV .Q24H [facility] Rx#: [id number] Oral 300 Output: Gastric Drainage 900 Urine 375 Other: Voiding Method Indwelling Catheter Indwelling Catheter Weight 131.088 kg 134.5 kg Results 04/10/22 08:15 04/10/22 08:15 Cardiac Enzymes 04/09/22 04/09/22 04/09/22 Range/Units 13: 13: 19:00 AST 23 (17-59) U/L Troponin I 0.054 H* 0.050 H* (0.000-0.034) ng/mL 04/09/22 Range/Units 21:47 AST (17-59) U/L Troponin I 0.048 H* (0.000-0.034) ng/mL Coagulation 04/09/22 04/10/22 Range/Units 13: 00:55 PT 11.9 (9.0-12.0) sec APTT 27.5 40.8 H (22.0-30.0) sec CBC 04/09/22 Range/Units 13: WBC 20.2 H (3.8-10.6) k/uL RBC 4.76 (4.30-5.90) m/uL Hgb 12.2 L (13.0-17.5) gm/dL Hct 39.8 (39.0-53.0) % Plt Count 480 H (150-450) k/uL Comprehensive Metabolic Panel 04/09/22 Range/Units 13:27 Sodium 137 (137-145) mmol/L Potassium 4.5 (3.5-5.1) mmol/L Chloride 104 (98-107) mmol/L Carbon Dioxide 19 L (22-30) mmol/L BUN 32 H (9-20) mg/dL Creatinine 0.97 (0.66-1.25) mg/dL Glucose 134 H (74-99) mg/dL Calcium 8.9 (8.4-10.2) mg/dL AST 23 (17-59) U/L ALT 13 (4-49) U/L Alkaline Phosphatase 141 H (38-126) U/L Total Protein 6.4 (6.3-8.2) g/dL Albumin 2.9 L (3.5-5.0) g/dL Current Medications Generic Name Dose Route Start Last Admin Trade Name Freq PRN Reason Stop Dose Admin Albuterol/Ipratropium 3 ml 04/09/22 20:00 04/10/22 03:56 Ipratropium-Albuterol 3 Ml Neb INHALATION 3 ml RT-Q4H [facility] Administration Gabapentin 300 mg 04/09/22 22:00 04/10/22 05:00 Gabapentin 300 Mg Cap PO Not Given TID@0600,1400,2200 [facility] Heparin Sodium (Porcine) 0 unit 04/09/22 16:49 04/10/22 01:56 Heparin Sodium 1,000 Un/Ml (10ml Vl) IV 3,277 unit PER PROTOCOL PRN Administration Low PTT Protocol Piperacillin Sod/Tazobactam 100 mls @ 25 mls/hr 04/09/22 22:00 04/10/22 05:00 Sod 3.375 gm/ Sodium Chloride IVPB 25 mls/hr Q8H [facility] Administration Protocol Lactated Ringer's 1,000 mls @ 125 mls/hr 04/09/22 14:15 04/10/22 07:08 Lactated Ringers IV 125 mls/hr .Q8H [facility] Administration Vancomycin HCl 2,000 mg/ 500 mls @ 167 mls/hr 04/10/22 05:00 04/10/22 04:19 Sodium Chloride IVPB 167 mls/hr Q12H [facility] Administration Heparin Sodium/Sodium Chloride 250 mls @ 9.963 mls/hr 04/09/22 17:00 04/10/22 01:55 25,000 unit/ Sodium Chloride IV 9.6 units/kg/hr .Q24H [facility] 12.584 mls/hr Titration Protocol 7.6 UNITS/KG/HR Diltiazem HCl 125 mg/ Sodium 125 mls @ 0 mls/hr 04/09/22 17:15 04/10/22 07:01 Chloride IV 15 ml/hr .Q0M [facility] 15 mls/hr Administration Protocol Per Protocol Methylprednisolone Sodium Succinate 40 mg 04/09/22 21:00 04/09/22 22:05 Methylprednisolone Sod Succi 40 Mg/Ml 1 Ml Vial IV 40 mg Q12HR [facility] Administration Morphine Sulfate 4 mg 04/09/22 16:50 Morphine Sulfate 4 Mg/Ml Syringe IVP Q4HR PRN Pain Naloxone HCl 0.2 mg 04/09/22 16:46 Naloxone 0.4 Mg/Ml 1 Ml Vial IV Q2M PRN Opioid Reversal Ondansetron HCl 4 mg 04/09/22 16:46 Ondansetron 4 Mg/2 Ml Vial IVP Q8HR PRN Nausea And Vomiting Pantoprazole Sodium 40 mg 04/10/22 09:00 Pantoprazole 40 Mg/10 Ml Vial IV DAILY [facility] Tamsulosin HCl 0.4 mg 04/10/22 09:00 Tamsulosin 0.4 Mg Cap.Er.24h PO DAILY [facility] Intake and Output 04/09/22 04/10/22 04/10/22 22:59 06:59 14:59 Intake Total 300 104.556 64.5 Output Total 1275 Balance 300 -1170.444 64.5 Intake: Intake, IV Titration 104.556 64.5 Amount Diltiazem 125 mg In 30 64.5 Sodium Chloride 0.9% 100 ml @ Per Protocol IV .Q0M [facility] Rx#:[id number] Heparin Sod,Pork in 0.45% 74.556 NaCl 25,000 unit In 0.45 % NaCl 1 250ml.bag @ 7.6 UNITS/KG/HR 9.963 mls/hr IV .Q24H [facility] Rx#: [id number] Oral 300 Output: Gastric Drainage 900 Urine 375 Other: Voiding Method Indwelling Catheter Indwelling Catheter Weight 131.088 kg 134.5 kg 04/09/22 13:27 04/09/22 13:27
[2022-04-10 11:27] LABS: Glucose,Whole Blood 148 mg/dL (70-110)
--- NOTE | 2022-04-10 12:40 | P.GSCN ---
History of Present Illness Consult date: 04/10/22 History of present illness: CHIEF COMPLAINT: Altered mental status HISTORY OF PRESENT ILLNESS: in all of this is a 70-year-old male who was just recently hospitalized last week for a partial small bowel obstruction at the anastomotic site and ileitis. Patient has history of lung cancer with metastatic disease to the spine. He is also on anticoagulation for A. fib. He has history of perforated sigmoid diverticulitis with colostomy and reversal as well as appendectomy. Patient brought back to the hospital due to altered mental status and UTI. Patient had evidence of atrial flutter with rapid ventricular response. Patient was seen by cardiology. Patient currently on IV heparin and IV Cardizem. Patient has a known history of dementia. He is a poor historian. Per chart patient did have an episode of vomiting. Computed tomography scan abdomen and pelvis completed that did show increased diffuse dilatation of the small bowel and colon compared to prior examination on 04/03/2022. This is concerning for partial small bowel obstruction versus ileus. No pneumatosis or portal venous gas noted. Persistent large amount of stool burden. Patient does have NG tube in place with brownish output. He had 900ml output throughout the night. Patient currently denies any abdominal pain. No bowel movement reported. PAST MEDICAL HISTORY: See list. PAST SURGICAL HISTORY: See list. MEDICATIONS: See list. ALLERGIES: See list. SOCIAL HISTORY: No illicit drug use. REVIEW OF SYSTEMS: CONSTITUTIONAL: Denies fever or chills. HEENT: Denies blurred vision, vision changes, or eye pain. Denies hemoptysis ENDOCRINE: Denies heat or cold intolerance. CARDIOVASCULAR: Denies chest pain or pressure. RESPIRATORY: No shortness of breath. GASTROINTESTINAL: please refer to HPI otherwise unremarkable NEURO: Denies history of seizures. PSYCH: No depression or suicidal ideation HEMATOLOGIC: Denies bleeding disorders. LYMPHATIC: The patient denies any lumps and bumps around the neck. GENITOURINARY: Denies any blood in urine or increased urinary frequency. MUSCULOSKELETAL: Denies myalgias. Denies joint swelling. Denies decreased range of motion beyond patients baseline. SKIN: Denies pruitis. Denies rash. PHYSICAL EXAM: VITAL SIGNS: Reviewed GENERAL: Well-developed in no acute distress. HEENT: No sclera icterus. Extraocular movements grossly intact. Moist buccal mucosa. Head is atraumatic, normocephalic. Hears conversational speech. No nasal drainage. NECK: Supple without lymphadenopathy. CHEST: Non-labored respirations and equal bilateral excursions. CARDIOVASCULAR: Palpable 2+ radial pulses. ABDOMEN: Soft. distended. NG tube in place MUSCULOSKELETAL: No clubbing or cyanosis. NEUROLOGIC: No focal or lateralizing signs. Cranial nerves II through XII grossly intact. PSYCH: Appropriate affect. Alert and oriented to person, place and time. SKIN: Well perfused. Good skin turgor. LABORATORY DATA: WBC 20.2 down to 16.6 Hgb 10.3 platelets 326 INR 1.1 Sodium 141 potassium 4.2 creatinine 0.80 Glucose 145 Troponin 0.048 BNP 3900 Urine drug screen positive for oxycodone and tricyclic antidepressants COVID-19 undetected IMAGING: Computed tomography scan abdomen and pelvis that did show increased diffuse dilatation of the small bowel and colon compared to prior examination on 04/03/2022. This is concerning for partial small bowel obstruction versus ileus. No pneumatosis or portal venous gas noted. Persistent large amount of stool burden. Stable small scattered lytic lesions throughout the osseous structures concerning for metastatic disease. Correlate with history of malignancy. Similar moderate right pleural effusion with associated atelectasis. ASSESSMENT: 1. Partial small bowel obstruction versus ileus noted on CAT scan 2. Recent admission with partial small bowel obstruction at the anastomotic site and ileitis 3. Prior history of abdominal surgeries 4. UTI 5. Altered mental status changes 6. Atrial flutter with RVR 7. History of lung cancer with metastatic disease to the spine 8. Moderate size right pleural effusion PLAN: -Keep patient nothing by mouth except for ice chips and popsicles -Continue NG tube for decompression -Check follow-up abdominal x-ray today and tomorrow -Continue supportive care -Continue antibiotics for UTI -Continue IV fluids -Cardiology management of the atrial flutter/A. fib Thank you for this consultation Physician Receiving Dock Checker note has been reviewed by physician. Signing provider agrees with the documented findings, assessment, and plan of care. Past Medical History Past Medical History: Cancer Additional Past Medical History / Comment(s): Patient previously had perforated sigmoid diverticulitis and had to establish colostomy which was reversed in August and has done well, back pain compression fx History of Any Multi-Drug Resistant Organisms: None Reported Past Surgical History: Appendectomy, Bowel Resection Additional Past Surgical History / Comment(s): colostomy reversed 11/19/13. Spinal surgery for cord compression from metastatic cancer Past Anesthesia/Blood Transfusion Reactions: No Reported Reaction Past Psychological History: No Psychological Hx Reported Smoking Status: Former smoker Past Alcohol Use History: Occasional Past Drug Use History: Marijuana - Past Family History Father Family Medical History: Cancer (bladder) Additional Family Medical History / Comment(s): 3 sisters, breast, kidney and lung cancer. Daughter(s) Family Medical History: Cancer (breast) Medications and Allergies Home Medications Medication Instructions Recorded Confirmed Type Cyclobenzaprine [Flexeril] 10 mg PO TID@0600,1400,2200 02/03/22 04/09/22 History Ipratropium-Albuterol Nebulize 3 ml INHALATION RT-Q8H 02/03/22 04/09/22 History [Duoneb 0.5 mg-3 mg/3 ml Soln] Lactulose 10 gm PO BID 03/27/22 04/09/22 History Psyllium Husk 100% [Metamucil 6 gm PO HS 03/27/22 04/09/22 History Packet] Sennosides [Senokot] 8.6 mg PO DAILY 03/27/22 04/09/22 History Tamsulosin [Flomax] 0.4 mg PO DAILY 03/27/22 04/09/22 History Apixaban [Eliquis] 5 mg PO BID #60 tab 03/28/22 04/09/22 Rx Omeprazole 20 mg PO DAILY@0600 04/02/22 04/09/22 History oxyCODONE-APAP 7.5-325MG [Percocet 1 tab PO Q6HR PRN 04/02/22 04/09/22 History 7.5-325 mg] Amoxic-Pot Clav 875-125Mg 1 tab PO Q12HR 10 Days #20 tab 04/06/22 04/09/22 Rx [Augmentin 875-125] Gabapentin [Neurontin] 300 mg PO TID@0600,1400,2200 3 04/06/22 04/09/22 Rx Days #9 cap Metoprolol Tartrate [Lopressor] 50 mg PO TID@0800,1400,2200 04/09/22 04/09/22 History Allergies Allergy/AdvReac Type Severity Reaction Status Date / Time cephalexin monohydrate Allergy Itching Verified 04/09/22 13:55 [From Keflex] Surgical - Exam Vital Signs Temp Pulse Resp BP Pulse Ox 98.2 F 152 H 20 100/86 97 04/09/22 12:50 04/09/22 12:50 04/09/22 12:50 04/09/22 12:50 04/09/22 12:50 Results - Labs 04/10/22 08:15 04/10/22 08:15 Abnormal Lab Results - Last 24 Hours (Table) 04/09/22 04/09/22 04/09/22 Range/Units 13:27 13:27 13:27 WBC 20.2 H (3.8-10.6) k/uL RBC (4.30-5.90) m/uL Hgb 12.2 L (13.0-17.5) gm/dL Hct (39.0-53.0) % MCHC 30.7 L (31.0-37.0) g/dL RDW 17.1 H (11.5-15.5) % Plt Count 480 H (150-450) k/uL Neutrophils # 16.8 H (1.3-7.7) k/uL PT (9.0-12.0) sec APTT (22.0-30.0) sec Carbon Dioxide 19 L (22-30) mmol/L BUN 32 H (9-20) mg/dL Glucose 134 H (74-99) mg/dL POC Glucose (mg/dL) (70-110) mg/dL Plasma Lactic Acid Jj (0.7-2.0) mmol/L Calcium (8.4-10.2) mg/dL Alkaline Phosphatase 141 H (38-126) U/L Troponin I (0.000-0.034) ng/mL Albumin 2.9 L (3.5-5.0) g/dL Urine Protein 1+ H (Negative) Urine Ketones 1+ H (Negative) Urine Blood Moderate H (Negative) Urine Bilirubin 1+ H (Negative) Ur Leukocyte Esterase Moderate H (Negative) Urine RBC 89 H (0-5) /hpf Urine WBC 15 H (0-5) /hpf Calcium Oxalate Crystal Moderate H (None) /hpf Urine Bacteria Rare H (None) /hpf Hyaline Casts 13 H (0-2) /lpf Urine Mucus Occasional H (None) /hpf Urine Yeast (Budding) Many H (None) /hpf Ur Oxycodone Screen Detected H (NotDetected) U Tricyclic Antidepress Detected H (NotDetected) 04/09/22 04/09/22 04/09/22 Range/Units 13:27 13:27 14:01 WBC (3.8-10.6) k/uL RBC (4.30-5.90) m/uL Hgb (13.0-17.5) gm/dL Hct (39.0-53.0) % MCHC (31.0-37.0) g/dL RDW (11.5-15.5) % Plt Count (150-450) k/uL Neutrophils # (1.3-7.7) k/uL PT (9.0-12.0) sec APTT (22.0-30.0) sec Carbon Dioxide (22-30) mmol/L BUN (9-20) mg/dL Glucose (74-99) mg/dL POC Glucose (mg/dL) 126 H (70-110) mg/dL Plasma Lactic Acid Jj 3.1 H* (0.7-2.0) mmol/L Calcium (8.4-10.2) mg/dL Alkaline Phosphatase (38-126) U/L Troponin I 0.054 H* (0.000-0.034) ng/mL Albumin (3.5-5.0) g/dL Urine Protein (Negative) Urine Ketones (Negative) Urine Blood (Negative) Urine Bilirubin (Negative) Ur Leukocyte Esterase (Negative) Urine RBC (0-5) /hpf Urine WBC (0-5) /hpf Calcium Oxalate Crystal (None) /hpf Urine Bacteria (None) /hpf Hyaline Casts (0-2) /lpf Urine Mucus (None) /hpf Urine Yeast (Budding) (None) /hpf Ur Oxycodone Screen (NotDetected) U Tricyclic Antidepress (NotDetected) 04/09/22 04/09/22 04/09/22 Range/Units 19:00 19:54 21:47 WBC (3.8-10.6) k/uL RBC (4.30-5.90) m/uL Hgb (13.0-17.5) gm/dL Hct (39.0-53.0) % MCHC (31.0-37.0) g/dL RDW (11.5-15.5) % Plt Count (150-450) k/uL Neutrophils # (1.3-7.7) k/uL PT (9.0-12.0) sec APTT (22.0-30.0) sec Carbon Dioxide (22-30) mmol/L BUN (9-20) mg/dL Glucose (74-99) mg/dL POC Glucose (mg/dL) 155 H (70-110) mg/dL Plasma Lactic Acid Jj (0.7-2.0) mmol/L Calcium (8.4-10.2) mg/dL Alkaline Phosphatase (38-126) U/L Troponin I 0.050 H* 0.048 H* (0.000-0.034) ng/mL Albumin (3.5-5.0) g/dL Urine Protein (Negative) Urine Ketones (Negative) Urine Blood (Negative) Urine Bilirubin (Negative) Ur Leukocyte Esterase (Negative) Urine RBC (0-5) /hpf Urine WBC (0-5) /hpf Calcium Oxalate Crystal (None) /hpf Urine Bacteria (None) /hpf Hyaline Casts (0-2) /lpf Urine Mucus (None) /hpf Urine Yeast (Budding) (None) /hpf Ur Oxycodone Screen (NotDetected) U Tricyclic Antidepress (NotDetected) 04/10/22 04/10/22 04/10/22 Range/Units 00:55 06:10 08:15 WBC (3.8-10.6) k/uL RBC (4.30-5.90) m/uL Hgb (13.0-17.5) gm/dL Hct (39.0-53.0) % MCHC (31.0-37.0) g/dL RDW (11.5-15.5) % Plt Count (150-450) k/uL Neutrophils # (1.3-7.7) k/uL PT (9.0-12.0) sec APTT 40.8 H (22.0-30.0) sec Carbon Dioxide (22-30) mmol/L BUN 27 H (9-20) mg/dL Glucose 145 H (74-99) mg/dL POC Glucose (mg/dL) 143 H (70-110) mg/dL Plasma Lactic Acid Jj (0.7-2.0) mmol/L Calcium 7.8 L (8.4-10.2) mg/dL Alkaline Phosphatase (38-126) U/L Troponin I (0.000-0.034) ng/mL Albumin (3.5-5.0) g/dL Urine Protein (Negative) Urine Ketones (Negative) Urine Blood (Negative) Urine Bilirubin (Negative) Ur Leukocyte Esterase (Negative) Urine RBC (0-5) /hpf Urine WBC (0-5) /hpf Calcium Oxalate Crystal (None) /hpf Urine Bacteria (None) /hpf Hyaline Casts (0-2) /lpf Urine Mucus (None) /hpf Urine Yeast (Budding) (None) /hpf Ur Oxycodone Screen (NotDetected) U Tricyclic Antidepress (NotDetected) 04/10/22 04/10/22 Range/Units 08:15 08:15 WBC 16.6 H (3.8-10.6) k/uL RBC 3.91 L (4.30-5.90) m/uL Hgb 10.3 L (13.0-17.5) gm/dL Hct 34.1 L (39.0-53.0) % MCHC 30.1 L (31.0-37.0) g/dL RDW 17.1 H (11.5-15.5) % Plt Count (150-450) k/uL Neutrophils # 14.8 H (1.3-7.7) k/uL PT 12.1 H (9.0-12.0) sec APTT 41.8 H (22.0-30.0) sec Carbon Dioxide (22-30) mmol/L BUN (9-20) mg/dL Glucose (74-99) mg/dL POC Glucose (mg/dL) (70-110) mg/dL Plasma Lactic Acid Jj (0.7-2.0) mmol/L Calcium (8.4-10.2) mg/dL Alkaline Phosphatase (38-126) U/L Troponin I (0.000-0.034) ng/mL Albumin (3.5-5.0) g/dL Urine Protein (Negative) Urine Ketones (Negative) Urine Blood (Negative) Urine Bilirubin (Negative) Ur Leukocyte Esterase (Negative) Urine RBC (0-5) /hpf Urine WBC (0-5) /hpf Calcium Oxalate Crystal (None) /hpf Urine Bacteria (None) /hpf Hyaline Casts (0-2) /lpf Urine Mucus (None) /hpf Urine Yeast (Budding) (None) /hpf Ur Oxycodone Screen (NotDetected) U Tricyclic Antidepress (NotDetected) Microbiology - Last 24 Hours (Table) 04/09/22 13:27 Urine Culture - Preliminary Urine,Voided Diabetes panel 04/09/22 04/10/22 Range/Units 13:27 08:15 Sodium 137 141 (137-145) mmol/L Potassium 4.5 4.2 (3.5-5.1) mmol/L Chloride 104 107 (98-107) mmol/L Carbon Dioxide 19 L 24 (22-30) mmol/L BUN 32 H 27 H (9-20) mg/dL Creatinine 0.97 0.80 (0.66-1.25) mg/dL Glucose 134 H 145 H (74-99) mg/dL Calcium 8.9 7.8 L (8.4-10.2) mg/dL AST 23 (17-59) U/L ALT 13 (4-49) U/L Alkaline Phosphatase 141 H (38-126) U/L Total Protein 6.4 (6.3-8.2) g/dL Albumin 2.9 L (3.5-5.0) g/dL Calcium panel 04/09/22 04/10/22 Range/Units 13:27 08:15 Calcium 8.9 7.8 L (8.4-10.2) mg/dL Albumin 2.9 L (3.5-5.0) g/dL Pituitary panel 04/09/22 04/10/22 Range/Units 13:27 08:15 Sodium 137 141 (137-145) mmol/L Potassium 4.5 4.2 (3.5-5.1) mmol/L Chloride 104 107 (98-107) mmol/L Carbon Dioxide 19 L 24 (22-30) mmol/L BUN 32 H 27 H (9-20) mg/dL Creatinine 0.97 0.80 (0.66-1.25) mg/dL Glucose 134 H 145 H (74-99) mg/dL Calcium 8.9 7.8 L (8.4-10.2) mg/dL Adrenal panel 04/09/22 04/10/22 Range/Units 13:27 08:15 Sodium 137 141 (137-145) mmol/L Potassium 4.5 4.2 (3.5-5.1) mmol/L Chloride 104 107 (98-107) mmol/L Carbon Dioxide 19 L 24 (22-30) mmol/L BUN 32 H 27 H (9-20) mg/dL Creatinine 0.97 0.80 (0.66-1.25) mg/dL Glucose 134 H 145 H (74-99) mg/dL Calcium 8.9 7.8 L (8.4-10.2) mg/dL Total Bilirubin 0.6 (0.2-1.3) mg/dL AST 23 (17-59) U/L ALT 13 (4-49) U/L Alkaline Phosphatase 141 H (38-126) U/L Total Protein 6.4 (6.3-8.2) g/dL Albumin 2.9 L (3.5-5.0) g/dL
--- NOTE | 2022-04-10 14:05 | P.CNPUL ---
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 Patient was in the hospital last week and he was discharged to half-way on 04/06/2022. During his last admission, patient was treated for sepsis, urinary tract infection, right pleural effusion and he also had bacteremia from urinary tract infection. His other medical problems included atrial fibrillation with RVR, underlying COPD, and he had a picture of partial small bowel obstruction seen and evaluated by general surgery during his last admission. Patient was readmitted yesterday mostly with symptoms of altered mental status and possible urinary tract infection. He was also noted to have atrial flutter with RVR. Seen by cardiology on consultation, and he is on IV heparin as well as IV Cardizem. The patient is not a great historian, but he was appropriate enough to know that he was in the hospital and he has metastatic lung cancer, and today I even discussed the option of having hospice evaluation and possibly consider comfort care measures. Patient seems to be agreeable, and he would definitely like to have hospice discuss his condition and plans with his daughter. I saw the patient for abnormal chest x-ray and I recommended an ultrasound of the chest, he was found to have a 6.8 cm right pleural effusion, however considering his overall condition and status and the fact that the patient has very poor out come and poor prognosis, I felt there is no need to recommend thoracentesis at this point. My recommendation is to seriously consider hospice on this patient. CT of the abdomen and pelvis showed diffuse delta patient with a small bowel consistent with partial small bowel obstruction versus ileus. Patient was also found to have small scattered lytic lesions throughout the osseous structures consistent with metastatic disease to the bones. In addition to all of this there is a moderate right-sided pleural effusion with associated atelectasis. Review of Systems CONSTITUTIONAL: Generalized weakness, fatigue, weight loss. HEENT: Negative CARDIOVASCULAR: Negative RESPIRATORY: Shortness of breath and intermittent cough GASTROINTESTINAL: As noted in HPI HEMATOLOGIC: Negative GENITOURINARY: Negative SKIN: Negative Psychiatric: Negative Past Medical History Past Medical History: Cancer Additional Past Medical History / Comment(s): Patient previously had perforated sigmoid diverticulitis and had to establish colostomy which was reversed in August and has done well, back pain compression fx History of Any Multi-Drug Resistant Organisms: None Reported Past Surgical History: Appendectomy, Bowel Resection Additional Past Surgical History / Comment(s): colostomy reversed 11/19/13. Spinal surgery for cord compression from metastatic cancer Past Anesthesia/Blood Transfusion Reactions: No Reported Reaction Past Psychological History: No Psychological Hx Reported Smoking Status: Former smoker Past Alcohol Use History: Occasional Past Drug Use History: Marijuana - Past Family History Father Family Medical History: Cancer (bladder) Additional Family Medical History / Comment(s): 3 sisters, breast, kidney and lung cancer. Daughter(s) Family Medical History: Cancer (breast) Medications and Allergies Home Medications Medication Instructions Recorded Confirmed Type Cyclobenzaprine [Flexeril] 10 mg PO TID@0600,1400,2200 02/03/22 04/09/22 History Ipratropium-Albuterol Nebulize 3 ml INHALATION RT-Q8H 02/03/22 04/09/22 History [Duoneb 0.5 mg-3 mg/3 ml Soln] Lactulose 10 gm PO BID 03/27/22 04/09/22 History Psyllium Husk 100% [Metamucil 6 gm PO HS 03/27/22 04/09/22 History Packet] Sennosides [Senokot] 8.6 mg PO DAILY 03/27/22 04/09/22 History Tamsulosin [Flomax] 0.4 mg PO DAILY 03/27/22 04/09/22 History Apixaban [Eliquis] 5 mg PO BID #60 tab 03/28/22 04/09/22 Rx Omeprazole 20 mg PO DAILY@0600 04/02/22 04/09/22 History oxyCODONE-APAP 7.5-325MG [Percocet 1 tab PO Q6HR PRN 04/02/22 04/09/22 History 7.5-325 mg] Amoxic-Pot Clav 875-125Mg 1 tab PO Q12HR 10 Days #20 tab 04/06/22 04/09/22 Rx [Augmentin 875-125] Gabapentin [Neurontin] 300 mg PO TID@0600,1400,2200 3 04/06/22 04/09/22 Rx Days #9 cap Metoprolol Tartrate [Lopressor] 50 mg PO TID@0800,1400,2200 04/09/22 04/09/22 History Allergies Allergy/AdvReac Type Severity Reaction Status Date / Time cephalexin monohydrate Allergy Itching Verified 04/09/22 13:55 [From Keflex] Physical Exam Vitals: Vital Signs Temp Pulse Pulse Resp BP BP Pulse Ox 04/10/22 11:52 92 04/10/22 11:41 92 98 04/10/22 08:53 95 04/10/22 08:43 95 04/10/22 08:00 97.7 F 91 17 91/61 98 04/10/22 04:10 93 04/10/22 03:57 107 H 04/10/22 03:44 98.5 F 120 H 16 116/74 95 04/09/22 23:26 98.7 F 157 H 18 108/77 96 04/09/22 19:53 99.0 F 146 H 18 111/69 93 L 04/09/22 19:46 146 H 04/09/22 19:34 148 H 94 L 04/09/22 19:04 141 H 20 118/68 94 L 04/09/22 18:45 130 H 20 90/68 94 L 04/09/22 18:15 137 H 20 108/83 97 04/09/22 17:52 98.9 F 131 H 20 106/83 94 L 04/09/22 16:19 121 H 20 105/67 94 L 04/09/22 16:15 113 H 20 94 L 04/09/22 16:09 120 H 20 117/75 95 04/09/22 16:03 114 H 20 107/57 94 L 04/09/22 15:58 123 H 18 100/78 93 L 04/09/22 15:43 123 H 20 114/61 95 04/09/22 15:36 133 H 20 108/72 98 04/09/22 15:24 149 H 22 127/89 94 L 04/09/22 14:06 154 H 22 86/44 96 Intake and Output 04/09/22 04/10/22 04/10/22 22:59 06:59 14:59 Intake Total 300 104.556 228.779 Output Total 1275 Balance 300 -1170.444 228.779 Intake: Intake, IV Titration 104.556 228.779 Amount Diltiazem 125 mg In 30 118.25 Sodium Chloride 0.9% 100 ml @ Per Protocol IV .Q0M KRISTIAN Rx#:[id number] Heparin Sod,Pork in 0.45% 74.556 110.529 NaCl 25,000 unit In 0.45 % NaCl 1 250ml.bag @ 7.6 UNITS/KG/HR 9.963 mls/hr IV .Q24H KRISTIAN Rx#: [id number] Oral 300 Output: Gastric Drainage 900 Urine 375 Other: Voiding Method Indwelling Catheter Indwelling Catheter Indwelling Catheter Weight 131.088 kg 134.5 kg Physical Exam: Revealed 71-year-old white male frail looking, chronically ill-lo oking, on 3 L nasal cannula, not in distress. Head: Atraumatic, normocephalic. HEENT:[Neck is supple.] [No neck masses.] [No thyromegaly.] [No JVD.] Pale conjunctivae no icterus. Dry mucous membranes. Chest: [Diminished breath sounds at the bases with crackles especially at the right base. No rhonchi and no wheezes Cardiac Exam: Irregular irregular rhythm, 2/6 systolic murmur throughout the pre cordium. Abdomen: [Obese, Soft, nontender, no megaly, no rebound, no guarding, negative bowel sounds. Extremities: [No clubbing, no edema, no cyanosis.] Neurological Exam: Patient is arousable he knows that he is in the hospital, aware of his multiple medical problems, no gross focal deficits except seems to be generally weak. Psychiatric: Normal mood, flat affect, minimal confusion as far as his mental status is concerned. Results - Laboratory Findings CBC and BMP: 04/10/22 08:15 04/10/22 08:15 PT/INR, D-dimer PT 12.1 sec (9.0-12.0) H 04/10/22 08:15 INR 1.1 (<1.2) 04/10/22 08:15 Abnormal lab findings: Abnormal Labs 04/09/22 04/09/22 04/09/22 13:27 13:27 13:27 WBC 20.2 H RBC Hgb 12.2 L Hct MCHC 30.7 L RDW 17.1 H Plt Count 480 H Neutrophils # 16.8 H PT APTT Carbon Dioxide 19 L BUN 32 H Glucose 134 H POC Glucose (mg/dL) Plasma Lactic Acid Jj Calcium Alkaline Phosphatase 141 H Troponin I Albumin 2.9 L Urine Protein 1+ H Urine Ketones 1+ H Urine Blood Moderate H Urine Bilirubin 1+ H Ur Leukocyte Esterase Moderate H Urine RBC 89 H Urine WBC 15 H Calcium Oxalate Crystal Moderate H Urine Bacteria Rare H Hyaline Casts 13 H Urine Mucus Occasional H Urine Yeast (Budding) Many H Ur Oxycodone Screen Detected H U Tricyclic Antidepress Detected H 04/09/22 04/09/22 04/09/22 13:27 13:27 14:01 WBC RBC Hgb Hct MCHC RDW Plt Count Neutrophils # PT APTT Carbon Dioxide BUN Glucose POC Glucose (mg/dL) 126 H Plasma Lactic Acid Jj 3.1 H* Calcium Alkaline Phosphatase Troponin I 0.054 H* Albumin Urine Protein Urine Ketones Urine Blood Urine Bilirubin Ur Leukocyte Esterase Urine RBC Urine WBC Calcium Oxalate Crystal Urine Bacteria Hyaline Casts Urine Mucus Urine Yeast (Budding) Ur Oxycodone Screen U Tricyclic Antidepress 04/09/22 04/09/22 04/09/22 19:00 19:54 21:47 WBC RBC Hgb Hct MCHC RDW Plt Count Neutrophils # PT APTT Carbon Dioxide BUN Glucose POC Glucose (mg/dL) 155 H Plasma Lactic Acid Jj Calcium Alkaline Phosphatase Troponin I 0.050 H* 0.048 H* Albumin Urine Protein Urine Ketones Urine Blood Urine Bilirubin Ur Leukocyte Esterase Urine RBC Urine WBC Calcium Oxalate Crystal Urine Bacteria Hyaline Casts Urine Mucus Urine Yeast (Budding) Ur Oxycodone Screen U Tricyclic Antidepress 04/10/22 04/10/22 04/10/22 00:55 06:10 08:15 WBC RBC Hgb Hct MCHC RDW Plt Count Neutrophils # PT APTT 40.8 H Carbon Dioxide BUN 27 H Glucose 145 H POC Glucose (mg/dL) 143 H Plasma Lactic Acid Jj Calcium 7.8 L Alkaline Phosphatase Troponin I Albumin Urine Protein Urine Ketones Urine Blood Urine Bilirubin Ur Leukocyte Esterase Urine RBC Urine WBC Calcium Oxalate Crystal Urine Bacteria Hyaline Casts Urine Mucus Urine Yeast (Budding) Ur Oxycodone Screen U Tricyclic Antidepress 04/10/22 04/10/22 04/10/22 08:15 08:15 11:26 WBC 16.6 H RBC 3.91 L Hgb 10.3 L Hct 34.1 L MCHC 30.1 L RDW 17.1 H Plt Count Neutrophils # 14.8 H PT 12.1 H APTT 41.8 H Carbon Dioxide BUN Glucose POC Glucose (mg/dL) 148 H Plasma Lactic Acid Jj Calcium Alkaline Phosphatase Troponin I Albumin Urine Protein Urine Ketones Urine Blood Urine Bilirubin Ur Leukocyte Esterase Urine RBC Urine WBC Calcium Oxalate Crystal Urine Bacteria Hyaline Casts Urine Mucus Urine Yeast (Budding) Ur Oxycodone Screen U Tricyclic Antidepress - Diagnostic Findings Chest x-ray: image reviewed (As noted in HPI) Assessment and Plan Assessment: Impression: Acute metabolic encephalopathy Acute partial small bowel obstruction, possible ileus Recurrent urinary tract infection Metastatic pulmonary adenocarcinoma Paroxysmal atrial fibrillation with RVR History of compression fracture/spine requiring surgery. Patient had cord compression. History of colostomy and reversal. Related to perforation of sigmoid diverticulitis. Recommendation: Agree with the present treatment plan. Agree with heparin and Cardizem. Agree with antibiotics, General surgery is seeing the patient for his small bowel obstruction Discussed with the patient is overall condition and the issue related to his metastatic lung cancer and I recommended mostly hospice and comfort care measures. Will consult hospice to evaluate the patient No plans to perform thoracentesis on the patient. Will follow as needed. Time with Patient: Greater than 30
--- NOTE | 2022-04-10 15:13 | XR ---
EXAMINATION TYPE: XR abdomen 2V DATE OF EXAM: 04/10/2022 COMPARISON: NONE HISTORY: Pain TECHNIQUE: One view abdominal series FINDINGS: NG tube seen with multiple dilated large and small bowel loops. Bilateral infiltrate and pleural effu mariah. Postsurgical change vertebral canal. Degenerative change is also noted. Arthropathy of the hips . Fractures involving the right lower rib cage approximately level the ninth 10th ribs. Pathologic fr acture is not excluded. Vertebral plasty suggested. IMPRESSION: 1. Markedly dilated bowel loops in a pattern suspicious for distal obstruction. 2. Bilateral infiltrate and pleural effusion. 3. Fractures involving the anterior lateral margin of the right ninth and 10th ribs. See above.
[2022-04-10] MEDS: HEPARIN SOD,PORK IN 0.45% NACL 25,000 UNIT in 0.45% NACL 1 250ML.BAG IV SCH (15:51)
[2022-04-10 16:22] LABS: Glucose,Whole Blood 139 mg/dL (70-110)
[2022-04-10 20:18] LABS: Glucose,Whole Blood 142 mg/dL (70-110)
--- NOTE | 2022-04-11 00:36 | P.HPIM ---
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 Patient was also found to have atrial flutter with rapid regular rate in the ER. Patient is poor historian but otherwise awake alert and oriented x3. Patient is also complaining of nausea and abdominal discomfort. Patient was sent to hospital from long term. Denies any complaints of chest pain or shortness of breath. No fever no chills. No cough or sputum production. On admission EKG showed atrial flutter with rapid regular rate. Patient was started on Cardizem drip and heparin drip. Chest x-ray showed similar right lower lobe infiltrate and pleural effusions which are chronic. CT head showed no intracranial process. CT abdomen pelvis reveals possible s lightly worsening partial small bowel obstruction versus ileus. Metastatic disease as well. Laboratory data showed WBC 20.2 hemoglobin 12.1 platelets 480 Sodium 137 potassium 4.5 chloride 104 bicarb is 19 BUN 3020 creatinine 0.97 and blood sugar is 134 and lactic acid 3.1 troponin 0.054 and 0.050 proBNP 3900 Albumin 2.9 Urinalysis showed moderate blood nitrite negative moderate leukocyte esterase elevated RBCs and WBCs Toxicology showed oxycodone and tricyclic antidepressants . Coronavirus PCR not detected Review of Systems Constitutional: Patient denies any fever or chills . Generalized weakness allergy. Abdomen: Patient does have nausea no episodes of vomiting. Does have abdominal pain. Cardiovascular: Patient denies any chest pain. Positive r short of breath no palpitations. Respiratory: patient denied any cough is from production. No shortness of br eath Neurologic: Patient denied any numbness or tingling headache. Musculoskeletal: Patient denies any complaints of joint swelling or deformity. Skin: Negative Psychiatric: Negative Endocrine: No heat or cold intolerance. No recent weight gain. Genitourinary: No dysuria or hematuria. All other 14 point ROS negative except the above Past Medical History Past Medical History: Cancer Additional Past Medical History / Comment(s): Patient previously had perforated sigmoid diverticulitis and had to establish colostomy which was reversed in August and has done well, back pain compression fx History of Any Multi-Drug Resistant Organisms: None Reported Past Surgical History: Appendectomy, Bowel Resection Additional Past Surgical History / Comment(s): colostomy reversed 11/19/13. Spinal surgery for cord compression from metastatic cancer Past Anesthesia/Blood Transfusion Reactions: No Reported Reaction Past Psychological History: No Psychological Hx Reported Smoking Status: Former smoker Past Alcohol Use History: Occasional Past Drug Use History: Marijuana - Past Family History Father Family Medical History: Cancer (bladder) Additional Family Medical History / Comment(s): 3 sisters, breast, kidney and lung cancer. Daughter(s) Family Medical History: Cancer (breast) Medications and Allergies Home Medications Medication Instructions Recorded Confirmed Type Cyclobenzaprine [Flexeril] 10 mg PO TID@0600,1400,2200 02/03/22 04/09/22 History Ipratropium-Albuterol Nebulize 3 ml INHALATION RT-Q8H 02/03/22 04/09/22 History [Duoneb 0.5 mg-3 mg/3 ml Soln] Lactulose 10 gm PO BID 03/27/22 04/09/22 History Psyllium Husk 100% [Metamucil 6 gm PO HS 03/27/22 04/09/22 History Packet] Sennosides [Senokot] 8.6 mg PO DAILY 03/27/22 04/09/22 History Tamsulosin [Flomax] 0.4 mg PO DAILY 03/27/22 04/09/22 History Apixaban [Eliquis] 5 mg PO BID #60 tab 03/28/22 04/09/22 Rx Omeprazole 20 mg PO DAILY@0600 04/02/22 04/09/22 History oxyCODONE-APAP 7.5-325MG [Percocet 1 tab PO Q6HR PRN 04/02/22 04/09/22 History 7.5-325 mg] Amoxic-Pot Clav 875-125Mg 1 tab PO Q12HR 10 Days #20 tab 04/06/22 04/09/22 Rx [Augmentin 875-125] Gabapentin [Neurontin] 300 mg PO TID@0600,1400,2200 3 04/06/22 04/09/22 Rx Days #9 cap Metoprolol Tartrate [Lopressor] 50 mg PO TID@0800,1400,2200 04/09/22 04/09/22 History Allergies Allergy/AdvReac Type Severity Reaction Status Date / Time cephalexin monohydrate Allergy Itching Verified 04/09/22 13:55 [From Keflex] Physical Exam Vitals: Vital Signs Temp Pulse Pulse Resp BP BP Pulse Ox 04/10/22 08:53 95 04/10/22 08:43 95 04/10/22 08:00 97.7 F 91 17 91/61 98 04/10/22 04:10 93 04/10/22 03:57 107 H 04/10/22 03:44 98.5 F 120 H 16 116/74 95 04/09/22 23:26 98.7 F 157 H 18 108/77 96 04/09/22 19:53 99.0 F 146 H 18 111/69 93 L 04/09/22 19:46 146 H 04/09/22 19:34 148 H 94 L 04/09/22 19:04 141 H 20 118/68 94 L 04/09/22 18:45 130 H 20 90/68 94 L 04/09/22 18:15 137 H 20 108/83 97 04/09/22 17:52 98.9 F 131 H 20 106/83 94 L 04/09/22 16:19 121 H 20 105/67 94 L 04/09/22 16:15 113 H 20 94 L 04/09/22 16:09 120 H 20 117/75 95 04/09/22 16:03 114 H 20 107/57 94 L 04/09/22 15:58 123 H 18 100/78 93 L 04/09/22 15:43 123 H 20 114/61 95 04/09/22 15:36 133 H 20 108/72 98 04/09/22 15:24 149 H 22 127/89 94 L 04/09/22 14:06 154 H 22 86/44 96 04/09/22 12:50 98.2 F 152 H 20 100/86 97 Intake and Output 04/09/22 04/10/22 04/10/22 22:59 06:59 14:59 Intake Total 300 104.556 64.5 Output Total 1275 Balance 300 -1170.444 64.5 Intake: Intake, IV Titration 104.556 64.5 Amount Diltiazem 125 mg In 30 64.5 Sodium Chloride 0.9% 100 ml @ Per Protocol IV .Q0M [facility] Rx#:[id number] Heparin Sod,Pork in 0.45% 74.556 NaCl 25,000 unit In 0.45 % NaCl 1 250ml.bag @ 7.6 UNITS/KG/HR 9.963 mls/hr IV .Q24H [facility] Rx#: [id number] Oral 300 Output: Gastric Drainage 900 Urine 375 Other: Voiding Method Indwelling Catheter Indwelling Catheter Indwelling Catheter Weight 131.088 kg 134.5 kg PHYSICAL EXAMINATION: Patient is lying in the bed comfortably, no acute distress, awake alert and oriented.. Lethargic and weak. HEENT: Normocephalic. Neck is supple. Pupils reactive. Nostrils clear. Oral cavity is moist. Neck reveals no JVD, carotid bruits, or thyromegaly. CHEST EXAMINATION: Trachea is central. Symmetrical expansion. Bibasilar d iminished sounds.. Irregular rhythm. CARDIAC: Normal S1, S2 with no gallops. No murmurs ABDOMEN: Soft. Mild distention. Bowel sounds diminished. Nontender. No organomegaly. No abdominal bruits. Extremities: reveal no edema. No clubbing or cyanosis Neurologically awake, alert, oriented x2-3 with well-coordinated movements. No gross focal deficits noted Skin: No rash or skin lesions. Psychiatric: Coperative. Nonsuicidal, Musculoskeletal: No joint swelling or deformity. Normal range of motion. Results CBC & Chem 7: 04/10/22 08:15 04/10/22 08:15 Labs: Abnormal Lab Results - Last 24 Hours (Table) 04/09/22 04/09/22 04/09/22 Range/Units 13:27 13:27 13:27 WBC 20.2 H (3.8-10.6) k/uL RBC (4.30-5.90) m/uL Hgb 12.2 L (13.0-17.5) gm/dL Hct (39.0-53.0) % MCHC 30.7 L (31.0-37.0) g/dL RDW 17.1 H (11.5-15.5) % Plt Count 480 H (150-450) k/uL Neutrophils # 16.8 H (1.3-7.7) k/uL PT (9.0-12.0) sec APTT (22.0-30.0) sec Carbon Dioxide 19 L (22-30) mmol/L BUN 32 H (9-20) mg/dL Glucose 134 H (74-99) mg/dL POC Glucose (mg/dL) (70-110) mg/dL Plasma Lactic Acid Jj (0.7-2.0) mmol/L Calcium (8.4-10.2) mg/dL Alkaline Phosphatase 141 H (38-126) U/L Troponin I (0.000-0.034) ng/mL Albumin 2.9 L (3.5-5.0) g/dL Urine Protein 1+ H (Negative) Urine Ketones 1+ H (Negative) Urine Blood Moderate H (Negative) Urine Bilirubin 1+ H (Negative) Ur Leukocyte Esterase Moderate H (Negative) Urine RBC 89 H (0-5) /hpf Urine WBC 15 H (0-5) /hpf Calcium Oxalate Crystal Moderate H (None) /hpf Urine Bacteria Rare H (None) /hpf Hyaline Casts 13 H (0-2) /lpf Urine Mucus Occasional H (None) /hpf Urine Yeast (Budding) Many H (None) /hpf Ur Oxycodone Screen Detected H (NotDetected) U Tricyclic Antidepress Detected H (NotDetected) 04/09/22 04/09/22 04/09/22 Range/Units 13:27 13:27 14:01 WBC (3.8-10.6) k/uL RBC (4.30-5.90) m/uL Hgb (13.0-17.5) gm/dL Hct (39.0-53.0) % MCHC (31.0-37.0) g/dL RDW (11.5-15.5) % Plt Count (150-450) k/uL Neutrophils # (1.3-7.7) k/uL PT (9.0-12.0) sec APTT (22.0-30.0) sec Carbon Dioxide (22-30) mmol/L BUN (9-20) mg/dL Glucose (74-99) mg/dL POC Glucose (mg/dL) 126 H (70-110) mg/dL Plasma Lactic Acid Jj 3.1 H* (0.7-2.0) mmol/L Calcium (8.4-10.2) mg/dL Alkaline Phosphatase (38-126) U/L Troponin I 0.054 H* (0.000-0.034) ng/mL Albumin (3.5-5.0) g/dL Urine Protein (Negative) Urine Ketones (Negative) Urine Blood (Negative) Urine Bilirubin (Negative) Ur Leukocyte Esterase (Negative) Urine RBC (0-5) /hpf Urine WBC (0-5) /hpf Calcium Oxalate Crystal (None) /hpf Urine Bacteria (None) /hpf Hyaline Casts (0-2) /lpf Urine Mucus (None) /hpf Urine Yeast (Budding) (None) /hpf Ur Oxycodone Screen (NotDetected) U Tricyclic Antidepress (NotDetected) 04/09/22 04/09/22 04/09/22 Range/Units 19:00 19:54 21:47 WBC (3.8-10.6) k/uL RBC (4.30-5.90) m/uL Hgb (13.0-17.5) gm/dL Hct (39.0-53.0) % MCHC (31.0-37.0) g/dL RDW (11.5-15.5) % Plt Count (150-450) k/uL Neutrophils # (1.3-7.7) k/uL PT (9.0-12.0) sec APTT (22.0-30.0) sec Carbon Dioxide (22-30) mmol/L BUN (9-20) mg/dL Glucose (74-99) mg/dL POC Glucose (mg/dL) 155 H (70-110) mg/dL Plasma Lactic Acid Jj (0.7-2.0) mmol/L Calcium (8.4-10.2) mg/dL Alkaline Phosphatase (38-126) U/L Troponin I 0.050 H* 0.048 H* (0.000-0.034) ng/mL Albumin (3.5-5.0) g/dL Urine Protein (Negative) Urine Ketones (Negative) Urine Blood (Negative) Urine Bilirubin (Negative) Ur Leukocyte Esterase (Negative) Urine RBC (0-5) /hpf Urine WBC (0-5) /hpf Calcium Oxalate Crystal (None) /hpf Urine Bacteria (None) /hpf Hyaline Casts (0-2) /lpf Urine Mucus (None) /hpf Urine Yeast (Budding) (None) /hpf Ur Oxycodone Screen (NotDetected) U Tricyclic Antidepress (NotDetected) 04/10/22 04/10/22 04/10/22 Range/Units 00:55 06:10 08:15 WBC (3.8-10.6) k/uL RBC (4.30-5.90) m/uL Hgb (13.0-17.5) gm/dL Hct (39.0-53.0) % MCHC (31.0-37.0) g/dL RDW (11.5-15.5) % Plt Count (150-450) k/uL Neutrophils # (1.3-7.7) k/uL PT (9.0-12.0) sec APTT 40.8 H (22.0-30.0) sec Carbon Dioxide (22-30) mmol/L BUN 27 H (9-20) mg/dL Glucose 145 H (74-99) mg/dL POC Glucose (mg/dL) 143 H (70-110) mg/dL Plasma Lactic Acid Jj (0.7-2.0) mmol/L Calcium 7.8 L (8.4-10.2) mg/dL Alkaline Phosphatase (38-126) U/L Troponin I (0.000-0.034) ng/mL Albumin (3.5-5.0) g/dL Urine Protein (Negative) Urine Ketones (Negative) Urine Blood (Negative) Urine Bilirubin (Negative) Ur Leukocyte Esterase (Negative) Urine RBC (0-5) /hpf Urine WBC (0-5) /hpf Calcium Oxalate Crystal (None) /hpf Urine Bacteria (None) /hpf Hyaline Casts (0-2) /lpf Urine Mucus (None) /hpf Urine Yeast (Budding) (None) /hpf Ur Oxycodone Screen (NotDetected) U Tricyclic Antidepress (NotDetected) 04/10/22 04/10/22 Range/Units 08:15 08:15 WBC 16.6 H (3.8-10.6) k/uL RBC 3.91 L (4.30-5.90) m/uL Hgb 10.3 L (13.0-17.5) gm/dL Hct 34.1 L (39.0-53.0) % MCHC 30.1 L (31.0-37.0) g/dL RDW 17.1 H (11.5-15.5) % Plt Count (150-450) k/uL Neutrophils # 14.8 H (1.3-7.7) k/uL PT 12.1 H (9.0-12.0) sec APTT 41.8 H (22.0-30.0) sec Carbon Dioxide (22-30) mmol/L BUN (9-20) mg/dL Glucose (74-99) mg/dL POC Glucose (mg/dL) (70-110) mg/dL Plasma Lactic Acid Jj (0.7-2.0) mmol/L Calcium (8.4-10.2) mg/dL Alkaline Phosphatase (38-126) U/L Troponin I (0.000-0.034) ng/mL Albumin (3.5-5.0) g/dL Urine Protein (Negative) Urine Ketones (Negative) Urine Blood (Negative) Urine Bilirubin (Negative) Ur Leukocyte Esterase (Negative) Urine RBC (0-5) /hpf Urine WBC (0-5) /hpf Calcium Oxalate Crystal (None) /hpf Urine Bacteria (None) /hpf Hyaline Casts (0-2) /lpf Urine Mucus (None) /hpf Urine Yeast (Budding) (None) /hpf Ur Oxycodone Screen (NotDetected) U Tricyclic Antidepress (NotDetected) Microbiology - Last 24 Hours (Table) 04/09/22 13:27 Urine Culture - Preliminary Urine,Voided Thrombosis Risk Factor Assmnt - DVT/VTE Prophylaxis DVT/VTE Prophylaxis: Pharmacologic Prophylaxis ordered - Choose All That Apply Any of the Below Risk Factors Present?: Yes Each Factor Represents 1 point: Medical pt on bed rest, Obesity (BMI >25) Each Risk Factor Represents 2 Points: Age 61-74 years Thrombosis Risk Factor Assessment Total Risk Factor Score: 4 Thrombosis Risk Factor Assessment Level: Moderate Risk Assessment and Plan Assessment: Acute metabolic encephalopathy Acute urinary tract infection and recurrent UTI Acute partial small bowel obstruction versus ileus Atrial fibrillation with rapid regular rate 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 History of compression fractures/spine requiring surgery. History of colostomy and reversal due to perforation of the sigmoid diverticulitis. DVT and GI prophylaxis Plan: Patient is being currently on Cardizem drip and heparin drip. Continue with nothing by mouth and NG tube. General surgery and cardiology and pulmonary is on board. Patient does have metastatic lung cancer and other multiple medical problems and comorbid conditions. Patient wishes to proceed with hospice care and comfort measures at this time. Final decision will be made after family discussion. Prognosis is poor at this time. Time with Patient: Greater than 30
[2022-04-11] MEDS: LACTATED RINGERS 1,000 ML IV SCH ×4 (03:00→22:32)
[2022-04-11] MEDS: IPRATROPIUM-ALBUTEROL 3 ML NEB INHALATION SCH ×5 (03:21→21:16)
[2022-04-11] MEDS: VANCOMYCIN 2,000 MG in SODIUM CHLORIDE 0.9% 500 ML 500 ML IVPB SCH ×2 (04:02→18:02)
[2022-04-11] MEDS: GABAPENTIN 300 MG CAP PO SCH ×3 (05:59→21:34)
[2022-04-11] MEDS: PIPERACILLIN-TAZOBACTAM 3.375 GM in SODIUM CHLORIDE 0.9% 100 ML IVPB SCH ×3 (05:59→22:31)
[2022-04-11] MEDS: TAMSULOSIN 0.4 MG CAP.ER.24H PO SCH (08:03)
[2022-04-11 08:21] LABS: African American GFR (CKD) >90 (>60 ml/min/1.73 sqM); Anion Gap 11 mmol/L; Blood Urea Nitrogen 25 mg/dL (9-20); Carbon Dioxide 22 mmol/L (22-30); Chloride 108 mmol/L (98-107); Glucose 131 mg/dL (74-99); Non-African American GFR(CKD) >90 (>60 ml/min/1.73 sqM); Sodium 141 mmol/L (137-145)
[2022-04-11] MEDS: HEPARIN SOD,PORK IN 0.45% NACL 25,000 UNIT in 0.45% NACL 1 250ML.BAG IV SCH ×2 (08:21→15:18)
[2022-04-11] MEDS: methylPREDNISolone SOD SUCCI 40 MG/ML 1 ML VIAL IV SCH ×2 (08:22→20:00)
[2022-04-11] MEDS: PANTOPRAZOLE 40 MG/10 ML VIAL IV SCH (08:22)
--- NOTE | 2022-04-11 08:38 | XR ---
EXAMINATION TYPE: XR abdomen 2V DATE OF EXAM: 04/11/2022 COMPARISON: 04/10/2022 HISTORY: Pain TECHNIQUE: Five view abdominal series FINDINGS: NG tube seen with multiple dilated large and small bowel loops. Bilateral infiltrate and pleural effu mariah. Postsurgical change vertebral canal. Degenerative change is also noted. Arthropathy of the hips . Fractures involving the right lower rib cage approximately level the ninth 10th ribs. Pathologic fr acture is not excluded. Vertebral plasty suggested. IMPRESSION: 1. Stable markedly dilated bowel loops and pattern suspicious for obstruction. 2. Bilateral lower lobe infiltrate and small effusion greater on the right. 3. right-sided rib fractures which could be pathologic correlate clinically.
[2022-04-11 08:46] LABS: Anisocytosis Slight; Basophils # (A) 0.1 k/uL (0-0.2); Basophils % (A) 1 %; Eosinophils % (A) 0 %; HCT 31.6 % (39.0-53.0); HGB 9.6 gm/dL (13.0-17.5); Hypochromasia Marked; Lymphocytes # (A) 0.6 k/uL (1.0-4.8); Lymphocytes % (A) 5 %; MCH 26.8 pg (25.0-35.0); MCHC 30.6 g/dL (31.0-37.0); MCV 87.7 fL (80.0-100.0); Mean Platelet Volume 8.5; Monocytes # (A) 0.4 k/uL (0-1.0); Monocytes % (A) 4 %; Neutrophils # (A) 10.5 k/uL (1.3-7.7); Neutrophils % (A) 89 %; Platelet Count 293 k/uL (150-450); RDW 17.2 % (11.5-15.5); WBC 11.8 k/uL (3.8-10.6)
[2022-04-11 11:37] LABS: Glucose,Whole Blood 133 mg/dL (70-110)
--- NOTE | 2022-04-11 12:03 | P.PN ---
Subjective Progress Note Date: 04/11/22 HISTORY OF PRESENT ILLNESS: This is a 71-year-old male with a past medical history significant for paroxysmal atrial fibrillation/flutter and lung cancer with metastasis to the spine per patient. 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 We have been asked to see the patient in consultation for atrial flutter with RVR. Patient examined at the bedside. Patient is somewhat of a poor historian. The patient states he has been at [facility] for rehab after having a back surgery a few months ago. The patient was brought to the hospital secondary to urinary tract infection and altered mental status. The patient was also found to have a partial small bowel obstruction. He is currently nothing by mouth. He has an NG tube in place to low intermittent suction. The patient was found to be in atrial flutter with RVR. Patient was started on IV heparin and IV Cardizem due to his NPO status. He subsequently converted to sinus mechanism. The patient denies any chest pain or pressure. He denies any shortness of breath. He reports some abdominal pain. He denies passing flatus or having a bowel movement. * EKG reveals atrial flutter with RVR * Chest xray pleural reaction and atelectasis at the lung bases without change. * CT abdomen and pelvis: Increased diffuse dilatation of the small bowel and colon compared to prior examination. Concerning for partial small bowel obs truction versus ileus. Persistent large amount of stool burden. Stable small scattered lytic lesions throughout the osseous structures concerning for metastatic disease. Similar moderate right pleural effusion with associated atelectasis. * Chest ultrasound: Evidence of moderate right-sided pleural effusion * Laboratory data: WBC 16.6. Hemoglobin 10.3. Platelet count 17.1. Sodium 141. Potassium 4.2. BUN 27. Creatinine 0.80. Troponin 0.054. 0.050. 0.048. * Current home cardiac medications include metoprolol 50 mg 3 times a day and Eliquis 5 mg twice a day * Most recent echocardiogram obtained on 03/28/2022 revealed normal LV systolic function with EF 55-60%. No pericardial effusion. * Cardiac catheterization history: Unknown 04/11/2022 Patient examined this morning at the bedside. Patients son is present. Patient is meeting with hospice today for consultation. Patient remains nothing by mouth with NG tube present. He denies having any bowel movements. Patient remains in sinus mechanism with heart rate in the 80s. He remains on IV heparin and IV Cardizem secondary to his NPO status. PHYSICAL EXAM: VITAL SIGNS: Reviewed. GENERAL: Well-developed in no acute distress. HEENT: Head is normocephalic. Pupils are equal, round. Sclerae anicteric. Mucous membranes of the mouth are moist. Neck supple. No JVD or thyromegaly LUNGS: Respirations even and unlabored. Lungs essentially clear to auscultation bilaterally. HEART: Regular rate and rhythm. S1 and S2 heard. ABDOMEN: Soft. Positive tenderness. Distended. NG tube noted. EXTREMITIES: Normal range of motion. No clubbing or cyanosis. Peripheral pulses intact. Mild bilateral nonpitting edema. NEUROLOGIC: Awake and alert. Oriented x 1-2. ASSESSMENT: Altered mental status Urinary tract infection Partial small bowel obstruction versus ileus, per CT scan Moderate right sided pleural effusion Paroxysmal atrial fibrillation/atypical atrial flutter with RVR, currently maintaining sinus mechanism Abnormal troponins, flat, secondary to RVR, ACS ruled out Lung cancer with metastasis to spine, per patient PLAN: Patient to meet with Hospice today for evaluation Patient is currently NPO with NG tube. Continue IV heparin. Resume Eliquis when patient can tolerate oral medications Continue IV Cardizem while patient is nothing by mouth. When able to tolerate oral medications, resume metoprolol General surgery following Further recommendations pending patient's course Nurse practitioner note has been reviewed by physician. Signing provider agrees with the documented findings, assessment, and plan of care. Objective - Vital Signs Vital signs: Vital Signs Temp 97.6 F 04/11/22 08:11 Pulse 85 04/11/22 11:02 Resp 16 04/11/22 11:02 BP 137/77 04/11/22 11:02 Pulse Ox 96 04/11/22 11:02 FiO2 Intake & Output 04/10/22 04/11/22 04/11/22 18:59 06:59 18:59 Intake Total 339.786 7671.375 134.439 Output Total 700 1900 Balance -347.973 -43.625 134.439 Weight 141.5 kg Intake: Intake, IV Titration 093.531 0156.375 134.439 Amount Diltiazem 125 mg In 176.583 Sodium Chloride 0.9% 100 ml @ Per Protocol IV .Q0M [facility] Rx#:[id number] Heparin Sod,Pork in 0.45% 175.444 89.715 134.439 NaCl 25,000 unit In 0.45 % NaCl 1 250ml.bag @ 7.6 UNITS/KG/HR 9.963 mls/hr IV .Q24H [facility] Rx#: [id number] Lactated Ringers 1,000 ml 1500 @ 125 mls/hr IV .Q8H [facility] Rx#:[id number] Piperacillin-Tazobactam 3 100 .375 gm In Sodium Chloride 0.9% 100 ml @ 25 mls/hr IVPB Q8H [facility]ST[facility] Rx#: [id number] Vancomycin 2,000 mg In 166.66 Sodium Chloride 0.9% 500 ml 500 ml @ 167 mls/hr IVPB Q12H K[facility]ST[facility] Rx#: [id number] Oral 0 0 Output: Gastric Drainage 950 Urine 700 950 Other: Voiding Method Indwelling Catheter Indwelling Catheter Indwelling Catheter - Labs CBC & Chem 7: 04/11/22 07:49 04/11/22 07:49 Labs: Abnormal Lab Results - Last 24 Hours (Table) 04/10/22 04/10/22 04/10/22 Range/Units 16:20 20:16 21:03 WBC (3.8-10.6) k/uL RBC (4.30-5.90) m/uL Hgb (13.0-17.5) gm/dL Hct (39.0-53.0) % MCHC (31.0-37.0) g/dL RDW (11.5-15.5) % Neutrophils # (1.3-7.7) k/uL Lymphocytes # (1.0-4.8) k/uL APTT 83.2 H (22.0-30.0) sec Chloride (98-107) mmol/L BUN (9-20) mg/dL Creatinine (0.66-1.25) mg/dL Glucose (74-99) mg/dL POC Glucose (mg/dL) 139 H 142 H (70-110) mg/dL Calcium (8.4-10.2) mg/dL 04/11/22 04/11/22 04/11/22 Range/Units 07:49 07:49 07:49 WBC 11.8 H (3.8-10.6) k/uL RBC 3.60 L (4.30-5.90) m/uL Hgb 9.6 L (13.0-17.5) gm/dL Hct 31.6 L (39.0-53.0) % MCHC 30.6 L (31.0-37.0) g/dL RDW 17.2 H (11.5-15.5) % Neutrophils # 10.5 H (1.3-7.7) k/uL Lymphocytes # 0.6 L (1.0-4.8) k/uL APTT 42.2 H (22.0-30.0) sec Chloride 108 H (98-107) mmol/L BUN 25 H (9-20) mg/dL Creatinine 0.65 L (0.66-1.25) mg/dL Glucose 131 H (74-99) mg/dL POC Glucose (mg/dL) (70-110) mg/dL Calcium 8.0 L (8.4-10.2) mg/dL 04/11/22 Range/Units 11:36 WBC (3.8-10.6) k/uL RBC (4.30-5.90) m/uL Hgb (13.0-17.5) gm/dL Hct (39.0-53.0) % MCHC (31.0-37.0) g/dL RDW (11.5-15.5) % Neutrophils # (1.3-7.7) k/uL Lymphocytes # (1.0-4.8) k/uL APTT (22.0-30.0) sec Chloride (98-107) mmol/L BUN (9-20) mg/dL Creatinine (0.66-1.25) mg/dL Glucose (74-99) mg/dL POC Glucose (mg/dL) 133 H (70-110) mg/dL Calcium (8.4-10.2) mg/dL Microbiology - Last 24 Hours (Table) 04/09/22 13:44 Blood Culture - Preliminary Blood No Growth after 24 hours
--- NOTE | 2022-04-11 13:02 | P.PN ---
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 Patient was in the hospital last week and he was discharged to skilled nursing on 04/06/2022. During his last admission, patient was treated for sepsis, urinary tract infection, right pleural effusion and he also had bacteremia from urinary tract infection. His other medical problems included atrial fibrillation with RVR, underlying COPD, and he had a picture of partial small bowel obstruction seen and evaluated by general surgery during his last admission. Patient was readmitted yesterday mostly with symptoms of altered mental status and possible urinary tract infection. He was also noted to have atrial flutter with RVR. Seen by cardiology on consultation, and he is on IV heparin as well as IV Cardizem. The patient is not a great historian, but he was appropriate enough to know that he was in the hospital and he has metastatic lung cancer, and today I even discussed the option of having hospice evaluation and possibly consider comfort care measures. Patient seems to be agreeable, and he would definitely like to have hospice discuss his condition and plans with his daughter. I saw the patient for abnormal chest x-ray and I recommended an ultrasound of the chest, he was found to have a 6.8 cm right pleural effusion, however considering his overall condition and status and the fact that the patient has very poor outcome and poor prognosis, I felt there is no need to recommend thoracentesis at this point. My recommendation is to seriously consider hospice on this patient. CT of the abdomen and pelvis showed diffuse delta patient with a small bowel consistent with partial small bowel obstruction versus ileus. Patient was also found to have small scattered lytic lesions throughout the osseous structures consistent with metastatic disease to the bones. In addition to all of this there is a moderate right-sided pleural effusion with associated atelectasis. Reevaluated today on 04/11/22, patient is basically about the same, continues to have nasogastric tube in place, it is on low intermittent suction, continues to have abdominal distention, being followed by many consultants. Pulmonary-gutierrez, I did not feel the patient is a good candidate for thoracentesis, and I'm basically recommending hospice, however it would be best to relieve his abdominal discomfort and relieve his partial small bowel obstruction if possible. Patient remains nothing by mouth with nasogastric tube in place remains on heparin is also on IV Cardizem and he is being followed by cardiology and by general surgery. Objective - Vital Signs Vital signs: Vital Signs Temp 97.6 F 04/11/22 08:11 Pulse 78 04/11/22 12:11 Resp 16 04/11/22 11:02 BP 137/77 04/11/22 11:02 Pulse Ox 96 04/11/22 11:02 FiO2 Intake & Output 04/10/22 04/11/22 04/11/22 18:59 06:59 18:59 Intake Total 762.391 5206.375 134.439 Output Total 700 1900 Balance -347.973 -43.625 134.439 Weight 141.5 kg Intake: Intake, IV Titration 612.983 9282.375 134.439 Amount Diltiazem 125 mg In 176.583 Sodium Chloride 0.9% 100 ml @ Per Protocol IV .Q0M [facility] Rx#:[id number] Heparin Sod,Pork in 0.45% 175.444 89.715 134.439 NaCl 25,000 unit In 0.45 % NaCl 1 250ml.bag @ 7.6 UNITS/KG/HR 9.963 mls/hr IV .Q24H [facility] Rx#: [id number] Lactated Ringers 1,000 ml 1500 @ 125 mls/hr IV .Q8H [facility] Rx#:[id number] Piperacillin-Tazobactam 3 100 .375 gm In Sodium Chloride 0.9% 100 ml @ 25 mls/hr IVPB Q8H [facility] Rx#: [id number] Vancomycin 2,000 mg In 166.66 Sodium Chloride 0.9% 500 ml 500 ml @ 167 mls/hr IVPB Q12H [facility] Rx#: [id number] Oral 0 0 Output: Gastric Drainage 950 Urine 700 950 Other: Voiding Method Indwelling Catheter Indwelling Catheter Indwelling Catheter - Exam Physical Exam: Revealed 71-year-old white male frail looking, chronically ill- looking, on 3 L nasal cannula, not in distress. Head: Atraumatic, normocephalic. HEENT:[Neck is supple.] [No neck masses.] [No thyromegaly.] [No JVD.] Pale conjunctivae no icterus. Dry mucous membranes. Nasogastric tube is in place. Chest: [Diminished breath sounds at the bases with crackles especially at the right base. No rhonchi and no wheezes Cardiac Exam: Irregular irregular rhythm, 2/6 systolic murmur throughout the precordium. Abdomen: [Obese, Soft, nontender, no megaly, no rebound, no guarding, negative bowel sounds. Extremities: [No clubbing, no edema, no cyanosis.] Neurological Exam: Patient is arousable he knows that he is in the hospital, aware of his multiple medical problems, no gross focal deficits except seems to be generally weak. Psychiatric: Normal mood, flat affect, minimal confusion as far as his mental s tatus is concerned. - Labs CBC & Chem 7: 04/11/22 07:49 04/11/22 07:49 Labs: Abnormal Lab Results - Last 24 Hours (Table) 04/10/22 04/10/22 04/10/22 Range/Units 16:20 20:16 21:03 WBC (3.8-10.6) k/uL RBC (4.30-5.90) m/uL Hgb (13.0-17.5) gm/dL Hct (39.0-53.0) % MCHC (31.0-37.0) g/dL RDW (11.5-15.5) % Neutrophils # (1.3-7.7) k/uL Lymphocytes # (1.0-4.8) k/uL APTT 83.2 H (22.0-30.0) sec Chloride (98-107) mmol/L BUN (9-20) mg/dL Creatinine (0.66-1.25) mg/dL Glucose (74-99) mg/dL POC Glucose (mg/dL) 139 H 142 H (70-110) mg/dL Calcium (8.4-10.2) mg/dL 04/11/22 04/11/22 04/11/22 Range/Units 07:49 07:49 07:49 WBC 11.8 H (3.8-10.6) k/uL RBC 3.60 L (4.30-5.90) m/uL Hgb 9.6 L (13.0-17.5) gm/dL Hct 31.6 L (39.0-53.0) % MCHC 30.6 L (31.0-37.0) g/dL RDW 17.2 H (11.5-15.5) % Neutrophils # 10.5 H (1.3-7.7) k/uL Lymphocytes # 0.6 L (1.0-4.8) k/uL APTT 42.2 H (22.0-30.0) sec Chloride 108 H (98-107) mmol/L BUN 25 H (9-20) mg/dL Creatinine 0.65 L (0.66-1.25) mg/dL Glucose 131 H (74-99) mg/dL POC Glucose (mg/dL) (70-110) mg/dL Calcium 8.0 L (8.4-10.2) mg/dL 04/11/22 Range/Units 11:36 WBC (3.8-10.6) k/uL RBC (4.30-5.90) m/uL Hgb (13.0-17.5) gm/dL Hct (39.0-53.0) % MCHC (31.0-37.0) g/dL RDW (11.5-15.5) % Neutrophils # (1.3-7.7) k/uL Lymphocytes # (1.0-4.8) k/uL APTT (22.0-30.0) sec Chloride (98-107) mmol/L BUN (9-20) mg/dL Creatinine (0.66-1.25) mg/dL Glucose (74-99) mg/dL POC Glucose (mg/dL) 133 H (70-110) mg/dL Calcium (8.4-10.2) mg/dL Microbiology - Last 24 Hours (Table) 04/09/22 13:44 Blood Culture - Preliminary Blood No Growth after 24 hours Assessment and Plan Assessment: Impression: Acute metabolic encephalopathy Acute partial small bowel obstruction, possible ileus Recurrent urinary tract infection Metastatic pulmonary adenocarcinoma Paroxysmal atrial fibrillation with RVR History of compression fracture/spine requiring surgery. Patient had cord compression. History of colostomy and reversal. Related to perforation of sigmoid diverticulitis. Recommendation: Continue heparin and Cardizem Continue nasogastric tube to low suction Patient to have meeting with hospice today as possible Continue empiric antibiotics, General surgery is seeing the patient for his small bowel obstruction Again the patient remains very open to hospice placement No plans to perform thoracentesis on the patient. Will follow as needed. Time with Patient: Less than 30
--- NOTE | 2022-04-11 14:28 | P.PN ---
Subjective Progress Note Date: 04/11/22 CHIEF COMPLAINT: Altered mental status HISTORY OF PRESENT ILLNESS: Surgical service following regards to partial small bowel obstruction. Patient has NG tube in place with 950 mL brownish output reported through the night. Patient's abdomen is distended. He does complain of some lower abdominal pain. Reports that he may have passed some flatus. No bowel movements reported. Patient seen by pulmonary service in regards to his pleural effusion and history of lung cancer and metastatic disease to the spine. They are recommending hospice or palliative care. Afebrile. WBC is down from 16.6-11.8 Hgb 9.6 sodium 141 potassium is 4 creatinine 0.65. Abdominal x-ray stable markedly dilated bowel loops and pattern suspicious for obstruction. Bilateral lower lobe infiltrate and small effusion later on the right. Right- sided rib fractures which could be pathologic correlate clinically. Patient seen and examined with Dr. avendano PHYSICAL EXAM: VITAL SIGNS: Reviewed. GENERAL: Well-developed in no acute distress. HEENT: No sclera icterus. Extraocular movements grossly intact. Moist buccal mucosa. Head is atraumatic, normocephalic. ABDOMEN: Soft. Distended. Minimal tenderness lower abdomen NEUROLOGIC: Alert and oriented x 1 ASSESSMENT: 1. Partial small bowel obstruction versus ileus noted on CAT scan 2. Recent admission with partial small bowel obstruction at the anastomotic site and ileitis 3. Prior history of abdominal surgeries 4. UTI 5. Altered mental status changes 6. Atrial flutter with RVR 7. History of lung cancer with metastatic disease to the spine 8. Moderate size right pleural effusion 9. Dementia PLAN: -Recommend hospice -Patient is not a good surgical candidate -Continue NG tube for decompression -Keep patient nothing by mouth except for ice chips and popsicles -Continue IV fluids -Continue antibiotics for UTI -Patient seen by hospice today. Awaiting patient and family's decision regarding hospice Physician Butcher Fish note has been reviewed by physician. Signing provider agrees with the documented findings, assessment, and plan of care. Objective - Vital Signs Vital signs: Vital Signs Temp 97.6 F 04/11/22 08:11 Pulse 78 04/11/22 11:59 Resp 16 04/11/22 11:02 BP 137/77 04/11/22 11:02 Pulse Ox 96 04/11/22 11:02 FiO2 Intake & Output 04/10/22 04/11/22 04/11/22 18:59 06:59 18:59 Intake Total 222.049 9770.375 134.439 Output Total 700 1900 Balance -347.973 -43.625 134.439 Weight 141.5 kg Intake: Intake, IV Titration 965.082 2710.375 134.439 Amount Diltiazem 125 mg In 176.583 Sodium Chloride 0.9% 100 ml @ Per Protocol IV .Q0M [facility] Rx#:[id number] Heparin Sod,Pork in 0.45% 175.444 89.715 134.439 NaCl 25,000 unit In 0.45 % NaCl 1 250ml.bag @ 7.6 UNITS/KG/HR 9.963 mls/hr IV .Q24H [facility] Rx#: [id number] Lactated Ringers 1,000 ml 1500 @ 125 mls/hr IV .Q8H [facility] Rx#:[id number] Piperacillin-Tazobactam 3 100 .375 gm In Sodium Chloride 0.9% 100 ml @ 25 mls/hr IVPB Q8H [facility] Rx#: [id number] Vancomycin 2,000 mg In 166.66 Sodium Chloride 0.9% 500 ml 500 ml @ 167 mls/hr IVPB Q12H [facility] Rx#: [id number] Oral 0 0 Output: Gastric Drainage 950 Urine 700 950 Other: Voiding Method Indwelling Catheter Indwelling Catheter Indwelling Catheter - Labs CBC & Chem 7: 04/11/22 07:49 04/11/22 07:49 Labs: Abnormal Lab Results - Last 24 Hours (Table) 04/10/22 04/10/22 04/10/22 Range/Units 16:20 20:16 21:03 WBC (3.8-10.6) k/uL RBC (4.30-5.90) m/uL Hgb (13.0-17.5) gm/dL Hct (39.0-53.0) % MCHC (31.0-37.0) g/dL RDW (11.5-15.5) % Neutrophils # (1.3-7.7) k/uL Lymphocytes # (1.0-4.8) k/uL APTT 83.2 H (22.0-30.0) sec Chloride (98-107) mmol/L BUN (9-20) mg/dL Creatinine (0.66-1.25) mg/dL Glucose (74-99) mg/dL POC Glucose (mg/dL) 139 H 142 H (70-110) mg/dL Calcium (8.4-10.2) mg/dL 04/11/22 04/11/22 04/11/22 Range/Units 07:49 07:49 07:49 WBC 11.8 H (3.8-10.6) k/uL RBC 3.60 L (4.30-5.90) m/uL Hgb 9.6 L (13.0-17.5) gm/dL Hct 31.6 L (39.0-53.0) % MCHC 30.6 L (31.0-37.0) g/dL RDW 17.2 H (11.5-15.5) % Neutrophils # 10.5 H (1.3-7.7) k/uL Lymphocytes # 0.6 L (1.0-4.8) k/uL APTT 42.2 H (22.0-30.0) sec Chloride 108 H (98-107) mmol/L BUN 25 H (9-20) mg/dL Creatinine 0.65 L (0.66-1.25) mg/dL Glucose 131 H (74-99) mg/dL POC Glucose (mg/dL) (70-110) mg/dL Calcium 8.0 L (8.4-10.2) mg/dL 04/11/22 Range/Units 11:36 WBC (3.8-10.6) k/uL RBC (4.30-5.90) m/uL Hgb (13.0-17.5) gm/dL Hct (39.0-53.0) % MCHC (31.0-37.0) g/dL RDW (11.5-15.5) % Neutrophils # (1.3-7.7) k/uL Lymphocytes # (1.0-4.8) k/uL APTT (22.0-30.0) sec Chloride (98-107) mmol/L BUN (9-20) mg/dL Creatinine (0.66-1.25) mg/dL Glucose (74-99) mg/dL POC Glucose (mg/dL) 133 H (70-110) mg/dL Calcium (8.4-10.2) mg/dL Microbiology - Last 24 Hours (Table) 04/09/22 13:44 Blood Culture - Preliminary Blood No Growth after 24 hours
--- NOTE | 2022-04-11 14:54 | P.PN ---
Subjective Progress Note Date: 04/11/22 Patient is a 71-year-old male with a known history of metastatic adenocarcinoma of the lung with mets to spinal cord and is supposed to follow-up with oncology as an outpatient, recent admission with sepsis due to urinary tract infection, right pleural effusion and ileus, discharged home on 04/06/2022, atrial fibrillation with rapid Blefarette, COPD presents to ER from shelter with complaints of altered mental status and possible urinary tract infection. Patient was also found to have atrial flutter with rapid regular rate in the ER. Patient is poor historian but otherwise awake alert and oriented x3. Patient is also complaining of nausea and abdominal discomfort. Patient was sent to [facility] from shelter. Denies any complaints of chest pain or shortness of breath. No fever no chills. No cough or sputum production. On admission EKG showed atrial flutter with rapid regular rate. Patient was started on Cardizem drip and heparin drip. Chest x-ray showed similar right lower lobe infiltrate and pleural effusions which are chronic. CT head showed no intracranial process. CT abdomen pelvis reveals possible slightly worsening partial small bowel obstruction versus ileus. Metastatic disease as well. Laboratory data showed WBC 20.2 hemoglobin 12.1 platelets 480 Sodium 137 potassium 4.5 chloride 104 bicarb is 19 BUN 3020 creatinine 0.97 and blood sugar is 134 and lactic acid 3.1 troponin 0.054 and 0.050 proBNP 3900 Albumin 2.9 Urinalysis showed moderate blood nitrite negative moderate leukocyte esterase elevated RBCs and WBCs Toxicology showed oxycodone and tricyclic antidepressants . Coronavirus PCR not detected 04/11/2022 Patient is seen and evaluated in follow-up this morning extremely lethargic currently resting as patient has continued abdominal pain. Patient does have an NG tube with general surgery on consult and following for this bowel obstruction. Case management also following and hospice consult was placed for informational meeting. Family unsure of proceeding forward with hospice at this time and would like to discuss further and follow-up with [facility] tomorrow in regards to treatment plans moving forward. Patient is currently a f ull code. Patient is afebrile with no reports of chest pain or shortness of breath noted. Patient to receive a midline her Accu calf as he currently has no IV access. Patient is maintained on IV antibiotics in the form of IV Zosyn along with vancomycin cardiology and pulmonary following. Patient is to continue with nothing by mouth except ice chips and popsicles. Patient is continued on IV heparin along with Cardizem with cardiology following for a flutter with RVR and recommend continue with telemetry monitoring. Patient also requiring IV steroids and continued breathing inhalational treatments for pleural effusions and COPD exacerbation with pulmonary following closely. Overall prognosis remains extremely poor and guarded and will continue to monitor closely. Review of systems: Unable to obtain as patient is currently lethargic Active Medications Albuterol/Ipratropium (Ipratropium-Albuterol 3 Ml Neb) 3 ml INHALATION RT-Q4H [facility] Last Admin: 04/11/22 11:59 Dose: 3 ml Gabapentin (Gabapentin 300 Mg Cap) 300 mg PO TID@0600,1400,2200 [facility] Last Admin: 04/11/22 12:16 Dose: Not Given Heparin Sodium (Porcine) (Heparin Sodium 1,000 Un/Ml (10ml Vl)) 0 unit IV PER PROTOCOL PRN; Protocol PRN Reason: Low PTT Last Admin: 04/10/22 10:39 Dose: 3,360 unit Piperacillin Sod/Tazobactam (Sod 3.375 gm/ Sodium Chloride) 100 mls @ 25 mls/hr IVPB Q8H [facility]; Protocol Last Admin: 04/11/22 13:19 Dose: 25 mls/hr Lactated Ringer's (Lactated Ringers) 1,000 mls @ 125 mls/hr IV .Q8H [facility] Last Admin: 04/11/22 13:20 Dose: 125 mls/hr Vancomycin HCl 2,000 mg/ (Sodium Chloride) 500 mls @ 167 mls/hr IVPB Q12H [facility] Last Admin: 04/11/22 04:02 Dose: 167 mls/hr Heparin Sodium/Sodium Chloride (25,000 unit/ Sodium Chloride) 250 mls @ 9.963 mls/hr IV .Q24H [facility]; Protocol Last Titration: 04/11/22 08:26 Dose: 11.6 units/kg/hr, 15.206 mls/hr Diltiazem HCl 125 mg/ Sodium (Chloride) 125 mls @ 0 mls/hr IV .Q0M [facility]; Protocol Last Titration: 04/10/22 16:26 Dose: 5 ml/hr, 5 mls/hr Methylprednisolone Sodium Succinate (Methylprednisolone Sod Succi 40 Mg/Ml 1 Ml Vial) 40 mg IV Q12HR [facility] Last Admin: 04/11/22 08:22 Dose: 40 mg Morphine Sulfate (Morphine Sulfate 4 Mg/Ml Syringe) 4 mg IVP Q4HR PRN PRN Reason: Pain Naloxone HCl (Naloxone 0.4 Mg/Ml 1 Ml Vial) 0.2 mg IV Q2M PRN PRN Reason: Opioid Reversal Ondansetron HCl (Ondansetron 4 Mg/2 Ml Vial) 4 mg IVP Q8HR PRN PRN Reason: Nausea And Vomiting Pantoprazole Sodium (Pantoprazole 40 Mg/10 Ml Vial) 40 mg IV DAILY [facility] Last Admin: 04/11/22 08:22 Dose: 40 mg Tamsulosin HCl (Tamsulosin 0.4 Mg Cap.Er.24h) 0.4 mg PO DAILY [facility] Last Admin: 04/11/22 08:03 Dose: Not Given PHYSICAL EXAMINATION: Patient is lying in the bed comfortably, no acute distress, sleeping, Lethargic and weak. Ill-appearing, morbidly obese. HEENT: Normocephalic. Neck is supple. Pupils reactive. Nostrils clear. Oral cavity is moist. Neck reveals no JVD, carotid bruits, or thyromegaly. CHEST EXAMINATION: Trachea is central. Symmetrical expansion. Bibasilar diminished sounds with some scattered crackles and rhonchi noted.. CARDIAC: Normal S1, S2 with no gallops. No murmurs, Irregular rhythm. ABDOMEN: Soft. Mild distention. Bowel sounds diminished. Nontender. No organomegaly. No abdominal bruits. Extremities: reveal no edema. No clubbing or cyanosis Neurologically awake, alert, oriented x2-3 with well-coordinated movements. Diffusely weak Skin: No rash or skin lesions. Psychiatric: Cooperative. Non-suicidal, Musculoskeletal: No joint swelling or deformity. Normal range of motion. Assessment: Acute metabolic encephalopathy Acute urinary tract infection and recurrent UTI, present on admission Acute partial small bowel obstruction versus ileus Atrial fibrillation with rapid regular rate 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 History of compression fractures/spine requiring surgery. History of colostomy and reversal due to perforation of the sigmoid diverticu litis. DVT and GI prophylaxis Plan: Patient is being currently continued on Cardizem drip and heparin drip with cardiology following. recommend continue with telemetry monitoring for now. Continue with nothing by mouth and NG tube. General surgery is following and has evaluated the patient recommending no surgical intervention at this time and will not be having any type of bowel surgery. Recommending palliative versus hospice with comfort measures. Pulmonary is following as well for pleural effusions with no plans for thoracentesis at this time and maintained on IV steroids along with breathing inhalational treatments and will continue. Patient does continue on IV antibiotics in the form of Zosyn and vancomycin while awaiting for cultures to finalize. [facility] hospice following and will be meeting with family to discuss possible informational versus hospice maybe on 04/12/2022. Patient does have metastatic lung cancer and other multiple medical problems and comorbid conditions. Overall prognosis is extremely poor and guarded. Case management is aware and updating hospice and current condition. Will await reevaluation with [facility] and family to make a final decisi on. The impression and plan of care has been dictated by Rhina Villanueva, Nurse Practitioner as directed. Dr. Ac MD I have performed a history and examination and MDM of this patient, discussed the same with the dictator, and agree with the dictator's assessment and plan as written ,documented as a scribe. Based on total visit time, I have performed more than 50% of the visit. Objective - Vital Signs Vital signs: Vital Signs Temp 97.6 F 04/11/22 08:11 Pulse 80 04/11/22 09:15 Resp 18 04/11/22 09:15 BP 140/78 04/11/22 08:11 Pulse Ox 97 04/11/22 09:02 FiO2 Intake & Output 04/10/22 04/11/22 04/11/22 18:59 06:59 18:59 Intake Total 546.478 6074.375 134.439 Output Total 700 1900 Balance -347.973 -43.625 134.439 Weight 141.5 kg Intake: Intake, IV Titration 805.947 7111.375 134.439 Amount Diltiazem 125 mg In 176.583 Sodium Chloride 0.9% 100 ml @ Per Protocol IV .Q0M [facility] Rx#:[id number] Heparin Sod,Pork in 0.45% 175.444 89.715 134.439 NaCl 25,000 unit In 0.45 % NaCl 1 250ml.bag @ 7.6 UNITS/KG/HR 9.963 mls/hr IV .Q24H [facility] Rx#: [id number] Lactated Ringers 1,000 ml 1500 @ 125 mls/hr IV .Q8H [facility] Rx#:[id number] Piperacillin-Tazobactam 3 100 .375 gm In Sodium Chloride 0.9% 100 ml @ 25 mls/hr IVPB Q8H [facility] Rx#: [id number] Vancomycin 2,000 mg In 166.66 Sodium Chloride 0.9% 500 ml 500 ml @ 167 mls/hr IVPB Q12H [facility] Rx#: [id number] Oral 0 0 Output: Gastric Drainage 950 Urine 700 950 Other: Voiding Method Indwelling Catheter Indwelling Catheter Indwelling Catheter - Labs CBC & Chem 7: 04/11/22 07:49 04/11/22 07:49 Labs: Abnormal Lab Results - Last 24 Hours (Table) 04/10/22 04/10/22 04/10/22 Range/Units 11:26 16:20 20:16 WBC (3.8-10.6) k/uL RBC (4.30-5.90) m/uL Hgb (13.0-17.5) gm/dL Hct (39.0-53.0) % MCHC (31.0-37.0) g/dL RDW (11.5-15.5) % Neutrophils # (1.3-7.7) k/uL Lymphocytes # (1.0-4.8) k/uL APTT (22.0-30.0) sec Chloride (98-107) mmol/L BUN (9-20) mg/dL Creatinine (0.66-1.25) mg/dL Glucose (74-99) mg/dL POC Glucose (mg/dL) 148 H 139 H 142 H (70-110) mg/dL Calcium (8.4-10.2) mg/dL 04/10/22 04/11/22 04/11/22 Range/Units 21:03 07:49 07:49 WBC 11.8 H (3.8-10.6) k/uL RBC 3.60 L (4.30-5.90) m/uL Hgb 9.6 L (13.0-17.5) gm/dL Hct 31.6 L (39.0-53.0) % MCHC 30.6 L (31.0-37.0) g/dL RDW 17.2 H (11.5-15.5) % Neutrophils # 10.5 H (1.3-7.7) k/uL Lymphocytes # 0.6 L (1.0-4.8) k/uL APTT 83.2 H (22.0-30.0) sec Chloride 108 H (98-107) mmol/L BUN 25 H (9-20) mg/dL Creatinine 0.65 L (0.66-1.25) mg/dL Glucose 131 H (74-99) mg/dL POC Glucose (mg/dL) (70-110) mg/dL Calcium 8.0 L (8.4-10.2) mg/dL 04/11/22 Range/Units 07:49 WBC (3.8-10.6) k/uL RBC (4.30-5.90) m/uL Hgb (13.0-17.5) gm/dL Hct (39.0-53.0) % MCHC (31.0-37.0) g/dL RDW (11.5-15.5) % Neutrophils # (1.3-7.7) k/uL Lymphocytes # (1.0-4.8) k/uL APTT 42.2 H (22.0-30.0) sec Chloride (98-107) mmol/L BUN (9-20) mg/dL Creatinine (0.66-1.25) mg/dL Glucose (74-99) mg/dL POC Glucose (mg/dL) (70-110) mg/dL Calcium (8.4-10.2) mg/dL Microbiology - Last 24 Hours (Table) 04/09/22 13:44 Blood Culture - Preliminary Blood No Growth after 24 hours
[2022-04-11 16:54] LABS: Glucose,Whole Blood 131 mg/dL (70-110)
[2022-04-11] MEDS: HEPARIN SODIUM 1,000 UN/ML (10ML VL) IV PRN (17:00)
[2022-04-11] MEDS: DILTIAZEM 125 MG in SODIUM CHLORIDE 0.9% 100 ML IV SCH (17:05)
[2022-04-11 20:11] LABS: Glucose,Whole Blood 122 mg/dL (70-110)
[2022-04-12] MEDS: IPRATROPIUM-ALBUTEROL 3 ML NEB INHALATION SCH ×7 (00:36→23:15)
[2022-04-12] MEDS: VANCOMYCIN 2,000 MG in SODIUM CHLORIDE 0.9% 500 ML 500 ML IVPB SCH ×2 (05:13→18:38)
[2022-04-12] MEDS: PIPERACILLIN-TAZOBACTAM 3.375 GM in SODIUM CHLORIDE 0.9% 100 ML IVPB SCH ×3 (05:13→22:53)
[2022-04-12] MEDS: GABAPENTIN 300 MG CAP PO SCH ×3 (05:21→20:24)
[2022-04-12] MEDS: LACTATED RINGERS 1,000 ML IV SCH ×2 (05:22→14:31)
[2022-04-12] MEDS ORDERED: ENOXAPARIN 80 MG/0.8 ML SYRINGE SQ ONE (06:00)
[2022-04-12 06:03] LABS: Glucose,Whole Blood 137 mg/dL (70-110)
[2022-04-12 08:50] LABS: African American GFR (CKD) >90 (>60 ml/min/1.73 sqM); Non-African American GFR(CKD) >90 (>60 ml/min/1.73 sqM)
[2022-04-12 09:04] LABS: Anisocytosis Slight; Basophils # (A) 0.1 k/uL (0-0.2); Basophils % (A) 0 %; Eosinophils % (A) 0 %; HCT 30.2 % (39.0-53.0); HGB 9.3 gm/dL (13.0-17.5); Hypochromasia Marked; Lymphocytes # (A) 0.5 k/uL (1.0-4.8); Lymphocytes % (A) 4 %; MCH 26.5 pg (25.0-35.0); MCV 85.6 fL (80.0-100.0); Mean Platelet Volume 9.2; Monocytes # (A) 0.6 k/uL (0-1.0); Monocytes % (A) 5 %; Neutrophils # (A) 10.3 k/uL (1.3-7.7); Neutrophils % (A) 89 %; Platelet Count 271 k/uL (150-450); RBC 3.52 m/uL (4.30-5.90); RDW 17.5 % (11.5-15.5); WBC 11.6 k/uL (3.8-10.6)
[2022-04-12] MEDS: APIXABAN 5 MG TAB PO SCH ×2 (09:25→20:21)
[2022-04-12] MEDS: TAMSULOSIN 0.4 MG CAP.ER.24H PO SCH (09:25)
[2022-04-12] MEDS: methylPREDNISolone SOD SUCCI 40 MG/ML 1 ML VIAL IV SCH ×2 (09:27→20:22)
[2022-04-12] MEDS: PANTOPRAZOLE 40 MG/10 ML VIAL IV SCH (09:28)
[2022-04-12] MEDS: METOPROLOL TARTRATE 50 MG TAB PO SCH ×3 (09:58→20:30)
[2022-04-12 11:28] LABS: Glucose,Whole Blood 131 mg/dL (70-110)
--- NOTE | 2022-04-12 11:43 | P.PN ---
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 Patient does not follow with a parakeet raiser. We have been asked to see the patient in consultation for atrial flutter with RVR. Patient examined at the bedside. Patient is somewhat of a poor historian. The patient states he has been at [facility] for rehab after having a back surgery a few months ago. The patient was brought to the hospital secondary to urinary tract infection and altered mental status. The patient was also found to have a partial small bowel obstruction. He is currently nothing by mouth. He has an NG tube in place to low intermittent suction. The patient was found to be in atrial flutter with RVR. Patient was started on IV heparin and IV Cardizem due to his NPO status. He subsequently converted to sinus mechanism. The patient denies any chest pain or pressure. He denies any shortness of breath. He reports some abdominal pain. He denies passing flatus or having a bowel movement. * EKG reveals atrial flutter with RVR * Chest xray pleural reaction and atelectasis at the lung bases without change. * CT abdomen and pelvis: Increased diffuse dilatation of the small bowel and colon compared to prior examination. Concerning for partial small bowel obstruction versus ileus. Persistent large amount of stool burden. Stable small scattered lytic lesions throughout the osseous structures concerning for metastatic disease. Similar moderate right pleural effusion with associated atelectasis. * Chest ultrasound: Evidence of moderate right-sided pleural effusion * Laboratory data: WBC 16.6. Hemoglobin 10.3. Platelet count 17.1. Sodium 141. Potassium 4.2. BUN 27. Creatinine 0.80. Troponin 0.054. 0.050. 0.048. * Current home cardiac medications include metoprolol 50 mg 3 times a day and Eliquis 5 mg twice a day * Most recent echocardiogram obtained on 03/28/2022 revealed normal LV systolic function with EF 55-60%. No pericardial effusion. * Cardiac catheterization history: Unknown 04/11/2022 Patient examined this morning at the bedside. Patients son is present. Patient is meeting with hospice today for consultation. Patient remains nothing by mouth with NG tube present. He denies having any bowel movements. Patient remains in sinus mechanism with heart rate in the 80s. He remains on IV heparin and IV Cardizem secondary to his NPO status. 04/12/2022 Patient examined this morning at the bedside. Patient denies chest pain or pressure. He denies shortness of breath. Telemetry reveals sinus mechanism. The patient apparently pulled out his NG tube. He is tolerating ice chips and popsicles. Patient had a meeting with hospice yesterday and states he is still trying to make a decision regarding hospice. PHYSICAL EXAM: VITAL SIGNS: Reviewed. GENERAL: Well-developed in no acute distress. HEENT: Head is normocephalic. Pupils are equal, round. Sclerae anicteric. Mucous membranes of the mouth are moist. Neck supple. No JVD or thyromegaly LUNGS: Respirations even and unlabored. Lungs essentially clear to auscultation bilaterally. HEART: Regular rate and rhythm. S1 and S2 heard. ABDOMEN: Soft. Positive tenderness. Distended. EXTREMITIES: Normal range of motion. No clubbing or cyanosis. Peripheral pulses intact. Mild bilateral nonpitting edema. NEUROLOGIC: Awake and alert. Oriented x 1-2. ASSESSMENT: Altered mental status Urinary tract infection Partial small bowel obstruction versus ileus, per CT scan Moderate right sided pleural effusion Paroxysmal atrial fibrillation/atypical atrial flutter with RVR, currently maintaining sinus mechanism Abnormal troponins, flat, secondary to RVR, ACS ruled out Lung cancer with metastasis to spine, per patient PLAN: Case discussed with general surgery who are okay with resuming oral medications Discontinue IV heparin and IV Cardizem Resume Eliquis and metoprolol Await patient decision regarding hospice We will sign off. Patient consult if needed. Nurse practitioner note has been reviewed by physician. Signing provider agrees with the documented findings, assessment, and plan of care. Objective - Vital Signs Vital signs: Vital Signs Temp 97.4 F L 04/12/22 08:00 Pulse 98 04/12/22 08:12 Resp 16 04/12/22 08:00 BP 155/74 04/12/22 08:00 Pulse Ox 92 L 04/12/22 08:02 FiO2 Intake & Output 04/11/22 04/12/22 04/12/22 18:59 06:59 18:59 Intake Total 387.954 993.686 Output Total 575 540 200 Balance -187.046 453.686 -200 Intake: Intake, IV Titration 387.954 993.686 Amount Diltiazem 125 mg In 123.25 Sodium Chloride 0.9% 100 ml @ Per Protocol IV .Q0M [facility] Rx#:[id number] Heparin Sod,Pork in 0.45% 264.704 118.686 NaCl 25,000 unit In 0.45 % NaCl 1 250ml.bag @ 7.6 UNITS/KG/HR 9.963 mls/hr IV .Q24H [facility] Rx#: [id number] Lactated Ringers 1,000 ml 875 @ 125 mls/hr IV .Q8H [facility] Rx#:[id number] Output: Urine 575 540 200 Uretheral (Weaver) 200 Other: Voiding Method Indwelling Catheter Indwelling Catheter Indwelling Catheter - Labs CBC & Chem 7: 04/12/22 07:38 04/12/22 07:38 Labs: Abnormal Lab Results - Last 24 Hours (Table) 04/11/22 04/11/22 04/11/22 Range/Units 15:55 16:53 20:10 WBC (3.8-10.6) k/uL RBC (4.30-5.90) m/uL Hgb (13.0-17.5) gm/dL Hct (39.0-53.0) % RDW (11.5-15.5) % Neutrophils # (1.3-7.7) k/uL Lymphocytes # (1.0-4.8) k/uL APTT 33.2 H (22.0-30.0) sec Creatinine (0.66-1.25) mg/dL POC Glucose (mg/dL) 131 H 122 H (70-110) mg/dL 04/12/22 04/12/22 04/12/22 Range/Units 06:02 07:38 07:38 WBC 11.6 H (3.8-10.6) k/uL RBC 3.52 L (4.30-5.90) m/uL Hgb 9.3 L (13.0-17.5) gm/dL Hct 30.2 L (39.0-53.0) % RDW 17.5 H (11.5-15.5) % Neutrophils # 10.3 H (1.3-7.7) k/uL Lymphocytes # 0.5 L (1.0-4.8) k/uL APTT (22.0-30.0) sec Creatinine 0.58 L (0.66-1.25) mg/dL POC Glucose (mg/dL) 137 H (70-110) mg/dL 04/12/22 Range/Units 11:27 WBC (3.8-10.6) k/uL RBC (4.30-5.90) m/uL Hgb (13.0-17.5) gm/dL Hct (39.0-53.0) % RDW (11.5-15.5) % Neutrophils # (1.3-7.7) k/uL Lymphocytes # (1.0-4.8) k/uL APTT (22.0-30.0) sec Creatinine (0.66-1.25) mg/dL POC Glucose (mg/dL) 131 H (70-110) mg/dL Microbiology - Last 24 Hours (Table) 04/09/22 13:27 Urine Culture - Preliminary Urine,Voided Yeast species 04/09/22 13:44 Blood Culture - Preliminary Blood No Growth after 48 hours
[2022-04-12 12:36] VITALS: BMI 41.1
--- NOTE | 2022-04-12 13:43 | P.PN ---
Subjective Progress Note Date: 04/12/22 CHIEF COMPLAINT: Altered mental status HISTORY OF PRESENT ILLNESS: Surgical service following regards to partial small bowel obstruction. She pulled out NG tube during the night. He's had no nausea or vomiting. Denies any abdominal pain. He did have a bowel movement this morning. Awaiting family's decision regarding hospice. Patient is currently a full code. Patient seen and examined with Dr. avendano PHYSICAL EXAM: VITAL SIGNS: Reviewed. GENERAL: Well-developed in no acute distress. HEENT: No sclera icterus. Extraocular movements grossly intact. Moist buccal mucosa. Head is atraumatic, normocephalic. ABDOMEN: Soft. Mildly distended. Nontender. NEUROLOGIC: Alert and oriented x 1 ASSESSMENT: 1. Partial small bowel obstruction versus ileus noted on CAT scan 2. Recent admission with partial small bowel obstruction at the anastomotic site and ileitis 3. Prior history of abdominal surgeries 4. UTI 5. Altered mental status changes 6. Atrial flutter with RVR 7. History of lung cancer with metastatic disease to the spine 8. Moderate size right pleural effusion 9. Dementia PLAN: -Recommend hospice -Okay to leave NG tube out -Start clear liquid diet -Okay to resume oral medications including Eliquis -Continue IV fluid -Continue antibiotics for UTI -Awaiting patient and family's decision regarding hospice Physician Security Messenger note has been reviewed by physician. Signing provider agrees with the documented findings, assessment, and plan of care. Objective - Vital Signs Vital signs: Vital Signs Temp 97.4 F L 04/12/22 08:00 Pulse 93 04/12/22 12:11 Resp 16 04/12/22 08:00 BP 155/74 04/12/22 08:00 Pulse Ox 92 L 04/12/22 08:02 FiO2 Intake & Output 04/11/22 04/12/22 04/12/22 18:59 06:59 18:59 Intake Total 387.954 993.686 240 Output Total 575 540 200 Balance -187.046 453.686 40 Weight 141.5 kg Intake: Intake, IV Titration 387.954 993.686 Amount Diltiazem 125 mg In 123.25 Sodium Chloride 0.9% 100 ml @ Per Protocol IV .Q0M [facility] Rx#:[id number] Heparin Sod,Pork in 0.45% 264.704 118.686 NaCl 25,000 unit In 0.45 % NaCl 1 250ml.bag @ 7.6 UNITS/KG/HR 9.963 mls/hr IV .Q24H [facility] Rx#: [id number] Lactated Ringers 1,000 ml 875 @ 125 mls/hr IV .Q8H [facility] Rx#:[id number] Oral 240 Output: Urine 575 540 200 Uretheral (Weaver) 200 Other: Voiding Method Indwelling Catheter Indwelling Catheter Indwelling Catheter - Labs CBC & Chem 7: 04/12/22 07:38 04/12/22 07:38 Labs: Abnormal Lab Results - Last 24 Hours (Table) 04/11/22 04/11/22 04/11/22 Range/Units 15:55 16:53 20:10 WBC (3.8-10.6) k/uL RBC (4.30-5.90) m/uL Hgb (13.0-17.5) gm/dL Hct (39.0-53.0) % RDW (11.5-15.5) % Neutrophils # (1.3-7.7) k/uL Lymphocytes # (1.0-4.8) k/uL APTT 33.2 H (22.0-30.0) sec Creatinine (0.66-1.25) mg/dL POC Glucose (mg/dL) 131 H 122 H (70-110) mg/dL 04/12/22 04/12/22 04/12/22 Range/Units 06:02 07:38 07:38 WBC 11.6 H (3.8-10.6) k/uL RBC 3.52 L (4.30-5.90) m/uL Hgb 9.3 L (13.0-17.5) gm/dL Hct 30.2 L (39.0-53.0) % RDW 17.5 H (11.5-15.5) % Neutrophils # 10.3 H (1.3-7.7) k/uL Lymphocytes # 0.5 L (1.0-4.8) k/uL APTT (22.0-30.0) sec Creatinine 0.58 L (0.66-1.25) mg/dL POC Glucose (mg/dL) 137 H (70-110) mg/dL 04/12/22 Range/Units 11:27 WBC (3.8-10.6) k/uL RBC (4.30-5.90) m/uL Hgb (13.0-17.5) gm/dL Hct (39.0-53.0) % RDW (11.5-15.5) % Neutrophils # (1.3-7.7) k/uL Lymphocytes # (1.0-4.8) k/uL APTT (22.0-30.0) sec Creatinine (0.66-1.25) mg/dL POC Glucose (mg/dL) 131 H (70-110) mg/dL Microbiology - Last 24 Hours (Table) 04/09/22 13:27 Urine Culture - Preliminary Urine,Voided Yeast species 04/09/22 13:44 Blood Culture - Preliminary Blood No Growth after 48 hours
--- NOTE | 2022-04-12 15:54 | P.PN ---
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 Patient was also found to have atrial flutter with rapid regular rate in the ER. Patient is poor historian but otherwise awake alert and oriented x3. Patient is also complaining of nausea and abdominal discomfort. Patient was sent to [facility]. Denies any complaints of chest pain or shortness of breath. No fever no chills. No cough or sputum production. On admission EKG showed atrial flutter with rapid regular rate. Patient was started on Cardizem drip and heparin drip. Chest x-ray showed similar right lower lobe infiltrate and pleural effusions which are chronic. CT head showed no intracranial process. CT abdomen pelvis reveals possible slightly worsening partial small bowel obstruction versus ileus. Metastatic disease as well. Laboratory data showed WBC 20.2 hemoglobin 12.1 platelets 480 Sodium 137 potassium 4.5 chloride 104 bicarb is 19 BUN 3020 creatinine 0.97 and blood sugar is 134 and lactic acid 3.1 troponin 0.054 and 0.050 proBNP 3900 Albumin 2.9 Urinalysis showed moderate blood nitrite negative moderate leukocyte esterase elevated RBCs and WBCs Toxicology showed oxycodone and tricyclic antidepressants . Coronavirus PCR not detected 04/11/2022 Patient is seen and evaluated in follow-up this morning extremely lethargic currently resting as patient has continued abdominal pain. Patient does have an NG tube with general surgery on consult and following for this bowel obstruction. Case management also following and hospice consult was placed for informational meeting. Family unsure of proceeding forward with hospice at this time and would like to discuss further and follow-up with [facility] tomorrow in regards to treatment plans moving forward. Patient is currently a f ull code. Patient is afebrile with no reports of chest pain or shortness of breath noted. Patient to receive a midline her Accu calf as he currently has no IV access. Patient is maintained on IV antibiotics in the form of IV Zosyn along with vancomycin cardiology and pulmonary following. Patient is to continue with nothing by mouth except ice chips and popsicles. Patient is continued on IV heparin along with Cardizem with cardiology following for a flutter with RVR and recommend continue with telemetry monitoring. Patient also requiring IV steroids and continued breathing inhalational treatments for pleural effusions and COPD exacerbation with pulmonary following closely. Overall prognosis remains extremely poor and guarded and will continue to monitor closely. 04/12/2022 Patient is seen and evaluated in follow-up this morning currently awake and more responsive and had the NG tube removed. Patient reports he had a bowel movement and has been advanced to clear liquids per surgery. Patient is not a surgical candidate and recommending conservative management. Family wishing to proceed with hospice house in [place] and case management following working on discharge planning needs. Patient is maintained on IV antibiotics in the form of Zosyn and vancomycin and will continue for now. Patient has been taken off Cardizem drip and resumed on oral anticoagulant of Eliquis And IV heparin has been discontinued. Patient is weak and will have PT/OT evaluate the patient. D iscussed with son at length about overall guarded and poor prognosis and would like to proceed with hospice house. Labs reviewed and WBC is trending down and hemoglobin is stable at 9.3 and blood sugars are being monitored. PHYSICAL EXAMINATION: Patient issitting up in the bed comfortably, no acute distress,awake and alert today. morbidly obese. HEENT: Normocephalic. Neck is supple. Pupils reactive. Nostrils clear. Oral cavity is moist. Neck reveals no JVD, carotid bruits, or thyromegaly. CHEST EXAMINATION: Trachea is central. Symmetrical expansion. Bibasilar diminished sounds with some scattered rhonchi noted.. CARDIAC: Normal S1, S2 with no gallops. No murmurs, Irregular rhythm. ABDOMEN: Soft. Mild distention. Bowel sounds diminished. Nontender. No organomegaly. No abdominal bruits. Extremities: reveal no edema. No clubbing or cyanosis Neurologically awake, alert, oriented x2-3 with well-coordinated movements. Diffusely weak Skin: No rash or skin lesions. Psychiatric: Cooperative. Non-suicidal, Musculoskeletal: No joint swelling or deformity. Normal range of motion. Assessment: Acute metabolic encephalopathy, Improved Acute urinary tract infection and recurrent UTI, present on admission Acute partial small bowel obstruction versus ileus Atrial fibrillation with rapid regular rate, Currently rate controlled 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 History of compression fractures/spine requiring surgery. History of colostomy and reversal due to perforation of the sigmoid diverticulitis. DVT and GI prophylaxis Full code Plan: Patient is transitioned off Cardizem and heparin and currently rate controlled on the monitor. Patient had NG tube removed as patient had a bowel movement and surgery following recommending no surgical interventions at this time and to continue with conservative management. Patient is also maintained on IV antibiotics while awaiting for urine cultures to finalize. Urine showing yeast species. Family and patient are agreeable and would like to proceed with hospice at the hospice home in [place] case management is following working on discharge planning. Overall prognosis is poor and guarded considering his multiple comorbid medical conditions patient is not a surgical candidate. Per son patient was recently diagnosed in January with adenocarcinoma and also metastasis and had a follow-up a ppointment with oncology once to discuss treatment options although treatments were not started. Patient continues with significant weakness and has been in ECF mostly since his diagnosis. Possible discharge in 24-48 hours to the hospice house in [place] The impression and plan of care has been dictated by Rhina Villanueva, Nurse Practitioner as directed. Dr. Ac MD I have performed a history and examination and MDM of this patient, discussed the same with the dictator, and agree with the dictator's assessment and plan as written ,documented as a scribe. Based on total visit time, I have performed more than 50% of the visit. Objective - Vital Signs Vital signs: Vital Signs Temp 97.6 F 04/12/22 03:25 Pulse 98 04/12/22 08:12 Resp 14 04/12/22 03:25 BP 165/79 04/12/22 03:25 Pulse Ox 92 L 04/12/22 08:02 FiO2 Intake & Output 04/11/22 04/12/22 04/12/22 18:59 06:59 18:59 Intake Total 387.954 993.686 Output Total 575 540 Balance -187.046 453.686 Intake: Intake, IV Titration 387.954 993.686 Amount Diltiazem 125 mg In 123.25 Sodium Chloride 0.9% 100 ml @ Per Protocol IV .Q0M [facility] Rx#:[id number] Heparin Sod,Pork in 0.45% 264.704 118.686 NaCl 25,000 unit In 0.45 % NaCl 1 250ml.bag @ 7.6 UNITS/KG/HR 9.963 mls/hr IV .Q24H [facility] Rx#: [id number] Lactated Ringers 1,000 ml 875 @ 125 mls/hr IV .Q8H [facility] Rx#:[id number] Output: Urine 575 540 Other: Voiding Method Indwelling Catheter Indwelling Catheter - Labs CBC & Chem 7: 04/12/22 07:38 04/12/22 07:38 Labs: Abnormal Lab Results - Last 24 Hours (Table) 04/11/22 04/11/22 04/11/22 Range/Units 11:36 15:55 16:53 APTT 33.2 H (22.0-30.0) sec Creatinine (0.66-1.25) mg/dL POC Glucose (mg/dL) 133 H 131 H (70-110) mg/dL 04/11/22 04/12/22 04/12/22 Range/Units 20:10 06:02 07:38 APTT (22.0-30.0) sec Creatinine 0.58 L (0.66-1.25) mg/dL POC Glucose (mg/dL) 122 H 137 H (70-110) mg/dL Microbiology - Last 24 Hours (Table) 04/09/22 13:27 Urine Culture - Preliminary Urine,Voided Yeast species 04/09/22 13:44 Blood Culture - Preliminary Blood No Growth after 48 hours
[2022-04-12 17:01] LABS: Glucose,Whole Blood 200 mg/dL (70-110)
[2022-04-12 20:28] LABS: Glucose,Whole Blood 150 mg/dL (70-110)
[2022-04-13] MEDS ORDERED: VANCOMYCIN TROUGH DUE 1 EACH MISC MISCELLANE ONE (04:00)
[2022-04-13] MEDS: IPRATROPIUM-ALBUTEROL 3 ML NEB INHALATION SCH ×4 (04:09→15:41)
[2022-04-13 04:39] LABS: African American GFR (CKD) >90 (>60 ml/min/1.73 sqM); Non-African American GFR(CKD) >90 (>60 ml/min/1.73 sqM)
[2022-04-13] MEDS: PIPERACILLIN-TAZOBACTAM 3.375 GM in SODIUM CHLORIDE 0.9% 100 ML IVPB SCH (05:57)
[2022-04-13] MEDS: GABAPENTIN 300 MG CAP PO SCH (05:58)
[2022-04-13] MEDS: LACTATED RINGERS 1,000 ML IV SCH (05:58)
[2022-04-13 06:21] LABS: Glucose,Whole Blood 104 mg/dL (70-110)
[2022-04-13] MEDS: VANCOMYCIN 2,000 MG in SODIUM CHLORIDE 0.9% 500 ML 500 ML IVPB SCH (06:29)
[2022-04-13] MEDS ORDERED: VANCOMYCIN IV PER PHARMACY 1 EACH MISC MISCELLANE PRN (07:52)
[2022-04-13] MEDS: METOPROLOL TARTRATE 50 MG TAB PO SCH (09:14)
[2022-04-13] MEDS: methylPREDNISolone SOD SUCCI 40 MG/ML 1 ML VIAL IV SCH (09:15)
[2022-04-13] MEDS: PANTOPRAZOLE 40 MG/10 ML VIAL IV SCH (09:15)
[2022-04-13] MEDS: TAMSULOSIN 0.4 MG CAP.ER.24H PO SCH (09:15)
[2022-04-13] MEDS: APIXABAN 5 MG TAB PO SCH (09:15)
[2022-04-13 11:20] VITALS: RESP 18
[2022-04-13 11:21] VITALS: BP 125/73; TEMP 97
[2022-04-13 12:08] LABS: Glucose,Whole Blood 104 mg/dL (70-110)
--- NOTE | 2022-04-13 15:04 | P.PN ---
Progress Note - Text Progress Note Date: 04/13/22 patient's resting comfortably in his bed. He is tolerating his full diet. He denies any significant abdominal pain. On exam vessels are still. Abdomen soft. Patient's has a chronic partial small bowel structure at the anastomosis of his previous bowel resection. The patient is extremely poor surgical candidate. Hopefully he will not show any significant obstructive symptoms. The patient should be managed medically at this time.
[2022-04-13 15:54] VITALS: PULSE 100
--- NOTE | 2022-04-14 23:31 | P.DS ---
Providers Date of admission: 04/09/22 16:46 Expected date of discharge: 04/13/22 Attending physician: Skyler Shen Consults: 04/09/22 17:26 Consult Physician Routine Consulting Provider: Alexus Rao Consult Reason/Comments: pleural effusion, copd exacerbation Do you want consulting provider notified?: Yes, Notify in am 04/11/22 08:30 Consult Physician Routine Consulting Provider: Harshil Elmore Consult Reason/Comments: PSBO Do you want consulting provider notified?: Already Contacted Primary care physician: Iron Moreno Hospital Course: Final diagnosis Acute metabolic encephalopathy, Improved Acute urinary tract infection and recurrent UTI, present on admission Acute partial small bowel obstruction versus ileus Atrial fibrillation with rapid regular rate, Currently rate controlled 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 History of compression fractures/spine requiring surgery. History of colostomy and reversal due to perforation of the sigmoid diverticulitis. DVT and GI prophylaxis Full code Discharge disposition Patient is being discharged in a stable condition with guarded prognosis to [facility]. Patient will follow-up with Dr. Moreno in the outpatient setting upon discharge. Patient is to continue with current medications including prednisone taper and oral augmentin. Total time taken is greater than 35 minutes. Hospital course This is a 71-year-old male who was recently admitted with ams, abdominal pain and possible ileus vs partial bowel obstruction. Patient was recently admitted and discharged to rehab for PT/OT therapy and developed abdominal pain. Patient was told that he is not a surgical candidate and to continue with conservative measures. Patient recently diagnosed with adenocarcinoma with mets to the bone and has not had treatment. Patient and family discussed and given his multiple comorbid conditions, overall prognosis is poor and guarded. They would like to go to [facility]. Recommend full liquid diet. Currently no reports of chest pain, shortness of breath, or palpitations. Patient is afebrile. No reports of nausea or vomiting and patient is tolerating diet. Patient will be discharged to [facility] today. Physical exam: Gen: This is a 71 year old male, awake, alert and oriented x3. well developed, well nourished, morbidly obese HEENT: Head is atraumatic, normocephalic. Pupils equal, round. Sclerae is anicteric. NECK: Supple. No JVD. No lymphadenopathy. No thyromegaly. LUNGS: diminished breath sounds bilaterally with some scattered rhonchi. No intercostal retractions. HEART: Regular rate and rhythm. No murmur. ABDOMEN: Soft. obese. Bowel sounds are present. No masses. No tenderness. EXTREMITIES: No pedal edema. No calf tenderness. NEUROLOGICAL: Patient is awake, alert and oriented x3. Cranial nerves 2 through 12 are grossly intact. Please refer to medication reconciliation sheet for a list of medications. The impression and plan of care has been dictated by Rhina Villanueva, Nurse Practitioner as directed. Dr. Ac MD I have performed a history and examination and MDM of this patient, discussed the same with the dictator, and agree with the dictator's assessment and plan as written ,documented as a scribe. Based on total visit time, I have performed more than 50% of the visit. Patient Condition at Discharge: Fair Plan - Discharge Summary Discharge Rx Participant: No New Discharge Prescriptions: New predniSONE 10 mg PO DIRECTED #30 tab Continue Lactulose 10 gm PO BID Apixaban [Eliquis] 5 mg PO BID #60 tab Metoprolol Tartrate [Lopressor] 50 mg PO TID@0800,1400,2200 Amoxic-Pot Clav 875-125Mg [Augmentin 875-125] 1 tab PO Q12HR 7 Days #14 tab Cyclobenzaprine [Flexeril] 10 mg PO TID@0600,1400,2200 Ipratropium-Albuterol Nebulize [Duoneb 0.5 mg-3 mg/3 ml Soln] 3 ml INHALATION RT-Q8H Sennosides [Senokot] 8.6 mg PO DAILY Tamsulosin [Flomax] 0.4 mg PO DAILY Psyllium Husk 100% [Metamucil Packet] 6 gm PO HS oxyCODONE-APAP 7.5-325MG [Percocet 7.5-325 mg] 1 tab PO Q6HR PRN PRN Reason: Pain Omeprazole 20 mg PO DAILY@0600 Gabapentin [Neurontin] 300 mg PO TID@0600,1400,2200 3 Days #9 cap Discharge Medication List Cyclobenzaprine [Flexeril] 10 mg PO TID@0600,1400,2200 02/03/22 [History] Ipratropium-Albuterol Nebulize [Duoneb 0.5 mg-3 mg/3 ml Soln] 3 ml INHALATION RT-Q8H 02/03/22 [History] Lactulose 10 gm PO BID 03/27/22 [History] Psyllium Husk 100% [Metamucil Packet] 6 gm PO HS 03/27/22 [History] Sennosides [Senokot] 8.6 mg PO DAILY 03/27/22 [History] Tamsulosin [Flomax] 0.4 mg PO DAILY 03/27/22 [History] Apixaban [Eliquis] 5 mg PO BID #60 tab 03/28/22 [Rx] Omeprazole 20 mg PO DAILY@0600 04/02/22 [History] oxyCODONE-APAP 7.5-325MG [Percocet 7.5-325 mg] 1 tab PO Q6HR PRN 04/02/22 [History] Gabapentin [Neurontin] 300 mg PO TID@0600,1400,2200 3 Days #9 cap 04/06/22 [Rx] Metoprolol Tartrate [Lopressor] 50 mg PO TID@0800,1400,2200 04/09/22 [History] Amoxic-Pot Clav 875-125Mg [Augmentin 875-125] 1 tab PO Q12HR 7 Days #14 tab 04/13/22 [Rx] predniSONE 10 mg PO DIRECTED #30 tab 04/13/22 [Rx] Follow up Appointment(s)/Referral(s): Iron Moreno MD [Primary Care Provider] - 1-2 days Activity/Diet/Wound Care/Special Instructions: Patient is going to [facility] Activity as tolerated Recommending continuing with full liquid diet Continue with breathing inhalational treatments and a steroid taper Continue oral Augmentin to complete the course Discharge Disposition: [facility] TO [facility]
--- NOTE | 2022-04-16 13:14 | CDI ---
Documentation Clarification Form Date: 04/16/22 From: Madalyn Tucker Admit Date: 04/09/2022 04:46:00 PM Patient Name: Yamil López Visit Number: [id number] Discharge Date: 04/13/2022 04:09:00 PM ATTENTION: The Clinical Documentation Specialists (CDI) and [facility] Coding Staff appreciate your assistance in clarifying documentation. Please respond to the clarification below the line at the bottom and electronically sign. The CDI & [facility] Coding staff will review the response and follow-up if needed. Please note: Queries are made part of the Legal Health Record. If you have any questions, please contact the author of this message via ITS. Dr. Skyler Shen, Per ED Note it is documented that the patient has sepsis, but is not noted in subsequent documentation. Clarification is requested. History/Risk Factors: metabolic encephalopathy, mets to spinal cord & bone, partial bowel obstruction, COPD w exacerbation, morbid obesity w BMI 41.2, UTI, PAF, atypical atrial flutter, stage 1 sacral pressure ulcer, dementia Clinical Indicators: T 98.2, P 152, R 20, BP 100/86. O2 97, Lactic acid 3.1, WBC 20.2, Neutrophils 16.8 Per ED: This patient had a high probability of imminent or life- threatening deterioration due to sepsis, UTI, atrial flutter with RVR, which required my direct attention, intervention, and personal management. Treatment: IV fluids, IV Vancomycin, IV Zoysn, Please clarify if the sepsis is: [ x ] Sepsis confirmed and POA [ ] Sepsis ruled out [ ] Other condition, please specify [ ] Unable to determine MTDD
== END 2022-04-13 16:09 | disposition hospice, inpatient (51) | DRG 871 ==
LOC: EC 12:48 → 3SCARD 16:46
PROVIDERS: ADMIT Internal Medicine; ATTEND Internal Medicine
PROC: 05HB33Z Insertion of Infusion Device into Right Basilic Vein, Percutaneous Approach (ICD-10-PCS; principal; 2022-04-09)
PROC: 0D9670Z Drainage of Stomach with Drainage Device, Via Natural or Artificial Opening (ICD-10-PCS; 2022-04-09)
DX: A41.9 Sepsis, unspecified organism (principal); G93.41 Metabolic encephalopathy; C79.49 Secondary malignant neoplasm of other parts of nervous system; K56.600 Partial intestinal obstruction, unspecified as to cause; C79.51 Secondary malignant neoplasm of bone; J90 Pleural effusion, not elsewhere classified; J44.1 Chronic obstructive pulmonary disease with (acute) exacerbation; Z68.41 Body mass index [BMI] 40.0-44.9, adult; J98.11 Atelectasis; N39.0 Urinary tract infection, site not specified; I48.4 Atypical atrial flutter; I48.0 Paroxysmal atrial fibrillation; L89.151 Pressure ulcer of sacral region, stage 1; F03.90 Unspecified dementia, unspecified severity, without behavioral disturbance, psychotic disturbance, mood disturbance, and anxiety; E66.01 Morbid (severe) obesity due to excess calories; Z66 Do not resuscitate; Z51.5 Encounter for palliative care; Z20.822 Contact with and (suspected) exposure to COVID-19; I95.9 Hypotension, unspecified; K52.9 Noninfective gastroenteritis and colitis, unspecified; R33.9 Retention of urine, unspecified; R77.8 Other specified abnormalities of plasma proteins; M84.48XS Pathological fracture, other site, sequela; Z79.01 Long term (current) use of anticoagulants; Z79.899 Other long term (current) drug therapy; Z85.118 Personal history of other malignant neoplasm of bronchus and lung; Z90.49 Acquired absence of other specified parts of digestive tract; Z87.891 Personal history of nicotine dependence; Z87.440 Personal history of urinary (tract) infections; Z71.3 Dietary counseling and surveillance; Z88.1 Allergy status to other antibiotic agents; Z80.52 Family history of malignant neoplasm of bladder; Z80.1 Family history of malignant neoplasm of trachea, bronchus and lung; Z80.3 Family history of malignant neoplasm of breast; Z80.51 Family history of malignant neoplasm of kidney
CPT/HCPCS: 36410; 36415; 70450; 71046; 74019; 74177; 76604; 76937; 80048; 80053; 80202; 80306; 80320; 81001; 82140; 82565; 83605; 83880; 84484; 85025; 85610; 85730; 87040; 87086; 87502; 87635; 93005; 94640; 94760; 96365; 96366; 96367; 96368; 96375; 96376; 99291